=== PATIENT | male | born 1960 | race Caucasian/White ===

== ENCOUNTER 2018-03-06 11:48 | Emergency (ER) | payer OTHER ==
--- OUTSIDE RECORDS SUMMARY | 2018-03-06 11:53 | XMS REPORT | Clinical Summary ---
:1960 Author Organization [facility] Address [address] [place] [address] Phone Care Team Providers Name Role Phone Unavailable Primary Care Provider Unavailable Allergies Active Allergy Reactions Severity Noted Date Comments Morphine Nausea Only High 11/20/2017 Current Medications Prescription Sig. Disp. Refills Start End Status Date Date levothyroxine Take 50 mcg by Active (SYNTHROID, mouth Every LEVOTHROID) 50 MCG morning on an tablet empty stomach. insulin aspart Inject 10 Units Active (NOVOLOG) 100 subcutaneously 3 unit/mL InPn (three) times daily before meals And per sliding scale . insulin glargine Inject 30 Units Active 100 unit/mL (3 mL) subcutaneously 2 InPn (two) times daily . digoxin (LANOXIN) Take 1 tablet 30 tablet 05/15/20 Active 0.125 MG tablet (125 mcg total) 17 018 by mouth daily. carvedilol (COREG) Take 1.5 tablets 90 tablet 06/08/20 Active 25 MG (37.5 mg total) 17 018 tabletIndications: by mouth 2 (two) Cardiomyopathy, times daily with unspecified type breakfast and ([facility]), LVAD (left dinner. ventricular assist device) present ([facility]), Personal history of long-term (current) use of anticoagulants, Ischemic cardiomyopathy, Chronic systolic CHF (congestive heart failure) ([facility]) atorvastatin Take 1 tablet (20 30 tablet 07/31/20 Active (LIPITOR) 20 MG mg total) by 17 018 tablet mouth daily. losartan (COZAAR) Take 1 tablet 30 tablet 08/03/20 Active 100 MG tablet (100 mg total) by 17 mouth daily. ferrous sulfate Take 1 tablet 60 tablet 11 08/03/20 Active 325 (65 FE) MG (325 mg total) by 17 018 tablet mouth 2 (two) times daily with breakfast and dinner. gabapentin Take by mouth as Active (NEURONTIN) 100 MG directed Take 400 capsule mg ( 300 mg + 100 mg) three times daily . zolpidem (AMBIEN) Take 10 mg by Active 10 mg tablet mouth every night as needed for Insomnia. folic acid Take 1 tablet (1 90 tablet 3 12/02/19 Active (FOLVITE) 1 MG mg total) by 18 019 tablet mouth daily. amLODIPine Take 1 tablet (5 30 tablet 01/11/20 Active (NORVASC) 5 MG mg total) by 18 019 tabletIndications: mouth daily. Left ventricular assist device present (HCC), LVAD (left ventricular assist device) present (HCC), IDDM (insulin dependent diabetes mellitus) (HCC), Chronic anticoagulation, Depression, unspecified depression type, Coronary artery disease involving [place] coronary artery of [place] heart without angina pectoris, Ischemic cardiomyopathy, AICD (automatic cardioverter/defib rillator) present, Neuropathy tamsulosin Take 1 capsule 90 capsule 3 02/14/20 Active (FLOMAX) 0.4 mg (0.4 mg total) by 18 019 Cp24 24 hr mouth daily. capsuleIndications : Coronary artery disease involving [place] coronary artery of [place] heart without angina pectoris, Essential hypertension, Type 2 diabetes mellitus with other circulatory complication, unspecified rodent exterminator insulin use status, Left ventricular assist device present (HCC), IDDM (insulin dependent diabetes mellitus) (HCC), LVAD (left ventricular assist device) present (HCC), Nonischemic cardiomyopathy (HCC) bumetanide (BUMEX) Take 1 tablet (1 90 tablet 3 02/14/20 Active 1 MG mg total) by 18 019 tabletIndications: mouth daily. Coronary artery disease involving [place] ore[place] coronary artery of [place] heart without angina pectoris, Essential hypertension, Type 2 diabetes mellitus with other circulatory complication, unspecified long-term insulin use status, Left ventricular assist device present (HCC), IDDM (insulin dependent diabetes mellitus) (HCC), LVAD (left ventricular assist device) present (HCC), Nonischemic cardiomyopathy (HCC) eplerenone Take 1 tablet (25 90 tablet 3 02/14/20 Active (INSPRA) 25 MG mg total) by 18 019 tabletIndications: mouth daily. Coronary artery disease involving [place] coronary artery of [place] heart without angina pectoris, Essential hypertension, Type 2 diabetes mellitus with other circulatory complication, unspecified long-term insulin use status, Left ventricular assist device present (HCC), IDDM (insulin dependent diabetes mellitus) (HCC), LVAD (left ventricular assist device) present (HCC), Nonischemic cardiomyopathy (HCC) warfarin 6 mg daily by 03/01/20 Active (COUMADIN) 1 MG mouth. 18 tabletIndications: LVAD (left ventricular assist device) present (HCC), IDDM (insulin dependent diabetes mellitus) (HCC), Chronic anticoagulation, Depression, unspecified depression type, Coronary artery disease involving [place] coronary artery of [place] heart without angina pectoris, Ischemic cardiomyopathy, AICD (automatic cardioverter/defib rillator) present, Neuropathy warfarin 6 mg daily by 03/01/20 Active (COUMADIN) 5 MG mouth. 18 tabletIndications: LVAD (left ventricular assist device) present (HCC), IDDM (insulin dependent diabetes mellitus) (HCC), Chronic anticoagulation, Depression, unspecified depression type, Coronary artery disease involving [place] coronary artery of [place] heart without angina pectoris, Ischemic cardiomyopathy, AICD (automatic cardioverter/defib rillator) present, Neuropathy digoxin (LANOXIN) Take 1 tablet 360 tablet 0 05/05/20 0.125 MG tablet (125 mcg total) 16 017 by mouth daily. atorvastatin Take 1 tablet (20 30 tablet 11 06/30/20 Discontinued (LIPITOR) 20 MG mg total) by 16 017 tablet mouth daily. gabapentin Take 1 capsule 90 capsule 3 10/06/20 Discontinued (NEURONTIN) 300 MG (300 mg total) by 16 018 capsuleIndications mouth 3 (three) : Chronic systolic times daily. CHF (congestive heart failure) (HCC), Ischemic cardiomyopathy, Hyperlipidemia, Cardiomyopathy (HCC), LVAD (left ventricular assist device) present (HCC), Personal history of long-term (current) use of anticoagulants folic acid Take 1 tablet (1 30 tablet 11 11/29/19 Discontinued (FOLVITE) 1 MG mg total) by 17 018 tablet mouth daily. insulin aspart Inject 0.22 mLs 13.2 mL 11 01/20/20 Discontinued protamine-insulin (22 Units total) 17 017 aspart (NOVOLOG subcutaneously 2 MIX 70/30) 100 (two) times daily unit/mL (70-30) with breakfast Soln injection and dinner. ivabradine Take 1 tablet (5 60 tablet 11 01/20/20 (CORLANOR) 5 mg mg total) by 17 018 Tab tablet mouth 2 (two) times daily. magnesium oxide Take 1 tablet 60 tablet 11 01/20/20 (MAG-OX) 400 mg (400 mg total) by 17 018 tablet mouth 2 (two) times daily. tamsulosin Take 1 capsule 30 capsule 11 01/20/20 (FLOMAX) 0.4 mg (0.4 mg total) by 17 018 Cp24 24 hr capsule mouth daily. aluminum & Take 30 mLs by 355 mL 0 01/20/20 magnesium mouth every 6 17 018 hydroxide-simethic (six) hours as one (MAALOX PLUS) needed. 400-400-40 mg/[address] 1 365 0 01/20/20 (DULCOLAX) 10 mg suppository (10 suppository 17 017 suppository mg total) rectally daily as needed for up to 150 days. docusate sodium Take 1 capsule 10 capsule 0 01/20/20 (COLACE) 100 MG (100 mg total) by 17 018 capsule mouth 2 (two) times daily. pantoprazole Take 1 tablet (40 60 tablet 11 01/20/20 (PROTONIX) 40 MG mg total) by 17 018 tablet mouth 2 (two) times daily. senna (SENOKOT) Take 1 tablet 30 tablet 11 01/20/20 8.6 mg tablet (8.6 mg total) by 17 018 mouth every night as needed for Constipation. simethicone Take 1 tablet (80 30 tablet 0 01/20/20 (MYLICON) 80 MG mg total) by 17 018 chewable tablet mouth every 6 (six) hours as needed for Flatulence. sertraline Sertraline take 36 tablet 01/20/20 (ZOLOFT) 25 MG three tab (75mg) 17 018 tablet per day on Mon, Wed, Fri. sertraline Sertraline 50mg 16 tablet 01/20/20 (ZOLOFT) 50 MG one tab per day 17 018 tablet on Sun, Tue, Thurs, and Sat. losartan (COZAAR) Take 1 tablet (50 30 tablet 01/31/20 Discontinued 50 MG tablet mg total) by 17 017 mouth daily. eplerenone Take 1 tablet (25 30 tablet 01/31/20 (INSPRA) 25 MG mg total) by 17 018 tablet mouth daily. warfarin Take by mouth as 01/20/20 Discontinued (COUMADIN) 3 MG directed Take 7 17 017 tablet mg every MWF, take 6 mg every Sun, Tues, Thurs, Sat. warfarin as directed Take 01/20/20 Discontinued (COUMADIN) 4 MG 7 mg every MWF, 17 017 tablet take 6 mg every Sun, Tues, Thurs, Sat. bumetanide (BUMEX) Take 1 tablet (1 30 tablet 02/13/20 1 MG mg total) by 17 018 tabletIndications: mouth daily. Cardiomyopathy ([facility]), LVAD (left ventricular assist device) present ([facility]), Personal history of long-term (current) use of anticoagulants, Ischemic cardiomyopathy, Chronic systolic CHF (congestive heart failure) ([facility]) carvedilol (COREG) Take 1 tablet (25 60 tablet 02/13/20 Discontinued 25 MG mg total) by 17 017 tabletIndications: mouth 2 (two) Cardiomyopathy times daily with ([facility]), LVAD (left breakfast and ventricular assist dinner. device) present ([facility]), Personal history of long-term (current) use of anticoagulants, Ischemic cardiomyopathy, Chronic systolic CHF (congestive heart failure) ([facility]) carvedilol (COREG) Take 1.5 tablets 60 tablet 03/16/20 Discontinued 25 MG (37.5 mg total) 017 tabletIndications: by mouth 2 (two) Cardiomyopathy, times daily with unspecified type breakfast and ([facility]), LVAD (left dinner. ventricular assist device) present ([facility]), Personal history of long-term (current) use of anticoagulants, Ischemic cardiomyopathy, Chronic systolic CHF (congestive heart failure) ([facility]) warfarin Take one tab PO 30 tablet 5 04/20/20 Discontinued (COUMADIN) 5 MG with additional 1 017 tabletIndications: mg tabs for total LVAD (left of 7 mg MWF, 6 mg ventricular assist all other days. device) present ([facility]), IDDM (insulin dependent diabetes mellitus) ([facility]), Chronic anticoagulation, Depression, unspecified depression type, Coronary artery disease involving [place] coronary artery of [place] heart without angina pectoris, Ischemic cardiomyopathy, Type 2 diabetes mellitus with other circulatory complication, AICD (automatic cardioverter/defib rillator) present, Neuropathy warfarin Take PO with 5 mg 90 tablet 5 04/20/20 Discontinued (COUMADIN) 1 MG tab for total of 017 tabletIndications: 7 mg MWF, 6 mg LVAD (left all other days. ventricular assist device) present ([facility]), IDDM (insulin dependent diabetes mellitus) ([facility]), Chronic anticoagulation, Depression, unspecified depression type, Coronary artery disease involving [place] ore[place] coronary artery of [place] heart without angina pectoris, Ischemic cardiomyopathy, Type 2 diabetes mellitus with other circulatory complication, AICD (automatic cardioverter/defib rillator) present, Neuropathy empagliflozin Take 1 tablet (10 30 tablet 5 08/31/20 Discontinued (JARDIANCE) 10 mg mg total) by 017 tablet mouth daily. Missing or 3 (three) times Discontinued Non-Formulary daily V-Go 2-4 018 Medication units depends on blood sugar . sildenafil Take 0.5 tablets 30 tablet 3 10/05/20 (VIAGRA) 100 MG (50 mg total) by 017 tabletIndications: mouth daily as LVAD (left needed for ventricular assist Erectile device) present Dysfunction for ([facility]), IDDM up to 30 days. (insulin dependent diabetes mellitus) ([facility]), Chronic anticoagulation, Depression, unspecified depression type, Coronary artery disease involving [place] coronary artery of [place] heart without angina pectoris, Ischemic cardiomyopathy, AICD (automatic cardioverter/defib rillator) present, Neuropathy warfarin Take PO with 5 mg 90 tablet 11 11/15/20 Discontinued (COUMADIN) 1 MG tab for total of 17 018 tabletIndications: 7 mg MWF, 6 mg LVAD (left all other days. ventricular assist device) present (HCC), IDDM (insulin dependent diabetes mellitus) ([facility]), Chronic anticoagulation, Depression, unspecified depression type, Coronary artery disease involving [place] coronary artery of [place] heart without angina pectoris, Ischemic cardiomyopathy, AICD (automatic cardioverter/defib rillator) present, Neuropathy warfarin Take one tab PO 30 tablet 11 11/15/20 Discontinued (COUMADIN) 5 MG with additional 1 17 018 tabletIndications: mg tabs for total LVAD (left of 7 mg MWF, 6 mg ventricular assist all other days. device) present ([facility]), IDDM (insulin dependent diabetes mellitus) ([facility]), Chronic anticoagulation, Depression, unspecified depression type, Coronary artery disease involving [place] ore[place] coronary artery of [place] heart without angina pectoris, Ischemic cardiomyopathy, AICD (automatic cardioverter/defib rillator) present, Neuropathy nystatin Apply topically 2 30 g 0 12/01/19 Discontinued (MYCOSTATIN) (two) times 18 018 100,000 unit/gram daily. cream triamcinolone Apply topically 2 30 g 0 12/01/19 (KENALOG) 0.1 % (two) times daily 18 018 topical cream for 7 days to affected area.. Hospital, Clinic, or Other Ordered Dose Route Frequency Start Date End Date Status Facility Administered Medication influenza vaccine (PF) 0.5 mL IM Once 08/31/2017 08/31/2017 Ended [id number] (AFLURIA) syringe (5 yrs+)Indications: Flu vaccine need Active Problems Patient Care Coordination Note Patient info: 56 year old male with h/o T2DM, HTN, CKD, HLD, HCV, CAD, ischemic CMP s/p LVAD (HM2 as DT; 03/27/2016) c/b recurrent UGIB 07/25/16 and 01/18/16 , AVM and diverticulosis Most recent Admission: 11/21/2017- 11/30/2017: Admitted for abdominal pain and melena. He reports epigastric abdominal pain for one week that he describes as dull, non-radiating, and improves with eati ng. He then developed melena. On admission, he was hemodynamically stable. His labs revealed anemia with hemoglobin of 8.7 decreased from 11 at baseline. His INR was therapeutic at 2.3. Other labs withi n normal limits. He was transfused and hemoglobin increased to 9.9. EGD on 11/22 revealed polyps in gastric antrum. No bleeding identified. 01/13/2017 - 01/19/2017. Pt with h/o LVAD on coumadin presented with melena. He has h/o small bowel AVMs. GI performed balloon enteroscopy after coumadin was held and did not find any lesions or signs o f bleeding. Pt was restarted on coumadin and hep drip and monitored with no recurrence of bleeding in house. His INR goal is now lowered to 1.5-2.5 due to recurrent GI bleed. He is stable for dc home and will f/u in the HF/transplant clinic. Transplant status: DT - + cannabis screens with admitted continued cannabis use Immunization status: There is no immunization history on file for this patient. Current Pump Speed: 9000 RPMs Speed change Echo due : Due. Ordered for 02/28/2018. Needs to be scheduled Last Echo: 05/25/2017 Next ICD Interrogation: 07/11/2018 Last ICD interrogation: 01/11/2018 Last RHC: 03/07/2016 AC Goal: 1.5-2.5 Problem Noted Date Cardiomyopathy (HCC) 11/21/2017 GI bleed 11/20/2016 Acute blood loss anemia 11/20/2016 Upper GI bleed 11/19/2016 Anemia requiring transfusions 11/19/2016 Syncope 11/06/2016 Musculoskeletal chest pain 09/29/2016 Substernal chest pain 09/28/2016 HM II, 03/27/2016, DT due to smoking 09/28/2016 IDDM (insulin dependent diabetes mellitus) (HCC) 08/28/2016 Neuropathy 08/28/2016 Gastrointestinal hemorrhage with melena 07/21/2016 Chronic anticoagulation 04/18/2016 Overview: Recent history of AVM, off ASA Currently on Coumadin at 6 mg daily Repeat INR weekly Anemia, blood loss 04/18/2016 Chronic post-operative pain 04/18/2016 Depression 04/18/2016 Hypothyroidism 04/18/2016 Overview: UPDATED BY ICD10 SNOMED/IMO UPDATES Right heart failure (HCC) 03/28/2016 Left ventricular assist device, Heartmate II, implanted 03/27/16 03/27/2016 Overview: Last echo on 06/04/2018: showing increased LVIDd of 5.1 from 4.25, AV opens Repeat speed change echo on 02/28/2018 - pending Current speed of 9000 rpms LDH stable DL site clean and dry No VAD alarms reported Chronic renal disease, stage III 06/18/2015 Overview: Cr ranges 1 - 1.4 Diuretics Chronic systolic CHF due to ischemic cardiomyopathy Overview: NYHA III, Stage D - Bumex 1 mg daily - Carvedilol 37.5 mg BID - Digoxin 0.125 mg QD - Ivabradine 5 mg BID - Eplerenone 25 mg daily - Losartan 100 mg qd for afterload reduction Intolerant to Entresto RHC/LHC done 07/2017 class 2 CAD (coronary artery disease), s/p stent to LAD Overview: Last LHC 10/2014 with 50% stenosis to RCA, OM2, proximal LAD. Patent stent. ASA off due to GIB Atorvastatin Hyperlipidemia Essential hypertension Overview: - Coreg 37.5 mg BID - Losartan 100 mg qd - Add amlodipine 5 mg daily Type 2 diabetes mellitus with circulatory disorder (HCC) Hepatitis C AICD (automatic cardioverter/defibrillator) present, MDT Nonischemic cardiomyopathy (HCC) Resolved Problems Problem Noted Date Resolved Date Ischemic cardiomyopathy 09/18/2017 Encounters Date Type Specialty Care Team Description 03/04/2018 Abstract Transplant Lucrecia Fuentes Rita 03/02/2018 [facility] Charge Visit Transplant Mariah Nieto MD Provider, [facility] Registry Generic 03/01/2018 Hospital Encounter Cardiology Mariah Nieto Left ventricular MD Bettie assist device present (HCC);Left ventricular assist device, HM II, implanted 03/27/2016, DT due to smoking;IDDM (insulin dependent diabetes mellitus) (HCC);Chronic anticoagulation;Depr ession, unspecified depression type;Coronary artery disease involving [place] ore[place] coronary artery of [place] heart without angina pectoris;Ischemic cardiomyopathy;AICD (automatic cardioverter/defibri llator) present, MDT;Neuropathy 03/01/2018 Clinic Visit Transplant Mariah Nieto Chronic systolic CHF MD Bettie due to ischemic cardiomyopathy;Left ventricular assist device, Heartmate II, implanted 03/27/16;Chronic anticoagulation;Ronda nary artery disease involving [place] ore[place] coronary artery of [place] heart without angina pectoris;Essential hypertension;Chronic renal disease, stage III;Left ventricular assist device, HM II, implanted 03/27/2016, DT due to smoking;IDDM (insulin dependent diabetes mellitus) ([facility]) 02/26/2018 Abstract Transplant Lucrecia Fuentes 02/26/2018 Abstract Transplant Tito Sauer, KENZIE 02/21/2018 Anti-coag visit Transplant Abad Perez RN 02/21/2018 Abstract Transplant Benedict Peterson 02/19/2018 Telephone Transplant Tito Saure, Follow-up RN 02/19/2018 Committee Review Transplant Dany Mercado RN 02/18/2018 Committee Review Transplant Tito Sauer, RN 02/14/2018 Anti-coag visit Transplant Abad Perez, KENZIE 02/14/2018 Abstract Transplant Benedict Peterson 02/13/2018 Orders Only Intensive Care Abad Perez, Coronary artery RN disease involving [place] cour[place] oreilles coronary artery of [place] heart without angina pectoris (Primary Dx);Essential hypertension;Type 2 diabetes mellitus with other circulatory complication, unspecified rodent exterminator insulin use status (HCC);Left ventricular assist device, Heartmate II, implanted 03/27/16;IDDM (insulin dependent diabetes mellitus) (HCC);HM II, 03/27/2016, DT due to smoking;Nonischemic cardiomyopathy (HCC) 02/08/2018 Anti-coag visit Transplant Abad Perez RN 02/07/2018 Anti-coag visit Transplant Cindy Yeung RN 02/07/2018 Abstract Transplant Benedict Peterson 01/31/2018 Anti-coag visit Transplant Abad Perez RN 01/31/2018 Abstract Transplant Benedict Peterson 01/25/2018 Anti-coag visit Transplant Leonela Zavala RN 01/25/2018 Abstract Transplant Benedict Peterson 01/21/2018 Documentation Transplant Shoshana Gonzalez 01/18/2018 Anti-coag visit Transplant Abad Perez RN 01/17/2018 Anti-coag visit Transplant Silvia De La Cruz RN 01/17/2018 Abstract Transplant Benedict Peterson 01/11/2018 Office Visit Cardiology Leandro Martines, Chronic systolic CHF FAMILY READINESS SUPPORT ASSISTANT (congestive heart failure) ([facility]) (Primary Dx) 01/11/2018 Hospital Encounter Cardiology Mariah Nieto MD assist device present (HCC);Left ventricular assist device, HM II, implanted 03/27/2016, DT due to smoking;IDDM (insulin dependent diabetes mellitus) ([facility]);Chronic anticoagulation;Depr ession, unspecified depression type;Coronary artery disease involving [place] coronary artery of [place] heart without angina pectoris;Ischemic cardiomyopathy;AICD (automatic cardioverter/defibri llator) present, MDT;Neuropathy 01/11/2018 Clinic Visit Transplant Mariah Nieto MD assist device present ([facility]) (Primary Dx);Left ventricular assist device, HM II, implanted 03/27/2016, DT due to smoking;IDDM (insulin dependent diabetes mellitus) ([facility]);Chronic anticoagulation;Depr ession, unspecified depression type;Coronary artery disease involving [place] ore[place] coronary artery of [place] heart without angina pectoris;Ischemic cardiomyopathy;Type 2 diabetes mellitus with other circulatory complication 01/04/2018 Anti-coag visit Transplant Abad Perez, KENZIE 01/04/2018 Abstract Transplant Benedict Peterson 12/27/2017 Anti-coag visit Transplant Abad Perez, KENZIE 12/27/2017 Abstract Transplant Benedict Peterson 12/20/2017 Abstract Transplant Benedict Peterson 12/20/2017 Documentation Transplant Shoshana Gonzalez 12/20/2017 Documentation Transplant Shoshana Gonzalez 12/13/2017 Anti-coag visit Transplant Leonela Zavala RN 12/13/2017 Abstract Transplant Benedict Peterson 12/06/2017 Anti-coag visit Transplant Abad Perez, KENZIE 12/06/2017 Abstract Transplant Benedict Peterson 11/22/2017 Procedure Pass Gastroenterology 11/22/2017 Surgery Gastroenterology Amaratunge, UPPER Harshinie ENDOSCOPY,POLYPECTOM MD Nicky Y 11/21/2017 Hospital Encounter Transplant Sandeep Brown MD cardiomyopathy 12/01/2017 Estella, (Primary MD Rory Dx);Gastrointestinal Hasan, Luigi Ali hemorrhage with MD Israel melena;Left Massumi, Susan ventricular assist MD Darian device, Heartmate II, implanted 03/27/16;Anemia, blood loss;Acute blood loss anemia;LVAD (left ventricular assist device) present (HCC);HM II, 03/27/2016, DT due to smoking 11/21/2017 Anesthesia Event Gastroenterology Kt Beckett, AA 11/21/2017 Telephone Transplant Lenoela Zavala, Follow-up (bloody RN stool and nose bleed) 11/16/2017 Anti-coag visit Transplant Abad Perez RN 11/15/2017 Orders Only Transplant Abad Perez Left ventricular RN assist device, II, implanted 03/27/2016, DT due to smoking;IDDM (insulin dependent diabetes mellitus) (HCC);Chronic anticoagulation;Depr ession, unspecified depression type;Coronary artery disease involving [place] ore[place] coronary artery of [place] heart without angina pectoris;Ischemic cardiomyopathy;AICD (automatic cardioverter/defibri llator) present, MDT;Neuropathy 11/07/2017 Abstract Hepatology Adriana Rodriguez RN 11/05/2017 Anti-coag visit Transplant Abad Perez RN 11/05/2017 Abstract Transplant Benedict Peterson 10/26/2017 Anti-coag visit Transplant Abad Perez RN 10/26/2017 Abstract Transplant Benedict Peterson 10/18/2017 Anti-coag visit Transplant Trang Ventura RN 10/18/2017 Abstract Transplant Benedict Peterson 10/05/2017 Clinic Visit Transplant Gio Nguyen Left ventricular MD assist device, GersonMariah II, garcía Alexandre MD 03/27/2016, DT due to smoking;IDDM (insulin dependent diabetes mellitus) (HCC);Chronic anticoagulation;Depr ession, unspecified depression type;Coronary artery disease involving [place] coronary artery of [place] heart without angina pectoris;Ischemic cardiomyopathy;Type 2 diabetes mellitus with other circulatory complication;AICD (automatic cardioverter/defibri llator) present, MDT;Neuropathy 10/05/2017 Hospital Encounter Radiology Tish Hauser Pulmonary nodule [place], LLOYD 10/02/2017 Abstract Hepatology Adriana Rodriguez, KENZIE 09/28/2017 Abstract Hepatology Adriana Rodriguez RN 09/28/2017 Anti-coag visit Transplant Abad Perez RN 09/28/2017 Abstract Transplant Benedict Peterson 09/27/2017 Office Visit Hepatology Yung Herrera History of hepatitis MD Evelin C (Primary Fred, Dx);Hepatic fibrosis Adriana Loomis, (HCC);Immunity RN status testing;History of alcohol abuse;Other cardiomyopathy (HCC);Obesity (BMI 30-39.9) 09/21/2017 Abstract Transplant Lucrecia Fuentes Rita 09/20/2017 Anti-coag visit Transplant Abad Perez RN 09/20/2017 Abstract Transplant Benedict Peterson 09/18/2017 Telephone Transplant Tito Sauer Follow-up RN 09/13/2017 Anti-coag visit Transplant Abad Perez RN 09/12/2017 Lab Requisition Lab Mariah Nieto MD 09/07/2017 Telephone Transplant AVA Mercado RN 09/06/2017 Committee Review Transplant Tito Sauer RN 09/06/2017 Anti-coag visit Transplant Abad Perez RN 09/06/2017 Abstract Transplant Benedict Peterson 09/04/2017 Documentation Transplant Silvia De La Cruz RN 09/04/2017 Telephone Transplant Tish Hauser Follow-carina Samson NP 09/04/2017 Lab Requisition Lab Mariah Nieto MD 08/31/2017 Clinic Visit Transplant Tish Hauser Flu vaccine need LLOYD Samson (Primary Mariah Nieto Dx);Pulmonary nodule MD Bettie 08/31/2017 Hospital Encounter Radiology Tish Hauser LVAD (left [place], FAMILY READINESS SUPPORT ASSISTANT ventricular assist device) present (HCC);Dilated cardiomyopathy (HCC);Systolic congestive heart failure, unspecified congestive heart failure chronicity (HCC) 08/31/2017 Hospital Encounter Tish Hauser LVAD (left [place], FAMILY READINESS SUPPORT ASSISTANT ventricular assist device) present (HCC);Dilated cardiomyopathy (HCC);Systolic congestive heart failure, unspecified congestive heart failure chronicity (HCC) 08/31/2017 Hospital Encounter Respiratory Therapy Tish Hauser LVAD (left [place], FAMILY READINESS SUPPORT ASSISTANT ventricular assist device) present (HCC);Dilated cardiomyopathy (HCC);Systolic congestive heart failure, unspecified congestive heart failure chronicity (HCC) 08/31/2017 Hospital Encounter Respiratory Therapy Feeler, Tish LVAD (left [place], FAMILY READINESS SUPPORT ASSISTANT ventricular assist device) present (HCC);Dilated cardiomyopathy (HCC);Systolic congestive heart failure, unspecified congestive heart failure chronicity (HCC) 08/31/2017 Telephone Transplant Dorothy, Advice Only Silvia Arroyo RN 08/31/2017 Orders Only Transplant Silvia De La Cruz RN 08/31/2017 Orders Only Transplant Tito Sauer, Systolic congestive medical instrument technician failure, unspecified congestive heart failure chronicity (HCC) 08/31/2017 Orders Only Transplant Tito Sauer, Systolic congestive medical instrument technician failure, unspecified congestive heart failure chronicity (HCC) (Primary Dx) 08/30/2017 Hospital Encounter Cardiology Feeler, Tish LVAD (left [place], FAMILY READINESS SUPPORT ASSISTANT ventricular assist device) present (HCC);Dilated cardiomyopathy (HCC);Systolic congestive heart failure, unspecified congestive heart failure chronicity (HCC) 08/30/2017 Hospital Encounter Radiology Feeler, Tish LVAD (left [place], FAMILY READINESS SUPPORT ASSISTANT ventricular assist device) present (HCC);Dilated cardiomyopathy (HCC);Systolic congestive heart failure, unspecified congestive heart failure chronicity (HCC) 08/30/2017 Hospital Encounter Radiology Feeler, Tish LVAD (left [place], FAMILY READINESS SUPPORT ASSISTANT ventricular assist device) present (HCC);Dilated cardiomyopathy (HCC);Systolic congestive heart failure, unspecified congestive heart failure chronicity (HCC) 08/30/2017 Hospital Encounter Cardiology Feeler, Tish LVAD (left [place], FAMILY READINESS SUPPORT ASSISTANT ventricular assist device) present (HCC);Dilated cardiomyopathy (HCC);Systolic congestive heart failure, unspecified congestive heart failure chronicity (HCC) 08/30/2017 Office Visit Transplant Mariah Nieto Left ventricular MD Bettie assist device, Miladys Gtz II, implanted J, [facility] 03/27/2016, DT due to Cindy Zavala smoking;IDDM A, RN (insulin dependent Tito Sauer, diabetes mellitus) RN ([facility]);Chronic Waqar, anticoagulation;Depr Cindy M, ession, unspecified EFFICIENCY MINER BLASTING depression Matos, Maricruz type;Coronary artery L, RD disease involving [place], [place] coronary [place] artery of [place] heart without angina pectoris;Ischemic cardiomyopathy;Type 2 diabetes mellitus with other circulatory complication;AICD (automatic cardioverter/defibri llator) present, MDT;Neuropathy 08/30/2017 Social Work Transplant Waqar Cindy Rita, EFFICIENCY MINER BLASTING 08/30/2017 Abstract Transplant Tito Sauer, Systolic congestive medical instrument technician failure, unspecified congestive heart failure chronicity (HCC) (Primary Dx) 08/29/2017 Outside Orders Tish Hauser, FAMILY READINESS SUPPORT ASSISTANT 08/23/2017 Anti-coag visit Transplant Abad Perez, KENZIE 08/23/2017 Abstract Transplant Benedict Peterson 08/16/2017 Anti-coag visit Transplant Trang Ventura, KENZIE 08/16/2017 Abstract Transplant Benedict Peterson 08/07/2017 Telephone Transplant Tito Sauer, Follow-up RN 08/06/2017 Abstract Transplant Osorio Mendoza 08/03/2017 Clinic Visit Transplant Gio Nguyen Left ventricular MD assist device, Mariah iNeto II, implanted KMD Elle 03/27/2016, DT due to smoking;IDDM (insulin dependent diabetes mellitus) (HCC);Chronic anticoagulation;Depr ession, unspecified depression type;Coronary artery disease involving [place] coronary artery of [place] heart without angina pectoris;Ischemic cardiomyopathy;Type 2 diabetes mellitus with other circulatory complication (HCC);AICD (automatic cardioverter/defibri llator) present, MDT 07/31/2017 Orders Only Transplant Trang Ventrua, KENZIE 07/30/2017 Abstract Transplant Benedict Peterson 07/26/2017 Anti-coag visit Transplant Trang Ventura, KENZIE 07/26/2017 Abstract Transplant Benedict Peterson 07/20/2017 Clinic Visit Transplant Mariah Nieto LVAD (tanisha Alexandre MD ventricular assist device) present (HCC) 07/19/2017 Anti-coag visit Transplant Abad Perez, KENZIE 07/19/2017 Telephone Transplant Marlene Bhatt 07/12/2017 Telephone Transplant Dorothy, Advice Only Silvia Arroyo RN 07/12/2017 Anti-coag visit Transplant Abad Perez, KENZIE 07/12/2017 Abstract Transplant Benedict Peterson 07/06/2017 Anti-coag visit Transplant Abad Perez, KENZIE 07/06/2017 Abstract Transplant Benedict Peterson 07/06/2017 Abstract Transplant Benedict Peterson 06/28/2017 Anti-coag visit Transplant Abad Perez RN 06/28/2017 Abstract Transplant Benedict Peterson 06/21/2017 Anti-coag visit Transplant Abad Perez RN 06/21/2017 Abstract Transplant Benedict Peterson 06/14/2017 Anti-coag visit Transplant Abad Perez RN 06/14/2017 Abstract Transplant Benedict Peterson 06/08/2017 Orders Only Transplant Abad Perez, Cardiomyopathy, RN unspecified type ([facility]);LVAD (left ventricular assist device) present ([facility]);Personal history of long-term (current) use of anticoagulants;Ische rodney cardiomyopathy;Chron ic systolic CHF (congestive heart failure) ([facility]) 06/06/2017 Telephone Transplant Tish Hauser plan LLOYD Samson 06/04/2017 Clinic Visit Transplant Gio Nguyen, Left ventricular MD assist device Tish Hauser present ([facility]) LLOYD Samson (Primary Dx);Left ventricular assist device, HM II, implanted 03/27/2016, DT due to smoking;IDDM (insulin dependent diabetes mellitus) ([facility]);Chronic anticoagulation;Depr ession, unspecified depression type;Coronary artery disease involving [place] coronary artery of [place] heart without angina pectoris;Ischemic cardiomyopathy;Type 2 diabetes mellitus with other circulatory complication ([facility]) 06/04/2017 Hospital Encounter Cardiology Left ventricular assist device present (HCC) 06/04/2017 Hospital Encounter Cardiology Mariah Nieto MD assist device, HM II, implanted 03/27/2016, DT due to smoking;IDDM (insulin dependent diabetes mellitus) ([facility]);Chronic anticoagulation;Depr ession, unspecified depression type;Coronary artery disease involving [place] coronary artery of [place] heart without angina pectoris;Ischemic cardiomyopathy;Type 2 diabetes mellitus with other circulatory complication ([facility]);AICD (automatic cardioverter/defibri llator) present, MDT 05/24/2017 Anti-coag visit Transplant Abad Perez RN 05/24/2017 Abstract Transplant Benedict Peterson 05/17/2017 Anti-coag visit Transplant Silvia De La Cruz RN 05/17/2017 Abstract Transplant Benedict Peterson 05/15/2017 Orders Only Transplant Angelitohina, Silvia Sosa RN unspecified type ([facility]);LVAD (left ventricular assist device) present ([facility]);Personal history of long-term (current) use of anticoagulants;Ische rodney cardiomyopathy;Chron ic systolic CHF (congestive heart failure) (HCC) 05/10/2017 Anti-coag visit Transplant Leonela Zavala RN 05/10/2017 Abstract Transplant Benedict Peterson 05/03/2017 Anti-coag visit Transplant Abad Perez RN 05/03/2017 Abstract Transplant Benedict Peterson 04/26/2017 Anti-coag visit Transplant Abad Perez RN 04/26/2017 Abstract Transplant Benedict Peterson 04/25/2017 Clinic Visit Transplant Orion Left ventricular Marcus Faustin MD assist device, HM II, implanted 03/27/2016, DT due to smoking (Primary Dx);IDDM (insulin dependent diabetes mellitus) ([facility]);Chronic anticoagulation;Depr ession, unspecified depression type;Coronary artery disease involving [place] coronary artery of [place] heart without angina pectoris;Ischemic cardiomyopathy;Type 2 diabetes mellitus with other circulatory complication (HCC) 04/20/2017 Clinic Visit Transplant Tish Hauser Left ventricular LLOYD Samson assist device, HM II, implanted 03/27/2016, DT due to smoking;IDDM (insulin dependent diabetes mellitus) (HCC);Chronic anticoagulation;Depr ession, unspecified depression type;Coronary artery disease involving [place] coronary artery of [place] heart without angina pectoris;Ischemic cardiomyopathy;Type 2 diabetes mellitus with other circulatory complication (HCC);AICD (automatic cardioverter/defibri llator) present, MDT 04/12/2017 Anti-coag visit Transplant Abad Perez RN 04/12/2017 Abstract Transplant Benedict Peterson 04/05/2017 Anti-coag visit Transplant Abad Perez RN 04/05/2017 Abstract Transplant Benedict Peterson 03/29/2017 Anti-coag visit Transplant Abad Perez RN 03/29/2017 Abstract Transplant Benedict Peterson 03/22/2017 Anti-coag visit Transplant Abad Perez RN 03/16/2017 Initial consult Transplant Maricruz Matos Rebeca Alexander RD 03/16/2017 Clinic Visit Transplant Mariah Nieto MD ([facility]);LVAD (left [place], ventricular assist Marcus Faustin MD device) present ([facility]);Personal history of long-term (current) use of anticoagulants;Histo ry of marijuana use;Iron deficiency anemia;On statin therapy;Cardiomyopat hy, unspecified type (HCC);Ischemic cardiomyopathy;Chron ic systolic CHF (congestive heart failure) ([facility]) 03/15/2017 Abstract Transplant Benedict Peterson 03/08/2017 Anti-coag visit Transplant Abad Perez RN 03/08/2017 Abstract Transplant Benedict Peterson after 03/05/2017 Immunizations Name Dates Previously Given Next Due Influenza Three-TIV PF 5+ YR 08/31/2017 Family History Medical History Relation Name Comments defects Brother Relation Name Status Comments Brother Social History Tobacco Use Types Packs/Day Years Used Date Former Smoker 0.25 Quit: 12/28/2015 Smokeless Tobacco: Never Used Tobacco Cessation: Ready to Quit: Yes; Counseling Given: Yes Comments: e cigg with thc 12/28/2015 quit date. Alcohol Use Drinks/Week oz/Week Comments No social use Sex Assigned at Date Recorded Not on file Last Filed Vital Signs Vital Sign Reading Time Taken Blood Pressure 104/71 03/01/2018 9:09 AM CDT Pulse 77 03/01/2018 9:09 AM CDT Temperature 36.8 C (98.2 F) 03/01/2018 9:09 AM CDT Respiratory Rate 18 03/01/2018 9:09 AM CDT Oxygen Saturation 98% 03/01/2018 9:09 AM CDT Inhaled Oxygen Concentration - - Weight 113.4 kg (249 lb 14.4 oz) 03/01/2018 9:09 AM CDT Height 181.6 cm (5' 11.5") 03/01/2018 9:09 AM CDT Body Mass Index 34.37 03/01/2018 9:09 AM CDT Plan of Treatment Date Type Specialty Care Team Description 03/28/2018 Office Visit Hepatology Yung Herrera MD [address] [address] Resource, [facility] A 04/12/2018 Clinic Visit Transplant Mariah Nieto MD [address] [place] [address] [phone] 04/12/2018 Initial consult Transplant Maricruz Matos, RD Health Maintenance Due Date Last Done Comments INFLUENZA VACCINE 08/19/2018 08/31/2017 Implants Implanted Type Area Building Construction Teacher Device Expiration Model / Identifier Date Serial / Lot Ctrl Pkt Kt Seal Hrtmate Ii - [id number] Cardiovascular THORATEC SANJIV [id number] / Implanted: Qty: 1 on 03/27/2016 by Gene Pradhan MD VAD- [id number] / Collar Hmii Sealed Outflow [id number] - [id number] Cardiovascular N/A: THORATEC SANJIV 01/16/2019 [id number] / Implanted: Qty: 1 on 03/27/2016 by Gene Pradhan MD Chest / [id number] Ring Sewing Apical Strl 1065 - [id number] Cardiovascular N/A: THORATEC SANJIV 01/16/2019 1065 / Implanted: Qty: 1 on 03/27/2016 by Gene Pradhan MD Chest / [id number] Inflw Pack And Hmii Sealed [id number] - [id number] Cardiovascular N/A: THORATEC SANJIV 01/16/2019 [id number] / Implanted: Qty: 1 on 03/27/2016 by Gene Pradhan MD Chest / [id number] Graft Otflw Hmii Sealed [id number] - [id number] Cardiovascular N/A: THORATEC SANJIV 01/16/2019 [id number] / Implanted: Qty: 1 on 03/27/2016 by Gene Pradhan MD Chest / [id number] Ctrl Pkt Hrtmate Ii [id number] - [id number] Cardiovascular THORATEC SANJIV [id number] / Implanted: Qty: 1 on 03/27/2016 by Gene Pradhan MD [id number] / Ctrl Pkt Hrtmate Ii [id number] - [id number] Cardiovascular THORATEC SANJIV [id number] / Implanted: Qty: 1 on 03/27/2016 [id number] / Tachosil Absrb Ptch 4.8x4.8cm [id number] - [id number] Cement/Filler/Adh N/A: KRAUS:BIOSCI 02/16/2017 [id number] / Implanted: Qty: 1 on 03/27/2016 by Gene Pradhan MD esive Chest / [id number] Procedures Procedure Name Priority Date/Time Associated Diagnosis Comments UPPER 11/22/2017 3:00 PM Gastrointestinal ENDOSCOPY,POLYPECTOM TANK CAR RECONDITIONER hemorrhage, unspecified Y gastrointestinal hemorrhage type Special Needs (CV ANESTHESIA SCHEDULED WITH APRIL) CRITICAL CARE Routine 11/21/2017 2:54 AM TANK CAR RECONDITIONER after 03/05/2017 Results ECHOCARDIOGRAM REPORT - SCAN (03/01/2018 5:09 PM)2D Echo W/Doppler(CW/PW/Color ) (03/01/2018 10:30 AM)Only the most recent of2 resultswithin the time period is included. 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 Data Management Associate Sarwat Corley Interpreting John Henderson MD Physician Procedure Type of Study TTE procedure:2DECHO W DOPPLER(CW/PW/COLOR) (Routine) Indications:Known or suspected heart failure and LVAD Evaluation - Speed change. Clinical History HGB 13.0 HCT 40.9 % AICD, CAD, CKD, CHF, DM, Hep. C, HTN, ICMP s/p LVAD HM II (03/27/2016) Height: 71.5 inches Weight: 112.94 kg (249 lbs) BSA: 2.33 m^2 BMI: 34.24 kg/m^2 HR: 62 bpm BP: 104/71 mmHg Summary LVAD Device: HM II . Baseline Speed 9000 RPM. Other speeds assessed: 8600, 9400 RPM 9000 RPM (baseline) -LVIDd 5.0 cm; AoV opens ; AoV opening duration 152 ms; none AR; trace MR; mild TR; est RVSP=25 mmHg+ RAP; RVOT VTI=13.2 cm; Mitral E jamila=0.92 m/s; Ventricular septal position: indet. Inflow Cannula . Peak Systolic Velocity: 0.87 m/sec and Peak Diastolic Velocity: 0.4 m/sec. Outflow Graft . Peak Systolic Velocity: 1.04 m/sec and Peak Diastolic Velocity: 0.48 m/sec. 8600 RPM -LVIDd 5.3 cm; AoV opens ; AoV opening duration 168 ms; none AR; trace MR; mild TR; est RVSP=25 mmHg+ RAP; RVOT VTI=15.6 cm; Mitral E jamila=indet m/s; Ventricular septal position: indet. 9400 RPM -LVIDd 4.6 cm; AoV opens ; AoV opening duration 143 ms; none AR; mild MR; mild TR; est RVSP=25 mmHg+ RAP; RVOT VTI=12.3 cm; Mitral E jamila=indet m/s; Ventricular septal position: indet. Previous Study In comparison with the prior exam on 03-29-16 there are no significant changes. Signature Findings Technical Quality: Technically adequate exam. Left Ventricle No evidence of LV hypertrophy. The left ventricle is chamber size (by vol index) is severely enlarged (male - LVED vol >100ml/m2) . All of the LV segments are severely hypokinetic . Global LV systolic function severely reduced . Left AtriumLA size is mildly enlarged (35-41 ml/m2) . Right VentricleRV pacing wire is visualized . RV chamber size is mildly enlarged . Global RV systolic function is low normal . Right Atrium RA pacing wire is visualized . RA cavity size is normal . RA catheter is visualized . Aortic Valve Mild AoV cusp thickening. Mitral Valve Mild MV leaflet thickening. Tricuspid ValveMild tricuspid regurgitation. Estimated peak systolic PA pressure is 25 mmHg + RA pressure. Pulmonic Valve A trace of pulmonary regurgitation. Normal PV structure and function by limited views and Doppler. AortaAortic root size (SInus of Valsalva diameter) is normal . PericardiumNo significant pericardial effusion is visualized based on limited views. IVC/SVC/PA/PV/PleuralThe inferior vena cava is not visualized. The estimated RA pressure by IVC dynamics indeterminate . [facility] Circ SupportA HeartMate II left ventricular assist device (LVAD) is present. Chambers/Structures Left Atrium LA Volume: 90.52 ml LA Area: 28.12 cm^ 2 LA Vol. Index: 39 ml/m^2 Left Ventricle LVIDd: 5.04 cm LV Septum Diastolic: 0.97 cm LV PW Diastolic: 0.9 cm LVEDV Nguyen's:234.13 ml LVEDVI: 100 ml/m^2 Right Ventricle TAPSE: 1.46 cm Aorta Ao Root S of Oksana.: 3.07 cm Doppler/Quantitative Measurements Mitral Valve MV Jamila. 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 Clinical History HGB 13.0 HCT 40.9 % AICD, CAD, CKD, CHF, DM, Hep. C, HTN, ICMP s/p LVAD HM II (03/27/2016) Height: 71.5 inches Weight: 112.94 kg (249 lbs) BSA: 2.33 m^2 BMI: 34.24 kg/m^2 HR: 62 bpm BP: 104/71 mmHg Summary LVAD Device: HM II . Baseline Speed 9000 RPM. Other speeds assessed: 8600, 9400 RPM 9000 RPM (baseline) -LVIDd 5.0 cm; AoV opens ; AoV opening duration 152 ms; none AR; trace MR; mild TR; est RVSP=25 mmHg+ RAP; RVOT VTI=13.2 cm; Mitral E jamila=0.92 m/s; Ventricular septal position: indet. Inflow Cannula . Peak Systolic Velocity: 0.87 m/sec and Peak Diastolic Velocity: 0.4 m/sec. Outflow Graft . Peak Systolic Velocity: 1.04 m/sec and Peak Diastolic Velocity: 0.48 m/sec. 8600 RPM -LVIDd 5.3 cm; AoV opens ; AoV opening duration 168 ms; none AR; trace MR; mild TR; est RVSP=25 mmHg+ RAP; RVOT VTI=15.6 cm; Mitral E jamila=indet m/s; Ventricular septal position: indet. 9400 RPM -LVIDd 4.6 cm; AoV opens ; AoV opening duration 143 ms; none AR; mild MR; mild TR; est RVSP=25 mmHg+ RAP; RVOT VTI=12.3 cm; Mitral E jamila=indet m/s; Ventricular septal position: indet. Previous Study In comparison with the prior exam on 03-29-16 there are no significant changes. Signature Findings Technical Quality: Technically adequate exam. Left Ventricle No evidence of LV hypertrophy. The left ventricle is chamber size (by vol index) is severely enlarged (male - LVED vol >100ml/m2). All of the LV segments are severely hypokinetic . Global LV systolic function severely reduced . Left Atrium LA size is mildly enlarged (35-41 ml/m2) . Right Ventricle RV pacing wire is visualized . RV chamber size is mildly enlarged . Global RV systolic function is low normal . Right Atrium RA pacing wire is visualized . RA cavity size is normal . RA catheter is visualized . Aortic Valve Mild AoV cusp thickening. Mitral Valve Mild MV leaflet thickening. Tricuspid Valve Mild tricuspid regurgitation. Estimated peak systolic PA pressure is 25 mmHg + RA pressure. Pulmonic Valve A trace of pulmonary regurgitation. Normal PV structure and function by limited views and Doppler. Aorta Aortic root size (SInus of Valsalva diameter) is normal . Pericardium No significant pericardial effusion is visualized based on limited views. IVC/SVC/PA/PV/Pleural The inferior vena cava is not visualized. The estimated RA pressure by IVC dynamics indeterminate . [facility] Circ Support A HeartMate II left ventricular assist device (LVAD) is present. Chambers/Structures Left Atrium LA Volume: 90.52 ml LA Area: 28.12 cm^2 LA Vol. Index: 39 ml/m^2 Left Ventricle LVIDd: 5.04 cm LV Septum Diastolic: 0.97 cm LV PW Diastolic: 0.9 cm LVEDV Nguyen's:234.13 ml LVEDVI: 100 ml/m^2 Right Ventricle TAPSE: 1.46 cm Aorta Ao Root S of Oksana.: 3.07 cm Doppler/Quantitative Measurements Mitral Valve MV Jamila. Peak: Tissue Doppler E' Lateral Velocity: 0.09 m/s Tricuspid Valve TR Velocity: 2.45 m/s TR Gradient: 24.01 mmHg CBC with platelet count + automated diff (03/01/2018 9:22 AM)Only the most recent of10 resultswithin the time period is included. Component Value Ref Range WBC 6.7 3.5 - 10.5 K/L RBC 4.91 4.63 - 6.08 M/L Hemoglobin 13.8 13.7 - 17.5 GM/DL Hematocrit 41.3 40.1 - 51.0 % MCV 84.1 79.0 - 92.2 fL MCH 28.1 25.7 - 32.2 pg MCHC 33.4 32.3 - 36.5 GM/DL RDW 15.3 (H) 11.6 - 14.4 % Platelets 166 150 - 450 K/CU MM MPV 10.1 9.4 - 12.4 fL nRBC 0 0 - 0 /100 WBC % Neutros 62 % % Lymphs 28 % % Monos 7 % % Eos 2 % % Baso 1 % # Neutros 4.12 1.78 - 5.38 K/L # Lymphs 1.91 1.32 - 3.57 K/L # Monos 0.46 0.30 - 0.82 K/L # Eos 0.13 0.04 - 0.54 K/L # Baso 0.07 0.01 - 0.08 K/L Immature Granulocytes-Relative 0 0 - 1 % Specimen Performing Laboratory Blood [address] [address] CBC with platelet count + automated diff (03/01/2018 9:22 AM)Only the most recent of19 resultswithin the time period is included. Specimen Performing Laboratory Blood [facility] ([facility]) Narrative The following orders were created for panel order CBC with platelet count + automated diff. Procedure Abnormality Status --------- ------ CBC with platelet count ...[[id number]]AbnormalFinal result Please view results for these tests on the individual orders. Plasma free hemoglobin (03/01/2018 9:22 AM)Only the most recent of8 resultswithin the time period is included. Component Value Ref Range Hgb, Plasma 80.0 (H) 0.0 - 30.0 mg/dl Specimen Performing Laboratory Blood [address] [address] Iron, TIBC, % sat. (without ferritin) (03/01/2018 9:21 AM)Only the most recent of2 resultswithin the time period is included. Component Value Ref Range Iron 90 40 - 160 ug/dL TIBC 310 250 - 450 ug/dL Iron % Saturation 29 20 - 55 % Specimen Performing Laboratory Blood [address] [address] Prothrombin time/INR (03/01/2018 9:21 AM)Only the most recent of56 resultswithin the time period is included. Component Value Ref Range Protime 24.3 (H) 11.7 - 14.7 seconds INR 2.2 <=5.9 Specimen Performing Laboratory Blood [address] [address] Narrative RECOMMENDED COUMADIN/WARFARIN INR THERAPY RANGES STANDARD DOSE: 2.0 - 3.0 Includes: PROPHYLAXIS for venous thrombosis, systemic embolization; TREATMENT for venous thrombosis and/or pulmonary embolus. HIGH RISK: Target INR is 2.5-3.5 for patients with mechanical heart valves. Transferrin (03/01/2018 9:21 AM)Only the most recent of2 resultswithin the time period is included. Component Value Ref Range Transferrin 248 174 - 382 mg/dL Specimen Performing Laboratory Blood [address] [address] Prealbumin (03/01/2018 9:21 AM)Only the most recent of8 resultswithin the time period is included. Component Value Ref Range Prealbumin 18 14 - 45 mg/dL Specimen Performing Laboratory Blood [address] [address] Magnesium (03/01/2018 9:21 AM)Only the most recent of8 resultswithin the time period is included. Component Value Ref Range Magnesium 1.8 1.6 - 2.6 mg/dL Specimen Performing Laboratory Blood [address] [address] Lactate dehydrogenase (LDH) (03/01/2018 9:21 AM)Only the most recent of10 resultswithin the time period is included. Component Value Ref Range LDH 296 (H) 125 - 220 U/L Specimen Performing Laboratory Blood [address] [address] Ferritin (03/01/2018 9:21 AM)Only the most recent of3 resultswithin the time period is included. Component Value Ref Range Ferritin 236 5 - 275 ng/mL Specimen Performing Laboratory Blood [address] [address] Hepatic function panel (03/01/2018 9:21 AM)Only the most recent of10 resultswithin the time period is included. Component Value Ref Range Protein, Total 7.5 6.0 - 8.3 gm/dL Albumin 3.7 3.5 - 5.0 g/dL Total Bilirubin 0.6 0.2 - 1.2 mg/dL Bilirubin, Direct 0.3 0.1 - 0.5 mg/dL Alkaline Phosphatase 142 40 - 150 U/L AST 25 5 - 34 U/L ALT 46 6 - 55 U/L Specimen Performing Laboratory Blood [address] [address] Basic Metabolic Panel (03/01/2018 9:21 AM)Only the most recent of19 resultswithin the time period is included. Component Value Ref Range Sodium 140 136 - 145 meq/L Potassium 3.8 3.5 - 5.1 meq/L Chloride 102 98 - 107 meq/L CO2 28 22 - 29 meq/L BUN 26 (H) 7 - 21 mg/dL Creatinine 1.12 0.57 - 1.25 mg/dL Glucose 137 (H) 70 - 105 mg/dL Calcium 8.9 8.4 - 10.2 mg/dL EGFR 68Comment: ESTIMATED GFR IS NOT ACCURATE mL/min/1.73 sq m CREATININE CLEARANCE IN PREDICTING GLOMERULAR FILTRATION RATE. ESTIMATED GFR IS NOT APPLICABLE FOR DIALYSIS PATIENTS. Specimen Performing Laboratory Blood [address] [address] ARRYTHMIA IMPLANT REPORT - SCAN (02/28/2018 12:20 PM)Only the most recent of3 resultswithin the time period is included.RHYTHM STRIP - SCAN (12/06/2017 11:34 AM)Only the most recent of2 resultswithin the time period is included.POC- Glucose meter (12/01/2017 12:02 PM)Only the most recent of37 resultswithin the time period is included. Component Value Ref Range POC-Glucose Meter 270 (H)Comment: TESTED AT [address] 70 - 110 mg/[place] [address] Specimen Performing Laboratory Blood [address] [address] aPTT (12/01/2017 5:44 AM)Only the most recent of20 resultswithin the time period is included. Component Value Ref Range PTT 75.9 (H) 22.5 - 36.0 seconds Specimen Performing Laboratory Blood - Arm, Right [address] [address] CBC (Hemogram only) (11/30/2017 5:58 AM)Only the most recent of7 resultswithin the time period is included. Component Value Ref Range WBC 7.1 3.5 - 10.5 K/L RBC 4.15 (L) 4.63 - 6.08 M/L Hemoglobin 10.1 (L) 13.7 - 17.5 GM/DL Hematocrit 33.8 (L) 40.1 - 51.0 % MCV 81.4 79.0 - 92.2 fL MCH 24.3 (L) 25.7 - 32.2 pg MCHC 29.9 (L) 32.3 - 36.5 GM/DL RDW 18.7 (H) 11.6 - 14.4 % Platelets 146 (L) 150 - 450 K/CU MM MPV 10.3 9.4 - 12.4 fL nRBC 0 0 - 0 /100 WBC Specimen Performing Laboratory Blood [address] [address] Hemoglobin A1c (11/26/2017 4:45 PM)Only the most recent of3 resultswithin the time period is included. Component Value Ref Range Hemoglobin A1C 7.0 (H) 4.3 - 6.1 % Specimen Performing Laboratory Blood - Arm, Left [address] [address] Lipase (11/26/2017 6:10 AM)Only the most recent of3 resultswithin the time period is included. Component Value Ref Range Lipase 31 8 - 78 U/L Specimen Performing Laboratory Blood - Arm, Left [address] [address] Hemoglobin and hematocrit (11/25/2017 3:35 PM)Only the most recent of5 resultswithin the time period is included. Component Value Ref Range Hemoglobin 9.6 (L) 13.7 - 17.5 GM/DL Hematocrit 30.6 (L) 40.1 - 51.0 % Specimen Performing Laboratory Blood - Arm, Left [facility] [address] XR abdomen / KUB 1 view (11/25/2017 3:27 PM) Specimen Performing Laboratory [facility] Narrative FINAL REPORT ONE VIEW ABDOMEN HISTORY: Epigastric pain COMPARISON: 01/18/2017 FINDINGS: 2 supine AP images of the abdomen were obtained. No dilated loops of large or small intestine are visualized. There is gas in nondilated stomach and large intestine. No abnormal calcifications are visualized. Left ventricular assist device is partially imaged. Imaged lung bases appear clear. No skeletal abnormalities are identified. IMPRESSION: Nonobstructive bowel gas pattern. Signed: Vicky Brewster MD Report Verified Date/Time:11/25/2017 15:59:39 Reading Location: [address] Ortho Consult Reading Room Procedure Note Interface, External Ris In - 11/25/2017 4:27 PM TANK CAR RECONDITIONER FINAL REPORT ONE VIEW ABDOMEN HISTORY: Epigastric pain COMPARISON: 01/18/2017 FINDINGS: 2 supine AP images of the abdomen were obtained. No dilated loops of large or small intestine are visualized. There is gas in nondilated stomach and large intestine. No abnormal calcifications are visualized. Left ventricular assist device is partially imaged. Imaged lung bases appear clear. No skeletal abnormalities are identified. IMPRESSION: Nonobstructive bowel gas pattern. Signed: Vicky Brewster MD Report Verified Date/Time: 11/25/2017 15:59:39 Reading Location: [address] Ortho Consult Reading Room SFUSION SERVICE REPORT - SCAN (11/23/2017 5:42 PM)Only the most recent of3 resultswithin the time period is included.Prepare Leuko-Red RBC (11/22/2017 11: 54 PM) Component Value Ref Range CROSSMATCH COMPATIBLE Unit ABO A Pos UNIT NUMBER [id number] Status TRANSFUSED Blood Bank Product RED BLOOD CELLS PRODUCT CODE S0919D44 CROSSMATCH COMPATIBLE Unit ABO A Pos UNIT NUMBER [id number] Status READY Blood Bank Product RED BLOOD CELLS PRODUCT CODE H3407J25 Specimen Performing Laboratory Other [employer] [place] REPORT OF PROCEDURE - ENDOSCOPY URL (11/22/2017 5:15 PM)Tissue Exam (2017 5:10 PM) Component Value Ref Range Case Report Surgical Pathology Report Case: [id number] Authorizing Provider:Gabriel WellingtoneCollected: 11/22/2017 1710 MD Nicky Ordering Location: [facility] CV Recovery Room 2 Received: 11/23/2017 0806 Pathologist: Antonette Jean MD Specimen:Stomach,Antrum, polyp DIAGNOSIS PART A GASTRIC ANTRUM POLYP, BIOPSY: GASTRIC MUCOSA WITH HYPERPLASTIC FEATURES AND FOCAL INTESTINAL METAPLASIA. NEGATIVE FOR DYSPLASIA OR INVASIVE CARCINOMA. WARTHIN STARRY STAIN FOR HELICOBACTER IS NEGATIVE. Signing Pathologist Direct Phone Line: [phone] CPT Code(s) 33213, 42768 CLINICAL HISTORY Gastrointestinal hemorrhage SPECIMEN SOURCE Stomach antrum polyp GROSS DESCRIPTION The specimen is received in a formalin-filled container labeled with the patient's information and labeled "stomach antrum polyp" and consists of a 0.1 cm fragment of esteban soft tissue submitted in A1. CG/ew SPECIAL STUDIES The following special studies were performed on this case and the interpretation is incorporated in the diagnostic report above: BLOCK A1- WARTHIN STARRY Specimen Performing Laboratory Tissue - Stomach, [place] [address] Transfuse Leuko-Red RBC (11/21/2017 6:30 AM)Only the most recent of2 resultswithin the time period is included.Type and screen, automated ([facility] and CECs only) (11/21/2017 4:42 AM)Only the most recent of3 resultswithin the time period is included. Component Value Ref Range ABO/RH AUTOMATED (BEAKER) A POSITIVE Ab Scrn NEGATIVE Specimen [place] [address] ED ECG Interpretation (11/21/2017 2:54 AM) Narrative Sandeep Brown MD 11/21/20172:54 AM ECG/EKG Interpretation Date/Time: 11/21/2017 1:07 AM Performed by: SANDEEP BROWN Authorized by: SANDEEP BROWN The ECG was interpreted by ED physician. This ECG was not compared with previous ECG(s).The ECG is interpreted as paced. Rate is normal rate. Pacin% capture observed. Clinical Impression: non-specific ECGECG reviewed and does not meet STEMI criteria. Patient tolerance: Patient tolerated the procedure well with no immediate complications Critical Care (11/21/2017 2:54 AM) Narrative Sandeep Brown MD 11/21/20172:54 AM Critical Care Performed by: SANDEEP BROWN Authorized by: SANDEEP BROWN Total critical care time: 40 minutes Critical care time was exclusive of separately billable procedures and treating other patients. Critical care was necessary to treat or prevent imminent or life-threatening deterioration of the following conditions: circulatory failure and cardiac failure. Critical care was time spent personally by me on the following activities: review of old charts, pulse oximetry, ordering and review of laboratory studies, obtaining history from patient or surrogate, evaluation of patient's response to treatment, discussions with consultants, examination of patient, re-evaluation of patient's condition, ordering and review of radiographic studies and ordering and performing treatments and interventions. XR chest 1 view portable / bedside (11/21/2017 2:07 AM) Specimen Performing Laboratory [facility] Narrative FINAL REPORT History: Epistaxis, rectal bleeding, abdominal pain. Comparison: 08/30/2017 Findings: A single view of the chest is submitted. The cardiac silhouette is within normal limits for size. The patient has undergone previous LVAD and left subclavian ICD placement The lung volumes are low. There is no focal consolidation, pneumothorax, large pleural effusion or evidence of overt pulmonary edema. Cervical fusion hardware is in place. There is no acute bony abnormality. Impression: No acute abnormality. Signed: Thang Rodriguez MD Report Verified Date/Time:11/21/2017 02:11:19 Reading Location: [address] Reading Room Procedure Note Interface, External Ris In - 11/21/2017 2:13 AM TANK CAR RECONDITIONER FINAL REPORT History: Epistaxis, rectal bleeding, abdominal pain. Comparison: 08/30/2017 Findings: A single view of the chest is submitted. The cardiac silhouette is within normal limits for size. The patient has undergone previous LVAD and left subclavian ICD placement The lung volumes are low. There is no focal consolidation, pneumothorax, large pleural effusion or evidence of overt pulmonary edema. Cervical fusion hardware is in place. There is no acute bony abnormality. Impression: No acute abnormality. Signed: Thang Rodriguez MD Report Verified Date/Time: 11/21/2017 02:11:19 Reading Location: [address] Reading Room Urinalysis w/ Microscopic (11/21/2017 12:05 AM)Only the most recent of2 resultswithin the time period is included. Component Value Ref Range Color, UA Yellow Clarity, UA Clear Specific [place], UA 1.015 1.001 - 1.035 pH, UA 5.5 5.0 - 8.0 Protein, UA 20 mg/dL (A) Negative Glucose, UA Negative Negative Ketones, UA Negative Negative Bilirubin, UA Negative Negative Blood, UA Small (A) Negative Nitrite, UA Negative Negative Leukocytes, UA Negative Negative Urobilinogen, UA 0.2 0.2 - 1.0 mg/dL RBC, UA 4 /HPF WBC, UA 1 /HPF Squam Epithel, UA <1 /HPF Hyaline Casts, UA 1 /LPF Specimen Source Urine, Voided Specimen Performing Laboratory Urine - Urine, Voided [address] [address] PT/aPTT (11/21/2017 12:01 AM)Only the most recent of2 resultswithin the time period is included. Component Value Ref Range Protime 25.4 (H) 11.7 - 14.7 seconds INR 2.3 <=5.9 PTT 36.2 (H) 22.5 - 36.0 seconds Specimen Performing Laboratory Blood - Line, Venous [address] [address] Narrative RECOMMENDED COUMADIN/WARFARIN INR THERAPY RANGES STANDARD DOSE: 2.0 - 3.0 Includes: PROPHYLAXIS for venous thrombosis, systemic embolization; TREATMENT for venous thrombosis and/or pulmonary embolus. HIGH RISK: Target INR is 2.5-3.5 for patients with mechanical heart valves. Troponin I (not available at [facility]) (11/21/2017 12:01 AM) Component Value Ref Range Troponin I <0.01 0.00 - 0.03 ng/mL Specimen Performing Laboratory Blood - Line, Venous [facility] [address] [place] [address] Narrative Troponin I (TnI) levels must be interpreted in the context of the presenting symptoms and the clinical findings. Elevated TnI levels indicate myocardial damage, but are not specific for ischemic heart disease. Elevated TnI levels are seen in patients with other cardiac conditions (including myocarditis and congestive heart failure), and slight TnI elevations occur in patients with other conditions, including sepsis, renal failure, acidosis, acute neurological disease, and persistent tachyarrhythmia. B-type natriuretic peptide (11/21/2017 12:01 AM)Only the most recent of2 resultswithin the time period is included. Component Value Ref Range BNP 339 (H) 0 - 100 pg/mL Specimen Performing Laboratory Blood - Line, [address] [address] Creatine Kinase (CK), Total and MB (not available at [facility]) (2017 12:01 AM) Component Value Ref Range Total CK 59 29 - 200 U/L CK-MB 1.0 0.0 - 6.6 ng/mL MB Relative Index 1.7 % Specimen Performing Laboratory Blood - Line, Venous [address] [address] Narrative CK-MB Reference Range: <6.7Normal 6.7-10.0Borderline >10.0 Abnormal Amylase (11/21/2017 12:01 AM)Only the most recent of2 resultswithin the time period is included. Component Value Ref Range Amylase 28 25 - 125 U/L Specimen Performing Laboratory Blood - Line, [address] [address] ECG 12 lead (11/20/2017 11:50 PM) Specimen Performing Laboratory [email or web address] Narrative Ventricular Rate 63 BPM Atrial Rate 63 BPM P-R Interval 124 ms QRS Duration 178 ms Q-T Interval 490 ms QTC Calculation(Bazett) 501 ms P [place] -2 degrees R [place] 251 degrees T [place] 87 degrees Poor data quality Sinus rhythm with electronic ventricular pacing Abnormal ECG When compared with ECG of 13-JAN-2017 13:53, No significant changes Confirmed by MD ESTHER, PINA ([id number]) on 11/21/2017 6:07:04 AM Procedure Note Interface, External Ris In - 11/21/2017 6:07 AM TANK CAR RECONDITIONER Ventricular Rate 63 BPM Atrial Rate 63 BPM P-R Interval 124 ms QRS Duration 178 ms Q-T Interval 490 ms QTC Calculation(Bazett) 501 ms P Phoenix -2 degrees R [place] 251 degrees T [place] 87 degrees Poor data quality Sinus rhythm with electronic ventricular pacing Abnormal ECG When compared with ECG of 13-JAN-2017 13:53, No significant changes Confirmed by MD SANTANA YOCHAI ([id number]) on 11/21/2017 6:07:[address] chest without IV contrast (10/05/2017 12:30 PM) Specimen Performing Laboratory [employer] RIS Narrative FINAL REPORT HISTORY: Lung nodule, <1cm COMPARISON : 01/17/2017 Technique : Multiple axial images of the chest were performed from the lung apices to the lung bases without the administration of IV contrast. Images were presented in both the lung and soft tissue windows. This exam was performed according to our departmental dose optimization program which includes automated exposure control, adjustment of the mA and/or kV according to patient size and/or use of iterative reconstructive technique. Comment: The thyroid gland is within normal limits. A left-sided multilead ICD is in place. In the posterior aspect of the trachea, there is a nodular density measuring up to 1.0 cm. This may represent some aspirated/mucus material. However, the findings can be correlated with direct visualization to exclude the possibility of a mass. There is no hilar, mediastinal or axillary lymphadenopathy. An LVAD is in place. The patient does have cardiomegaly. The patient is status post sternotomy. The visualized portions of the spleen, adrenal glands, pancreas, and kidneys are within normal limits. There is cirrhotic morphology of the liver. There is cholelithiasis. The osseous structures as well as the subcutaneous soft tissues are without any abnormalities. In the left lower lobe, there is a stable 3 mm pulmonary nodule. In the right lower lobe, there is a stable 5 mm pulmonary nodule. There is no pleural effusion, pneumothorax or infiltrate. Impression: 1. Total of 2 stable subcentimeter right basilar pulmonary nodules unchanged dating as far back as a CT of 01/27/2016. Continued follow-up CT in 6 months is advised. 2. New nodular density in the posterior trachea, possibly representing aspirated/mucus material. Please see above. Signed: Ric Bass MD Report Verified Date/Time:10/05/2017 14:33:30 Reading Location: [facility] Diagnostic Imaging Reading Room - [place] [address] Procedure Note Interface, External Ris In - 10/05/2017 2:35 PM TANK CAR RECONDITIONER FINAL REPORT HISTORY: Lung nodule, <1cm COMPARISON : 01/17/2017 Technique : Multiple axial images of the chest were performed from the lung apices to the lung bases without the administration of IV contrast. Images were presented in both the lung and soft tissue windows. This exam was performed according to our departmental dose optimization program which includes automated exposure control, adjustment of the mA and/or kV according to patient size and/or use of iterative reconstructive technique. Comment: The thyroid gland is within normal limits. A left-sided multilead ICD is in place. In the posterior aspect of the trachea, there is a nodular density measuring up to 1.0 cm. This may represent some aspirated/mucus material. However, the findings can be correlated with direct visualization to exclude the possibility of a mass. There is no hilar, mediastinal or axillary lymphadenopathy. An LVAD is in place. The patient does have cardiomegaly. The patient is status post sternotomy. The visualized portions of the spleen, adrenal glands, pancreas, and kidneys are within normal limits. There is cirrhotic morphology of the liver. There is cholelithiasis. The osseous structures as well as the subcutaneous soft tissues are without any abnormalities. In the left lower lobe, there is a stable 3 mm pulmonary nodule. In the right lower lobe, there is a stable 5 mm pulmonary nodule. There is no pleural effusion, pneumothorax or infiltrate. Impression: 1. Total of 2 stable subcentimeter right basilar pulmonary nodules unchanged dating as far back as a CT of 01/27/2016. Continued follow-up CT in 6 months is advised. 2. New nodular density in the posterior trachea, possibly representing aspirated/mucus material. Please see above. Signed: Ric Bass MD Report Verified Date/Time: 10/05/2017 14:33:30 Reading Location: [facility] Diagnostic Imaging Reading Room - [place] [address] Hepatitis C RNA, Quantitative (09/27/2017 4:04 PM) Component Value Ref Range HCV PCR, Quantitative HCV RNA not detected HCV RNA not detected Specimen Performing Laboratory Blood [facility] [address] [address] Narrative This test uses a Real-Time Polymerase Chain Reaction (RT-PCR) methodology and was performed using [employer] Ampliprep/BHASKAR TaqMan HCV test kit version 2.0 ( [employer]). Reportable range for this assay is 15 - 100,000,000 IU per mL (1.18 - 8.00 Log IU/mL). POCT INR (09/13/2017 2:01 PM)Only the most recent of3 resultswithin the time period is included. Component Value Ref Range INR (MANUAL) 2.7 Specimen Performing Laboratory Blood PULMONARY FUNCTION - SCAN (09/07/2017 11:41 AM)Creatinine clearance (09/03/2017 10:29 AM) Component Value Ref Range Creatinine 1.35 (H) 0.70 - 1.33 mg/dL Comment: For patients >49 years of age, the reference limit for Creatinine is approximately 13% higher for people identified as -[place]. eGFR If NonAfricn Am 59 (L) > OR=60 mL/min/1.73m2 eGFR If Africn Am 68 > OR=60 mL/min/1.73m2 Creatinine,24 Hr Urin 1.54 0.63 - 2.50 g/24 h Body Surface Area 2.32 Creatinine Clearance 59 (L) 85 - 125 mL/min HEIGHT FEET 6 ft HEIGHT INCHES 0 in Weight 245 Specimen Performing Laboratory Urine [facility] [address] [place] [address] Narrative FASTING:NO URINE VOLUME: 3500/24 CT Brain without IV Contrast (08/31/2017 9:33 AM) Specimen Performing Laboratory [employer] Narrative FINAL REPORT CT head without contrast INDICATION: LVAD, systolic congestive heart failure, dilated cardiomyopathy, heart transplant evaluation TECHNIQUE: Axial noncontrast CT images through the head were obtained. This exam was performed according to our departmental dose optimization program which includes automated exposure control, adjustment of the mA and/or kV according to patient size and/or use of iterative reconstruction technique. COMPARISON: CT head 04/11/2016 FINDINGS: There is no acute intracranial hemorrhage or mass effect. Minimal microvascular ischemic changes are similar to the prior study and chronic appearing. Please note that CT is insensitive for early or small infarcts. Generalized volume loss and vascular calcifications are noted. There is no hydrocephalus or midline shift. Left mastoidectomy changes are stable. The imaged sinuses and right mastoid air cells are well aerated. The globes remain mildly proptotic. The calvarium is intact. IMPRESSION: No acute intracranial hemorrhage or mass effect. Chronic appearing microvascular and involutional changes. Stable left mastoidectomy changes. Signed: Blaire Marsh MD Report Verified Date/Time:08/31/2017 09:58:49 Reading Location: [address] Neuro Reading Room Procedure Note Interface, External Ris In - 08/31/2017 9:58 PM CDT FINAL REPORT CT head without contrast INDICATION: LVAD, systolic congestive heart failure, dilated cardiomyopathy, heart transplant evaluation TECHNIQUE: Axial noncontrast CT images through the head were obtained. This exam was performed according to our departmental dose optimization program which includes automated exposure control, adjustment of the mA and/or kV according to patient size and/or use of iterative reconstruction technique. COMPARISON: CT head 04/11/2016 FINDINGS: There is no acute intracranial hemorrhage or mass effect. Minimal microvascular ischemic changes are similar to the prior study and chronic appearing. Please note that CT is insensitive for early or small infarcts. Generalized volume loss and vascular calcifications are noted. There is no hydrocephalus or midline shift. Left mastoidectomy changes are stable. The imaged sinuses and right mastoid air cells are well aerated. The globes remain mildly proptotic. The calvarium is intact. IMPRESSION: No acute intracranial hemorrhage or mass effect. Chronic appearing microvascular and involutional changes. Stable left mastoidectomy changes. Signed: Blaire Marsh MD Report Verified Date/Time: 08/31/2017 09:58:49 Reading Location: [address] Neuro Reading Room , BONE DENSITY STUDY (08/31/2017 9:29 AM) Specimen Performing Laboratory [facility] Narrative FINAL REPORT Bone mineral density study 08/31/2017. CLINICAL INDICATION: Heart transplant evaluation. COMPARISON: 02/03/2016 FINDINGS: Evaluation of the left and right femoral necks and lumbar spine was performed utilizing a [employer] bone densitometer. Data reflect young adult matched T-scores and age-matched Z scores. IMPRESSION: The left femoral neck bone mineral density is 1.211gm/cm2, the T-score is 1.1, and the Z-score is 1.4. The right femoral neck total bone mineral density is 1.085gm/cm2, the T-score is 0.1, and the Z-score is 0.4. The lumbar spine total bone mineral density is 1.446gm/cm2, the T-score is 1.9, and the Z-score is 1.4. Compared to the prior exam, the bone mineral density of the lumbar spine demonstrates a 1% decrease.The bone density of the left femoral neck demonstrates a 1.4% increase.The bone mineral density of the right femoral neck demonstrates a 4.9% decrease. Signed: Vicky Velazquez MD Report Verified Date/Time:08/31/2017 11:20:44 Reading Location: [address] Reading Room Procedure Note Interface, External Ris In - 08/31/2017 11:23 AM CDT FINAL REPORT Bone mineral density study 08/31/2017. CLINICAL INDICATION: Heart transplant evaluation. COMPARISON: 02/03/2016 FINDINGS: Evaluation of the left and right femoral necks and lumbar spine was performed utilizing a Online [employer] Advance bone densitometer. Data reflect young adult matched T-scores and age-matched Z scores. IMPRESSION: The left femoral neck bone mineral density is 1.211gm/cm2, the T-score is 1.1, and the Z-score is 1.4. The right femoral neck total bone mineral density is 1.085gm/cm2, the T-score is 0.1, and the Z-score is 0.4. The lumbar spine total bone mineral density is 1.446gm/cm2, the T-score is 1.9, and the Z-score is 1.4. Compared to the prior exam, the bone mineral density of the lumbar spine demonstrates a 1% decrease. The bone density of the left femoral neck demonstrates a 1.4% increase. The bone mineral density of the right femoral neck demonstrates a 4.9% decrease. Signed: Vicky Velazquez MD Report Verified Date/Time: 08/31/2017 11:20:44 Reading Location: [address] Reading Room Spirometry wo bronchodilator (08/31/2017 8:34 AM) Narrative Sumit Ray, CONSERVATION OF RESOURCES COMMISSIONER, INSPECTOR [employer]ER [employer]ODUCTS 08/31/20178:34 AM [facility] PFT CHARTING REPORT Infection Control/Hand Hygiene procedures followed throughout the encounter with patient: Yes Patient Identification Method: Patient name verified on armband, and Medical record on armband, Is the order complete?: Yes Account ID#: [id number] Patient Name: Jose Lizama Birthdate: 1960 Age: 57 y.o.Sex: male Admission Date: 08/31/2017Patient Status: Outpatient Reasons/Symptom for having the Test?: the need of pre-op transplant evaluation and other diagnosis/symptoms as noted Type of study/treatment ordered by physician: Single Breath DLCO and Spirometry Lab Results Component Value Date HGB 11.5 (L) 08/30/2017 Ranges: Adult Male 13 - 16.8 g/dlAdult Female 12 - 15 g/dl 6 Minute Walk (read only) 04/20/2017 06/04/2017 08/03/2017 Pulse 65 63 76 SpO2 100 99 97 Study Date: 08/31/17Study Time: 805 ASSESSMENT History & Physical Mode of Arrival: Ambulatory Pulse: 66Resp: 18SPO2: 97 %on ra Pain Assessment Pain:None TESTING/THERAPEUTICS Medications ordered or required for procedure: N/A PT EDUCATION/INSTRUCTIONS Barriers to learning: No known barriers to learning. Learning need identified: Yes, Patient/Family/Guradian was informed of the ordered study by the physician Barriers to performing study or treatment: Patient has no known disability to perform the study or treatment. DISCHARGE The study was completed in accordance with the physician's order and patient released from the lab without adverse outcome. DLCO (single breath diffusion) (08/31/2017 8:34 AM) Narrative Sumit aRy, CONSERVATION OF RESOURCES COMMISSIONER, INSPECTOR [employer]CTS 08/31/20178:34 AM [facility] PFT CHARTING REPORT Infection Control/Hand Hygiene procedures followed throughout the encounter with patient: Yes Patient Identification Method: Patient name verified on armband, and Medical record on armband, Is the order complete?: Yes Account ID#: [id number] Patient Name: Jose Lizama Birthdate: 1960 Age: 57 y.o.Sex: male Admission Date: 08/31/2017Patient Status: Outpatient Reasons/Symptom for having the Test?: the need of pre-op transplant evaluation and other diagnosis/symptoms as noted Type of study/treatment ordered by physician: Single Breath DLCO and Spirometry Lab Results Component Value Date HGB 11.5 (L) 08/30/2017 Ranges: Adult Male 13 - 16.8 g/dlAdult Female 12 - 15 g/dl 6 Minute Walk (read only) 04/20/2017 06/04/2017 08/03/2017 Pulse 65 63 76 SpO2 100 99 97 Study Date: 08/31/17Study Time: 805 ASSESSMENT History & Physical Mode of Arrival: Ambulatory Pulse: 66Resp: 18SPO2: 97 %on ra Pain Assessment Pain:None TESTING/THERAPEUTICS Medications ordered or required for procedure: N/A PT EDUCATION/INSTRUCTIONS Barriers to learning: No known barriers to learning. Learning need identified: Yes, Patient/Family/Guradian was informed of the ordered study by the physician Barriers to performing study or treatment: Patient has no known disability to perform the study or treatment. DISCHARGE The study was completed in accordance with the physician's order and patient released from the lab without adverse outcome. PERIPHERAL VASCULAR REPORT - SCAN (08/30/2017 6:50 PM)Only the most recent of2 resultswithin the time period is included.Arterial doppler legs bilateral (08/30 3:16 PM) Component Value Ref Range Ejection Fraction Specimen Performing Laboratory [facility] ECHO HEARTLAB MKCKESSON CPACS Impressions Right Impression 1. The posterior tibial and dorsalis pedis arteries are patent with Doppler waveforms consistent with an LVAD. 2. The PT pressure is 98 mmHg with an GIOVANY of 0.91 and the DP pressure is 99 mmHg with an GIOVANY of 0.92, within normal range. 3. The great toe pressure is 77 mmHg with a normal TBI of 0.71. 4. The digits have adequate flow by PPG waveforms. Left Impression 1. The posterior tibial and dorsalis pedis arteries are patent with Doppler waveforms consistent with an LVAD. 2. The PT pressure is 101 mmHg with an GIOVANY of 0.94 and the DP pressure is 98 mmHg with an GIOVANY of 0.91, within normal range. 3. The great toe pressure is 85 mmHg with a normal TBI of 0.79. 4. The digits have adequate flow by PPG waveforms. Conclusions Summary Arterial pressures and Doppler waveforms were performed bilaterally. Adequate Doppler waveforms were obtained. Doppler waveforms were consistent with an LVAD. The right and left GIOVANY's were within normal range. The toe pressure and TBI's were within normal range bilaterally. The digits had adequate flow by PPG waveforms bilaterally. Signature Velocities are measured in cm/s ; Diameters are measured in cm Narrative PV [facility] - Lower Extremity Arterial Procedure Demographics Patient Name JOSE LIZAMA Date of Study 08/30/2017 ANTONETTE [id number] Visit Number [id number] Male Accession Number [id number] of 1960 [facility] Room Number Physician SonographerHeaLesly Vaughn Jose Physician , RPMORA Procedure Type of Study: Extremities Arteries: Lower Extremity Arterial Procedure, ARTERIAL (GIOVANY'S W/DOPPLER) ONLY. Indications for Study:Heart transplant evaluation . Patient Status:Routine. Study Location:Vascular Lab. Technical Quality:Adequate visualization. Risk Factors History of Disease + +----+ + !Diagnosis !Date!Comments ! + +----+ + !History/Risk!!DM, HTN, CKD, HLD, HCV, CAD, CHF, Ischemic CMP, S/P ! !Factors:!!LVAD(HM 2) 03/27/16, AVM, AICD, Previous smoker ! + +----+ + Procedure Note Interface, External Ris In - 08/30/2017 5:59 PM CDT [facility] - Lower Extremity Arterial Procedure Demographics Patient Name JOSE LIZAMA Date of Study 08/30/2017 ANTONETTE Age 57 Visit Number [id number] Gender Male Accession Number [id number] Date of 1960 Referring Tish [facility] Room Number Physician Territory Account Executive Aubree Austin Interpreting Lesly Corley T Physician , RPVI Procedure Type of Study: Extremities Arteries: Lower Extremity Arterial Procedure, ARTERIAL (GIOVANY'S W/DOPPLER) ONLY. Indications for Study:Heart transplant evaluation . Patient Status:Routine. Study Location:Vascular Lab. Technical Quality:Adequate visualization. Risk Factors History of Disease + +----+ + !Diagnosis !Date!Comments ! + +----+ + !History/Risk ! !DM, HTN, CKD, HLD, HCV, CAD, CHF, Ischemic CMP, S/P ! !Factors: ! !LVAD(HM 2) 03/27/16, AVM, AICD, Previous smoker ! + +----+ + Impressions Right Impression 1. The posterior tibial and dorsalis pedis arteries are patent with Doppler waveforms consistent with an LVAD. 2. The PT pressure is 98 mmHg with an GIOVANY of 0.91 and the DP pressure is 99 mmHg with an GIOVANY of 0.92, within normal range. 3. The great toe pressure is 77 mmHg with a normal TBI of 0.71. 4. The digits have adequate flow by PPG waveforms. Left Impression 1. The posterior tibial and dorsalis pedis arteries are patent with Doppler waveforms consistent with an LVAD. 2. The PT pressure is 101 mmHg with an GIOVANY of 0.94 and the DP pressure is 98 mmHg with an GIOVANY of 0.91, within normal range. 3. The great toe pressure is 85 mmHg with a normal TBI of 0.79. 4. The digits have adequate flow by PPG waveforms. Conclusions Summary Arterial pressures and Doppler waveforms were performed bilaterally. Adequate Doppler waveforms were obtained. Doppler waveforms were consistent with an LVAD. The right and left GIOVANY's were within normal range. The toe pressure and TBI's were within normal range bilaterally. The digits had adequate flow by PPG waveforms bilaterally. Signature Velocities are measured in cm/s ; Diameters are measured in cm Carotid Doppler Bilateral (08/30/2017 3:16 PM) Component Value Ref Range Ejection Fraction Specimen Performing Laboratory [facility] ECHO HEARTLAB [facility] Impressions Right Impression 1. There is <50% diameter reduction (approximately 49% by 2-D measurement) in the internal carotid artery with a peak velocity of 62/36 cm/sec and heterogeneous plaque. 2. The external carotid artery is within normal limits. 3. The common carotid artery is within normal limits. 4. The vertebral artery flow is antegrade and normal. 5. The subclavian artery is within normal limits where visualized. Left Impression 1. There is <50% diameter reduction (approximately 28% by 2-D measurement) in the internal carotid artery with a peak velocity of 68/38 cm/sec and heterogeneous plaque. 2. The external carotid artery is within normal limits. 3. The common carotid artery is within normal limits. 4. The vertebral artery flow is antegrade and normal. 5. The subclavian artery is within normal limits where visualized. Conclusions Summary Carotid duplex scanning and color flow imaging were performed bilaterally. The arteries were adequately visualized. The bilateral internal carotid arteries had <50% hemodynamically insignificant stenosis (approximately 49% by 2-D measurement on the right, approximately 28% by 2-D measurement on the left) with heterogeneous plaque. The vertebral artery flow was antegrade and normal bilaterally. The subclavian arteries were patent with normal flow bilaterally where visualized. The waveforms were pulsatile with underlying continuous flow consistent with LVAD support. There has been no significant change since the previous examination done on 02/03/2016. Signature Velocities are measured in cm/s ; Diameters are measured in cm Carotid Right Measurements + +----+----+-----+ + + + !Location !PSV !EDV !Angle!%Stenosis 2D!%Stenosis Doppler! Tortuosity ! + +----+----+-----+ + + + !Prox CCA !84.4!45.1!60 !! ! ! + +----+----+-----+ + + + !Dist CCA !71.5!34.6!60 !! ! ! + +----+----+-----+ + + + !Prox ICA !62.5!35.8!60 !49% !<50% ! ! + +----+----+-----+ + + + !Dist ICA !83.8!55.1!60 !! ! ! + +----+----+-----+ + + + !Prox ECA !72.7!31.1!60 !! ! ! + +----+----+-----+ + + + !Vertebral!38.9!24.2!60 !! ! ! + +----+----+-----+ + + + !Prox Subclavian!60.1!13!60 !! ! ! + +----+----+-----+ + + + - There is antegrade vertebral flow noted on the right side. - Additional Measurements:ICAPSV/CCAPSV 1.17.ICAEDV/CCAEDV 1.22. Carotid Left Measurements + +----+----+-----+ + + + !Location !PSV !EDV !Angle!%Stenosis 2D!%Stenosis Doppler! Tortuosity ! + +----+----+-----+ + + + !Prox CCA !88.5!43.4!60 !! ! ! + +----+----+-----+ + + + !Dist CCA !93.2!46.3!60 !! ! ! + +----+----+-----+ + + + !Prox ICA !68!38.1!60 !28% !<50% ! ! + +----+----+-----+ + + + !Dist ICA !70.9!41!60 !! ! ! + +----+----+-----+ + + + !Prox ECA !72.1!35.2!60 !! ! ! + +----+----+-----+ + + + !Vertebral!58.9!32.6!60 !! ! ! + +----+----+-----+ + + + !Prox Subclavian!66.8!25.1!60 !! ! ! + +----+----+-----+ + + + - There is antegrade vertebral flow noted on the left side. - Additional Measurements:ICAPSV/CCAPSV 0.76.ICAEDV/CCAEDV 0.94. Narrative PV LAB - Carotid Duplex Study Demographics Patient Name JOSE LIZAMA Date of Study 08/30/2017 ANTONETTE [id number] Visit Number [id number] Male Accession Number [id number] of 1960 [facility] Room Number [facility] Physician Mojgan Sutherland. TERA Watts Physician , ROSEMARIE Procedure Type of Study: Cerebral: Carotid, CAROTID DOPPLER, BILATERAL. Indications for Study:Heart transplant evaluation . Patient Status:Routine. Study Location:Vascular Lab. Technical Quality:Adequate visualization. Risk Factors History of Disease + +----+ + !Diagnosis !Date!Comments ! + +----+ + !History/Risk!!DM, HTN, CKD, HLD, HCV, CAD, CHF, Ischemic CMP, S/P ! !Factors:!!LVAD(HM 2) 03/27/16, AVM, AICD, Previous smoker ! + +----+ + Procedure Note Interface, External Ris In - 08/30/2017 6:00 PM CDT PV LAB - Carotid Duplex Study Demographics Patient Name JOSE LIZAMA Date of Study 08/30/2017 ANTONETTE Age 57 Visit Number [id number] Gender Male Accession Number [id number] Date of 1960 Referring Tish Hauser Room Number [facility] Physician Territory Account Executive Tay Starks Interpreting TERA Corley Physician , ROSEMARIE Procedure Type of Study: Cerebral: Carotid, CAROTID DOPPLER, BILATERAL. Indications for Study:Heart transplant evaluation . Patient Status:Routine. Study Location:Vascular Lab. Technical Quality:Adequate visualization. Risk Factors History of Disease + +----+ + !Diagnosis !Date!Comments ! + +----+ + !History/Risk ! !DM, HTN, CKD, HLD, HCV, CAD, CHF, Ischemic CMP, S/P ! !Factors: ! !LVAD(HM 2) 03/27/16, AVM, AICD, Previous smoker ! + +----+ + Impressions Right Impression 1. There is <50% diameter reduction (approximately 49% by 2-D measurement) in the internal carotid artery with a peak velocity of 62/36 cm/sec and heterogeneous plaque. 2. The external carotid artery is within normal limits. 3. The common carotid artery is within normal limits. 4. The vertebral artery flow is antegrade and normal. 5. The subclavian artery is within normal limits where visualized. Left Impression 1. There is <50% diameter reduction (approximately 28% by 2-D measurement) in the internal carotid artery with a peak velocity of 68/38 cm/sec and heterogeneous plaque. 2. The external carotid artery is within normal limits. 3. The common carotid artery is within normal limits. 4. The vertebral artery flow is antegrade and normal. 5. The subclavian artery is within normal limits where visualized. Conclusions Summary Carotid duplex scanning and color flow imaging were performed bilaterally. The arteries were adequately visualized. The bilateral internal carotid arteries had <50% hemodynamically insignificant stenosis (approximately 49% by 2-D measurement on the right, approximately 28% by 2-D measurement on the left) with heterogeneous plaque. The vertebral artery flow was antegrade and normal bilaterally. The subclavian arteries were patent with normal flow bilaterally where visualized. The waveforms were pulsatile with underlying continuous flow consistent with LVAD support. There has been no significant change since the previous examination done on 02/03/2016. Signature Velocities are measured in cm/s ; Diameters are measured in cm Carotid Right Measurements + +----+----+-----+ + + + !Location !PSV !EDV !Angle!%Stenosis 2D!%Stenosis Doppler!Tortuosity ! + +----+----+-----+ + + + !Prox CCA !84.4!45.1!60 ! ! ! ! + +----+----+-----+ + + + !Dist CCA !71.5!34.6!60 ! ! ! ! + +----+----+-----+ + + + !Prox ICA !62.5!35.8!60 !49% !<50% ! ! + +----+----+-----+ + + + !Dist ICA !83.8!55.1!60 ! ! ! ! + +----+----+-----+ + + + !Prox ECA !72.7!31.1!60 ! ! ! ! + +----+----+-----+ + + + !Vertebral !38.9!24.2!60 ! ! ! ! + +----+----+-----+ + + + !Prox Subclavian!60.1!13 !60 ! ! ! ! + +----+----+-----+ + + + - There is antegrade vertebral flow noted on the right side. - Additional Measurements:ICAPSV/CCAPSV 1.17.ICAEDV/CCAEDV 1.22. Carotid Left Measurements + +----+----+-----+ + + + !Location !PSV !EDV !Angle!%Stenosis 2D!%Stenosis Doppler!Tortuosity ! + +----+----+-----+ + + + !Prox CCA !88.5!43.4!60 ! ! ! ! + +----+----+-----+ + + + !Dist CCA !93.2!46.3!60 ! ! ! ! + +----+----+-----+ + + + !Prox ICA !68 !38.1!60 !28% !<50% ! ! + +----+----+-----+ + + + !Dist ICA !70.9!41 !60 ! ! ! ! + +----+----+-----+ + + + !Prox ECA !72.1!35.2!60 ! ! ! ! + +----+----+-----+ + + + !Vertebral !58.9!32.6!60 ! ! ! ! + +----+----+-----+ + + + !Prox Subclavian!66.8!25.1!60 ! ! ! ! + +----+----+-----+ + + + - There is antegrade vertebral flow noted on the left side. - Additional Measurements:ICAPSV/CCAPSV 0.76.ICAEDV/CCAEDV 0.94. XR Chest 2 views (08/30/2017 2:44 PM) Specimen Performing Laboratory GE RIS Narrative FINAL REPORT Chest two views compared to January 17 Discussion: Left chest pacemaker and left ventricular assist device are noted. Lungs clear. Heart size normal. No effusion or pneumothorax. Signed: Maximus Miranda MD Report Verified Date/Time:08/30/2017 15:22:59 Reading Location: [facility] [id number] Consult Reading Room Procedure Note Interface, External Ris In - 08/30/2017 3:25 PM CDT FINAL REPORT Chest two views compared to January 17 Discussion: Left chest pacemaker and left ventricular assist device are noted. Lungs clear. Heart size normal. No effusion or pneumothorax. Signed: Maximus Miranda MD Report Verified Date/Time: 08/30/2017 15:22:59 Reading Location: [facility] [id number] Consult Reading Room Renal Complete (08/30/2017 2:00 PM) Specimen Performing Laboratory GE RIS Narrative FINAL REPORT Renal ultrasound Comparison: January 2016 Clinical History:Heart transplant evaluation Technique: Sonographic evaluation of the kidneys was performed.48 images were submitted for interpretation, using a five MHz transducer. Right kidney: The kidney measures 11.1 cm in length.The cortical echogenicity is within normal limits.The cortex measures 1.7 cm.There is no evidence of a focal mass.There is no evidence of hydronephrosis. There is no evidence of a shadowing stone.There is no evidence of a cyst.There is no evidence of a perinephric fluid collection.Flow was visualized to the right kidney. Left kidney: The kidney measures 11.7 cm in length.The cortical echogenicity is within normal limits.The cortex measures 1.7 cm.There is no evidence of a focal mass.There is no evidence of hydronephrosis. There is no evidence of a shadowing stone.There is no evidence of a cyst.There is no evidence of a perinephric fluid collection.Flow was visualized to the left kidney. Survey images of the bladder demonstrate no abnormality. The patient did not have an urge to void. A post void residual was not performed. Incidentally noted the prostate measures 4.6 x 3.1 x 3.4 cm. Impression: The kidneys are normal in size and shape without evidence of hydronephrosis. Signed: Mona Solitario MD Report Verified Date/Time:08/30/2017 15:04:53 Reading Location: [address] Ultrasound Reading Room Procedure Note Interface, External Ris In - 08/30/2017 3:07 PM CDT FINAL REPORT Renal ultrasound Comparison: January 2016 Clinical History: Heart transplant evaluation Technique: Sonographic evaluation of the kidneys was performed. 48 images were submitted for interpretation, using a five MHz transducer. Right kidney: The kidney measures 11.1 cm in length. The cortical echogenicity is within normal limits. The cortex measures 1.7 cm. There is no evidence of a focal mass. There is no evidence of hydronephrosis. There is no evidence of a shadowing stone. There is no evidence of a cyst. There is no evidence of a perinephric fluid collection. Flow was visualized to the right kidney. Left kidney: The kidney measures 11.7 cm in length. The cortical echogenicity is within normal limits. The cortex measures 1.7 cm. There is no evidence of a focal mass. There is no evidence of hydronephrosis. There is no evidence of a shadowing stone. There is no evidence of a cyst. There is no evidence of a perinephric fluid collection. Flow was visualized to the left kidney. Survey images of the bladder demonstrate no abnormality. The patient did not have an urge to void. A post void residual was not performed. Incidentally noted the prostate measures 4.6 x 3.1 x 3.4 cm. Impression: The kidneys are normal in size and shape without evidence of hydronephrosis. Signed: Mona Solitario MD Report Verified Date/Time: 08/30/2017 15:04:53 Reading Location: [address] Ultrasound Reading Room Flow PRA Class I and II (08/30/2017 12:00 PM) Component Value Ref Range Date of Serum 689596 Serum# [id number] Flow PRA Class I and II See Scanned Report Specimen Performing Laboratory Blood [facility] IMMUNE EVALUATION LAB [facility] Josh, MS:BCM [address] [place] [address] AB Specificity Class I (08/30/2017 12:00 PM) Component Value Ref Range Date of Serum 107880 Serum# [id number] AB Specificity Class I See Scanned Report Specimen Performing Laboratory Blood [facility] IMMUNE EVALUATION LAB [facility] Josh, MS:BCM [address] [place] [address] Blood typing, automated (08/30/2017 9:47 AM) Component Value Ref Range ABO/RH AUTOMATED (BEAKER) A POSITIVE Specimen Performing Laboratory Blood [address] [address] T Spot TB (08/30/2017 9:23 AM) Component Value Ref Range T-Spot TB Negative Neg Ctrl Spot Count 0 Panel A Spot 0 Panel B Spot [address] >20 Scan Result Specimen Performing Laboratory Blood [facility] [address] [facility], [address] [place] [address] Drug screen, urine, comprehensive (08/30/2017 9:23 AM) Specimen Performing Laboratory Urine [facility] [address] [place] [id number] Reticulocytes (08/30/2017 9:22 AM) Component Value Ref Range % Retic 2.4 (H) 0.5 - 1.8 % Specimen Performing Laboratory Blood [address] [address] Direct AHG (CASSANDRA)/Direct Anamaira (08/30/2017 9:22 AM) Component Value Ref Range Direct AHG-IGG NEGATIVE Direct AHG-C3B, C3D NEGATVIE Specimen Performing Laboratory Blood [address] [address] Varicella zoster antibody, IgG (08/30/2017 9:22 AM) Component Value Ref Range Varicella IgG 6.1 Al Specimen Performing Laboratory [address] [address] Narrative VARICELLA ZOSTER RESULT INTERPRETATIONS: <=0.8 AlNonreactive:Presumed non-immune to VZV 0.9-1.0 AlEquivocal >=1.1 AlReactive:Presumed immune to VZV Uric acid (08/30/2017 9:22 AM) Component Value Ref Range Uric Acid 8.1 (H) 2.6 - 7.2 mg/dL Specimen Performing Laboratory Blood [address] [address] Phosphorus (08/30/2017 9:22 AM) Component Value Ref Range Phosphorus 2.9 2.3 - 4.7 mg/dL Specimen Performing Laboratory Blood [address] [address] Gamma Glutamyl Transferase (GGT) (08/30/2017 9:22 AM) Component Value Ref Range GGT 347 (H) 9 - 64 U/L Specimen Performing Laboratory Blood [address] [address] Lipid panel (FASTING) (08/30/2017 9:22 AM)Only the most recent of2 resultswithin the time period is included. Component Value Ref Range Triglycerides 128 mg/dL Cholesterol 147 mg/dL HDL 35 mg/dL LDL Calculated 86 mg/dL Specimen Performing Laboratory Blood [address] [address] Narrative Triglyceride Reference Range: Low Risk <150 [id number] High Risk 200-499 Very High Risk>=500 Cholesterol Reference Range: Low Risk <200 [id number] High Risk>240 HDL Cholesterol Reference Range: Low Risk >=60 High Risk <40 LDL Cholesterol Reference Range: Optimal<100 Near [id number] [id number] Udbp607-213 Very High >=190 Hepatitis A antibody, IgG (08/30/2017 9:21 AM) Component Value Ref Range Hep A IgG Reactive (A) Nonreactive Specimen Performing Laboratory [address] [address] HIV-1 Antigen with HIV-1/2 Antibody (08/30/2017 9:21 AM) Component Value Ref Range HIV-1 Antigen with HIV 1&2 Antibody Nonreactive Nonreactive Specimen Performing Laboratory [address] [address] Hepatitis C antibody (08/30/2017 9:21 AM) Component Value Ref Range Hepatitis C Ab Reactive (A) Nonreactive Specimen Performing Laboratory Blood [address] [address] CMV antibody, IgM (08/30/2017 9:21 AM) Component Value Ref Range CMV IgM Negative Specimen Performing Laboratory [address] [address] Hepatitis A antibody, IgM (08/30/2017 9:21 AM) Component Value Ref Range Hep A IgM Nonreactive Nonreactive Specimen Performing Laboratory [address] [address] [address] Toxoplasma gondii antibody, IgM (08/30/2017 9:21 AM) Component Value Ref Range Toxoplasma gondii IgM Negative Specimen Performing Laboratory [address] [address] Herpes virus, IgM (08/30/2017 9:21 AM) Component Value Ref Range Herpes Virus IGM Negative Specimen Performing Laboratory [address] [address] Hepatitis B core antibody, IgM (08/30/2017 9:21 AM) Component Value Ref Range Hep B C IgM Nonreactive Nonreactive Specimen Performing Laboratory [address] [address] EBV-VCA antibody, IgM (08/30/2017 9:21 AM) Component Value Ref Range EBV VCA IgM Negative Specimen Performing Laboratory [address] [address] EBV-VCA antibody, IgG (08/30/2017 9:21 AM) Component Value Ref Range EBV VCA IgG Positive Specimen Performing Laboratory [address] [address] Hepatitis B core antibody, total (08/30/2017 9:21 AM) Component Value Ref Range Hep B Core Total Ab Nonreactive Nonreactive Specimen Performing Laboratory [address] [address] Hepatitis B e antigen (08/30/2017 9:21 AM) Component Value Ref Range Hep Be Ag (Antigen) NONREACTIVEComment: REFERENCE RANGES: NONREACTIVE Specimen Performing Laboratory Blood [facility] [address] [place] [address] Narrative Performing Lab *[facility] [address] [place] [address] Dae Corado MD Vitamin D, 25-Hydroxy (08/30/2017 9:21 AM) Component Value Ref Range Vitamin D 25-Hydroxy 10.7 6.6 - 49.9 ng/mL Specimen Performing Laboratory [address] [address] Narrative Effective 08/29/2017: Reference Range Change New: 6.6-49.9 ng/mL Previous: 13.0-47.8 ng/mL Recommended Vitamin D Target Range: 30.0-40.0 ng/mL Herpes virus, IgG (08/30/2017 9:21 AM) Component Value Ref Range Herpes Virus IGG Positive Comment: HSV 1 IGG=POS HSV 2 IGG=NEG Specimen Performing Laboratory [address] [address] Toxoplasma gondii antibody, IgG (08/30/2017 9:21 AM) Component Value Ref Range Toxoplasma gondii IgG Negative Specimen Performing Laboratory [address] [address] RPR (08/30/2017 9:21 AM) Component Value Ref Range RPR Nonreactive Nonreactive Specimen Performing Laboratory [address] [address] Hepatitis B surface antigen (08/30/2017 9:21 AM) Component Value Ref Range hepatitis B Surface Ag Nonreactive Nonreactive Specimen Performing Laboratory [address] [address] CMV antibody, IgG (08/30/2017 9:21 AM) Component Value Ref Range CMV IgG Positive Specimen Performing Laboratory [address] [address] Immunofixation electrophoresis (ANGELIKA) (08/30/2017 9:21 AM) Component Value Ref Range IgG 1527 540 - 1822 mg/dL IgA 402 63 - 484 mg/dL IgM 98 22 - 293 mg/dL Serum ANGELIKA Identification No monoclonal proteins detected. Polyclonal distribution of immunoglobulins. Pathologist: Gloria Schmidt MD (electronic signature) Specimen Performing Laboratory [address] [address] NOLA (08/30/2017 9:21 AM) Component Value Ref Range NOLA Negative Negative Specimen Performing Laboratory [address] [address] TSH (08/30/2017 9:21 AM)Only the most recent of2 resultswithin the time period is included. Component Value Ref Range TSH 1.68 0.35 - 4.94 uIU/mL Specimen Performing Laboratory Blood [address] [address] T4, free (08/30/2017 9:21 AM)Only the most recent of2 resultswithin the time period is included. Component Value Ref Range Free T4 1.08 0.70 - 1.48 ng/dL Specimen Performing Laboratory Blood [address] [address] Protein electrophoresis, serum (08/30/2017 9:21 AM) Component Value Ref Range Albumin Fraction 3.4 (L) 3.5 - 5.5 g/dL Alpha 1 Fraction 0.3 0.2 - 0.4 g/dL Alpha 2 Fraction 0.7 0.5 - 0.9 g/dL Beta Fraction 1.4 (H) 0.6 - 1.1 g/dL Gamma Globulin Fraction 1.5 0.7 - 1.7 g/dL Interpretation All fractions present in expected distribution with minor nonspecific changes. No monoclonal bands detected. Pathologist: Gloria Schmidt MD (electronic signature) Protein, Total 7.3 6.0 - 8.3 gm/dL Specimen Performing Laboratory Blood [address] [address] PSA (08/30/2017 9:21 AM) Component Value Ref Range PSA 0.5 0.0 - 4.0 ng/mL Specimen Performing Laboratory [address] [address] Iron, serum (08/30/2017 9:21 AM) Component Value Ref Range Iron 50 40 - 160 ug/dL Specimen Performing Laboratory [address] [address] Drug screen, urine, transplant (08/03/2017 2:36 PM)Only the most recent of3 resultswithin the time period is included. Specimen Performing Laboratory Urine [facility] [address] [place] [address] HGA1C (07/06/2017 10:00 AM) Component Value Ref Range Hemoglobin A1C 6.5 (A)Comment: HIGH 4.0 - 6.0 % after 03/05/2017 Advance Directives Patient has advance directives. For more information, please contact:[address] [phone]
--- OUTSIDE RECORDS SUMMARY | 2018-03-06 11:56 | XMS REPORT ---
:1960 [facility] [address] [place] [address] Care Team Providers Name Role Phone Bettie WOOD Unavailable Unavailable LUCERO BROWN Unavailable Unavailable NO NESS Unavailable Unavailable HECTOR BULL Unavailable Unavailable DEION WOOD Unavailable Unavailable BERONICA CARMONA Unavailable Unavailable KRISTI SPARKS Unavailable Unavailable Problems This patient has no known problems. Allergies, Adverse Reactions, Alerts This patient has no known allergies or adverse reactions. Medications This patient has no known medications. Results Test Description Test Time Test Comments Text Results Atomic Results Result Comments FERRITIN 2018-03-01 10:56:00 Test Item Value Reference Range Comments FERRITIN (BEAKER) (test mkjy=885) 236 ng/mL 5-275 [id number] 10:48:00 Test Item Value Reference Range Comments MAGNESIUM (BEAKER) (test kqso=658) 1.8 mg/dL 1.6-2.6 BASIC METABOLIC [id number] 10:48:00 Test Item Value Reference Range Comments SODIUM (BEAKER) (test 140 meq/L 136-145 icvy=492) POTASSIUM (BEAKER) (test 3.8 meq/L 3.5-5.1 fnkj=250) CHLORIDE (BEAKER) (test 102 meq/L 98-107 rggx=094) CO2 (BEAKER) (test 28 meq/L 22-29 bopc=618) BLOOD UREA NITROGEN 26 mg/dL 7-21 (BEAKER) (test xqto=360) CREATININE (BEAKER) (test 1.12 mg/dL 0.57-1.25 imbm=021) GLUCOSE RANDOM (BEAKER) 137 mg/dL 70-105 (test hsos=104) CALCIUM (BEAKER) (test 8.9 mg/dL 8.4-10.2 ygoy=797) EGFR (BEAKER) (test 68 mL/min/1.73 sq m ESTIMATED GFR IS NOT dkhj=2668) ACCURATE CREATININE CLEARANCE IN PREDICTING GLOMERULAR FILTRATION RATE. ESTIMATED GFR IS NOT APPLICABLE FOR DIALYSIS PATIENTS. HEPATIC FUNCTION [id number] 10:48:00 Test Item Value Reference Range Comments TOTAL PROTEIN (BEAKER) (test hmtt=669) 7.5 gm/dL 6.0-8.3 ALBUMIN (BEAKER) (test exhl=1426) 3.7 g/dL 3.5-5.0 BILIRUBIN TOTAL (BEAKER) (test jvvb=369) 0.6 mg/dL 0.2-1.2 BILIRUBIN DIRECT (BEAKER) (test aceb=164) 0.3 mg/dL 0.1-0.5 ALKALINE PHOSPHATASE (BEAKER) (test wirn=026) 142 U/L 40-150 AST (SGOT) (BEAKER) (test zdyz=491) 25 U/L 5-34 ALT (SGPT) (BEAKER) (test dimk=316) 46 U/L 6-55 LACTATE DEHYDROGENASE (LDH)2018-03-01 10:48:00 Test Item Value Reference Range Comments LACTATE DEHYDROGENASE (BEAKER) (test euzo=127) 296 U/L 125-220 [id number] 10:34:00 Test Item Value Reference Range Comments TRANSFERRIN (BEAKER) (test mjsy=283) 248 mg/dL 174-382 [id number] 10:34:00 Test Item Value Reference Range Comments PREALBUMIN (BEAKER) (test kedp=832) 18 mg/dL 14-45 IRON, TIBC, % SAT. (WITHOUT FERRITIN)2018-03-01 10:34:00 Test Item Value Reference Range Comments IRON (BEAKER) (test xgqx=396) 90 ug/dL 40-160 TOTAL IRON BINDING CAPACITY (BEAKER) (test 310 ug/dL 250-450 tflt=340) IRON % SATURATION (2) (BEAKER) (test uskj=2249) 29 % 20-55 PLASMA FREE [id number] 10:28:00 Test Item Value Reference Range Comments HEMOGLOBIN PLASMA (BEAKER) (test wlfx=3561) 80.0 mg/dl 0.0-30.0 PROTHROMBIN [id number] 10:22:00 Test Item Value Reference Range Comments PROTIME (BEAKER) (test eyhy=994) 24.3 seconds 11.7-14.7 INR (BEAKER) (test yhxj=928) 2.2 <=5.9 RECOMMENDED COUMADIN/WARFARIN INR THERAPY RANGESSTANDARD DOSE: 2.0 - 3.0 Includes: PROPHYLAXIS forvenous thrombosis, systemic embolization; TREATMENT for venous thrombosis and/or pulmonary embolus.HIGH RISK: Target INR is 2.5-3.5 for patients with mechanical heart valves.CBC W/PLT COUNT & AUTO [id number] 10:20:00 Test Item Value Reference Range Comments WHITE BLOOD CELL COUNT (BEAKER) (test qqfb=740) 6.7 K/ L 3.5-10.5 RED BLOOD CELL COUNT (BEAKER) (test jhyg=154) 4.91 M/ L 4.63-6.08 HEMOGLOBIN (BEAKER) (test noyh=775) 13.8 GM/DL 13.7-17.5 HEMATOCRIT (BEAKER) (test ajqx=951) 41.3 % 40.1-51.0 MEAN CORPUSCULAR VOLUME (BEAKER) (test zwux=695) 84.1 fL 79.0-92.2 MEAN CORPUSCULAR HEMOGLOBIN (BEAKER) (test 28.1 pg 25.7-32.2 nvqq=955) MEAN CORPUSCULAR HEMOGLOBIN CONC (BEAKER) (test 33.4 GM/DL 32.3-36.5 szye=241) RED CELL DISTRIBUTION WIDTH (BEAKER) (test 15.3 % 11.6-14.4 uqch=371) PLATELET COUNT (BEAKER) (test pmlo=639) 166 K/CU MM 150-450 MEAN PLATELET VOLUME (BEAKER) (test nzrd=086) 10.1 fL 9.4-12.4 NUCLEATED RED BLOOD CELLS (BEAKER) (test 0 /100 WBC 0-0 kczr=080) NEUTROPHILS RELATIVE PERCENT (BEAKER) (test 62 % afku=227) LYMPHOCYTES RELATIVE PERCENT (BEAKER) (test 28 % aefj=048) MONOCYTES RELATIVE PERCENT (BEAKER) (test 7 % gebm=277) EOSINOPHILS RELATIVE PERCENT (BEAKER) (test 2 % xrij=470) BASOPHILS RELATIVE PERCENT (BEAKER) (test 1 % unlu=836) NEUTROPHILS ABSOLUTE COUNT (BEAKER) (test 4.12 K/ L 1.78-5.38 acgv=331) LYMPHOCYTES ABSOLUTE COUNT (BEAKER) (test 1.91 K/ L 1.32-3.57 scvc=504) MONOCYTES ABSOLUTE COUNT (BEAKER) (test 0.46 K/ L 0.30-0.82 hrzs=954) EOSINOPHILS ABSOLUTE COUNT (BEAKER) (test 0.13 K/ L 0.04-0.54 prkr=453) BASOPHILS ABSOLUTE COUNT (BEAKER) (test 0.07 K/ L 0.01-0.08 wmxq=536) IMMATURE GRANULOCYTES-RELATIVE PERCENT (BEAKER) 0 % 0-1 (test xiyr=6244) [id number] 10:33:00 Test Item Value Reference Range Comments MAGNESIUM (BEAKER) (test twzi=850) 1.7 mg/dL 1.6-2.6 BASIC METABOLIC [id number] 10:33:00 Test Item Value Reference Range Comments SODIUM (BEAKER) (test 139 meq/L 136-145 zmvh=140) POTASSIUM (BEAKER) (test 4.4 meq/L 3.5-5.1 nano=546) CHLORIDE (BEAKER) (test 98 meq/L 98-107 dexw=492) CO2 (BEAKER) (test 34 meq/L 22-29 npdi=797) BLOOD UREA NITROGEN 20 mg/dL 7-21 (BEAKER) (test anhq=517) CREATININE (BEAKER) (test 1.22 mg/dL 0.57-1.25 ghyu=728) GLUCOSE RANDOM (BEAKER) 267 mg/dL 70-105 (test rqgw=893) CALCIUM (BEAKER) (test 9.1 mg/dL 8.4-10.2 iwoq=106) EGFR (BEAKER) (test 62 mL/min/1.73 sq m ESTIMATED GFR IS NOT vpfo=5305) ACCURATE CREATININE CLEARANCE IN PREDICTING GLOMERULAR FILTRATION RATE. ESTIMATED GFR IS NOT APPLICABLE FOR DIALYSIS PATIENTS. HEPATIC FUNCTION [id number] 10:33:00 Test Item Value Reference Range Comments TOTAL PROTEIN (BEAKER) (test buuf=616) 7.6 gm/dL 6.0-8.3 ALBUMIN (BEAKER) (test bjzy=9213) 3.6 g/dL 3.5-5.0 BILIRUBIN TOTAL (BEAKER) (test qqbw=660) 0.8 mg/dL 0.2-1.2 BILIRUBIN DIRECT (BEAKER) (test dddy=977) 0.4 mg/dL 0.1-0.5 ALKALINE PHOSPHATASE (BEAKER) (test yaph=389) 142 U/L 40-150 AST (SGOT) (BEAKER) (test enjs=884) 29 U/L 5-34 ALT (SGPT) (BEAKER) (test xnca=928) 37 U/L 6-55 LACTATE DEHYDROGENASE (LDH)2018-01-11 10:33:00 Test Item Value Reference Range Comments LACTATE DEHYDROGENASE (BEAKER) (test pqkz=670) 308 U/L 125-220 [id number] 10:29:00 Test Item Value Reference Range Comments PREALBUMIN (BEAKER) (test didi=468) 16 mg/dL 14-45 PLASMA FREE [id number] 10:10:00 Test Item Value Reference Range Comments HEMOGLOBIN PLASMA (BEAKER) (test ckaz=7998) 30.0 mg/dl 0.0-30.0 PROTHROMBIN [id number] 09:45:00 Test Item Value Reference Range Comments PROTIME (BEAKER) (test vwya=961) 25.0 seconds 11.7-14.7 INR (BEAKER) (test xwnv=255) 2.3 <=5.9 RECOMMENDED COUMADIN/WARFARIN INR THERAPY RANGESSTANDARD DOSE: 2.0 - 3.0 Includes: PROPHYLAXIS forvenous thrombosis, systemic embolization; TREATMENT for venous thrombosis and/or pulmonary embolus.HIGH RISK: Target INR is 2.5-3.5 for patients with mechanical heart valves.CBC W/PLT COUNT & AUTO [id number] 09:35:00 Test Item Value Reference Range Comments WHITE BLOOD CELL COUNT (BEAKER) (test rjhx=246) 5.9 K/ L 3.5-10.5 RED BLOOD CELL COUNT (BEAKER) (test tttu=565) 4.80 M/ L 4.63-6.08 HEMOGLOBIN (BEAKER) (test zhgq=571) 13.0 GM/DL 13.7-17.5 HEMATOCRIT (BEAKER) (test czjz=770) 40.9 % 40.1-51.0 MEAN CORPUSCULAR VOLUME (BEAKER) (test medx=094) 85.2 fL 79.0-92.2 MEAN CORPUSCULAR HEMOGLOBIN (BEAKER) (test 27.1 pg 25.7-32.2 sfbu=285) MEAN CORPUSCULAR HEMOGLOBIN CONC (BEAKER) (test 31.8 GM/DL 32.3-36.5 dlah=435) RED CELL DISTRIBUTION WIDTH (BEAKER) (test 18.1 % 11.6-14.4 cypt=119) PLATELET COUNT (BEAKER) (test jgqp=398) 144 K/CU MM 150-450 MEAN PLATELET VOLUME (BEAKER) (test oeda=736) 10.1 fL 9.4-12.4 NUCLEATED RED BLOOD CELLS (BEAKER) (test 0 /100 WBC 0-0 kjwq=071) NEUTROPHILS RELATIVE PERCENT (BEAKER) (test 67 % olgf=424) LYMPHOCYTES RELATIVE PERCENT (BEAKER) (test 22 % dcrm=166) MONOCYTES RELATIVE PERCENT (BEAKER) (test 8 % fyhh=365) EOSINOPHILS RELATIVE PERCENT (BEAKER) (test 2 % wtjt=957) BASOPHILS RELATIVE PERCENT (BEAKER) (test 1 % iodd=262) NEUTROPHILS ABSOLUTE COUNT (BEAKER) (test 3.97 K/ L 1.78-5.38 qamz=697) LYMPHOCYTES ABSOLUTE COUNT (BEAKER) (test 1.32 K/ L 1.32-3.57 zwyx=070) MONOCYTES ABSOLUTE COUNT (BEAKER) (test 0.45 K/ L 0.30-0.82 oifj=199) EOSINOPHILS ABSOLUTE COUNT (BEAKER) (test 0.11 K/ L 0.04-0.54 nagw=354) BASOPHILS ABSOLUTE COUNT (BEAKER) (test 0.05 K/ L 0.01-0.08 khcb=092) IMMATURE GRANULOCYTES-RELATIVE PERCENT (BEAKER) 0 % 0-1 (test isdw=4783) LACTATE DEHYDROGENASE (LDH)2017-12-01 15:16:00 Test Item Value Reference Range Comments LACTATE DEHYDROGENASE (BEAKER) (test uirq=956) 269 U/L 125-220 POCT-GLUCOSE [id number] 12:13:00 Test Item Value Reference Range Comments POC-GLUCOSE METER (BEAKER) 270 mg/dL 70-110 TESTED AT [facility] [address] [facility] (test bzgk=4679) [facility] [address] POCT-GLUCOSE [id number] 08:13:00 Test Item Value Reference Range Comments POC-GLUCOSE METER (BEAKER) 188 mg/dL 70-110 TESTED AT [address] (test yihs=6065) [facility] [address] BASIC METABOLIC [id number] 07:20:00 Test Item Value Reference Range Comments SODIUM (BEAKER) (test 136 meq/L 136-145 fvev=900) POTASSIUM (BEAKER) (test 4.3 meq/L 3.5-5.1 nbau=096) CHLORIDE (BEAKER) (test 102 meq/L 98-107 cmac=302) CO2 (BEAKER) (test 28 meq/L 22-29 xood=718) BLOOD UREA NITROGEN 21 mg/dL 7-21 (BEAKER) (test fyrl=899) CREATININE (BEAKER) (test 0.99 mg/dL 0.57-1.25 xkvj=911) GLUCOSE RANDOM (BEAKER) 172 mg/dL 70-105 (test jqgr=938) CALCIUM (BEAKER) (test 8.7 mg/dL 8.4-10.2 qtww=113) EGFR (BEAKER) (test 78 mL/min/1.73 sq m ESTIMATED GFR IS NOT gsby=6321) ACCURATE CREATININE CLEARANCE IN PREDICTING GLOMERULAR FILTRATION RATE. ESTIMATED GFR IS NOT APPLICABLE FOR DIALYSIS PATIENTS. [id number] 06:57:00 Test Item Value Reference Range Comments PARTIAL THROMBOPLASTIN TIME (BEAKER) (test 75.9 seconds 22.5-36.0 oktx=697) PROTHROMBIN [id number] 06:56:00 Test Item Value Reference Range Comments PROTIME (BEAKER) (test wjjk=896) 20.9 seconds 11.7-14.7 INR (BEAKER) (test mgqq=079) 1.8 <=5.9 RECOMMENDED COUMADIN/WARFARIN INR THERAPY RANGESSTANDARD DOSE: 2.0 - 3.0 Includes: PROPHYLAXIS forvenous thrombosis, systemic embolization; TREATMENT for venous thrombosis and/or pulmonary embolus.HIGH RISK: Target INR is 2.5-3.5 for patients with mechanical heart valves.POCT-GLUCOSE [id number] 21:26:00 Test Item Value Reference Range Comments POC-GLUCOSE METER (BEAKER) 201 mg/dL 70-110 TESTED AT [place] [id number] [facility] (test wuxf=3065) [facility] [address] POCT-GLUCOSE [id number] 17:22:00 Test Item Value Reference Range Comments POC-GLUCOSE METER (BEAKER) 342 mg/dL 70-110 Notified KENZIE BARCLAY/TESTED AT [facility] (test ddci=4216) [address] [place] [address] POCT-GLUCOSE [id number] 09:17:00 Test Item Value Reference Range Comments POC-GLUCOSE METER (BEAKER) 280 mg/dL 70-110 TESTED AT [address] (test qqbu=9466) [facility] [address] BASIC METABOLIC [id number] 07:13:00 Test Item Value Reference Range Comments SODIUM (BEAKER) (test 139 meq/L 136-145 nbfl=214) POTASSIUM (BEAKER) (test 4.1 meq/L 3.5-5.1 kczg=091) CHLORIDE (BEAKER) (test 105 meq/L 98-107 mavn=469) CO2 (BEAKER) (test 27 meq/L 22-29 qltt=164) BLOOD UREA NITROGEN 22 mg/dL 7-21 (BEAKER) (test jnih=708) CREATININE (BEAKER) (test 1.01 mg/dL 0.57-1.25 jlqu=467) GLUCOSE RANDOM (BEAKER) 301 mg/dL 70-105 (test zfys=492) CALCIUM (BEAKER) (test 8.9 mg/dL 8.4-10.2 wjnh=283) EGFR (BEAKER) (test 77 mL/min/1.73 sq m ESTIMATED GFR IS NOT rncu=7039) ACCURATE CREATININE CLEARANCE IN PREDICTING GLOMERULAR FILTRATION RATE. ESTIMATED GFR IS NOT APPLICABLE FOR DIALYSIS PATIENTS. [id number] 06:59:00 Test Item Value Reference Range Comments PARTIAL THROMBOPLASTIN TIME (BEAKER) (test 70.0 seconds 22.5-36.0 ynnc=962) PROTHROMBIN [id number] 06:58:00 Test Item Value Reference Range Comments PROTIME (BEAKER) (test gzwb=818) 19.4 seconds 11.7-14.7 INR (BEAKER) (test vqln=263) 1.6 <=5.9 RECOMMENDED COUMADIN/WARFARIN INR THERAPY RANGESSTANDARD DOSE: 2.0 - 3.0 Includes: PROPHYLAXIS forvenous thrombosis, systemic embolization; TREATMENT for venous thrombosis and/or pulmonary embolus.HIGH RISK: Target INR is 2.5-3.5 for patients with mechanical heart valves.CBC (HEMOGRAM ONLY)2017-11-30 06:58:00 Test Item Value Reference Range Comments WHITE BLOOD CELL COUNT (BEAKER) (test nfhp=831) 7.1 K/ L 3.5-10.5 RED BLOOD CELL COUNT (BEAKER) (test gcml=413) 4.15 M/ L 4.63-6.08 HEMOGLOBIN (BEAKER) (test cnkj=400) 10.1 GM/DL 13.7-17.5 HEMATOCRIT (BEAKER) (test jezg=962) 33.8 % 40.1-51.0 MEAN CORPUSCULAR VOLUME (BEAKER) (test dxdi=032) 81.4 fL 79.0-92.2 MEAN CORPUSCULAR HEMOGLOBIN (BEAKER) (test 24.3 pg 25.7-32.2 mxdd=772) MEAN CORPUSCULAR HEMOGLOBIN CONC (BEAKER) (test 29.9 GM/DL 32.3-36.5 plph=105) RED CELL DISTRIBUTION WIDTH (BEAKER) (test 18.7 % 11.6-14.4 wlii=850) PLATELET COUNT (BEAKER) (test thxe=574) 146 K/CU MM 150-450 MEAN PLATELET VOLUME (BEAKER) (test vies=367) 10.3 fL 9.4-12.4 NUCLEATED RED BLOOD CELLS (BEAKER) (test 0 /100 WBC 0-0 wxsc=925) POCT-GLUCOSE [id number] 22:52:00 Test Item Value Reference Range Comments POC-GLUCOSE METER (BEAKER) 267 mg/dL 70-110 TESTED AT [address] (test bmot=5669) [facility] [address] POCT-GLUCOSE [id number] 17:28:00 Test Item Value Reference Range Comments POC-GLUCOSE METER (BEAKER) 236 mg/dL 70-110 TESTED AT [address] (test kzcq=6087) [facility] [address] POCT-GLUCOSE [id number] 12:11:00 Test Item Value Reference Range Comments POC-GLUCOSE METER (BEAKER) 365 mg/dL 70-110 Notified KENZIE BARCLAY/TESTED AT [facility] (test xsvp=7892) [address] [facility] [address] CBC (HEMOGRAM ONLY)2017-11-29 08:00:00 Test Item Value Reference Range Comments WHITE BLOOD CELL COUNT (BEAKER) (test xgzw=594) 7.3 K/ L 3.5-10.5 RED BLOOD CELL COUNT (BEAKER) (test iooi=321) 4.18 M/ L 4.63-6.08 HEMOGLOBIN (BEAKER) (test bgov=737) 9.9 GM/DL 13.7-17.5 HEMATOCRIT (BEAKER) (test jifs=547) 33.8 % 40.1-51.0 MEAN CORPUSCULAR VOLUME (BEAKER) (test oxzw=815) 80.9 fL 79.0-92.2 MEAN CORPUSCULAR HEMOGLOBIN (BEAKER) (test 23.7 pg 25.7-32.2 qrwo=569) MEAN CORPUSCULAR HEMOGLOBIN CONC (BEAKER) (test 29.3 GM/DL 32.3-36.5 zqct=651) RED CELL DISTRIBUTION WIDTH (BEAKER) (test 18.3 % 11.6-14.4 tkab=693) PLATELET COUNT (BEAKER) (test zire=802) 163 K/CU MM 150-450 MEAN PLATELET VOLUME (BEAKER) (test kvpq=191) 10.3 fL 9.4-12.4 NUCLEATED RED BLOOD CELLS (BEAKER) (test 1 /100 WBC 0-0 yibw=747) POCT-GLUCOSE [id number] 07:56:00 Test Item Value Reference Range Comments POC-GLUCOSE METER (BEAKER) 176 mg/dL 70-110 TESTED AT [place] [address] [address] (test coke=1948) [facility] [address] BASIC METABOLIC [id number] 05:49:00 Test Item Value Reference Range Comments SODIUM (BEAKER) (test 140 meq/L 136-145 dmnh=907) POTASSIUM (BEAKER) (test 4.1 meq/L 3.5-5.1 lzyh=108) CHLORIDE (BEAKER) (test 103 meq/L 98-107 ammx=636) CO2 (BEAKER) (test 29 meq/L 22-29 etko=481) BLOOD UREA NITROGEN 22 mg/dL 7-21 (BEAKER) (test eqdn=418) CREATININE (BEAKER) (test 1.12 mg/dL 0.57-1.25 vczb=057) GLUCOSE RANDOM (BEAKER) 202 mg/dL 70-105 (test ybwq=061) CALCIUM (BEAKER) (test 8.5 mg/dL 8.4-10.2 woxp=641) EGFR (BEAKER) (test 68 mL/min/1.73 sq m ESTIMATED GFR IS NOT zubz=5484) ACCURATE CREATININE CLEARANCE IN PREDICTING GLOMERULAR FILTRATION RATE. ESTIMATED GFR IS NOT APPLICABLE FOR DIALYSIS PATIENTS. [id number] 05:34:00 Test Item Value Reference Range Comments PARTIAL THROMBOPLASTIN TIME (BEAKER) (test 90.9 seconds 22.5-36.0 bron=007) PROTHROMBIN [id number] 05:32:00 Test Item Value Reference Range Comments PROTIME (BEAKER) (test jdwo=854) 19.8 seconds 11.7-14.7 INR (BEAKER) (test bpol=773) 1.7 <=5.9 RECOMMENDED COUMADIN/WARFARIN INR THERAPY RANGESSTANDARD DOSE: 2.0 - 3.0 Includes: PROPHYLAXIS forvenous thrombosis, systemic embolization; TREATMENT for venous thrombosis and/or pulmonary embolus.HIGH RISK: Target INR is 2.5-3.5 for patients with mechanical heart valves.POCT-GLUCOSE [id number] 21:35:00 Test Item Value Reference Range Comments POC-GLUCOSE METER (BEAKER) 218 mg/dL 70-110 TESTED AT [address] (test ugky=6700) [place] [id number] POCT-GLUCOSE [id number] 16:50:00 Test Item Value Reference Range Comments POC-GLUCOSE METER (BEAKER) 199 mg/dL 70-110 TESTED AT [address] (test kxxz=4949) [facility] [address] POCT-GLUCOSE [id number] 12:06:00 Test Item Value Reference Range Comments POC-GLUCOSE METER (BEAKER) 208 mg/dL 70-110 TESTED AT [address] (test keri=6234) [place] [id number] POCT-GLUCOSE [id number] 07:57:00 Test Item Value Reference Range Comments POC-GLUCOSE METER (BEAKER) 216 mg/dL 70-110 TESTED AT [address] (test avvl=3623) [facility] [address] CBC (HEMOGRAM ONLY)2017-11-28 06:50:00 Test Item Value Reference Range Comments WHITE BLOOD CELL COUNT (BEAKER) (test uzqs=498) 7.2 K/ L 3.5-10.5 RED BLOOD CELL COUNT (BEAKER) (test kgea=568) 3.98 M/ L 4.63-6.08 HEMOGLOBIN (BEAKER) (test lhha=750) 9.6 GM/DL 13.7-17.5 HEMATOCRIT (BEAKER) (test srpe=988) 31.5 % 40.1-51.0 MEAN CORPUSCULAR VOLUME (BEAKER) (test ijbt=095) 79.1 fL 79.0-92.2 MEAN CORPUSCULAR HEMOGLOBIN (BEAKER) (test 24.1 pg 25.7-32.2 zbhk=284) MEAN CORPUSCULAR HEMOGLOBIN CONC (BEAKER) (test 30.5 GM/DL 32.3-36.5 osur=991) RED CELL DISTRIBUTION WIDTH (BEAKER) (test 16.8 % 11.6-14.4 hljm=725) PLATELET COUNT (BEAKER) (test nmlz=201) 176 K/CU MM 150-450 MEAN PLATELET VOLUME (BEAKER) (test zhsz=779) 10.5 fL 9.4-12.4 NUCLEATED RED BLOOD CELLS (BEAKER) (test 1 /100 WBC 0-0 jugy=174) BASIC METABOLIC [id number] 05:44:00 Test Item Value Reference Range Comments SODIUM (BEAKER) (test 140 meq/L 136-145 vvac=617) POTASSIUM (BEAKER) (test 3.5 meq/L 3.5-5.1 ydfb=776) CHLORIDE (BEAKER) (test 103 meq/L 98-107 urym=114) CO2 (BEAKER) (test 28 meq/L 22-29 czqu=057) BLOOD UREA NITROGEN 20 mg/dL 7-21 (BEAKER) (test pnek=086) CREATININE (BEAKER) (test 0.98 mg/dL 0.57-1.25 szar=439) GLUCOSE RANDOM (BEAKER) 239 mg/dL 70-105 (test tsxk=630) CALCIUM (BEAKER) (test 8.2 mg/dL 8.4-10.2 gqea=821) EGFR (BEAKER) (test 79 mL/min/1.73 sq m ESTIMATED GFR IS NOT ocgp=8325) ACCURATE CREATININE CLEARANCE IN PREDICTING GLOMERULAR FILTRATION RATE. ESTIMATED GFR IS NOT APPLICABLE FOR DIALYSIS PATIENTS. [id number] 05:42:00 Test Item Value Reference Range Comments PARTIAL THROMBOPLASTIN TIME (BEAKER) (test 88.4 seconds 22.5-36.0 wums=174) PROTHROMBIN TIME/[id number] 05:41:00 Test Item Value Reference Range Comments PROTIME (BEAKER) (test rduy=720) 17.8 seconds 11.7-14.7 INR (BEAKER) (test uphc=837) 1.5 <=5.9 RECOMMENDED COUMADIN/WARFARIN INR THERAPY RANGESSTANDARD DOSE: 2.0 - 3.0 Includes: PROPHYLAXIS forvenous thrombosis, systemic embolization; TREATMENT for venous thrombosis and/or pulmonary embolus.HIGH RISK: Target INR is 2.5-3.5 for patients with mechanical heart valves.[id number] 23:10:00 Test Item Value Reference Range Comments PARTIAL THROMBOPLASTIN TIME (BEAKER) (test 72.0 seconds 22.5-36.0 kyej=429) POCT-GLUCOSE [id number] 21:24:00 Test Item Value Reference Range Comments POC-GLUCOSE METER (BEAKER) 244 mg/dL 70-110 TESTED AT [address] (test itgp=9828) [place] [id number] POCT-GLUCOSE [id number] 17:33:00 Test Item Value Reference Range Comments POC-GLUCOSE METER (BEAKER) 119 mg/dL 70-110 TESTED AT [address] (test zili=5021) [place] [address] [id number] 16:23:00 Test Item Value Reference Range Comments PARTIAL THROMBOPLASTIN TIME (BEAKER) (test 54.0 seconds 22.5-36.0 uarb=007) [id number] 13:58:00 Test Item Value Reference Range Comments PARTIAL THROMBOPLASTIN TIME (BEAKER) (test 122.2 seconds 22.5-36.0 kqtb=450) CBC (HEMOGRAM ONLY)2017-11-27 13:51:00 Test Item Value Reference Range Comments WHITE BLOOD CELL COUNT (BEAKER) (test nxgg=535) 7.1 K/ L 3.5-10.5 RED BLOOD CELL COUNT (BEAKER) (test jlcz=793) 4.00 M/ L 4.63-6.08 HEMOGLOBIN (BEAKER) (test unbc=690) 9.4 GM/DL 13.7-17.5 HEMATOCRIT (BEAKER) (test coxs=549) 31.2 % 40.1-51.0 MEAN CORPUSCULAR VOLUME (BEAKER) (test vbpq=276) 78.0 fL 79.0-92.2 MEAN CORPUSCULAR HEMOGLOBIN (BEAKER) (test 23.5 pg 25.7-32.2 zeob=273) MEAN CORPUSCULAR HEMOGLOBIN CONC (BEAKER) (test 30.1 GM/DL 32.3-36.5 zqhw=690) RED CELL DISTRIBUTION WIDTH (BEAKER) (test 16.2 % 11.6-14.4 ozfi=590) PLATELET COUNT (BEAKER) (test gtny=583) 176 K/CU MM 150-450 MEAN PLATELET VOLUME (BEAKER) (test ukwj=799) 10.6 fL 9.4-12.4 NUCLEATED RED BLOOD CELLS (BEAKER) (test 1 /100 WBC 0-0 ekbj=388) POCT-GLUCOSE [id number] 12:29:00 Test Item Value Reference Range Comments POC-GLUCOSE METER (BEAKER) 224 mg/dL 70-110 TESTED AT [address] (test zmfo=3405) [place] [address] HEMOGLOBIN [id number] 10:32:00 Test Item Value Reference Range Comments HEMOGLOBIN A1C (BEAKER) (test vgss=687) 7.0 % 4.3-6.1 POCT-GLUCOSE [id number] 08:37:00 Test Item Value Reference Range Comments POC-GLUCOSE METER (BEAKER) 262 mg/dL 70-110 TESTED AT [address] (test bwvz=4667) [place] [address] BASIC METABOLIC [id number] 06:37:00 Test Item Value Reference Range Comments SODIUM (BEAKER) (test 139 meq/L 136-145 dpnm=386) POTASSIUM (BEAKER) (test 3.8 meq/L 3.5-5.1 yatb=387) CHLORIDE (BEAKER) (test 103 meq/L 98-107 wrvj=433) CO2 (BEAKER) (test 27 meq/L 22-29 kmzy=608) BLOOD UREA NITROGEN 24 mg/dL 7-21 (BEAKER) (test wlsp=137) CREATININE (BEAKER) (test 1.28 mg/dL 0.57-1.25 woez=160) GLUCOSE RANDOM (BEAKER) 280 mg/dL 70-105 (test aoir=928) CALCIUM (BEAKER) (test 8.6 mg/dL 8.4-10.2 nyxc=579) EGFR (BEAKER) (test 58 mL/min/1.73 sq m ESTIMATED GFR IS NOT heca=7739) ACCURATE CREATININE CLEARANCE IN PREDICTING GLOMERULAR FILTRATION RATE. ESTIMATED GFR IS NOT APPLICABLE FOR DIALYSIS PATIENTS. [id number] 06:07:00 Test Item Value Reference Range Comments PARTIAL THROMBOPLASTIN TIME (BEAKER) (test 110.2 seconds 22.5-36.0 lwup=097) PROTHROMBIN TIME/[id number] 05:42:00 Test Item Value Reference Range Comments PROTIME (BEAKER) (test edig=944) 15.4 seconds 11.7-14.7 INR (BEAKER) (test xyib=411) 1.2 <=5.9 RECOMMENDED COUMADIN/WARFARIN INR THERAPY RANGESSTANDARD DOSE: 2.0 - 3.0 Includes: PROPHYLAXIS forvenous thrombosis, systemic embolization; TREATMENT for venous thrombosis and/or pulmonary embolus.HIGH RISK: Target INR is 2.5-3.5 for patients with mechanical heart valves.[id number] 23:05:00 Test Item Value Reference Range Comments PARTIAL THROMBOPLASTIN TIME (BEAKER) (test 90.2 seconds 22.5-36.0 nxln=567) POCT-GLUCOSE [id number] 21:36:00 Test Item Value Reference Range Comments POC-GLUCOSE METER (BEAKER) 165 mg/dL 70-110 TESTED AT [facility] [address] [facility] (test wmjm=4315) [facility] [address] [id number] 17:31:00 Test Item Value Reference Range Comments PARTIAL THROMBOPLASTIN TIME (BEAKER) (test 81.4 seconds 22.5-36.0 ljdf=168) POCT-GLUCOSE [id number] 16:47:00 Test Item Value Reference Range Comments POC-GLUCOSE METER (BEAKER) 101 mg/dL 70-110 TESTED AT [facility] [address] [facility] (test qbck=0320) [facility] [address] POCT-GLUCOSE [id number] 11:52:00 Test Item Value Reference Range Comments POC-GLUCOSE METER (BEAKER) 97 mg/dL 70-110 TESTED AT [facility] [address] [facility] (test jscq=0959) [facility] [address] [id number] 08:26:00 Test Item Value Reference Range Comments LIPASE (BEAKER) (test mgbk=805) 31 U/L 8-78 BASIC METABOLIC [id number] 08:26:00 Test Item Value Reference Range Comments SODIUM (BEAKER) (test 138 meq/L 136-145 syvc=269) POTASSIUM (BEAKER) (test 3.5 meq/L 3.5-5.1 ighn=776) CHLORIDE (BEAKER) (test 102 meq/L 98-107 foom=097) CO2 (BEAKER) (test 27 meq/L 22-29 snbq=774) BLOOD UREA NITROGEN 18 mg/dL 7-21 (BEAKER) (test fwrh=941) CREATININE (BEAKER) (test 0.97 mg/dL 0.57-1.25 jgip=333) GLUCOSE RANDOM (BEAKER) 176 mg/dL 70-105 (test rmuf=845) CALCIUM (BEAKER) (test 8.8 mg/dL 8.4-10.2 vvxb=066) EGFR (BEAKER) (test 80 mL/min/1.73 sq m ESTIMATED GFR IS NOT qeeu=8164) ACCURATE CREATININE CLEARANCE IN PREDICTING GLOMERULAR FILTRATION RATE. ESTIMATED GFR IS NOT APPLICABLE FOR DIALYSIS PATIENTS. HEPATIC FUNCTION [id number] 08:26:00 Test Item Value Reference Range Comments TOTAL PROTEIN (BEAKER) (test jkli=248) 6.7 gm/dL 6.0-8.3 ALBUMIN (BEAKER) (test thyd=8669) 3.2 g/dL 3.5-5.0 BILIRUBIN TOTAL (BEAKER) (test kusv=751) 0.6 mg/dL 0.2-1.2 BILIRUBIN DIRECT (BEAKER) (test ztkw=009) 0.2 mg/dL 0.1-0.5 ALKALINE PHOSPHATASE (BEAKER) (test tjby=645) 95 U/L 40-150 AST (SGOT) (BEAKER) (test neva=600) 22 U/L 5-34 ALT (SGPT) (BEAKER) (test zenz=264) 23 U/L 6-55 POCT-GLUCOSE [id number] 08:11:00 Test Item Value Reference Range Comments POC-GLUCOSE METER (BEAKER) 198 mg/dL 70-110 TESTED AT [facility] [address] [facility] (test mile=4510) [facility] [address] [id number] 07:29:00 Test Item Value Reference Range Comments PARTIAL THROMBOPLASTIN TIME (BEAKER) (test 102.0 seconds 22.5-36.0 dlni=915) PROTHROMBIN TIME/[id number] 07:23:00 Test Item Value Reference Range Comments PROTIME (BEAKER) (test whac=174) 15.4 seconds 11.7-14.7 INR (BEAKER) (test tzbo=179) 1.2 <=5.9 RECOMMENDED COUMADIN/WARFARIN INR THERAPY RANGESSTANDARD DOSE: 2.0 - 3.0 Includes: PROPHYLAXIS forvenous thrombosis, systemic embolization; TREATMENT for venous thrombosis and/or pulmonary embolus.HIGH RISK: Target INR is 2.5-3.5 for patients with mechanical heart valves.CBC (HEMOGRAM ONLY)2017-11-26 07:09:00 Test Item Value Reference Range Comments WHITE BLOOD CELL COUNT (BEAKER) (test ygkk=174) 7.3 K/ L 3.5-10.5 RED BLOOD CELL COUNT (BEAKER) (test hejo=917) 4.18 M/ L 4.63-6.08 HEMOGLOBIN (BEAKER) (test roaf=967) 9.7 GM/DL 13.7-17.5 HEMATOCRIT (BEAKER) (test ewmk=469) 32.0 % 40.1-51.0 MEAN CORPUSCULAR VOLUME (BEAKER) (test qems=160) 76.6 fL 79.0-92.2 MEAN CORPUSCULAR HEMOGLOBIN (BEAKER) (test 23.2 pg 25.7-32.2 gheg=978) MEAN CORPUSCULAR HEMOGLOBIN CONC (BEAKER) (test 30.3 GM/DL 32.3-36.5 dxyj=595) RED CELL DISTRIBUTION WIDTH (BEAKER) (test 16.0 % 11.6-14.4 depq=403) PLATELET COUNT (BEAKER) (test mhav=695) 179 K/CU MM 150-450 MEAN PLATELET VOLUME (BEAKER) (test gprw=752) 10.0 fL 9.4-12.4 NUCLEATED RED BLOOD CELLS (BEAKER) (test 0 /100 WBC 0-0 xxzb=697) [id number] 23:49:00 Test Item Value Reference Range Comments PARTIAL THROMBOPLASTIN TIME (BEAKER) (test 60.2 seconds 22.5-36.0 vbww=661) POCT-GLUCOSE [id number] 21:53:00 Test Item Value Reference Range Comments POC-GLUCOSE METER (BEAKER) 309 mg/dL 70-110 TESTED AT [facility] [address] [place] [address] (test peoh=2555) [facility] [address] POCT-GLUCOSE [id number] 17:31:00 Test Item Value Reference Range Comments POC-GLUCOSE METER (BEAKER) 331 mg/dL 70-110 TESTED AT [address] (test qdxb=0726) [facility] [address] RAD, ABDOMEN/KUB, 1 VIEW [id number] 15:59:00LABS: [facility] NFVOGIUPYV[address] [place] [address] [phone] () (FAX)Reason for exam:->epigastric painFINAL REPORT ONE VIEW ABDOMEN HISTORY: Epigastric pain COMPARISON: 01/18/2017 FINDINGS : 2 supine AP images of the abdomen were obtained. No dilated loops of large or small intestine are visualized. There is gas in nondilated stomach and large intestine. No abnormal calcifications are visualized. Left ventricular assist device is partially imaged. Imaged lung bases appear clear. No skeletal abnormalities are identified. IMPRESSION: Nonobstructive bowel gas pattern. Signed: Vicky Brewster Verified Date/Time: 11/25/2017 15:59:39 Reading Location: [facility] [id number] Ortho ConsultReading Room [id number] 15:57:00 Test Item Value Reference Range Comments PARTIAL THROMBOPLASTIN TIME (BEAKER) (test 100.6 seconds 22.5-36.0 caby=234) HEMOGLOBIN AND [id number] 15:41:00 Test Item Value Reference Range Comments HEMOGLOBIN (BEAKER) (test rxza=315) 9.6 GM/DL 13.7-17.5 HEMATOCRIT (BEAKER) (test fkvc=449) 30.6 % 40.1-51.0 POCT-GLUCOSE [id number] 13:13:00 Test Item Value Reference Range Comments POC-GLUCOSE METER (BEAKER) 290 mg/dL 70-110 TESTED AT [address] (test emib=8591) [place] [address] POCT-GLUCOSE [id number] 08:57:00 Test Item Value Reference Range Comments POC-GLUCOSE METER (BEAKER) 198 mg/dL 70-110 TESTED AT [address] (test nyoh=2248) [place] [address] [id number] 08:26:00 Test Item Value Reference Range Comments PARTIAL THROMBOPLASTIN TIME (BEAKER) (test 61.2 seconds 22.5-36.0 xziu=794) BASIC METABOLIC [id number] 05:38:00 Test Item Value Reference Range Comments SODIUM (BEAKER) (test 134 meq/L 136-145 djsk=284) POTASSIUM (BEAKER) (test 3.8 meq/L 3.5-5.1 vkpz=415) CHLORIDE (BEAKER) (test 102 meq/L 98-107 lfbq=964) CO2 (BEAKER) (test 26 meq/L 22-29 jwry=520) BLOOD UREA NITROGEN 16 mg/dL 7-21 (BEAKER) (test vvzp=958) CREATININE (BEAKER) (test 1.01 mg/dL 0.57-1.25 erex=613) GLUCOSE RANDOM (BEAKER) 231 mg/dL 70-105 (test vvrz=301) CALCIUM (BEAKER) (test 8.7 mg/dL 8.4-10.2 tjxu=424) EGFR (BEAKER) (test 77 mL/min/1.73 sq m ESTIMATED GFR IS NOT cmsg=7312) ACCURATE CREATININE CLEARANCE IN PREDICTING GLOMERULAR FILTRATION RATE. ESTIMATED GFR IS NOT APPLICABLE FOR DIALYSIS PATIENTS. [id number] 05:19:00 Test Item Value Reference Range Comments PARTIAL THROMBOPLASTIN TIME (BEAKER) (test 130.0 seconds 22.5-36.0 dxhp=428) PROTHROMBIN TIME/[id number] 05:10:00 Test Item Value Reference Range Comments PROTIME (BEAKER) (test aqjo=527) 15.6 seconds 11.7-14.7 INR (BEAKER) (test vlbu=050) 1.3 <=5.9 RECOMMENDED COUMADIN/WARFARIN INR THERAPY RANGESSTANDARD DOSE: 2.0 - 3.0 Includes: PROPHYLAXIS forvenous thrombosis, systemic embolization; TREATMENT for venous thrombosis and/or pulmonary embolus.HIGH RISK: Target INR is 2.5-3.5 for patients with mechanical heart valves.CBC (HEMOGRAM ONLY)2017-11-25 04:57:00 Test Item Value Reference Range Comments WHITE BLOOD CELL COUNT (BEAKER) (test upbm=495) 7.1 K/ L 3.5-10.5 RED BLOOD CELL COUNT (BEAKER) (test nunp=200) 3.89 M/ L 4.63-6.08 HEMOGLOBIN (BEAKER) (test omqx=768) 9.1 GM/DL 13.7-17.5 HEMATOCRIT (BEAKER) (test wjpq=023) 30.7 % 40.1-51.0 MEAN CORPUSCULAR VOLUME (BEAKER) (test qcdi=503) 78.9 fL 79.0-92.2 MEAN CORPUSCULAR HEMOGLOBIN (BEAKER) (test 23.4 pg 25.7-32.2 fpry=575) MEAN CORPUSCULAR HEMOGLOBIN CONC (BEAKER) (test 29.6 GM/DL 32.3-36.5 mrte=757) RED CELL DISTRIBUTION WIDTH (BEAKER) (test 15.7 % 11.6-14.4 ofoh=586) PLATELET COUNT (BEAKER) (test lesa=028) 163 K/CU MM 150-450 MEAN PLATELET VOLUME (BEAKER) (test pfbn=892) 9.8 fL 9.4-12.4 NUCLEATED RED BLOOD CELLS (BEAKER) (test 0 /100 WBC 0-0 xylj=892) [id number] 22:42:00 Test Item Value Reference Range Comments PARTIAL THROMBOPLASTIN TIME (BEAKER) (test 63.8 seconds 22.5-36.0 sore=265) POCT-GLUCOSE [id number] 21:35:00 Test Item Value Reference Range Comments POC-GLUCOSE METER (BEAKER) 215 mg/dL 70-110 TESTED AT [address] (test odek=9988) [place] [id number] POCT-GLUCOSE [id number] 17:39:00 Test Item Value Reference Range Comments POC-GLUCOSE METER (BEAKER) 278 mg/dL 70-110 TESTED AT [address] (test tbun=0283) [place] [address] [id number] 14:16:00 Test Item Value Reference Range Comments PARTIAL THROMBOPLASTIN TIME (BEAKER) (test 57.4 seconds 22.5-36.0 pgmr=551) POCT-GLUCOSE [id number] 13:48:00 Test Item Value Reference Range Comments POC-GLUCOSE METER (BEAKER) 215 mg/dL 70-110 TESTED AT [address] (test yqyd=2965) [place] [address] POCT-GLUCOSE [id number] 08:27:00 Test Item Value Reference Range Comments POC-GLUCOSE METER (BEAKER) 322 mg/dL 70-110 TESTED AT [address] (test zhhs=2812) [place] [id number] BASIC METABOLIC [id number] 07:05:00 Test Item Value Reference Range Comments SODIUM (BEAKER) (test 134 meq/L 136-145 retb=418) POTASSIUM (BEAKER) (test 4.6 meq/L 3.5-5.1 Specimen slightly zich=414) hemolyzed CHLORIDE (BEAKER) (test 104 meq/L 98-107 bwvn=311) CO2 (BEAKER) (test 23 meq/L 22-29 vjlu=380) BLOOD UREA NITROGEN 16 mg/dL 7-21 (BEAKER) (test wkkw=094) CREATININE (BEAKER) (test 1.01 mg/dL 0.57-1.25 Specimen slightly lcsf=198) hemolyzed GLUCOSE RANDOM (BEAKER) 325 mg/dL 70-105 (test eqox=583) CALCIUM (BEAKER) (test 8.5 mg/dL 8.4-10.2 ibde=799) EGFR (BEAKER) (test 77 mL/min/1.73 sq m ESTIMATED GFR IS NOT fkwe=0663) ACCURATE CREATININE CLEARANCE IN PREDICTING GLOMERULAR FILTRATION RATE. ESTIMATED GFR IS NOT APPLICABLE FOR DIALYSIS PATIENTS. CBC (HEMOGRAM ONLY)2017-11-24 06:48:00 Test Item Value Reference Range Comments WHITE BLOOD CELL COUNT (BEAKER) (test sdyj=871) 6.6 K/ L 3.5-10.5 RED BLOOD CELL COUNT (BEAKER) (test jwrb=585) 3.94 M/ L 4.63-6.08 HEMOGLOBIN (BEAKER) (test khim=437) 9.3 GM/DL 13.7-17.5 HEMATOCRIT (BEAKER) (test burx=660) 30.8 % 40.1-51.0 MEAN CORPUSCULAR VOLUME (BEAKER) (test jrme=468) 78.2 fL 79.0-92.2 MEAN CORPUSCULAR HEMOGLOBIN (BEAKER) (test 23.6 pg 25.7-32.2 oays=611) MEAN CORPUSCULAR HEMOGLOBIN CONC (BEAKER) (test 30.2 GM/DL 32.3-36.5 crcy=781) RED CELL DISTRIBUTION WIDTH (BEAKER) (test 15.1 % 11.6-14.4 lnou=312) PLATELET COUNT (BEAKER) (test xidc=704) 148 K/CU MM 150-450 MEAN PLATELET VOLUME (BEAKER) (test jvjv=768) 10.2 fL 9.4-12.4 NUCLEATED RED BLOOD CELLS (BEAKER) (test 0 /100 WBC 0-0 yuna=201) PROTHROMBIN TIME/[id number] 06:46:00 Test Item Value Reference Range Comments PROTIME (BEAKER) (test uldj=429) 17.1 seconds 11.7-14.7 INR (BEAKER) (test cuso=452) 1.4 <=5.9 RECOMMENDED COUMADIN/WARFARIN INR THERAPY RANGESSTANDARD DOSE: 2.0 - 3.0 Includes: PROPHYLAXIS forvenous thrombosis, systemic embolization; TREATMENT for venous thrombosis and/or pulmonary embolus.HIGH RISK: Target INR is 2.5-3.5 for patients with mechanical heart valves.[id number] 06:46:00 Test Item Value Reference Range Comments PARTIAL THROMBOPLASTIN TIME (BEAKER) (test 52.5 seconds 22.5-36.0 gzxw=094) [id number] 22:51:00 Test Item Value Reference Range Comments PARTIAL THROMBOPLASTIN TIME (BEAKER) (test 45.0 seconds 22.5-36.0 bwmx=667) POCT-GLUCOSE [id number] 20:33:00 Test Item Value Reference Range Comments POC-GLUCOSE METER (BEAKER) 290 mg/dL 70-110 TESTED AT [address] (test fqof=2347) [facility] [address] POCT-GLUCOSE [id number] 17:18:00 Test Item Value Reference Range Comments POC-GLUCOSE METER (BEAKER) 281 mg/dL 70-110 TESTED AT [address] (test sugt=4107) [facility] [address] POCT-GLUCOSE [id number] 17:00:00 Test Item Value Reference Range Comments POC-GLUCOSE METER (BEAKER) 169 mg/dL 70-110 TESTED AT [address] (test gkmf=0540) [facility] [address] POCT-GLUCOSE [id number] 17:00:00 Test Item Value Reference Range Comments POC-GLUCOSE METER (BEAKER) 232 mg/dL 70-110 TESTED AT [address] (test ocjn=8240) [facility] [address] [id number] 15:43:00 Test Item Value Reference Range Comments PARTIAL THROMBOPLASTIN TIME (BEAKER) (test 36.2 seconds 22.5-36.0 fudv=151) 6 hours after starting heparin infusion and as indicated per sliding scaleTISSUE [id number] 15:42:00Surgical Pathology Report Case: [id number] Authorizing Provider: Emely Wellington Collected: 11/22/2017 1710 MD Nicky OrderingLocation: [facility] CV Recovery Room 2 Received: 2017 0806 Pathologist: Billy Jean MD Specimen: Stomach, Antrum, polyp PART A GASTRIC ANTRUM POLYP, BIOPSY:GASTRIC MUCOSA WITH HYPERPLASTIC FEATURES AND FOCAL INTESTINAL METAPLASIA.NEGATIVEFOR DYSPLASIA OR INVASIVE CARCINOMA.WARTHIN STARRY STAIN FOR HELICOBACTER IS NEGATIVE. Signing Pathologist Direct Phone Line: [phone] signed by Billy Jean MD on at 3:42 [id number], [id number] hemorrhage Stomach antrum polyp The specimen is received in a formalin-filled container labeled with the patient 's information and labeled "stomach antrum polyp" and consists of a 0.1 cm fragment of esteban soft tissue submitted in A1. CG/ew The following special studies were performed on this case and the interpretation is incorporated in the diagnostic report above:BLOCK A1- JACQUIE STARRYPOCT-GLUCOSE [id number] 07:19:00 Test Item Value Reference Range Comments POC-GLUCOSE METER (BEAKER) 271 mg/dL 70-110 TESTED AT [facility] [address] [facility] (test drlx=8261) [facility] [address] BASIC METABOLIC [id number] 06:09:00 Test Item Value Reference Range Comments SODIUM (BEAKER) (test 138 meq/L 136-145 ajfj=707) POTASSIUM (BEAKER) (test 3.9 meq/L 3.5-5.1 xuwk=876) CHLORIDE (BEAKER) (test 104 meq/L 98-107 jnpe=858) CO2 (BEAKER) (test 29 meq/L 22-29 oyvz=943) BLOOD UREA NITROGEN 16 mg/dL 7-21 (BEAKER) (test dtlo=678) CREATININE (BEAKER) (test 1.15 mg/dL 0.57-1.25 ydnw=326) GLUCOSE RANDOM (BEAKER) 234 mg/dL 70-105 (test obnt=716) CALCIUM (BEAKER) (test 8.5 mg/dL 8.4-10.2 kbwb=429) EGFR (BEAKER) (test 66 mL/min/1.73 sq m ESTIMATED GFR IS NOT odma=0239) ACCURATE CREATININE CLEARANCE IN PREDICTING GLOMERULAR FILTRATION RATE. ESTIMATED GFR IS NOT APPLICABLE FOR DIALYSIS PATIENTS. PROTHROMBIN TIME/[id number] 05:45:00 Test Item Value Reference Range Comments PROTIME (BEAKER) (test okon=324) 20.0 seconds 11.7-14.7 INR (BEAKER) (test vbkn=229) 1.7 <=5.9 RECOMMENDED COUMADIN/WARFARIN INR THERAPY RANGESSTANDARD DOSE: 2.0 - 3.0 Includes: PROPHYLAXIS forvenous thrombosis, systemic embolization; TREATMENT for venous thrombosis and/or pulmonary embolus.HIGH RISK: Target INR is 2.5-3.5 for patients with mechanical heart valves.CBC W/PLT COUNT & AUTO [id number] 05:36:00 Test Item Value Reference Range Comments WHITE BLOOD CELL COUNT (BEAKER) (test pxqt=947) 8.1 K/ L 3.5-10.5 RED BLOOD CELL COUNT (BEAKER) (test ooad=825) 4.23 M/ L 4.63-6.08 HEMOGLOBIN (BEAKER) (test skkq=046) 10.0 GM/DL 13.7-17.5 HEMATOCRIT (BEAKER) (test llxw=616) 32.6 % 40.1-51.0 MEAN CORPUSCULAR VOLUME (BEAKER) (test snnq=969) 77.1 fL 79.0-92.2 MEAN CORPUSCULAR HEMOGLOBIN (BEAKER) (test 23.6 pg 25.7-32.2 hpog=008) MEAN CORPUSCULAR HEMOGLOBIN CONC (BEAKER) (test 30.7 GM/DL 32.3-36.5 vokw=174) RED CELL DISTRIBUTION WIDTH (BEAKER) (test 15.0 % 11.6-14.4 uarp=189) PLATELET COUNT (BEAKER) (test dyzl=564) 185 K/CU MM 150-450 MEAN PLATELET VOLUME (BEAKER) (test ntxu=468) 9.9 fL 9.4-12.4 NUCLEATED RED BLOOD CELLS (BEAKER) (test 0 /100 WBC 0-0 thyh=160) NEUTROPHILS RELATIVE PERCENT (BEAKER) (test 70 % wtro=562) LYMPHOCYTES RELATIVE PERCENT (BEAKER) (test 19 % zime=829) MONOCYTES RELATIVE PERCENT (BEAKER) (test 7 % offb=564) EOSINOPHILS RELATIVE PERCENT (BEAKER) (test 3 % opif=199) BASOPHILS RELATIVE PERCENT (BEAKER) (test 1 % bsgm=919) NEUTROPHILS ABSOLUTE COUNT (BEAKER) (test 5.65 K/ L 1.78-5.38 vzls=885) LYMPHOCYTES ABSOLUTE COUNT (BEAKER) (test 1.53 K/ L 1.32-3.57 yffv=089) MONOCYTES ABSOLUTE COUNT (BEAKER) (test 0.56 K/ L 0.30-0.82 htxv=630) EOSINOPHILS ABSOLUTE COUNT (BEAKER) (test 0.23 K/ L 0.04-0.54 vapo=380) BASOPHILS ABSOLUTE COUNT (BEAKER) (test 0.07 K/ L 0.01-0.08 jihm=278) IMMATURE GRANULOCYTES-RELATIVE PERCENT (BEAKER) 1 % 0-1 (test dllp=2866) BASIC METABOLIC [id number] 05:20:00 Test Item Value Reference Range Comments SODIUM (BEAKER) (test 138 meq/L 136-145 sxww=197) POTASSIUM (BEAKER) (test 4.3 meq/L 3.5-5.1 rgxq=979) CHLORIDE (BEAKER) (test 105 meq/L 98-107 rwek=600) CO2 (BEAKER) (test 26 meq/L 22-29 rfia=792) BLOOD UREA NITROGEN 20 mg/dL 7-21 (BEAKER) (test iqrq=748) CREATININE (BEAKER) (test 1.05 mg/dL 0.57-1.25 fqtq=585) GLUCOSE RANDOM (BEAKER) 198 mg/dL 70-105 (test wwxa=403) CALCIUM (BEAKER) (test 8.1 mg/dL 8.4-10.2 bvyq=292) EGFR (BEAKER) (test 73 mL/min/1.73 sq m ESTIMATED GFR IS NOT qauw=5782) ACCURATE CREATININE CLEARANCE IN PREDICTING GLOMERULAR FILTRATION RATE. ESTIMATED GFR IS NOT APPLICABLE FOR DIALYSIS PATIENTS. HEMOGLOBIN AND [id number] 05:14:00 Test Item Value Reference Range Comments HEMOGLOBIN (BEAKER) (test ykfh=083) 9.6 GM/DL 13.7-17.5 HEMATOCRIT (BEAKER) (test byjj=163) 32.0 % 40.1-51.0 PROTHROMBIN TIME/[id number] 04:58:00 Test Item Value Reference Range Comments PROTIME (BEAKER) (test qmjm=206) 23.2 seconds 11.7-14.7 INR (BEAKER) (test wwsa=263) 2.1 <=5.9 RECOMMENDED COUMADIN/WARFARIN INR THERAPY RANGESSTANDARD DOSE: 2.0 - 3.0 Includes: PROPHYLAXIS forvenous thrombosis, systemic embolization; TREATMENT for venous thrombosis and/or pulmonary embolus.HIGH RISK: Target INR is 2.5-3.5 for patients with mechanical heart valves.POCT-GLUCOSE [id number] 00:43:00 Test Item Value Reference Range Comments POC-GLUCOSE METER (BEAKER) 262 mg/dL 70-110 TESTED AT [facility] [address] [place] [address] (test onsx=3642) [facility] [address] HEMOGLOBIN AND [id number] 23:41:00 Test Item Value Reference Range Comments HEMOGLOBIN (BEAKER) (test lgap=150) 10.2 GM/DL 13.7-17.5 HEMATOCRIT (BEAKER) (test tqlc=601) 33.5 % 40.1-51.0 POCT-GLUCOSE [id number] 18:36:00 Test Item Value Reference Range Comments POC-GLUCOSE METER (BEAKER) 309 mg/dL 70-110 TESTED AT [address] (test oirr=8390) [place] [id number] HEMOGLOBIN AND [id number] 18:35:00 Test Item Value Reference Range Comments HEMOGLOBIN (BEAKER) (test zuoo=708) 9.6 GM/DL 13.7-17.5 HEMATOCRIT (BEAKER) (test qkru=252) 31.3 % 40.1-51.0 POCT-GLUCOSE [id number] 13:11:00 Test Item Value Reference Range Comments POC-GLUCOSE METER (BEAKER) 217 mg/dL 70-110 TESTED AT [address] (test xmdc=2708) [place] [id number] LACTATE DEHYDROGENASE (LDH)2017-11-21 12:53:00 Test Item Value Reference Range Comments LACTATE DEHYDROGENASE (BEAKER) (test huwb=483) 318 U/L 125-220 HEMOGLOBIN AND [id number] 12:12:00 Test Item Value Reference Range Comments HEMOGLOBIN (BEAKER) (test hyiy=860) 9.9 GM/DL 13.7-17.5 HEMATOCRIT (BEAKER) (test dlna=372) 32.7 % 40.1-51.0 B-TYPE NATRIURETIC FACTOR (BNP)2017-11-21 03:36:00 Test Item Value Reference Range Comments B-TYPE NATRIURETIC PEPTIDE (BEAKER) (test 339 pg/mL 0-100 uhfo=954) CREATINE KINASE (CK), TOTAL AND [id number] 02:58:00 Test Item Value Reference Range Comments CREATINE KINASE TOTAL (BEAKER) (test stwu=569) 59 U/L 29-200 CREATINE KINASE-MB (BEAKER) (test zfaq=402) 1.0 ng/mL 0.0-6.6 CREATINE KINASE-MB INDEX (BEAKER) (test qjsv=174) 1.7 % CK-MB Reference Range:<6.7 Normal6.7-10.0 Borderline>10.0 AbnormalTROPONIN [id number] 02:58:00 Test Item Value Reference Range Comments TROPONIN I (BEAKER) (test cawu=133) < ng/mL 0.00-0.03 Troponin I (TnI) levels must be interpreted [...] failure, acidosis, acute neurological disease, and persistent tachyarrhythmia.RAD, CHEST, 1 VIEW, NON [id number] 02:11:00LABS: [facility] IADGTVTZPS[address] [place] [address] [phone] () [phone] (FAX)Reason for exam:-> EPISTAXISReason for exam:->RECTAL BLEEDINGReason for exam:->ABDOMINAL PAINShould this be performed at the bedside?->YesFINAL REPORT History: Epistaxis, rectal bleeding, abdominal pain. Comparison: 08/30 Findings: A single view of the chest is submitted. The cardiac silhouette is within normal limits for size. The patient has undergone previous LVAD and left subclavian ICD placement The lung volumes are low. There is no focal consolidation, pneumothorax, large pleural effusion or evidenceof overt pulmonary edema. Cervical fusion hardware is in place. There is no acute bony abnormality. Impression: No acute abnormality. Signed: Ervin Rodriguez MDReport Verified Date/Time: 11/21/2017 02:11:19 Reading Location: [address] Reading Room Electronically signed by: ERVIN RODRIGUEZ M.D. on 02:11 [id number] 01:04:00 Test Item Value Reference Range Comments LIPASE (BEAKER) (test uqgc=647) 20 U/L 8-78 [id number] 01:04:00 Test Item Value Reference Range Comments AMYLASE (BEAKER) (test lfuo=216) 28 U/L 25-125 BASIC METABOLIC [id number] 01:04:00 Test Item Value Reference Range Comments SODIUM (BEAKER) (test 139 meq/L 136-145 gxen=022) POTASSIUM (BEAKER) (test 4.6 meq/L 3.5-5.1 dafq=029) CHLORIDE (BEAKER) (test 105 meq/L 98-107 skql=018) CO2 (BEAKER) (test 26 meq/L 22-29 notc=883) BLOOD UREA NITROGEN 31 mg/dL 7-21 (BEAKER) (test rorr=770) CREATININE (BEAKER) (test 1.26 mg/dL 0.57-1.25 hyem=548) GLUCOSE RANDOM (BEAKER) 225 mg/dL 70-105 (test euyp=937) CALCIUM (BEAKER) (test 8.6 mg/dL 8.4-10.2 qyuy=557) EGFR (BEAKER) (test 59 mL/min/1.73 sq m ESTIMATED GFR IS NOT tldh=3323) ACCURATE CREATININE CLEARANCE IN PREDICTING GLOMERULAR FILTRATION RATE. ESTIMATED GFR IS NOT APPLICABLE FOR DIALYSIS PATIENTS. HEPATIC FUNCTION [id number] 01:04:00 Test Item Value Reference Range Comments TOTAL PROTEIN (BEAKER) (test rksp=646) 7.5 gm/dL 6.0-8.3 ALBUMIN (BEAKER) (test caxn=3528) 3.5 g/dL 3.5-5.0 BILIRUBIN TOTAL (BEAKER) (test fnlr=818) 0.6 mg/dL 0.2-1.2 BILIRUBIN DIRECT (BEAKER) (test iwuy=992) 0.2 mg/dL 0.1-0.5 ALKALINE PHOSPHATASE (BEAKER) (test mizg=355) 106 U/L 40-150 AST (SGOT) (BEAKER) (test cmqi=952) 22 U/L 5-34 ALT (SGPT) (BEAKER) (test byrd=517) 25 U/L 6-55 URINALYSIS W/ [id number] 00:56:00 Test Item Value Reference Range Comments COLOR (BEAKER) (test kmyj=792) Yellow CLARITY (BEAKER) (test ybaq=993) Clear SPECIFIC GRAVITY UA (BEAKER) (test pkqg=088) 1.015 1.001-1.035 PH UA (BEAKER) (test sjfr=391) 5.5 5.0-8.0 PROTEIN UA (BEAKER) (test tdvr=172) 20 mg/dL Negative GLUCOSE UA (BEAKER) (test faml=537) Negative Negative KETONES UA (BEAKER) (test fknd=743) Negative Negative BILIRUBIN UA (BEAKER) (test gfrk=813) Negative Negative BLOOD UA (BEAKER) (test jvcc=511) Small Negative NITRITE UA (BEAKER) (test fpxa=566) Negative Negative LEUKOCYTE ESTERASE UA (BEAKER) (test bfol=484) Negative Negative UROBILINOGEN UA (BEAKER) (test sdrl=201) 0.2 mg/dL 0.2-1.0 RBC UA (BEAKER) (test agah=450) 4 /HPF WBC UA (BEAKER) (test wctr=957) 1 /HPF SQUAMOUS EPITHELIAL (BEAKER) (test yixp=795) < /HPF HYALINE CASTS (BEAKER) (test neuc=396) 1 /LPF SOURCE(BEAKER) (test npyv=1422) Urine, Voided CBC W/PLT COUNT & AUTO [id number] 00:33:00 Test Item Value Reference Range Comments WHITE BLOOD CELL COUNT (BEAKER) (test ezcz=719) 7.7 K/ L 3.5-10.5 RED BLOOD CELL COUNT (BEAKER) (test vdin=939) 3.87 M/ L 4.63-6.08 HEMOGLOBIN (BEAKER) (test unop=220) 8.7 GM/DL 13.7-17.5 HEMATOCRIT (BEAKER) (test leuu=958) 29.7 % 40.1-51.0 MEAN CORPUSCULAR VOLUME (BEAKER) (test sfxq=042) 76.7 fL 79.0-92.2 MEAN CORPUSCULAR HEMOGLOBIN (BEAKER) (test 22.5 pg 25.7-32.2 tjxa=846) MEAN CORPUSCULAR HEMOGLOBIN CONC (BEAKER) (test 29.3 GM/DL 32.3-36.5 wfha=037) RED CELL DISTRIBUTION WIDTH (BEAKER) (test 14.8 % 11.6-14.4 tooz=588) PLATELET COUNT (BEAKER) (test hngq=511) 188 K/CU MM 150-450 MEAN PLATELET VOLUME (BEAKER) (test yijp=270) 9.8 fL 9.4-12.4 NUCLEATED RED BLOOD CELLS (BEAKER) (test 0 /100 WBC 0-0 wtxu=544) NEUTROPHILS RELATIVE PERCENT (BEAKER) (test 67 % shly=631) LYMPHOCYTES RELATIVE PERCENT (BEAKER) (test 23 % vgrr=837) MONOCYTES RELATIVE PERCENT (BEAKER) (test 7 % ejsc=665) EOSINOPHILS RELATIVE PERCENT (BEAKER) (test 2 % ljkn=664) BASOPHILS RELATIVE PERCENT (BEAKER) (test 1 % lsjq=454) NEUTROPHILS ABSOLUTE COUNT (BEAKER) (test 5.13 K/ L 1.78-5.38 xkka=582) LYMPHOCYTES ABSOLUTE COUNT (BEAKER) (test 1.73 K/ L 1.32-3.57 lfvp=460) MONOCYTES ABSOLUTE COUNT (BEAKER) (test 0.53 K/ L 0.30-0.82 seya=275) EOSINOPHILS ABSOLUTE COUNT (BEAKER) (test 0.18 K/ L 0.04-0.54 dqcz=802) BASOPHILS ABSOLUTE COUNT (BEAKER) (test 0.07 K/ L 0.01-0.08 vfjv=999) IMMATURE GRANULOCYTES-RELATIVE PERCENT (BEAKER) 1 % 0-1 (test pltv=9345) [id number] 00:17:00 Test Item Value Reference Range Comments PROTIME (BEAKER) (test uwif=252) 25.4 seconds 11.7-14.7 INR (BEAKER) (test tvrv=529) 2.3 <=5.9 PARTIAL THROMBOPLASTIN TIME (BEAKER) (test 36.2 seconds 22.5-36.0 kcsa=927) RECOMMENDED COUMADIN/WARFARIN INR THERAPY RANGESSTANDARD DOSE: 2.0 - 3.0 Includes: PROPHYLAXIS forvenous thrombosis, systemic embolization; TREATMENT for venous thrombosis and/or pulmonary embolus.HIGH RISK: Target INR is 2.5-3.5 for patients with mechanical heart valves.PLASMA FREE [id number] 07:27 :00 Test Item Value Reference Range Comments HEMOGLOBIN PLASMA (BEAKER) (test pvdv=2835) 30.0 mg/dl 0.0-30.0 HEMOGLOBIN [id number] 20:04:00 Test Item Value Reference Range Comments HEMOGLOBIN A1C (BEAKER) (test blhc=300) 6.7 % 4.3-6.1 [id number] 14:33:00 Test Item Value Reference Range Comments PREALBUMIN (CONRADO) (test weqy=585) 16 mg/dL 14-45 CT, CHEST, WITHOUT [id number] 14:33:00LABS: [facility] [id number] [place], [place] [phone] () (FAX)FINAL REPORT HISTORY: Lung nodule, <1cm COMPARISON : [...] representing aspirated/mucus material. Please see above. Signed: Hank Basseport Verified Date/Time: 14:33:30 Reading Location: [facility] Diagnostic Imaging Reading Room - SLSWV F1 1120 [id number] 14:27:00 Test Item Value Reference Range Comments MAGNESIUM (BEAKER) (test zqbn=786) 1.8 mg/dL 1.6-2.6 BASIC METABOLIC [id number] 14:27:00 Test Item Value Reference Range Comments SODIUM (BEAKER) (test 137 meq/L 136-145 wfjv=020) POTASSIUM (BEAKER) (test 4.7 meq/L 3.5-5.1 qczv=871) CHLORIDE (BEAKER) (test 103 meq/L 98-107 fmik=889) CO2 (BEAKER) (test 26 meq/L 22-29 ixcq=885) BLOOD UREA NITROGEN 25 mg/dL 7-21 (BEAKER) (test oynk=566) CREATININE (BEAKER) (test 1.26 mg/dL 0.57-1.25 uxbn=026) GLUCOSE RANDOM (BEAKER) 157 mg/dL 70-105 (test vrdr=761) CALCIUM (BEAKER) (test 8.9 mg/dL 8.4-10.2 jbog=260) EGFR (BEAKER) (test 59 mL/min/1.73 sq m ESTIMATED GFR IS NOT mtpu=9430) ACCURATE CREATININE CLEARANCE IN PREDICTING GLOMERULAR FILTRATION RATE. ESTIMATED GFR IS NOT APPLICABLE FOR DIALYSIS PATIENTS. HEPATIC FUNCTION [id number] 14:27:00 Test Item Value Reference Range Comments TOTAL PROTEIN (BEAKER) (test phmi=449) 7.9 gm/dL 6.0-8.3 ALBUMIN (BEAKER) (test olji=5763) 3.8 g/dL 3.5-5.0 BILIRUBIN TOTAL (BEAKER) (test xwol=577) 0.6 mg/dL 0.2-1.2 BILIRUBIN DIRECT (BEAKER) (test dgrt=350) 0.3 mg/dL 0.1-0.5 ALKALINE PHOSPHATASE (BEAKER) (test hnbb=820) 97 U/L 40-150 AST (SGOT) (BEAKER) (test lxjz=033) 24 U/L 5-34 ALT (SGPT) (BEAKER) (test nvek=136) 31 U/L 6-55 LACTATE DEHYDROGENASE (LDH)2017-10-05 14:27:00 Test Item Value Reference Range Comments LACTATE DEHYDROGENASE (BEAKER) (test shmt=292) 282 U/L 125-220 PROTHROMBIN [id number] 13:48:00 Test Item Value Reference Range Comments PROTIME (BEAKER) (test ocbv=204) 22.5 seconds 11.7-14.7 INR (BEAKER) (test vdca=634) 2.0 <=5.9 RECOMMENDED COUMADIN/WARFARIN INR THERAPY RANGESSTANDARD DOSE: 2.0 - 3.0 Includes: PROPHYLAXIS forvenous thrombosis, systemic embolization; TREATMENT for venous thrombosis and/or pulmonary embolus.HIGH RISK: Target INR is 2.5-3.5 for patients with mechanical heart valves.CBC W/PLT COUNT & AUTO [id number] 13:36:00 Test Item Value Reference Range Comments WHITE BLOOD CELL COUNT (BEAKER) (test ldfg=040) 6.8 K/ L 3.5-10.5 RED BLOOD CELL COUNT (BEAKER) (test guyn=210) 4.69 M/ L 4.63-6.08 HEMOGLOBIN (BEAKER) (test xafg=259) 11.1 GM/DL 13.7-17.5 HEMATOCRIT (BEAKER) (test vnur=954) 36.3 % 40.1-51.0 MEAN CORPUSCULAR VOLUME (BEAKER) (test halt=746) 77.4 fL 79.0-92.2 MEAN CORPUSCULAR HEMOGLOBIN (BEAKER) (test 23.7 pg 25.7-32.2 uatn=778) MEAN CORPUSCULAR HEMOGLOBIN CONC (BEAKER) (test 30.6 GM/DL 32.3-36.5 zihc=851) RED CELL DISTRIBUTION WIDTH (BEAKER) (test 15.4 % 11.6-14.4 vcjg=095) PLATELET COUNT (BEAKER) (test mfmo=287) 183 K/CU MM 150-450 MEAN PLATELET VOLUME (BEAKER) (test vrws=674) 10.0 fL 9.4-12.4 NUCLEATED RED BLOOD CELLS (BEAKER) (test 0 /100 WBC 0-0 xrez=510) NEUTROPHILS RELATIVE PERCENT (BEAKER) (test 65 % qexu=911) LYMPHOCYTES RELATIVE PERCENT (BEAKER) (test 24 % eqdq=320) MONOCYTES RELATIVE PERCENT (BEAKER) (test 8 % evzi=185) EOSINOPHILS RELATIVE PERCENT (BEAKER) (test 2 % bjab=234) BASOPHILS RELATIVE PERCENT (BEAKER) (test 1 % acco=061) NEUTROPHILS ABSOLUTE COUNT (BEAKER) (test 4.37 K/ L 1.78-5.38 xwqn=228) LYMPHOCYTES ABSOLUTE COUNT (BEAKER) (test 1.62 K/ L 1.32-3.57 iguy=145) MONOCYTES ABSOLUTE COUNT (BEAKER) (test 0.55 K/ L 0.30-0.82 mefs=611) EOSINOPHILS ABSOLUTE COUNT (BEAKER) (test 0.15 K/ L 0.04-0.54 kyvk=049) BASOPHILS ABSOLUTE COUNT (BEAKER) (test 0.07 K/ L 0.01-0.08 xtbk=268) IMMATURE GRANULOCYTES-RELATIVE PERCENT (BEAKER) 0 % 0-1 (test ssyj=0610) HEPATITIS C PCR, [id number] 09:32:00 Test Item Value Reference Range Comments HCV RESULT COMPONENT (BEAKER) HCV RNA not detected HCV RNA not detected (test qbtn=1825) This test uses a Real-Time Polymerase Chain Reaction (RT-PCR) methodology and was performed using [employer] Ampliprep/BHASKAR TaqMan HCV test kit version 2.0 ( [employer]).Reportable range for this assay is 15 - 100,000, 000 IU per mL (1.18 - 8.00 Log IU/mL).AB SPECIFICITY CLASS [id number] 09:45:00 Test Item Value Reference Range Comments DATE OF SERUM (BEAKER) (test yenz=0455) 148459 SERUM # (BEAKER) (test wocc=0733) [id number] AB SPECIFICITY CLASS I (BEAKER) (test See Scanned Report qqyk=6442) FLOW PRA CLASS I AND [id number] 14:14:00 Test Item Value Reference Range Comments DATE OF SERUM (BEAKER) (test cxsp=3198) [id number] SERUM # (BEAKER) (test qnpb=4191) 517124 FLOW PRA CLASS I AND II (test acvf=6150) See Scanned Report HERPES VIRUS ANTIBODY, [id number] 07:57:00 Test Item Value Reference Range Comments HERPES VIRUS IGM (BEAKER) (test gebe=5091) Negative TOXOPLASMA GONDII ANTIBODY, [id number] 07:57:00 Test Item Value Reference Range Comments TOXOPLASMA IGM ANTIBODY (BEAKER) (test unbx=400) Negative ANTI-NUCLEAR ANTIBODY (NOLA)2017-09-01 10:42:00 Test Item Value Reference Range Comments ANTI-NUCLEAR ANTIBODY (NOLA) (BEAKER) (test Negative Negative evfq=100) CYTOMEGALOVIRUS ANTIBODY, [id number] 15:35:00 Test Item Value Reference Range Comments CYTOMEGALOVIRUS IGG ANTIBODY (BEAKER) (test Positive txyq=523) CYTOMEGALOVIRUS ANTIBODY, [id number] 15:35:00 Test Item Value Reference Range Comments CYTOMEGALOVIRUS IGM ANTIBODY (BEAKER) (test Negative jalf=286) EBV-VCA ANTIBODY, [id number] 15:35:00 Test Item Value Reference Range Comments AMAURI-MASON VCA IGG (BEAKER) (test ltpd=214) Positive EBV-VCA ANTIBODY, [id number] 15:35:00 Test Item Value Reference Range Comments AMAURI-MASON VCA IGM (BEAKER) (test oody=037) Negative HERPES VIRUS ANTIBODY, [id number] 15:35:00 Test Item Value Reference Range Comments HERPES VIRUS IGG (BEAKER) (test Positive HSV 1 IGG=POSHSV 2 IGG=NEG znup=0569) TOXOPLASMA GONDII ANTIBODY, [id number] 15:35:00 Test Item Value Reference Range Comments TOXOPLASMA GONDII IGG (BEAKER) (test eozp=078) Negative IMMUNOFIXATION ELECTROPHORESIS (ANGELIKA)2017-08-31 15:30:00 Test Item Value Reference Range Comments IMMUNOGLOBULIN G (IGG) (BEAKER) 1527 mg/dL 540-1822 (test snan=963) IMMUNOGLOBULIN A (IGA) (BEAKER) 402 mg/dL 63-484 (test tkgg=903) IMMUNOGLOBULIN M (IGM) (BEAKER) 98 mg/dL 22-293 (test sybr=457) SERUM ANGELIKA ID (BEAKER) (test No monoclonal proteins dzre=8131) detected. Polyclonal distribution of immunoglobulins. [id number]-[id number] ([facility]) Gloria Schmidt MD (test iptu=4613) (electronic signature) PROTEIN ELECTROPHORESIS, [id number] 15:29:00 Test Item Value Reference Range Comments ALBUMIN FRACTION (BEAKER) 3.4 g/dL 3.5-5.5 (test jvzt=719) ALPHA 1 FRACTION (BEAKER) 0.3 g/dL 0.2-0.4 (test hneq=726) ALPHA 2 FRACTION (BEAKER) 0.7 g/dL 0.5-0.9 (test hdbb=063) BETA FRACTION (BEAKER) (test 1.4 g/dL 0.6-1.1 eifo=716) GAMMA GLOBULIN FRACTION 1.5 g/dL 0.7-1.7 (BEAKER) (test mdtw=458) INTERPRETATION-119 (BEAKER) All fractions present in (test cerf=6596) expected distribution with minor nonspecific changes. No monoclonal bands detected. QGUM-NPAVHUPTUKN-579 Gloria Schmidt MD (BEAKER) (test txjc=1287) (electronic signature) PROTEIN TOTAL SERUM, SPEP 7.3 gm/dL 6.0-8.3 (BEAKER) (test czrz=3318) VARICELLA ZOSTER ANTIBODY, [id number] 15:16:00 Test Item Value Reference Range Comments VARICELLA ZOSTER IGG (AL) (BEAKER) (test qldk=4776) 6.1 Al VARICELLA ZOSTER RESULT INTERPRETATIONS: <=0.8 Al Nonreactive: Presumed non-immune to VZV 0.9-1.0 Al Equivocal >=1.1 Al Reactive: Presumed immune to VZVRAD, BONE DENSITY [id number] 11:20: 00LABS: [facility] [id number] [place] [address] [phone] () [phone] (FAX)Reason for Exam:->Heart transplant evaluationFINAL REPORT Bone mineral density study 2016. CLINICAL INDICATION: Heart transplant evaluation. COMPARISON: 02/03/2016 FINDINGS: Evaluation of the left and right femoral necks and lumbar spine was performed utilizing a Timbre Advance bone densitometer. Data reflect young adult [...] 1.9, and the Z-score is 1.4. Compared tothe prior exam, the bone mineral density of the lumbar spine demonstrates a 1% decrease. The bone density of the left femoral neck demonstrates a 1.4% increase. The bone mineral density of the right femoral neck demonstrates a 4.9% decrease. Signed: Vicky Velazquez Verified Date/Time: 08/31/2017 11:20:44 Reading Location: [address] Mammo Reading Room CT , BRAIN, WITHOUT [id number] 09:58:00LABS: [facility] [address] [place] [address] [phone])[phone] (FAX)FINAL REPORT CT head without contrast INDICATION: LVAD, systolic congestive heart failure, dilated cardiomyopathy, heart transplant evaluation TECHNIQUE: Axial noncontrast CT images through the head were obtained. This exam was performed according to our departmental dose optimization program which includes automated exposure control, adjustment of the mA and/or kV according topatient size and/or use of iterative reconstruction technique. COMPARISON: CT head 04/11/2016 FINDINGS:There is no acute intracranial hemorrhage or mass [...] involutional changes. Stable left mastoidectomy changes. Signed: Devonte Marsh Verified Date/Time: 08/31/2017 09:58:49 Reading Location: [facility] C013V Neuro Reading Room HEMOGLOBIN [id number] 16:20:00 Test Item Value Reference Range Comments HEMOGLOBIN A1C (CONRADO) (test rmjq=745) 9.5 % 4.3-6.1 RAD, CHEST, 2 [id number] 15:22:00LABS: [facility] [id number] [place] [address] [phone] () [phone] (FAX) Reason for Exam:->Heart transplant evaluationFINAL REPORT Chest two views compared to January 17 Discussion: Left chest pacemaker and left ventricular assist device are noted. Lungs clear. Heart size normal. No effusion or pneumothorax. Signed: Maximus Mirandaeport Verified Date/Time: 08/30/2017 15:22:59 Reading Location: [address] Consult Reading Room U/S, RENAL, [id number] 15:04:00LABS: [facility] [id number] [place] [address] [phone] () [phone] (FAX)Reason for Exam: ->Heart transplant evaluationFINAL REPORT Renal ultrasound Comparison: January 2016 Clinical History: Heart transplant evaluation Technique:Sonographic evaluation of the kidneys was performed. 48 images were submitted for interpretation, using a five MHz transducer. Right kidney:The kidney measures 11.1 cmin length. The cortical echogenicity is within normal limits. The cortex measures 1.7 cm. There is no evidence of a focal mass. There is no evidence of hydronephrosis. There is no evidence of a shadowing stone. There is no evidence of a cyst. There is no evidence of a perinephric fluid collection. Flow was visualized to the right kidney. Left kidney:The kidney measures 11.7 cm in length. Thecortical echogenicity is within normal limits. The cortex measures 1.7 cm. There is no evidence ofa focal mass. There is no evidence of [...] measures 4.6 x 3.1 x 3.4 cm. Impression:The kidneys are normal in size and shape without evidence of hydronephrosis. Signed: Mona Solitario MDReport Verified Date/Time: 08/30/2017 15:04:53 Reading Location: [address] Ultrasound Reading Room Electronically signed by: MONA SOLITARIO M.D. on 10/2017 03:04 PMHEPATITIS C [id number] 14:00:00 Test Item Value Reference Range Comments HEPATITIS C ANTIBODY (BEAKER) (test kckb=320) Reactive Nonreactive HEPATITIS A ANTIBODY, [id number] 12:06:00 Test Item Value Reference Range Comments HEPATITIS A IGG ANTIBODY (BEAKER) (test vyvw=4587) Reactive Nonreactive URINALYSIS W/ [id number] 11:35:00 Test Item Value Reference Range Comments COLOR (BEAKER) (test ylao=435) Yellow CLARITY (BEAKER) (test bzzx=746) Clear SPECIFIC GRAVITY UA (BEAKER) (test ogca=127) 1.015 1.001-1.035 PH UA (BEAKER) (test krjq=557) 5.5 5.0-8.0 PROTEIN UA (BEAKER) (test tvhe=652) 20 mg/dL Negative GLUCOSE UA (BEAKER) (test bhby=841) Negative Negative KETONES UA (BEAKER) (test myjd=056) Negative Negative BILIRUBIN UA (BEAKER) (test fpwa=198) Negative Negative BLOOD UA (BEAKER) (test qsyd=491) Trace Negative NITRITE UA (BEAKER) (test vjxw=688) Negative Negative LEUKOCYTE ESTERASE UA (BEAKER) (test fjam=407) Negative Negative UROBILINOGEN UA (BEAKER) (test xkjt=015) 0.2 mg/dL 0.2-1.0 RBC UA (BEAKER) (test ljlp=590) 3 /HPF WBC UA (BEAKER) (test khoe=196) 0 /HPF SOURCE(BEAKER) (test fvdi=5311) HEPATITIS B CORE ANTIBODY, [id number] 11:24:00 Test Item Value Reference Range Comments HEPATITIS B CORE IGM ANTIBODY (BEAKER) (test Nonreactive Nonreactive yibx=184) HEPATITIS A ANTIBODY, [id number] 11:24:00 Test Item Value Reference Range Comments HEPATITIS A IGM ANTIBODY (BEAKER) (test Nonreactive Nonreactive ubfd=899) HEPATITIS B CORE ANTIBODY, [id number] 11:24:00 Test Item Value Reference Range Comments HEPATITIS B CORE TOTAL ANTIBODY (BEAKER) (test Nonreactive Nonreactive uobd=605) [id number] 11:24:00 Test Item Value Reference Range Comments RPR SCREEN (BEAKER) (test dhog=716) Nonreactive Nonreactive [id number] 11:24:00 Test Item Value Reference Range Comments PROSTATE SPECIFIC ANTIGEN (BEAKER) (test kspe=829) 0.5 ng/mL 0.0-4.0 HEPATITIS B SURFACE [id number] 11:02:00 Test Item Value Reference Range Comments HEPATITIS B SURFACE ANTIGEN (2) (BEAKER) (test Nonreactive Nonreactive beom=0316) HIV-1 ANTIGEN WITH HIV-1/2 [id number] 11:02:00 Test Item Value Reference Range Comments HIV-1 ANTIGEN WITH HIV 1\\T\\2 ANTIBODY (2) Nonreactive Nonreactive (BEAKER) (test ncxp=6138) T4, [id number] 10:40:00 Test Item Value Reference Range Comments FREE T4 (BEAKER) (test mujs=615) 1.08 ng/dL 0.70-1.48 [id number] 10:40:00 Test Item Value Reference Range Comments THYROID STIMULATING HORMONE (BEAKER) (test 1.68 uIU/mL 0.35-4.94 vnjo=514) VITAMIN D, [id number] 10:40:00 Test Item Value Reference Range Comments VITAMIN D 25-OH (BEAKER) (test wllh=9185) 10.7 ng/mL 6.6-49.9 Effective 08/29/2017: Reference Range ChangeNew: 6.6-49.9 ng/mL Previous: 13.0 -47.8 ng/mLRecommended Vitamin D Target Range: 30.0-40.0 ng/[id number] 10:39:00 Test Item Value Reference Range Comments PREALBUMIN (BEAKER) (test scgq=735) 16 mg/dL 14-45 IRON, [id number] 10:39:00 Test Item Value Reference Range Comments IRON (BEAKER) (test rmzp=229) 50 ug/dL 40-160 [id number] 10:39:00 Test Item Value Reference Range Comments FERRITIN (BEAKER) (test ytwy=364) 16 ng/mL 5-275 [id number] 10:26:00 Test Item Value Reference Range Comments TRANSFERRIN (BEAKER) (test lymd=693) 358 mg/dL 174-382 B-TYPE NATRIURETIC FACTOR (BNP)2017-08-30 10:25:00 Test Item Value Reference Range Comments B-TYPE NATRIURETIC PEPTIDE (BEAKER) (test 287 pg/mL 0-100 mryf=187) URIC [id number] 10:21:00 Test Item Value Reference Range Comments URIC ACID (BEAKER) (test qdwb=658) 8.1 mg/dL 2.6-7.2 [id number] 10:21:00 Test Item Value Reference Range Comments MAGNESIUM (BEAKER) (test evpp=526) 1.7 mg/dL 1.6-2.6 [id number] 10:21:00 Test Item Value Reference Range Comments PHOSPHORUS (BEAKER) (test oesk=831) 2.9 mg/dL 2.3-4.7 BASIC METABOLIC [id number] 10:21:00 Test Item Value Reference Range Comments SODIUM (BEAKER) (test 139 meq/L 136-145 ieij=238) POTASSIUM (BEAKER) (test 4.3 meq/L 3.5-5.1 gewz=366) CHLORIDE (BEAKER) (test 105 meq/L 98-107 mjzd=711) CO2 (BEAKER) (test 28 meq/L 22-29 vnor=923) BLOOD UREA NITROGEN 27 mg/dL 7-21 (BEAKER) (test ojyw=686) CREATININE (BEAKER) (test 1.11 mg/dL 0.57-1.25 zozi=539) GLUCOSE RANDOM (BEAKER) 130 mg/dL 70-105 (test nsvp=578) CALCIUM (BEAKER) (test 9.0 mg/dL 8.4-10.2 nyrk=055) EGFR (BEAKER) (test 69 mL/min/1.73 sq m ESTIMATED GFR IS NOT ygtp=1633) ACCURATE CREATININE CLEARANCE IN PREDICTING GLOMERULAR FILTRATION RATE. ESTIMATED GFR IS NOT APPLICABLE FOR DIALYSIS PATIENTS. LIPID [id number] 10:21:00 Test Item Value Reference Range Comments TRIGLYCERIDES (BEAKER) (test vjms=372) 128 mg/dL CHOLESTEROL (BEAKER) (test udcv=097) 147 mg/dL HDL CHOLESTEROL (BEAKER) (test cwok=320) 35 mg/dL LDL CHOLESTEROL CALCULATED (BEAKER) (test 86 mg/dL hnax=970) Triglyceride Reference Range: Low Risk <150 Borderline 150- 199 High Risk 200-499 Very High Risk >=500Cholesterol Reference Range: Low Risk <200 Borderline 200-239 High Risk > 240HDL Cholesterol Reference Range: Low Risk >=60 High Risk <40LDL Cholesterol Reference Range: Optimal <100 Near Optimal 100-129 Borderline 130-159 High 160-189 Very High >=190HEPATIC FUNCTION [id number] 10:21:00 Test Item Value Reference Range Comments TOTAL PROTEIN (BEAKER) (test jshr=724) 7.8 gm/dL 6.0-8.3 ALBUMIN (BEAKER) (test ilae=1055) 3.7 g/dL 3.5-5.0 BILIRUBIN TOTAL (BEAKER) (test meln=896) 0.6 mg/dL 0.2-1.2 BILIRUBIN DIRECT (BEAKER) (test jiqa=983) 0.3 mg/dL 0.1-0.5 ALKALINE PHOSPHATASE (BEAKER) (test bqux=852) 111 U/L 40-150 AST (SGOT) (BEAKER) (test geef=873) 24 U/L 5-34 ALT (SGPT) (BEAKER) (test jhlt=614) 28 U/L 6-55 [id number] 10:21:00 Test Item Value Reference Range Comments AMYLASE (BEAKER) (test pklv=771) 30 U/L 25-125 GAMMA GLUTAMYL TRANSFERASE (GGT)2017-08-30 10:21:00 Test Item Value Reference Range Comments GAMMA GLUTAMYL TRANSFERASE (BEAKER) (test hjwd=992) 347 U/L 9-64 LACTATE DEHYDROGENASE (LDH)2017-08-30 10:21:00 Test Item Value Reference Range Comments LACTATE DEHYDROGENASE (BEAKER) (test vwvh=715) 308 U/L 125-220 [id number] 10:21:00 Test Item Value Reference Range Comments LIPASE (BEAKER) (test jtgr=365) 14 U/L 8-78 PLASMA FREE [id number] 10:14:00 Test Item Value Reference Range Comments HEMOGLOBIN PLASMA (BEAKER) (test pfqe=5460) < mg/dl 0.0-30.0 [id number] 10:12:00 Test Item Value Reference Range Comments PROTIME (BEAKER) (test ektl=486) 26.0 seconds 11.7-14.7 INR (BEAKER) (test dfea=978) 2.4 <=5.9 PARTIAL THROMBOPLASTIN TIME (BEAKER) (test 38.9 seconds 22.5-36.0 rlgb=297) RECOMMENDED COUMADIN/WARFARIN INR THERAPY RANGESSTANDARD DOSE: 2.0 - 3.0 Includes: PROPHYLAXIS forvenous thrombosis, systemic embolization; TREATMENT for venous thrombosis and/or pulmonary embolus.HIGH RISK: Target INR is 2.5-3.5 for patients with mechanical heart valves.PROTHROMBIN [id number] 10:11: 00 Test Item Value Reference Range Comments PROTIME (BEAKER) (test ihts=986) 26.0 seconds 11.7-14.7 INR (BEAKER) (test pdqb=672) 2.4 <=5.9 RECOMMENDED COUMADIN/WARFARIN INR THERAPY RANGESSTANDARD DOSE: 2.0 - 3.0 Includes: PROPHYLAXIS forvenous thrombosis, systemic embolization; TREATMENT for venous thrombosis and/or pulmonary embolus.HIGH RISK: Target INR is 2.5-3.5 for patients with mechanical heart valves.RETICULOCYTE [id number] 10:01:00 Test Item Value Reference Range Comments RETICULOCYTE COUNT PCT (BEAKER) (test xzho=733) 2.4 % 0.5-1.8 CBC W/PLT COUNT & AUTO [id number] 10:01:00 Test Item Value Reference Range Comments WHITE BLOOD CELL COUNT (BEAKER) (test bazl=922) 7.4 K/ L 3.5-10.5 RED BLOOD CELL COUNT (BEAKER) (test ikfc=115) 4.79 M/ L 4.63-6.08 HEMOGLOBIN (BEAKER) (test shun=167) 11.5 GM/DL 13.7-17.5 HEMATOCRIT (BEAKER) (test vmtt=023) 36.9 % 40.1-51.0 MEAN CORPUSCULAR VOLUME (BEAKER) (test mtqc=884) 77.0 fL 79.0-92.2 MEAN CORPUSCULAR HEMOGLOBIN (BEAKER) (test 24.0 pg 25.7-32.2 etcz=788) MEAN CORPUSCULAR HEMOGLOBIN CONC (BEAKER) (test 31.2 GM/DL 32.3-36.5 omhu=575) RED CELL DISTRIBUTION WIDTH (BEAKER) (test 16.7 % 11.6-14.4 mvwn=044) PLATELET COUNT (BEAKER) (test ttwa=837) 175 K/CU MM 150-450 MEAN PLATELET VOLUME (BEAKER) (test nhmw=799) 10.4 fL 9.4-12.4 NUCLEATED RED BLOOD CELLS (BEAKER) (test 0 /100 WBC 0-0 cjip=482) NEUTROPHILS RELATIVE PERCENT (BEAKER) (test 68 % mckh=171) LYMPHOCYTES RELATIVE PERCENT (BEAKER) (test 21 % ylxm=342) MONOCYTES RELATIVE PERCENT (BEAKER) (test 7 % dznn=719) EOSINOPHILS RELATIVE PERCENT (BEAKER) (test 3 % sugv=839) BASOPHILS RELATIVE PERCENT (BEAKER) (test 1 % vfiu=879) NEUTROPHILS ABSOLUTE COUNT (BEAKER) (test 4.97 K/ L 1.78-5.38 codk=466) LYMPHOCYTES ABSOLUTE COUNT (BEAKER) (test 1.56 K/ L 1.32-3.57 dqbr=510) MONOCYTES ABSOLUTE COUNT (BEAKER) (test 0.50 K/ L 0.30-0.82 rgwa=721) EOSINOPHILS ABSOLUTE COUNT (BEAKER) (test 0.20 K/ L 0.04-0.54 zccc=886) BASOPHILS ABSOLUTE COUNT (BEAKER) (test 0.08 K/ L 0.01-0.08 ioyq=927) IMMATURE GRANULOCYTES-RELATIVE PERCENT (BEAKER) 1 % 0-1 (test twfj=7958) PLASMA FREE [id number] 11:32:00 Test Item Value Reference Range Comments HEMOGLOBIN PLASMA (BEAKER) (test dwuq=1206) 30.0 mg/dl 0.0-30.0 [id number] 11:15:00 Test Item Value Reference Range Comments MAGNESIUM (BEAKER) (test fhdj=880) 1.9 mg/dL 1.6-2.6 BASIC METABOLIC [id number] 11:15:00 Test Item Value Reference Range Comments SODIUM (BEAKER) (test 136 meq/L 136-145 ojev=737) POTASSIUM (BEAKER) (test 4.6 meq/L 3.5-5.1 jpiq=024) CHLORIDE (BEAKER) (test 102 meq/L 98-107 bncx=462) CO2 (BEAKER) (test 28 meq/L 22-29 coyp=796) BLOOD UREA NITROGEN 24 mg/dL 7-21 (BEAKER) (test rdsb=286) CREATININE (BEAKER) (test 1.22 mg/dL 0.57-1.25 uydh=251) GLUCOSE RANDOM (BEAKER) 143 mg/dL 70-105 (test yppl=258) CALCIUM (BEAKER) (test 9.3 mg/dL 8.4-10.2 ehsl=507) EGFR (BEAKER) (test 62 mL/min/1.73 sq m ESTIMATED GFR IS NOT uabo=3736) ACCURATE CREATININE CLEARANCE IN PREDICTING GLOMERULAR FILTRATION RATE. ESTIMATED GFR IS NOT APPLICABLE FOR DIALYSIS PATIENTS. HEPATIC FUNCTION [id number] 11:15:00 Test Item Value Reference Range Comments TOTAL PROTEIN (BEAKER) (test cziq=792) 7.9 gm/dL 6.0-8.3 ALBUMIN (BEAKER) (test wwyu=6736) 3.7 g/dL 3.5-5.0 BILIRUBIN TOTAL (BEAKER) (test qqfn=561) 0.5 mg/dL 0.2-1.2 BILIRUBIN DIRECT (BEAKER) (test pwcf=627) 0.2 mg/dL 0.1-0.5 ALKALINE PHOSPHATASE (BEAKER) (test olsu=804) 107 U/L 40-150 AST (SGOT) (BEAKER) (test tkpo=284) 26 U/L 5-34 ALT (SGPT) (BEAKER) (test kyyl=015) 29 U/L 6-55 LACTATE DEHYDROGENASE (LDH)2017-08-03 11:15:00 Test Item Value Reference Range Comments LACTATE DEHYDROGENASE (BEAKER) (test ymbh=742) 258 U/L 125-220 [id number] 11:09:00 Test Item Value Reference Range Comments PREALBUMIN (BEAKER) (test evhf=814) 17 mg/dL 14-45 PROTHROMBIN [id number] 11:03:00 Test Item Value Reference Range Comments PROTIME (BEAKER) (test wrqs=240) 22.5 seconds 11.7-14.7 INR (BEAKER) (test dmiy=086) 2.0 <=5.9 RECOMMENDED COUMADIN/WARFARIN INR THERAPY RANGESSTANDARD DOSE: 2.0 - 3.0 Includes: PROPHYLAXIS forvenous thrombosis, systemic embolization; TREATMENT for venous thrombosis and/or pulmonary embolus.HIGH RISK: Target INR is 2.5-3.5 for patients with mechanical heart valves.CBC W/PLT COUNT & AUTO [id number] 10:55:00 Test Item Value Reference Range Comments WHITE BLOOD CELL COUNT (BEAKER) (test ljoc=610) 8.0 K/ L 3.5-10.5 RED BLOOD CELL COUNT (BEAKER) (test hkqh=926) 4.67 M/ L 4.63-6.08 HEMOGLOBIN (BEAKER) (test tqld=234) 10.9 GM/DL 13.7-17.5 HEMATOCRIT (BEAKER) (test crqg=933) 35.9 % 40.1-51.0 MEAN CORPUSCULAR VOLUME (BEAKER) (test zdjc=750) 76.9 fL 79.0-92.2 MEAN CORPUSCULAR HEMOGLOBIN (BEAKER) (test 23.3 pg 25.7-32.2 tvhp=636) MEAN CORPUSCULAR HEMOGLOBIN CONC (BEAKER) (test 30.4 GM/DL 32.3-36.5 rmpb=333) RED CELL DISTRIBUTION WIDTH (BEAKER) (test 15.0 % 11.6-14.4 ksqt=105) PLATELET COUNT (BEAKER) (test bwlg=537) 198 K/CU MM 150-450 MEAN PLATELET VOLUME (BEAKER) (test xfzw=181) 10.2 fL 9.4-12.4 NUCLEATED RED BLOOD CELLS (BEAKER) (test 0 /100 WBC 0-0 iqfh=498) NEUTROPHILS RELATIVE PERCENT (BEAKER) (test 69 % gumx=374) LYMPHOCYTES RELATIVE PERCENT (BEAKER) (test 20 % wtkj=989) MONOCYTES RELATIVE PERCENT (BEAKER) (test 8 % zmby=446) EOSINOPHILS RELATIVE PERCENT (BEAKER) (test 2 % nasg=455) BASOPHILS RELATIVE PERCENT (BEAKER) (test 1 % gfpl=249) NEUTROPHILS ABSOLUTE COUNT (BEAKER) (test 5.50 K/ L 1.78-5.38 ibey=065) LYMPHOCYTES ABSOLUTE COUNT (BEAKER) (test 1.60 K/ L 1.32-3.57 ebaq=061) MONOCYTES ABSOLUTE COUNT (BEAKER) (test 0.61 K/ L 0.30-0.82 yyiq=702) EOSINOPHILS ABSOLUTE COUNT (BEAKER) (test 0.18 K/ L 0.04-0.54 zwio=497) BASOPHILS ABSOLUTE COUNT (BEAKER) (test 0.07 K/ L 0.01-0.08 dbnr=202) IMMATURE GRANULOCYTES-RELATIVE PERCENT (BEAKER) 1 % 0-1 (test vtaq=1052) [id number] 12:32:00 Test Item Value Reference Range Comments Coagulation (test 29.9 SEC 12.0-14.7 code=PT-T) Coagulation (test 2.7 ATTENTION: READ code=INR) CAREFULLY -The recommended therapeutic ranges for oral anticoagulanttreatments are: Low Intensity: 1.5 - 2.0 Moderate Intensity: 2.0 - 3.0 High Intensity (1): 2.5 - 3.5 High Intensity (2): 3.0 - 4.0 CRITICAL: > 4.0 CBC W/PLT COUNT & AUTO [id number] 11:34:00 Test Item Value Reference Range Comments WHITE BLOOD CELL COUNT (BEAKER) (test nief=649) 6.9 K/ L 4.0-10.0 RED BLOOD CELL COUNT (BEAKER) (test ksbd=279) 4.50 M/ L 4.20-5.80 HEMOGLOBIN (BEAKER) (test czfc=054) 11.2 GM/DL 13.0-16.8 HEMATOCRIT (BEAKER) (test rhhd=752) 35.4 % 40.0-50.0 MEAN CORPUSCULAR VOLUME (BEAKER) (test mwsk=998) 78.8 fL 82.0-98.0 MEAN CORPUSCULAR HEMOGLOBIN (BEAKER) (test 25.0 pg 27.0-33.0 jtzt=331) MEAN CORPUSCULAR HEMOGLOBIN CONC (BEAKER) (test 31.7 GM/DL 32.0-36.0 ilbs=951) RED CELL DISTRIBUTION WIDTH (BEAKER) (test 14.1 % 10.3-14.2 bbar=504) PLATELET COUNT (BEAKER) (test pqxe=776) 175 K/CU MM 150-430 MEAN PLATELET VOLUME (BEAKER) (test vqmy=216) 8.0 fL 6.5-10.5 NUCLEATED RED BLOOD CELLS (BEAKER) (test 0 /100 WBC 0-0 ovzn=122) NEUTROPHILS RELATIVE PERCENT (BEAKER) (test 65 % zfnp=978) LYMPHOCYTES RELATIVE PERCENT (BEAKER) (test 25 % lzrk=186) MONOCYTES RELATIVE PERCENT (BEAKER) (test 8 % levh=746) EOSINOPHILS RELATIVE PERCENT (BEAKER) (test 2 % qlan=078) BASOPHILS RELATIVE PERCENT (BEAKER) (test 1 % alxg=911) NEUTROPHILS ABSOLUTE COUNT (BEAKER) (test 4.46 K/ L 1.80-8.00 pbtz=704) LYMPHOCYTES ABSOLUTE COUNT (BEAKER) (test 1.71 K/ L 1.48-4.50 zfdg=156) MONOCYTES ABSOLUTE COUNT (BEAKER) (test 0.55 K/ L 0.00-1.30 qzjw=112) EOSINOPHILS ABSOLUTE COUNT (BEAKER) (test 0.14 K/ L 0.00-0.50 jaei=084) BASOPHILS ABSOLUTE COUNT (BEAKER) (test 0.05 K/ L 0.00-0.20 nuzf=496) 0.00PLASMA FREE [id number] 11:25:00 Test Item Value Reference Range Comments HEMOGLOBIN PLASMA (BEAKER) (test tang=4896) < mg/dl 0.0-30.0 [id number] 11:11:00 Test Item Value Reference Range Comments PREALBUMIN (BEAKER) (test kduw=895) 17 mg/dL 14-45 [id number] 11:04:00 Test Item Value Reference Range Comments MAGNESIUM (BEAKER) (test zral=806) 1.7 mg/dL 1.6-2.6 BASIC METABOLIC [id number] 11:04:00 Test Item Value Reference Range Comments SODIUM (BEAKER) (test 138 meq/L 136-145 cvkj=190) POTASSIUM (BEAKER) (test 4.3 meq/L 3.5-5.1 udbq=164) CHLORIDE (BEAKER) (test 100 meq/L 98-107 psrc=548) CO2 (BEAKER) (test 29 meq/L 22-29 zcuc=447) BLOOD UREA NITROGEN 26 mg/dL 7-21 (BEAKER) (test donp=708) CREATININE (BEAKER) (test 1.24 mg/dL 0.57-1.25 urmb=184) GLUCOSE RANDOM (BEAKER) 211 mg/dL 70-105 (test yckz=728) CALCIUM (BEAKER) (test 8.9 mg/dL 8.4-10.2 chef=854) EGFR (BEAKER) (test 61 mL/min/1.73 sq m ESTIMATED GFR IS NOT tddr=0368) ACCURATE CREATININE CLEARANCE IN PREDICTING GLOMERULAR FILTRATION RATE. ESTIMATED GFR IS NOT APPLICABLE FOR DIALYSIS PATIENTS. HEPATIC FUNCTION [id number] 11:04:00 Test Item Value Reference Range Comments TOTAL PROTEIN (BEAKER) (test oquj=829) 7.4 gm/dL 6.0-8.3 ALBUMIN (BEAKER) (test oeeo=1525) 3.6 g/dL 3.5-5.0 BILIRUBIN TOTAL (BEAKER) (test fixj=561) 0.6 mg/dL 0.2-1.2 BILIRUBIN DIRECT (BEAKER) (test yvtd=005) 0.3 mg/dL 0.1-0.5 ALKALINE PHOSPHATASE (BEAKER) (test kyjy=982) 117 U/L 40-150 AST (SGOT) (BEAKER) (test kyvb=120) 25 U/L 5-34 ALT (SGPT) (BEAKER) (test tcpb=101) 40 U/L 6-55 LACTATE DEHYDROGENASE (LDH)2017-06-04 11:04:00 Test Item Value Reference Range Comments LACTATE DEHYDROGENASE (BEAKER) (test qxly=509) 253 U/L 125-220 PROTHROMBIN [id number] 10:54:00 Test Item Value Reference Range Comments PROTIME (BEAKER) (test wvta=009) 20.9 seconds 11.7-14.7 INR (BEAKER) (test qdrh=884) 1.8 <=5.9 RECOMMENDED COUMADIN/WARFARIN INR THERAPY RANGESSTANDARD DOSE: 2.0 - 3.0 Includes: PROPHYLAXIS forvenous thrombosis, systemic embolization; TREATMENT for venous thrombosis and/or pulmonary embolus.HIGH RISK: Target INR is 2.5-3.5 for patients with mechanical heart valves.T4, [id number] 14:16:00 Test Item Value Reference Range Comments FREE T4 (BEAKER) (test yllf=984) 1.04 ng/dL 0.70-1.48 [id number] 14:16:00 Test Item Value Reference Range Comments THYROID STIMULATING HORMONE (BEAKER) (test 1.79 uIU/mL 0.35-4.94 xsmc=195) [id number] 12:33:00 Test Item Value Reference Range Comments PREALBUMIN (BEAKER) (test odao=969) 18 mg/dL 14-45 [id number] 11:48:00 Test Item Value Reference Range Comments MAGNESIUM (BEAKER) (test ukfe=411) 1.9 mg/dL 1.6-2.6 BASIC METABOLIC [id number] 11:48:00 Test Item Value Reference Range Comments SODIUM (BEAKER) (test 140 meq/L 136-145 cbmf=259) POTASSIUM (BEAKER) (test 4.5 meq/L 3.5-5.1 fqkx=094) CHLORIDE (BEAKER) (test 103 meq/L 98-107 rrov=923) CO2 (BEAKER) (test 30 meq/L 22-29 qhut=039) BLOOD UREA NITROGEN 30 mg/dL 7-21 (BEAKER) (test ldvh=364) CREATININE (BEAKER) (test 1.35 mg/dL 0.57-1.25 zpsx=240) GLUCOSE RANDOM (BEAKER) 164 mg/dL 70-105 (test qaze=310) CALCIUM (BEAKER) (test 8.9 mg/dL 8.4-10.2 ahgb=358) EGFR (BEAKER) (test 55 mL/min/1.73 sq m ESTIMATED GFR IS NOT jizw=7516) ACCURATE CREATININE CLEARANCE IN PREDICTING GLOMERULAR FILTRATION RATE. ESTIMATED GFR IS NOT APPLICABLE FOR DIALYSIS PATIENTS. HEPATIC FUNCTION [id number] 11:48:00 Test Item Value Reference Range Comments TOTAL PROTEIN (BEAKER) (test vfdj=977) 7.4 gm/dL 6.0-8.3 ALBUMIN (BEAKER) (test mdth=7468) 3.5 g/dL 3.5-5.0 BILIRUBIN TOTAL (BEAKER) (test ckgy=887) 0.5 mg/dL 0.2-1.2 BILIRUBIN DIRECT (BEAKER) (test cqxy=909) 0.2 mg/dL 0.1-0.5 ALKALINE PHOSPHATASE (BEAKER) (test cwhp=812) 119 U/L 40-150 AST (SGOT) (BEAKER) (test vkki=948) 27 U/L 5-34 ALT (SGPT) (BEAKER) (test dmfh=250) 38 U/L 6-55 LACTATE DEHYDROGENASE (LDH)2017-04-20 11:48:00 Test Item Value Reference Range Comments LACTATE DEHYDROGENASE (BEAKER) (test jfuc=326) 263 U/L 125-220 PROTHROMBIN [id number] 11:34:00 Test Item Value Reference Range Comments PROTIME (BEAKER) (test dubs=586) 26.7 seconds 11.7-14.7 INR (BEAKER) (test vjhx=594) 2.5 <=5.9 RECOMMENDED COUMADIN/WARFARIN INR THERAPY RANGESSTANDARD DOSE: 2.0 - 3.0 Includes: PROPHYLAXIS forvenous thrombosis, systemic embolization; TREATMENT for venous thrombosis and/or pulmonary embolus.HIGH RISK: Target INR is 2.5-3.5 for patients with mechanical heart valves.PLASMA FREE [id number] 11:34 :00 Test Item Value Reference Range Comments HEMOGLOBIN PLASMA (BEAKER) (test oyut=1084) 30.0 mg/dl 0.0-30.0 CBC W/PLT COUNT & AUTO [id number] 11:32:00 Test Item Value Reference Range Comments WHITE BLOOD CELL COUNT (BEAKER) (test igey=049) 8.3 K/ L 4.0-10.0 RED BLOOD CELL COUNT (BEAKER) (test eoqh=102) 4.53 M/ L 4.20-5.80 HEMOGLOBIN (BEAKER) (test rkgc=949) 11.7 GM/DL 13.0-16.8 HEMATOCRIT (BEAKER) (test ubkm=910) 36.3 % 40.0-50.0 MEAN CORPUSCULAR VOLUME (BEAKER) (test ddzw=007) 80.0 fL 82.0-98.0 MEAN CORPUSCULAR HEMOGLOBIN (BEAKER) (test 25.7 pg 27.0-33.0 kwep=196) MEAN CORPUSCULAR HEMOGLOBIN CONC (BEAKER) (test 32.2 GM/DL 32.0-36.0 tthh=329) RED CELL DISTRIBUTION WIDTH (BEAKER) (test 15.6 % 10.3-14.2 rsui=778) PLATELET COUNT (BEAKER) (test zozy=157) 180 K/CU MM 150-430 MEAN PLATELET VOLUME (BEAKER) (test uqyl=244) 7.8 fL 6.5-10.5 NUCLEATED RED BLOOD CELLS (BEAKER) (test 0 /100 WBC 0-0 lscu=551) NEUTROPHILS RELATIVE PERCENT (BEAKER) (test 63 % ltmk=707) LYMPHOCYTES RELATIVE PERCENT (BEAKER) (test 27 % ehyp=829) MONOCYTES RELATIVE PERCENT (BEAKER) (test 8 % uayb=900) EOSINOPHILS RELATIVE PERCENT (BEAKER) (test 2 % cjno=525) BASOPHILS RELATIVE PERCENT (BEAKER) (test 1 % vsyn=788) NEUTROPHILS ABSOLUTE COUNT (BEAKER) (test 5.19 K/ L 1.80-8.00 jsfu=052) LYMPHOCYTES ABSOLUTE COUNT (BEAKER) (test 2.22 K/ L 1.48-4.50 vzlg=238) MONOCYTES ABSOLUTE COUNT (BEAKER) (test 0.65 K/ L 0.00-1.30 mgfc=095) EOSINOPHILS ABSOLUTE COUNT (BEAKER) (test 0.17 K/ L 0.00-0.50 ybth=667) BASOPHILS ABSOLUTE COUNT (BEAKER) (test 0.07 K/ L 0.00-0.20 ieqd=142) [id number] 10:44:00 Test Item Value Reference Range Comments FERRITIN (BEAKER) (test uere=258) 26 ng/mL 5-275 Effective 10/06/2014: Reference Range ChangeNew: Male 5-275 Previous: Male 22-322 Female 5-275 Female 10-291PLASMA FREE [id number] 10:28:00 Test Item Value Reference Range Comments HEMOGLOBIN PLASMA (BEAKER) (test nwbv=8906) < mg/dl 0.0-30.0 [id number] 10:23:00 Test Item Value Reference Range Comments PREALBUMIN (BEAKER) (test rgqo=341) 18 mg/dL 14-45 IRON, TIBC, % SAT. (WITHOUT FERRITIN)2017-03-16 10:23:00 Test Item Value Reference Range Comments IRON (BEAKER) (test gdoe=942) 52 ug/dL 40-160 TOTAL IRON BINDING CAPACITY (BEAKER) (test 413 ug/dL 250-450 obvx=923) IRON % SATURATION (2) (BEAKER) (test wggh=3233) 13 % 20-55 [id number] 10:22:00 Test Item Value Reference Range Comments MAGNESIUM (BEAKER) (test lmbz=987) 1.8 mg/dL 1.6-2.6 BASIC METABOLIC [id number] 10:22:00 Test Item Value Reference Range Comments SODIUM (BEAKER) (test 132 meq/L 136-145 wgzy=415) POTASSIUM (BEAKER) (test 4.5 meq/L 3.5-5.1 aifv=494) CHLORIDE (BEAKER) (test 97 meq/L 98-107 erip=045) CO2 (BEAKER) (test 25 meq/L 22-29 dyrx=392) BLOOD UREA NITROGEN 28 mg/dL 7-21 (BEAKER) (test zzds=627) CREATININE (BEAKER) (test 1.40 mg/dL 0.57-1.25 zlev=824) GLUCOSE RANDOM (BEAKER) 278 mg/dL 70-105 (test kjuk=855) CALCIUM (BEAKER) (test 9.1 mg/dL 8.4-10.2 mwpi=120) EGFR (BEAKER) (test 53 mL/min/1.73 sq m ESTIMATED GFR IS NOT egdo=2969) ACCURATE CREATININE CLEARANCE IN PREDICTING GLOMERULAR FILTRATION RATE. ESTIMATED GFR IS NOT APPLICABLE FOR DIALYSIS PATIENTS. LIPID [id number] 10:22:00 Test Item Value Reference Range Comments TRIGLYCERIDES (BEAKER) (test xbmg=137) 227 mg/dL CHOLESTEROL (BEAKER) (test gagu=811) 174 mg/dL HDL CHOLESTEROL (BEAKER) (test otfw=795) 32 mg/dL LDL CHOLESTEROL CALCULATED (BEAKER) (test 97 mg/dL fsxv=407) Triglyceride Reference Range: Low Risk <150 Borderline 150- 199 High Risk 200-499 Very High Risk >=500Cholesterol Reference Range: Low Risk <200 Borderline 200-239 High Risk > 240HDL Cholesterol Reference Range: Low Risk >=60 High Risk <40LDL Cholesterol Reference Range: Optimal <100 Near Optimal 100-129 Borderline 130-159 High 160-189 Very High >=190HEPATIC FUNCTION [id number] 10:22:00 Test Item Value Reference Range Comments TOTAL PROTEIN (BEAKER) (test agwm=439) 7.4 gm/dL 6.0-8.3 ALBUMIN (BEAKER) (test lctp=6829) 3.5 g/dL 3.5-5.0 BILIRUBIN TOTAL (BEAKER) (test lyyw=599) 0.4 mg/dL 0.2-1.2 BILIRUBIN DIRECT (BEAKER) (test dmbs=219) 0.2 mg/dL 0.1-0.5 ALKALINE PHOSPHATASE (BEAKER) (test dllj=261) 126 U/L 40-150 AST (SGOT) (BEAKER) (test dngw=608) 23 U/L 5-34 ALT (SGPT) (BEAKER) (test rhfi=937) 33 U/L 6-55 LACTATE DEHYDROGENASE (LDH)2017-03-16 10:22:00 Test Item Value Reference Range Comments LACTATE DEHYDROGENASE (BEAKER) (test wbar=493) 274 U/L 125-220 PROTHROMBIN [id number] 10:12:00 Test Item Value Reference Range Comments PROTIME (BEAKER) (test kbki=135) 20.8 seconds 11.7-14.7 INR (BEAKER) (test phhh=681) 1.8 <=5.9 RECOMMENDED COUMADIN/WARFARIN INR THERAPY RANGESSTANDARD DOSE: 2.0 - 3.0 Includes: PROPHYLAXIS forvenous thrombosis, systemic embolization; TREATMENT for venous thrombosis and/or pulmonary embolus.HIGH RISK: Target INR is 2.5-3.5 for patients with mechanical heart valves.CBC W/PLT COUNT & AUTO [id number] 10:06:00 Test Item Value Reference Range Comments WHITE BLOOD CELL COUNT (BEAKER) (test mlzq=658) 8.1 K/ L 4.0-10.0 RED BLOOD CELL COUNT (BEAKER) (test tqap=269) 4.55 M/ L 4.20-5.80 HEMOGLOBIN (BEAKER) (test nroa=134) 12.3 GM/DL 13.0-16.8 HEMATOCRIT (BEAKER) (test tfgi=455) 36.9 % 40.0-50.0 MEAN CORPUSCULAR VOLUME (BEAKER) (test etaz=794) 81.2 fL 82.0-98.0 MEAN CORPUSCULAR HEMOGLOBIN (BEAKER) (test 26.9 pg 27.0-33.0 obxp=399) MEAN CORPUSCULAR HEMOGLOBIN CONC (BEAKER) (test 33.2 GM/DL 32.0-36.0 irva=246) RED CELL DISTRIBUTION WIDTH (BEAKER) (test 15.1 % 10.3-14.2 qmam=338) PLATELET COUNT (BEAKER) (test upbb=255) 171 K/CU MM 150-430 MEAN PLATELET VOLUME (BEAKER) (test yctu=094) 8.4 fL 6.5-10.5 NUCLEATED RED BLOOD CELLS (BEAKER) (test 0 /100 WBC 0-0 iggn=924) NEUTROPHILS RELATIVE PERCENT (BEAKER) (test 61 % dhid=980) LYMPHOCYTES RELATIVE PERCENT (BEAKER) (test 29 % zbnm=312) MONOCYTES RELATIVE PERCENT (BEAKER) (test 8 % yoab=589) EOSINOPHILS RELATIVE PERCENT (BEAKER) (test 2 % vlgs=941) BASOPHILS RELATIVE PERCENT (BEAKER) (test 1 % kxpz=943) NEUTROPHILS ABSOLUTE COUNT (BEAKER) (test 4.98 K/ L 1.80-8.00 wami=479) LYMPHOCYTES ABSOLUTE COUNT (BEAKER) (test 2.32 K/ L 1.48-4.50 ldxf=096) MONOCYTES ABSOLUTE COUNT (BEAKER) (test 0.62 K/ L 0.00-1.30 gkjv=519) EOSINOPHILS ABSOLUTE COUNT (BEAKER) (test 0.15 K/ L 0.00-0.50 nmxo=092) BASOPHILS ABSOLUTE COUNT (BEAKER) (test 0.05 K/ L 0.00-0.20 bgez=746) [id number] 10:31:00 Test Item Value Reference Range Comments PREALBUMIN (BEAKER) (test todw=351) 17 mg/dL 14-45 IRON, TIBC, % SAT. (WITHOUT FERRITIN)2017-02-02 10:31:00 Test Item Value Reference Range Comments IRON (BEAKER) (test sziv=290) 271 ug/dL 40-160 TOTAL IRON BINDING CAPACITY (BEAKER) (test 351 ug/dL 250-450 xfvo=647) IRON % SATURATION (2) (BEAKER) (test iggw=4362) 77 % 20-55 [id number] 10:24:00 Test Item Value Reference Range Comments FERRITIN (BEAKER) (test hvdr=309) 45 ng/mL 5-275 Effective 10/06/2014: Reference Range ChangeNew: Male 5-275 Previous: Male 22-322 Female 5-275 Female [id number] 10:05: 00 Test Item Value Reference Range Comments MAGNESIUM (BEAKER) (test serj=945) 1.7 mg/dL 1.6-2.6 BASIC METABOLIC [id number] 10:05:00 Test Item Value Reference Range Comments SODIUM (BEAKER) (test 137 meq/L 136-145 ftwa=944) POTASSIUM (BEAKER) (test 3.6 meq/L 3.5-5.1 sklv=918) CHLORIDE (BEAKER) (test 98 meq/L 98-107 yuhe=486) CO2 (BEAKER) (test 29 meq/L 22-29 nfjx=230) BLOOD UREA NITROGEN 16 mg/dL 7-21 (BEAKER) (test mwhi=879) CREATININE (BEAKER) (test 1.31 mg/dL 0.57-1.25 nggn=738) GLUCOSE RANDOM (BEAKER) 284 mg/dL 70-105 (test uweb=136) CALCIUM (BEAKER) (test 8.7 mg/dL 8.4-10.2 ejoq=537) EGFR (BEAKER) (test 57 mL/min/1.73 sq m ESTIMATED GFR IS NOT evpv=3570) ACCURATE CREATININE CLEARANCE IN PREDICTING GLOMERULAR FILTRATION RATE. ESTIMATED GFR IS NOT APPLICABLE FOR DIALYSIS PATIENTS. HEPATIC FUNCTION [id number] 10:05:00 Test Item Value Reference Range Comments TOTAL PROTEIN (BEAKER) (test rizm=296) 7.4 gm/dL 6.0-8.3 ALBUMIN (BEAKER) (test ffmv=2232) 3.6 g/dL 3.5-5.0 BILIRUBIN TOTAL (BEAKER) (test oita=833) 0.6 mg/dL 0.2-1.2 BILIRUBIN DIRECT (BEAKER) (test nnog=166) 0.3 mg/dL 0.1-0.5 ALKALINE PHOSPHATASE (BEAKER) (test irfv=466) 124 U/L 40-150 AST (SGOT) (BEAKER) (test actq=626) 24 U/L 5-34 ALT (SGPT) (BEAKER) (test ncyw=222) 37 U/L 6-55 LACTATE DEHYDROGENASE (LDH)2017-02-02 10:05:00 Test Item Value Reference Range Comments LACTATE DEHYDROGENASE (BEAKER) (test jxat=054) 258 U/L 125-220 PROTHROMBIN [id number] 10:01:00 Test Item Value Reference Range Comments PROTIME (BEAKER) (test kvoi=329) 19.9 seconds 11.7-14.7 INR (BEAKER) (test zijj=732) 1.7 <=5.9 RECOMMENDED COUMADIN/WARFARIN INR THERAPY RANGESSTANDARD DOSE: 2.0 - 3.0 Includes: PROPHYLAXIS forvenous thrombosis, systemic embolization; TREATMENT for venous thrombosis and/or pulmonary embolus.HIGH RISK: Target INR is 2.5-3.5 for patients with mechanical heart valves.CBC W/PLT COUNT & AUTO [id number] 09:49:00 Test Item Value Reference Range Comments WHITE BLOOD CELL COUNT (BEAKER) (test rnfa=101) 7.1 K/ L 4.0-10.0 RED BLOOD CELL COUNT (BEAKER) (test hatd=360) 4.41 M/ L 4.20-5.80 HEMOGLOBIN (BEAKER) (test ntjq=208) 12.6 GM/DL 13.0-16.8 HEMATOCRIT (BEAKER) (test ixcx=066) 39.9 % 40.0-50.0 MEAN CORPUSCULAR VOLUME (BEAKER) (test nwcx=212) 90.4 fL 82.0-98.0 MEAN CORPUSCULAR HEMOGLOBIN (BEAKER) (test 28.6 pg 27.0-33.0 irei=092) MEAN CORPUSCULAR HEMOGLOBIN CONC (BEAKER) (test 31.6 GM/DL 32.0-36.0 zynw=040) RED CELL DISTRIBUTION WIDTH (BEAKER) (test 15.3 % 10.3-14.2 lnhc=600) PLATELET COUNT (BEAKER) (test yags=653) 188 K/CU MM 150-430 MEAN PLATELET VOLUME (BEAKER) (test vupq=357) 7.7 fL 6.5-10.5 NUCLEATED RED BLOOD CELLS (BEAKER) (test 0 /100 WBC 0-0 wnjr=132) NEUTROPHILS RELATIVE PERCENT (BEAKER) (test 68 % xocj=928) LYMPHOCYTES RELATIVE PERCENT (BEAKER) (test 22 % atrm=744) MONOCYTES RELATIVE PERCENT (BEAKER) (test 8 % cujh=694) EOSINOPHILS RELATIVE PERCENT (BEAKER) (test 1 % hdzx=432) BASOPHILS RELATIVE PERCENT (BEAKER) (test 0 % pugb=014) NEUTROPHILS ABSOLUTE COUNT (BEAKER) (test 4.82 K/ L 1.80-8.00 tfta=666) LYMPHOCYTES ABSOLUTE COUNT (BEAKER) (test 1.54 K/ L 1.48-4.50 umir=649) MONOCYTES ABSOLUTE COUNT (BEAKER) (test 0.60 K/ L 0.00-1.30 hreq=422) EOSINOPHILS ABSOLUTE COUNT (BEAKER) (test 0.11 K/ L 0.00-0.50 fepy=531) BASOPHILS ABSOLUTE COUNT (BEAKER) (test 0.02 K/ L 0.00-0.20 rcfj=850) 0.00POCT-GLUCOSE [id number] 09:10:00 Test Item Value Reference Range Comments POC-GLUCOSE METER (BEAKER) 221 mg/dL 70-110 TESTED AT [facility] [address] [facility] (test nbda=5518) [place] [address] B-TYPE NATRIURETIC FACTOR (BNP)2017-01-19 02:46:00 Test Item Value Reference Range Comments B-TYPE NATRIURETIC PEPTIDE (BEAKER) (test 254 pg/mL 0-100 hujq=189) [id number] 02:43:00 Test Item Value Reference Range Comments LIPASE (BEAKER) (test ftyx=457) 19 U/L 8-78 [id number] 02:43:00 Test Item Value Reference Range Comments AMYLASE (BEAKER) (test gwgv=760) 15 U/L 25-125 BASIC METABOLIC [id number] 02:43:00 Test Item Value Reference Range Comments SODIUM (BEAKER) (test 133 meq/L 136-145 cplv=139) POTASSIUM (BEAKER) (test 4.2 meq/L 3.5-5.1 xpjf=535) CHLORIDE (BEAKER) (test 94 meq/L 98-107 ccll=977) CO2 (BEAKER) (test 29 meq/L 22-29 cmsh=244) BLOOD UREA NITROGEN 18 mg/dL 7-21 (BEAKER) (test gamk=878) CREATININE (BEAKER) (test 1.25 mg/dL 0.57-1.25 xmvm=230) GLUCOSE RANDOM (BEAKER) 198 mg/dL 70-105 (test sayf=433) CALCIUM (BEAKER) (test 8.9 mg/dL 8.4-10.2 zbiz=563) EGFR (BEAKER) (test 60 mL/min/1.73 sq m ESTIMATED GFR IS NOT noaj=0519) ACCURATE CREATININE CLEARANCE IN PREDICTING GLOMERULAR FILTRATION RATE. ESTIMATED GFR IS NOT APPLICABLE FOR DIALYSIS PATIENTS. HEPATIC FUNCTION [id number] 02:43:00 Test Item Value Reference Range Comments TOTAL PROTEIN (BEAKER) (test hqhj=757) 6.3 gm/dL 6.0-8.3 ALBUMIN (BEAKER) (test miyg=3674) 3.0 g/dL 3.5-5.0 BILIRUBIN TOTAL (BEAKER) (test zyaa=462) 0.6 mg/dL 0.2-1.2 BILIRUBIN DIRECT (BEAKER) (test fvdj=779) 0.3 mg/dL 0.1-0.5 ALKALINE PHOSPHATASE (BEAKER) (test tnun=970) 100 U/L 40-150 AST (SGOT) (BEAKER) (test gunz=884) 31 U/L 5-34 ALT (SGPT) (BEAKER) (test heiw=948) 27 U/L 6-55 PROTHROMBIN [id number] 02:28:00 Test Item Value Reference Range Comments PROTIME (BEAKER) (test kmcx=036) 17.0 seconds 11.7-14.7 INR (BEAKER) (test jmgm=021) 1.4 <=5.9 RECOMMENDED COUMADIN/WARFARIN INR THERAPY RANGESSTANDARD DOSE: 2.0 - 3.0 Includes: PROPHYLAXIS forvenous thrombosis, systemic embolization; TREATMENT for venous thrombosis and/or pulmonary embolus.HIGH RISK: Target INR is 2.5-3.5 for patients with mechanical heart valves.[id number] 02:25:00 Test Item Value Reference Range Comments PARTIAL THROMBOPLASTIN TIME (BEAKER) (test 61.3 seconds 22.5-36.0 fwuh=601) HEMOGLOBIN AND [id number] 02:22:00 Test Item Value Reference Range Comments HEMOGLOBIN (BEAKER) (test ilmj=635) 9.3 GM/DL 13.0-16.8 HEMATOCRIT (BEAKER) (test owyx=976) 27.2 % 40.0-50.0 POCT-GLUCOSE [id number] 20:47:00 Test Item Value Reference Range Comments POC-GLUCOSE METER (BEAKER) 171 mg/dL 70-110 TESTED AT [address] (test rbqb=1930) [place] [address] [id number] 19:02:00 Test Item Value Reference Range Comments PARTIAL THROMBOPLASTIN TIME (BEAKER) (test 74.9 seconds 22.5-36.0 dywh=561) POCT-GLUCOSE [id number] 16:58:00 Test Item Value Reference Range Comments POC-GLUCOSE METER (BEAKER) 214 mg/dL 70-110 TESTED AT [address] (test btck=4569) [place] [id number] POCT-GLUCOSE [id number] 12:21:00 Test Item Value Reference Range Comments POC-GLUCOSE METER (BEAKER) 193 mg/dL 70-110 TESTED AT [address] (test zudr=1058) [place] [address] [id number] 11:17:00 Test Item Value Reference Range Comments PARTIAL THROMBOPLASTIN TIME (BEAKER) (test 91.3 seconds 22.5-36.0 shuk=086) POCT-GLUCOSE [id number] 07:32:00 Test Item Value Reference Range Comments POC-GLUCOSE METER (BEAKER) 293 mg/dL 70-110 [facility] [address] [facility] (test vhlt=2785) [facility] [address] HEMOGLOBIN AND [id number] 04:16:00 Test Item Value Reference Range Comments HEMOGLOBIN (BEAKER) (test dcuo=517) 9.4 GM/DL 13.0-16.8 HEMATOCRIT (BEAKER) (test ahrr=716) 26.9 % 40.0-50.0 BASIC METABOLIC [id number] 03:51:00 Test Item Value Reference Range Comments SODIUM (BEAKER) (test 133 meq/L 136-145 mwoe=224) POTASSIUM (BEAKER) (test 4.0 meq/L 3.5-5.1 dnuy=793) CHLORIDE (BEAKER) (test 98 meq/L 98-107 lfgg=633) CO2 (BEAKER) (test 26 meq/L 22-29 onse=224) BLOOD UREA NITROGEN 23 mg/dL 7-21 (BEAKER) (test jwbk=798) CREATININE (BEAKER) (test 1.29 mg/dL 0.57-1.25 wpge=808) GLUCOSE RANDOM (BEAKER) 226 mg/dL 70-105 (test ghsr=493) CALCIUM (BEAKER) (test 7.8 mg/dL 8.4-10.2 fpww=373) EGFR (BEAKER) (test 58 mL/min/1.73 sq m ESTIMATED GFR IS NOT ytko=8149) ACCURATE CREATININE CLEARANCE IN PREDICTING GLOMERULAR FILTRATION RATE. ESTIMATED GFR IS NOT APPLICABLE FOR DIALYSIS PATIENTS. [id number] 03:44:00 Test Item Value Reference Range Comments PARTIAL THROMBOPLASTIN TIME (BEAKER) (test 91.0 seconds 22.5-36.0 kcmc=689) PROTHROMBIN [id number] 03:42:00 Test Item Value Reference Range Comments PROTIME (BEAKER) (test iqxl=661) 15.2 seconds 11.7-14.7 INR (BEAKER) (test qmyy=114) 1.2 <=5.9 RECOMMENDED COUMADIN/WARFARIN INR THERAPY RANGESSTANDARD DOSE: 2.0 - 3.0 Includes: PROPHYLAXIS forvenous thrombosis, systemic embolization; TREATMENT for venous thrombosis and/or pulmonary embolus.HIGH RISK: Target INR is 2.5-3.5 for patients with mechanical heart valves.POCT-GLUCOSE [id number] 22:02:00 Test Item Value Reference Range Comments POC-GLUCOSE METER (BEAKER) 270 mg/dL 70-110 TESTED AT [address] (test ryjb=5859) [place] [address] [id number] 19:30:00 Test Item Value Reference Range Comments PARTIAL THROMBOPLASTIN TIME (BEAKER) (test 99.9 seconds 22.5-36.0 dcne=002) POCT-GLUCOSE [id number] 16:39:00 Test Item Value Reference Range Comments POC-GLUCOSE METER (BEAKER) 297 mg/dL 70-110 TESTED AT [address] (test hosz=4985) [place] [address] [id number] 13:19:00 Test Item Value Reference Range Comments PARTIAL THROMBOPLASTIN TIME (BEAKER) (test 70.5 seconds 22.5-36.0 aguj=221) POCT-GLUCOSE [id number] 12:29:00 Test Item Value Reference Range Comments POC-GLUCOSE METER (BEAKER) 236 mg/dL 70-110 TESTED AT [address] (test qnhy=4575) [place] [address] POCT-GLUCOSE [id number] 07:22:00 Test Item Value Reference Range Comments POC-GLUCOSE METER (BEAKER) 207 mg/dL 70-110 TESTED AT [address] (test jodg=2216) [place] [address] CBC W/PLT COUNT & AUTO [id number] 06:41:00 Test Item Value Reference Range Comments WHITE BLOOD CELL COUNT (BEAKER) (test kykn=865) 7.7 K/ L 4.0-10.0 RED BLOOD CELL COUNT (BEAKER) (test xsdk=348) 3.00 M/ L 4.20-5.80 HEMOGLOBIN (BEAKER) (test eddz=830) 9.2 GM/DL 13.0-16.8 HEMATOCRIT (BEAKER) (test bgjc=651) 26.7 % 40.0-50.0 MEAN CORPUSCULAR VOLUME (BEAKER) (test msho=749) 89.1 fL 82.0-98.0 MEAN CORPUSCULAR HEMOGLOBIN (BEAKER) (test 30.8 pg 27.0-33.0 slxy=678) MEAN CORPUSCULAR HEMOGLOBIN CONC (BEAKER) (test 34.6 GM/DL 32.0-36.0 fvwe=534) RED CELL DISTRIBUTION WIDTH (BEAKER) (test 17.6 % 10.3-14.2 bmid=623) PLATELET COUNT (BEAKER) (test cxry=933) 168 K/CU MM 150-430 MEAN PLATELET VOLUME (BEAKER) (test iuzi=535) 8.4 fL 6.5-10.5 NUCLEATED RED BLOOD CELLS (BEAKER) (test 0 /100 WBC 0-0 myww=773) NEUTROPHILS RELATIVE PERCENT (BEAKER) (test 79 % ehsl=583) LYMPHOCYTES RELATIVE PERCENT (BEAKER) (test 11 % lbek=063) MONOCYTES RELATIVE PERCENT (BEAKER) (test 8 % lsjq=851) EOSINOPHILS RELATIVE PERCENT (BEAKER) (test 1 % akgs=299) BASOPHILS RELATIVE PERCENT (BEAKER) (test 0 % wmad=947) NEUTROPHILS ABSOLUTE COUNT (BEAKER) (test 6.09 K/ L 1.80-8.00 ecxa=143) LYMPHOCYTES ABSOLUTE COUNT (BEAKER) (test 0.86 K/ L 1.48-4.50 xyjb=909) MONOCYTES ABSOLUTE COUNT (BEAKER) (test 0.60 K/ L 0.00-1.30 bder=396) EOSINOPHILS ABSOLUTE COUNT (BEAKER) (test 0.09 K/ L 0.00-0.50 gukt=919) BASOPHILS ABSOLUTE COUNT (BEAKER) (test 0.03 K/ L 0.00-0.20 qyzw=434) 0[facility]00[facility] METABOLIC [id number] 06:31:00 Test Item Value Reference Range Comments SODIUM (BEAKER) (test 133 meq/L 136-145 yhon=681) POTASSIUM (BEAKER) (test 4.1 meq/L 3.5-5.1 nney=641) CHLORIDE (BEAKER) (test 100 meq/L 98-107 jgtj=720) CO2 (BEAKER) (test 24 meq/L 22-29 dbuu=899) BLOOD UREA NITROGEN 26 mg/dL 7-21 (BEAKER) (test ugyu=411) CREATININE (BEAKER) (test 1.26 mg/dL 0.57-1.25 ncdn=052) GLUCOSE RANDOM (BEAKER) 221 mg/dL 70-105 (test cdzn=088) CALCIUM (BEAKER) (test 8.1 mg/dL 8.4-10.2 bshg=901) EGFR (BEAKER) (test 60 mL/min/1.73 sq m ESTIMATED GFR IS NOT vhos=7256) ACCURATE CREATININE CLEARANCE IN PREDICTING GLOMERULAR FILTRATION RATE. ESTIMATED GFR IS NOT APPLICABLE FOR DIALYSIS PATIENTS. [id number] 06:20:00 Test Item Value Reference Range Comments PARTIAL THROMBOPLASTIN TIME (BEAKER) (test 33.9 seconds 22.5-36.0 ljos=059) PROTHROMBIN [id number] 06:19:00 Test Item Value Reference Range Comments PROTIME (BEAKER) (test bplb=351) 14.6 seconds 11.7-14.7 INR (BEAKER) (test lrdu=679) 1.2 <=5.9 RECOMMENDED COUMADIN/WARFARIN INR THERAPY RANGESSTANDARD DOSE: 2.0 - 3.0 Includes: PROPHYLAXIS forvenous thrombosis, systemic embolization; TREATMENT for venous thrombosis and/or pulmonary embolus.HIGH RISK: Target INR is 2.5-3.5 for patients with mechanical heart valves.POCT-GLUCOSE [id number] 22:35:00 Test Item Value Reference Range Comments POC-GLUCOSE METER (BEAKER) 239 mg/dL 70-110 TESTED AT [address] (test nljv=3823) [place] [address] [id number] 20:55:00 Test Item Value Reference Range Comments PARTIAL THROMBOPLASTIN TIME (BEAKER) (test 28.7 seconds 22.5-36.0 bdcj=800) POCT-GLUCOSE [id number] 17:07:00 Test Item Value Reference Range Comments POC-GLUCOSE METER (BEAKER) 346 mg/dL 70-110 TESTED AT [address] (test hfml=9413) [facility] [address] POCT-GLUCOSE [id number] 17:00:00 Test Item Value Reference Range Comments POC-GLUCOSE METER (BEAKER) 306 mg/dL 70-110 TESTED AT [address] (test inci=4040) [facility] [address] POCT-GLUCOSE [id number] 12:11:00 Test Item Value Reference Range Comments POC-GLUCOSE METER (BEAKER) 268 mg/dL 70-110 TESTED AT [facility] [address] [facility] (test crru=9059) [facility] [address] POCT-GLUCOSE [id number] 08:17:00 Test Item Value Reference Range Comments POC-GLUCOSE METER (BEAKER) 276 mg/dL 70-110 TESTED AT [place] [id number] [facility] (test vzju=7478) [facility] [address] CBC W/PLT COUNT & AUTO [id number] 06:10:00 Test Item Value Reference Range Comments WHITE BLOOD CELL COUNT (BEAKER) (test vvsg=816) 6.9 K/ L 4.0-10.0 RED BLOOD CELL COUNT (BEAKER) (test bszz=548) 3.03 M/ L 4.20-5.80 HEMOGLOBIN (BEAKER) (test cayo=042) 9.3 GM/DL 13.0-16.8 HEMATOCRIT (BEAKER) (test vtso=656) 26.8 % 40.0-50.0 MEAN CORPUSCULAR VOLUME (BEAKER) (test uqoe=375) 88.7 fL 82.0-98.0 MEAN CORPUSCULAR HEMOGLOBIN (BEAKER) (test 30.8 pg 27.0-33.0 zdfs=317) MEAN CORPUSCULAR HEMOGLOBIN CONC (BEAKER) (test 34.7 GM/DL 32.0-36.0 levl=332) RED CELL DISTRIBUTION WIDTH (BEAKER) (test 16.5 % 10.3-14.2 glfa=525) PLATELET COUNT (BEAKER) (test xyak=675) 197 K/CU MM 150-430 MEAN PLATELET VOLUME (BEAKER) (test ztsh=087) 8.5 fL 6.5-10.5 NUCLEATED RED BLOOD CELLS (BEAKER) (test 0 /100 WBC 0-0 bnst=315) NEUTROPHILS RELATIVE PERCENT (BEAKER) (test 66 % phuu=251) LYMPHOCYTES RELATIVE PERCENT (BEAKER) (test 24 % eagw=007) MONOCYTES RELATIVE PERCENT (BEAKER) (test 7 % eiqz=485) EOSINOPHILS RELATIVE PERCENT (BEAKER) (test 2 % nqmo=730) BASOPHILS RELATIVE PERCENT (BEAKER) (test 1 % ulin=965) NEUTROPHILS ABSOLUTE COUNT (BEAKER) (test 4.52 K/ L 1.80-8.00 wowf=768) LYMPHOCYTES ABSOLUTE COUNT (BEAKER) (test 1.64 K/ L 1.48-4.50 ekth=534) MONOCYTES ABSOLUTE COUNT (BEAKER) (test 0.50 K/ L 0.00-1.30 jblj=092) EOSINOPHILS ABSOLUTE COUNT (BEAKER) (test 0.15 K/ L 0.00-0.50 ovue=686) BASOPHILS ABSOLUTE COUNT (BEAKER) (test 0.05 K/ L 0.00-0.20 dzux=186) [id number] 06:03:00 Test Item Value Reference Range Comments MAGNESIUM (BEAKER) (test yxhv=245) 1.7 mg/dL 1.6-2.6 BASIC METABOLIC [id number] 06:03:00 Test Item Value Reference Range Comments SODIUM (BEAKER) (test 135 meq/L 136-145 gyti=841) POTASSIUM (BEAKER) (test 4.1 meq/L 3.5-5.1 mkui=885) CHLORIDE (BEAKER) (test 104 meq/L 98-107 bcrv=078) CO2 (BEAKER) (test 22 meq/L 22-29 szvm=106) BLOOD UREA NITROGEN 30 mg/dL 7-21 (BEAKER) (test ikph=833) CREATININE (BEAKER) (test 1.17 mg/dL 0.57-1.25 bnbt=808) GLUCOSE RANDOM (BEAKER) 266 mg/dL 70-105 (test zjfm=268) CALCIUM (BEAKER) (test 8.4 mg/dL 8.4-10.2 uwns=574) EGFR (BEAKER) (test 65 mL/min/1.73 sq m ESTIMATED GFR IS NOT nkkd=6272) ACCURATE CREATININE CLEARANCE IN PREDICTING GLOMERULAR FILTRATION RATE. ESTIMATED GFR IS NOT APPLICABLE FOR DIALYSIS PATIENTS. LACTATE DEHYDROGENASE (LDH)2017-01-16 06:03:00 Test Item Value Reference Range Comments LACTATE DEHYDROGENASE (BEAKER) (test mgdb=084) 233 U/L 125-220 PROTHROMBIN [id number] 05:44:00 Test Item Value Reference Range Comments PROTIME (BEAKER) (test mbce=774) 16.0 seconds 11.7-14.7 INR (BEAKER) (test cnfo=726) 1.3 <=5.9 RECOMMENDED COUMADIN/WARFARIN INR THERAPY RANGESSTANDARD DOSE: 2.0 - 3.0 Includes: PROPHYLAXIS forvenous thrombosis, systemic embolization; TREATMENT for venous thrombosis and/or pulmonary embolus.HIGH RISK: Target INR is 2.5-3.5 for patients with mechanical heart valves.POCT-GLUCOSE [id number] 21:29:00 Test Item Value Reference Range Comments POC-GLUCOSE METER (BEAKER) 192 mg/dL 70-110 TESTED AT [address] (test xevj=4481) [place] [address] POCT-GLUCOSE [id number] 17:50:00 Test Item Value Reference Range Comments POC-GLUCOSE METER (BEAKER) 267 mg/dL 70-110 TESTED AT [address] (test ebxm=3438) [place] [address] POCT-GLUCOSE [id number] 12:22:00 Test Item Value Reference Range Comments POC-GLUCOSE METER (BEAKER) 240 mg/dL 70-110 TESTED AT [address] (test wsga=1444) [place] [id number] POCT-GLUCOSE [id number] 08:02:00 Test Item Value Reference Range Comments POC-GLUCOSE METER (BEAKER) 200 mg/dL 70-110 TESTED AT [address] (test rtvq=1728) [place] [address] [id number] 06:06:00 Test Item Value Reference Range Comments MAGNESIUM (BEAKER) (test udik=268) 2.1 mg/dL 1.6-2.6 BASIC METABOLIC [id number] 06:06:00 Test Item Value Reference Range Comments SODIUM (BEAKER) (test 138 meq/L 136-145 zkms=676) POTASSIUM (BEAKER) (test 5.1 meq/L 3.5-5.1 vesi=878) CHLORIDE (BEAKER) (test 104 meq/L 98-107 zjej=390) CO2 (BEAKER) (test 27 meq/L 22-29 rcmh=854) BLOOD UREA NITROGEN 37 mg/dL 7-21 (BEAKER) (test tegf=359) CREATININE (BEAKER) (test 1.14 mg/dL 0.57-1.25 wvuw=826) GLUCOSE RANDOM (BEAKER) 168 mg/dL 70-105 (test wjjy=223) CALCIUM (BEAKER) (test 8.6 mg/dL 8.4-10.2 ufah=211) EGFR (BEAKER) (test 67 mL/min/1.73 sq m ESTIMATED GFR IS NOT qnje=4894) ACCURATE CREATININE CLEARANCE IN PREDICTING GLOMERULAR FILTRATION RATE. ESTIMATED GFR IS NOT APPLICABLE FOR DIALYSIS PATIENTS. LACTATE DEHYDROGENASE (LDH)2017-01-15 06:06:00 Test Item Value Reference Range Comments LACTATE DEHYDROGENASE (BEAKER) (test jdaw=350) 205 U/L 125-220 CBC W/PLT COUNT & AUTO [id number] 05:45:00 Test Item Value Reference Range Comments WHITE BLOOD CELL COUNT (BEAKER) (test fkfo=862) 8.3 K/ L 4.0-10.0 RED BLOOD CELL COUNT (BEAKER) (test xwpb=943) 3.15 M/ L 4.20-5.80 HEMOGLOBIN (BEAKER) (test bheg=366) 9.6 GM/DL 13.0-16.8 HEMATOCRIT (BEAKER) (test jrsd=922) 27.5 % 40.0-50.0 MEAN CORPUSCULAR VOLUME (BEAKER) (test mjye=032) 87.2 fL 82.0-98.0 MEAN CORPUSCULAR HEMOGLOBIN (BEAKER) (test 30.6 pg 27.0-33.0 mmjl=138) MEAN CORPUSCULAR HEMOGLOBIN CONC (BEAKER) (test 35.1 GM/DL 32.0-36.0 btwo=185) RED CELL DISTRIBUTION WIDTH (BEAKER) (test 17.0 % 10.3-14.2 szie=606) PLATELET COUNT (BEAKER) (test ngtr=001) 180 K/CU MM 150-430 MEAN PLATELET VOLUME (BEAKER) (test ouef=858) 8.3 fL 6.5-10.5 NUCLEATED RED BLOOD CELLS (BEAKER) (test 0 /100 WBC 0-0 pslr=085) NEUTROPHILS RELATIVE PERCENT (BEAKER) (test 56 % qrmh=748) LYMPHOCYTES RELATIVE PERCENT (BEAKER) (test 34 % kggi=460) MONOCYTES RELATIVE PERCENT (BEAKER) (test 7 % qkuf=854) EOSINOPHILS RELATIVE PERCENT (BEAKER) (test 2 % lkto=201) BASOPHILS RELATIVE PERCENT (BEAKER) (test 1 % wvie=138) NEUTROPHILS ABSOLUTE COUNT (BEAKER) (test 4.66 K/ L 1.80-8.00 sbds=007) LYMPHOCYTES ABSOLUTE COUNT (BEAKER) (test 2.82 K/ L 1.48-4.50 qrim=063) MONOCYTES ABSOLUTE COUNT (BEAKER) (test 0.61 K/ L 0.00-1.30 scro=850) EOSINOPHILS ABSOLUTE COUNT (BEAKER) (test 0.19 K/ L 0.00-0.50 szav=854) BASOPHILS ABSOLUTE COUNT (BEAKER) (test 0.04 K/ L 0.00-0.20 qwnm=997) 0.00PROTHROMBIN [id number] 05:40:00 Test Item Value Reference Range Comments PROTIME (BEAKER) (test eoem=103) 20.4 seconds 11.7-14.7 INR (BEAKER) (test yqhg=006) 1.8 <=5.9 RECOMMENDED COUMADIN/WARFARIN INR THERAPY RANGESSTANDARD DOSE: 2.0 - 3.0 Includes: PROPHYLAXIS forvenous thrombosis, systemic embolization; TREATMENT for venous thrombosis and/or pulmonary embolus.HIGH RISK: Target INR is 2.5-3.5 for patients with mechanical heart valves.POCT-GLUCOSE [id number] 21:35:00 Test Item Value Reference Range Comments POC-GLUCOSE METER (BEAKER) 203 mg/dL 70-110 TESTED AT [facility] [address] [place] [address] (test jgra=8837) [facility] [address] CBC (HEMOGRAM ONLY)2017-01-14 17:58:00 Test Item Value Reference Range Comments WHITE BLOOD CELL COUNT (BEAKER) (test soar=385) 6.6 K/ L 4.0-10.0 RED BLOOD CELL COUNT (BEAKER) (test qrbw=668) 3.30 M/ L 4.20-5.80 HEMOGLOBIN (BEAKER) (test wpze=011) 10.2 GM/DL 13.0-16.8 HEMATOCRIT (BEAKER) (test zipg=763) 28.3 % 40.0-50.0 MEAN CORPUSCULAR VOLUME (BEAKER) (test nxpc=463) 85.9 fL 82.0-98.0 MEAN CORPUSCULAR HEMOGLOBIN (BEAKER) (test 31.0 pg 27.0-33.0 wxyx=935) MEAN CORPUSCULAR HEMOGLOBIN CONC (BEAKER) (test 36.1 GM/DL 32.0-36.0 luec=634) RED CELL DISTRIBUTION WIDTH (BEAKER) (test 16.9 % 10.3-14.2 vuef=604) PLATELET COUNT (BEAKER) (test ezul=819) 176 K/CU MM 150-430 MEAN PLATELET VOLUME (BEAKER) (test tyic=550) 8.6 fL 6.5-10.5 NUCLEATED RED BLOOD CELLS (BEAKER) (test 0 /100 WBC 0-0 doqo=369) 0.00POCT-GLUCOSE [id number] 17:34:00 Test Item Value Reference Range Comments POC-GLUCOSE METER (BEAKER) 310 mg/dL 70-110 TESTED AT [facility] [address] [facility] (test vkkx=7851) [facility] [address] CBC (HEMOGRAM ONLY)2017-01-14 14:39:00 Test Item Value Reference Range Comments WHITE BLOOD CELL COUNT (BEAKER) (test gbob=751) 5.9 K/ L 4.0-10.0 RED BLOOD CELL COUNT (BEAKER) (test jhjc=967) 3.39 M/ L 4.20-5.80 HEMOGLOBIN (BEAKER) (test tgdg=009) 10.7 GM/DL 13.0-16.8 HEMATOCRIT (BEAKER) (test mjpr=946) 29.4 % 40.0-50.0 MEAN CORPUSCULAR VOLUME (BEAKER) (test vpuu=321) 86.8 fL 82.0-98.0 MEAN CORPUSCULAR HEMOGLOBIN (BEAKER) (test 31.6 pg 27.0-33.0 waig=572) MEAN CORPUSCULAR HEMOGLOBIN CONC (BEAKER) (test 36.4 GM/DL 32.0-36.0 fmbb=926) RED CELL DISTRIBUTION WIDTH (BEAKER) (test 15.3 % 10.3-14.2 kcts=728) PLATELET COUNT (BEAKER) (test pqof=780) 190 K/CU MM 150-430 MEAN PLATELET VOLUME (BEAKER) (test arpi=814) 8.3 fL 6.5-10.5 NUCLEATED RED BLOOD CELLS (BEAKER) (test 0 /100 WBC 0-0 idgd=169) POCT-GLUCOSE [id number] 13:02:00 Test Item Value Reference Range Comments POC-GLUCOSE METER (BEAKER) 239 mg/dL 70-110 TESTED AT [facility] [address] [facility] (test suji=8195) [facility] [address] POCT-GLUCOSE [id number] 09:30:00 Test Item Value Reference Range Comments POC-GLUCOSE METER (BEAKER) 303 mg/dL 70-110 TESTED AT [place] [id number] [facility]) (test qype=0597) [facility] [address] POCT-GLUCOSE [id number] 05:39:00 Test Item Value Reference Range Comments POC-GLUCOSE METER (BEAKER) 281 mg/dL 70-110 TESTED AT [place] [id number] [facility]) (test lpok=3447) [facility] [address] [id number] 04:27:00 Test Item Value Reference Range Comments FERRITIN (BEAKER) (test cxsv=332) 40 ng/mL 5-275 Effective 10/06/2014: Reference Range ChangeNew: Male 5-275 Previous: Male 22-322 Female 5-275 Female 10-291LACTATE DEHYDROGENASE (LDH) 2017-01-14 04:17:00 Test Item Value Reference Range Comments LACTATE DEHYDROGENASE (BEAKER) 253 U/L 125-220 Specimen slightly hemolyzed (test rknz=359) [id number] 04:14:00 Test Item Value Reference Range Comments MAGNESIUM (BEAKER) (test 1.8 mg/dL 1.6-2.6 Specimen slightly hemolyzed pdwn=064) BASIC METABOLIC [id number] 04:14:00 Test Item Value Reference Range Comments SODIUM (BEAKER) (test 133 meq/L 136-145 golf=867) POTASSIUM (BEAKER) (test 4.5 meq/L 3.5-5.1 Specimen slightly oncz=990) hemolyzed CHLORIDE (BEAKER) (test 102 meq/L 98-107 bfmy=605) CO2 (BEAKER) (test 23 meq/L 22-29 qyeg=923) BLOOD UREA NITROGEN 37 mg/dL 7-21 (BEAKER) (test bbrp=201) CREATININE (BEAKER) (test 1.21 mg/dL 0.57-1.25 Specimen slightly bmru=723) hemolyzed GLUCOSE RANDOM (BEAKER) 342 mg/dL 70-105 (test kkuj=593) CALCIUM (BEAKER) (test 8.4 mg/dL 8.4-10.2 nlem=618) EGFR (BEAKER) (test 62 mL/min/1.73 sq m ESTIMATED GFR IS NOT wgaz=5570) ACCURATE CREATININE CLEARANCE IN PREDICTING GLOMERULAR FILTRATION RATE. ESTIMATED GFR IS NOT APPLICABLE FOR DIALYSIS PATIENTS. PROTHROMBIN [id number] 04:07:00 Test Item Value Reference Range Comments PROTIME (BEAKER) (test brtc=448) 23.0 seconds 11.7-14.7 INR (BEAKER) (test ijvo=353) 2.0 <=5.9 RECOMMENDED COUMADIN/WARFARIN INR THERAPY RANGESSTANDARD DOSE: 2.0 - 3.0 Includes: PROPHYLAXIS forvenous thrombosis, systemic embolization; TREATMENT for venous thrombosis and/or pulmonary embolus.HIGH RISK: Target INR is 2.5-3.5 for patients with mechanical heart valves.IRON, TIBC, % SAT. (WITHOUT FERRITIN) 2017-01-14 04:06:00 Test Item Value Reference Range Comments IRON (BEAKER) (test cupq=041) 79 ug/dL 40-160 TOTAL IRON BINDING CAPACITY (BEAKER) (test 303 ug/dL 250-450 cepw=995) IRON % SATURATION (2) (BEAKER) (test mugy=4368) 26 % 20-55 CBC (HEMOGRAM ONLY)2017-01-14 03:51:00 Test Item Value Reference Range Comments WHITE BLOOD CELL COUNT (BEAKER) (test akwv=588) 7.0 K/ L 4.0-10.0 RED BLOOD CELL COUNT (BEAKER) (test ekjv=818) 3.41 M/ L 4.20-5.80 HEMOGLOBIN (BEAKER) (test dpjs=612) 10.2 GM/DL 13.0-16.8 HEMATOCRIT (BEAKER) (test ysfu=635) 29.4 % 40.0-50.0 MEAN CORPUSCULAR VOLUME (BEAKER) (test quue=155) 86.3 fL 82.0-98.0 MEAN CORPUSCULAR HEMOGLOBIN (BEAKER) (test 30.0 pg 27.0-33.0 pucf=532) MEAN CORPUSCULAR HEMOGLOBIN CONC (BEAKER) (test 34.8 GM/DL 32.0-36.0 cqyr=949) RED CELL DISTRIBUTION WIDTH (BEAKER) (test 17.1 % 10.3-14.2 vhcd=568) PLATELET COUNT (BEAKER) (test ipso=968) 184 K/CU MM 150-430 MEAN PLATELET VOLUME (BEAKER) (test yylk=717) 8.5 fL 6.5-10.5 NUCLEATED RED BLOOD CELLS (BEAKER) (test 0 /100 WBC 0-0 alig=379) 0.00POCT-GLUCOSE [id number] 21:57:00 Test Item Value Reference Range Comments POC-GLUCOSE METER (BEAKER) 222 mg/dL 70-110 TESTED AT [facility] [address] (test zslm=3489) [place] [address] CBC (HEMOGRAM ONLY)2017-01-13 18:08:00 Test Item Value Reference Range Comments WHITE BLOOD CELL COUNT (BEAKER) (test yoeg=944) 8.4 K/ L 4.0-10.0 RED BLOOD CELL COUNT (BEAKER) (test jbit=366) 3.67 M/ L 4.20-5.80 HEMOGLOBIN (BEAKER) (test cjzb=181) 11.1 GM/DL 13.0-16.8 HEMATOCRIT (BEAKER) (test fvvx=592) 31.7 % 40.0-50.0 MEAN CORPUSCULAR VOLUME (BEAKER) (test opiy=778) 86.4 fL 82.0-98.0 MEAN CORPUSCULAR HEMOGLOBIN (BEAKER) (test 30.4 pg 27.0-33.0 ppip=768) MEAN CORPUSCULAR HEMOGLOBIN CONC (BEAKER) (test 35.2 GM/DL 32.0-36.0 yfjb=325) RED CELL DISTRIBUTION WIDTH (BEAKER) (test 17.0 % 10.3-14.2 bbji=382) PLATELET COUNT (BEAKER) (test bqlt=750) 203 K/CU MM 150-430 MEAN PLATELET VOLUME (BEAKER) (test sahz=018) 8.4 fL 6.5-10.5 NUCLEATED RED BLOOD CELLS (BEAKER) (test 0 /100 WBC 0-0 eqsf=943) 0.00POCT-GLUCOSE [id number] 17:32:00 Test Item Value Reference Range Comments POC-GLUCOSE METER (BEAKER) 347 mg/dL 70-110 Notified KENZIE BARCLAY/TESTED AT [facility] (test cldb=9952) [address] [place] [address] B-TYPE NATRIURETIC FACTOR (BNP)2017-01-13 15:39:00 Test Item Value Reference Range Comments B-TYPE NATRIURETIC PEPTIDE (BEAKER) (test yhyo=006) 53 pg/mL 0-100 LACTATE DEHYDROGENASE (LDH)2017-01-13 15:37:00 Test Item Value Reference Range Comments LACTATE DEHYDROGENASE (BEAKER) (test agsd=641) 290 U/L 125-220 [id number] 13:55:00 Test Item Value Reference Range Comments LIPASE (BEAKER) (test umne=459) 26 U/L 8-78 BASIC METABOLIC [id number] 13:55:00 Test Item Value Reference Range Comments SODIUM (BEAKER) (test 134 meq/L 136-145 wwym=341) POTASSIUM (BEAKER) (test 4.5 meq/L 3.5-5.1 eccq=635) CHLORIDE (BEAKER) (test 101 meq/L 98-107 vzxr=046) CO2 (BEAKER) (test 25 meq/L 22-29 xgjj=857) BLOOD UREA NITROGEN 37 mg/dL 7-21 (BEAKER) (test xmdu=057) CREATININE (BEAKER) (test 1.28 mg/dL 0.57-1.25 cman=414) GLUCOSE RANDOM (BEAKER) 320 mg/dL 70-105 (test auwr=782) CALCIUM (BEAKER) (test 9.0 mg/dL 8.4-10.2 keef=785) EGFR (BEAKER) (test 59 mL/min/1.73 sq m ESTIMATED GFR IS NOT rpeu=3862) ACCURATE CREATININE CLEARANCE IN PREDICTING GLOMERULAR FILTRATION RATE. ESTIMATED GFR IS NOT APPLICABLE FOR DIALYSIS PATIENTS. HEPATIC FUNCTION [id number] 13:55:00 Test Item Value Reference Range Comments TOTAL PROTEIN (BEAKER) (test wqrj=364) 6.4 gm/dL 6.0-8.3 ALBUMIN (BEAKER) (test ofxb=7108) 3.4 g/dL 3.5-5.0 BILIRUBIN TOTAL (BEAKER) (test gyqp=848) 0.5 mg/dL 0.2-1.2 BILIRUBIN DIRECT (BEAKER) (test hyxq=523) 0.2 mg/dL 0.1-0.5 ALKALINE PHOSPHATASE (BEAKER) (test habz=651) 117 U/L 40-150 AST (SGOT) (BEAKER) (test khoh=947) 31 U/L 5-34 ALT (SGPT) (BEAKER) (test danb=579) 41 U/L 6-55 CBC W/PLT COUNT & AUTO [id number] 13:43:00 Test Item Value Reference Range Comments WHITE BLOOD CELL COUNT (BEAKER) (test scxs=736) 9.4 K/ L 4.0-10.0 RED BLOOD CELL COUNT (BEAKER) (test ssit=816) 4.01 M/ L 4.20-5.80 HEMOGLOBIN (BEAKER) (test uuio=635) 11.9 GM/DL 13.0-16.8 HEMATOCRIT (BEAKER) (test dtxk=164) 34.4 % 40.0-50.0 MEAN CORPUSCULAR VOLUME (BEAKER) (test wnrp=411) 85.8 fL 82.0-98.0 MEAN CORPUSCULAR HEMOGLOBIN (BEAKER) (test 29.6 pg 27.0-33.0 wniw=475) MEAN CORPUSCULAR HEMOGLOBIN CONC (BEAKER) (test 34.5 GM/DL 32.0-36.0 yazv=162) RED CELL DISTRIBUTION WIDTH (BEAKER) (test 16.9 % 10.3-14.2 kims=204) PLATELET COUNT (BEAKER) (test drrm=411) 215 K/CU MM 150-430 MEAN PLATELET VOLUME (BEAKER) (test shtd=914) 8.2 fL 6.5-10.5 NUCLEATED RED BLOOD CELLS (BEAKER) (test 0 /100 WBC 0-0 rluo=158) NEUTROPHILS RELATIVE PERCENT (BEAKER) (test 66 % lrxx=667) LYMPHOCYTES RELATIVE PERCENT (BEAKER) (test 23 % jcnk=810) MONOCYTES RELATIVE PERCENT (BEAKER) (test 8 % hpgj=643) EOSINOPHILS RELATIVE PERCENT (BEAKER) (test 2 % ardw=472) BASOPHILS RELATIVE PERCENT (BEAKER) (test 1 % cmlj=878) NEUTROPHILS ABSOLUTE COUNT (BEAKER) (test 6.20 K/ L 1.80-8.00 ohyg=461) LYMPHOCYTES ABSOLUTE COUNT (BEAKER) (test 2.15 K/ L 1.48-4.50 stfx=657) MONOCYTES ABSOLUTE COUNT (BEAKER) (test 0.74 K/ L 0.00-1.30 wsmc=031) EOSINOPHILS ABSOLUTE COUNT (BEAKER) (test 0.21 K/ L 0.00-0.50 sqxg=483) BASOPHILS ABSOLUTE COUNT (BEAKER) (test 0.06 K/ L 0.00-0.20 hvue=993) 0.00PT/[id number] 13:40:00 Test Item Value Reference Range Comments PROTIME (BEAKER) (test ccam=612) 21.9 seconds 11.7-14.7 INR (BEAKER) (test xcrj=082) 1.9 <=5.9 PARTIAL THROMBOPLASTIN TIME (BEAKER) (test 31.4 seconds 22.5-36.0 kexq=233) RECOMMENDED COUMADIN/WARFARIN INR THERAPY RANGESSTANDARD DOSE: 2.0 - 3.0 Includes: PROPHYLAXIS forvenous thrombosis, systemic embolization; TREATMENT for venous thrombosis and/or pulmonary embolus.HIGH RISK: Target INR is 2.5-3.5 for patients with mechanical heart valves.
--- NOTE | 2018-03-06 14:04 | RAD REPORT ---
EXAM DESCRIPTION: RAD - Foot Left 3 View - 03/06/2018 1:42 pm CLINICAL HISTORY: Fall, foot pain COMPARISON: None. FINDINGS: No gross fracture deformity seen. There is cortical irregularity along the lateral base se cond metatarsal. This region is prone to summation artifact; however, small fracture cannot be exclud ed. Correlation is needed regarding location of the patient's foot pain. No other possible fracture c hanges suspected. No acute or destructive bony process. No significant degenerative change. Patient does have small plantar spurring and Achilles spurring. No air or foreign body in the soft tissues. IMPRESSION: No gross fracture deformity seen though there is cortical irregularity at the second met atarsal base potentially a small fracture. Correlation is needed with any pain localizing to the seco nd metatarsal base. Plantar and Achilles spurs.
--- NOTE | 2018-03-06 14:42 | EDPHYS ---
Physician Documentation [facility] Name: Jose Lizama Age: 58 yrs Sex: Male : 1960 Arrival Date: 03/06/2018 Time: 11:52 Bed 12 Private MD: Pavan Kahn R ED Physician Jose Felix HPI: 03/06 14:33 This 58 yrs old Male presents to ER via Ambulatory with complaints of Foot jr8 Injury. 14:33 The patient presents with decreased range of motion, pain, swelling, tenderness. The jr8 complaints affect the dorsum of left foot. Context: The problem was sustained at home, resulted from the patient falling. Onset: The symptoms/episode began/occurred acutely, today. Modifying factors: The symptoms are alleviated by nothing. the symptoms are aggravated by movement. Associated signs and symptoms: The patient has no apparent associated signs or symptoms. Severity of symptoms: At their worst the symptoms were moderate, in the emergency department the symptoms are unchanged. The patient has not experienced similar symptoms in the past. The patient has not recently seen a physician. 14:37 Patient stated that he was in the act of trying to nudge his dog to wake him up. jr8 Accidently missed and fell causing him to hit left foot . Historical: - Allergies: 12:12 No Known Allergies; hj - PMHx: 12:12 CHF; Diabetes - NIDDM; Hypertension; hj - PSHx: 12:12 LVAD; pacemaker insertion; neck surgery; hj - Immunization history:: Adult Immunizations up to date. - Social history:: Smoking status: Patient/guardian denies using tobacco. ROS: 14:37 Eyes: Negative for injury, pain, redness, and discharge, ENT: Negative for injury, jr8 pain, and discharge, Neck: Negative for injury, pain, and swelling, Cardiovascular: Negative for chest pain, palpitations, and edema, Respiratory: Negative for shortness of breath, cough, wheezing, and pleuritic chest pain, Abdomen/GI: Negative for abdominal pain, nausea, vomiting, diarrhea, and constipation, Back: Negative for injury and pain, Skin: Negative for injury, rash, and discoloration, Neuro: Negative for headache, weakness, numbness, tingling, and seizure. 14:37 MS/extremity: Positive for pain, swelling, tenderness, of the left foot and dorsum of left foot. Exam: 14:37 Eyes: Pupils equal round and reactive to light, extra-ocular motions intact. Lids and jr8 lashes normal. Conjunctiva and sclera are non-icteric and not injected. Cornea within normal limits. Periorbital areas with no swelling, redness, or edema. ENT: Nares patent. No nasal discharge, no septal abnormalities noted. Tympanic membranes are normal and external auditory canals are clear. Oropharynx with no redness, swelling, or masses, exudates, or evidence of obstruction, uvula midline. Mucous membranes moist. Neck: Trachea midline, no thyromegaly or masses palpated, and no cervical lymphadenopathy. Supple, full range of motion without nuchal rigidity, or vertebral point tenderness. No Meningismus. Cardiovascular: Regular rate and rhythm with a normal S1 and S2. No gallops, murmurs, or rubs. Normal PMI, no JVD. No pulse deficits. Respiratory: Lungs have equal breath sounds bilaterally, clear to auscultation and percussion. No rales, rhonchi or wheezes noted. No increased work of breathing, no retractions or nasal flaring. Abdomen/GI: Soft, non-tender, with normal bowel sounds. No distension or tympany. No guarding or rebound. No evidence of tenderness throughout. Back: No spinal tenderness. No costovertebral tenderness. Full range of motion. Skin: Warm, dry with normal turgor. Normal color with no rashes, no lesions, and no evidence of cellulitis. Neuro: Awake and alert, GCS 15, oriented to person, place, time, and situation. Cranial nerves II-XII grossly intact. Motor strength 5/5 in all extremities. Sensory grossly intact. Cerebellar exam normal. Normal gait. 14:37 Musculoskeletal/extremity: Extremities: grossly normal except: noted in the dorsum of left foot: ecchymosis, pain, swelling, tenderness, ROM: full active range of motion, full passive range of motion, limited active range of motion due to pain, limited passive range of motion due to pain, Circulation is intact in all extremities. Sensation intact. Vital Signs: 12:13 BP 100 / 60; Pulse 64; Resp 18; Temp 98.1(TE); Pulse Ox 98% on R/A; Weight 112.94 kg; hj Height 6 ft. 0 in. (182.88 cm); Pain 10/10; 12:13 Body Mass Index 33.77 (112.94 kg, 182.88 cm) MDM: 14:24 Patient medically screened. jr8 14:37 Data reviewed: vital signs, nurses notes, radiologic studies, plain films. Data jr8 interpreted: Pulse oximetry: on room air is 98 %. Interpretation: normal. Counseling: I had a detailed discussion with the patient and/or guardian regarding: the historical points, exam findings, and any diagnostic results supporting the discharge/admit diagnosis, radiology results, the need for outpatient follow up, a family practitioner, to return to the emergency department if symptoms worsen or persist or if there are any questions or concerns that arise at home. 03/06 12:14 Order name: XRAY Foot LEFT 3 View; Complete Time: 14:24 03/06 14:42 Order name: Ortho shoe; Complete Time: 15:25 jr8 Administered Medications: 15:03 Drug: [place] 10 mg-325 mg 1 tabs Route: PO; iw 15:40 Follow up: Response: No adverse reaction iw Disposition: 03/06/18 14:41 Discharged to Home. Impression: Contusion of left foot. - Condition is Stable. - Discharge Instructions: Foot Contusion. - Prescriptions for Tramadol 50 mg Oral Tablet - take 1 tablet by ORAL route every 8 hours as needed; 12 tablet. - Medication Reconciliation Form, Thank You Letter, Antibiotic Education, Prescription Opioid Use form. - Follow up: Lalito Kaur MD; When: 5 - 6 days; Reason: Recheck today's complaints, Continuance of care, Re-evaluation by your physician. - Problem is new. - Symptoms have improved. Addendum: 03/09/2018 06:14 Co-signature as Attending Physician, Jsoe Felix MD Available for consultation at p s1 all times. . Signatures: Dispatcher [employer] EDGregory Swanson RN Polly Lozano RN Olvin Kim PA PA jr8 Charles Munguia RN RN hj Singer, Phillip, MD MD ps1
--- NOTE | 2018-03-06 14:42 | ER ---
Nurse's Notes [facility] Name: Jose Lizama Age: 58 yrs Sex: Male : 1960 Arrival Date: 03/06/2018 Time: 11:52 Bed 12 Private MD: Pavan Kahn R Diagnosis: Contusion of left foot Presentation: 03/06 12:11 Presenting complaint: Patient states: this morning i fell and hurt, my L foot, denies hj hitting head and LOC;. Transition of care: patient was not received from another setting of care. Onset of symptoms was March 06, 2018. Care prior to arrival: None. 12:11 Method Of Arrival: Ambulatory 12:11 Acuity: ANIL 4 hj 12:15 Initial Sepsis Screen: Does the patient meet any 2 criteria? No. Patient's initial iw sepsis screen is negative. Does the patient have a suspected source of infection? No. Patient's initial sepsis screen is negative. Triage Assessment: 12:12 General: Appears in no apparent distress. uncomfortable, Behavior is calm, cooperative, hj appropriate for age. Pain: Complains of pain in dorsum of left foot. Musculoskeletal: Reports. Injury Description: Crush injury. Historical: - Allergies: 12:12 No Known Allergies; hj - PMHx: 12:12 CHF; Diabetes - NIDDM; Hypertension; hj - PSHx: 12:12 LVAD; pacemaker insertion; neck surgery; hj - Immunization history:: Adult Immunizations up to date. - Social history:: Smoking status: Patient/guardian denies using tobacco. Screenin:40 Abuse screen: Denies threats or abuse. Denies injuries from another. Nutritional sg screening: No deficits noted. Tuberculosis screening: No symptoms or risk factors identified. Never had TB. Fall Risk None identified. Assessment: 14:25 General: Appears in no apparent distress. comfortable, well groomed, well developed, sg well nourished, Behavior is calm, cooperative, appropriate for age. Pain: Complains of pain in dorsum of left foot Pain does not radiate. Quality of pain is described as aching, tender. Neuro: No deficits noted. Cardiovascular: Heart tones S1 S2 present Capillary refill is brisk in bilateral fingers Patient's skin is warm and dry. Pulses are palpable in right posterior tibial artery and left posterior tibial artery. Respiratory: Airway is patent Respiratory effort is even, unlabored, Respiratory pattern is regular, symmetrical. GI: No signs and/or symptoms were reported involving the gastrointestinal system. : No signs and/or symptoms were reported regarding the genitourinary system. EENT: No signs and/or symptoms were reported regarding the EENT system. Derm: Skin is pink, warm \T\ dry. Musculoskeletal: No signs and/or symptoms reported regarding the musculoskeletal system. Vital Signs: 12:13 BP 100 / 60; Pulse 64; Resp 18; Temp 98.1(TE); Pulse Ox 98% on R/A; Weight 112.94 kg; hj Height 6 ft. 0 in. (182.88 cm); Pain 10/10; 12:13 Body Mass Index 33.77 (112.94 kg, 182.88 cm) hj ED Course: 11:52 Patient arrived in ED. rg4 11:52 Pavan Kahn MD is Private Physician. rg4 12:12 Triage completed. hj 12:13 Arm band placed on left wrist. hj 13:37 X-ray completed. Portable x-ray completed in exam room. Patient tolerated procedure ml well. 13:38 XRAY Foot LEFT 3 View In Process Unspecified. EDMS 14:18 Polly Mendez, RN is Primary Nurse. iw 14:24 Olvin Feliz PA is PHCP. jr8 14:24 Jose Felix MD is Attending Physician. jr8 14:40 Lalito Kaur MD is Referral Physician. jr8 15:30 Patient has correct armband on for positive identification. Adult w/ patient. sg 15:30 No provider procedures requiring assistance completed. Patient did not have IV access sg during this emergency room visit. Ortho shoe applied to left foot. Administered Medications: 15:03 Drug: [place] 10 mg-325 mg 1 tabs Route: PO; iw 15:40 Follow up: Response: No adverse reaction iw Outcome: 14:41 Discharge ordered by . jr8 15:40 Discharged to home via wheelchair, with family. sg 15:40 Condition: good 15:40 Discharge instructions given to patient, Instructed on discharge instructions, follow up and referral plans. medication usage, safety practices, Demonstrated understanding of instructions, follow-up care, medications, Prescriptions given X 1. 15:44 Patient left the ED. iw Signatures: Dispatcher [employer] EDMS Greg Torresen, Polly Lozano RN, RN RN iw Lopez, Melissa ml Roszak, Josh, PA PA jr8 Charles Munguia RN RN hj Garcia, Rubi 4 Corrections: (The following items were deleted from the chart) 12:14 12:13 Pulse Ox 100% RA; 112.94 kg; Height 6 ft. 0 in.; BMI: 33.7; Pain 10/10; hj hj 12:15 12:13 Pulse 64bpm; Resp 18bpm; Pulse Ox 98% RA; Temp 98.1F Temporal; 112.94 kg; Height hj 6 ft. 0 in.; BMI: 33.7; Pain 10/; hj
[2018-03-06] MEDS ORDERED: HYDROCODONE/APAP 10/325 TAB ONE (14:59)
[2018-03-06 15:52] VITALS: BP 100/60; TEMP 98.1; O2SAT 98
== END 2018-03-06 15:44 | disposition home or self-care (01) ==
LOC: ER 11:48
DX: S90.32XA Contusion of left foot, initial encounter (principal); W22.8XXA Striking against or struck by other objects, initial encounter; Y93.89 Activity, other specified; Y92.009 Unspecified place in unspecified non-institutional (private) residence as the place of occurrence of the external cause; I10 Essential (primary) hypertension; Z95.0 Presence of cardiac pacemaker
CPT/HCPCS: 99284

== ENCOUNTER 2018-09-11 11:31 | Emergency (ER) | payer OTHER ==
--- OUTSIDE RECORDS SUMMARY | 2018-09-11 11:33 | XMS REPORT | Clinical Summary ---
:1960 Author Organization [facility] Address [address] [place] [address] Care Team Providers Name Role Phone Pavan Urrutia MD Primary Care Provider Allergies No Known Allergies Current Medications Prescription Sig. Disp. Refills Start Date End Date Status amLODIPine (NORVASC) 5 mg Take 5 mg by mouth Active tablet daily. atorvastatin (LIPITOR) 20 Take 20 mg by mouth Active MG tablet daily. Default OP ins BUMETanide (BUMEX) 1 MG Take 1 mg by mouth Active tablet daily. CARVEDILOL ORAL Take 37.5 mg by Active mouth. ivabradine (CORLANOR) 5 Take 5 mg by mouth Active mg tablet tablet 2 (two) times a day. digOXIN (LANOXIN) 125 mcg Take 125 mcg by Active tablet mouth daily. DOCUSATE CALCIUM ORAL Take by mouth. Active eplerenone (INSPRA) 25 MG Take 25 mg by mouth Active tablet daily. folic acid (FOLVITE) 1 MG Take 1 mg by mouth Active tablet daily. levothyroxine (SYNTHROID, Take 50 mcg by Active LEVOXYL) 50 mcg tablet mouth every morning. losartan (COZAAR) 100 MG Take 100 mg by Active tablet mouth daily. magnesium oxide (MAG-OX) Take 400 mg by Active 400 mg tablet mouth daily. insulin ASPART (NovoLOG) Inject 10 Units Active 100 unit/mL injection under the skin 3 (three) times a day before meals. insulin GLARGINE (LANTUS Inject 30 Units Active SOLOSTAR) 100 unit/mL under the skin injection (pen) nightly. pantoprazole (PROTONIX) Take 40 mg by mouth Active 40 MG EC tablet daily. sertraline (ZOLOFT) 50 MG Take 50 mg by mouth Active tablet daily. tamsulosin (FLOMAX) 0.4 Take 0.4 mg by Active mg capsule mouth daily. warfarin (COUMADIN) 6 MG Take 6 mg by mouth Active tablet daily. warfarin sodium (WARFARIN Take 7 mg by mouth. Active ORAL) zolpidem (AMBIEN) 10 mg Take 10 mg by mouth Active tablet nightly as needed for sleep. pregabalin (LYRICA) 150 Take 150 mg by Active MG capsule mouth 2 (two) times a day. Active Problems Not on file Encounters Date Type Specialty Care Team Description 09/03/2018 Hospital Encounter Radiology Edilson De Paz, Chronic hepatitis C without hepatic coma (HCC); Abnormal liver enzymes 09/03/2018 Hospital Encounter Radiology Edil[facility] De Paz, Chronic hepatitis C without hepatic coma (HCC); Abnormal liver enzymes 07/16/2018 Office Visit Hepatology [facility]il[facility] De Paz, Chronic hepatitis C without hepatic coma (Primary Dx); Abnormal liver enzymes; Chronic hepatitis C without hepatic coma (HCC) after 09/10/2017 Social History Tobacco Use Types Packs/Day Years Used Date Never Assessed Sex Assigned at Date Recorded Not on file Last Filed Vital Signs Vital Sign Reading Time Taken Blood Pressure 93/53 07/16/2018 12:00 PM CDT Pulse 79 07/16/2018 12:00 PM CDT Temperature 35.7 C (96.2 F) 07/16/2018 12:00 PM CDT Respiratory Rate - - Oxygen Saturation 97% 07/16/2018 12:00 PM CDT Inhaled Oxygen Concentration - - Weight 117 kg (257 lb) 07/16/2018 12:00 PM CDT Height 182.9 cm (6') 07/16/2018 12:00 PM CDT Body Mass Index 34.86 07/16/2018 12:00 PM CDT Plan of Treatment Health Maintenance Due Date Last Done Comments COLON CANCER SCREENING 02/25/2012 SHINGRIX VACCINE (#1) 02/25/2012 INFLUENZA VACCINE 06/19/2018 Procedures Procedure Name Priority Date/Time Associated Comments Diagnosis US ABDOMINAL DOPPLER Routine 09/03/2018 11:37 Chronic hepatitis C Results for this AM CDT without hepatic procedure are in coma (HCC) the results Abnormal liver section. enzymes US ABDOMINAL WITH Routine 09/03/2018 11:07 Chronic hepatitis C Results for this LIVER ELASTOGRAPHY AM CDT without hepatic procedure are in coma (HCC) the results Abnormal liver section. enzymes after 09/10/2017 Results US Abdominal Doppler (09/03/2018 11:37 AM) Narrative Performed At EXAMINATION:US ABDOMINAL DOPPLER [facility] CLINICAL HISTORY:B18.2 Chronic viral hepatitis C, R74.8 Abnormal levels of other serum enzymes, Portal HTN COMPARISON:None. TECHNIQUE: Fuchs scale, color Doppler and spectral waveform analysis of the hepatic vasculature. IMPRESSION: PORTAL VEIN:Main portal vein measures 0.6 centimeters, within normal limits. Velocity of 34 cm/s. Main, right and left portal veins are patent with appropriate hepatopedal flow. HEPATIC VEINS:The middle, right and left hepatic veins and IVC are patent and demonstrate acceptable waveforms. HEPATIC ARTERIES:The right and left hepatic arteries are identified with appropriate waveforms. SPLENIC ARTERY AND VEIN AND SMV:Splenic artery, splenic vein and superior mesenteric veinare identified and are patent. [facility]-[id number] Procedure Note Interface, Radiology Results Incoming - 09/03/2018 11:57 AM CDT EXAMINATION: US ABDOMINAL DOPPLER CLINICAL HISTORY: B18.2 Chronic viral hepatitis C, R74.8 Abnormal levels of other serum enzymes, Portal HTN COMPARISON: None. TECHNIQUE: Fuchs scale, color Doppler and spectral waveform analysis of the hepatic vasculature. IMPRESSION: PORTAL VEIN: Main portal vein measures 0.6 centimeters, within normal limits. Velocity of 34 cm/s. Main, right and left portal veins are patent with appropriate hepatopedal flow. HEPATIC VEINS: The middle, right and left hepatic veins and IVC are patent and demonstrate acceptable waveforms. HEPATIC ARTERIES: The right and left hepatic arteries are identified with appropriate waveforms. SPLENIC ARTERY AND VEIN AND SMV: Splenic artery, splenic vein and superior mesenteric vein are identified and are patent. [facility]-[id number] Performing Organization Address City/State/Zipcode Phone Number [facility] [id number] [place] [address] US Abdominal with Liver Elastograpy (09/03/2018 11:07 AM) Narrative Performed At EXAM: US ABDOMINAL WITH LIVER ELASTOGRAPHY [facility] CLINICAL DATA:B18.2 Chronic viral hepatitis C, R74.8 Abnormal levels of other serum enzymes, fatty liver COMPARISON: NONE. TECHNIQUE: Sonographic evaluation of the abdomen, including grayscale/B mode, color and spectral Doppler as well as 2-D Shear wave elastography. FINDINGS: LIVER:The liver is diffusely heterogeneous in echogenicity and has a nodular contour consistent with cirrhosis. 2D-Shear wave elastography was performed; 10 measurements were obtained from the right hepatic lobe per protocol. The median shear wave velocity was 2.1 m/s, most compatible with F>3 fibrosis (see reference ranges for GE Logiq E9 with C1-6 Mhz probe below). Please note that velocities/stiffness may ALSO be elevated due to passive hepatic congestion, biliary obstruction/cholestasis, and inflammation (such as acute viral hepatitis flare).Results should be interpreted with caution in these settings. GE Logiq E9 reference ranges: METAVIRSW velocity Stiffness Normal F>0<1.35 m/s 1.35 m/s<5.48 kPa 5.48 kPa F>11.66 m/s8.29 kPa F>21.77 m/s9.40 kPa F>31.99 m/s11.9 kPa Reliability: The IQR was 0.3, resulting in an IQR/median ratio of 14.3%. (A value of < 0.3 indicates a reliable dataset). MPV:Doppler evaluation of the portal vein demonstrates normal hepatopedal flow.Main portal vein measures 5 mm in thickness. . GALLBLADDER:There is a 4 mm gallbladder polyp. There is no cholelithiasis. Recommend 12 month follow-up. PANCREAS: Nonvisualized CBD: The common bile duct measures 4 mm , within normal limits. ASCITES: No abnormal abdominal fluid collections are visualized. There is no evidence of ascites. KIDNEYS: The kidneys are normal in echogenicity without renal mass or hydronephrosis identified sonographically. SPLEEN:Mildly enlarged, measuring 12.3 cm. AORTA: The abdominal aorta is normal in caliber where visualized. IVC: Visualized portions of the IVC are patent. IMPRESSION: Cirrhotic liver. No hepatic mass identified sonographically. [facility]-[id number] Procedure Note Interface, Radiology Results Incoming - 09/03/2018 12:07 PM CDT EXAM: US ABDOMINAL WITH LIVER ELASTOGRAPHY CLINICAL DATA: B18.2 Chronic viral hepatitis C, R74.8 Abnormal levels of other serum enzymes, fatty liver COMPARISON: NONE. TECHNIQUE: Sonographic evaluation of the abdomen, including grayscale/B mode, color and spectral Doppler as well as 2-D Shear wave elastography. FINDINGS: LIVER: The liver is diffusely heterogeneous in echogenicity and has a nodular contour consistent with cirrhosis. 2D-Shear wave elastography was performed; 10 measurements were obtained from the right hepatic lobe per protocol. The median shear wave velocity was 2.1 m/s , most compatible with F>3 fibrosis (see reference ranges for GE Logiq E9 with C1-6 Mhz probe below). Please note that velocities/stiffness may ALSO be elevated due to passive hepatic congestion, biliary obstruction/cholestasis, and inflammation (such as acute viral hepatitis flare). Results should be interpreted with caution in these settings. GE Logiq E9 reference ranges: METAVIR SW velocity Stiffness Normal F>0 <1.35 m/s 1.35 m/s <5.48 kPa 5.48 kPa F>1 1.66 m/s 8.29 kPa F>2 1.77 m/s 9.40 kPa F>3 1.99 m/s 11.9 kPa Reliability: The IQR was 0.3, resulting in an IQR/median ratio of 14.3%. (A value of < 0.3 indicates a reliable dataset). MPV: Doppler evaluation of the portal vein demonstrates normal hepatopedal flow. Main portal vein measures 5 mm in thickness. . GALLBLADDER: There is a 4 mm gallbladder polyp. There is no cholelithiasis. Recommend 12 month follow-up. PANCREAS: Nonvisualized CBD: The common bile duct measures 4 mm , within normal limits. ASCITES: No abnormal abdominal fluid collections are visualized. There is no evidence of ascites. KIDNEYS: The kidneys are normal in echogenicity without renal mass or hydronephrosis identified sonographically. SPLEEN: Mildly enlarged, measuring 12.3 cm. AORTA: The abdominal aorta is normal in caliber where visualized. IVC: Visualized portions of the IVC are patent. IMPRESSION: Cirrhotic liver. No hepatic mass identified sonographically. [facility]-[id number] Performing Organization Address City/State/Zipcode Phone Number [facility] [address] [place] [address] after 09/10/2017 Insurance Payer Benefit Plan / Group Subscriber ID Type Phone Address GRACIE BOWMAN [facility] xxxxxxxxx O [phone] [place] [address]
--- OUTSIDE RECORDS SUMMARY | 2018-09-11 11:34 | XMS REPORT | Clinical Summary ---
:1960 Author Organization [facility] Address [address] [place] [address] Phone Care Team Providers Name Role Phone Unavailable Primary Care Provider Unavailable Allergies Active Allergy Reactions Severity Noted Date Comments Morphine Nausea Only High 11/20/2017 Current Medications Prescription Sig. Disp. Refills Start End Date Status Date levothyroxine Take 50 mcg by Active (SYNTHROID, mouth Every LEVOTHROID) 50 MCG morning on an tablet empty stomach. insulin aspart Inject 10 Units Active (NOVOLOG) 100 subcutaneously 3 unit/mL InPn (three) times daily before meals And per sliding scale . insulin glargine Inject 30 Units Active 100 unit/mL (3 mL) subcutaneously 2 InPn (two) times daily . losartan (COZAAR) Take 1 tablet (100 30 tablet Active 100 MG tablet mg total) by mouth 7 daily. zolpidem (AMBIEN) Take 10 mg by Active 10 mg tablet mouth every night as needed for Insomnia. folic acid Take 1 tablet (1 90 tablet 3 12/02/19 Active (FOLVITE) 1 MG mg total) by mouth 8 19 tablet daily. amLODIPine Take 1 tablet (5 30 tablet 11 01/11/20 Active (NORVASC) 5 MG mg total) by mouth 8 19 tabletIndications: daily. Left ventricular assist device present (HCC), LVAD (left ventricular assist device) present (HCC), IDDM (insulin dependent diabetes mellitus) (HCC), Chronic anticoagulation, Depression, unspecified depression type, Coronary artery disease involving washoe coronary artery of washoe heart without angina pectoris, Ischemic cardiomyopathy, AICD (automatic cardioverter/defib rillator) present, Neuropathy tamsulosin Take 1 capsule 90 capsule 3 02/14/20 Active (FLOMAX) 0.4 mg (0.4 mg total) by 8 19 Cp24 24 hr mouth daily. capsuleIndications : Coronary artery disease involving washoe coronary artery of washoe heart without angina pectoris, Essential hypertension, Type 2 diabetes mellitus with other circulatory complication, unspecified admitting officer insulin use status, Left ventricular assist device present (HCC), IDDM (insulin dependent diabetes mellitus) (HCC), LVAD (left ventricular assist device) present (HCC), Nonischemic cardiomyopathy (HCC) eplerenone Take 1 tablet (25 90 tablet 3 02/14/20 Active (INSPRA) 25 MG mg total) by mouth 8 19 tabletIndications: daily. Coronary artery disease involving washoe coronary artery of washoe heart without angina pectoris, Essential hypertension, Type 2 diabetes mellitus with other circulatory complication, unspecified admitting officer insulin use status, Left ventricular assist device present (HCC), IDDM (insulin dependent diabetes mellitus) (HCC), LVAD (left ventricular assist device) present (HCC), Nonischemic cardiomyopathy (HCC) warfarin 6 mg daily by Active (COUMADIN) 1 MG mouth. 8 tabletIndications: LVAD (left ventricular assist device) present (HCC), IDDM (insulin dependent diabetes mellitus) (HCC), Chronic anticoagulation, Depression, unspecified depression type, Coronary artery disease involving washoe coronary artery of washoe heart without angina pectoris, Ischemic cardiomyopathy, AICD (automatic cardioverter/defib rillator) present, Neuropathy warfarin 6 mg daily by Active (COUMADIN) 5 MG mouth. 8 tabletIndications: LVAD (left ventricular assist device) present (HCC), IDDM (insulin dependent diabetes mellitus) ([facility]), Chronic anticoagulation, Depression, unspecified depression type, Coronary artery disease involving washoe coronary artery of washoe heart without angina pectoris, Ischemic cardiomyopathy, AICD (automatic cardioverter/defib rillator) present, Neuropathy pantoprazole Take 40 mg by Active (PROTONIX) 40 MG mouth daily. tablet magnesium oxide Take 400 mg by Active (MAG-OX) 400 mg mouth 2 (two) tablet times daily. sertraline Take 50 mg by Active (ZOLOFT) 50 MG mouth daily. tablet ivabradine Take 5 mg by mouth Active (CORLANOR) 5 mg 2 (two) times Tab tablet daily. docusate sodium Take 100 mg by Active (COLACE) 100 MG mouth every other capsule day . pregabalin Take 150 mg by Active (LYRICA) 150 MG mouth 3 (three) capsule times daily. carvedilol (COREG Take 37.5 mg by Active ORAL) mouth 2 (two) times daily. digoxin (LANOXIN) Take 125 mcg by Active 0.125 MG tablet mouth daily. atorvastatin Take 20 mg by Active (LIPITOR) 20 MG mouth daily. tablet gabapentin Take 1 capsule 90 capsule 3 12/01/19 Discontinued (NEURONTIN) 300 MG (300 mg total) by 6 18 capsuleIndications mouth 3 (three) : Chronic systolic times daily. CHF (congestive heart failure) (HCC), Ischemic cardiomyopathy, Hyperlipidemia, Cardiomyopathy ([facility]), LVAD (left ventricular assist device) present ([facility]), Personal history of long-term (current) use of anticoagulants folic acid Take 1 tablet (1 30 tablet 11 12/01/19 Discontinued (FOLVITE) 1 MG mg total) by mouth 7 18 tablet daily. ivabradine Take 1 tablet (5 60 tablet 11 01/20/20 (CORLANOR) 5 mg mg total) by mouth 7 18 Tab tablet 2 (two) times daily. magnesium oxide Take 1 tablet (400 60 tablet 11 01/20/20 (MAG-OX) 400 mg mg total) by mouth 7 18 tablet 2 (two) times daily. tamsulosin Take 1 capsule 30 capsule 11 01/20/20 (FLOMAX) 0.4 mg (0.4 mg total) by 7 18 Cp24 24 hr capsule mouth daily. aluminum & Take 30 mLs by 355 mL 0 01/20/20 magnesium mouth every 6 7 18 hydroxide-simethic (six) hours as one (MAALOX PLUS) needed. 400-400-40 mg/5 mL suspension docusate sodium Take 1 capsule 10 capsule 0 01/20/20 (COLACE) 100 MG (100 mg total) by 7 18 capsule mouth 2 (two) times daily. pantoprazole Take 1 tablet (40 60 tablet 01/20/20 (PROTONIX) 40 MG mg total) by mouth 7 18 tablet 2 (two) times daily. senna (SENOKOT) Take 1 tablet (8.6 30 tablet 01/20/20 8.6 mg tablet mg total) by mouth 7 18 every night as needed for Constipation. simethicone Take 1 tablet (80 30 tablet 0 01/20/20 (MYLICON) 80 MG mg total) by mouth 7 18 chewable tablet every 6 (six) hours as needed for Flatulence. sertraline Sertraline take 36 tablet 01/20/20 (ZOLOFT) 25 MG three tab (75mg) 7 18 tablet per day on Mon, Wed, Fri. sertraline Sertraline 50mg 16 tablet 01/20/20 (ZOLOFT) 50 MG one tab per day on 7 18 tablet Sun, Tue, Th, and Sat. eplerenone Take 1 tablet (25 30 tablet 01/31/20 (INSPRA) 25 MG mg total) by mouth 7 18 tablet daily. bumetanide (BUMEX) Take 1 tablet (1 30 tablet 02/13/20 1 MG mg total) by mouth 7 18 tabletIndications: daily. Cardiomyopathy (HCC), LVAD (left ventricular assist device) present ([facility]), Personal history of long-term (current) use of anticoagulants, Ischemic cardiomyopathy, Chronic systolic CHF (congestive heart failure) ([facility]) warfarin Take one tab PO 30 tablet 5 11/15/20 Discontinued (COUMADIN) 5 MG with additional 1 7 17 tabletIndications: mg tabs for total LVAD (left of 7 mg MWF, 6 mg ventricular assist all other days. device) present ([facility]), IDDM (insulin dependent diabetes mellitus) ([facility]), Chronic anticoagulation, Depression, unspecified depression type, Coronary artery disease involving washoe coronary artery of washoe heart without angina pectoris, Ischemic cardiomyopathy, Type 2 diabetes mellitus with other circulatory complication, AICD (automatic cardioverter/defib rillator) present, Neuropathy warfarin Take PO with 5 mg 90 tablet 5 11/15/20 Discontinued (COUMADIN) 1 MG tab for total of 7 7 17 tabletIndications: mg MWF, 6 mg all LVAD (left other days. ventricular assist device) present ([facility]), IDDM (insulin dependent diabetes mellitus) ([facility]), Chronic anticoagulation, Depression, unspecified depression type, Coronary artery disease involving washoe coronary artery of washoe heart without angina pectoris, Ischemic cardiomyopathy, Type 2 diabetes mellitus with other circulatory complication, AICD (automatic cardioverter/defib rillator) present, Neuropathy digoxin (LANOXIN) Take 1 tablet (125 30 tablet 05/15/20 0.125 MG tablet mcg total) by 7 18 mouth daily. carvedilol (COREG) Take 1.5 tablets 90 tablet 06/08/20 25 MG (37.5 mg total) by 7 18 tabletIndications: mouth 2 (two) Cardiomyopathy, times daily with unspecified type breakfast and ([facility]), LVAD (left dinner. ventricular assist device) present ([facility]), Personal history of long-term (current) use of anticoagulants, Ischemic cardiomyopathy, Chronic systolic CHF (congestive heart failure) ([facility]) atorvastatin Take 1 tablet (20 30 tablet 07/31/20 (LIPITOR) 20 MG mg total) by mouth 7 18 tablet daily. ferrous sulfate Take 1 tablet (325 60 tablet 04/19/20 Discontinued 325 (65 FE) MG mg total) by mouth 7 18 tablet 2 (two) times daily with breakfast and dinner. gabapentin Take by mouth as 06/21/20 Discontinued (NEURONTIN) 100 MG directed Take 400 18 capsule mg ( 300 mg + 100 mg) three times daily . empagliflozin Take 1 tablet (10 30 tablet 5 10/05/20 Discontinued (JARDIANCE) 10 mg mg total) by mouth 7 17 tablet daily. Missing or 3 (three) times 03/01/20 Discontinued Non-Formulary daily V-Go 2-4 18 Medication units depends on blood sugar . sildenafil Take 0.5 tablets 30 tablet 3 11/04/20 (VIAGRA) 100 MG (50 mg total) by 7 17 tabletIndications: mouth daily as LVAD (left needed for ventricular assist Erectile device) present Dysfunction for up ([facility]), IDDM to 30 days. (insulin dependent diabetes mellitus) ([facility]), Chronic anticoagulation, Depression, unspecified depression type, Coronary artery disease involving washoe coronary artery of washoe heart without angina pectoris, Ischemic cardiomyopathy, AICD (automatic cardioverter/defib rillator) present, Neuropathy warfarin Take PO with 5 mg 90 tablet 03/01/20 Discontinued (COUMADIN) 1 MG tab for total of 7 7 18 tabletIndications: mg MWF, 6 mg all LVAD (left other days. ventricular assist device) present ([facility]), IDDM (insulin dependent diabetes mellitus) ([facility]), Chronic anticoagulation, Depression, unspecified depression type, Coronary artery disease involving washoe coronary artery of washoe heart without angina pectoris, Ischemic cardiomyopathy, AICD (automatic cardioverter/defib rillator) present, Neuropathy warfarin Take one tab PO 30 tablet 11 03/01/20 Discontinued (COUMADIN) 5 MG with additional 1 7 18 tabletIndications: mg tabs for total LVAD (left of 7 mg MWF, 6 mg ventricular assist all other days. device) present ([facility]), IDDM (insulin dependent diabetes mellitus) ([facility]), Chronic anticoagulation, Depression, unspecified depression type, Coronary artery disease involving washoe coronary artery of washoe heart without angina pectoris, Ischemic cardiomyopathy, AICD (automatic cardioverter/defib rillator) present, Neuropathy nystatin Apply topically 2 30 g 0 03/01/20 Discontinued (MYCOSTATIN) (two) times daily. 8 18 100,000 unit/gram cream triamcinolone Apply topically 2 30 g 0 12/08/19 (KENALOG) 0.1 % (two) times daily 8 18 topical cream for 7 days to affected area.. bumetanide (BUMEX) Take 1 tablet (1 90 tablet 3 08/23/20 Discontinued 1 MG mg total) by mouth 8 18 tabletIndications: daily. Coronary artery disease involving washoe coronary artery of washoe heart without angina pectoris, Essential hypertension, Type 2 diabetes mellitus with other circulatory complication, unspecified admitting officer insulin use status, Left ventricular assist device present ([facility]), IDDM (insulin dependent diabetes mellitus) (HCC), LVAD (left ventricular assist device) present (HCC), Nonischemic cardiomyopathy (HCC) Active Problems Patient Care Coordination Note Patient [...] 9000 RPMs Speed change Echo due : 08/31/2018 Last Echo: 03/01/2018 Next ICD Interrogation: 07/11/2018 Last ICD interrogation: [...] alarms reported Chronic renal disease, stage III ([facility]) 06/18/2015 Overview: Cr ranges 1 - 1.4 [...] Encounters Date Type Specialty Care Team Description 09/06/2018 Abstract Transplant Benedict Peterson 08/30/2018 Anti-coag visit Transplant Abad Perez RN 08/30/2018 Abstract Transplant Benedict Peterson 08/30/2018 Abstract Transplant Benedict Peterson 08/23/2018 Hospital Encounter Cardiology Mariah iNeto, LVAD (left MD ventricular assist device) present ([facility]) 08/23/2018 Initial consult Transplant Mariah Nieto, Left ventricular MD assist device Carrizales Miladys Tiwari, present ([facility]);Left RD ventricular assist device, HM II, implanted 03/27/2016, DT due to smoking;IDDM (insulin dependent diabetes mellitus) ([facility]);Chronic anticoagulation;Depr ession, unspecified depression type;Coronary artery disease involving washoe coronary artery of washoe heart without angina pectoris;Ischemic cardiomyopathy;AICD (automatic cardioverter/defibri llator) present, MDT;Neuropathy 08/23/2018 Clinic Visit Transplant Mariah Nieto, Chronic systolic CHF MD due to ischemic cardiomyopathy;Coron leslie artery disease involving washoe coronary artery of washoe heart without angina pectoris;Essential hypertension;Hyperli pidemia, unspecified hyperlipidemia type;Type 2 diabetes mellitus with other circulatory complication, unspecified whether admitting officer insulin use ([facility]);AICD (automatic cardioverter/defibri llator) present, MDT;Chronic renal disease, stage III ([facility]) 08/19/2018 Abstract Transplant Benedict Peterson 08/16/2018 Anti-coag visit Transplant Silvia De La Cruz, RN 08/16/2018 Abstract Transplant Benedict Peterson 08/09/2018 Anti-coag visit Transplant Silvia De La Cruz, RN 08/08/2018 Anti-coag visit Transplant Abad Perez, KENZIE 08/08/2018 Abstract Transplant Benedict Peterson 08/01/2018 Anti-coag visit Transplant Abad Perez, RN 08/01/2018 Abstract Transplant Benedict Peterson 07/24/2018 Anti-coag visit Transplant Abad Perez, KENZIE 07/24/2018 Abstract Transplant Benedict Peterson 07/15/2018 Abstract Transplant Benedict Peterson 07/11/2018 Documentation Transplant Dany Mercado, KENZIE 07/08/2018 Anti-coag visit Transplant Silvia De La Cruz, KENZIE 07/08/2018 Abstract Transplant Benedict Peterson 06/28/2018 Anti-coag visit Transplant Cindy Yeung, KENZIE 06/21/2018 Clinic Visit Transplant Mariah Nieto, Coronary artery MD disease involving washoe coronary artery of washoe heart without angina pectoris (Primary Dx);AICD (automatic cardioverter/defibri llator) present, MDT;Left ventricular assist device present (HCC);Left ventricular assist device, HM II, implanted 03/27/2016, DT due to smoking;IDDM (insulin dependent diabetes mellitus) (HCC);Chronic anticoagulation;Depr ession, unspecified depression type;Ischemic cardiomyopathy;Neuro renate 06/21/2018 Hospital Encounter Cardiology 06/21/2018 Orders Only Transplant Abad Perez RN 06/19/2018 Orders Only Transplant Elisa Gutierrez NP 06/14/2018 Anti-coag visit Transplant Abad Perez RN 06/13/2018 Abstract Transplant Benedict Peterson 06/13/2018 Abstract Transplant Benedict Peterson 06/11/2018 Telephone Cardiology Mariah Nieto, Congestive Heart MD Failure 06/06/2018 Telephone Transplant Dany Mercado, Lakeisha RN Maintenance; Follow-up (Liver Biopsy) 06/05/2018 Anti-coag visit Transplant Abad Perez RN 06/05/2018 Abstract Transplant Benedict Peterson 06/05/2018 Documentation Transplant Shoshana Gonzalez 05/28/2018 Abstract Transplant Benedict Peterson 05/28/2018 Anti-coag visit Transplant Abad Perez RN 05/28/2018 Abstract Transplant Benedict Peterson 05/24/2018 Telephone Transplant Cindy Yeung, Waitlist Maintenance RN 05/24/2018 Telephone Transplant Cindy Yeung, Waitlist Maintenance RN 05/21/2018 Anti-coag visit Transplant Abad Perez RN 05/21/2018 Abstract Transplant Benedict Peterson 05/14/2018 Anti-coag visit Transplant Abad Perez RN 05/14/2018 Care Management Call Transplant Abad Perez RN 05/14/2018 Abstract Transplant Benedict Peterson 05/09/2018 Telephone Transplant Dany Mercado Waitlist RN Maintenance; Waitlist Status Update 05/07/2018 Abstract Transplant Benedict Peterson 05/07/2018 Abstract Transplant Benedict Peterson 05/03/2018 Anti-coag visit Transplant Rose Romano Catherine, LVAD (left RN ventricular assist device) present (HCC) 05/03/2018 Abstract Transplant Benedict Peterson 05/03/2018 Telephone Transplant Sara, Waitlist Maintenance Carrillo Fernandez RN 05/01/2018 Telephone Transplant Leonela Zavala RN Advice Only ([facility]) 04/29/2018 Documentation Transplant Shoshana Gonzalez 04/23/2018 Anti-coag visit Transplant Abad Perez RN 04/23/2018 Abstract Transplant Benedict Peterson 04/19/2018 Clinic Visit Transplant Mariah Nieto, Chronic systolic CHF MD due to ischemic cardiomyopathy;Coron leslie artery disease involving washoe coronary artery of washoe heart without angina pectoris;Essential hypertension;Hyperli pidemia, unspecified hyperlipidemia type;Type 2 diabetes mellitus with other circulatory complication, unspecified whether mcc insulin use (HCC);AICD (automatic cardioverter/defibri llator) present, MDT;Chronic renal disease, stage III 04/19/2018 Initial consult Transplant Mariah Nieto, Maricruz Brown, MAULIK 04/19/2018 Orders Only Hepatology Kaur Jauregui Chronic hepatitis C RN without hepatic coma (HCC) (Primary Dx) 04/10/2018 Telephone Transplant Dany Mercado, Waitlist Maintenance RN (Hepatology Follow-up) 04/09/2018 Anti-coag visit Transplant Abad Perez RN 04/09/2018 Abstract Transplant Benedict Peterson 04/08/2018 Orders Only Transplant Abad Perez RN Chronic systolic CHF due to ischemic cardiomyopathy (Primary Dx);Coronary artery disease involving washoe coronary artery of washoe heart without angina pectoris;Essential hypertension;Hyperli pidemia, unspecified hyperlipidemia type;Type 2 diabetes mellitus with other circulatory complication, unspecified whether admitting officer insulin use (HCC);AICD (automatic cardioverter/defibri llator) present, MDT;Chronic renal disease, stage III 04/03/2018 Anti-coag visit Transplant Abad Perez RN 04/03/2018 Abstract Transplant Benedict Peterson 03/26/2018 Anti-coag visit Transplant Abad Perez RN 03/26/2018 Abstract Transplant Benedict Peterson 03/20/2018 Anti-coag visit Transplant Trang Ventura RN 03/20/2018 Abstract Transplant Benedict Peterson 03/12/2018 Anti-coag visit Transplant Abad Perez RN 03/12/2018 Abstract Transplant Benedict Peterson 03/04/2018 Abstract Transplant AlfredoLucrecia tsang Rita 03/02/2018 UNOS Charge Visit Transplant Mariah Nieto MD Provider, [facility] Registry Generic 03/01/2018 Hospital Encounter Cardiology Mariah Nieto, Left ventricular MD assist device present (HCC);Left ventricular assist device, HM II, implanted 03/27/2016, DT due to smoking;IDDM (insulin dependent diabetes mellitus) (HCC);Chronic anticoagulation;Depr ession, unspecified depression type;Coronary artery disease involving washoe coronary artery of washoe heart without angina pectoris;Ischemic cardiomyopathy;AICD (automatic cardioverter/defibri llator) present, MDT;Neuropathy 03/01/2018 Clinic Visit Transplant Mariah Nieto, Chronic systolic CHF MD due to ischemic cardiomyopathy;Left ventricular assist device, Heartmate II, implanted 03/27/16;Chronic anticoagulation;Ronda nary artery disease involving washoe coronary artery of washoe heart without angina pectoris;Essential hypertension;Chronic renal disease, stage III;Left ventricular assist device, HM II, implanted 03/27/2016, DT due to smoking;IDDM (insulin dependent diabetes mellitus) (HCC) 02/26/2018 Abstract Transplant Lucrecia Fuentes Rita 02/26/2018 Abstract Transplant Tito Sauer, KENZIE 02/21/2018 Anti-coag visit Transplant Abad Perez RN 02/21/2018 Abstract Transplant Benedict Peterson 02/19/2018 Telephone Transplant Tito Sauer, RN Follow-up 02/19/2018 Committee Review Transplant Dany Mercado RN 02/18/2018 Committee Review Transplant Tito Sauer, KENZIE 02/14/2018 Anti-coag visit Transplant Abad Perez RN 02/14/2018 Abstract Transplant Benedict Peterson 02/13/2018 Orders Only Intensive Care Abad Perez RN Coronary artery disease involving washoe coronary artery of washoe heart without angina pectoris (Primary Dx);Essential hypertension;Type 2 diabetes mellitus with other circulatory complication, unspecified mcc insulin use status (HCC);Left ventricular assist device, Heartmate II, implanted 03/27/16;IDDM (insulin dependent diabetes mellitus) (HCC);HM II, 03/27/2016, DT due to smoking;Nonischemic cardiomyopathy (HCC) 02/08/2018 Anti-coag visit Transplant Abad Perez, KENZIE 02/07/2018 Anti-coag visit Transplant Cindy Yeung RN [...] Benedict Peterson 01/11/2018 Office Visit Cardiology Leandro Martines NP Chronic systolic CHF (congestive heart failure) (HCC) (Primary Dx) 01/11/2018 Hospital Encounter Cardiology Mariah Nieto Left ventricular MD assist device present ([facility]);Left ventricular assist device, HM II, implanted 03/27/2016, DT due to smoking;IDDM (insulin dependent diabetes mellitus) ([facility]);Chronic anticoagulation;Depr ession, unspecified depression type;Coronary artery disease involving washoe coronary artery of washoe heart without angina pectoris;Ischemic cardiomyopathy;AICD (automatic cardioverter/defibri llator) present, MDT;Neuropathy 01/11/2018 Clinic Visit Transplant Mariah Nieto Left ventricular MD assist device present ([facility]) (Primary Dx);Left ventricular assist device, HM II, implanted 03/27/2016, DT due to smoking;IDDM (insulin dependent diabetes mellitus) (HCC);Chronic anticoagulation;Depr ession, unspecified depression type;Coronary artery disease involving washoe coronary artery of washoe heart without angina pectoris;Ischemic cardiomyopathy;Type 2 diabetes mellitus with other circulatory complication 01/04/2018 Anti-coag visit Transplant Abad Perez RN 01/04/2018 Abstract Transplant Benedict Peterson 12/27/2017 Anti-coag visit Transplant Abad Perez RN 12/27/2017 Abstract Transplant Benedict Peterson 12/20/2017 Abstract Transplant Benedict Peterson 12/20/2017 Documentation Transplant Shoshana Gonzalez 12/20/2017 Documentation Transplant Shoshana Gonzalez 12/13/2017 Anti-coag visit Transplant Leonela Zavala RN 12/13/2017 Abstract Transplant Benedict Peterson 12/06/2017 Anti-coag visit Transplant Abad Perez RN 12/06/2017 Abstract Transplant Benedict Peterson 11/22/2017 Procedure Pass Gastroenterology 11/22/2017 Surgery Gastroenterology Amaratunge, UPPER [place] ENDOSCOPY,POLYPECTOM MD Nicky Y 11/21/2017 Hospital Encounter Transplant Gary Brown MD cardiomyopathy 12/01/2017 Rory Soria, (Primary MD Dx);Gastrointestinal Hasan, Luigi Ali hemorrhage with MD Israel melena;Left Massumi, Susan ventricular assist MD Darian device, Heartmate II, implanted 03/27/16;Anemia, blood loss;Acute blood loss anemia;LVAD (left ventricular assist device) present (HCC);HM II, 03/27/2016, DT due to smoking 11/21/2017 Anesthesia Event Gastroenterology Kt Beckett, RITU 11/21/2017 Telephone Transplant Leonela Zavala RN Follow-up (bloody stool and nose bleed) 11/16/2017 Anti-coag visit Transplant Abad Perez RN 11/15/2017 Orders Only Transplant Abad Perez RN Left ventricular assist device, HM II, implanted 03/27/2016, DT due to smoking;IDDM (insulin dependent diabetes mellitus) (HCC);Chronic anticoagulation;Depr ession, unspecified depression type;Coronary artery disease involving washoe coronary artery of washoe heart without angina pectoris;Ischemic cardiomyopathy;AICD (automatic cardioverter/defibri llator) present, MDT;Neuropathy 11/07/2017 Abstract Hepatology Adriana Rodriguez RN 11/05/2017 Anti-coag visit Transplant Abad Perez RN 11/05/2017 Abstract Transplant Benedict Peterson 10/26/2017 Anti-coag visit Transplant Abad Perez RN 10/26/2017 Abstract Transplant Benedict Peterson 10/18/2017 Anti-coag visit Transplant Trang Ventura RN 10/18/2017 Abstract Transplant Benedict Peterson 10/05/2017 Clinic Visit Transplant Gio Nguyen MD Left ventricular Mariah Nieto, assist device, II, implanted 03/27/2016, DT due to smoking;IDDM (insulin dependent diabetes mellitus) (HCC);Chronic anticoagulation;Depr ession, unspecified depression type;Coronary artery disease involving washoe coronary artery of washoe heart without angina pectoris;Ischemic cardiomyopathy;Type 2 diabetes mellitus with other circulatory complication;AICD (automatic cardioverter/defibri llator) present, MDT;Neuropathy 10/05/2017 Hospital Encounter Radiology Tish Hauser, Pulmonary nodule TRAVEL JOURNALIST 10/02/2017 Abstract Hepatology Adriana Rodriguez RN 09/28/2017 Abstract Hepatology Adriana Rodriguez RN 09/28/2017 Anti-coag visit Transplant Abad Perez RN 09/28/2017 Abstract Transplant Bneedict Peterson 09/27/2017 Office Visit Hepatology Yung Herrera History of hepatitis MD Evelin C (Primary Adriana Rodriguez Dx);Hepatic fibrosis KENZIE Loomis (HCC);Immunity status testing;History of alcohol abuse;Other cardiomyopathy (HCC);Obesity (BMI 30-39.9) 09/21/2017 Abstract Transplant Lucrecia Fuentes 09/20/2017 Anti-coag visit Transplant Abad Perez RN 09/20/2017 Abstract Transplant Benedict Peterson 09/18/2017 Telephone Transplant Tito Sauer RN Follow-up 09/13/2017 Anti-coag visit Transplant Abad Perez RN 09/12/2017 Lab Requisition Lab Mariah Nieto MD after 09/10/2017 Immunizations Name Dates Previously Given Next Due [...] Vital Sign Reading Time Taken Blood Pressure 103/70 08/23/2018 7:49 AM CDT Pulse 75 08/23/2018 7:49 AM CDT Temperature 35.9 C (96.7 F) 08/23/2018 7:49 AM CDT Respiratory Rate 18 08/23/2018 7:49 AM CDT Oxygen Saturation 97% 08/23/2018 7:49 AM CDT Inhaled Oxygen Concentration - - Weight 115.6 kg (254 lb 12.8 oz) 08/23/2018 7:49 AM CDT Height 181.6 cm (5' 11.5") 08/23/2018 7:49 AM CDT Body Mass Index 35.04 08/23/2018 7:49 AM CDT Plan of Treatment Date Type Specialty Care Team Description 10/04/2018 Clinic Visit Transplant Mariah Nieto MD [address] [id number] Health Maintenance Due Date Last Done Comments INFLUENZA VACCINE 08/19/2018 08/31/2017 Implants Implanted Type Area Customer Services Supervisor Device Expiration Model / Identifier Date Serial / Lot Ctrl Pkt Kt Seal Hrtmate Ii - [id number] Cardiovascular THORATEC SANJIV [id number] / Implanted: Qty: 1 on 03/27/2016 by Gene Pradhan MD VAD- [id number] / Collar Hmii Sealed Outflow [id number] - [id number] Cardiovascular N/A: THORATEC SANJIV 01/16/2019 [id number] / Implanted: Qty: 1 on 03/27/2016 by Gene Pradhan MD Chest / [id number] Ring Sewing Apical Strl 106 [id number] Cardiovascular N/A: THORATEC SANJIV 01/16/2019 1065 / Implanted: Qty: 1 on 03/27/2016 by Gene Pradhan MD Chest / [id number] Inflw Pack And Hmii Sealed [id number] - [id number] Cardiovascular N/A: THORATEC SANJIV 01/16/2019 [id number] / Implanted: Qty: 1 on 03/27/2016 by Gene Pradahn MD Chest / [id number] Graft Otflw Hmii Sealed [id number] - [id number] Cardiovascular N/A: THORATEC SANJIV 01/16/2019 [id number] / Implanted: Qty: 1 on 03/27/2016 by Gene Pradhan MD Chest / [id number] Ctrl Pkt Hrtmate Ii [id number] - [id number] Cardiovascular THORATEC SANJIV [id number] / Implanted: Qty: 1 on 03/27/2016 by Gene Pradhan MD [id number] / Ctrl Pkt Hrtmate Ii [id number] - [id number] Cardiovascular THORATEC SANJIV [id number] / Implanted: Qty: 1 on 03/27/2016 [id number] / Tachosil Absrb Ptch 4.8x4.8cm [id number] - [id number] Cement/Filler/Adh N/A: KRAUS:BIOSCI 02/16/2017 [id number] / Implanted: Qty: 1 on 03/27/2016 by Gene Pradhan MD esive Chest / [id number] Procedures Procedure Name Priority Date/Time Associated Diagnosis Comments UPPER 11/22/2017 3:00 PM Gastrointestinal ENDOSCOPY,POLYPECTOM RELIGIOUS ACTIVITIES DIRECTOR hemorrhage, unspecified Y gastrointestinal hemorrhage type Special Needs (CV ANESTHESIA SCHEDULED WITH APRIL) CRITICAL CARE Routine 11/21/2017 2:54 AM RELIGIOUS ACTIVITIES DIRECTOR after 09/10/2017 Results CBC with platelet count + automated diff (09/06/2018 9:05 AM)Only the most recent of20 resultswithin the time period is included. Component Value Ref Range WBC (MANUAL) 6.0 10^3/mL RBC (MANUAL) 4.48 10^6/L HEMOGLOBIN (MANUAL) 14.1 GM/DL HEMATOCRIT (MANUAL) 39.2 % MCV (MANUAL) 87.6 fL MCH (MANUAL) 31.4 pg MCHC (MANUAL) 35.9 GM/DL RDW (MANUAL) 13.5 % PLATELETS (MANUAL) 140 K/CU MM MPV (MANUAL) 8.8 fL NRBC (MANUAL) /100 WBC NEUTROS PCT (MANUAL) 61.2 % LYMPHS PCT (MANUAL) 27.8 % MONOS PCT (MANUAL) 7.8 % EOS PCT (MANUAL) 2.1 % BASOS PCT (MANUAL) 1.1 % NEUTROS ABS (MANUAL) 3.7 K/L LYMPHS ABS (MANUAL) 1.7 K/L MONOS ABS (MANUAL) 0.5 K/L EOS ABS (MANUAL) 0.1 K/L BASOS ABS (MANUAL) 0.1 K/L Specimen Performing Laboratory Blood Basic Metabolic Panel (09/06/2018 9:05 AM)Only the most recent of26 resultswithin the time period is included. Component Value Ref Range SODIUM (MANUAL) 139 meq/L POTASSIUM (MANUAL) 4.5 meq/L CHLORIDE (MANUAL) 109 meq/L CO2 (MANUAL) 25 meq/L BUN (MANUAL) 37 mg/dL CREATININE (MANUAL) 1.10 mg/dL GLUCOSE (MANUAL) 157 mg/dL CALCIUM (MANUAL) 8.5 mg/dL EGFR (MANUAL) 69 mL/min/1.73 m^2 Specimen Performing Laboratory Blood Prothrombin time/INR (08/30/2018 9:18 AM)Only the most recent of54 resultswithin the time period is included. Component Value Ref Range PROTIME (MANUAL) 24.0 seconds INR (MANUAL) 2.02 Specimen Performing Laboratory Blood ECHOCARDIOGRAM REPORT - SCAN (08/23/2018 5:30 PM)Only the most recent of2 resultswithin the time period is included.2D Echo W/Doppler(CW/PW/Color) (2017 10:02 AM)Only the most recent of2 resultswithin the time period is included. 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 Clinical History Anemia, CAD, CHF, DM, HEP C, HTN, Hypothyroidism, ICMP HGB 14.2 HCT 41.7 % AICD, HM II 03/27/16 Baseline 9000rpm Speed change: 8600, 9000, 9400rpm Height: 71 inches Weight: 115.21 kg (254 lbs) BSA: 2.33 m^2 BMI: 35.43 kg/m^2 HR: 61 bpm BP: 103/70 mmHg Summary LVAD Device: HM II. Baseline Speed 9000 RPM. Other speeds assessed: 8600, 9400 RPM 9000 RPM (baseline) -LVIDd 5.7 cm; AoV opens ; AoV opening duration 193 ms; none AR; mild MR; mild TR; est RVSP=20-25mmHg + RAP; RVOT VTI=11.5 cm; Mitral E jamila=0.97 m/s; Ventricular septal position: indet. Inflow Cannula . Peak Systolic Velocity: 0.87 m/sec and Peak Diastolic Velocity: 0.31 m/sec. Outflow Graft . Peak Systolic Velocity: 0.81 m/sec and Peak Diastolic Velocity: 0.3 m/sec. 8600 RPM -LVIDd 5.8 cm; AoV opens ; AoV opening duration 210 ms; none AR; mild MR; mild TR; est RVSP=20-25mmHg + RAP; RVOT VTI=10.5 cm; Mitral E jamila=indet m/s; Ventricular septal position: indet. 9400 RPM -LVIDd 5.5 cm; AoV opens ; AoV opening duration 176 ms; none AR; mild MR; mild TR; est RVSP=20-25mmHg + RAP; RVOT VTI=10 cm; Mitral E jamila=indet m/s; Ventricular septal position: indet. Previous Study In comparison with the prior exam on 03-01-18 there are no significant changes. Signature Findings Technical Quality: Technically adequate exam. Left Ventricle The left ventricle is chamber size (by PSLAX dimension) is normal (male - LVIDd 4.2-5.8cm) . Normal LV wall thickness. Septal motion is abnormal, likely related to prior cardiac surgery . The other segments are severely hypokinetic. Global LV systolic function severely reduced . Left AtriumLA size is moderately enlarged (42-48 ml/m2 ) . Right VentricleRV pacing wire is visualized . RV chamber size is normal . Global RV systolic function is low normal . Right Atrium RA pacing wire is visualized . RA cavity size is normal . Aortic Valve AoV cusp mobility is decreased, related to LVAD support. . Mild AoV cusp thickening. Mitral Valve Mild MV leaflet thickening. Mild mitral regurgitation. Tricuspid ValveMild tricuspid regurgitation. Estimated peak systolic PA pressure is 20-25 mmHg + RA pressure. Pulmonic Valve Normal PV structure and function. AortaAortic root size (SInus of Valsalva diameter) is normal . PericardiumNo significant pericardial effusion is visualized by limited views. IVC/SVC/PA/PV/PleuralThe estimated RA pressure by IVC dynamics indeterminate . The inferior vena cava is not visualized. [facility] Circ SupportA HeartMate II left ventricular assist device (LVAD) is present. Chambers/Structures Left Atrium LA Volume: 109.4 ml LA Area: 30.36 cm^ 2 LA Vol. 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 Clinical History Anemia, CAD, CHF, DM, HEP C, HTN, Hypothyroidism, ICMP HGB 14.2 HCT 41.7 % AICD, HM II 03/27/16 Baseline 9000rpm Speed change: 8600, 9000, 9400rpm Height: 71 inches Weight: 115.21 kg (254 lbs) BSA: 2.33 m^2 BMI: 35.43 kg/m^2 HR: 61 bpm BP: 103/70 mmHg Summary LVAD Device: HM II. Baseline Speed 9000 RPM. Other speeds assessed: 8600, 9400 RPM 9000 RPM (baseline) -LVIDd 5.7 cm; AoV opens ; AoV opening duration 193 ms; none AR; mild MR; mild TR; est RVSP=20-25mmHg + RAP; RVOT VTI=11.5 cm; Mitral E jamila=0.97 m/s; Ventricular septal position: indet. Inflow Cannula . Peak Systolic Velocity: 0.87 m/sec and Peak Diastolic Velocity: 0.31 m/sec. Outflow Graft . Peak Systolic Velocity: 0.81 m/sec and Peak Diastolic Velocity: 0.3 m/sec. 8600 RPM -LVIDd 5.8 cm; AoV opens ; AoV opening duration 210 ms; none AR; mild MR; mild TR; est RVSP=20-25mmHg + RAP; RVOT VTI=10.5 cm; Mitral E jamila=indet m/s; Ventricular septal position: indet. 9400 RPM -LVIDd 5.5 cm; AoV opens ; AoV opening duration 176 ms; none AR; mild MR; mild TR; est RVSP=20-25mmHg + RAP; RVOT VTI=10 cm; Mitral E jamila=indet m/s; Ventricular septal position: indet. Previous Study In comparison with the prior exam on 03-01-18 there are no significant changes. Signature Findings Technical Quality: Technically adequate exam. Left Ventricle The left ventricle is chamber size (by PSLAX dimension) is normal (male - LVIDd 4.2-5.8cm) . Normal LV wall thickness. Septal motion is abnormal, likely related to prior cardiac surgery . The other segments are severely hypokinetic. Global LV systolic function severely reduced . Left Atrium LA size is moderately enlarged (42-48 ml/m2) . Right Ventricle RV pacing wire is visualized . RV chamber size is normal . Global RV systolic function is low normal . Right Atrium RA pacing wire is visualized . RA cavity size is normal . Aortic Valve AoV cusp mobility is decreased, related to LVAD support. . Mild AoV cusp thickening. Mitral Valve Mild MV leaflet thickening. Mild mitral regurgitation. Tricuspid Valve Mild tricuspid regurgitation. Estimated peak systolic PA pressure is 20-25 mmHg + RA pressure. Pulmonic Valve Normal PV structure and function. Aorta Aortic root size (SInus of Valsalva diameter) is normal . Pericardium No significant pericardial effusion is visualized by limited views. IVC/SVC/PA/PV/Pleural The estimated RA pressure by IVC dynamics indeterminate . The inferior vena cava is not visualized. [facility] Circ Support A HeartMate II left ventricular assist device (LVAD) is present. Chambers/Structures Left Atrium LA Volume: 109.4 ml LA Area: 30.36 cm^2 LA Vol. Index: 47 ml/m^2 Left Ventricle LVIDd: 5.71 cm LV Septum Diastolic: 0.82 cm LV PW Diastolic: 0.83 cm Aorta Ao Root S of Oksana.: 2.93 cm Doppler/Quantitative Measurements Tricuspid Valve TR Velocity: 2.42 m/s TR Gradient: 23.42 mmHg CBC with platelet count + automated diff (08/23/2018 7:46 AM)Only the most recent of8 resultswithin the time period is included. Component Value Ref Range WBC 7.7 3.5 - 10.5 K/L RBC 4.61 (L) 4.63 - 6.08 M/L Hemoglobin 14.2 13.7 - 17.5 GM/DL Hematocrit 41.7 40.1 - 51.0 % MCV 90.5 79.0 - 92.2 fL MCH 30.8 25.7 - 32.2 pg MCHC 34.1 32.3 - 36.5 GM/DL RDW 13.1 11.6 - 14.4 % Platelets 166 150 - 450 K/CU MM MPV 10.3 9.4 - 12.4 fL nRBC 0 0 - 0 /100 WBC % Neutros 63 % % Lymphs 25 % % Monos 9 % % Eos 2 % % Baso 1 % # Neutros 4.84 1.78 - 5.38 K/L # Lymphs 1.95 1.32 - 3.57 K/L # Monos 0.65 0.30 - 0.82 K/L # Eos 0.14 0.04 - 0.54 K/L # Baso 0.07 0.01 - 0.08 K/L Immature Granulocytes-Relative 1 0 - 1 % Specimen Performing Laboratory Blood [address] [address] Magnesium (08/23/2018 7:46 AM)Only the most recent of6 resultswithin the time period is included. Component Value Ref Range Magnesium 2.2 1.6 - 2.6 mg/dL Specimen Performing Laboratory Blood [address] [address] Lactate dehydrogenase (LDH) (08/23/2018 7:46 AM)Only the most recent of8 resultswithin the time period is included. Component Value Ref Range LDH 316 (H) 125 - 220 U/L Specimen Performing Laboratory Blood [address] [address] Hepatic function panel (08/23/2018 7:46 AM)Only the most recent of8 resultswithin the time period is included. Component Value Ref Range Protein, Total 7.8 6.0 - 8.3 gm/dL Albumin 3.8 3.5 - 5.0 g/dL Total Bilirubin 0.6 0.2 - 1.2 mg/dL Bilirubin, Direct 0.3 0.1 - 0.5 mg/dL Alkaline Phosphatase 129 40 - 150 U/L AST 35 (H) 5 - 34 U/L ALT 47 6 - 55 U/L Specimen Performing Laboratory Blood [address] [address] Lipid panel (08/23/2018 7:46 AM) Component Value Ref Range Triglycerides 221 mg/dL Cholesterol 161 mg/dL HDL 34 mg/dL LDL Calculated 83 mg/dL Specimen Performing Laboratory Blood [address] [address] Narrative Triglyceride Reference Range: Low Risk <150 [id number] High Risk 200-499 Very High Risk>=500 Cholesterol Reference Range: Low Risk <200 Duhdbgykwf892-203 High Risk>240 HDL Cholesterol Reference Range: Low Risk >=60 High Risk <40 LDL Cholesterol Reference Range: Optimal<100 Near Ukibvyk109-327 Bobebqhado340-744 Adpa795-636 Very High >=190 POCT INR (06/28/2018 10:41 AM)Only the most recent of2 resultswithin the time period is included. Component Value Ref Range INR (MANUAL) 1.64 Specimen Performing Laboratory Blood Iron, TIBC, % sat. (without ferritin) (06/21/2018 11:26 AM)Only the most recent of3 resultswithin the time period is included. Component Value Ref Range Iron 100 40 - 160 ug/dL TIBC 289 250 - 450 ug/dL Iron % Saturation 35 20 - 55 % Specimen Performing Laboratory Blood [address] [address] Prealbumin (06/21/2018 11:26 AM)Only the most recent of4 resultswithin the time period is included. Component Value Ref Range Prealbumin 16 14 - 45 mg/dL Specimen Performing Laboratory Blood [address] [address] Ferritin (06/21/2018 11:26 AM)Only the most recent of3 resultswithin the time period is included. Component Value Ref Range Ferritin 475 (H) 5 - 275 ng/mL Specimen Performing Laboratory Blood [facility] [address] [address] Hemoglobin and hematocrit (05/07/2018 9:52 AM)Only the most recent of6 resultswithin the time period is included. Component Value Ref Range Hematocrit 39 (A) 41 - 53 % Hemoglobin 13.7 13.5 - 17.5 g/dL Specimen Performing Laboratory Blood Plasma free hemoglobin (03/01/2018 9:22 AM)Only the most recent of3 resultswithin the time period is included. Component Value Ref Range Hgb, Plasma 80.0 (H) 0.0 - 30.0 mg/dl Specimen Performing Laboratory Blood [address] [address] Transferrin (03/01/2018 9:21 AM) Component Value Ref Range Transferrin 248 174 - 382 mg/dL Specimen Performing Laboratory Blood [address] [address] ARRYTHMIA IMPLANT REPORT - SCAN (02/28/2018 12:20 PM)Only the most recent of3 resultswithin the time period is included.RHYTHM STRIP - SCAN (12/06/2017 11:34 AM)POC-Glucose meter (12/01/2017 12:02 PM)Only the most recent of37 resultswithin the time period is included. Component Value Ref Range POC-Glucose Meter 270 (H)Comment: TESTED AT [address] 70 - 110 mg/[place] [address] Specimen Performing Laboratory Blood [address] [address] aPTT (12/01/2017 5:44 AM)Only the most recent of20 resultswithin the time period is included. Component Value Ref Range PTT 75.9 (H) 22.5 - 36.0 seconds Specimen Performing Laboratory Blood - Arm, Right [address] [address] CBC (Hemogram only) (11/30/2017 5:58 AM)Only the [...] 0 /100 WBC Specimen Performing Laboratory Blood [address] [address] Hemoglobin A1c (11/26/2017 4:45 PM)Only the most recent of2 resultswithin the time period is included. Component Value Ref Range Hemoglobin A1C 7.0 (H) 4.3 - 6.1 % Specimen Performing Laboratory Blood - Arm, [address] [address] Lipase (11/26/2017 6:10 AM)Only the most recent of2 resultswithin the time period is included. Component Value Ref Range Lipase 31 8 - 78 U/L Specimen Performing Laboratory Blood - Arm, [address] [address] XR abdomen / KUB 1 view (11/25/2017 [...] MD Report Verified Date/Time:11/25/2017 15:59:39 Reading Location: [facility] C013X Ortho Consult Reading Room Procedure Note Interface, External Ris In - 11/25/2017 4:27 PM RELIGIOUS ACTIVITIES DIRECTOR FINAL REPORT ONE VIEW ABDOMEN HISTORY: Epigastric [...] Report Verified Date/Time: 11/25/2017 15:59:39 Reading Location: [facility] B1 C013X Ortho Consult Reading Room SFUSION SERVICE REPORT - SCAN (11/23/2017 5:42 PM)Only the most recent of2 resultswithin the time period is included.Prepare Leuko-Red RBC (11/22/2017 11: 54 PM) Component Value Ref Range CROSSMATCH COMPATIBLE Unit ABO A Pos UNIT NUMBER [id number] Status TRANSFUSED Blood Bank Product RED BLOOD CELLS PRODUCT CODE R0124T32 CROSSMATCH COMPATIBLE Unit ABO A Pos UNIT NUMBER [id number] Status READY Blood Bank Product RED BLOOD CELLS PRODUCT CODE N6632T65 Specimen Performing Laboratory Other [facility] [place] REPORT OF PROCEDURE - ENDOSCOPY URL (11/22/2017 5:15 PM)Tissue Exam (2017 5:10 PM) Component Value Ref Range Case Report Surgical Pathology Report Case: [id number] Authorizing Provider:Oli Wellingtonected: 11/22/2017 1710 MD Nicky Ordering Location: [facility] Recovery Room 2 Received: 11/23/2017 0806 Pathologist: Billy Jean MD Specimen:Stomach,Antrum, polyp DIAGNOSIS PART A GASTRIC ANTRUM POLYP, BIOPSY: GASTRIC MUCOSA WITH HYPERPLASTIC FEATURES AND FOCAL INTESTINAL METAPLASIA. NEGATIVE FOR DYSPLASIA OR INVASIVE CARCINOMA. WARTHIN STARRY STAIN FOR HELICOBACTER IS NEGATIVE. Signing Pathologist Direct Phone Line: [phone] CPT Code(s) 27232, 21654 CLINICAL HISTORY Gastrointestinal hemorrhage SPECIMEN SOURCE Stomach [...] Specimen Performing Laboratory Tissue - Stomach, Antrum [address] [address] Transfuse Leuko-Red RBC (11/21/2017 6:30 AM)Only the most recent of2 resultswithin the time period is included.Type and screen, automated ([facility] and [facility] only) (11/21/2017 4:42 AM)Only the most recent of2 resultswithin the time period is included. Component Value Ref Range ABO/RH AUTOMATED (BEAKER) A POSITIVE Ab Scrn NEGATIVE Specimen Performing Laboratory Blood [facility] [address] [address] ED ECG Interpretation (11/21/2017 2:54 AM) Narrative Gary Brown MD 11/21/20172:54 AM ECG/EKG Interpretation Date/Time: 11/21/2017 1:07 AM Performed by: GARY BROWN Authorized by: GARY BROWN The ECG was interpreted by ED physician. This ECG was not compared with previous ECG(s).The ECG is interpreted as paced. Rate is normal rate. Pacin% capture observed. Clinical Impression: non-specific ECGECG reviewed and does not meet STEMI criteria. Patient tolerance: Patient tolerated the procedure well with no immediate complications Critical Care (11/21/2017 2:54 AM) Narrative Gary Brown MD 11/21/20172:54 AM Critical Care Performed by: GARY BROWN Authorized by: GARY BROWN Total critical care time: 40 minutes [...] Impression: No acute abnormality. Signed: Ervin Rodriguez MD Report Verified Date/Time:11/21/2017 02:11:19 Reading Location: [address] Reading Room Procedure Note Interface, External Ris In - 11/21/2017 2:13 AM RELIGIOUS ACTIVITIES DIRECTOR FINAL REPORT History: Epistaxis, rectal bleeding, abdominal [...] Impression: No acute abnormality. Signed: Ervin Rodriguez MD Report Verified Date/Time: 11/21/2017 02:11:19 Reading Location: [address] Reading Room Urinalysis w/ Microscopic (11/21/2017 12:05 AM) Component Value Ref Range Color, UA Yellow Clarity, UA Clear Specific [place], UA 1.015 1.001 - 1.035 pH, UA [...] Specimen Performing Laboratory Urine - Urine, Voided [address] [address] PT/aPTT (11/21/2017 12:01 AM) Component Value Ref Range Protime 25.4 (H) 11.7 - 14.7 seconds INR 2.3 <=5.9 PTT 36.2 (H) 22.5 - 36.0 seconds Specimen Performing Laboratory Blood - Line, [address] [address] Narrative RECOMMENDED COUMADIN/WARFARIN INR THERAPY RANGES STANDARD DOSE: 2.0 - 3.0 Includes: PROPHYLAXIS for venous thrombosis, systemic embolization; TREATMENT for venous thrombosis and/or pulmonary embolus. HIGH RISK: Target INR is 2.5-3.5 for patients with mechanical heart valves. Troponin I (not available at [facility]) (11/21/2017 12:01 AM) Component Value Ref Range Troponin I <0.01 0.00 - 0.03 ng/mL Specimen Performing Laboratory Blood - Line, [address] [address] Narrative Troponin I (TnI) levels must be [...] persistent tachyarrhythmia. B-type natriuretic peptide (11/21/2017 12:01 AM) Component Value Ref Range BNP 339 (H) 0 - 100 pg/mL Specimen Performing Laboratory Blood - Line, [address] [address] Creatine Kinase (CK), Total and MB (not available at [facility]) (2017 12:01 AM) Component Value Ref Range Total CK 59 29 - 200 U/L CK-MB 1.0 0.0 - 6.6 ng/mL MB Relative Index 1.7 % Specimen Performing Laboratory Blood - Line, [address] [address] Narrative CK-MB Reference Range: <6.7Normal 6.7-10.0Borderline >10.0 Abnormal Amylase (11/21/2017 12:01 AM) Component Value Ref Range Amylase 28 25 - 125 U/L Specimen Performing Laboratory Blood - Line, Venous [facility] [address] [address] ECG 12 lead (11/20/2017 11:50 PM) Specimen Performing Laboratory GE MUSE Narrative Ventricular Rate 63 BPM Atrial Rate 63 BPM P-R Interval 124 ms QRS Duration 178 ms Q-T Interval 490 ms QTC Calculation(Bazett) 501 ms P Tatamy -2 degrees R Tatamy 251 degrees T Tatamy 87 degrees Poor data quality Sinus rhythm with electronic ventricular pacing Abnormal ECG When compared with ECG of 13-JAN-2017 13:53, No significant changes Confirmed by MD ESTHER, PINA ([id number]) on 11/21/2017 6:07:04 AM Procedure Note Interface, External Ris In - 11/21/2017 6:07 AM RELIGIOUS ACTIVITIES DIRECTOR Ventricular Rate 63 BPM Atrial Rate 63 BPM P-R Interval 124 ms QRS Duration 178 ms Q-T Interval 490 ms QTC Calculation(Bazett) 501 ms P Tatamy -2 degrees R Tatamy 251 degrees T Tatamy 87 degrees Poor data quality Sinus rhythm with electronic ventricular pacing Abnormal ECG When compared with ECG of 13-JAN-2017 13:53, No significant changes Confirmed by MD ESTHER, PINA ([id number]) on 11/21/2017 6:07:[address] chest without IV contrast (10/05/2017 12:30 PM) Specimen Performing Laboratory GE RIS Narrative FINAL REPORT HISTORY: Lung nodule, [...] aspirated/mucus material. Please see above. Signed: Hank Bass MD Report Verified Date/Time:10/05/2017 14:33:30 Reading Location: [facility] Diagnostic Imaging Reading Room - [place] [address] Procedure Note Interface, External Ris In - 10/05/2017 2:35 PM RELIGIOUS ACTIVITIES DIRECTOR FINAL REPORT HISTORY: Lung nodule, <1cm COMPARISON [...] aspirated/mucus material. Please see above. Signed: Hank Bass MD Report Verified Date/Time: 10/05/2017 14:33:30 Reading Location: [facility] Diagnostic Imaging Reading Room - [place] [address] Hepatitis C RNA, Quantitative (09/27/2017 4:04 PM) Component Value Ref Range HCV PCR, Quantitative HCV RNA not detected HCV RNA not detected Specimen Performing Laboratory Blood [address] [address] Narrative This test uses a Real-Time Polymerase Chain Reaction (RT-PCR) methodology and was performed using [employer] Ampliprep/BHASKAR TaqMan HCV test kit version 2.0 ( [employer]). Reportable range for this assay is 15 - 100,000,000 IU per mL (1.18 - 8.00 Log IU/mL). after 09/10/2017 Advance Directives Patient has advance directives. For more information, please contact:[address] [phone]
--- OUTSIDE RECORDS SUMMARY | 2018-09-11 11:38 | XMS REPORT ---
:1960 [facility] [address] [place] [address] Care Team Providers Name Role Phone DEION WOOD Unavailable Unavailable GARY BROWN Unavailable Unavailable NO NESS Unavailable Unavailable BRAIN BULL Unavailable Unavailable DEION WOOD Unavailable Unavailable JESSICA CARMONA Unavailable Unavailable PAIGE SPARKS Unavailable Unavailable Problems This patient has no known problems. Allergies, Adverse Reactions, Alerts This patient has no known allergies or adverse reactions. Medications This patient has no known medications. Results Test Description Test Time Test Comments Text Results Atomic Results Result Comments LIPID PANEL 2018-08-23 10:35:00 Test Item Value Reference Range Comments TRIGLYCERIDES (BEAKER) (test tdjk=564) 221 mg/dL CHOLESTEROL (BEAKER) (test yyht=675) 161 mg/dL HDL CHOLESTEROL (BEAKER) (test smze=316) 34 mg/dL LDL CHOLESTEROL CALCULATED (BEAKER) (test pxbn=858) 83 mg/dL Triglyceride Reference Range: Low Risk <150 Borderline 150- 199 High Risk 200-499 Very High Risk >=500Cholesterol Reference Range: Low Risk <200 Borderline 200-239 High Risk > 240HDL Cholesterol Reference Range: Low Risk >=60 High Risk <40LDL Cholesterol Reference Range: Optimal <100 Near Optimal 100-129 Borderline 130-159 High 160-189 Very High >=[id number] 08:24:00 Test Item Value Reference Range Comments MAGNESIUM (BEAKER) (test odjy=226) 2.2 mg/dL 1.6-2.6 BASIC METABOLIC [id number] 08:24:00 Test Item Value Reference Range Comments SODIUM (BEAKER) (test 135 meq/L 136-145 owlz=894) POTASSIUM (BEAKER) (test 5.4 meq/L 3.5-5.1 hkrt=783) CHLORIDE (BEAKER) (test 101 meq/L 98-107 cmgc=247) CO2 (BEAKER) (test 28 meq/L 22-29 pwrh=337) BLOOD UREA NITROGEN 36 mg/dL 7-21 (BEAKER) (test gark=142) CREATININE (BEAKER) (test 1.50 mg/dL 0.57-1.25 psob=487) GLUCOSE RANDOM (BEAKER) 255 mg/dL 70-105 (test ajcg=712) CALCIUM (BEAKER) (test 9.4 mg/dL 8.4-10.2 bxgu=638) EGFR (BEAKER) (test 48 mL/min/1.73 sq m ESTIMATED GFR IS NOT ccgz=0882) ACCURATE CREATININE CLEARANCE IN PREDICTING GLOMERULAR FILTRATION RATE. ESTIMATED GFR IS NOT APPLICABLE FOR DIALYSIS PATIENTS. HEPATIC FUNCTION [id number] 08:24:00 Test Item Value Reference Range Comments TOTAL PROTEIN (BEAKER) (test srwz=462) 7.8 gm/dL 6.0-8.3 ALBUMIN (BEAKER) (test zicf=7419) 3.8 g/dL 3.5-5.0 BILIRUBIN TOTAL (BEAKER) (test ldxw=299) 0.6 mg/dL 0.2-1.2 BILIRUBIN DIRECT (BEAKER) (test jhoh=775) 0.3 mg/dL 0.1-0.5 ALKALINE PHOSPHATASE (BEAKER) (test myxw=115) 129 U/L 40-150 AST (SGOT) (BEAKER) (test hhdd=831) 35 U/L 5-34 ALT (SGPT) (BEAKER) (test dypn=979) 47 U/L 6-55 LACTATE DEHYDROGENASE (LDH)2018-08-23 08:24:00 Test Item Value Reference Range Comments LACTATE DEHYDROGENASE (BEAKER) (test vjzy=470) 316 U/L 125-220 PROTHROMBIN [id number] 08:13:00 Test Item Value Reference Range Comments PROTIME (BEAKER) (test jmsl=990) 20.4 seconds 11.7-14.7 INR (BEAKER) (test gmot=577) 1.8 <=5.9 RECOMMENDED COUMADIN/WARFARIN INR THERAPY RANGESSTANDARD DOSE: 2.0 - 3.0 Includes: PROPHYLAXIS forvenous thrombosis, systemic embolization; TREATMENT for venous thrombosis and/or pulmonary embolus.HIGH RISK: Target INR is 2.5-3.5 for patients with mechanical heart valves.CBC W/PLT COUNT & AUTO [id number] 08:04:00 Test Item Value Reference Range Comments WHITE BLOOD CELL COUNT (BEAKER) (test ujul=368) 7.7 K/ L 3.5-10.5 RED BLOOD CELL COUNT (BEAKER) (test edxw=904) 4.61 M/ L 4.63-6.08 HEMOGLOBIN (BEAKER) (test hmlv=273) 14.2 GM/DL 13.7-17.5 HEMATOCRIT (BEAKER) (test isgu=815) 41.7 % 40.1-51.0 MEAN CORPUSCULAR VOLUME (BEAKER) (test zlnl=414) 90.5 fL 79.0-92.2 MEAN CORPUSCULAR HEMOGLOBIN (BEAKER) (test 30.8 pg 25.7-32.2 wxgj=433) MEAN CORPUSCULAR HEMOGLOBIN CONC (BEAKER) (test 34.1 GM/DL 32.3-36.5 faew=381) RED CELL DISTRIBUTION WIDTH (BEAKER) (test 13.1 % 11.6-14.4 flfj=080) PLATELET COUNT (BEAKER) (test kscr=689) 166 K/CU MM 150-450 MEAN PLATELET VOLUME (BEAKER) (test misf=635) 10.3 fL 9.4-12.4 NUCLEATED RED BLOOD CELLS (BEAKER) (test 0 /100 WBC 0-0 zdsg=439) NEUTROPHILS RELATIVE PERCENT (BEAKER) (test 63 % oqth=094) LYMPHOCYTES RELATIVE PERCENT (BEAKER) (test 25 % zpkv=556) MONOCYTES RELATIVE PERCENT (BEAKER) (test 9 % fpxs=351) EOSINOPHILS RELATIVE PERCENT (BEAKER) (test 2 % bmye=899) BASOPHILS RELATIVE PERCENT (BEAKER) (test 1 % khky=136) NEUTROPHILS ABSOLUTE COUNT (BEAKER) (test 4.84 K/ L 1.78-5.38 dxjg=225) LYMPHOCYTES ABSOLUTE COUNT (BEAKER) (test 1.95 K/ L 1.32-3.57 capo=851) MONOCYTES ABSOLUTE COUNT (BEAKER) (test 0.65 K/ L 0.30-0.82 aztj=940) EOSINOPHILS ABSOLUTE COUNT (BEAKER) (test 0.14 K/ L 0.04-0.54 ztyk=397) BASOPHILS ABSOLUTE COUNT (BEAKER) (test 0.07 K/ L 0.01-0.08 ykld=438) IMMATURE GRANULOCYTES-RELATIVE PERCENT (BEAKER) 1 % 0-1 (test rloe=2253) [id number] 12:54:00 Test Item Value Reference Range Comments FERRITIN (BEAKER) (test pgfc=258) 475 ng/mL 5-275 [id number] 12:33:00 Test Item Value Reference Range Comments PREALBUMIN (BEAKER) (test kihp=157) 16 mg/dL 14-45 IRON, TIBC, % SAT. (WITHOUT FERRITIN)2018-06-21 12:33:00 Test Item Value Reference Range Comments IRON (BEAKER) (test xzum=926) 100 ug/dL 40-160 TOTAL IRON BINDING CAPACITY (BEAKER) (test 289 ug/dL 250-450 ajse=180) IRON % SATURATION (2) (BEAKER) (test zzmi=0009) 35 % 20-55 [id number] 12:23:00 Test Item Value Reference Range Comments MAGNESIUM (BEAKER) (test djwl=702) 1.7 mg/dL 1.6-2.6 BASIC METABOLIC [id number] 12:23:00 Test Item Value Reference Range Comments SODIUM (BEAKER) (test 142 meq/L 136-145 lzuk=083) POTASSIUM (BEAKER) (test 3.7 meq/L 3.5-5.1 xqxx=275) CHLORIDE (BEAKER) (test 107 meq/L 98-107 wrqn=159) CO2 (BEAKER) (test 29 meq/L 22-29 vzqi=540) BLOOD UREA NITROGEN 27 mg/dL 7-21 (BEAKER) (test vcnk=224) CREATININE (BEAKER) (test 1.07 mg/dL 0.57-1.25 cmxa=992) GLUCOSE RANDOM (BEAKER) 141 mg/dL 70-105 (test qknc=992) CALCIUM (BEAKER) (test 9.0 mg/dL 8.4-10.2 ojgx=475) EGFR (BEAKER) (test 71 mL/min/1.73 sq m ESTIMATED GFR IS NOT ldop=6168) ACCURATE CREATININE CLEARANCE IN PREDICTING GLOMERULAR FILTRATION RATE. ESTIMATED GFR IS NOT APPLICABLE FOR DIALYSIS PATIENTS. HEPATIC FUNCTION [id number] 12:23:00 Test Item Value Reference Range Comments TOTAL PROTEIN (BEAKER) (test noam=504) 7.5 gm/dL 6.0-8.3 ALBUMIN (BEAKER) (test xxbu=6037) 3.7 g/dL 3.5-5.0 BILIRUBIN TOTAL (BEAKER) (test qreh=853) 0.8 mg/dL 0.2-1.2 BILIRUBIN DIRECT (BEAKER) (test vhgf=412) 0.4 mg/dL 0.1-0.5 ALKALINE PHOSPHATASE (BEAKER) (test wiab=322) 131 U/L 40-150 AST (SGOT) (BEAKER) (test nggj=254) 23 U/L 5-34 ALT (SGPT) (BEAKER) (test hmpq=801) 34 U/L 6-55 LACTATE DEHYDROGENASE (LDH)2018-06-21 12:23:00 Test Item Value Reference Range Comments LACTATE DEHYDROGENASE (BEAKER) (test gzwf=870) 308 U/L 125-220 PROTHROMBIN [id number] 11:59:00 Test Item Value Reference Range Comments PROTIME (BEAKER) (test ehzy=145) 23.1 seconds 11.7-14.7 INR (BEAKER) (test ogfm=026) 2.1 <=5.9 RECOMMENDED COUMADIN/WARFARIN INR THERAPY RANGESSTANDARD DOSE: 2.0 - 3.0 Includes: PROPHYLAXIS forvenous thrombosis, systemic embolization; TREATMENT for venous thrombosis and/or pulmonary embolus.HIGH RISK: Target INR is 2.5-3.5 for patients with mechanical heart valves.CBC W/PLT COUNT & AUTO [id number] 11:48:00 Test Item Value Reference Range Comments WHITE BLOOD CELL COUNT (BEAKER) (test vdut=842) 6.7 K/ L 3.5-10.5 RED BLOOD CELL COUNT (BEAKER) (test chjp=783) 4.38 M/ L 4.63-6.08 HEMOGLOBIN (BEAKER) (test yoiu=534) 13.5 GM/DL 13.7-17.5 HEMATOCRIT (BEAKER) (test eqsq=428) 39.7 % 40.1-51.0 MEAN CORPUSCULAR VOLUME (BEAKER) (test kekb=291) 90.6 fL 79.0-92.2 MEAN CORPUSCULAR HEMOGLOBIN (BEAKER) (test 30.8 pg 25.7-32.2 wzgk=105) MEAN CORPUSCULAR HEMOGLOBIN CONC (BEAKER) (test 34.0 GM/DL 32.3-36.5 ngtx=057) RED CELL DISTRIBUTION WIDTH (BEAKER) (test 13.8 % 11.6-14.4 ufik=191) PLATELET COUNT (BEAKER) (test jvrd=478) 138 K/CU MM 150-450 MEAN PLATELET VOLUME (BEAKER) (test svhl=856) 10.2 fL 9.4-12.4 NUCLEATED RED BLOOD CELLS (BEAKER) (test 0 /100 WBC 0-0 jsho=389) NEUTROPHILS RELATIVE PERCENT (BEAKER) (test 64 % omgf=222) LYMPHOCYTES RELATIVE PERCENT (BEAKER) (test 24 % risn=466) MONOCYTES RELATIVE PERCENT (BEAKER) (test 9 % jrvy=597) EOSINOPHILS RELATIVE PERCENT (BEAKER) (test 2 % shfo=097) BASOPHILS RELATIVE PERCENT (BEAKER) (test 1 % jhvn=126) NEUTROPHILS ABSOLUTE COUNT (BEAKER) (test 4.32 K/ L 1.78-5.38 kvep=053) LYMPHOCYTES ABSOLUTE COUNT (BEAKER) (test 1.61 K/ L 1.32-3.57 plxj=774) MONOCYTES ABSOLUTE COUNT (BEAKER) (test 0.57 K/ L 0.30-0.82 qaiq=413) EOSINOPHILS ABSOLUTE COUNT (BEAKER) (test 0.14 K/ L 0.04-0.54 nvih=978) BASOPHILS ABSOLUTE COUNT (BEAKER) (test 0.06 K/ L 0.01-0.08 drla=303) IMMATURE GRANULOCYTES-RELATIVE PERCENT (BEAKER) 1 % 0-1 (test oubh=2005) [id number] 11:01:00 Test Item Value Reference Range Comments FERRITIN (BEAKER) (test wjue=632) 514 ng/mL 5-275 IRON, TIBC, % SAT. (WITHOUT FERRITIN)2018-04-19 10:47:00 Test Item Value Reference Range Comments IRON (BEAKER) (test knok=685) 135 ug/dL 40-160 TOTAL IRON BINDING CAPACITY (BEAKER) (test 284 ug/dL 250-450 xlha=451) IRON % SATURATION (2) (BEAKER) (test rujd=5911) 48 % 20-55 [id number] 10:46:00 Test Item Value Reference Range Comments MAGNESIUM (BEAKER) (test fwct=314) 2.0 mg/dL 1.6-2.6 BASIC METABOLIC [id number] 10:46:00 Test Item Value Reference Range Comments SODIUM (BEAKER) (test 142 meq/L 136-145 ucqs=376) POTASSIUM (BEAKER) (test 4.4 meq/L 3.5-5.1 umhd=758) CHLORIDE (BEAKER) (test 105 meq/L 98-107 kjvz=627) CO2 (BEAKER) (test 28 meq/L 22-29 pwbo=790) BLOOD UREA NITROGEN 33 mg/dL 7-21 (BEAKER) (test ytuc=711) CREATININE (BEAKER) (test 1.34 mg/dL 0.57-1.25 cire=590) GLUCOSE RANDOM (BEAKER) 76 mg/dL 70-105 (test elya=982) CALCIUM (BEAKER) (test 9.3 mg/dL 8.4-10.2 aykl=457) EGFR (BEAKER) (test 55 mL/min/1.73 sq m ESTIMATED GFR IS NOT rtsv=1791) ACCURATE CREATININE CLEARANCE IN PREDICTING GLOMERULAR FILTRATION RATE. ESTIMATED GFR IS NOT APPLICABLE FOR DIALYSIS PATIENTS. HEPATIC FUNCTION [id number] 10:46:00 Test Item Value Reference Range Comments TOTAL PROTEIN (BEAKER) (test ibpv=769) 7.3 gm/dL 6.0-8.3 ALBUMIN (BEAKER) (test ftls=4724) 3.7 g/dL 3.5-5.0 BILIRUBIN TOTAL (BEAKER) (test haxh=112) 0.9 mg/dL 0.2-1.2 BILIRUBIN DIRECT (BEAKER) (test vnkt=694) 0.4 mg/dL 0.1-0.5 ALKALINE PHOSPHATASE (BEAKER) (test ohjw=478) 134 U/L 40-150 AST (SGOT) (BEAKER) (test laqy=577) 26 U/L 5-34 ALT (SGPT) (BEAKER) (test coyf=005) 39 U/L 6-55 LACTATE DEHYDROGENASE (LDH)2018-04-19 10:46:00 Test Item Value Reference Range Comments LACTATE DEHYDROGENASE (BEAKER) (test kjyt=236) 290 U/L 125-220 PROTHROMBIN [id number] 10:24:00 Test Item Value Reference Range Comments PROTIME (BEAKER) (test ddkx=945) 22.1 seconds 11.7-14.7 INR (BEAKER) (test gxjv=328) 1.9 <=5.9 RECOMMENDED COUMADIN/WARFARIN INR THERAPY RANGESSTANDARD DOSE: 2.0 - 3.0 Includes: PROPHYLAXIS forvenous thrombosis, systemic embolization; TREATMENT for venous thrombosis and/or pulmonary embolus.HIGH RISK: Target INR is 2.5-3.5 for patients with mechanical heart valves.CBC W/PLT COUNT & AUTO [id number] 10:18:00 Test Item Value Reference Range Comments WHITE BLOOD CELL COUNT (BEAKER) (test cvpi=996) 6.7 K/ L 3.5-10.5 RED BLOOD CELL COUNT (BEAKER) (test hvqg=411) 4.70 M/ L 4.63-6.08 HEMOGLOBIN (BEAKER) (test lamr=281) 13.8 GM/DL 13.7-17.5 HEMATOCRIT (BEAKER) (test qnoh=251) 40.6 % 40.1-51.0 MEAN CORPUSCULAR VOLUME (BEAKER) (test hrhf=259) 86.4 fL 79.0-92.2 MEAN CORPUSCULAR HEMOGLOBIN (BEAKER) (test 29.4 pg 25.7-32.2 xdun=546) MEAN CORPUSCULAR HEMOGLOBIN CONC (BEAKER) (test 34.0 GM/DL 32.3-36.5 nhgq=001) RED CELL DISTRIBUTION WIDTH (BEAKER) (test 13.6 % 11.6-14.4 umlv=696) PLATELET COUNT (BEAKER) (test ahyq=281) 151 K/CU MM 150-450 MEAN PLATELET VOLUME (BEAKER) (test xlva=601) 10.3 fL 9.4-12.4 NUCLEATED RED BLOOD CELLS (BEAKER) (test 0 /100 WBC 0-0 fvrb=164) NEUTROPHILS RELATIVE PERCENT (BEAKER) (test 63 % ftma=216) LYMPHOCYTES RELATIVE PERCENT (BEAKER) (test 26 % oldo=515) MONOCYTES RELATIVE PERCENT (BEAKER) (test 7 % vaao=542) EOSINOPHILS RELATIVE PERCENT (BEAKER) (test 2 % fnle=628) BASOPHILS RELATIVE PERCENT (BEAKER) (test 1 % lsyt=456) NEUTROPHILS ABSOLUTE COUNT (BEAKER) (test 4.22 K/ L 1.78-5.38 uitk=682) LYMPHOCYTES ABSOLUTE COUNT (BEAKER) (test 1.75 K/ L 1.32-3.57 tycz=109) MONOCYTES ABSOLUTE COUNT (BEAKER) (test 0.50 K/ L 0.30-0.82 njas=600) EOSINOPHILS ABSOLUTE COUNT (BEAKER) (test 0.11 K/ L 0.04-0.54 igcs=088) BASOPHILS ABSOLUTE COUNT (BEAKER) (test 0.07 K/ L 0.01-0.08 xevl=378) IMMATURE GRANULOCYTES-RELATIVE PERCENT (BEAKER) 1 % 0-1 (test yxis=9028) [id number] 10:56:00 Test Item Value Reference Range Comments FERRITIN (BEAKER) (test xyey=360) 236 ng/mL 5-275 [id number] 10:48:00 Test Item Value Reference Range Comments MAGNESIUM (BEAKER) (test twax=219) 1.8 mg/dL 1.6-2.6 BASIC METABOLIC [id number] 10:48:00 Test Item Value Reference Range Comments SODIUM (BEAKER) (test 140 meq/L 136-145 yxfm=669) POTASSIUM (BEAKER) (test 3.8 meq/L 3.5-5.1 zrdv=397) CHLORIDE (BEAKER) (test 102 meq/L 98-107 semx=914) CO2 (BEAKER) (test 28 meq/L 22-29 nnbs=251) BLOOD UREA NITROGEN 26 mg/dL 7-21 (BEAKER) (test lycu=693) CREATININE (BEAKER) (test 1.12 mg/dL 0.57-1.25 qnwm=455) GLUCOSE RANDOM (BEAKER) 137 mg/dL 70-105 (test xzpi=321) CALCIUM (BEAKER) (test 8.9 mg/dL 8.4-10.2 gdcc=337) EGFR (BEAKER) (test 68 mL/min/1.73 sq m ESTIMATED GFR IS NOT irld=5380) ACCURATE CREATININE CLEARANCE IN PREDICTING GLOMERULAR FILTRATION RATE. ESTIMATED GFR IS NOT APPLICABLE FOR DIALYSIS PATIENTS. HEPATIC FUNCTION [id number] 10:48:00 Test Item Value Reference Range Comments TOTAL PROTEIN (BEAKER) (test qjhw=025) 7.5 gm/dL 6.0-8.3 ALBUMIN (BEAKER) (test verb=8766) 3.7 g/dL 3.5-5.0 BILIRUBIN TOTAL (BEAKER) (test lnoc=630) 0.6 mg/dL 0.2-1.2 BILIRUBIN DIRECT (BEAKER) (test dblw=954) 0.3 mg/dL 0.1-0.5 ALKALINE PHOSPHATASE (BEAKER) (test wesi=535) 142 U/L 40-150 AST (SGOT) (BEAKER) (test yihv=878) 25 U/L 5-34 ALT (SGPT) (BEAKER) (test kffy=702) 46 U/L 6-55 LACTATE DEHYDROGENASE (LDH)2018-03-01 10:48:00 Test Item Value Reference Range Comments LACTATE DEHYDROGENASE (BEAKER) (test gkfn=811) 296 U/L 125-220 [id number] 10:34:00 Test Item Value Reference Range Comments TRANSFERRIN (BEAKER) (test zyhr=393) 248 mg/dL 174-382 [id number] 10:34:00 Test Item Value Reference Range Comments PREALBUMIN (BEAKER) (test nvoi=147) 18 mg/dL 14-45 IRON, TIBC, % SAT. (WITHOUT FERRITIN)2018-03-01 10:34:00 Test Item Value Reference Range Comments IRON (BEAKER) (test rdnn=681) 90 ug/dL 40-160 TOTAL IRON BINDING CAPACITY (BEAKER) (test 310 ug/dL 250-450 lwdi=058) IRON % SATURATION (2) (BEAKER) (test nwei=8831) 29 % 20-55 PLASMA FREE [id number] 10:28:00 Test Item Value Reference Range Comments HEMOGLOBIN PLASMA (BEAKER) (test qdwg=5973) 80.0 mg/dl 0.0-30.0 PROTHROMBIN [id number] 10:22:00 Test Item Value Reference Range Comments PROTIME (BEAKER) (test cuyh=518) 24.3 seconds 11.7-14.7 INR (BEAKER) (test qeeo=301) 2.2 <=5.9 RECOMMENDED COUMADIN/WARFARIN INR THERAPY RANGESSTANDARD DOSE: 2.0 - 3.0 Includes: PROPHYLAXIS forvenous thrombosis, systemic embolization; TREATMENT for venous thrombosis and/or pulmonary embolus.HIGH RISK: Target INR is 2.5-3.5 for patients with mechanical heart valves.CBC W/PLT COUNT & AUTO [id number] 10:20:00 Test Item Value Reference Range Comments WHITE BLOOD CELL COUNT (BEAKER) (test zjzh=619) 6.7 K/ L 3.5-10.5 RED BLOOD CELL COUNT (BEAKER) (test vlct=573) 4.91 M/ L 4.63-6.08 HEMOGLOBIN (BEAKER) (test ifsr=935) 13.8 GM/DL 13.7-17.5 HEMATOCRIT (BEAKER) (test briz=378) 41.3 % 40.1-51.0 MEAN CORPUSCULAR VOLUME (BEAKER) (test bgdk=062) 84.1 fL 79.0-92.2 MEAN CORPUSCULAR HEMOGLOBIN (BEAKER) (test 28.1 pg 25.7-32.2 ivfy=203) MEAN CORPUSCULAR HEMOGLOBIN CONC (BEAKER) (test 33.4 GM/DL 32.3-36.5 tztp=129) RED CELL DISTRIBUTION WIDTH (BEAKER) (test 15.3 % 11.6-14.4 btqo=797) PLATELET COUNT (BEAKER) (test ixmu=287) 166 K/CU MM 150-450 MEAN PLATELET VOLUME (BEAKER) (test wfly=601) 10.1 fL 9.4-12.4 NUCLEATED RED BLOOD CELLS (BEAKER) (test 0 /100 WBC 0-0 ploc=755) NEUTROPHILS RELATIVE PERCENT (BEAKER) (test 62 % lwcd=426) LYMPHOCYTES RELATIVE PERCENT (BEAKER) (test 28 % yjbp=421) MONOCYTES RELATIVE PERCENT (BEAKER) (test 7 % pjae=382) EOSINOPHILS RELATIVE PERCENT (BEAKER) (test 2 % nykp=930) BASOPHILS RELATIVE PERCENT (BEAKER) (test 1 % kggw=090) NEUTROPHILS ABSOLUTE COUNT (BEAKER) (test 4.12 K/ L 1.78-5.38 jiaz=604) LYMPHOCYTES ABSOLUTE COUNT (BEAKER) (test 1.91 K/ L 1.32-3.57 vrmr=598) MONOCYTES ABSOLUTE COUNT (BEAKER) (test 0.46 K/ L 0.30-0.82 cisr=663) EOSINOPHILS ABSOLUTE COUNT (BEAKER) (test 0.13 K/ L 0.04-0.54 okhh=971) BASOPHILS ABSOLUTE COUNT (BEAKER) (test 0.07 K/ L 0.01-0.08 pekp=822) IMMATURE GRANULOCYTES-RELATIVE PERCENT (BEAKER) 0 % 0-1 (test rleo=5161) [id number] 10:33:00 Test Item Value Reference Range Comments MAGNESIUM (BEAKER) (test iwup=538) 1.7 mg/dL 1.6-2.6 BASIC METABOLIC [id number] 10:33:00 Test Item Value Reference Range Comments SODIUM (BEAKER) (test 139 meq/L 136-145 vtsh=964) POTASSIUM (BEAKER) (test 4.4 meq/L 3.5-5.1 bwlm=838) CHLORIDE (BEAKER) (test 98 meq/L 98-107 kjnd=990) CO2 (BEAKER) (test 34 meq/L 22-29 fkix=530) BLOOD UREA NITROGEN 20 mg/dL 7-21 (BEAKER) (test neyw=913) CREATININE (BEAKER) (test 1.22 mg/dL 0.57-1.25 lmyg=002) GLUCOSE RANDOM (BEAKER) 267 mg/dL 70-105 (test kwgj=612) CALCIUM (BEAKER) (test 9.1 mg/dL 8.4-10.2 qvmm=050) EGFR (BEAKER) (test 62 mL/min/1.73 sq m ESTIMATED GFR IS NOT phfg=5478) ACCURATE CREATININE CLEARANCE IN PREDICTING GLOMERULAR FILTRATION RATE. ESTIMATED GFR IS NOT APPLICABLE FOR DIALYSIS PATIENTS. HEPATIC FUNCTION [id number] 10:33:00 Test Item Value Reference Range Comments TOTAL PROTEIN (BEAKER) (test qpeh=929) 7.6 gm/dL 6.0-8.3 ALBUMIN (BEAKER) (test ixfs=2021) 3.6 g/dL 3.5-5.0 BILIRUBIN TOTAL (BEAKER) (test crzt=109) 0.8 mg/dL 0.2-1.2 BILIRUBIN DIRECT (BEAKER) (test vdtg=030) 0.4 mg/dL 0.1-0.5 ALKALINE PHOSPHATASE (BEAKER) (test oukd=456) 142 U/L 40-150 AST (SGOT) (BEAKER) (test yrom=951) 29 U/L 5-34 ALT (SGPT) (BEAKER) (test isoi=575) 37 U/L 6-55 LACTATE DEHYDROGENASE (LDH)2018-01-11 10:33:00 Test Item Value Reference Range Comments LACTATE DEHYDROGENASE (BEAKER) (test rkes=802) 308 U/L 125-220 [id number] 10:29:00 Test Item Value Reference Range Comments PREALBUMIN (BEAKER) (test lkij=476) 16 mg/dL 14-45 PLASMA FREE [id number] 10:10:00 Test Item Value Reference Range Comments HEMOGLOBIN PLASMA (BEAKER) (test ilco=7916) 30.0 mg/dl 0.0-30.0 PROTHROMBIN [id number] 09:45:00 Test Item Value Reference Range Comments PROTIME (BEAKER) (test zixv=294) 25.0 seconds 11.7-14.7 INR (BEAKER) (test rpil=612) 2.3 <=5.9 RECOMMENDED COUMADIN/WARFARIN INR THERAPY RANGESSTANDARD DOSE: 2.0 - 3.0 Includes: PROPHYLAXIS forvenous thrombosis, systemic embolization; TREATMENT for venous thrombosis and/or pulmonary embolus.HIGH RISK: Target INR is 2.5-3.5 for patients with mechanical heart valves.CBC W/PLT COUNT & AUTO [id number] 09:35:00 Test Item Value Reference Range Comments WHITE BLOOD CELL COUNT (BEAKER) (test zphu=506) 5.9 K/ L 3.5-10.5 RED BLOOD CELL COUNT (BEAKER) (test cvqg=361) 4.80 M/ L 4.63-6.08 HEMOGLOBIN (BEAKER) (test ypyb=190) 13.0 GM/DL 13.7-17.5 HEMATOCRIT (BEAKER) (test feog=308) 40.9 % 40.1-51.0 MEAN CORPUSCULAR VOLUME (BEAKER) (test bdvp=749) 85.2 fL 79.0-92.2 MEAN CORPUSCULAR HEMOGLOBIN (BEAKER) (test 27.1 pg 25.7-32.2 mcqy=938) MEAN CORPUSCULAR HEMOGLOBIN CONC (BEAKER) (test 31.8 GM/DL 32.3-36.5 twyz=748) RED CELL DISTRIBUTION WIDTH (BEAKER) (test 18.1 % 11.6-14.4 yfys=465) PLATELET COUNT (BEAKER) (test knmt=634) 144 K/CU MM 150-450 MEAN PLATELET VOLUME (BEAKER) (test akbk=122) 10.1 fL 9.4-12.4 NUCLEATED RED BLOOD CELLS (BEAKER) (test 0 /100 WBC 0-0 xejp=116) NEUTROPHILS RELATIVE PERCENT (BEAKER) (test 67 % ancm=810) LYMPHOCYTES RELATIVE PERCENT (BEAKER) (test 22 % maoh=083) MONOCYTES RELATIVE PERCENT (BEAKER) (test 8 % owpn=093) EOSINOPHILS RELATIVE PERCENT (BEAKER) (test 2 % ccja=408) BASOPHILS RELATIVE PERCENT (BEAKER) (test 1 % xrnd=219) NEUTROPHILS ABSOLUTE COUNT (BEAKER) (test 3.97 K/ L 1.78-5.38 qcxb=925) LYMPHOCYTES ABSOLUTE COUNT (BEAKER) (test 1.32 K/ L 1.32-3.57 zhow=802) MONOCYTES ABSOLUTE COUNT (BEAKER) (test 0.45 K/ L 0.30-0.82 fgaj=877) EOSINOPHILS ABSOLUTE COUNT (BEAKER) (test 0.11 K/ L 0.04-0.54 kibi=291) BASOPHILS ABSOLUTE COUNT (BEAKER) (test 0.05 K/ L 0.01-0.08 oltf=205) IMMATURE GRANULOCYTES-RELATIVE PERCENT (BEAKER) 0 % 0-1 (test lbmi=4446) LACTATE DEHYDROGENASE (LDH)2017-12-01 15:16:00 Test Item Value Reference Range Comments LACTATE DEHYDROGENASE (BEAKER) (test bugw=552) 269 U/L 125-220 POCT-GLUCOSE [id number] 12:13:00 Test Item Value Reference Range Comments POC-GLUCOSE METER (BEAKER) 270 mg/dL 70-110 TESTED AT [address] (test paby=4569) [facility] [address] POCT-GLUCOSE [id number] 08:13:00 Test Item Value Reference Range Comments POC-GLUCOSE METER (BEAKER) 188 mg/dL 70-110 TESTED AT [address] (test ajkv=0769) [facility] [address] BASIC METABOLIC [id number] 07:20:00 Test Item Value Reference Range Comments SODIUM (BEAKER) (test 136 meq/L 136-145 rjeu=751) POTASSIUM (BEAKER) (test 4.3 meq/L 3.5-5.1 ylzm=469) CHLORIDE (BEAKER) (test 102 meq/L 98-107 pwuf=010) CO2 (BEAKER) (test 28 meq/L 22-29 dtqw=981) BLOOD UREA NITROGEN 21 mg/dL 7-21 (BEAKER) (test sobk=001) CREATININE (BEAKER) (test 0.99 mg/dL 0.57-1.25 ruvr=857) GLUCOSE RANDOM (BEAKER) 172 mg/dL 70-105 (test wjyl=288) CALCIUM (BEAKER) (test 8.7 mg/dL 8.4-10.2 rjpy=252) EGFR (BEAKER) (test 78 mL/min/1.73 sq m ESTIMATED GFR IS NOT tyul=8434) ACCURATE CREATININE CLEARANCE IN PREDICTING GLOMERULAR FILTRATION RATE. ESTIMATED GFR IS NOT APPLICABLE FOR DIALYSIS PATIENTS. [id number] 06:57:00 Test Item Value Reference Range Comments PARTIAL THROMBOPLASTIN TIME (BEAKER) (test 75.9 seconds 22.5-36.0 rgdq=397) PROTHROMBIN TIME/[id number] 06:56:00 Test Item Value Reference Range Comments PROTIME (BEAKER) (test vlqf=970) 20.9 seconds 11.7-14.7 INR (BEAKER) (test vish=588) 1.8 <=5.9 RECOMMENDED COUMADIN/WARFARIN INR THERAPY RANGESSTANDARD DOSE: 2.0 - 3.0 Includes: PROPHYLAXIS forvenous thrombosis, systemic embolization; TREATMENT for venous thrombosis and/or pulmonary embolus.HIGH RISK: Target INR is 2.5-3.5 for patients with mechanical heart valves.POCT-GLUCOSE [id number] 21:26:00 Test Item Value Reference Range Comments POC-GLUCOSE METER (BEAKER) 201 mg/dL 70-110 TESTED AT [facility] [address] [facility] (test pkjn=5187) [facility] [address] POCT-GLUCOSE [id number] 17:22:00 Test Item Value Reference Range Comments POC-GLUCOSE METER (BEAKER) 342 mg/dL 70-110 Notified KENZIE BARCLAY/TESTED AT [facility] (test cvam=0924) [address] [facility] [address] POCT-GLUCOSE [id number] 09:17:00 Test Item Value Reference Range Comments POC-GLUCOSE METER (BEAKER) 280 mg/dL 70-110 TESTED AT [facility] [address] (test eajy=2311) [facility] [address] BASIC METABOLIC [id number] 07:13:00 Test Item Value Reference Range Comments SODIUM (BEAKER) (test 139 meq/L 136-145 khwx=186) POTASSIUM (BEAKER) (test 4.1 meq/L 3.5-5.1 ntcz=063) CHLORIDE (BEAKER) (test 105 meq/L 98-107 hmwh=131) CO2 (BEAKER) (test 27 meq/L 22-29 umrb=288) BLOOD UREA NITROGEN 22 mg/dL 7-21 (BEAKER) (test gxdq=834) CREATININE (BEAKER) (test 1.01 mg/dL 0.57-1.25 mvje=420) GLUCOSE RANDOM (BEAKER) 301 mg/dL 70-105 (test cgge=249) CALCIUM (BEAKER) (test 8.9 mg/dL 8.4-10.2 evhv=839) EGFR (BEAKER) (test 77 mL/min/1.73 sq m ESTIMATED GFR IS NOT difb=6326) ACCURATE CREATININE CLEARANCE IN PREDICTING GLOMERULAR FILTRATION RATE. ESTIMATED GFR IS NOT APPLICABLE FOR DIALYSIS PATIENTS. [id number] 06:59:00 Test Item Value Reference Range Comments PARTIAL THROMBOPLASTIN TIME (BEAKER) (test 70.0 seconds 22.5-36.0 okvr=362) PROTHROMBIN TIME/[id number] 06:58:00 Test Item Value Reference Range Comments PROTIME (BEAKER) (test qnrv=564) 19.4 seconds 11.7-14.7 INR (BEAKER) (test mxso=404) 1.6 <=5.9 RECOMMENDED COUMADIN/WARFARIN INR THERAPY RANGESSTANDARD DOSE: 2.0 - 3.0 Includes: PROPHYLAXIS forvenous thrombosis, systemic embolization; TREATMENT for venous thrombosis and/or pulmonary embolus.HIGH RISK: Target INR is 2.5-3.5 for patients with mechanical heart valves.CBC (HEMOGRAM ONLY)2017-11-30 06:58:00 Test Item Value Reference Range Comments WHITE BLOOD CELL COUNT (BEAKER) (test ihlf=643) 7.1 K/ L 3.5-10.5 RED BLOOD CELL COUNT (BEAKER) (test wwip=876) 4.15 M/ L 4.63-6.08 HEMOGLOBIN (BEAKER) (test pbqu=137) 10.1 GM/DL 13.7-17.5 HEMATOCRIT (BEAKER) (test nmcw=770) 33.8 % 40.1-51.0 MEAN CORPUSCULAR VOLUME (BEAKER) (test qkuq=159) 81.4 fL 79.0-92.2 MEAN CORPUSCULAR HEMOGLOBIN (BEAKER) (test 24.3 pg 25.7-32.2 icib=272) MEAN CORPUSCULAR HEMOGLOBIN CONC (BEAKER) (test 29.9 GM/DL 32.3-36.5 nnlb=806) RED CELL DISTRIBUTION WIDTH (BEAKER) (test 18.7 % 11.6-14.4 uigh=861) PLATELET COUNT (BEAKER) (test myjd=651) 146 K/CU MM 150-450 MEAN PLATELET VOLUME (BEAKER) (test tdmp=195) 10.3 fL 9.4-12.4 NUCLEATED RED BLOOD CELLS (BEAKER) (test 0 /100 WBC 0-0 dfdy=438) POCT-GLUCOSE [id number] 22:52:00 Test Item Value Reference Range Comments POC-GLUCOSE METER (BEAKER) 267 mg/dL 70-110 TESTED AT [place] [address] [address] (test wgiv=5131) [facility] [address] POCT-GLUCOSE [id number] 17:28:00 Test Item Value Reference Range Comments POC-GLUCOSE METER (BEAKER) 236 mg/dL 70-110 TESTED AT [address] (test hcur=8588) [facility] [address] POCT-GLUCOSE [id number] 12:11:00 Test Item Value Reference Range Comments POC-GLUCOSE METER (BEAKER) 365 mg/dL 70-110 Notified KENZIE BARCLAY/TESTED AT [facility] (test ntdt=7000) [facility] [address] [facility] [address] CBC (HEMOGRAM ONLY)2017-11-29 08:00:00 Test Item Value Reference Range Comments WHITE BLOOD CELL COUNT (BEAKER) (test peyd=993) 7.3 K/ L 3.5-10.5 RED BLOOD CELL COUNT (BEAKER) (test pwdj=174) 4.18 M/ L 4.63-6.08 HEMOGLOBIN (BEAKER) (test oats=430) 9.9 GM/DL 13.7-17.5 HEMATOCRIT (BEAKER) (test crpu=710) 33.8 % 40.1-51.0 MEAN CORPUSCULAR VOLUME (BEAKER) (test ingi=079) 80.9 fL 79.0-92.2 MEAN CORPUSCULAR HEMOGLOBIN (BEAKER) (test 23.7 pg 25.7-32.2 cswg=158) MEAN CORPUSCULAR HEMOGLOBIN CONC (BEAKER) (test 29.3 GM/DL 32.3-36.5 gaih=480) RED CELL DISTRIBUTION WIDTH (BEAKER) (test 18.3 % 11.6-14.4 yoof=344) PLATELET COUNT (BEAKER) (test brob=353) 163 K/CU MM 150-450 MEAN PLATELET VOLUME (BEAKER) (test tsvo=131) 10.3 fL 9.4-12.4 NUCLEATED RED BLOOD CELLS (BEAKER) (test 1 /100 WBC 0-0 uxjn=819) POCT-GLUCOSE [id number] 07:56:00 Test Item Value Reference Range Comments POC-GLUCOSE METER (BEAKER) 176 mg/dL 70-110 TESTED AT [facility] [address] [place] [address] (test ncbn=3673) [facility] [address] BASIC METABOLIC [id number] 05:49:00 Test Item Value Reference Range Comments SODIUM (BEAKER) (test 140 meq/L 136-145 skmw=707) POTASSIUM (BEAKER) (test 4.1 meq/L 3.5-5.1 tevr=516) CHLORIDE (BEAKER) (test 103 meq/L 98-107 ocgp=408) CO2 (BEAKER) (test 29 meq/L 22-29 jzid=746) BLOOD UREA NITROGEN 22 mg/dL 7-21 (BEAKER) (test gpfk=187) CREATININE (BEAKER) (test 1.12 mg/dL 0.57-1.25 iuel=918) GLUCOSE RANDOM (BEAKER) 202 mg/dL 70-105 (test whan=425) CALCIUM (BEAKER) (test 8.5 mg/dL 8.4-10.2 fvqg=008) EGFR (BEAKER) (test 68 mL/min/1.73 sq m ESTIMATED GFR IS NOT iiiq=2789) ACCURATE CREATININE CLEARANCE IN PREDICTING GLOMERULAR FILTRATION RATE. ESTIMATED GFR IS NOT APPLICABLE FOR DIALYSIS PATIENTS. [id number] 05:34:00 Test Item Value Reference Range Comments PARTIAL THROMBOPLASTIN TIME (BEAKER) (test 90.9 seconds 22.5-36.0 pfle=112) PROTHROMBIN [id number] 05:32:00 Test Item Value Reference Range Comments PROTIME (BEAKER) (test zxpn=099) 19.8 seconds 11.7-14.7 INR (BEAKER) (test yqen=273) 1.7 <=5.9 RECOMMENDED COUMADIN/WARFARIN INR THERAPY RANGESSTANDARD DOSE: 2.0 - 3.0 Includes: PROPHYLAXIS forvenous thrombosis, systemic embolization; TREATMENT for venous thrombosis and/or pulmonary embolus.HIGH RISK: Target INR is 2.5-3.5 for patients with mechanical heart valves.POCT-GLUCOSE [id number] 21:35:00 Test Item Value Reference Range Comments POC-GLUCOSE METER (BEAKER) 218 mg/dL 70-110 TESTED AT [address] (test yhbo=9517) [place] [address] POCT-GLUCOSE [id number] 16:50:00 Test Item Value Reference Range Comments POC-GLUCOSE METER (BEAKER) 199 mg/dL 70-110 TESTED AT [address] (test akdn=9924) [place] [id number] POCT-GLUCOSE [id number] 12:06:00 Test Item Value Reference Range Comments POC-GLUCOSE METER (BEAKER) 208 mg/dL 70-110 TESTED AT [address] (test osxg=2142) [place] [address] POCT-GLUCOSE [id number] 07:57:00 Test Item Value Reference Range Comments POC-GLUCOSE METER (BEAKER) 216 mg/dL 70-110 TESTED AT [address] (test psdt=3230) [place] [address] CBC (HEMOGRAM ONLY)2017-11-28 06:50:00 Test Item Value Reference Range Comments WHITE BLOOD CELL COUNT (BEAKER) (test vbce=995) 7.2 K/ L 3.5-10.5 RED BLOOD CELL COUNT (BEAKER) (test nqvg=955) 3.98 M/ L 4.63-6.08 HEMOGLOBIN (BEAKER) (test aeyl=019) 9.6 GM/DL 13.7-17.5 HEMATOCRIT (BEAKER) (test fcus=813) 31.5 % 40.1-51.0 MEAN CORPUSCULAR VOLUME (BEAKER) (test qram=517) 79.1 fL 79.0-92.2 MEAN CORPUSCULAR HEMOGLOBIN (BEAKER) (test 24.1 pg 25.7-32.2 tsuj=137) MEAN CORPUSCULAR HEMOGLOBIN CONC (BEAKER) (test 30.5 GM/DL 32.3-36.5 mvai=420) RED CELL DISTRIBUTION WIDTH (BEAKER) (test 16.8 % 11.6-14.4 ouhd=240) PLATELET COUNT (BEAKER) (test zbxx=825) 176 K/CU MM 150-450 MEAN PLATELET VOLUME (BEAKER) (test ooca=711) 10.5 fL 9.4-12.4 NUCLEATED RED BLOOD CELLS (BEAKER) (test 1 /100 WBC 0-0 rjru=346) BASIC METABOLIC [id number] 05:44:00 Test Item Value Reference Range Comments SODIUM (BEAKER) (test 140 meq/L 136-145 oaft=906) POTASSIUM (BEAKER) (test 3.5 meq/L 3.5-5.1 fkcg=056) CHLORIDE (BEAKER) (test 103 meq/L 98-107 vsad=597) CO2 (BEAKER) (test 28 meq/L 22-29 zxml=654) BLOOD UREA NITROGEN 20 mg/dL 7-21 (BEAKER) (test shbq=899) CREATININE (BEAKER) (test 0.98 mg/dL 0.57-1.25 ldbk=453) GLUCOSE RANDOM (BEAKER) 239 mg/dL 70-105 (test prka=133) CALCIUM (BEAKER) (test 8.2 mg/dL 8.4-10.2 htsq=578) EGFR (BEAKER) (test 79 mL/min/1.73 sq m ESTIMATED GFR IS NOT lxkt=0671) ACCURATE CREATININE CLEARANCE IN PREDICTING GLOMERULAR FILTRATION RATE. ESTIMATED GFR IS NOT APPLICABLE FOR DIALYSIS PATIENTS. [id number] 05:42:00 Test Item Value Reference Range Comments PARTIAL THROMBOPLASTIN TIME (BEAKER) (test 88.4 seconds 22.5-36.0 fuer=939) PROTHROMBIN TIME/[id number] 05:41:00 Test Item Value Reference Range Comments PROTIME (BEAKER) (test xhao=719) 17.8 seconds 11.7-14.7 INR (BEAKER) (test kaor=494) 1.5 <=5.9 RECOMMENDED COUMADIN/WARFARIN INR THERAPY RANGESSTANDARD DOSE: 2.0 - 3.0 Includes: PROPHYLAXIS forvenous thrombosis, systemic embolization; TREATMENT for venous thrombosis and/or pulmonary embolus.HIGH RISK: Target INR is 2.5-3.5 for patients with mechanical heart valves.[id number] 23:10:00 Test Item Value Reference Range Comments PARTIAL THROMBOPLASTIN TIME (BEAKER) (test 72.0 seconds 22.5-36.0 sohw=001) POCT-GLUCOSE [id number] 21:24:00 Test Item Value Reference Range Comments POC-GLUCOSE METER (BEAKER) 244 mg/dL 70-110 TESTED AT [address] (test expp=0724) [place] [address] POCT-GLUCOSE [id number] 17:33:00 Test Item Value Reference Range Comments POC-GLUCOSE METER (BEAKER) 119 mg/dL 70-110 TESTED AT [address] (test vhot=7269) [facility] [address] [id number] 16:23:00 Test Item Value Reference Range Comments PARTIAL THROMBOPLASTIN TIME (BEAKER) (test 54.0 seconds 22.5-36.0 lgmz=637) [id number] 13:58:00 Test Item Value Reference Range Comments PARTIAL THROMBOPLASTIN TIME (BEAKER) (test 122.2 seconds 22.5-36.0 rann=439) CBC (HEMOGRAM ONLY)2017-11-27 13:51:00 Test Item Value Reference Range Comments WHITE BLOOD CELL COUNT (BEAKER) (test vklc=641) 7.1 K/ L 3.5-10.5 RED BLOOD CELL COUNT (BEAKER) (test nbjx=299) 4.00 M/ L 4.63-6.08 HEMOGLOBIN (BEAKER) (test opsg=580) 9.4 GM/DL 13.7-17.5 HEMATOCRIT (BEAKER) (test aura=643) 31.2 % 40.1-51.0 MEAN CORPUSCULAR VOLUME (BEAKER) (test ibjy=039) 78.0 fL 79.0-92.2 MEAN CORPUSCULAR HEMOGLOBIN (BEAKER) (test 23.5 pg 25.7-32.2 mpsa=045) MEAN CORPUSCULAR HEMOGLOBIN CONC (BEAKER) (test 30.1 GM/DL 32.3-36.5 qosw=067) RED CELL DISTRIBUTION WIDTH (BEAKER) (test 16.2 % 11.6-14.4 piwl=755) PLATELET COUNT (BEAKER) (test zduu=769) 176 K/CU MM 150-450 MEAN PLATELET VOLUME (BEAKER) (test bvqg=730) 10.6 fL 9.4-12.4 NUCLEATED RED BLOOD CELLS (BEAKER) (test 1 /100 WBC 0-0 ayul=533) POCT-GLUCOSE [id number] 12:29:00 Test Item Value Reference Range Comments POC-GLUCOSE METER (BEAKER) 224 mg/dL 70-110 TESTED AT [address] (test skgj=4775) [place] [address] HEMOGLOBIN [id number] 10:32:00 Test Item Value Reference Range Comments HEMOGLOBIN A1C (BEAKER) (test azcf=195) 7.0 % 4.3-6.1 POCT-GLUCOSE [id number] 08:37:00 Test Item Value Reference Range Comments POC-GLUCOSE METER (BEAKER) 262 mg/dL 70-110 TESTED AT [address] (test wouo=0472) [place] [address] BASIC METABOLIC [id number] 06:37:00 Test Item Value Reference Range Comments SODIUM (BEAKER) (test 139 meq/L 136-145 qefs=688) POTASSIUM (BEAKER) (test 3.8 meq/L 3.5-5.1 sbzf=940) CHLORIDE (BEAKER) (test 103 meq/L 98-107 zobc=451) CO2 (BEAKER) (test 27 meq/L 22-29 wdbv=671) BLOOD UREA NITROGEN 24 mg/dL 7-21 (BEAKER) (test odgv=648) CREATININE (BEAKER) (test 1.28 mg/dL 0.57-1.25 fbzr=930) GLUCOSE RANDOM (BEAKER) 280 mg/dL 70-105 (test glgo=750) CALCIUM (BEAKER) (test 8.6 mg/dL 8.4-10.2 hdhr=752) EGFR (BEAKER) (test 58 mL/min/1.73 sq m ESTIMATED GFR IS NOT anlh=5506) ACCURATE CREATININE CLEARANCE IN PREDICTING GLOMERULAR FILTRATION RATE. ESTIMATED GFR IS NOT APPLICABLE FOR DIALYSIS PATIENTS. [id number] 06:07:00 Test Item Value Reference Range Comments PARTIAL THROMBOPLASTIN TIME (BEAKER) (test 110.2 seconds 22.5-36.0 bqhm=986) PROTHROMBIN TIME/[id number] 05:42:00 Test Item Value Reference Range Comments PROTIME (BEAKER) (test ihzf=071) 15.4 seconds 11.7-14.7 INR (BEAKER) (test ksrt=350) 1.2 <=5.9 RECOMMENDED COUMADIN/WARFARIN INR THERAPY RANGESSTANDARD DOSE: 2.0 - 3.0 Includes: PROPHYLAXIS forvenous thrombosis, systemic embolization; TREATMENT for venous thrombosis and/or pulmonary embolus.HIGH RISK: Target INR is 2.5-3.5 for patients with mechanical heart valves.[id number] 23:05:00 Test Item Value Reference Range Comments PARTIAL THROMBOPLASTIN TIME (BEAKER) (test 90.2 seconds 22.5-36.0 vthn=998) POCT-GLUCOSE [id number] 21:36:00 Test Item Value Reference Range Comments POC-GLUCOSE METER (BEAKER) 165 mg/dL 70-110 TESTED AT [address] (test hbzv=9418) [facility] [address] [id number] 17:31:00 Test Item Value Reference Range Comments PARTIAL THROMBOPLASTIN TIME (BEAKER) (test 81.4 seconds 22.5-36.0 rvap=112) POCT-GLUCOSE [id number] 16:47:00 Test Item Value Reference Range Comments POC-GLUCOSE METER (BEAKER) 101 mg/dL 70-110 TESTED AT [address] (test ovmg=3532) [facility] [address] POCT-GLUCOSE [id number] 11:52:00 Test Item Value Reference Range Comments POC-GLUCOSE METER (BEAKER) 97 mg/dL 70-110 TESTED AT [facility] [address] (test suzr=3036) [facility] [address] [id number] 08:26:00 Test Item Value Reference Range Comments LIPASE (BEAKER) (test dpwh=121) 31 U/L 8-78 BASIC METABOLIC [id number] 08:26:00 Test Item Value Reference Range Comments SODIUM (BEAKER) (test 138 meq/L 136-145 reui=944) POTASSIUM (BEAKER) (test 3.5 meq/L 3.5-5.1 hzqw=888) CHLORIDE (BEAKER) (test 102 meq/L 98-107 nwir=803) CO2 (BEAKER) (test 27 meq/L 22-29 bkqb=582) BLOOD UREA NITROGEN 18 mg/dL 7-21 (BEAKER) (test fyrd=773) CREATININE (BEAKER) (test 0.97 mg/dL 0.57-1.25 opmm=637) GLUCOSE RANDOM (BEAKER) 176 mg/dL 70-105 (test ztyk=687) CALCIUM (BEAKER) (test 8.8 mg/dL 8.4-10.2 jnyl=635) EGFR (BEAKER) (test 80 mL/min/1.73 sq m ESTIMATED GFR IS NOT kudx=6027) ACCURATE CREATININE CLEARANCE IN PREDICTING GLOMERULAR FILTRATION RATE. ESTIMATED GFR IS NOT APPLICABLE FOR DIALYSIS PATIENTS. HEPATIC FUNCTION [id number] 08:26:00 Test Item Value Reference Range Comments TOTAL PROTEIN (BEAKER) (test pkpv=319) 6.7 gm/dL 6.0-8.3 ALBUMIN (BEAKER) (test ontw=8627) 3.2 g/dL 3.5-5.0 BILIRUBIN TOTAL (BEAKER) (test eafl=346) 0.6 mg/dL 0.2-1.2 BILIRUBIN DIRECT (BEAKER) (test ufxf=382) 0.2 mg/dL 0.1-0.5 ALKALINE PHOSPHATASE (BEAKER) (test uazb=088) 95 U/L 40-150 AST (SGOT) (BEAKER) (test mktl=669) 22 U/L 5-34 ALT (SGPT) (BEAKER) (test kqos=815) 23 U/L 6-55 POCT-GLUCOSE [id number] 08:11:00 Test Item Value Reference Range Comments POC-GLUCOSE METER (BEAKER) 198 mg/dL 70-110 TESTED AT [facility] [address] (test evbc=7926) [place] [address] [id number] 07:29:00 Test Item Value Reference Range Comments PARTIAL THROMBOPLASTIN TIME (BEAKER) (test 102.0 seconds 22.5-36.0 ypgr=930) PROTHROMBIN TIME/[id number] 07:23:00 Test Item Value Reference Range Comments PROTIME (BEAKER) (test ikfv=174) 15.4 seconds 11.7-14.7 INR (BEAKER) (test qwnq=589) 1.2 <=5.9 RECOMMENDED COUMADIN/WARFARIN INR THERAPY RANGESSTANDARD DOSE: 2.0 - 3.0 Includes: PROPHYLAXIS forvenous thrombosis, systemic embolization; TREATMENT for venous thrombosis and/or pulmonary embolus.HIGH RISK: Target INR is 2.5-3.5 for patients with mechanical heart valves.CBC (HEMOGRAM ONLY)2017-11-26 07:09:00 Test Item Value Reference Range Comments WHITE BLOOD CELL COUNT (BEAKER) (test cvdt=264) 7.3 K/ L 3.5-10.5 RED BLOOD CELL COUNT (BEAKER) (test tvil=743) 4.18 M/ L 4.63-6.08 HEMOGLOBIN (BEAKER) (test dlhv=117) 9.7 GM/DL 13.7-17.5 HEMATOCRIT (BEAKER) (test yamc=906) 32.0 % 40.1-51.0 MEAN CORPUSCULAR VOLUME (BEAKER) (test rlbk=293) 76.6 fL 79.0-92.2 MEAN CORPUSCULAR HEMOGLOBIN (BEAKER) (test 23.2 pg 25.7-32.2 ocdz=079) MEAN CORPUSCULAR HEMOGLOBIN CONC (BEAKER) (test 30.3 GM/DL 32.3-36.5 dtnb=451) RED CELL DISTRIBUTION WIDTH (BEAKER) (test 16.0 % 11.6-14.4 umkk=138) PLATELET COUNT (BEAKER) (test yqvp=474) 179 K/CU MM 150-450 MEAN PLATELET VOLUME (BEAKER) (test rzmf=046) 10.0 fL 9.4-12.4 NUCLEATED RED BLOOD CELLS (BEAKER) (test 0 /100 WBC 0-0 crar=076) [id number] 23:49:00 Test Item Value Reference Range Comments PARTIAL THROMBOPLASTIN TIME (BEAKER) (test 60.2 seconds 22.5-36.0 zixc=389) POCT-GLUCOSE [id number] 21:53:00 Test Item Value Reference Range Comments POC-GLUCOSE METER (BEAKER) 309 mg/dL 70-110 TESTED AT [facility] [address] [facility] (test hgoo=1187) [facility] [address] POCT-GLUCOSE [id number] 17:31:00 Test Item Value Reference Range Comments POC-GLUCOSE METER (BEAKER) 331 mg/dL 70-110 TESTED AT [facility] [address] [place] [address] (test fcwe=5485) [facility] [address] RAD, ABDOMEN/KUB, 1 VIEW [id number] 15:59:00LABS: [facility] [place] [address] [phone] () (FAX)Reason for exam:->epigastric painFINAL REPORT ONE [...] Brewster Verified Date/Time: 11/25/2017 15:59:39 Reading Location: [facility] [id number] Ortho ConsultReading Room [id number] 15:57:00 Test Item Value Reference Range Comments PARTIAL THROMBOPLASTIN TIME (BEAKER) (test 100.6 seconds 22.5-36.0 gwys=885) HEMOGLOBIN AND [id number] 15:41:00 Test Item Value Reference Range Comments HEMOGLOBIN (BEAKER) (test pfoi=399) 9.6 GM/DL 13.7-17.5 HEMATOCRIT (BEAKER) (test mafx=502) 30.6 % 40.1-51.0 POCT-GLUCOSE [id number] 13:13:00 Test Item Value Reference Range Comments POC-GLUCOSE METER (BEAKER) 290 mg/dL 70-110 TESTED AT [address] (test vrvv=5882) [facility] [address] POCT-GLUCOSE [id number] 08:57:00 Test Item Value Reference Range Comments POC-GLUCOSE METER (BEAKER) 198 mg/dL 70-110 TESTED AT [address] (test ltye=1497) [facility] [address] [id number] 08:26:00 Test Item Value Reference Range Comments PARTIAL THROMBOPLASTIN TIME (BEAKER) (test 61.2 seconds 22.5-36.0 rprq=211) BASIC METABOLIC [id number] 05:38:00 Test Item Value Reference Range Comments SODIUM (BEAKER) (test 134 meq/L 136-145 qulm=527) POTASSIUM (BEAKER) (test 3.8 meq/L 3.5-5.1 qjsa=915) CHLORIDE (BEAKER) (test 102 meq/L 98-107 xbot=181) CO2 (BEAKER) (test 26 meq/L 22-29 eqtv=617) BLOOD UREA NITROGEN 16 mg/dL 7-21 (BEAKER) (test jgqi=625) CREATININE (BEAKER) (test 1.01 mg/dL 0.57-1.25 dcep=900) GLUCOSE RANDOM (BEAKER) 231 mg/dL 70-105 (test cdsk=147) CALCIUM (BEAKER) (test 8.7 mg/dL 8.4-10.2 ytfq=808) EGFR (BEAKER) (test 77 mL/min/1.73 sq m ESTIMATED GFR IS NOT vgvl=2898) ACCURATE CREATININE CLEARANCE IN PREDICTING GLOMERULAR FILTRATION RATE. ESTIMATED GFR IS NOT APPLICABLE FOR DIALYSIS PATIENTS. [id number] 05:19:00 Test Item Value Reference Range Comments PARTIAL THROMBOPLASTIN TIME (BEAKER) (test 130.0 seconds 22.5-36.0 tnnr=209) PROTHROMBIN TIME/[id number] 05:10:00 Test Item Value Reference Range Comments PROTIME (BEAKER) (test mmis=680) 15.6 seconds 11.7-14.7 INR (BEAKER) (test nuum=801) 1.3 <=5.9 RECOMMENDED COUMADIN/WARFARIN INR THERAPY RANGESSTANDARD DOSE: 2.0 - 3.0 Includes: PROPHYLAXIS forvenous thrombosis, systemic embolization; TREATMENT for venous thrombosis and/or pulmonary embolus.HIGH RISK: Target INR is 2.5-3.5 for patients with mechanical heart valves.CBC (HEMOGRAM ONLY)2017-11-25 04:57:00 Test Item Value Reference Range Comments WHITE BLOOD CELL COUNT (BEAKER) (test oobf=169) 7.1 K/ L 3.5-10.5 RED BLOOD CELL COUNT (BEAKER) (test mkat=216) 3.89 M/ L 4.63-6.08 HEMOGLOBIN (BEAKER) (test dxdp=143) 9.1 GM/DL 13.7-17.5 HEMATOCRIT (BEAKER) (test fuaq=604) 30.7 % 40.1-51.0 MEAN CORPUSCULAR VOLUME (BEAKER) (test ykci=648) 78.9 fL 79.0-92.2 MEAN CORPUSCULAR HEMOGLOBIN (BEAKER) (test 23.4 pg 25.7-32.2 djgv=931) MEAN CORPUSCULAR HEMOGLOBIN CONC (BEAKER) (test 29.6 GM/DL 32.3-36.5 ghhh=169) RED CELL DISTRIBUTION WIDTH (BEAKER) (test 15.7 % 11.6-14.4 lxrg=540) PLATELET COUNT (BEAKER) (test saon=024) 163 K/CU MM 150-450 MEAN PLATELET VOLUME (BEAKER) (test ymmw=501) 9.8 fL 9.4-12.4 NUCLEATED RED BLOOD CELLS (BEAKER) (test 0 /100 WBC 0-0 ejbd=814) [id number] 22:42:00 Test Item Value Reference Range Comments PARTIAL THROMBOPLASTIN TIME (BEAKER) (test 63.8 seconds 22.5-36.0 vosh=952) POCT-GLUCOSE [id number] 21:35:00 Test Item Value Reference Range Comments POC-GLUCOSE METER (BEAKER) 215 mg/dL 70-110 TESTED AT [facility] [address] [facility] (test ucdy=0360) [facility] [address] POCT-GLUCOSE [id number] 17:39:00 Test Item Value Reference Range Comments POC-GLUCOSE METER (BEAKER) 278 mg/dL 70-110 TESTED AT [address] (test lovq=5586) [facility] [address] [id number] 14:16:00 Test Item Value Reference Range Comments PARTIAL THROMBOPLASTIN TIME (BEAKER) (test 57.4 seconds 22.5-36.0 ofcc=823) POCT-GLUCOSE [id number] 13:48:00 Test Item Value Reference Range Comments POC-GLUCOSE METER (BEAKER) 215 mg/dL 70-110 TESTED AT [address] (test qtgz=8446) [facility] [address] POCT-GLUCOSE [id number] 08:27:00 Test Item Value Reference Range Comments POC-GLUCOSE METER (BEAKER) 322 mg/dL 70-110 TESTED AT [address] (test dmri=6965) [facility] [address] BASIC METABOLIC [id number] 07:05:00 Test Item Value Reference Range Comments SODIUM (BEAKER) (test 134 meq/L 136-145 lnuu=618) POTASSIUM (BEAKER) (test 4.6 meq/L 3.5-5.1 Specimen slightly mpgd=162) hemolyzed CHLORIDE (BEAKER) (test 104 meq/L 98-107 redt=047) CO2 (BEAKER) (test 23 meq/L 22-29 vhwp=487) BLOOD UREA NITROGEN 16 mg/dL 7-21 (BEAKER) (test hurl=093) CREATININE (BEAKER) (test 1.01 mg/dL 0.57-1.25 Specimen slightly hvpw=122) hemolyzed GLUCOSE RANDOM (BEAKER) 325 mg/dL 70-105 (test ptlc=913) CALCIUM (BEAKER) (test 8.5 mg/dL 8.4-10.2 hfvm=866) EGFR (BEAKER) (test 77 mL/min/1.73 sq m ESTIMATED GFR IS NOT kylc=3721) ACCURATE CREATININE CLEARANCE IN PREDICTING GLOMERULAR FILTRATION RATE. ESTIMATED GFR IS NOT APPLICABLE FOR DIALYSIS PATIENTS. CBC (HEMOGRAM ONLY)2017-11-24 06:48:00 Test Item Value Reference Range Comments WHITE BLOOD CELL COUNT (BEAKER) (test lsbt=326) 6.6 K/ L 3.5-10.5 RED BLOOD CELL COUNT (BEAKER) (test rzwq=710) 3.94 M/ L 4.63-6.08 HEMOGLOBIN (BEAKER) (test fzpi=644) 9.3 GM/DL 13.7-17.5 HEMATOCRIT (BEAKER) (test qfvo=712) 30.8 % 40.1-51.0 MEAN CORPUSCULAR VOLUME (BEAKER) (test fmjq=954) 78.2 fL 79.0-92.2 MEAN CORPUSCULAR HEMOGLOBIN (BEAKER) (test 23.6 pg 25.7-32.2 xcvt=293) MEAN CORPUSCULAR HEMOGLOBIN CONC (BEAKER) (test 30.2 GM/DL 32.3-36.5 pmkt=563) RED CELL DISTRIBUTION WIDTH (BEAKER) (test 15.1 % 11.6-14.4 ceja=934) PLATELET COUNT (BEAKER) (test oqiz=679) 148 K/CU MM 150-450 MEAN PLATELET VOLUME (BEAKER) (test vlne=414) 10.2 fL 9.4-12.4 NUCLEATED RED BLOOD CELLS (BEAKER) (test 0 /100 WBC 0-0 jrss=350) PROTHROMBIN TIME/[id number] 06:46:00 Test Item Value Reference Range Comments PROTIME (BEAKER) (test tyur=229) 17.1 seconds 11.7-14.7 INR (BEAKER) (test rnpn=026) 1.4 <=5.9 RECOMMENDED COUMADIN/WARFARIN INR THERAPY RANGESSTANDARD DOSE: 2.0 - 3.0 Includes: PROPHYLAXIS forvenous thrombosis, systemic embolization; TREATMENT for venous thrombosis and/or pulmonary embolus.HIGH RISK: Target INR is 2.5-3.5 for patients with mechanical heart valves.[id number] 06:46:00 Test Item Value Reference Range Comments PARTIAL THROMBOPLASTIN TIME (BEAKER) (test 52.5 seconds 22.5-36.0 gviu=805) [id number] 22:51:00 Test Item Value Reference Range Comments PARTIAL THROMBOPLASTIN TIME (BEAKER) (test 45.0 seconds 22.5-36.0 qwzg=212) POCT-GLUCOSE [id number] 20:33:00 Test Item Value Reference Range Comments POC-GLUCOSE METER (BEAKER) 290 mg/dL 70-110 TESTED AT [address] (test extq=5921) [facility] [address] POCT-GLUCOSE [id number] 17:18:00 Test Item Value Reference Range Comments POC-GLUCOSE METER (BEAKER) 281 mg/dL 70-110 TESTED AT [address] (test osoa=0085) [facility] [address] POCT-GLUCOSE [id number] 17:00:00 Test Item Value Reference Range Comments POC-GLUCOSE METER (BEAKER) 169 mg/dL 70-110 TESTED AT [address] (test qooo=7740) [facility] [address] POCT-GLUCOSE [id number] 17:00:00 Test Item Value Reference Range Comments POC-GLUCOSE METER (BEAKER) 232 mg/dL 70-110 TESTED AT [address] (test pnlq=3744) [facility] [address] [id number] 15:43:00 Test Item Value Reference Range Comments PARTIAL THROMBOPLASTIN TIME (BEAKER) (test 36.2 seconds 22.5-36.0 yold=377) 6 hours after starting heparin infusion and as indicated per sliding scaleTISSUE [id number] 15:42:00Surgical Pathology Report Case: [id number] Authorizing Provider: Emely Wellington Collected: 11/22/2017 1710 MD Nicky OrderingLocation[facility] CV Recovery Room 2 Received: 2017 [id number] Pathologist: Billy Jean MD Specimen: Stomach, Antrum, polyp PART A GASTRIC ANTRUM POLYP, BIOPSY:GASTRIC MUCOSA WITH HYPERPLASTIC FEATURES AND FOCAL INTESTINAL METAPLASIA.NEGATIVEFOR DYSPLASIA OR INVASIVE CARCINOMA.WARTHIN STARRY STAIN FOR HELICOBACTER IS NEGATIVE. Signing Pathologist Direct Phone Line: [phone] signed by Billy Jean MD on at 3:42 [id number], [id number] hemorrhage Stomach antrum polyp The specimen is received in a formalin-filled container labeled with the patient 's information and labeled "stomach antrum polyp" and consists of a 0.1 cm fragment of esteban soft tissue submitted in A1. CG/ew The following special studies were performed on this case and the interpretation is incorporated in the diagnostic report above:BLOCK A1- ALYSAN STARRYPOCT-GLUCOSE [id number] 07:19:00 Test Item Value Reference Range Comments POC-GLUCOSE METER (BEAKER) 271 mg/dL 70-110 TESTED AT [facility] [address] (test yjya=3953) [facility] [address] BASIC METABOLIC [id number] 06:09:00 Test Item Value Reference Range Comments SODIUM (BEAKER) (test 138 meq/L 136-145 yvui=971) POTASSIUM (BEAKER) (test 3.9 meq/L 3.5-5.1 jqan=669) CHLORIDE (BEAKER) (test 104 meq/L 98-107 yyiy=856) CO2 (BEAKER) (test 29 meq/L 22-29 gwsz=455) BLOOD UREA NITROGEN 16 mg/dL 7-21 (BEAKER) (test kkug=727) CREATININE (BEAKER) (test 1.15 mg/dL 0.57-1.25 guxk=087) GLUCOSE RANDOM (BEAKER) 234 mg/dL 70-105 (test xito=549) CALCIUM (BEAKER) (test 8.5 mg/dL 8.4-10.2 bfwr=485) EGFR (BEAKER) (test 66 mL/min/1.73 sq m ESTIMATED GFR IS NOT nnut=5164) ACCURATE CREATININE CLEARANCE IN PREDICTING GLOMERULAR FILTRATION RATE. ESTIMATED GFR IS NOT APPLICABLE FOR DIALYSIS PATIENTS. PROTHROMBIN TIME/[id number] 05:45:00 Test Item Value Reference Range Comments PROTIME (BEAKER) (test vgoe=896) 20.0 seconds 11.7-14.7 INR (BEAKER) (test dmhx=318) 1.7 <=5.9 RECOMMENDED COUMADIN/WARFARIN INR THERAPY RANGESSTANDARD DOSE: 2.0 - 3.0 Includes: PROPHYLAXIS forvenous thrombosis, systemic embolization; TREATMENT for venous thrombosis and/or pulmonary embolus.HIGH RISK: Target INR is 2.5-3.5 for patients with mechanical heart valves.CBC W/PLT COUNT & AUTO [id number] 05:36:00 Test Item Value Reference Range Comments WHITE BLOOD CELL COUNT (BEAKER) (test viye=902) 8.1 K/ L 3.5-10.5 RED BLOOD CELL COUNT (BEAKER) (test oyax=946) 4.23 M/ L 4.63-6.08 HEMOGLOBIN (BEAKER) (test dlys=304) 10.0 GM/DL 13.7-17.5 HEMATOCRIT (BEAKER) (test minb=363) 32.6 % 40.1-51.0 MEAN CORPUSCULAR VOLUME (BEAKER) (test fbkf=896) 77.1 fL 79.0-92.2 MEAN CORPUSCULAR HEMOGLOBIN (BEAKER) (test 23.6 pg 25.7-32.2 ifwh=240) MEAN CORPUSCULAR HEMOGLOBIN CONC (BEAKER) (test 30.7 GM/DL 32.3-36.5 lsdq=287) RED CELL DISTRIBUTION WIDTH (BEAKER) (test 15.0 % 11.6-14.4 bjzo=735) PLATELET COUNT (BEAKER) (test tfsa=015) 185 K/CU MM 150-450 MEAN PLATELET VOLUME (BEAKER) (test hknt=840) 9.9 fL 9.4-12.4 NUCLEATED RED BLOOD CELLS (BEAKER) (test 0 /100 WBC 0-0 imjr=789) NEUTROPHILS RELATIVE PERCENT (BEAKER) (test 70 % rmbb=283) LYMPHOCYTES RELATIVE PERCENT (BEAKER) (test 19 % dpfy=773) MONOCYTES RELATIVE PERCENT (BEAKER) (test 7 % inpf=817) EOSINOPHILS RELATIVE PERCENT (BEAKER) (test 3 % ineu=046) BASOPHILS RELATIVE PERCENT (BEAKER) (test 1 % dkao=148) NEUTROPHILS ABSOLUTE COUNT (BEAKER) (test 5.65 K/ L 1.78-5.38 kzxt=727) LYMPHOCYTES ABSOLUTE COUNT (BEAKER) (test 1.53 K/ L 1.32-3.57 bqbg=650) MONOCYTES ABSOLUTE COUNT (BEAKER) (test 0.56 K/ L 0.30-0.82 wfaz=172) EOSINOPHILS ABSOLUTE COUNT (BEAKER) (test 0.23 K/ L 0.04-0.54 kxma=873) BASOPHILS ABSOLUTE COUNT (BEAKER) (test 0.07 K/ L 0.01-0.08 hknt=318) IMMATURE GRANULOCYTES-RELATIVE PERCENT (BEAKER) 1 % 0-1 (test sbze=0684) BASIC METABOLIC [id number] 05:20:00 Test Item Value Reference Range Comments SODIUM (BEAKER) (test 138 meq/L 136-145 qnjc=931) POTASSIUM (BEAKER) (test 4.3 meq/L 3.5-5.1 crta=677) CHLORIDE (BEAKER) (test 105 meq/L 98-107 bbca=939) CO2 (BEAKER) (test 26 meq/L 22-29 gzhd=858) BLOOD UREA NITROGEN 20 mg/dL 7-21 (BEAKER) (test sijl=012) CREATININE (BEAKER) (test 1.05 mg/dL 0.57-1.25 ksyv=130) GLUCOSE RANDOM (BEAKER) 198 mg/dL 70-105 (test rsuh=842) CALCIUM (BEAKER) (test 8.1 mg/dL 8.4-10.2 ikum=796) EGFR (BEAKER) (test 73 mL/min/1.73 sq m ESTIMATED GFR IS NOT puky=8853) ACCURATE CREATININE CLEARANCE IN PREDICTING GLOMERULAR FILTRATION RATE. ESTIMATED GFR IS NOT APPLICABLE FOR DIALYSIS PATIENTS. HEMOGLOBIN AND [id number] 05:14:00 Test Item Value Reference Range Comments HEMOGLOBIN (BEAKER) (test vmrz=178) 9.6 GM/DL 13.7-17.5 HEMATOCRIT (BEAKER) (test jnrj=292) 32.0 % 40.1-51.0 PROTHROMBIN TIME/[id number] 04:58:00 Test Item Value Reference Range Comments PROTIME (BEAKER) (test pvuu=096) 23.2 seconds 11.7-14.7 INR (BEAKER) (test kmpc=966) 2.1 <=5.9 RECOMMENDED COUMADIN/WARFARIN INR THERAPY RANGESSTANDARD DOSE: 2.0 - 3.0 Includes: PROPHYLAXIS forvenous thrombosis, systemic embolization; TREATMENT for venous thrombosis and/or pulmonary embolus.HIGH RISK: Target INR is 2.5-3.5 for patients with mechanical heart valves.POCT-GLUCOSE [id number] 00:43:00 Test Item Value Reference Range Comments POC-GLUCOSE METER (BEAKER) 262 mg/dL 70-110 TESTED AT [facility] [address] [facility] (test ygrg=7621) [place] [address] HEMOGLOBIN AND [id number] 23:41:00 Test Item Value Reference Range Comments HEMOGLOBIN (BEAKER) (test pirm=256) 10.2 GM/DL 13.7-17.5 HEMATOCRIT (BEAKER) (test qhfm=098) 33.5 % 40.1-51.0 POCT-GLUCOSE [id number] 18:36:00 Test Item Value Reference Range Comments POC-GLUCOSE METER (BEAKER) 309 mg/dL 70-110 TESTED AT [address] (test eavh=1584) [place] [id number] HEMOGLOBIN AND [id number] 18:35:00 Test Item Value Reference Range Comments HEMOGLOBIN (BEAKER) (test jzap=830) 9.6 GM/DL 13.7-17.5 HEMATOCRIT (BEAKER) (test ohcb=237) 31.3 % 40.1-51.0 POCT-GLUCOSE [id number] 13:11:00 Test Item Value Reference Range Comments POC-GLUCOSE METER (BEAKER) 217 mg/dL 70-110 TESTED AT [address] (test mivn=4782) [place] [address] LACTATE DEHYDROGENASE (LDH)2017-11-21 12:53:00 Test Item Value Reference Range Comments LACTATE DEHYDROGENASE (BEAKER) (test jzhk=383) 318 U/L 125-220 HEMOGLOBIN AND [id number] 12:12:00 Test Item Value Reference Range Comments HEMOGLOBIN (BEAKER) (test fvma=364) 9.9 GM/DL 13.7-17.5 HEMATOCRIT (BEAKER) (test nrng=724) 32.7 % 40.1-51.0 B-TYPE NATRIURETIC FACTOR (BNP)2017-11-21 03:36:00 Test Item Value Reference Range Comments B-TYPE NATRIURETIC PEPTIDE (BEAKER) (test 339 pg/mL 0-100 onnn=657) CREATINE KINASE (CK), TOTAL AND [id number] 02:58:00 Test Item Value Reference Range Comments CREATINE KINASE TOTAL (BEAKER) (test ysbf=542) 59 U/L 29-200 CREATINE KINASE-MB (BEAKER) (test nkmh=231) 1.0 ng/mL 0.0-6.6 CREATINE KINASE-MB INDEX (BEAKER) (test hmyx=867) 1.7 % CK-MB Reference Range:<6.7 Normal6.7-10.0 Borderline>10.0 AbnormalTROPONIN [id number] 02:58:00 Test Item Value Reference Range Comments TROPONIN I (BEAKER) (test wmkf=127) < ng/mL 0.00-0.03 Troponin I (TnI) levels [...] and persistent tachyarrhythmia.RAD, CHEST, 1 VIEW, NON [id number] 02:11:00LABS: [facility]YHCYNQT[address] [place], [place] [phone] () [phone] (FAX)Reason for exam:-> EPISTAXISReason for exam:->RECTAL BLEEDINGReason [...] MDReport Verified Date/Time: 11/21/2017 02:11:19 Reading Location: [address] Reading Room Electronically signed by: ERVIN RODRIGUEZ M.D. on 02:11 [id number] 01:04:00 Test Item Value Reference Range Comments LIPASE (BEAKER) (test cypi=014) 20 U/L 8-78 [id number] 01:04:00 Test Item Value Reference Range Comments AMYLASE (BEAKER) (test czpo=179) 28 U/L 25-125 BASIC METABOLIC [id number] 01:04:00 Test Item Value Reference Range Comments SODIUM (BEAKER) (test 139 meq/L 136-145 uvym=518) POTASSIUM (BEAKER) (test 4.6 meq/L 3.5-5.1 nmao=187) CHLORIDE (BEAKER) (test 105 meq/L 98-107 xjti=558) CO2 (BEAKER) (test 26 meq/L 22-29 isno=001) BLOOD UREA NITROGEN 31 mg/dL 7-21 (BEAKER) (test ftjz=209) CREATININE (BEAKER) (test 1.26 mg/dL 0.57-1.25 qplx=358) GLUCOSE RANDOM (BEAKER) 225 mg/dL 70-105 (test vtcp=400) CALCIUM (BEAKER) (test 8.6 mg/dL 8.4-10.2 dedi=089) EGFR (BEAKER) (test 59 mL/min/1.73 sq m ESTIMATED GFR IS NOT sapw=3941) ACCURATE CREATININE CLEARANCE IN PREDICTING GLOMERULAR FILTRATION RATE. ESTIMATED GFR IS NOT APPLICABLE FOR DIALYSIS PATIENTS. HEPATIC FUNCTION [id number] 01:04:00 Test Item Value Reference Range Comments TOTAL PROTEIN (BEAKER) (test fcyr=483) 7.5 gm/dL 6.0-8.3 ALBUMIN (BEAKER) (test dspz=7350) 3.5 g/dL 3.5-5.0 BILIRUBIN TOTAL (BEAKER) (test aeov=187) 0.6 mg/dL 0.2-1.2 BILIRUBIN DIRECT (BEAKER) (test ubnu=419) 0.2 mg/dL 0.1-0.5 ALKALINE PHOSPHATASE (BEAKER) (test pqqr=152) 106 U/L 40-150 AST (SGOT) (BEAKER) (test xsxb=554) 22 U/L 5-34 ALT (SGPT) (BEAKER) (test wxip=236) 25 U/L 6-55 URINALYSIS W/ [id number] 00:56:00 Test Item Value Reference Range Comments COLOR (BEAKER) (test yvrs=536) Yellow CLARITY (BEAKER) (test mmcv=211) Clear SPECIFIC GRAVITY UA (BEAKER) (test plst=399) 1.015 1.001-1.035 PH UA (BEAKER) (test ghro=450) 5.5 5.0-8.0 PROTEIN UA (BEAKER) (test sqap=040) 20 mg/dL Negative GLUCOSE UA (BEAKER) (test nmap=540) Negative Negative KETONES UA (BEAKER) (test zkdx=375) Negative Negative BILIRUBIN UA (BEAKER) (test vnzy=871) Negative Negative BLOOD UA (BEAKER) (test zmke=110) Small Negative NITRITE UA (BEAKER) (test gzow=752) Negative Negative LEUKOCYTE ESTERASE UA (BEAKER) (test vmdi=288) Negative Negative UROBILINOGEN UA (BEAKER) (test afgg=396) 0.2 mg/dL 0.2-1.0 RBC UA (BEAKER) (test iczz=659) 4 /HPF WBC UA (BEAKER) (test zska=479) 1 /HPF SQUAMOUS EPITHELIAL (BEAKER) (test bwwj=595) < /HPF HYALINE CASTS (BEAKER) (test lllv=193) 1 /LPF SOURCE(BEAKER) (test jjhi=6951) Urine, Voided CBC W/PLT COUNT & AUTO [id number] 00:33:00 Test Item Value Reference Range Comments WHITE BLOOD CELL COUNT (BEAKER) (test rmka=881) 7.7 K/ L 3.5-10.5 RED BLOOD CELL COUNT (BEAKER) (test rqhx=296) 3.87 M/ L 4.63-6.08 HEMOGLOBIN (BEAKER) (test godv=087) 8.7 GM/DL 13.7-17.5 HEMATOCRIT (BEAKER) (test ofbl=607) 29.7 % 40.1-51.0 MEAN CORPUSCULAR VOLUME (BEAKER) (test ytvw=435) 76.7 fL 79.0-92.2 MEAN CORPUSCULAR HEMOGLOBIN (BEAKER) (test 22.5 pg 25.7-32.2 lgxf=659) MEAN CORPUSCULAR HEMOGLOBIN CONC (BEAKER) (test 29.3 GM/DL 32.3-36.5 ssvx=699) RED CELL DISTRIBUTION WIDTH (BEAKER) (test 14.8 % 11.6-14.4 fobm=676) PLATELET COUNT (BEAKER) (test scvc=903) 188 K/CU MM 150-450 MEAN PLATELET VOLUME (BEAKER) (test ntrt=568) 9.8 fL 9.4-12.4 NUCLEATED RED BLOOD CELLS (BEAKER) (test 0 /100 WBC 0-0 bpof=417) NEUTROPHILS RELATIVE PERCENT (BEAKER) (test 67 % zril=998) LYMPHOCYTES RELATIVE PERCENT (BEAKER) (test 23 % jwzz=893) MONOCYTES RELATIVE PERCENT (BEAKER) (test 7 % clcg=449) EOSINOPHILS RELATIVE PERCENT (BEAKER) (test 2 % maes=305) BASOPHILS RELATIVE PERCENT (BEAKER) (test 1 % yils=607) NEUTROPHILS ABSOLUTE COUNT (BEAKER) (test 5.13 K/ L 1.78-5.38 vhkv=608) LYMPHOCYTES ABSOLUTE COUNT (BEAKER) (test 1.73 K/ L 1.32-3.57 nqyn=121) MONOCYTES ABSOLUTE COUNT (BEAKER) (test 0.53 K/ L 0.30-0.82 oyuo=167) EOSINOPHILS ABSOLUTE COUNT (BEAKER) (test 0.18 K/ L 0.04-0.54 tccb=442) BASOPHILS ABSOLUTE COUNT (BEAKER) (test 0.07 K/ L 0.01-0.08 cyag=040) IMMATURE GRANULOCYTES-RELATIVE PERCENT (BEAKER) 1 % 0-1 (test teex=0243) [id number] 00:17:00 Test Item Value Reference Range Comments PROTIME (BEAKER) (test zdzz=545) 25.4 seconds 11.7-14.7 INR (BEAKER) (test rscr=058) 2.3 <=5.9 PARTIAL THROMBOPLASTIN TIME (BEAKER) (test 36.2 seconds 22.5-36.0 thxu=721) RECOMMENDED COUMADIN/WARFARIN INR THERAPY RANGESSTANDARD DOSE: 2.0 - 3.0 Includes: PROPHYLAXIS forvenous thrombosis, systemic embolization; TREATMENT for venous thrombosis and/or pulmonary embolus.HIGH RISK: Target INR is 2.5-3.5 for patients with mechanical heart valves.PLASMA FREE [id number] 07:27 :00 Test Item Value Reference Range Comments HEMOGLOBIN PLASMA (BEAKER) (test ibkj=6967) 30.0 mg/dl 0.0-30.0 HEMOGLOBIN [id number] 20:04:00 Test Item Value Reference Range Comments HEMOGLOBIN A1C (BEAKER) (test fzqk=695) 6.7 % 4.3-6.1 [id number] 14:33:00 Test Item Value Reference Range Comments PREALBUMIN (BEAKER) (test ssof=948) 16 mg/dL 14-45 CT, CHEST, WITHOUT [id number] 14:33:00LABS: [facility] YYETCURJXL[address] [place], [place] [phone] () (FAX)FINAL REPORT HISTORY: Lung nodule, <1cm [...] material. Please see above. Signed: Hank Bass Verified Date/Time: 14:33:30 Reading Location: [facility] Diagnostic Imaging Reading Room - [place] [address] 112 [id number] 14:27:00 Test Item Value Reference Range Comments MAGNESIUM (BEAKER) (test jcut=146) 1.8 mg/dL 1.6-2.6 BASIC METABOLIC [id number] 14:27:00 Test Item Value Reference Range Comments SODIUM (BEAKER) (test 137 meq/L 136-145 rnjn=944) POTASSIUM (BEAKER) (test 4.7 meq/L 3.5-5.1 kqlw=963) CHLORIDE (BEAKER) (test 103 meq/L 98-107 mrqd=611) CO2 (BEAKER) (test 26 meq/L 22-29 hzra=720) BLOOD UREA NITROGEN 25 mg/dL 7-21 (BEAKER) (test foxo=084) CREATININE (BEAKER) (test 1.26 mg/dL 0.57-1.25 szqr=999) GLUCOSE RANDOM (BEAKER) 157 mg/dL 70-105 (test tjju=159) CALCIUM (BEAKER) (test 8.9 mg/dL 8.4-10.2 whit=035) EGFR (BEAKER) (test 59 mL/min/1.73 sq m ESTIMATED GFR IS NOT yyht=5053) ACCURATE CREATININE CLEARANCE IN PREDICTING GLOMERULAR FILTRATION RATE. ESTIMATED GFR IS NOT APPLICABLE FOR DIALYSIS PATIENTS. HEPATIC FUNCTION [id number] 14:27:00 Test Item Value Reference Range Comments TOTAL PROTEIN (BEAKER) (test kpzn=980) 7.9 gm/dL 6.0-8.3 ALBUMIN (BEAKER) (test kvvv=3611) 3.8 g/dL 3.5-5.0 BILIRUBIN TOTAL (BEAKER) (test wpem=264) 0.6 mg/dL 0.2-1.2 BILIRUBIN DIRECT (BEAKER) (test dhxf=701) 0.3 mg/dL 0.1-0.5 ALKALINE PHOSPHATASE (BEAKER) (test mnlv=565) 97 U/L 40-150 AST (SGOT) (BEAKER) (test tunl=286) 24 U/L 5-34 ALT (SGPT) (BEAKER) (test hdje=674) 31 U/L 6-55 LACTATE DEHYDROGENASE (LDH)2017-10-05 14:27:00 Test Item Value Reference Range Comments LACTATE DEHYDROGENASE (BEAKER) (test wipm=536) 282 U/L 125-220 PROTHROMBIN [id number] 13:48:00 Test Item Value Reference Range Comments PROTIME (BEAKER) (test kehp=444) 22.5 seconds 11.7-14.7 INR (BEAKER) (test xfwn=490) 2.0 <=5.9 RECOMMENDED COUMADIN/WARFARIN INR THERAPY RANGESSTANDARD DOSE: 2.0 - 3.0 Includes: PROPHYLAXIS forvenous thrombosis, systemic embolization; TREATMENT for venous thrombosis and/or pulmonary embolus.HIGH RISK: Target INR is 2.5-3.5 for patients with mechanical heart valves.CBC W/PLT COUNT & AUTO [id number] 13:36:00 Test Item Value Reference Range Comments WHITE BLOOD CELL COUNT (BEAKER) (test uwhy=420) 6.8 K/ L 3.5-10.5 RED BLOOD CELL COUNT (BEAKER) (test fgkd=522) 4.69 M/ L 4.63-6.08 HEMOGLOBIN (BEAKER) (test apbt=479) 11.1 GM/DL 13.7-17.5 HEMATOCRIT (BEAKER) (test bkbh=658) 36.3 % 40.1-51.0 MEAN CORPUSCULAR VOLUME (BEAKER) (test xkum=341) 77.4 fL 79.0-92.2 MEAN CORPUSCULAR HEMOGLOBIN (BEAKER) (test 23.7 pg 25.7-32.2 adss=500) MEAN CORPUSCULAR HEMOGLOBIN CONC (BEAKER) (test 30.6 GM/DL 32.3-36.5 kjhh=682) RED CELL DISTRIBUTION WIDTH (BEAKER) (test 15.4 % 11.6-14.4 dzje=537) PLATELET COUNT (BEAKER) (test fdsw=323) 183 K/CU MM 150-450 MEAN PLATELET VOLUME (BEAKER) (test lqtv=208) 10.0 fL 9.4-12.4 NUCLEATED RED BLOOD CELLS (BEAKER) (test 0 /100 WBC 0-0 vcvz=827) NEUTROPHILS RELATIVE PERCENT (BEAKER) (test 65 % ogon=964) LYMPHOCYTES RELATIVE PERCENT (BEAKER) (test 24 % igla=781) MONOCYTES RELATIVE PERCENT (BEAKER) (test 8 % zzvq=889) EOSINOPHILS RELATIVE PERCENT (BEAKER) (test 2 % smtk=673) BASOPHILS RELATIVE PERCENT (BEAKER) (test 1 % ehwo=097) NEUTROPHILS ABSOLUTE COUNT (BEAKER) (test 4.37 K/ L 1.78-5.38 ipbn=756) LYMPHOCYTES ABSOLUTE COUNT (BEAKER) (test 1.62 K/ L 1.32-3.57 arqi=070) MONOCYTES ABSOLUTE COUNT (BEAKER) (test 0.55 K/ L 0.30-0.82 zhkm=605) EOSINOPHILS ABSOLUTE COUNT (BEAKER) (test 0.15 K/ L 0.04-0.54 sylb=292) BASOPHILS ABSOLUTE COUNT (BEAKER) (test 0.07 K/ L 0.01-0.08 nacr=281) IMMATURE GRANULOCYTES-RELATIVE PERCENT (BEAKER) 0 % 0-1 (test wujs=2262) HEPATITIS C PCR, [id number] 09:32:00 Test Item Value Reference Range Comments HCV RESULT COMPONENT (BEAKER) HCV RNA not detected HCV RNA not detected (test nbbt=6850) This test uses a Real-Time Polymerase Chain Reaction (RT-PCR) methodology and was performed using [employer] Ampliprep/BH[employer]AR TaqMan HCV test kit version 2.0 ( [employer]).Reportable range for this assay is 15 - 100,000, 000 IU per mL (1.18 - 8.00 Log IU/mL).AB SPECIFICITY CLASS [id number] 09:45:00 Test Item Value Reference Range Comments DATE OF SERUM (BEAKER) (test ymte=7555) [id number] SERUM # (BEAKER) (test grej=5676) [id number] AB SPECIFICITY CLASS I (BEAKER) (test See Scanned Report rgpm=1988) FLOW PRA CLASS I AND [id number] 14:14:00 Test Item Value Reference Range Comments DATE OF SERUM (BEAKER) (test iick=5394) [id number] SERUM # (BEAKER) (test ktor=6204) 752018 FLOW PRA CLASS I AND II (test ygjt=3160) See Scanned Report HERPES VIRUS ANTIBODY, [id number] 07:57:00 Test Item Value Reference Range Comments HERPES VIRUS IGM (BEAKER) (test mcjo=7454) Negative TOXOPLASMA GONDII ANTIBODY, [id number] 07:57:00 Test Item Value Reference Range Comments TOXOPLASMA IGM ANTIBODY (BEAKER) (test koqk=300) Negative ANTI-NUCLEAR ANTIBODY (NOLA)2017-09-01 10:42:00 Test Item Value Reference Range Comments ANTI-NUCLEAR ANTIBODY (NOLA) (BEAKER) (test Negative Negative xgps=018) CYTOMEGALOVIRUS ANTIBODY, [id number] 15:35:00 Test Item Value Reference Range Comments CYTOMEGALOVIRUS IGG ANTIBODY (BEAKER) (test Positive ekpg=558) CYTOMEGALOVIRUS ANTIBODY, [id number] 15:35:00 Test Item Value Reference Range Comments CYTOMEGALOVIRUS IGM ANTIBODY (BEAKER) (test Negative pphp=880) EBV-VCA ANTIBODY, [id number] 15:35:00 Test Item Value Reference Range Comments AMAURI-MASON VCA IGG (BEAKER) (test evqq=702) Positive EBV-VCA ANTIBODY, [id number] 15:35:00 Test Item Value Reference Range Comments AMAURI-MASON VCA IGM (BEAKER) (test mxbz=371) Negative HERPES VIRUS ANTIBODY, [id number] 15:35:00 Test Item Value Reference Range Comments HERPES VIRUS IGG (BEAKER) (test Positive HSV 1 IGG=POSHSV 2 IGG=NEG dmhz=8175) TOXOPLASMA GONDII ANTIBODY, [id number] 15:35:00 Test Item Value Reference Range Comments TOXOPLASMA GONDII IGG (BEAKER) (test rhci=370) Negative IMMUNOFIXATION ELECTROPHORESIS (ANGELIKA)2017-08-31 15:30:00 Test Item Value Reference Range Comments IMMUNOGLOBULIN G (IGG) (BEAKER) 1527 mg/dL 540-1822 (test xpeb=589) IMMUNOGLOBULIN A (IGA) (BEAKER) 402 mg/dL 63-484 (test svlh=153) IMMUNOGLOBULIN M (IGM) (BEAKER) 98 mg/dL 22-293 (test coxu=558) SERUM ANGELIKA ID (BEAKER) (test No monoclonal proteins xhgy=9234) detected. Polyclonal distribution of immunoglobulins. [id number] (BEAKER) Gloria Schmidt MD (test ybsn=9171) (electronic signature) PROTEIN ELECTROPHORESIS, [id number] 15:29:00 Test Item Value Reference Range Comments ALBUMIN FRACTION (BEAKER) 3.4 g/dL 3.5-5.5 (test pjru=599) ALPHA 1 FRACTION (BEAKER) 0.3 g/dL 0.2-0.4 (test lqdt=781) ALPHA 2 FRACTION (BEAKER) 0.7 g/dL 0.5-0.9 (test vlpc=470) BETA FRACTION (BEAKER) (test 1.4 g/dL 0.6-1.1 phng=840) GAMMA GLOBULIN FRACTION 1.5 g/dL 0.7-1.7 (BEAKER) (test dbhy=301) INTERPRETATION-119 (BEAKER) All fractions present in (test enud=2957) expected distribution with minor nonspecific changes. No monoclonal bands detected. [id number] Gloria Schmidt MD ([employer]) (test hlci=6934) (electronic signature) PROTEIN TOTAL SERUM, SPEP 7.3 gm/dL 6.0-8.3 (BEAKER) (test yqeh=0149) VARICELLA ZOSTER ANTIBODY, [id number] 15:16:00 Test Item Value Reference Range Comments VARICELLA ZOSTER IGG (AL) (BEAKER) (test nxnz=4213) 6.1 Al VARICELLA ZOSTER RESULT INTERPRETATIONS: <=0.8 Al Nonreactive: Presumed non-immune to VZV 0.9-1.0 Al Equivocal >=1.1 Al Reactive: Presumed immune to VZVRAD, BONE DENSITY [id number] 11:20: 00LABS: [facility] [id number] [place] [address] [phone] () [phone] (FAX)Reason for Exam:->Heart transplant evaluationFINAL REPORT Bone mineral density study 2016. CLINICAL INDICATION: Heart transplant evaluation. COMPARISON: 02/03/2016 FINDINGS: Evaluation of the left and right femoral necks and lumbar spine was performed utilizing a [employer] Power Advance bone densitometer. Data reflect young adult [...] demonstrates a 4.9% decrease. Signed: Vicky Velazquez MDReport Verified Date/Time: 08/31/2017 11:20:44 Reading Location: [address] Mammo Reading Room CT , BRAIN, WITHOUT [id number] 09:58:00LABS: [facility] [address] [place], [place] [phone] (PH) (FAX)FINAL REPORT CT head without contrast INDICATION: [...] Stable left mastoidectomy changes. Signed: Devonte Marsh MDReport Verified Date/Time: 08/31/2017 09:58:49 Reading Location: [facility] B1 C013V Neuro Reading Room HEMOGLOBIN [id number] 16:20:00 Test Item Value Reference Range Comments HEMOGLOBIN A1C (BEAKER) (test lpwd=066) 9.5 % 4.3-6.1 RAD, CHEST, 2 [id number] 15:22:00LABS: [facility] [id number] [place], [place] [phone] () [phone] (FAX) Reason for Exam:->Heart transplant evaluationFINAL REPORT Chest two views compared to January 17 Discussion: Left chest pacemaker and left ventricular assist device are noted. Lungs clear. Heart size normal. No effusion or pneumothorax. Signed: Maximus Miranda Verified Date/Time: 08/30/2017 15:22:59 Reading Location: [address] Consult Reading Room U/S, RENAL, [id number] 15:04:00LABS: [facility] [id number] [place] [address] [phone] () [phone] (FAX)Reason for Exam: ->Heart transplant evaluationFINAL REPORT [...] without evidence of hydronephrosis. Signed: Mona Solitario Verified Date/Time: 08/30/2017 15:04:53 Reading Location: [facility] [id number] Ultrasound Reading Room Electronically signed by: MONA SOLITARIO M.D. on 10/2017 03:04 PMHEPATITIS C [id number] 14:00:00 Test Item Value Reference Range Comments HEPATITIS C ANTIBODY (BEAKER) (test ymqv=995) Reactive Nonreactive HEPATITIS A ANTIBODY, [id number] 12:06:00 Test Item Value Reference Range Comments HEPATITIS A IGG ANTIBODY (BEAKER) (test xdah=8600) Reactive Nonreactive URINALYSIS W/ [id number] 11:35:00 Test Item Value Reference Range Comments COLOR (BEAKER) (test bshs=751) Yellow CLARITY (BEAKER) (test fsrm=692) Clear SPECIFIC GRAVITY UA (BEAKER) (test rnup=965) 1.015 1.001-1.035 PH UA (BEAKER) (test pzmq=959) 5.5 5.0-8.0 PROTEIN UA (BEAKER) (test zuid=403) 20 mg/dL Negative GLUCOSE UA (BEAKER) (test fbwl=095) Negative Negative KETONES UA (BEAKER) (test hpij=983) Negative Negative BILIRUBIN UA (BEAKER) (test gles=798) Negative Negative BLOOD UA (BEAKER) (test qwom=226) Trace Negative NITRITE UA (BEAKER) (test oaft=293) Negative Negative LEUKOCYTE ESTERASE UA (BEAKER) (test bept=918) Negative Negative UROBILINOGEN UA (BEAKER) (test vovt=838) 0.2 mg/dL 0.2-1.0 RBC UA (BEAKER) (test gruc=938) 3 /HPF WBC UA (BEAKER) (test zexr=319) 0 /HPF SOURCE(BEAKER) (test uztc=4424) HEPATITIS B CORE ANTIBODY, [id number] 11:24:00 Test Item Value Reference Range Comments HEPATITIS B CORE IGM ANTIBODY (BEAKER) (test Nonreactive Nonreactive lwky=467) HEPATITIS A ANTIBODY, [id number] 11:24:00 Test Item Value Reference Range Comments HEPATITIS A IGM ANTIBODY (BEAKER) (test Nonreactive Nonreactive xsmo=821) HEPATITIS B CORE ANTIBODY, [id number] 11:24:00 Test Item Value Reference Range Comments HEPATITIS B CORE TOTAL ANTIBODY (BEAKER) (test Nonreactive Nonreactive qima=671) [id number] 11:24:00 Test Item Value Reference Range Comments RPR SCREEN (BEAKER) (test clow=788) Nonreactive Nonreactive [id number] 11:24:00 Test Item Value Reference Range Comments PROSTATE SPECIFIC ANTIGEN (BEAKER) (test hthp=878) 0.5 ng/mL 0.0-4.0 HEPATITIS B SURFACE [id number] 11:02:00 Test Item Value Reference Range Comments HEPATITIS B SURFACE ANTIGEN (2) (BEAKER) (test Nonreactive Nonreactive ulqk=2202) HIV-1 ANTIGEN WITH HIV-1/2 [id number] 11:02:00 Test Item Value Reference Range Comments HIV-1 ANTIGEN WITH HIV 1\\T\\2 ANTIBODY (2) Nonreactive Nonreactive (BEAKER) (test xjsz=0771) T4, [id number] 10:40:00 Test Item Value Reference Range Comments FREE T4 (BEAKER) (test ziyf=145) 1.08 ng/dL 0.70-1.48 [id number] 10:40:00 Test Item Value Reference Range Comments THYROID STIMULATING HORMONE (BEAKER) (test 1.68 uIU/mL 0.35-4.94 sxzw=927) VITAMIN D, [id number] 10:40:00 Test Item Value Reference Range Comments VITAMIN D 25-OH (BEAKER) (test cjjm=5658) 10.7 ng/mL 6.6-49.9 Effective 08/29/2017: Reference Range ChangeNew: 6.6-49.9 ng/mL Previous: 13.0 -47.8 ng/mLRecommended Vitamin D Target Range: 30.0-40.0 ng/[id number] 10:39:00 Test Item Value Reference Range Comments PREALBUMIN (BEAKER) (test vfjy=470) 16 mg/dL 14-45 IRON, [id number] 10:39:00 Test Item Value Reference Range Comments IRON (BEAKER) (test sbla=538) 50 ug/dL 40-160 [id number] 10:39:00 Test Item Value Reference Range Comments FERRITIN (BEAKER) (test vfmb=972) 16 ng/mL 5-275 [id number] 10:26:00 Test Item Value Reference Range Comments TRANSFERRIN (BEAKER) (test cbru=511) 358 mg/dL 174-382 B-TYPE NATRIURETIC FACTOR (BNP)2017-08-30 10:25:00 Test Item Value Reference Range Comments B-TYPE NATRIURETIC PEPTIDE (BEAKER) (test 287 pg/mL 0-100 gocr=315) URIC [id number] 10:21:00 Test Item Value Reference Range Comments URIC ACID (BEAKER) (test nedl=823) 8.1 mg/dL 2.6-7.2 [id number] 10:21:00 Test Item Value Reference Range Comments MAGNESIUM (BEAKER) (test exot=472) 1.7 mg/dL 1.6-2.6 [id number] 10:21:00 Test Item Value Reference Range Comments PHOSPHORUS (BEAKER) (test brxc=603) 2.9 mg/dL 2.3-4.7 BASIC METABOLIC [id number] 10:21:00 Test Item Value Reference Range Comments SODIUM (BEAKER) (test 139 meq/L 136-145 wkbe=119) POTASSIUM (BEAKER) (test 4.3 meq/L 3.5-5.1 mlwr=063) CHLORIDE (BEAKER) (test 105 meq/L 98-107 ssjs=731) CO2 (BEAKER) (test 28 meq/L 22-29 ugcd=732) BLOOD UREA NITROGEN 27 mg/dL 7-21 (BEAKER) (test ygib=979) CREATININE (BEAKER) (test 1.11 mg/dL 0.57-1.25 xbme=845) GLUCOSE RANDOM (BEAKER) 130 mg/dL 70-105 (test zxmw=953) CALCIUM (BEAKER) (test 9.0 mg/dL 8.4-10.2 wsjz=119) EGFR (BEAKER) (test 69 mL/min/1.73 sq m ESTIMATED GFR IS NOT vwyx=3886) ACCURATE CREATININE CLEARANCE IN PREDICTING GLOMERULAR FILTRATION RATE. ESTIMATED GFR IS NOT APPLICABLE FOR DIALYSIS PATIENTS. LIPID [id number] 10:21:00 Test Item Value Reference Range Comments TRIGLYCERIDES (BEAKER) (test zsvb=140) 128 mg/dL CHOLESTEROL (BEAKER) (test cnba=578) 147 mg/dL HDL CHOLESTEROL (BEAKER) (test hvzm=151) 35 mg/dL LDL CHOLESTEROL CALCULATED (BEAKER) (test 86 mg/dL mlcu=364) Triglyceride Reference Range: Low Risk <150 Borderline 150- 199 High Risk 200-499 Very High Risk >=500Cholesterol Reference Range: Low Risk <200 Borderline 200-239 High Risk > 240HDL Cholesterol Reference Range: Low Risk >=60 High Risk <40LDL Cholesterol Reference Range: Optimal <100 Near Optimal 100-129 Borderline 130-159 High 160-189 Very High >=190HEPATIC FUNCTION [id number] 10:21:00 Test Item Value Reference Range Comments TOTAL PROTEIN (BEAKER) (test deuv=003) 7.8 gm/dL 6.0-8.3 ALBUMIN (BEAKER) (test xzlb=9838) 3.7 g/dL 3.5-5.0 BILIRUBIN TOTAL (BEAKER) (test nana=676) 0.6 mg/dL 0.2-1.2 BILIRUBIN DIRECT (BEAKER) (test yukm=506) 0.3 mg/dL 0.1-0.5 ALKALINE PHOSPHATASE (BEAKER) (test crfc=640) 111 U/L 40-150 AST (SGOT) (BEAKER) (test oxfe=947) 24 U/L 5-34 ALT (SGPT) (BEAKER) (test nbvw=040) 28 U/L 6-55 [id number] 10:21:00 Test Item Value Reference Range Comments AMYLASE (BEAKER) (test qvak=543) 30 U/L 25-125 GAMMA GLUTAMYL TRANSFERASE (GGT)2017-08-30 10:21:00 Test Item Value Reference Range Comments GAMMA GLUTAMYL TRANSFERASE (BEAKER) (test idgx=100) 347 U/L 9-64 LACTATE DEHYDROGENASE (LDH)2017-08-30 10:21:00 Test Item Value Reference Range Comments LACTATE DEHYDROGENASE (BEAKER) (test mswz=832) 308 U/L 125-220 [id number] 10:21:00 Test Item Value Reference Range Comments LIPASE (BEAKER) (test qznd=354) 14 U/L 8-78 PLASMA FREE [id number] 10:14:00 Test Item Value Reference Range Comments HEMOGLOBIN PLASMA (BEAKER) (test zcbr=8706) < mg/dl 0.0-30.0 [id number] 10:12:00 Test Item Value Reference Range Comments PROTIME (BEAKER) (test fexp=179) 26.0 seconds 11.7-14.7 INR (BEAKER) (test vvjf=886) 2.4 <=5.9 PARTIAL THROMBOPLASTIN TIME (BEAKER) (test 38.9 seconds 22.5-36.0 aqrd=764) RECOMMENDED COUMADIN/WARFARIN INR THERAPY RANGESSTANDARD DOSE: 2.0 - 3.0 Includes: PROPHYLAXIS forvenous thrombosis, systemic embolization; TREATMENT for venous thrombosis and/or pulmonary embolus.HIGH RISK: Target INR is 2.5-3.5 for patients with mechanical heart valves.PROTHROMBIN [id number] 10:11: 00 Test Item Value Reference Range Comments PROTIME (BEAKER) (test yhcx=934) 26.0 seconds 11.7-14.7 INR (BEAKER) (test ylzo=795) 2.4 <=5.9 RECOMMENDED COUMADIN/WARFARIN INR THERAPY RANGESSTANDARD DOSE: 2.0 - 3.0 Includes: PROPHYLAXIS forvenous thrombosis, systemic embolization; TREATMENT for venous thrombosis and/or pulmonary embolus.HIGH RISK: Target INR is 2.5-3.5 for patients with mechanical heart valves.RETICULOCYTE [id number] 10:01:00 Test Item Value Reference Range Comments RETICULOCYTE COUNT PCT (BEAKER) (test mggz=872) 2.4 % 0.5-1.8 CBC W/PLT COUNT & AUTO [id number] 10:01:00 Test Item Value Reference Range Comments WHITE BLOOD CELL COUNT (BEAKER) (test cfwp=904) 7.4 K/ L 3.5-10.5 RED BLOOD CELL COUNT (BEAKER) (test ysba=745) 4.79 M/ L 4.63-6.08 HEMOGLOBIN (BEAKER) (test kyye=678) 11.5 GM/DL 13.7-17.5 HEMATOCRIT (BEAKER) (test fljy=589) 36.9 % 40.1-51.0 MEAN CORPUSCULAR VOLUME (BEAKER) (test cine=013) 77.0 fL 79.0-92.2 MEAN CORPUSCULAR HEMOGLOBIN (BEAKER) (test 24.0 pg 25.7-32.2 zktc=695) MEAN CORPUSCULAR HEMOGLOBIN CONC (BEAKER) (test 31.2 GM/DL 32.3-36.5 zcnd=190) RED CELL DISTRIBUTION WIDTH (BEAKER) (test 16.7 % 11.6-14.4 jlcu=007) PLATELET COUNT (BEAKER) (test wfau=309) 175 K/CU MM 150-450 MEAN PLATELET VOLUME (BEAKER) (test dyxh=143) 10.4 fL 9.4-12.4 NUCLEATED RED BLOOD CELLS (BEAKER) (test 0 /100 WBC 0-0 fkuf=698) NEUTROPHILS RELATIVE PERCENT (BEAKER) (test 68 % gejr=844) LYMPHOCYTES RELATIVE PERCENT (BEAKER) (test 21 % ubpb=087) MONOCYTES RELATIVE PERCENT (BEAKER) (test 7 % zqhw=487) EOSINOPHILS RELATIVE PERCENT (BEAKER) (test 3 % oeex=054) BASOPHILS RELATIVE PERCENT (BEAKER) (test 1 % iaot=573) NEUTROPHILS ABSOLUTE COUNT (BEAKER) (test 4.97 K/ L 1.78-5.38 omkh=807) LYMPHOCYTES ABSOLUTE COUNT (BEAKER) (test 1.56 K/ L 1.32-3.57 egdw=853) MONOCYTES ABSOLUTE COUNT (BEAKER) (test 0.50 K/ L 0.30-0.82 nalg=136) EOSINOPHILS ABSOLUTE COUNT (BEAKER) (test 0.20 K/ L 0.04-0.54 iyzt=667) BASOPHILS ABSOLUTE COUNT (BEAKER) (test 0.08 K/ L 0.01-0.08 sbxy=558) IMMATURE GRANULOCYTES-RELATIVE PERCENT (BEAKER) 1 % 0-1 (test beqr=5337) PLASMA FREE [id number] 11:32:00 Test Item Value Reference Range Comments HEMOGLOBIN PLASMA (BEAKER) (test rdku=7744) 30.0 mg/dl 0.0-30.0 [id number] 11:15:00 Test Item Value Reference Range Comments MAGNESIUM (BEAKER) (test ytnl=040) 1.9 mg/dL 1.6-2.6 BASIC METABOLIC [id number] 11:15:00 Test Item Value Reference Range Comments SODIUM (BEAKER) (test 136 meq/L 136-145 nqwv=285) POTASSIUM (BEAKER) (test 4.6 meq/L 3.5-5.1 bibd=698) CHLORIDE (BEAKER) (test 102 meq/L 98-107 jjeg=320) CO2 (BEAKER) (test 28 meq/L 22-29 cmui=665) BLOOD UREA NITROGEN 24 mg/dL 7-21 (BEAKER) (test jcwa=031) CREATININE (BEAKER) (test 1.22 mg/dL 0.57-1.25 mnmr=826) GLUCOSE RANDOM (BEAKER) 143 mg/dL 70-105 (test aqta=364) CALCIUM (BEAKER) (test 9.3 mg/dL 8.4-10.2 lnpr=673) EGFR (BEAKER) (test 62 mL/min/1.73 sq m ESTIMATED GFR IS NOT gaue=4688) ACCURATE CREATININE CLEARANCE IN PREDICTING GLOMERULAR FILTRATION RATE. ESTIMATED GFR IS NOT APPLICABLE FOR DIALYSIS PATIENTS. HEPATIC FUNCTION [id number] 11:15:00 Test Item Value Reference Range Comments TOTAL PROTEIN (BEAKER) (test ghgn=861) 7.9 gm/dL 6.0-8.3 ALBUMIN (BEAKER) (test jksk=5994) 3.7 g/dL 3.5-5.0 BILIRUBIN TOTAL (BEAKER) (test qzsd=595) 0.5 mg/dL 0.2-1.2 BILIRUBIN DIRECT (BEAKER) (test wbjq=104) 0.2 mg/dL 0.1-0.5 ALKALINE PHOSPHATASE (BEAKER) (test kdhg=061) 107 U/L 40-150 AST (SGOT) (BEAKER) (test hfpw=230) 26 U/L 5-34 ALT (SGPT) (BEAKER) (test qsun=562) 29 U/L 6-55 LACTATE DEHYDROGENASE (LDH)2017-08-03 11:15:00 Test Item Value Reference Range Comments LACTATE DEHYDROGENASE (BEAKER) (test fpqh=763) 258 U/L 125-220 [id number] 11:09:00 Test Item Value Reference Range Comments PREALBUMIN (BEAKER) (test svcx=301) 17 mg/dL 14-45 PROTHROMBIN [id number] 11:03:00 Test Item Value Reference Range Comments PROTIME (BEAKER) (test kwvh=304) 22.5 seconds 11.7-14.7 INR (BEAKER) (test ntqf=714) 2.0 <=5.9 RECOMMENDED COUMADIN/WARFARIN INR THERAPY RANGESSTANDARD DOSE: 2.0 - 3.0 Includes: PROPHYLAXIS forvenous thrombosis, systemic embolization; TREATMENT for venous thrombosis and/or pulmonary embolus.HIGH RISK: Target INR is 2.5-3.5 for patients with mechanical heart valves.CBC W/PLT COUNT & AUTO [id number] 10:55:00 Test Item Value Reference Range Comments WHITE BLOOD CELL COUNT (BEAKER) (test dyea=997) 8.0 K/ L 3.5-10.5 RED BLOOD CELL COUNT (BEAKER) (test viyr=002) 4.67 M/ L 4.63-6.08 HEMOGLOBIN (BEAKER) (test geav=889) 10.9 GM/DL 13.7-17.5 HEMATOCRIT (BEAKER) (test zgmn=648) 35.9 % 40.1-51.0 MEAN CORPUSCULAR VOLUME (BEAKER) (test sygg=294) 76.9 fL 79.0-92.2 MEAN CORPUSCULAR HEMOGLOBIN (BEAKER) (test 23.3 pg 25.7-32.2 roah=451) MEAN CORPUSCULAR HEMOGLOBIN CONC (BEAKER) (test 30.4 GM/DL 32.3-36.5 beol=678) RED CELL DISTRIBUTION WIDTH (BEAKER) (test 15.0 % 11.6-14.4 herx=391) PLATELET COUNT (BEAKER) (test svgg=081) 198 K/CU MM 150-450 MEAN PLATELET VOLUME (BEAKER) (test vhvf=788) 10.2 fL 9.4-12.4 NUCLEATED RED BLOOD CELLS (BEAKER) (test 0 /100 WBC 0-0 vpfv=421) NEUTROPHILS RELATIVE PERCENT (BEAKER) (test 69 % hlag=152) LYMPHOCYTES RELATIVE PERCENT (BEAKER) (test 20 % vdgv=804) MONOCYTES RELATIVE PERCENT (BEAKER) (test 8 % zwne=819) EOSINOPHILS RELATIVE PERCENT (BEAKER) (test 2 % lmei=102) BASOPHILS RELATIVE PERCENT (BEAKER) (test 1 % tijn=348) NEUTROPHILS ABSOLUTE COUNT (BEAKER) (test 5.50 K/ L 1.78-5.38 idpz=014) LYMPHOCYTES ABSOLUTE COUNT (BEAKER) (test 1.60 K/ L 1.32-3.57 rmzn=736) MONOCYTES ABSOLUTE COUNT (BEAKER) (test 0.61 K/ L 0.30-0.82 mgki=414) EOSINOPHILS ABSOLUTE COUNT (BEAKER) (test 0.18 K/ L 0.04-0.54 lrnz=966) BASOPHILS ABSOLUTE COUNT (BEAKER) (test 0.07 K/ L 0.01-0.08 kznm=865) IMMATURE GRANULOCYTES-RELATIVE PERCENT (BEAKER) 1 % 0-1 (test wequ=8558) [id number] 12:32:00 Test Item Value Reference Range Comments Coagulation (test 29.9 SEC 12.0-14.7 code=PT-T) Coagulation (test 2.7 ATTENTION: READ code=INR) CAREFULLY -The recommended therapeutic ranges for oral anticoagulanttreatments are: Low Intensity: 1.5 - 2.0 Moderate Intensity: 2.0 - 3.0 High Intensity (1): 2.5 - 3.5 High Intensity (2): 3.0 - 4.0 CRITICAL: > 4.0 CBC W/PLT COUNT & AUTO [id number] 11:34:00 Test Item Value Reference Range Comments WHITE BLOOD CELL COUNT (BEAKER) (test xnll=950) 6.9 K/ L 4.0-10.0 RED BLOOD CELL COUNT (BEAKER) (test lywj=653) 4.50 M/ L 4.20-5.80 HEMOGLOBIN (BEAKER) (test nhwx=677) 11.2 GM/DL 13.0-16.8 HEMATOCRIT (BEAKER) (test dbvo=394) 35.4 % 40.0-50.0 MEAN CORPUSCULAR VOLUME (BEAKER) (test pshs=677) 78.8 fL 82.0-98.0 MEAN CORPUSCULAR HEMOGLOBIN (BEAKER) (test 25.0 pg 27.0-33.0 enae=840) MEAN CORPUSCULAR HEMOGLOBIN CONC (BEAKER) (test 31.7 GM/DL 32.0-36.0 ooln=768) RED CELL DISTRIBUTION WIDTH (BEAKER) (test 14.1 % 10.3-14.2 fops=823) PLATELET COUNT (BEAKER) (test xarl=922) 175 K/CU MM 150-430 MEAN PLATELET VOLUME (BEAKER) (test sxqk=539) 8.0 fL 6.5-10.5 NUCLEATED RED BLOOD CELLS (BEAKER) (test 0 /100 WBC 0-0 qjzt=775) NEUTROPHILS RELATIVE PERCENT (BEAKER) (test 65 % lxoa=485) LYMPHOCYTES RELATIVE PERCENT (BEAKER) (test 25 % pxmk=136) MONOCYTES RELATIVE PERCENT (BEAKER) (test 8 % cwjd=543) EOSINOPHILS RELATIVE PERCENT (BEAKER) (test 2 % xxuh=460) BASOPHILS RELATIVE PERCENT (BEAKER) (test 1 % dyem=629) NEUTROPHILS ABSOLUTE COUNT (BEAKER) (test 4.46 K/ L 1.80-8.00 pqir=506) LYMPHOCYTES ABSOLUTE COUNT (BEAKER) (test 1.71 K/ L 1.48-4.50 kaxb=251) MONOCYTES ABSOLUTE COUNT (BEAKER) (test 0.55 K/ L 0.00-1.30 dzqn=819) EOSINOPHILS ABSOLUTE COUNT (BEAKER) (test 0.14 K/ L 0.00-0.50 qdnf=048) BASOPHILS ABSOLUTE COUNT (BEAKER) (test 0.05 K/ L 0.00-0.20 vred=963) 0.00PLASMA FREE [id number] 11:25:00 Test Item Value Reference Range Comments HEMOGLOBIN PLASMA (BEAKER) (test mxkw=4911) < mg/dl 0.0-30.0 [id number] 11:11:00 Test Item Value Reference Range Comments PREALBUMIN (BEAKER) (test mska=062) 17 mg/dL 14-45 [id number] 11:04:00 Test Item Value Reference Range Comments MAGNESIUM (BEAKER) (test vxim=758) 1.7 mg/dL 1.6-2.6 BASIC METABOLIC [id number] 11:04:00 Test Item Value Reference Range Comments SODIUM (BEAKER) (test 138 meq/L 136-145 lndj=023) POTASSIUM (BEAKER) (test 4.3 meq/L 3.5-5.1 ybxq=585) CHLORIDE (BEAKER) (test 100 meq/L 98-107 wmck=055) CO2 (BEAKER) (test 29 meq/L 22-29 uyrk=902) BLOOD UREA NITROGEN 26 mg/dL 7-21 (BEAKER) (test miuh=986) CREATININE (BEAKER) (test 1.24 mg/dL 0.57-1.25 vakp=558) GLUCOSE RANDOM (BEAKER) 211 mg/dL 70-105 (test zupf=428) CALCIUM (BEAKER) (test 8.9 mg/dL 8.4-10.2 uuel=584) EGFR (BEAKER) (test 61 mL/min/1.73 sq m ESTIMATED GFR IS NOT akmh=1951) ACCURATE CREATININE CLEARANCE IN PREDICTING GLOMERULAR FILTRATION RATE. ESTIMATED GFR IS NOT APPLICABLE FOR DIALYSIS PATIENTS. HEPATIC FUNCTION [id number] 11:04:00 Test Item Value Reference Range Comments TOTAL PROTEIN (BEAKER) (test hsyx=613) 7.4 gm/dL 6.0-8.3 ALBUMIN (BEAKER) (test qsgu=5827) 3.6 g/dL 3.5-5.0 BILIRUBIN TOTAL (BEAKER) (test uqhb=215) 0.6 mg/dL 0.2-1.2 BILIRUBIN DIRECT (BEAKER) (test eepj=294) 0.3 mg/dL 0.1-0.5 ALKALINE PHOSPHATASE (BEAKER) (test qndd=205) 117 U/L 40-150 AST (SGOT) (BEAKER) (test frkm=892) 25 U/L 5-34 ALT (SGPT) (BEAKER) (test vuql=127) 40 U/L 6-55 LACTATE DEHYDROGENASE (LDH)2017-06-04 11:04:00 Test Item Value Reference Range Comments LACTATE DEHYDROGENASE (BEAKER) (test ettr=213) 253 U/L 125-220 PROTHROMBIN [id number] 10:54:00 Test Item Value Reference Range Comments PROTIME (BEAKER) (test ctyr=721) 20.9 seconds 11.7-14.7 INR (BEAKER) (test ozyj=842) 1.8 <=5.9 RECOMMENDED COUMADIN/WARFARIN INR THERAPY RANGESSTANDARD DOSE: 2.0 - 3.0 Includes: PROPHYLAXIS forvenous thrombosis, systemic embolization; TREATMENT for venous thrombosis and/or pulmonary embolus.HIGH RISK: Target INR is 2.5-3.5 for patients with mechanical heart valves.T4, [id number] 14:16:00 Test Item Value Reference Range Comments FREE T4 (BEAKER) (test clcj=189) 1.04 ng/dL 0.70-1.48 [id number] 14:16:00 Test Item Value Reference Range Comments THYROID STIMULATING HORMONE (BEAKER) (test 1.79 uIU/mL 0.35-4.94 jmpc=886) [id number] 12:33:00 Test Item Value Reference Range Comments PREALBUMIN (BEAKER) (test nwpu=824) 18 mg/dL 14-45 [id number] 11:48:00 Test Item Value Reference Range Comments MAGNESIUM (BEAKER) (test rehp=250) 1.9 mg/dL 1.6-2.6 BASIC METABOLIC [id number] 11:48:00 Test Item Value Reference Range Comments SODIUM (BEAKER) (test 140 meq/L 136-145 lbna=117) POTASSIUM (BEAKER) (test 4.5 meq/L 3.5-5.1 tkjo=702) CHLORIDE (BEAKER) (test 103 meq/L 98-107 vqgw=059) CO2 (BEAKER) (test 30 meq/L 22-29 drma=561) BLOOD UREA NITROGEN 30 mg/dL 7-21 (BEAKER) (test fqco=150) CREATININE (BEAKER) (test 1.35 mg/dL 0.57-1.25 pfkb=568) GLUCOSE RANDOM (BEAKER) 164 mg/dL 70-105 (test xrcv=821) CALCIUM (BEAKER) (test 8.9 mg/dL 8.4-10.2 kvjq=916) EGFR (BEAKER) (test 55 mL/min/1.73 sq m ESTIMATED GFR IS NOT yaaz=4173) ACCURATE CREATININE CLEARANCE IN PREDICTING GLOMERULAR FILTRATION RATE. ESTIMATED GFR IS NOT APPLICABLE FOR DIALYSIS PATIENTS. HEPATIC FUNCTION [id number] 11:48:00 Test Item Value Reference Range Comments TOTAL PROTEIN (BEAKER) (test eqzc=591) 7.4 gm/dL 6.0-8.3 ALBUMIN (BEAKER) (test mhrr=3753) 3.5 g/dL 3.5-5.0 BILIRUBIN TOTAL (BEAKER) (test svsy=995) 0.5 mg/dL 0.2-1.2 BILIRUBIN DIRECT (BEAKER) (test rxmn=356) 0.2 mg/dL 0.1-0.5 ALKALINE PHOSPHATASE (BEAKER) (test lgjk=969) 119 U/L 40-150 AST (SGOT) (BEAKER) (test xshs=418) 27 U/L 5-34 ALT (SGPT) (BEAKER) (test gxxn=231) 38 U/L 6-55 LACTATE DEHYDROGENASE (LDH)2017-04-20 11:48:00 Test Item Value Reference Range Comments LACTATE DEHYDROGENASE (BEAKER) (test xzyw=930) 263 U/L 125-220 PROTHROMBIN [id number] 11:34:00 Test Item Value Reference Range Comments PROTIME (BEAKER) (test pwno=153) 26.7 seconds 11.7-14.7 INR (BEAKER) (test oxdd=201) 2.5 <=5.9 RECOMMENDED COUMADIN/WARFARIN INR THERAPY RANGESSTANDARD DOSE: 2.0 - 3.0 Includes: PROPHYLAXIS forvenous thrombosis, systemic embolization; TREATMENT for venous thrombosis and/or pulmonary embolus.HIGH RISK: Target INR is 2.5-3.5 for patients with mechanical heart valves.PLASMA FREE [id number] 11:34 :00 Test Item Value Reference Range Comments HEMOGLOBIN PLASMA (BEAKER) (test hqgu=5844) 30.0 mg/dl 0.0-30.0 CBC W/PLT COUNT & AUTO [id number] 11:32:00 Test Item Value Reference Range Comments WHITE BLOOD CELL COUNT (BEAKER) (test mmqi=938) 8.3 K/ L 4.0-10.0 RED BLOOD CELL COUNT (BEAKER) (test ivbd=794) 4.53 M/ L 4.20-5.80 HEMOGLOBIN (BEAKER) (test rppc=786) 11.7 GM/DL 13.0-16.8 HEMATOCRIT (BEAKER) (test bqte=661) 36.3 % 40.0-50.0 MEAN CORPUSCULAR VOLUME (BEAKER) (test rtby=598) 80.0 fL 82.0-98.0 MEAN CORPUSCULAR HEMOGLOBIN (BEAKER) (test 25.7 pg 27.0-33.0 bivy=780) MEAN CORPUSCULAR HEMOGLOBIN CONC (BEAKER) (test 32.2 GM/DL 32.0-36.0 qtux=758) RED CELL DISTRIBUTION WIDTH (BEAKER) (test 15.6 % 10.3-14.2 nqrh=779) PLATELET COUNT (BEAKER) (test hipc=479) 180 K/CU MM 150-430 MEAN PLATELET VOLUME (BEAKER) (test klsc=373) 7.8 fL 6.5-10.5 NUCLEATED RED BLOOD CELLS (BEAKER) (test 0 /100 WBC 0-0 yhca=198) NEUTROPHILS RELATIVE PERCENT (BEAKER) (test 63 % vorb=171) LYMPHOCYTES RELATIVE PERCENT (BEAKER) (test 27 % btvt=146) MONOCYTES RELATIVE PERCENT (BEAKER) (test 8 % dyxd=316) EOSINOPHILS RELATIVE PERCENT (BEAKER) (test 2 % iwjh=151) BASOPHILS RELATIVE PERCENT (BEAKER) (test 1 % iicr=295) NEUTROPHILS ABSOLUTE COUNT (BEAKER) (test 5.19 K/ L 1.80-8.00 iksx=669) LYMPHOCYTES ABSOLUTE COUNT (BEAKER) (test 2.22 K/ L 1.48-4.50 wjcs=373) MONOCYTES ABSOLUTE COUNT (BEAKER) (test 0.65 K/ L 0.00-1.30 wfgi=839) EOSINOPHILS ABSOLUTE COUNT (BEAKER) (test 0.17 K/ L 0.00-0.50 ztbx=972) BASOPHILS ABSOLUTE COUNT (BEAKER) (test 0.07 K/ L 0.00-0.20 rycz=549) [id number] 10:44:00 Test Item Value Reference Range Comments FERRITIN (BEAKER) (test xsdc=377) 26 ng/mL 5-275 Effective 10/06/2014: Reference Range ChangeNew: Male 5-275 Previous: Male 22-322 Female 5-275 Female 10-291PLASMA FREE [id number] 10:28:00 Test Item Value Reference Range Comments HEMOGLOBIN PLASMA (BEAKER) (test sota=4548) < mg/dl 0.0-30.0 [id number] 10:23:00 Test Item Value Reference Range Comments PREALBUMIN (BEAKER) (test kwgt=532) 18 mg/dL 14-45 IRON, TIBC, % SAT. (WITHOUT FERRITIN)2017-03-16 10:23:00 Test Item Value Reference Range Comments IRON (BEAKER) (test athd=203) 52 ug/dL 40-160 TOTAL IRON BINDING CAPACITY (BEAKER) (test 413 ug/dL 250-450 sipb=281) IRON % SATURATION (2) (BEAKER) (test xxkp=9611) 13 % 20-55 [id number] 10:22:00 Test Item Value Reference Range Comments MAGNESIUM (BEAKER) (test hrrg=625) 1.8 mg/dL 1.6-2.6 BASIC METABOLIC [id number] 10:22:00 Test Item Value Reference Range Comments SODIUM (BEAKER) (test 132 meq/L 136-145 djtk=806) POTASSIUM (BEAKER) (test 4.5 meq/L 3.5-5.1 rrim=093) CHLORIDE (BEAKER) (test 97 meq/L 98-107 fxlx=852) CO2 (BEAKER) (test 25 meq/L 22-29 hjsx=712) BLOOD UREA NITROGEN 28 mg/dL 7-21 (BEAKER) (test lgvw=178) CREATININE (BEAKER) (test 1.40 mg/dL 0.57-1.25 prxk=579) GLUCOSE RANDOM (BEAKER) 278 mg/dL 70-105 (test phik=984) CALCIUM (BEAKER) (test 9.1 mg/dL 8.4-10.2 awjw=152) EGFR (BEAKER) (test 53 mL/min/1.73 sq m ESTIMATED GFR IS NOT lusy=6511) ACCURATE CREATININE CLEARANCE IN PREDICTING GLOMERULAR FILTRATION RATE. ESTIMATED GFR IS NOT APPLICABLE FOR DIALYSIS PATIENTS. LIPID [id number] 10:22:00 Test Item Value Reference Range Comments TRIGLYCERIDES (BEAKER) (test kcoy=514) 227 mg/dL CHOLESTEROL (BEAKER) (test iwbe=966) 174 mg/dL HDL CHOLESTEROL (BEAKER) (test lzkl=468) 32 mg/dL LDL CHOLESTEROL CALCULATED (BEAKER) (test 97 mg/dL siht=406) Triglyceride Reference Range: Low Risk <150 Borderline 150- 199 High Risk 200-499 Very High Risk >=500Cholesterol Reference Range: Low Risk <200 Borderline 200-239 High Risk > 240HDL Cholesterol Reference Range: Low Risk >=60 High Risk <40LDL Cholesterol Reference Range: Optimal <100 Near Optimal 100-129 Borderline 130-159 High 160-189 Very High >=190HEPATIC FUNCTION [id number] 10:22:00 Test Item Value Reference Range Comments TOTAL PROTEIN (BEAKER) (test ylhy=393) 7.4 gm/dL 6.0-8.3 ALBUMIN (BEAKER) (test dxgx=5196) 3.5 g/dL 3.5-5.0 BILIRUBIN TOTAL (BEAKER) (test bkzi=450) 0.4 mg/dL 0.2-1.2 BILIRUBIN DIRECT (BEAKER) (test rdlz=495) 0.2 mg/dL 0.1-0.5 ALKALINE PHOSPHATASE (BEAKER) (test yplq=458) 126 U/L 40-150 AST (SGOT) (BEAKER) (test qhmw=400) 23 U/L 5-34 ALT (SGPT) (BEAKER) (test ulpg=395) 33 U/L 6-55 LACTATE DEHYDROGENASE (LDH)2017-03-16 10:22:00 Test Item Value Reference Range Comments LACTATE DEHYDROGENASE (BEAKER) (test fkta=741) 274 U/L 125-220 PROTHROMBIN [id number] 10:12:00 Test Item Value Reference Range Comments PROTIME (BEAKER) (test cpfg=935) 20.8 seconds 11.7-14.7 INR (BEAKER) (test jtig=088) 1.8 <=5.9 RECOMMENDED COUMADIN/WARFARIN INR THERAPY RANGESSTANDARD DOSE: 2.0 - 3.0 Includes: PROPHYLAXIS forvenous thrombosis, systemic embolization; TREATMENT for venous thrombosis and/or pulmonary embolus.HIGH RISK: Target INR is 2.5-3.5 for patients with mechanical heart valves.CBC W/PLT COUNT & AUTO [id number] 10:06:00 Test Item Value Reference Range Comments WHITE BLOOD CELL COUNT (BEAKER) (test nded=883) 8.1 K/ L 4.0-10.0 RED BLOOD CELL COUNT (BEAKER) (test kckb=134) 4.55 M/ L 4.20-5.80 HEMOGLOBIN (BEAKER) (test rxgy=482) 12.3 GM/DL 13.0-16.8 HEMATOCRIT (BEAKER) (test dmgx=702) 36.9 % 40.0-50.0 MEAN CORPUSCULAR VOLUME (BEAKER) (test brxh=382) 81.2 fL 82.0-98.0 MEAN CORPUSCULAR HEMOGLOBIN (BEAKER) (test 26.9 pg 27.0-33.0 ajoc=288) MEAN CORPUSCULAR HEMOGLOBIN CONC (BEAKER) (test 33.2 GM/DL 32.0-36.0 xlmk=454) RED CELL DISTRIBUTION WIDTH (BEAKER) (test 15.1 % 10.3-14.2 wpzp=045) PLATELET COUNT (BEAKER) (test jyvg=206) 171 K/CU MM 150-430 MEAN PLATELET VOLUME (BEAKER) (test cdek=998) 8.4 fL 6.5-10.5 NUCLEATED RED BLOOD CELLS (BEAKER) (test 0 /100 WBC 0-0 jcpb=476) NEUTROPHILS RELATIVE PERCENT (BEAKER) (test 61 % smgw=845) LYMPHOCYTES RELATIVE PERCENT (BEAKER) (test 29 % mwts=995) MONOCYTES RELATIVE PERCENT (BEAKER) (test 8 % kmmn=782) EOSINOPHILS RELATIVE PERCENT (BEAKER) (test 2 % ucca=946) BASOPHILS RELATIVE PERCENT (BEAKER) (test 1 % jnas=825) NEUTROPHILS ABSOLUTE COUNT (BEAKER) (test 4.98 K/ L 1.80-8.00 bsni=962) LYMPHOCYTES ABSOLUTE COUNT (BEAKER) (test 2.32 K/ L 1.48-4.50 znfy=710) MONOCYTES ABSOLUTE COUNT (BEAKER) (test 0.62 K/ L 0.00-1.30 ttlk=291) EOSINOPHILS ABSOLUTE COUNT (BEAKER) (test 0.15 K/ L 0.00-0.50 dspt=034) BASOPHILS ABSOLUTE COUNT (BEAKER) (test 0.05 K/ L 0.00-0.20 ivwe=674) [id number] 10:31:00 Test Item Value Reference Range Comments PREALBUMIN (BEAKER) (test aotg=062) 17 mg/dL 14-45 IRON, TIBC, % SAT. (WITHOUT FERRITIN)2017-02-02 10:31:00 Test Item Value Reference Range Comments IRON (BEAKER) (test zhfq=815) 271 ug/dL 40-160 TOTAL IRON BINDING CAPACITY (BEAKER) (test 351 ug/dL 250-450 rvcd=329) IRON % SATURATION (2) (BEAKER) (test firk=9711) 77 % 20-55 [id number] 10:24:00 Test Item Value Reference Range Comments FERRITIN (BEAKER) (test vvtp=701) 45 ng/mL 5-275 Effective 10/06/2014: Reference Range ChangeNew: Male 5-275 Previous: Male 22-322 Female 5-275 Female [id number] 10:05: 00 Test Item Value Reference Range Comments MAGNESIUM (BEAKER) (test sfhy=646) 1.7 mg/dL 1.6-2.6 BASIC METABOLIC [id number] 10:05:00 Test Item Value Reference Range Comments SODIUM (BEAKER) (test 137 meq/L 136-145 lcmk=504) POTASSIUM (BEAKER) (test 3.6 meq/L 3.5-5.1 brjc=679) CHLORIDE (BEAKER) (test 98 meq/L 98-107 mamr=115) CO2 (BEAKER) (test 29 meq/L 22-29 iurh=412) BLOOD UREA NITROGEN 16 mg/dL 7-21 (BEAKER) (test gvbr=551) CREATININE (BEAKER) (test 1.31 mg/dL 0.57-1.25 ibjx=505) GLUCOSE RANDOM (BEAKER) 284 mg/dL 70-105 (test tcbi=618) CALCIUM (BEAKER) (test 8.7 mg/dL 8.4-10.2 wwil=625) EGFR (BEAKER) (test 57 mL/min/1.73 sq m ESTIMATED GFR IS NOT txfx=7684) ACCURATE CREATININE CLEARANCE IN PREDICTING GLOMERULAR FILTRATION RATE. ESTIMATED GFR IS NOT APPLICABLE FOR DIALYSIS PATIENTS. HEPATIC FUNCTION [id number] 10:05:00 Test Item Value Reference Range Comments TOTAL PROTEIN (BEAKER) (test lzek=795) 7.4 gm/dL 6.0-8.3 ALBUMIN (BEAKER) (test tzdg=1773) 3.6 g/dL 3.5-5.0 BILIRUBIN TOTAL (BEAKER) (test sptv=966) 0.6 mg/dL 0.2-1.2 BILIRUBIN DIRECT (BEAKER) (test qicl=112) 0.3 mg/dL 0.1-0.5 ALKALINE PHOSPHATASE (BEAKER) (test koeg=170) 124 U/L 40-150 AST (SGOT) (BEAKER) (test jcwj=339) 24 U/L 5-34 ALT (SGPT) (BEAKER) (test jshm=136) 37 U/L 6-55 LACTATE DEHYDROGENASE (LDH)2017-02-02 10:05:00 Test Item Value Reference Range Comments LACTATE DEHYDROGENASE (BEAKER) (test ihhn=232) 258 U/L 125-220 PROTHROMBIN [id number] 10:01:00 Test Item Value Reference Range Comments PROTIME (BEAKER) (test rcvv=700) 19.9 seconds 11.7-14.7 INR (BEAKER) (test qdvh=144) 1.7 <=5.9 RECOMMENDED COUMADIN/WARFARIN INR THERAPY RANGESSTANDARD DOSE: 2.0 - 3.0 Includes: PROPHYLAXIS forvenous thrombosis, systemic embolization; TREATMENT for venous thrombosis and/or pulmonary embolus.HIGH RISK: Target INR is 2.5-3.5 for patients with mechanical heart valves.CBC W/PLT COUNT & AUTO [id number] 09:49:00 Test Item Value Reference Range Comments WHITE BLOOD CELL COUNT (BEAKER) (test bjrd=349) 7.1 K/ L 4.0-10.0 RED BLOOD CELL COUNT (BEAKER) (test snlk=314) 4.41 M/ L 4.20-5.80 HEMOGLOBIN (BEAKER) (test qlhp=733) 12.6 GM/DL 13.0-16.8 HEMATOCRIT (BEAKER) (test bouk=645) 39.9 % 40.0-50.0 MEAN CORPUSCULAR VOLUME (BEAKER) (test fgxe=301) 90.4 fL 82.0-98.0 MEAN CORPUSCULAR HEMOGLOBIN (BEAKER) (test 28.6 pg 27.0-33.0 cvyk=135) MEAN CORPUSCULAR HEMOGLOBIN CONC (BEAKER) (test 31.6 GM/DL 32.0-36.0 lzyt=167) RED CELL DISTRIBUTION WIDTH (BEAKER) (test 15.3 % 10.3-14.2 xxsh=946) PLATELET COUNT (BEAKER) (test wctl=910) 188 K/CU MM 150-430 MEAN PLATELET VOLUME (BEAKER) (test wmpt=497) 7.7 fL 6.5-10.5 NUCLEATED RED BLOOD CELLS (BEAKER) (test 0 /100 WBC 0-0 gasg=008) NEUTROPHILS RELATIVE PERCENT (BEAKER) (test 68 % iohb=883) LYMPHOCYTES RELATIVE PERCENT (BEAKER) (test 22 % vkgt=219) MONOCYTES RELATIVE PERCENT (BEAKER) (test 8 % vdyz=270) EOSINOPHILS RELATIVE PERCENT (BEAKER) (test 1 % euwj=121) BASOPHILS RELATIVE PERCENT (BEAKER) (test 0 % tqtl=060) NEUTROPHILS ABSOLUTE COUNT (BEAKER) (test 4.82 K/ L 1.80-8.00 evlz=660) LYMPHOCYTES ABSOLUTE COUNT (BEAKER) (test 1.54 K/ L 1.48-4.50 rojo=040) MONOCYTES ABSOLUTE COUNT (BEAKER) (test 0.60 K/ L 0.00-1.30 vuwd=878) EOSINOPHILS ABSOLUTE COUNT (BEAKER) (test 0.11 K/ L 0.00-0.50 xixe=320) BASOPHILS ABSOLUTE COUNT (BEAKER) (test 0.02 K/ L 0.00-0.20 dqjx=367) 0.00POCT-GLUCOSE [id number] 09:10:00 Test Item Value Reference Range Comments POC-GLUCOSE METER (BEAKER) 221 mg/dL 70-110 TESTED AT [place] [id number] [facility] (test lrzk=6972) [facility] [address] B-TYPE NATRIURETIC FACTOR (BNP)2017-01-19 02:46:00 Test Item Value Reference Range Comments B-TYPE NATRIURETIC PEPTIDE (BEAKER) (test 254 pg/mL 0-100 ujfu=578) [id number] 02:43:00 Test Item Value Reference Range Comments LIPASE (BEAKER) (test lhzl=210) 19 U/L 8-78 [id number] 02:43:00 Test Item Value Reference Range Comments AMYLASE (BEAKER) (test gatm=770) 15 U/L 25-125 BASIC METABOLIC [id number] 02:43:00 Test Item Value Reference Range Comments SODIUM (BEAKER) (test 133 meq/L 136-145 omfr=785) POTASSIUM (BEAKER) (test 4.2 meq/L 3.5-5.1 txdk=882) CHLORIDE (BEAKER) (test 94 meq/L 98-107 aedk=081) CO2 (BEAKER) (test 29 meq/L 22-29 rpzh=900) BLOOD UREA NITROGEN 18 mg/dL 7-21 (BEAKER) (test wfjt=667) CREATININE (BEAKER) (test 1.25 mg/dL 0.57-1.25 lzxv=092) GLUCOSE RANDOM (BEAKER) 198 mg/dL 70-105 (test fnjo=067) CALCIUM (BEAKER) (test 8.9 mg/dL 8.4-10.2 layi=364) EGFR (BEAKER) (test 60 mL/min/1.73 sq m ESTIMATED GFR IS NOT gtpw=9270) ACCURATE CREATININE CLEARANCE IN PREDICTING GLOMERULAR FILTRATION RATE. ESTIMATED GFR IS NOT APPLICABLE FOR DIALYSIS PATIENTS. HEPATIC FUNCTION [id number] 02:43:00 Test Item Value Reference Range Comments TOTAL PROTEIN (BEAKER) (test igbn=585) 6.3 gm/dL 6.0-8.3 ALBUMIN (BEAKER) (test mldc=2456) 3.0 g/dL 3.5-5.0 BILIRUBIN TOTAL (BEAKER) (test ghdu=510) 0.6 mg/dL 0.2-1.2 BILIRUBIN DIRECT (BEAKER) (test lqmf=168) 0.3 mg/dL 0.1-0.5 ALKALINE PHOSPHATASE (BEAKER) (test egbr=958) 100 U/L 40-150 AST (SGOT) (BEAKER) (test yqit=776) 31 U/L 5-34 ALT (SGPT) (BEAKER) (test bnop=192) 27 U/L 6-55 PROTHROMBIN [id number] 02:28:00 Test Item Value Reference Range Comments PROTIME (BEAKER) (test ygby=690) 17.0 seconds 11.7-14.7 INR (BEAKER) (test unnc=154) 1.4 <=5.9 RECOMMENDED COUMADIN/WARFARIN INR THERAPY RANGESSTANDARD DOSE: 2.0 - 3.0 Includes: PROPHYLAXIS forvenous thrombosis, systemic embolization; TREATMENT for venous thrombosis and/or pulmonary embolus.HIGH RISK: Target INR is 2.5-3.5 for patients with mechanical heart valves.[id number] 02:25:00 Test Item Value Reference Range Comments PARTIAL THROMBOPLASTIN TIME (BEAKER) (test 61.3 seconds 22.5-36.0 qcbu=847) HEMOGLOBIN AND [id number] 02:22:00 Test Item Value Reference Range Comments HEMOGLOBIN (BEAKER) (test cmuj=425) 9.3 GM/DL 13.0-16.8 HEMATOCRIT (BEAKER) (test jzyx=570) 27.2 % 40.0-50.0 POCT-GLUCOSE [id number] 20:47:00 Test Item Value Reference Range Comments POC-GLUCOSE METER (BEAKER) 171 mg/dL 70-110 TESTED AT [address] (test wjfh=0032) [place] [address] [id number] 19:02:00 Test Item Value Reference Range Comments PARTIAL THROMBOPLASTIN TIME (BEAKER) (test 74.9 seconds 22.5-36.0 vhfc=376) POCT-GLUCOSE [id number] 16:58:00 Test Item Value Reference Range Comments POC-GLUCOSE METER (BEAKER) 214 mg/dL 70-110 TESTED AT [address] (test dzwo=8191) [place] [address] POCT-GLUCOSE [id number] 12:21:00 Test Item Value Reference Range Comments POC-GLUCOSE METER (BEAKER) 193 mg/dL 70-110 TESTED AT [address] (test zxkz=5306) [place] [address] [id number] 11:17:00 Test Item Value Reference Range Comments PARTIAL THROMBOPLASTIN TIME (BEAKER) (test 91.3 seconds 22.5-36.0 iece=724) POCT-GLUCOSE [id number] 07:32:00 Test Item Value Reference Range Comments POC-GLUCOSE METER (BEAKER) 293 mg/dL 70-110 TESTED AT [address] (test wzjg=4496) [place] [address] HEMOGLOBIN AND [id number] 04:16:00 Test Item Value Reference Range Comments HEMOGLOBIN (BEAKER) (test zkar=703) 9.4 GM/DL 13.0-16.8 HEMATOCRIT (BEAKER) (test iwoa=104) 26.9 % 40.0-50.0 BASIC METABOLIC [id number] 03:51:00 Test Item Value Reference Range Comments SODIUM (BEAKER) (test 133 meq/L 136-145 nntz=082) POTASSIUM (BEAKER) (test 4.0 meq/L 3.5-5.1 yryr=938) CHLORIDE (BEAKER) (test 98 meq/L 98-107 injt=945) CO2 (BEAKER) (test 26 meq/L 22-29 jvsr=533) BLOOD UREA NITROGEN 23 mg/dL 7-21 (BEAKER) (test jhqz=206) CREATININE (BEAKER) (test 1.29 mg/dL 0.57-1.25 zfpq=333) GLUCOSE RANDOM (BEAKER) 226 mg/dL 70-105 (test axri=385) CALCIUM (BEAKER) (test 7.8 mg/dL 8.4-10.2 nvaf=641) EGFR (BEAKER) (test 58 mL/min/1.73 sq m ESTIMATED GFR IS NOT qavy=5148) ACCURATE CREATININE CLEARANCE IN PREDICTING GLOMERULAR FILTRATION RATE. ESTIMATED GFR IS NOT APPLICABLE FOR DIALYSIS PATIENTS. [id number] 03:44:00 Test Item Value Reference Range Comments PARTIAL THROMBOPLASTIN TIME (BEAKER) (test 91.0 seconds 22.5-36.0 uglx=144) PROTHROMBIN [id number] 03:42:00 Test Item Value Reference Range Comments PROTIME (BEAKER) (test pcgz=217) 15.2 seconds 11.7-14.7 INR (BEAKER) (test niek=903) 1.2 <=5.9 RECOMMENDED COUMADIN/WARFARIN INR THERAPY RANGESSTANDARD DOSE: 2.0 - 3.0 Includes: PROPHYLAXIS forvenous thrombosis, systemic embolization; TREATMENT for venous thrombosis and/or pulmonary embolus.HIGH RISK: Target INR is 2.5-3.5 for patients with mechanical heart valves.POCT-GLUCOSE [id number] 22:02:00 Test Item Value Reference Range Comments POC-GLUCOSE METER (BEAKER) 270 mg/dL 70-110 TESTED AT [address] (test ndeb=7894) [place] [id number] 19:30:00 Test Item Value Reference Range Comments PARTIAL THROMBOPLASTIN TIME (BEAKER) (test 99.9 seconds 22.5-36.0 skma=557) POCT-GLUCOSE [id number] 16:39:00 Test Item Value Reference Range Comments POC-GLUCOSE METER (BEAKER) 297 mg/dL 70-110 TESTED AT [address] (test mael=8708) [place] [address] [id number] 13:19:00 Test Item Value Reference Range Comments PARTIAL THROMBOPLASTIN TIME (BEAKER) (test 70.5 seconds 22.5-36.0 wvvh=643) POCT-GLUCOSE [id number] 12:29:00 Test Item Value Reference Range Comments POC-GLUCOSE METER (BEAKER) 236 mg/dL 70-110 TESTED AT [address] (test sdxq=8281) [place] [address] POCT-GLUCOSE [id number] 07:22:00 Test Item Value Reference Range Comments POC-GLUCOSE METER (BEAKER) 207 mg/dL 70-110 TESTED AT [address] (test cbrc=6914) [place] [address] CBC W/PLT COUNT & AUTO [id number] 06:41:00 Test Item Value Reference Range Comments WHITE BLOOD CELL COUNT (BEAKER) (test mcsv=036) 7.7 K/ L 4.0-10.0 RED BLOOD CELL COUNT (BEAKER) (test vbug=885) 3.00 M/ L 4.20-5.80 HEMOGLOBIN (BEAKER) (test cpls=608) 9.2 GM/DL 13.0-16.8 HEMATOCRIT (BEAKER) (test wrin=228) 26.7 % 40.0-50.0 MEAN CORPUSCULAR VOLUME (BEAKER) (test fyhn=536) 89.1 fL 82.0-98.0 MEAN CORPUSCULAR HEMOGLOBIN (BEAKER) (test 30.8 pg 27.0-33.0 mewh=884) MEAN CORPUSCULAR HEMOGLOBIN CONC (BEAKER) (test 34.6 GM/DL 32.0-36.0 jnrp=719) RED CELL DISTRIBUTION WIDTH (BEAKER) (test 17.6 % 10.3-14.2 kpbg=198) PLATELET COUNT (BEAKER) (test knyr=742) 168 K/CU MM 150-430 MEAN PLATELET VOLUME (BEAKER) (test qmaa=154) 8.4 fL 6.5-10.5 NUCLEATED RED BLOOD CELLS (BEAKER) (test 0 /100 WBC 0-0 bpxf=553) NEUTROPHILS RELATIVE PERCENT (BEAKER) (test 79 % xuom=186) LYMPHOCYTES RELATIVE PERCENT (BEAKER) (test 11 % hksk=751) MONOCYTES RELATIVE PERCENT (BEAKER) (test 8 % wzut=621) EOSINOPHILS RELATIVE PERCENT (BEAKER) (test 1 % zzaw=014) BASOPHILS RELATIVE PERCENT (BEAKER) (test 0 % erlm=921) NEUTROPHILS ABSOLUTE COUNT (BEAKER) (test 6.09 K/ L 1.80-8.00 ekce=790) LYMPHOCYTES ABSOLUTE COUNT (BEAKER) (test 0.86 K/ L 1.48-4.50 aaxy=267) MONOCYTES ABSOLUTE COUNT (BEAKER) (test 0.60 K/ L 0.00-1.30 jhdm=211) EOSINOPHILS ABSOLUTE COUNT (BEAKER) (test 0.09 K/ L 0.00-0.50 cqsm=906) BASOPHILS ABSOLUTE COUNT (BEAKER) (test 0.03 K/ L 0.00-0.20 xxjj=526) 0.00BASIC METABOLIC [id number] 06:31:00 Test Item Value Reference Range Comments SODIUM (BEAKER) (test 133 meq/L 136-145 bvww=915) POTASSIUM (BEAKER) (test 4.1 meq/L 3.5-5.1 cxzc=569) CHLORIDE (BEAKER) (test 100 meq/L 98-107 psai=899) CO2 (BEAKER) (test 24 meq/L 22-29 ylfv=934) BLOOD UREA NITROGEN 26 mg/dL 7-21 (BEAKER) (test gkyl=369) CREATININE (BEAKER) (test 1.26 mg/dL 0.57-1.25 zfwj=278) GLUCOSE RANDOM (BEAKER) 221 mg/dL 70-105 (test wzyt=070) CALCIUM (BEAKER) (test 8.1 mg/dL 8.4-10.2 okfc=079) EGFR (BEAKER) (test 60 mL/min/1.73 sq m ESTIMATED GFR IS NOT rnpb=4864) ACCURATE CREATININE CLEARANCE IN PREDICTING GLOMERULAR FILTRATION RATE. ESTIMATED GFR IS NOT APPLICABLE FOR DIALYSIS PATIENTS. [id number] 06:20:00 Test Item Value Reference Range Comments PARTIAL THROMBOPLASTIN TIME (BEAKER) (test 33.9 seconds 22.5-36.0 jnub=284) PROTHROMBIN [id number] 06:19:00 Test Item Value Reference Range Comments PROTIME (BEAKER) (test roej=694) 14.6 seconds 11.7-14.7 INR (BEAKER) (test ssrw=919) 1.2 <=5.9 RECOMMENDED COUMADIN/WARFARIN INR THERAPY RANGESSTANDARD DOSE: 2.0 - 3.0 Includes: PROPHYLAXIS forvenous thrombosis, systemic embolization; TREATMENT for venous thrombosis and/or pulmonary embolus.HIGH RISK: Target INR is 2.5-3.5 for patients with mechanical heart valves.POCT-GLUCOSE [id number] 22:35:00 Test Item Value Reference Range Comments POC-GLUCOSE METER (BEAKER) 239 mg/dL 70-110 TESTED AT [address] (test payl=6977) [place] [address] [id number] 20:55:00 Test Item Value Reference Range Comments PARTIAL THROMBOPLASTIN TIME (BEAKER) (test 28.7 seconds 22.5-36.0 zxjm=859) POCT-GLUCOSE [id number] 17:07:00 Test Item Value Reference Range Comments POC-GLUCOSE METER (BEAKER) 346 mg/dL 70-110 TESTED AT [address] (test nwjf=7453) [place] [id number] POCT-GLUCOSE [id number] 17:00:00 Test Item Value Reference Range Comments POC-GLUCOSE METER (BEAKER) 306 mg/dL 70-110 TESTED AT [address] (test mrgs=0166) [place] [address] POCT-GLUCOSE [id number] 12:11:00 Test Item Value Reference Range Comments POC-GLUCOSE METER (BEAKER) 268 mg/dL 70-110 TESTED AT [address] (test ronu=0121) [place] [address] POCT-GLUCOSE [id number] 08:17:00 Test Item Value Reference Range Comments POC-GLUCOSE METER (BEAKER) 276 mg/dL 70-110 TESTED AT [place] [id number] [facility] (test dbpd=4706) [place] [address] CBC W/PLT COUNT & AUTO [id number] 06:10:00 Test Item Value Reference Range Comments WHITE BLOOD CELL COUNT (BEAKER) (test sgwt=773) 6.9 K/ L 4.0-10.0 RED BLOOD CELL COUNT (BEAKER) (test wsca=762) 3.03 M/ L 4.20-5.80 HEMOGLOBIN (BEAKER) (test hgdq=049) 9.3 GM/DL 13.0-16.8 HEMATOCRIT (BEAKER) (test zyff=986) 26.8 % 40.0-50.0 MEAN CORPUSCULAR VOLUME (BEAKER) (test ajvn=153) 88.7 fL 82.0-98.0 MEAN CORPUSCULAR HEMOGLOBIN (BEAKER) (test 30.8 pg 27.0-33.0 dzlu=666) MEAN CORPUSCULAR HEMOGLOBIN CONC (BEAKER) (test 34.7 GM/DL 32.0-36.0 ojsa=911) RED CELL DISTRIBUTION WIDTH (BEAKER) (test 16.5 % 10.3-14.2 qdrm=158) PLATELET COUNT (BEAKER) (test xjpl=601) 197 K/CU MM 150-430 MEAN PLATELET VOLUME (BEAKER) (test rxxe=455) 8.5 fL 6.5-10.5 NUCLEATED RED BLOOD CELLS (BEAKER) (test 0 /100 WBC 0-0 ffpk=230) NEUTROPHILS RELATIVE PERCENT (BEAKER) (test 66 % choc=091) LYMPHOCYTES RELATIVE PERCENT (BEAKER) (test 24 % kbgh=999) MONOCYTES RELATIVE PERCENT (BEAKER) (test 7 % wgzb=242) EOSINOPHILS RELATIVE PERCENT (BEAKER) (test 2 % tyui=648) BASOPHILS RELATIVE PERCENT (BEAKER) (test 1 % aiwb=634) NEUTROPHILS ABSOLUTE COUNT (BEAKER) (test 4.52 K/ L 1.80-8.00 anja=505) LYMPHOCYTES ABSOLUTE COUNT (BEAKER) (test 1.64 K/ L 1.48-4.50 hrgk=252) MONOCYTES ABSOLUTE COUNT (BEAKER) (test 0.50 K/ L 0.00-1.30 lxuq=440) EOSINOPHILS ABSOLUTE COUNT (BEAKER) (test 0.15 K/ L 0.00-0.50 egcd=397) BASOPHILS ABSOLUTE COUNT (BEAKER) (test 0.05 K/ L 0.00-0.20 tacr=611) [id number] 06:03:00 Test Item Value Reference Range Comments MAGNESIUM (BEAKER) (test cjaa=177) 1.7 mg/dL 1.6-2.6 BASIC METABOLIC [id number] 06:03:00 Test Item Value Reference Range Comments SODIUM (BEAKER) (test 135 meq/L 136-145 hunr=560) POTASSIUM (BEAKER) (test 4.1 meq/L 3.5-5.1 lzmz=658) CHLORIDE (BEAKER) (test 104 meq/L 98-107 sgvv=965) CO2 (BEAKER) (test 22 meq/L 22-29 agez=380) BLOOD UREA NITROGEN 30 mg/dL 7-21 (BEAKER) (test comh=646) CREATININE (BEAKER) (test 1.17 mg/dL 0.57-1.25 ymlq=448) GLUCOSE RANDOM (BEAKER) 266 mg/dL 70-105 (test abpl=265) CALCIUM (BEAKER) (test 8.4 mg/dL 8.4-10.2 ingv=542) EGFR (BEAKER) (test 65 mL/min/1.73 sq m ESTIMATED GFR IS NOT asrz=3133) ACCURATE CREATININE CLEARANCE IN PREDICTING GLOMERULAR FILTRATION RATE. ESTIMATED GFR IS NOT APPLICABLE FOR DIALYSIS PATIENTS. LACTATE DEHYDROGENASE (LDH)2017-01-16 06:03:00 Test Item Value Reference Range Comments LACTATE DEHYDROGENASE (BEAKER) (test xmgj=189) 233 U/L 125-220 PROTHROMBIN [id number] 05:44:00 Test Item Value Reference Range Comments PROTIME (BEAKER) (test tlpt=982) 16.0 seconds 11.7-14.7 INR (BEAKER) (test ksmm=763) 1.3 <=5.9 RECOMMENDED COUMADIN/WARFARIN INR THERAPY RANGESSTANDARD DOSE: 2.0 - 3.0 Includes: PROPHYLAXIS forvenous thrombosis, systemic embolization; TREATMENT for venous thrombosis and/or pulmonary embolus.HIGH RISK: Target INR is 2.5-3.5 for patients with mechanical heart valves.POCT-GLUCOSE [id number] 21:29:00 Test Item Value Reference Range Comments POC-GLUCOSE METER (BEAKER) 192 mg/dL 70-110 TESTED AT [address] (test tslk=1435) [place] [address] POCT-GLUCOSE [id number] 17:50:00 Test Item Value Reference Range Comments POC-GLUCOSE METER (BEAKER) 267 mg/dL 70-110 TESTED AT [address] (test jiou=7866) [place] [address] POCT-GLUCOSE [id number] 12:22:00 Test Item Value Reference Range Comments POC-GLUCOSE METER (BEAKER) 240 mg/dL 70-110 TESTED AT [address] (test nbsz=3835) [place] [address] POCT-GLUCOSE [id number] 08:02:00 Test Item Value Reference Range Comments POC-GLUCOSE METER (BEAKER) 200 mg/dL 70-110 TESTED AT [address] (test yaog=8549) [place] [address] [id number] 06:06:00 Test Item Value Reference Range Comments MAGNESIUM (BEAKER) (test juid=006) 2.1 mg/dL 1.6-2.6 BASIC METABOLIC [id number] 06:06:00 Test Item Value Reference Range Comments SODIUM (BEAKER) (test 138 meq/L 136-145 dxpj=501) POTASSIUM (BEAKER) (test 5.1 meq/L 3.5-5.1 gukv=395) CHLORIDE (BEAKER) (test 104 meq/L 98-107 giom=500) CO2 (BEAKER) (test 27 meq/L 22-29 wqxb=177) BLOOD UREA NITROGEN 37 mg/dL 7-21 (BEAKER) (test wzum=402) CREATININE (BEAKER) (test 1.14 mg/dL 0.57-1.25 swtd=675) GLUCOSE RANDOM (BEAKER) 168 mg/dL 70-105 (test xebq=899) CALCIUM (BEAKER) (test 8.6 mg/dL 8.4-10.2 fwhf=155) EGFR (BEAKER) (test 67 mL/min/1.73 sq m ESTIMATED GFR IS NOT yhsh=1884) ACCURATE CREATININE CLEARANCE IN PREDICTING GLOMERULAR FILTRATION RATE. ESTIMATED GFR IS NOT APPLICABLE FOR DIALYSIS PATIENTS. LACTATE DEHYDROGENASE (LDH)2017-01-15 06:06:00 Test Item Value Reference Range Comments LACTATE DEHYDROGENASE (BEAKER) (test udzo=337) 205 U/L 125-220 CBC W/PLT COUNT & AUTO [id number] 05:45:00 Test Item Value Reference Range Comments WHITE BLOOD CELL COUNT (BEAKER) (test flgf=763) 8.3 K/ L 4.0-10.0 RED BLOOD CELL COUNT (BEAKER) (test qqpw=490) 3.15 M/ L 4.20-5.80 HEMOGLOBIN (BEAKER) (test ykhv=842) 9.6 GM/DL 13.0-16.8 HEMATOCRIT (BEAKER) (test mlti=860) 27.5 % 40.0-50.0 MEAN CORPUSCULAR VOLUME (BEAKER) (test itpq=047) 87.2 fL 82.0-98.0 MEAN CORPUSCULAR HEMOGLOBIN (BEAKER) (test 30.6 pg 27.0-33.0 kssr=222) MEAN CORPUSCULAR HEMOGLOBIN CONC (BEAKER) (test 35.1 GM/DL 32.0-36.0 kkkr=002) RED CELL DISTRIBUTION WIDTH (BEAKER) (test 17.0 % 10.3-14.2 qsnf=762) PLATELET COUNT (BEAKER) (test smdq=914) 180 K/CU MM 150-430 MEAN PLATELET VOLUME (BEAKER) (test royu=085) 8.3 fL 6.5-10.5 NUCLEATED RED BLOOD CELLS (BEAKER) (test 0 /100 WBC 0-0 hewp=206) NEUTROPHILS RELATIVE PERCENT (BEAKER) (test 56 % fvbe=112) LYMPHOCYTES RELATIVE PERCENT (BEAKER) (test 34 % bpim=437) MONOCYTES RELATIVE PERCENT (BEAKER) (test 7 % hjqr=734) EOSINOPHILS RELATIVE PERCENT (BEAKER) (test 2 % gksg=628) BASOPHILS RELATIVE PERCENT (BEAKER) (test 1 % dwfz=972) NEUTROPHILS ABSOLUTE COUNT (BEAKER) (test 4.66 K/ L 1.80-8.00 gzdm=668) LYMPHOCYTES ABSOLUTE COUNT (BEAKER) (test 2.82 K/ L 1.48-4.50 nsvp=523) MONOCYTES ABSOLUTE COUNT (BEAKER) (test 0.61 K/ L 0.00-1.30 tjxo=638) EOSINOPHILS ABSOLUTE COUNT (BEAKER) (test 0.19 K/ L 0.00-0.50 kikq=547) BASOPHILS ABSOLUTE COUNT (BEAKER) (test 0.04 K/ L 0.00-0.20 lwys=857) 0.00PROTHROMBIN [id number] 05:40:00 Test Item Value Reference Range Comments PROTIME (BEAKER) (test rdyx=974) 20.4 seconds 11.7-14.7 INR (BEAKER) (test mipv=139) 1.8 <=5.9 RECOMMENDED COUMADIN/WARFARIN INR THERAPY RANGESSTANDARD DOSE: 2.0 - 3.0 Includes: PROPHYLAXIS forvenous thrombosis, systemic embolization; TREATMENT for venous thrombosis and/or pulmonary embolus.HIGH RISK: Target INR is 2.5-3.5 for patients with mechanical heart valves.POCT-GLUCOSE [id number] 21:35:00 Test Item Value Reference Range Comments POC-GLUCOSE METER (BEAKER) 203 mg/dL 70-110 TESTED AT [facility] [address] [facility] (test mlox=6740) [place] [id number] CBC (HEMOGRAM ONLY)2017-01-14 17:58:00 Test Item Value Reference Range Comments WHITE BLOOD CELL COUNT (BEAKER) (test qnto=124) 6.6 K/ L 4.0-10.0 RED BLOOD CELL COUNT (BEAKER) (test xotq=429) 3.30 M/ L 4.20-5.80 HEMOGLOBIN (BEAKER) (test guaq=735) 10.2 GM/DL 13.0-16.8 HEMATOCRIT (BEAKER) (test ziuc=108) 28.3 % 40.0-50.0 MEAN CORPUSCULAR VOLUME (BEAKER) (test imqs=044) 85.9 fL 82.0-98.0 MEAN CORPUSCULAR HEMOGLOBIN (BEAKER) (test 31.0 pg 27.0-33.0 paam=034) MEAN CORPUSCULAR HEMOGLOBIN CONC (BEAKER) (test 36.1 GM/DL 32.0-36.0 fcfc=212) RED CELL DISTRIBUTION WIDTH (BEAKER) (test 16.9 % 10.3-14.2 avcu=298) PLATELET COUNT (BEAKER) (test aoxs=137) 176 K/CU MM 150-430 MEAN PLATELET VOLUME (BEAKER) (test feaa=786) 8.6 fL 6.5-10.5 NUCLEATED RED BLOOD CELLS (BEAKER) (test 0 /100 WBC 0-0 mmhw=053) 0.00POCT-GLUCOSE [id number] 17:34:00 Test Item Value Reference Range Comments POC-GLUCOSE METER (BEAKER) 310 mg/dL 70-110 TESTED AT [address] (test kbot=3399) [place] [address] CBC (HEMOGRAM ONLY)2017-01-14 14:39:00 Test Item Value Reference Range Comments WHITE BLOOD CELL COUNT (BEAKER) (test vftp=280) 5.9 K/ L 4.0-10.0 RED BLOOD CELL COUNT (BEAKER) (test zyof=655) 3.39 M/ L 4.20-5.80 HEMOGLOBIN (BEAKER) (test odfr=672) 10.7 GM/DL 13.0-16.8 HEMATOCRIT (BEAKER) (test fnbz=967) 29.4 % 40.0-50.0 MEAN CORPUSCULAR VOLUME (BEAKER) (test hhtr=183) 86.8 fL 82.0-98.0 MEAN CORPUSCULAR HEMOGLOBIN (BEAKER) (test 31.6 pg 27.0-33.0 ejxi=616) MEAN CORPUSCULAR HEMOGLOBIN CONC (BEAKER) (test 36.4 GM/DL 32.0-36.0 teic=308) RED CELL DISTRIBUTION WIDTH (BEAKER) (test 15.3 % 10.3-14.2 ufxr=047) PLATELET COUNT (BEAKER) (test aibm=708) 190 K/CU MM 150-430 MEAN PLATELET VOLUME (BEAKER) (test ctpo=093) 8.3 fL 6.5-10.5 NUCLEATED RED BLOOD CELLS (BEAKER) (test 0 /100 WBC 0-0 oqrt=413) POCT-GLUCOSE [id number] 13:02:00 Test Item Value Reference Range Comments POC-GLUCOSE METER (BEAKER) 239 mg/dL 70-110 TESTED AT [address] (test wxxc=6225) [place] [address] POCT-GLUCOSE [id number] 09:30:00 Test Item Value Reference Range Comments POC-GLUCOSE METER (BEAKER) 303 mg/dL 70-110 TESTED AT [address] (test cmbx=0050) [place] [address] POCT-GLUCOSE [id number] 05:39:00 Test Item Value Reference Range Comments POC-GLUCOSE METER (BEAKER) 281 mg/dL 70-110 TESTED AT [facility] [address] [facility] (test xjft=3963) [place] [address] [id number] 04:27:00 Test Item Value Reference Range Comments FERRITIN (BEAKER) (test rdez=978) 40 ng/mL 5-275 Effective 10/06/2014: Reference Range ChangeNew: Male 5-275 Previous: Male 22-322 Female 5-275 Female 10-291LACTATE DEHYDROGENASE (LDH) 2017-01-14 04:17:00 Test Item Value Reference Range Comments LACTATE DEHYDROGENASE (BEAKER) 253 U/L 125-220 Specimen slightly hemolyzed (test vhqf=035) [id number] 04:14:00 Test Item Value Reference Range Comments MAGNESIUM (BEAKER) (test 1.8 mg/dL 1.6-2.6 Specimen slightly hemolyzed uabq=316) BASIC METABOLIC [id number] 04:14:00 Test Item Value Reference Range Comments SODIUM (BEAKER) (test 133 meq/L 136-145 oiik=430) POTASSIUM (BEAKER) (test 4.5 meq/L 3.5-5.1 Specimen slightly vdlj=196) hemolyzed CHLORIDE (BEAKER) (test 102 meq/L 98-107 jdwl=497) CO2 (BEAKER) (test 23 meq/L 22-29 fhea=313) BLOOD UREA NITROGEN 37 mg/dL 7-21 (BEAKER) (test wxsw=940) CREATININE (BEAKER) (test 1.21 mg/dL 0.57-1.25 Specimen slightly rrfd=698) hemolyzed GLUCOSE RANDOM (BEAKER) 342 mg/dL 70-105 (test nzhb=048) CALCIUM (BEAKER) (test 8.4 mg/dL 8.4-10.2 eiko=253) EGFR (BEAKER) (test 62 mL/min/1.73 sq m ESTIMATED GFR IS NOT qjmp=6093) ACCURATE CREATININE CLEARANCE IN PREDICTING GLOMERULAR FILTRATION RATE. ESTIMATED GFR IS NOT APPLICABLE FOR DIALYSIS PATIENTS. PROTHROMBIN [id number] 04:07:00 Test Item Value Reference Range Comments PROTIME (BEAKER) (test qewo=898) 23.0 seconds 11.7-14.7 INR (BEAKER) (test xlbr=644) 2.0 <=5.9 RECOMMENDED COUMADIN/WARFARIN INR THERAPY RANGESSTANDARD DOSE: 2.0 - 3.0 Includes: PROPHYLAXIS forvenous thrombosis, systemic embolization; TREATMENT for venous thrombosis and/or pulmonary embolus.HIGH RISK: Target INR is 2.5-3.5 for patients with mechanical heart valves.IRON, TIBC, % SAT. (WITHOUT FERRITIN) 2017-01-14 04:06:00 Test Item Value Reference Range Comments IRON (BEAKER) (test qtzc=334) 79 ug/dL 40-160 TOTAL IRON BINDING CAPACITY (BEAKER) (test 303 ug/dL 250-450 qtcd=283) IRON % SATURATION (2) (BEAKER) (test uofp=4342) 26 % 20-55 CBC (HEMOGRAM ONLY)2017-01-14 03:51:00 Test Item Value Reference Range Comments WHITE BLOOD CELL COUNT (BEAKER) (test maat=874) 7.0 K/ L 4.0-10.0 RED BLOOD CELL COUNT (BEAKER) (test nyxn=151) 3.41 M/ L 4.20-5.80 HEMOGLOBIN (BEAKER) (test sxme=970) 10.2 GM/DL 13.0-16.8 HEMATOCRIT (BEAKER) (test mrqa=642) 29.4 % 40.0-50.0 MEAN CORPUSCULAR VOLUME (BEAKER) (test jmgp=993) 86.3 fL 82.0-98.0 MEAN CORPUSCULAR HEMOGLOBIN (BEAKER) (test 30.0 pg 27.0-33.0 iycp=573) MEAN CORPUSCULAR HEMOGLOBIN CONC (BEAKER) (test 34.8 GM/DL 32.0-36.0 kykq=658) RED CELL DISTRIBUTION WIDTH (BEAKER) (test 17.1 % 10.3-14.2 zipz=309) PLATELET COUNT (BEAKER) (test jobh=975) 184 K/CU MM 150-430 MEAN PLATELET VOLUME (BEAKER) (test qbty=866) 8.5 fL 6.5-10.5 NUCLEATED RED BLOOD CELLS (BEAKER) (test 0 /100 WBC 0-0 ismr=435) 0.00POCT-GLUCOSE [id number] 21:57:00 Test Item Value Reference Range Comments POC-GLUCOSE METER (BEAKER) 222 mg/dL 70-110 TESTED AT [facility] [address] LÓPEZ (test xycl=[id number]) [facility] [id number] CBC (HEMOGRAM ONLY)2017-01-13 18:08:00 Test Item Value Reference Range Comments WHITE BLOOD CELL COUNT (BEAKER) (test iwma=615) 8.4 K/ L 4.0-10.0 RED BLOOD CELL COUNT (BEAKER) (test ihzr=397) 3.67 M/ L 4.20-5.80 HEMOGLOBIN (BEAKER) (test gyno=036) 11.1 GM/DL 13.0-16.8 HEMATOCRIT (BEAKER) (test yqbi=091) 31.7 % 40.0-50.0 MEAN CORPUSCULAR VOLUME (BEAKER) (test eyht=250) 86.4 fL 82.0-98.0 MEAN CORPUSCULAR HEMOGLOBIN (BEAKER) (test 30.4 pg 27.0-33.0 nsia=176) MEAN CORPUSCULAR HEMOGLOBIN CONC (BEAKER) (test 35.2 GM/DL 32.0-36.0 oxux=899) RED CELL DISTRIBUTION WIDTH (BEAKER) (test 17.0 % 10.3-14.2 pocj=675) PLATELET COUNT (BEAKER) (test ggzv=794) 203 K/CU MM 150-430 MEAN PLATELET VOLUME (BEAKER) (test usqr=126) 8.4 fL 6.5-10.5 NUCLEATED RED BLOOD CELLS (BEAKER) (test 0 /100 WBC 0-0 spvz=777) 0.00POCT-GLUCOSE [id number] 17:32:00 Test Item Value Reference Range Comments POC-GLUCOSE METER (BEAKER) 347 mg/dL 70-110 Notified KENZIE BARCLAY/TESTED AT [facility] (test vtve=3778) [address] [facility] [id number] B-TYPE NATRIURETIC FACTOR (BNP)2017-01-13 15:39:00 Test Item Value Reference Range Comments B-TYPE NATRIURETIC PEPTIDE (BEAKER) (test jwrm=055) 53 pg/mL 0-100 LACTATE DEHYDROGENASE (LDH)2017-01-13 15:37:00 Test Item Value Reference Range Comments LACTATE DEHYDROGENASE (BEAKER) (test urpc=624) 290 U/L 125-220 [id number] 13:55:00 Test Item Value Reference Range Comments LIPASE (BEAKER) (test pgrd=893) 26 U/L 8-78 BASIC METABOLIC [id number] 13:55:00 Test Item Value Reference Range Comments SODIUM (BEAKER) (test 134 meq/L 136-145 ofxc=615) POTASSIUM (BEAKER) (test 4.5 meq/L 3.5-5.1 ndgh=914) CHLORIDE (BEAKER) (test 101 meq/L 98-107 sqqh=410) CO2 (BEAKER) (test 25 meq/L 22-29 rtnl=083) BLOOD UREA NITROGEN 37 mg/dL 7-21 (BEAKER) (test pddb=431) CREATININE (BEAKER) (test 1.28 mg/dL 0.57-1.25 ijha=371) GLUCOSE RANDOM (BEAKER) 320 mg/dL 70-105 (test bozl=136) CALCIUM (BEAKER) (test 9.0 mg/dL 8.4-10.2 iwow=890) EGFR (BEAKER) (test 59 mL/min/1.73 sq m ESTIMATED GFR IS NOT ikfu=5563) ACCURATE CREATININE CLEARANCE IN PREDICTING GLOMERULAR FILTRATION RATE. ESTIMATED GFR IS NOT APPLICABLE FOR DIALYSIS PATIENTS. HEPATIC FUNCTION [id number] 13:55:00 Test Item Value Reference Range Comments TOTAL PROTEIN (BEAKER) (test jspj=096) 6.4 gm/dL 6.0-8.3 ALBUMIN (BEAKER) (test hjae=8515) 3.4 g/dL 3.5-5.0 BILIRUBIN TOTAL (BEAKER) (test rjdg=207) 0.5 mg/dL 0.2-1.2 BILIRUBIN DIRECT (BEAKER) (test mxgk=164) 0.2 mg/dL 0.1-0.5 ALKALINE PHOSPHATASE (BEAKER) (test xysi=667) 117 U/L 40-150 AST (SGOT) (BEAKER) (test qemm=805) 31 U/L 5-34 ALT (SGPT) (BEAKER) (test aivn=272) 41 U/L 6-55 CBC W/PLT COUNT & AUTO [id number] 13:43:00 Test Item Value Reference Range Comments WHITE BLOOD CELL COUNT (BEAKER) (test vvec=882) 9.4 K/ L 4.0-10.0 RED BLOOD CELL COUNT (BEAKER) (test awox=492) 4.01 M/ L 4.20-5.80 HEMOGLOBIN (BEAKER) (test prpo=827) 11.9 GM/DL 13.0-16.8 HEMATOCRIT (BEAKER) (test pylu=540) 34.4 % 40.0-50.0 MEAN CORPUSCULAR VOLUME (BEAKER) (test lrlr=627) 85.8 fL 82.0-98.0 MEAN CORPUSCULAR HEMOGLOBIN (BEAKER) (test 29.6 pg 27.0-33.0 blib=368) MEAN CORPUSCULAR HEMOGLOBIN CONC (BEAKER) (test 34.5 GM/DL 32.0-36.0 pelw=524) RED CELL DISTRIBUTION WIDTH (BEAKER) (test 16.9 % 10.3-14.2 awvl=235) PLATELET COUNT (BEAKER) (test zrcb=727) 215 K/CU MM 150-430 MEAN PLATELET VOLUME (BEAKER) (test vpqm=704) 8.2 fL 6.5-10.5 NUCLEATED RED BLOOD CELLS (BEAKER) (test 0 /100 WBC 0-0 ggcv=529) NEUTROPHILS RELATIVE PERCENT (BEAKER) (test 66 % vukv=916) LYMPHOCYTES RELATIVE PERCENT (BEAKER) (test 23 % vrtt=553) MONOCYTES RELATIVE PERCENT (BEAKER) (test 8 % onkj=528) EOSINOPHILS RELATIVE PERCENT (BEAKER) (test 2 % kerq=175) BASOPHILS RELATIVE PERCENT (BEAKER) (test 1 % jpmu=060) NEUTROPHILS ABSOLUTE COUNT (BEAKER) (test 6.20 K/ L 1.80-8.00 oeum=514) LYMPHOCYTES ABSOLUTE COUNT (BEAKER) (test 2.15 K/ L 1.48-4.50 gboa=180) MONOCYTES ABSOLUTE COUNT (BEAKER) (test 0.74 K/ L 0.00-1.30 nhpb=359) EOSINOPHILS ABSOLUTE COUNT (BEAKER) (test 0.21 K/ L 0.00-0.50 rgyb=165) BASOPHILS ABSOLUTE COUNT (BEAKER) (test 0.06 K/ L 0.00-0.20 gfws=735) 0.00PT/[id number] 13:40:00 Test Item Value Reference Range Comments PROTIME (BEAKER) (test bslm=411) 21.9 seconds 11.7-14.7 INR (BEAKER) (test sjme=898) 1.9 <=5.9 PARTIAL THROMBOPLASTIN TIME (BEAKER) (test 31.4 seconds 22.5-36.0 ywle=848) RECOMMENDED COUMADIN/WARFARIN INR THERAPY RANGESSTANDARD DOSE: 2.0 - 3.0 Includes: PROPHYLAXIS forvenous thrombosis, systemic embolization; TREATMENT for venous thrombosis and/or pulmonary embolus.HIGH RISK: Target INR is 2.5-3.5 for patients with mechanical heart valves.
[2018-09-11] MEDS ORDERED: ONDANSETRON 4 MG/2 ML VIAL ONE (11:52)
[2018-09-11] MEDS ORDERED: MECLIZINE HCL 12.5 MG TAB ONE (11:52)
[2018-09-11] MEDS ORDERED: DIAZEPAM 10 MG/2 ML INJ SYRINGE ONE ×2 (11:53→13:24)
[2018-09-11 11:57] LABS: Protime INR 1.52
[2018-09-11 11:59] LABS: Absolute Lymphocytes (CBC) 1.2 K/uL (0.7-4.9); Absolute Monocytes 0.4 K/uL (0.1-1.3); Absolute Neutrophil 5.3 K/uL (1.8-8.0); Basophils % 0.7 % (0-1.3); Hematocrit 40.4 % (39.6-49.0); Lymphocytes % 16.6 % (15.3-44.8); MCH 31.5 pg (27.0-35.0); MCV 88.3 fL (80-100); MPV 8.5 fL (7.6-11.3); RBC Red Blood Cell Count 4.57 M/uL (4.33-5.43)
[2018-09-11 12:14] LABS: ALT/SGPT 64 U/L (12-78); AST/SGOT 39 U/L (15-37); Albumin 3.2 g/dL (3.4-5.0); Alkaline Phosphatase 120 U/L (45-117); BUN Blood Urea Nitrogen 29 mg/dL (7-18); Bicarbonate 28 mmol/L (21-32); Bilirubin Direct 0.3 mg/dL (0-0.2); Bilirubin Total 0.6 mg/dL (0.2-1.0); Glucose Level 157 mg/dL (74-106); Magnesium 2.3 mg/dL (1.8-2.4); NT PRO-BNP 913 pg/mL (<125); Potassium 4.8 mmol/L (3.5-5.1); Protein, Total 7.3 g/dL (6.4-8.2); Sodium Level 141 mmol/L (136-145); Troponin (Emerg Dept Use Only) < 0.02 ng/mL (0.0-0.045)
[2018-09-11] MEDS ORDERED: NA CHLORIDE 0.9% 100 ML IV ONE (12:40)
[2018-09-11] MEDS ORDERED: METOCLOPRAMIDE 10 MG/2mL INJ ONE (12:40)
--- NOTE | 2018-09-11 12:45 | RAD REPORT ---
EXAM DESCRIPTION: CT - Head angio - 09/11/2018 12:24 pm CLINICAL HISTORY: dizziness Headache COMPARISON: HEAD BRAIN W O CONTRAST dated 08/28/2015; HEAD BRAIN W O CONTRAST dated 10/05/2014 TECHNIQUE: CT head without contrast CT angiography of the head was performed with MIPs. All CT scans are performed using dose optimization technique as appropriate and may include automated exposure control or mA/KV adjustment according to patient size. FINDINGS: No acute hemorrhage, hydrocephalus or midline shift. No areas of brain edema seen. No evidence of aneurysm is detected. No flow-limiting stenosis or vascular malformation identified. Antegrade flow is seen in the vertebral arteries. The vertebral arteries are codominant. The right ve rtebral artery is calcified. The visualized dural venous sinuses are patent. IMPRESSION: No significant flow abnormality is detected. No acute intracranial abnormality.
--- NOTE | 2018-09-11 12:58 | RAD REPORT ---
EXAM DESCRIPTION: Kanchan Single View09/11/2018 12:27 pm CLINICAL HISTORY: Hypertension COMPARISON: 2016 FINDINGS: The lungs appear clear of acute infiltrate. The heart is mildly enlarged. Pacemaker leads are in place. Postsurgical changes involve the chest IMPRESSION: No acute abnormalities displayed
--- NOTE | 2018-09-11 13:28 | EKG ---
Test Date: 2018-09-11 Test Time: 11:54:37 [employer]: HUBER MEASUREMENT RESULTS: Intervals: Rate: 60 NE: QRSD: 190 QT: 536 QTc: 536 Wilson: P: 82 NE: QRS: 268 T: 96 INTERPRETIVE STATEMENTS: Atrial-Ventricular Dual-Paced rhythm Abnormal ECG Compared to ECG 11/06/2016 16:30:02 no significant change from previous ECG Electronically Signed On 09-11-18 13:28:32 CDT by Min Gotti
--- NOTE | 2018-09-11 15:44 | ER ---
Nurse's Notes [facility] Name: Jose Lizama Age: 58 yrs Sex: Male : 1960 Arrival Date: 09/11/2018 Time: 11:33 Bed 3 Private MD: Diagnosis: Vertiginous syndromes in diseases classified elsewhere;Nausea and vomiting-Intractable Presentation: 09/11 11:34 Presenting complaint: EMS states: N/V and dizziness that started at 0930 today. Denies hb pain/diarrhea/fever. Hx DM, HTN, CHF, pacemaker, LVAD. BP 150/105, BGL 140, 20g LEFT AC, Zofran 4mg IVP administered CARBONATION TESTER. Transition of care: patient was not received from another setting of care. Onset of symptoms was September 11, 2018 at 09:30. Risk Assessment: Do you want to hurt yourself or someone else? Patient reports no desire to harm self or others. Care prior to arrival: Medication(s) given: zofran 4 mg, IV initiated. 20 GA, in the left antecubital area, Glucose check: 140. 11:34 Method Of Arrival: EMS: [facility] hb 11:34 Acuity: ANIL 2 hb 11:40 Initial Sepsis Screen: Does the patient meet any 2 criteria? No. Patient's initial sv sepsis screen is negative. Does the patient have a suspected source of infection? No. Patient's initial sepsis screen is negative. Historical: - Allergies: 11:39 No Known Drug Allergies; hb - Home Meds: 11:39 aspirin 81 mg Oral chew 1 tab once daily [Active]; atorvastatin 20 mg Oral tab hb [Active]; digoxin 125 mcg Oral tab 1 tab once daily [Active]; eplerenone 25 mg Oral tab 1 tab once daily [Active]; ferrous sulfate 325 mg (65 mg iron) Oral TbEC 325 mg three times a day [Active]; ivabradine 5mg Oral 2 times per day [Active]; levothyroxine 50 mcg tab 1 tab once daily [Active]; losartan 50 mg Oral tab 1 tab once daily [Active]; magnesium oxide 400 mg Oral tab 400 mg daily [Active]; tamsulosin 0.4 mg Oral cp24 [Active]; Warfarin 7 mg Oral 1 tab once daily [Active]; Zoloft 50 mg Oral tab 1 tab Tues, Thurs, Sat, Sun [Active]; Zoloft 75 mg Oral Mon, Wed, Fri [Active]; Zolpidem Tartrate 1 mg Oral 1 tab once daily [Active]; 12:30 carvedilol 37.5 mg Oral tab 1 tab 2 times per day [Active]; Novolog 100 unit/mL Sub-Q sv soln 10 unit twice a day [Active]; docusate sodium 100 mg Oral cap [Active]; folic acid 1 mg Oral tab 1 tab once daily [Active]; Lyrica 150 mg Oral [Active]; Lantus 100 unit/mL Sub-Q soln 30 unit [Active]; Protonix 40 mg Oral TbEC 1 tab once daily [Active]; - PMHx: 11:39 CHF; Diabetes - NIDDM; Hypertension; hb - PSHx: 11:39 LVAD; pacemaker insertion; neck surgery; hb - Immunization history:: Adult Immunizations up to date. - Social history:: Smoking status: Patient/guardian denies using tobacco. - Ebola Screening: : No symptoms or risks identified at this time. Screenin:40 Abuse screen: Denies threats or abuse. Denies injuries from another. Nutritional sv screening: No deficits noted. Tuberculosis screening: No symptoms or risk factors identified. Fall Risk No fall in past 12 months (0 pts). No secondary diagnosis (0 pts). IV access (20 points). Ambulatory Aid- None/Bed Rest/Nurse Assist (0 pts). Gait- Normal/Bed Rest/Wheelchair (0 pts) Mental Status- Oriented to own ability (0 pts). Total Bowers Fall Scale indicates No Risk (0-24 pts). Assessment: 11:40 General: Appears in no apparent distress. uncomfortable, obese, well developed, sv Behavior is cooperative, appropriate for age, anxious. Pain: Denies pain. Neuro: Level of Consciousness is awake, alert, obeys commands, Oriented to person, place, time, situation, Moves all extremities. Speech is normal. Neuro: Nystagmus noted. Reports dizziness. Cardiovascular: Patient's skin is warm and dry. Pulses are palpable in right radial artery and left radial artery Rhythm is paced by LVAD. Cardiovascular: Chest pain is denied. Respiratory: Airway is patent Respiratory effort is even, unlabored, Respiratory pattern is regular, symmetrical, Breath sounds are clear bilaterally. Denies shortness of breath. GI: Abdomen is obese, Abd is soft and non tender X 4 quads. Derm: Skin is normal. Musculoskeletal: Range of motion: intact in all extremities. 12:35 Reassessment: Patient appears in no apparent distress at this time. No changes from sv previously documented assessment. Patient and/or family updated on plan of care and expected duration. Pain level reassessed. Patient is alert, oriented x 3, equal unlabored respirations, skin warm/dry/pink. GI: Reports nausea, Informed Dr Ugalde, medication order received. 13:08 Reassessment: Pt stated he wasn't ready for the Meclizine at this time. sv 13:14 Reassessment: Patient appears in no apparent distress at this time. Patient and/or sv family updated on plan of care and expected duration. Pain level reassessed. Patient is alert, oriented x 3, equal unlabored respirations, skin warm/dry/pink. Pt reports mild improvement of symptoms. Dr Ugalde at bedside to discuss transfer. 15:15 Reassessment: Patient appears in no apparent distress at this time. No changes from sv previously documented assessment. Patient and/or family updated on plan of care and expected duration. Pain level reassessed. Patient is alert, oriented x 3, equal unlabored respirations, skin warm/dry/pink. 15:17 Reassessment: Report given to EMS. sv Vital Signs: 11:34 BP 140 / 101; Pulse 67; Resp 16; Temp 98.2; Pulse Ox 97% on R/A; Pain 0/10; hb 12:30 BP 143 / 96; Pulse 60; Resp 15; Pulse Ox 99% on R/A; sv 13:30 BP 122 / 94; Pulse 60; Resp 16; Pulse Ox 96% on R/A; sv 14:30 BP 130 / 86; Pulse 60 MON; Resp 16; Pulse Ox 96% on R/A; sv 14:30 Paced sv ED Course: 11:33 Patient arrived in ED. hb 11:37 Triage completed. hb 11:38 Patrick Ugalde MD is Attending Physician. kdr 11:39 Arm band placed on. hb 11:40 Patient has correct armband on for positive identification. Bed in low position. Side sv rails up X2. compliance monitor on. Pulse ox on. NIBP on. Door closed. 11:40 Maintain EMS IV. Dressing intact. Good blood return noted. Site clean \T\ dry. Gauge \T\ sv site: 20G L Ac. 11:40 Initial lab(s) drawn, by me, sent to lab. sv 11:41 Pat Joy, RN is Primary Nurse. sv 11:59 EKG done, by facility maintenance technician. reviewed by Patrick Ugalde MD. dt2 12:[address] via stretcher. sv 12:15 Radiology exam delayed due to PT IN CT. jb2 12:24 XRAY Chest (1 view) In Process Unspecified. EDMS 12:24 Head angio In Process Unspecified. EDMS 12:24 X-ray completed. Patient tolerated procedure well. Patient moved back from radiology. jb2 13:05 Basic Metabolic Panel Sent. sv 14:46 No provider procedures requiring assistance completed. Patient transferred, IV remains sg in place. intact, No redness/swelling at site. 14:57 transfer transportation to receiving facility. sv Administered Medications: 11:48 Drug: Zofran 4 mg Route: IVP; Site: left antecubital; sv 13:02 Follow up: Response: No adverse reaction sv 11:50 Drug: Valium 5 mg Route: IVP; Site: left antecubital; sv 13:01 Follow up: Response: No adverse reaction sv 12:40 Drug: Reglan 10 mg Route: IVP; Site: left antecubital; sv 12:55 Follow up: Response: No adverse reaction sv 13:26 Drug: Valium 5 mg Route: IVP; Site: left antecubital; sv 13:45 Follow up: Response: No adverse reaction sv 15:23 Not Given (Patient Refused): Meclizine 25 mg PO once sv Outcome: 14:45 Transferred by ground EMS to [facility], Transfer form completed. sg 14:45 Condition: stable 14:45 Instructed on the need for transfer, safety practices. 15:30 Patient left the ED. sv 15:43 ER care complete, transfer ordered by . letitia Signatures: Dispatcher [employer] EDMS Pat Joy RN RN sv Gay, Steven, RN RN sg Rittger, Kevin, MD MD kdr Buechter, Jesse jb2 Aubree Sharma RN RN Michelle Pina dt2 Corrections: (The following items were deleted from the chart) 11:40 11:34 Presenting complaint: EMS states: N/V and dizziness that started at 0930 today. hb Denies pain/diarrhea/fever. Hx DM, LVAD. BP 150/105, BGL 140, 20g LEFT AC, Zofran 4mg IVP administered CARBONATION TESTER. hb 12:30 11:39 Home Meds: Bumex Oral 2 mg; hb sv 12:30 11:39 Home Meds: carvedilol 12.5 mg Oral tab 1 tab 2 times per day; hb sv 12:30 11:39 Home Meds: Neurontin 300 mg Oral cap 1 cap 3 times per day; hb sv 12:30 11:39 Home Meds: Novolog 100 unit/mL Sub-Q soln 15 unit twice a day; hb sv 12:30 11:39 Home Meds: omeprazole 20 mg Oral cpDR 1 cap 2 times per day; hb sv 15:43 15:43 Patient left the ED. sv sv
--- NOTE | 2018-09-11 15:44 | EDPHYS ---
Physician Documentation [facility] Name: Jose Lizama Age: 58 yrs Sex: Male : 1960 Arrival Date: 09/11/2018 Time: 11:33 Bed 3 Private MD: ED Physician Patrick Ugalde Historical: - Allergies: 09/11 11:39 No Known Drug Allergies; hb - Home Meds: 11:39 aspirin 81 mg Oral chew 1 tab once daily [Active]; atorvastatin 20 mg Oral tab hb [Active]; digoxin 125 mcg Oral tab 1 tab once daily [Active]; eplerenone 25 mg Oral tab 1 tab once daily [Active]; ferrous sulfate 325 mg (65 mg iron) Oral TbEC 325 mg three times a day [Active]; ivabradine 5mg Oral 2 times per day [Active]; levothyroxine 50 mcg tab 1 tab once daily [Active]; losartan 50 mg Oral tab 1 tab once daily [Active]; magnesium oxide 400 mg Oral tab 400 mg daily [Active]; tamsulosin 0.4 mg Oral cp24 [Active]; Warfarin 7 mg Oral 1 tab once daily [Active]; Zoloft 50 mg Oral tab 1 tab Tues, Th, Sat, Sun [Active]; Zoloft 75 mg Oral Mon, Wed, Fri [Active]; Zolpidem Tartrate 1 mg Oral 1 tab once daily [Active]; 12:30 carvedilol 37.5 mg Oral tab 1 tab 2 times per day [Active]; Novolog 100 unit/mL Sub-Q sv soln 10 unit twice a day [Active]; docusate sodium 100 mg Oral cap [Active]; folic acid 1 mg Oral tab 1 tab once daily [Active]; Lyrica 150 mg Oral [Active]; Lantus 100 unit/mL Sub-Q soln 30 unit [Active]; Protonix 40 mg Oral TbEC 1 tab once daily [Active]; - PMHx: 11:39 CHF; Diabetes - NIDDM; Hypertension; hb - PSHx: 11:39 LVAD; pacemaker insertion; neck surgery; hb - Immunization history:: Adult Immunizations up to date. - Social history:: Smoking status: Patient/guardian denies using tobacco. - Ebola Screening: : No symptoms or risks identified at this time. Vital Signs: 11:34 BP 140 / 101; Pulse 67; Resp 16; Temp 98.2; Pulse Ox 97% on R/A; Pain 0/10; hb 12:30 BP 143 / 96; Pulse 60; Resp 15; Pulse Ox 99% on R/A; sv 13:30 BP 122 / 94; Pulse 60; Resp 16; Pulse Ox 96% on R/A; sv 14:30 BP 130 / 86; Pulse 60 MON; Resp 16; Pulse Ox 96% on R/A; sv 14:30 Paced sv MDM: 15:43 Patient medically screened. kdr 09/11 11:40 Order name: Basic Metabolic Panel kdr 09/11 11:40 Order name: CBC with Diff; Complete Time: 12:56 kdr 09/11 11:40 Order name: LFT's; Complete Time: 12:56 kdr 09/11 11:40 Order name: Magnesium; Complete Time: 12:56 kdr 09/11 11:40 Order name: NT PRO-BNP; Complete Time: 12:56 kdr 09/11 11:40 Order name: PT-INR; Complete Time: 12:56 kdr 09/11 11:40 Order name: Troponin (emerg Dept Use Only); Complete Time: 12:56 kdr 09/11 11:40 Order name: XRAY Chest (1 view); Complete Time: 13:07 kdr 09/11 11:40 Order name: Basic Metabolic Panel; Complete Time: 12:56 EDMS 09/11 11:46 Order name: Head angio; Complete Time: 12:56 EDMS 09/11 11:40 Order name: EKG; Complete Time: 11:40 kdr 09/11 11:40 Order name: Cardiac monitoring; Complete Time: 11:41 kdr 09/11 11:40 Order name: EKG - Nurse/Tech; Complete Time: 11:41 kdr 09/11 11:40 Order name: IV Saline Lock; Complete Time: 11:41 kdr 09/11 11:40 Order name: Labs collected and sent; Complete Time: 11:41 kdr 09/11 11:40 Order name: O2 Per Protocol; Complete Time: 11:41 kdr 09/11 11:40 Order name: O2 Sat Monitoring; Complete Time: 11:41 kdr Administered Medications: 11:48 Drug: Zofran 4 mg Route: IVP; Site: left antecubital; sv 13:02 Follow up: Response: No adverse reaction sv 11:50 Drug: Valium 5 mg Route: IVP; Site: left antecubital; sv 13:01 Follow up: Response: No adverse reaction sv 12:40 Drug: Reglan 10 mg Route: IVP; Site: left antecubital; sv 12:55 Follow up: Response: No adverse reaction sv 13:26 Drug: Valium 5 mg Route: IVP; Site: left antecubital; sv 13:45 Follow up: Response: No adverse reaction sv 15:23 Not Given (Patient Refused): Meclizine 25 mg PO once sv Disposition: 09/11/18 15:43 Transfer ordered to [facility]. Diagnosis are Vertiginous syndromes in diseases classified elsewhere, Nausea and vomiting - Intractable. - Reason for transfer: Higher level of care. - Accepting physician is . - Condition is Fair. - Problem is new. - Symptoms have improved. Addendum: 09/22/2018 22:21 Addendum: CC: N/V/ Dizziness HPI: The patient states that at about 09:30 today he began k dr to have n/v and was dizzy. He had not had this before and he denies any other associated s/s. The n/v has been intermittent and persistent throughout the day. . Addendum: ROS: Const: No fever, chills or weight loss, Eyes: no visual changes or c/o, Neck: no pain or injury, CV: no CP or palpitations, Resp: no SOB, cough or congestion, Abd: no diarrhea or pain, he has had N/V Back: no pain or injury, : no pain or bleeding, MS/Ext: no pain, injury, swelling, tingling, Skin: no lacerations, pain, injury, skin turgor good, Neuro: CN grossly intact and no other deficits other than dizziness Psych: Appropriate for age, Allergy/Immunology: no rashes or other s/s, Endo: no evidence of polyuria, polydipsia, temperature control or other s/s . Addendum: Exam: Const: WDWN WM in NAD, Head/Face: no injury, pain or deformity, Eyes: PERRLA, ENT: no pain, injury or bleeding, Neck: no pain, injury or deformity, full ROM, Chest/Axilla: No pain, injury or deformity, CV: no rubs, gallops, murmurs, regular rate, Resp: CTAB, regular rate, Abd/GI: soft, NT, BS present in all quads and normal, Back: no injury or deformity, full ROM, MS/Extremity: no injury or deformity, FROM, distal pulses good and equal, Skin: no rashes, ecchymosis skin turgor good, Neuro: CN grossly intact, no other neuro deficits, Psych: appropriate for age, no SI/HI, no depression . 22:22 Addendum: MDM (Transfer) All VS and nursing notes reviewed. The patient and/or family k dr was counseled on the results and need for transfer. The patient was transferred in stable condition. They were happy with the care they received and the plan for transfer for further evaluation and treatment. . Signatures: Dispatcher [employer] EDPat Esposito RN RN Patrick Ugalde MD MD [facility] Aubree Sharma RN RN Corrections: (The following items were deleted from the chart) 09/11 12:10 11:41 Head Brain Wo [email or web address] ordered. [facility] EDMS 12:30 11:39 Home Meds: Bumex Oral 2 mg; hb sv 12:30 11:39 Home Meds: carvedilol 12.5 mg Oral tab 1 tab 2 times per day; hb sv 12:30 11:39 Home Meds: Neurontin 300 mg Oral cap 1 cap 3 times per day; hb sv 12:30 11:39 Home Meds: Novolog 100 unit/mL Sub-Q soln 15 unit twice a day; hb sv 12:30 11:39 Home Meds: omeprazole 20 mg Oral cpDR 1 cap 2 times per day; hb sv 15:43 15:43 09/11/2018 15:43 Transfer ordered to [facility]. Diagnosis is sv Vertiginous syndromes in diseases classified elsewhere; Nausea and vomiting - Intractable. Reason for transfer: Higher level of care. Accepting physician is . Condition is Fair. Problem is new. Symptoms have improved. kdr
[2018-09-11 15:48] VITALS: TEMP 98.2
[2018-09-11 15:51] VITALS: O2SAT 96
[2018-09-11 15:52] VITALS: BP 130/86
== END 2018-09-11 15:43 | disposition short-term general hospital (02) ==
LOC: ER 11:31
DX: H81.90 Unspecified disorder of vestibular function, unspecified ear (principal); I10 Essential (primary) hypertension; E11.9 Type 2 diabetes mellitus without complications; I50.9 Heart failure, unspecified; Z95.0 Presence of cardiac pacemaker; Z79.01 Long term (current) use of anticoagulants; Z79.82 Long term (current) use of aspirin; Z79.4 Long term (current) use of insulin
CPT/HCPCS: 36415; 70496; 71045; 80048; 80076; 83735; 83880; 84484; 85025; 85610; 93005; 96374; 96375; 99285; J2405; J2765; J3360 ×2; Q9967

== ENCOUNTER 2019-11-13 10:19 | Emergency (ER) | payer OTHER ==
--- OUTSIDE RECORDS SUMMARY | 2019-11-13 10:30 | XMS REPORT ---
:1960 Author Organization [facility] Address [address] [place] [address] Care Team Providers Name Role Phone DEION WOOD Unavailable Unavailable SHAYNE ELY Unavailable Unavailable GARY BROWN Unavailable Unavailable NO NESS Unavailable Unavailable BRAIN BULL Unavailable Unavailable DEION WOOD Unavailable Unavailable JESSICA CARMONA Unavailable Unavailable BRIDGER, PAIGE BERRY Unavailable Unavailable Problems This patient has no known problems. Allergies, Adverse Reactions, Alerts This patient has no known allergies or adverse reactions. Medications This patient has no known medications. Results Test Description Test Time Test Comments Text Results Atomic Results Result Comments PROTHROMBIN TIME/INR 2019-07-25 10:09:00 Test Item Value Reference Range Comments PROTIME (BEAKER) (test wumd=087) 32.8 seconds 11.9-14.2 INR (BEAKER) (test ikhf=320) 3.4 <=5.9 Effective 04/16/2019: PT Reference Range ChangeNew: 11.9-14.2 Previous: 11.7- 14.7RECOMMENDED COUMADIN/WARFARIN INR THERAPY RANGESSTANDARD DOSE: 2.0-3.0 Includes: PROPHYLAXIS for venous thrombosis, systemic embolization; TREATMENT for venous thrombosis and/or pulmonary embolus.HIGH RISK: Target INR is2.5-3.5 for patients wiht mechanical heart valves.LACTATE DEHYDROGENASE (LDH)2019-07-25 10:08:00 Test Item Value Reference Range Comments LACTATE DEHYDROGENASE (BEAKER) 310 U/L 125-220 Specimen slightly hemolyzed (test jsim=814) [id number] 10:07:00 Test Item Value Reference Range Comments MAGNESIUM (BEAKER) (test 1.8 mg/dL 1.6-2.6 Specimen slightly hemolyzed gzgu=987) BASIC METABOLIC [id number] 10:07:00 Test Item Value Reference Range Comments SODIUM (BEAKER) (test 140 meq/L 136-145 axud=404) POTASSIUM (BEAKER) (test 4.7 meq/L 3.5-5.1 Specimen slightly tjcx=512) hemolyzed CHLORIDE (BEAKER) (test 106 meq/L 98-107 jphf=077) CO2 (BEAKER) (test 28 meq/L 22-29 kmxs=834) BLOOD UREA NITROGEN 40 mg/dL 7-21 (BEAKER) (test kfgv=564) CREATININE (BEAKER) (test 1.28 mg/dL 0.57-1.25 Specimen slightly twzb=933) hemolyzed GLUCOSE RANDOM (BEAKER) 171 mg/dL 70-105 (test vbld=981) CALCIUM (BEAKER) (test 8.7 mg/dL 8.4-10.2 qggj=948) EGFR (BEAKER) (test 58 mL/min/1.73 sq m ESTIMATED GFR IS NOT rqpb=8377) ACCURATE CREATININE CLEARANCE IN PREDICTING GLOMERULAR FILTRATION RATE. ESTIMATED GFR IS NOT APPLICABLE FOR DIALYSIS PATIENTS. LIPID [id number] 10:07:00 Test Item Value Reference Range Comments TRIGLYCERIDES (BEAKER) (test 173 mg/dL Specimen slightly hemolyzed owcy=700) CHOLESTEROL (BEAKER) (test 152 mg/dL Specimen slightly hemolyzed othb=056) HDL CHOLESTEROL (BEAKER) (test 32 mg/dL ywqu=095) LDL CHOLESTEROL CALCULATED 85 mg/dL (BEAKER) (test fikr=598) Triglyceride Reference Range: Low Risk <150 Borderline 150- 199 High Risk 200-499 Very High Risk >=500Cholesterol Reference Range: Low Risk <200 Borderline 200-239 High Risk > 240HDL Cholesterol Reference Range: Low Risk >=60 High Risk <40LDL Cholesterol Reference Range: Optimal <100 Near Optimal 100-129 Borderline 130-159 High 160-189 Very High >=190HEPATIC FUNCTION [id number] 10:07:00 Test Item Value Reference Range Comments TOTAL PROTEIN (BEAKER) (test 7.4 gm/dL 6.0-8.3 Specimen slightly hemolyzed vadu=029) ALBUMIN (BEAKER) (test 3.7 g/dL 3.5-5.0 Specimen slightly hemolyzed pkfv=5169) BILIRUBIN TOTAL (BEAKER) (test 0.6 mg/dL 0.2-1.2 Specimen slightly hemolyzed waxx=645) BILIRUBIN DIRECT (BEAKER) (test 0.3 mg/dL 0.1-0.5 Specimen slightly hemolyzed pjji=558) ALKALINE PHOSPHATASE (BEAKER) 107 U/L 40-150 (test lpsv=063) AST (SGOT) (BEAKER) (test 28 U/L 5-34 Specimen slightly hemolyzed eyxc=090) ALT (SGPT) (BEAKER) (test 33 U/L 6-55 Specimen slightly hemolyzed boct=311) CBC W/PLT COUNT & AUTO [id number] 09:44:00 Test Item Value Reference Range Comments WHITE BLOOD CELL COUNT (BEAKER) (test xzsr=066) 6.6 K/ L 3.5-10.5 RED BLOOD CELL COUNT (BEAKER) (test awny=880) 4.73 M/ L 4.63-6.08 HEMOGLOBIN (BEAKER) (test maes=594) 14.4 GM/DL 13.7-17.5 HEMATOCRIT (BEAKER) (test nomb=103) 40.6 % 40.1-51.0 MEAN CORPUSCULAR VOLUME (BEAKER) (test iuse=034) 85.8 fL 79.0-92.2 MEAN CORPUSCULAR HEMOGLOBIN (BEAKER) (test 30.4 pg 25.7-32.2 ksel=738) MEAN CORPUSCULAR HEMOGLOBIN CONC (BEAKER) (test 35.5 GM/DL 32.3-36.5 movm=053) RED CELL DISTRIBUTION WIDTH (BEAKER) (test 14.5 % 11.6-14.4 trtq=342) PLATELET COUNT (BEAKER) (test cbxt=726) 146 K/CU MM 150-450 MEAN PLATELET VOLUME (BEAKER) (test kdvi=014) 10.7 fL 9.4-12.4 NUCLEATED RED BLOOD CELLS (BEAKER) (test 0 /100 WBC 0-0 dmtr=663) NEUTROPHILS RELATIVE PERCENT (BEAKER) (test 62 % hecd=566) LYMPHOCYTES RELATIVE PERCENT (BEAKER) (test 27 % ydaj=675) MONOCYTES RELATIVE PERCENT (BEAKER) (test 8 % uyue=895) EOSINOPHILS RELATIVE PERCENT (BEAKER) (test 2 % rkac=308) BASOPHILS RELATIVE PERCENT (BEAKER) (test 1 % wxit=231) NEUTROPHILS ABSOLUTE COUNT (BEAKER) (test 4.05 K/ L 1.78-5.38 oxxn=213) LYMPHOCYTES ABSOLUTE COUNT (BEAKER) (test 1.78 K/ L 1.32-3.57 gfmf=816) MONOCYTES ABSOLUTE COUNT (BEAKER) (test 0.49 K/ L 0.30-0.82 uqoe=411) EOSINOPHILS ABSOLUTE COUNT (BEAKER) (test 0.15 K/ L 0.04-0.54 csad=207) BASOPHILS ABSOLUTE COUNT (BEAKER) (test 0.08 K/ L 0.01-0.08 bjam=965) IMMATURE GRANULOCYTES-RELATIVE PERCENT (BEAKER) 0 % 0-1 (test itic=5418) PROTHROMBIN [id number] 10:26:00 Test Item Value Reference Range Comments PROTIME (BEAKER) (test wrac=223) 23.9 seconds 11.9-14.2 INR (BEAKER) (test orrg=022) 2.3 <=5.9 Effective 04/16/2019: PT Reference Range ChangeNew: 11.9-14.2 Previous: 11.7- 14.7RECOMMENDED COUMADIN/WARFARIN INR THERAPY RANGESSTANDARD DOSE: 2.0-3.0 Includes: PROPHYLAXIS for venous thrombosis, systemic embolization; TREATMENT for venous thrombosis and/or pulmonary embolus.HIGH RISK: Target INR is2.5-3.5 for patients wiht mechanical heart valves.[id number] 10:24:00 Test Item Value Reference Range Comments MAGNESIUM (BEAKER) (test lusp=719) 1.5 mg/dL 1.6-2.6 BASIC METABOLIC [id number] 10:24:00 Test Item Value Reference Range Comments SODIUM (BEAKER) (test 139 meq/L 136-145 rmoc=779) POTASSIUM (BEAKER) (test 3.9 meq/L 3.5-5.1 hatg=077) CHLORIDE (BEAKER) (test 102 meq/L 98-107 rovg=559) CO2 (BEAKER) (test 31 meq/L 22-29 gdyu=847) BLOOD UREA NITROGEN 21 mg/dL 7-21 (BEAKER) (test wwvk=126) CREATININE (BEAKER) (test 1.07 mg/dL 0.57-1.25 sjzf=126) GLUCOSE RANDOM (BEAKER) 225 mg/dL 70-105 (test bthu=488) CALCIUM (BEAKER) (test 8.8 mg/dL 8.4-10.2 spww=499) EGFR (BEAKER) (test 71 mL/min/1.73 sq m ESTIMATED GFR IS NOT qqzn=8989) ACCURATE CREATININE CLEARANCE IN PREDICTING GLOMERULAR FILTRATION RATE. ESTIMATED GFR IS NOT APPLICABLE FOR DIALYSIS PATIENTS. HEPATIC FUNCTION [id number] 10:24:00 Test Item Value Reference Range Comments TOTAL PROTEIN (BEAKER) (test jxob=222) 6.7 gm/dL 6.0-8.3 ALBUMIN (BEAKER) (test scnv=6191) 3.1 g/dL 3.5-5.0 BILIRUBIN TOTAL (BEAKER) (test brkx=694) 0.7 mg/dL 0.2-1.2 BILIRUBIN DIRECT (BEAKER) (test jjfs=902) 0.4 mg/dL 0.1-0.5 ALKALINE PHOSPHATASE (BEAKER) (test mcbm=756) 147 U/L 40-150 AST (SGOT) (BEAKER) (test fmdm=976) 26 U/L 5-34 ALT (SGPT) (BEAKER) (test fabi=913) 35 U/L 6-55 LACTATE DEHYDROGENASE (LDH)2019-05-02 10:24:00 Test Item Value Reference Range Comments LACTATE DEHYDROGENASE (BEAKER) (test ntvv=431) 259 U/L 125-220 CBC W/PLT COUNT & AUTO [id number] 10:08:00 Test Item Value Reference Range Comments WHITE BLOOD CELL COUNT (BEAKER) (test kvtd=611) 5.9 K/ L 3.5-10.5 RED BLOOD CELL COUNT (BEAKER) (test sqnb=614) 4.49 M/ L 4.63-6.08 HEMOGLOBIN (BEAKER) (test vfnn=377) 13.0 GM/DL 13.7-17.5 HEMATOCRIT (BEAKER) (test wfjn=190) 38.3 % 40.1-51.0 MEAN CORPUSCULAR VOLUME (BEAKER) (test ucuh=122) 85.3 fL 79.0-92.2 MEAN CORPUSCULAR HEMOGLOBIN (BEAKER) (test 29.0 pg 25.7-32.2 skdo=818) MEAN CORPUSCULAR HEMOGLOBIN CONC (BEAKER) (test 33.9 GM/DL 32.3-36.5 dfgd=075) RED CELL DISTRIBUTION WIDTH (BEAKER) (test 13.2 % 11.6-14.4 mwib=172) PLATELET COUNT (BEAKER) (test ohav=400) 167 K/CU MM 150-450 MEAN PLATELET VOLUME (BEAKER) (test idjc=197) 10.0 fL 9.4-12.4 NUCLEATED RED BLOOD CELLS (BEAKER) (test 0 /100 WBC 0-0 bvdm=739) NEUTROPHILS RELATIVE PERCENT (BEAKER) (test 71 % hpak=253) LYMPHOCYTES RELATIVE PERCENT (BEAKER) (test 19 % qujx=902) MONOCYTES RELATIVE PERCENT (BEAKER) (test 7 % ovnh=678) EOSINOPHILS RELATIVE PERCENT (BEAKER) (test 2 % dpem=477) BASOPHILS RELATIVE PERCENT (BEAKER) (test 1 % vllu=403) NEUTROPHILS ABSOLUTE COUNT (BEAKER) (test 4.14 K/ L 1.78-5.38 iwoi=977) LYMPHOCYTES ABSOLUTE COUNT (BEAKER) (test 1.11 K/ L 1.32-3.57 vtfx=824) MONOCYTES ABSOLUTE COUNT (BEAKER) (test 0.42 K/ L 0.30-0.82 kzxt=097) EOSINOPHILS ABSOLUTE COUNT (BEAKER) (test 0.10 K/ L 0.04-0.54 onrf=248) BASOPHILS ABSOLUTE COUNT (BEAKER) (test 0.07 K/ L 0.01-0.08 zokr=351) IMMATURE GRANULOCYTES-RELATIVE PERCENT (BEAKER) 0 % 0-1 (test mdju=2483) TISSUE [id number] 19:33:00Surgical Pathology Report Case: [id number] Authorizing Provider: Shayne Ely MD Collected: 04/09/2019 1722 Ordering Location: [facility] Radiology Angio Received: 04/10/2019 0797 Pathologist: Arun Garibay MD Specimen: Biopsy, Liver, liver fibrosis LIVER, TRANSJUGULAR NEEDLE BIOPSY- CIRRHOSIS- SINUSOIDAL DILATATION, CONSISTENT WITH CONGESTIVE HEPATOPATHY Signing Pathologist Direct Phone Line: [phone] signed by Arun Garibay MD on 04/10/2019 at 7:33 [id number] C, s/p treatment with SVR in 2011, now with chronic ischemic cardiomyopathy with LVAD insertion. Transjugular needle biopsyReceived in formalin labeled with patient' s name and MRN are multiple tissue cores ranging from 0.3 cm to 1.5 cm in length respectively with an average diameter of 0.1 cm. Entirely submitted in A1.Section shows multiple variably sized cores of liver parenchyma with greater than 10 portal tracts and is adequate for evaluation. Trichrome and reticulin stain shows focally expanded and fibrotic portal tracts, consistent with cirrhosis. The fibrous septa show mild chronic lymphoplasmacytic inflammation. The bile ducts are preserved. There ischolangiolar proliferation. No periductal inflammation, granulomas or bile duct scars are seen. There are foci of sinusoidal dilatation and hepatocyte atrophy. Occasional scattered steatosis is seen. No significant lobular necroinflammation or cholestasis is seen. No hyaline globules are seen on PASD stain. Iron stain shows 1+ staining of the hepatocyes and there is iron accumulation in the kupffer cells.Special stains: trichrome, reticulin, iron and PAS with diastaseThe interpretation of this case included the use of immunohistochemistry or special stains.Control Slides Examined: In-house known positive controls were evaluated along with the test tissue. These control slides run alongside of the patients sample show appropriate staining. Internal positive and negative controls when available are evaluated Immunohistochemistry technical testing was performed at [facility], Pathology Laboratory where it was developed and its performance characteristics were determined. Ithas not been cleared or approved by the U.S. Food and Drug Administration. The FDA has determined that such clearance or approval is not necessary. The test is used for clinical purposes. It should notbe regarded as investigational or for research. This laboratory is certified under the Clinical Laboratory Improvement Amendments of 1988 (CLIA-88 ) as qualified to perform high complexity clinical laboratory testing.IAN, TRANSCATHETER [id number] 18:09:00[place] [phone] (PH)LABS: [facility] [id number] [place] [address] [phone] (PH) [phone] (FAX)Attain pressuresSpecify Organ:->liverReason for Exam:->abnormal liver imaging, liver fibrosisFINAL REPORT Transjugular liver biopsy, 04/09/2019. History: CHF, evaluation for abnormal liver function. Modality: Fluoroscopy. Sedation: Versed 1 mg and fentanyl 50 mcg was given intravenously for conscious sedation. Vital signs were monitored throughout the procedure by a nurse, and remained stable. Physician intra-service time was 30 min. Aws Solution Architect : Vandana. Manager Icu: None. Approach: Right internal jugular vein Estimated blood loss: < 5 cc. Specimen: 4 19-gauge core specimens placed within formalin and sent to pathology. Fluoroscopy Time: 4.4 min. Dose (Ka, r): 227 mGy. Technique: Informed written consent was obtained. Discussion of risks, benefits, and alternatives were made with the patient. The patient expressed understanding and agreed to proceed. All elements maximal sterile barrier technique was utilized for this procedure, including utilization of sterile scrub solution for skin prep, a large sterile sheet to cover the areas of the patient that were not prepped, and hand hygiene, mask, head covering, and sterile gown for performing radiologist and scrub technologist. Ultrasound evaluation showed a patent and compressible right right internal jugular vein, which was punctured under direct real-time ultrasound guidance with a micropuncture needle. An ultrasound image was saved to PACS. A 0.018 inch wire was placed through the needle into the right atrium. A 4 Norwegian micropuncture sheath was placed. A 0.035 inch J-wire was placed through the micropuncture sheath and the sheath was exchanged for a 9 Norwegian sheath. A 5 Norwegian angled tip catheter was used to select the right hepatic vein. Venogram was performed. Pressures were obtained through the catheter with measurements as follows: wedged hepatic - 20 mmHg, free hepatic - 16, and right atrium - 14. A long metal reinforced 7 Norwegian sheath was placed through the 9 Norwegian sheath into the right hepatic vein. A long 19-gauge core biopsy needle was then placed through sheath with 4 core samples obtained within the liver. The needle and sheath were removed. Hemostasis was obtained with manual compression. The patient tolerated the procedure well and left the department in the same condition. Findings: Venogram demonstrates patent right hepatic vein and intrahepatic IVC. Impression: Successful, uncomplicated transjugular liver biopsy, using fluoroscopic guidance and conscious sedation. Signed: Lalito RossMDReport Verified Date/Time: 2018 18:09:32 Reading Location: [place] [id number] Angio Body Reading Room COMPREHENSIVE METABOLIC [id number] 12:23:00 Test Item Value Reference Range Comments TOTAL PROTEIN (BEAKER) 6.7 gm/dL 6.0-8.3 (test jwwc=778) ALBUMIN (BEAKER) (test 3.3 g/dL 3.5-5.0 zfzp=6265) ALKALINE PHOSPHATASE 111 U/L 40-150 (BEAKER) (test fiyr=719) BILIRUBIN TOTAL (BEAKER) 0.8 mg/dL 0.2-1.2 (test cfsf=844) SODIUM (BEAKER) (test 139 meq/L 136-145 ctkb=534) POTASSIUM (BEAKER) (test 4.1 meq/L 3.5-5.1 asod=778) CHLORIDE (BEAKER) (test 105 meq/L 98-107 qvek=895) CO2 (BEAKER) (test 30 meq/L 22-29 fqkj=608) BLOOD UREA NITROGEN 20 mg/dL 7-21 (BEAKER) (test scnq=059) CREATININE (BEAKER) (test 1.01 mg/dL 0.57-1.25 jqqf=702) GLUCOSE RANDOM (BEAKER) 148 mg/dL 70-105 (test mcrk=547) CALCIUM (BEAKER) (test 8.4 mg/dL 8.4-10.2 nytu=144) AST (SGOT) (BEAKER) (test 16 U/L 5-34 suop=879) ALT (SGPT) (BEAKER) (test 27 U/L 6-55 kabn=468) EGFR (BEAKER) (test 76 mL/min/1.73 sq m ESTIMATED GFR IS NOT vign=2734) ACCURATE CREATININE CLEARANCE IN PREDICTING GLOMERULAR FILTRATION RATE. ESTIMATED GFR IS NOT APPLICABLE FOR DIALYSIS PATIENTS. [id number] 12:13:00 Test Item Value Reference Range Comments PARTIAL THROMBOPLASTIN TIME (BEAKER) (test 31.3 seconds 22.5-36.0 gnmj=054) PROTHROMBIN [id number] 12:12:00 Test Item Value Reference Range Comments PROTIME (BEAKER) (test ffsn=383) 14.7 seconds 11.7-14.7 INR (BEAKER) (test uznn=858) 1.2 <=5.9 RECOMMENDED COUMADIN/WARFARIN INR THERAPY RANGESSTANDARD DOSE: 2.0 - 3.0 Includes: PROPHYLAXIS forvenous thrombosis, systemic embolization; TREATMENT for venous thrombosis and/or pulmonary embolus.HIGH RISK: Target INR is 2.5-3.5 for patients with mechanical heart valves.CBC W/PLT COUNT & AUTO [id number] 12:04:00 Test Item Value Reference Range Comments WHITE BLOOD CELL COUNT (BEAKER) (test fpzj=490) 6.6 K/ L 3.5-10.5 RED BLOOD CELL COUNT (BEAKER) (test xbwe=077) 4.04 M/ L 4.63-6.08 HEMOGLOBIN (BEAKER) (test hdli=635) 12.1 GM/DL 13.7-17.5 HEMATOCRIT (BEAKER) (test kftj=448) 36.2 % 40.1-51.0 MEAN CORPUSCULAR VOLUME (BEAKER) (test njke=509) 89.6 fL 79.0-92.2 MEAN CORPUSCULAR HEMOGLOBIN (BEAKER) (test 30.0 pg 25.7-32.2 brao=927) MEAN CORPUSCULAR HEMOGLOBIN CONC (BEAKER) (test 33.4 GM/DL 32.3-36.5 ztsp=010) RED CELL DISTRIBUTION WIDTH (BEAKER) (test 13.2 % 11.6-14.4 fzzp=756) PLATELET COUNT (BEAKER) (test iswj=013) 114 K/CU MM 150-450 MEAN PLATELET VOLUME (BEAKER) (test uowl=750) 10.4 fL 9.4-12.4 NUCLEATED RED BLOOD CELLS (BEAKER) (test 0 /100 WBC 0-0 ygxj=884) NEUTROPHILS RELATIVE PERCENT (BEAKER) (test 64 % jirk=858) LYMPHOCYTES RELATIVE PERCENT (BEAKER) (test 24 % umyq=877) MONOCYTES RELATIVE PERCENT (BEAKER) (test 8 % nfwf=939) EOSINOPHILS RELATIVE PERCENT (BEAKER) (test 2 % pool=804) BASOPHILS RELATIVE PERCENT (BEAKER) (test 1 % fjib=782) NEUTROPHILS ABSOLUTE COUNT (BEAKER) (test 4.21 K/ L 1.78-5.38 tvrz=584) LYMPHOCYTES ABSOLUTE COUNT (BEAKER) (test 1.58 K/ L 1.32-3.57 ojgl=445) MONOCYTES ABSOLUTE COUNT (BEAKER) (test 0.52 K/ L 0.30-0.82 jhrp=230) EOSINOPHILS ABSOLUTE COUNT (BEAKER) (test 0.16 K/ L 0.04-0.54 pven=975) BASOPHILS ABSOLUTE COUNT (BEAKER) (test 0.08 K/ L 0.01-0.08 wrid=535) IMMATURE GRANULOCYTES-RELATIVE PERCENT (BEAKER) 1 % 0-1 (test fdxd=2412) TSH/FREE T4 IF [id number] 11:07:00 Test Item Value Reference Range Comments THYROID STIMULATING HORMONE (BEAKER) (test 4.38 uIU/mL 0.35-4.94 flig=473) PROTHROMBIN [id number] 10:59:00 Test Item Value Reference Range Comments PROTIME (BEAKER) (test ddtn=172) 20.3 seconds 11.7-14.7 INR (BEAKER) (test liek=894) 1.7 <=5.9 RECOMMENDED COUMADIN/WARFARIN INR THERAPY RANGESSTANDARD DOSE: 2.0 - 3.0 Includes: PROPHYLAXIS forvenous thrombosis, systemic embolization; TREATMENT for venous thrombosis and/or pulmonary embolus.HIGH RISK: Target INR is 2.5-3.5 for patients with mechanical heart valves.[id number] 10:49:00 Test Item Value Reference Range Comments MAGNESIUM (BEAKER) (test qnfa=722) 1.6 mg/dL 1.6-2.6 BASIC METABOLIC [id number] 10:49:00 Test Item Value Reference Range Comments SODIUM (BEAKER) (test 138 meq/L 136-145 pkxf=446) POTASSIUM (BEAKER) (test 4.8 meq/L 3.5-5.1 eykg=827) CHLORIDE (BEAKER) (test 106 meq/L 98-107 dwmh=573) CO2 (BEAKER) (test 26 meq/L 22-29 ycru=008) BLOOD UREA NITROGEN 26 mg/dL 7-21 (BEAKER) (test ujtr=877) CREATININE (BEAKER) (test 0.99 mg/dL 0.57-1.25 ystd=389) GLUCOSE RANDOM (BEAKER) 95 mg/dL 70-105 (test ltyi=720) CALCIUM (BEAKER) (test 9.8 mg/dL 8.4-10.2 jojj=788) EGFR (BEAKER) (test 78 mL/min/1.73 sq m ESTIMATED GFR IS NOT hvlp=8784) ACCURATE CREATININE CLEARANCE IN PREDICTING GLOMERULAR FILTRATION RATE. ESTIMATED GFR IS NOT APPLICABLE FOR DIALYSIS PATIENTS. HEPATIC FUNCTION [id number] 10:49:00 Test Item Value Reference Range Comments TOTAL PROTEIN (BEAKER) (test vmvw=001) 7.5 gm/dL 6.0-8.3 ALBUMIN (BEAKER) (test mcod=5927) 3.7 g/dL 3.5-5.0 BILIRUBIN TOTAL (BEAKER) (test noyx=823) 0.8 mg/dL 0.2-1.2 BILIRUBIN DIRECT (BEAKER) (test thzd=995) 0.3 mg/dL 0.1-0.5 ALKALINE PHOSPHATASE (BEAKER) (test oahw=340) 102 U/L 40-150 AST (SGOT) (BEAKER) (test anbd=257) 36 U/L 5-34 ALT (SGPT) (BEAKER) (test mdgb=331) 42 U/L 6-55 LACTATE DEHYDROGENASE (LDH)2019-01-17 10:49:00 Test Item Value Reference Range Comments LACTATE DEHYDROGENASE (BEAKER) (test ucdm=374) 297 U/L 125-220 IRON, TIBC, % SAT. (WITHOUT FERRITIN)2019-01-17 10:47:00 Test Item Value Reference Range Comments IRON (BEAKER) (test jsgb=032) 104.0 ug/dL 40.0-160.0 TOTAL IRON BINDING CAPACITY (BEAKER) (test 288 ug/dL 250-450 jhku=004) IRON % SATURATION (2) (BEAKER) (test kfup=5408) 36 % 20-55 CBC W/PLT COUNT & AUTO [id number] 10:32:00 Test Item Value Reference Range Comments WHITE BLOOD CELL COUNT (BEAKER) (test vcnu=165) 6.5 K/ L 3.5-10.5 RED BLOOD CELL COUNT (BEAKER) (test kzcb=789) 5.00 M/ L 4.63-6.08 HEMOGLOBIN (BEAKER) (test tzzn=446) 14.8 GM/DL 13.7-17.5 HEMATOCRIT (BEAKER) (test mqbm=420) 43.6 % 40.1-51.0 MEAN CORPUSCULAR VOLUME (BEAKER) (test mdlv=686) 87.2 fL 79.0-92.2 MEAN CORPUSCULAR HEMOGLOBIN (BEAKER) (test 29.6 pg 25.7-32.2 etcm=843) MEAN CORPUSCULAR HEMOGLOBIN CONC (BEAKER) (test 33.9 GM/DL 32.3-36.5 kijq=967) RED CELL DISTRIBUTION WIDTH (BEAKER) (test 13.4 % 11.6-14.4 reqw=928) PLATELET COUNT (BEAKER) (test amyh=870) 145 K/CU MM 150-450 MEAN PLATELET VOLUME (BEAKER) (test byni=381) 10.1 fL 9.4-12.4 NUCLEATED RED BLOOD CELLS (BEAKER) (test 0 /100 WBC 0-0 pmwg=138) NEUTROPHILS RELATIVE PERCENT (BEAKER) (test 61 % ngsr=787) LYMPHOCYTES RELATIVE PERCENT (BEAKER) (test 28 % efyu=174) MONOCYTES RELATIVE PERCENT (BEAKER) (test 8 % qzfi=731) EOSINOPHILS RELATIVE PERCENT (BEAKER) (test 2 % vgow=621) BASOPHILS RELATIVE PERCENT (BEAKER) (test 1 % tdzq=637) NEUTROPHILS ABSOLUTE COUNT (BEAKER) (test 3.91 K/ L 1.78-5.38 jexj=915) LYMPHOCYTES ABSOLUTE COUNT (BEAKER) (test 1.80 K/ L 1.32-3.57 osnd=617) MONOCYTES ABSOLUTE COUNT (BEAKER) (test 0.51 K/ L 0.30-0.82 jnya=013) EOSINOPHILS ABSOLUTE COUNT (BEAKER) (test 0.13 K/ L 0.04-0.54 zjmf=329) BASOPHILS ABSOLUTE COUNT (BEAKER) (test 0.08 K/ L 0.01-0.08 ntvn=698) IMMATURE GRANULOCYTES-RELATIVE PERCENT (BEAKER) 1 % 0-1 (test ktvl=5125) [id number] 11:15:00 Test Item Value Reference Range Comments FERRITIN (BEAKER) (test jinp=760) 493 ng/mL 5-275 IRON, TIBC, % SAT. (WITHOUT FERRITIN)2018-11-01 10:55:00 Test Item Value Reference Range Comments IRON (BEAKER) (test fzho=120) 129.0 ug/dL 40.0-160.0 TOTAL IRON BINDING CAPACITY (BEAKER) (test 268 ug/dL 250-450 gxwv=037) IRON % SATURATION (2) (BEAKER) (test quuj=4550) 48 % 20-55 [id number] 10:52:00 Test Item Value Reference Range Comments MAGNESIUM (BEAKER) (test wrrl=607) 1.8 mg/dL 1.6-2.6 BASIC METABOLIC [id number] 10:52:00 Test Item Value Reference Range Comments SODIUM (BEAKER) (test 137 meq/L 136-145 pazc=275) POTASSIUM (BEAKER) (test 4.6 meq/L 3.5-5.1 knwe=802) CHLORIDE (BEAKER) (test 104 meq/L 98-107 zghy=346) CO2 (BEAKER) (test 27 meq/L 22-29 kbcy=943) BLOOD UREA NITROGEN 21 mg/dL 7-21 (BEAKER) (test zsne=999) CREATININE (BEAKER) (test 1.12 mg/dL 0.57-1.25 dssd=420) GLUCOSE RANDOM (BEAKER) 105 mg/dL 70-105 (test fcon=641) CALCIUM (BEAKER) (test 8.8 mg/dL 8.4-10.2 ufai=124) EGFR (BEAKER) (test 68 mL/min/1.73 sq m ESTIMATED GFR IS NOT kkmw=1036) ACCURATE CREATININE CLEARANCE IN PREDICTING GLOMERULAR FILTRATION RATE. ESTIMATED GFR IS NOT APPLICABLE FOR DIALYSIS PATIENTS. HEPATIC FUNCTION [id number] 10:52:00 Test Item Value Reference Range Comments TOTAL PROTEIN (BEAKER) (test xlrg=144) 7.1 gm/dL 6.0-8.3 ALBUMIN (BEAKER) (test zzij=5391) 3.6 g/dL 3.5-5.0 BILIRUBIN TOTAL (BEAKER) (test tzfo=516) 1.1 mg/dL 0.2-1.2 BILIRUBIN DIRECT (BEAKER) (test tyqm=127) 0.5 mg/dL 0.1-0.5 ALKALINE PHOSPHATASE (BEAKER) (test qzkk=465) 98 U/L 40-150 AST (SGOT) (BEAKER) (test sfcr=714) 30 U/L 5-34 ALT (SGPT) (BEAKER) (test snab=681) 41 U/L 6-55 LACTATE DEHYDROGENASE (LDH)2018-11-01 10:52:00 Test Item Value Reference Range Comments LACTATE DEHYDROGENASE (BEAKER) (test kzqb=211) 275 U/L 125-220 PROTHROMBIN [id number] 10:37:00 Test Item Value Reference Range Comments PROTIME (BEAKER) (test frod=207) 21.1 seconds 11.7-14.7 INR (BEAKER) (test lavj=309) 1.8 <=5.9 RECOMMENDED COUMADIN/WARFARIN INR THERAPY RANGESSTANDARD DOSE: 2.0 - 3.0 Includes: PROPHYLAXIS forvenous thrombosis, systemic embolization; TREATMENT for venous thrombosis and/or pulmonary embolus.HIGH RISK: Target INR is 2.5-3.5 for patients with mechanical heart valves.CBC W/PLT COUNT & AUTO [id number] 10:31:00 Test Item Value Reference Range Comments WHITE BLOOD CELL COUNT (BEAKER) (test qbvj=995) 6.3 K/ L 3.5-10.5 RED BLOOD CELL COUNT (BEAKER) (test vlhd=944) 4.65 M/ L 4.63-6.08 HEMOGLOBIN (BEAKER) (test weui=805) 13.9 GM/DL 13.7-17.5 HEMATOCRIT (BEAKER) (test rqoh=442) 40.4 % 40.1-51.0 MEAN CORPUSCULAR VOLUME (BEAKER) (test sdor=730) 86.9 fL 79.0-92.2 MEAN CORPUSCULAR HEMOGLOBIN (BEAKER) (test 29.9 pg 25.7-32.2 omnz=631) MEAN CORPUSCULAR HEMOGLOBIN CONC (BEAKER) (test 34.4 GM/DL 32.3-36.5 cjlc=982) RED CELL DISTRIBUTION WIDTH (BEAKER) (test 13.2 % 11.6-14.4 qsst=703) PLATELET COUNT (BEAKER) (test lmjs=410) 113 K/CU MM 150-450 MEAN PLATELET VOLUME (BEAKER) (test qoin=490) 10.1 fL 9.4-12.4 NUCLEATED RED BLOOD CELLS (BEAKER) (test 0 /100 WBC 0-0 hary=936) NEUTROPHILS RELATIVE PERCENT (BEAKER) (test 65 % etmc=236) LYMPHOCYTES RELATIVE PERCENT (BEAKER) (test 24 % ioeq=021) MONOCYTES RELATIVE PERCENT (BEAKER) (test 9 % wbck=659) EOSINOPHILS RELATIVE PERCENT (BEAKER) (test 2 % bcob=412) BASOPHILS RELATIVE PERCENT (BEAKER) (test 1 % vmdo=190) NEUTROPHILS ABSOLUTE COUNT (BEAKER) (test 4.07 K/ L 1.78-5.38 sgaw=188) LYMPHOCYTES ABSOLUTE COUNT (BEAKER) (test 1.48 K/ L 1.32-3.57 mcaq=872) MONOCYTES ABSOLUTE COUNT (BEAKER) (test 0.54 K/ L 0.30-0.82 betl=050) EOSINOPHILS ABSOLUTE COUNT (BEAKER) (test 0.12 K/ L 0.04-0.54 giom=705) BASOPHILS ABSOLUTE COUNT (BEAKER) (test 0.05 K/ L 0.01-0.08 sicc=517) IMMATURE GRANULOCYTES-RELATIVE PERCENT (BEAKER) 0 % 0-1 (test kkfc=4035) POCT-GLUCOSE [id number] 12:39:00 Test Item Value Reference Range Comments POC-GLUCOSE METER (BEAKER) 268 mg/dL 70-110 TESTED AT [facility] [address] [place] [address] (test xupk=6850) [facility] [address] HEMOGLOBIN [id number] 09:05:00 Test Item Value Reference Range Comments HEMOGLOBIN A1C (BEAKER) (test lcwr=761) 6.0 % 4.3-6.1 RAD, CHEST, 1 VIEW, NON [id number] 08:45:00[place] [phone] (PH)LABS : [facility] [place] [address] [phone] (PH) [phone] (FAX)Reason for exam:->LVADFINAL REPORT HISTORY : LVAD. Comparison: 11/21/2017 Comment: Single portable view of the chest was obtained. The cardiac silhouette size is enlarged. LVAD and left-sided multileadICD are in place. No pneumothorax or pleural effusion is seen. No lytic or blastic abnormalities areappreciated. Some fixation hardware is seen in the lower cervical spine. The patient is status post sternotomy. Signed: Hank Bass MDReport Verified Date/Time: 09/12/2018 08:45:58 Reading Location: [facility] Diagnostic Imaging Reading Room - [place] [id number] POCT-GLUCOSE [id number] 07:56:00 Test Item Value Reference Range Comments POC-GLUCOSE METER (BEAKER) 178 mg/dL 70-110 TESTED AT [facility] [address] [facility] (test femz=7481) [facility] [address] PROTHROMBIN [id number] 03:25:00 Test Item Value Reference Range Comments PROTIME (BEAKER) (test qtop=294) 18.2 seconds 11.7-14.7 INR (BEAKER) (test taje=486) 1.5 <=5.9 RECOMMENDED COUMADIN/WARFARIN INR THERAPY RANGESSTANDARD DOSE: 2.0 - 3.0 Includes: PROPHYLAXIS forvenous thrombosis, systemic embolization; TREATMENT for venous thrombosis and/or pulmonary embolus.HIGH RISK: Target INR is 2.5-3.5 for patients with mechanical heart valves.[id number] 03:13:00 Test Item Value Reference Range Comments PHOSPHORUS (BEAKER) (test ytyk=431) 2.4 mg/dL 2.3-4.7 [id number] 03:13:00 Test Item Value Reference Range Comments MAGNESIUM (BEAKER) (test uvml=814) 2.0 mg/dL 1.6-2.6 BASIC METABOLIC [id number] 03:13:00 Test Item Value Reference Range Comments SODIUM (BEAKER) (test 141 meq/L 136-145 megi=872) POTASSIUM (BEAKER) (test 4.2 meq/L 3.5-5.1 ctyz=646) CHLORIDE (BEAKER) (test 108 meq/L 98-107 wfkb=528) CO2 (BEAKER) (test 28 meq/L 22-29 nhxx=033) BLOOD UREA NITROGEN 28 mg/dL 7-21 (BEAKER) (test kkqc=117) CREATININE (BEAKER) (test 1.04 mg/dL 0.57-1.25 aqiw=794) GLUCOSE RANDOM (BEAKER) 209 mg/dL 70-105 (test wgiv=950) CALCIUM (BEAKER) (test 8.9 mg/dL 8.4-10.2 qsve=550) EGFR (BEAKER) (test 74 mL/min/1.73 sq m ESTIMATED GFR IS NOT jkei=3083) ACCURATE CREATININE CLEARANCE IN PREDICTING GLOMERULAR FILTRATION RATE. ESTIMATED GFR IS NOT APPLICABLE FOR DIALYSIS PATIENTS. HEPATIC FUNCTION [id number] 03:13:00 Test Item Value Reference Range Comments TOTAL PROTEIN (BEAKER) (test nmnz=481) 6.6 gm/dL 6.0-8.3 ALBUMIN (BEAKER) (test kvkw=1364) 3.3 g/dL 3.5-5.0 BILIRUBIN TOTAL (BEAKER) (test cmxr=740) 0.6 mg/dL 0.2-1.2 BILIRUBIN DIRECT (BEAKER) (test tfvc=361) 0.3 mg/dL 0.1-0.5 ALKALINE PHOSPHATASE (BEAKER) (test walo=058) 102 U/L 40-150 AST (SGOT) (BEAKER) (test parw=586) 31 U/L 5-34 ALT (SGPT) (BEAKER) (test djuf=399) 50 U/L 6-55 LACTATE DEHYDROGENASE (LDH)2018-09-12 03:13:00 Test Item Value Reference Range Comments LACTATE DEHYDROGENASE (BEAKER) (test hmix=559) 257 U/L 125-220 LACTIC ACID, VENOUS, WHOLE [id number] 03:03:00 Test Item Value Reference Range Comments LACTATE BLOOD VENOUS (2) 0.9 mmol/L 0.5-2.2 Specimen slightly hemolyzed (BEAKER) (test toyg=2367) Effective 03/22/2016: Units/Reference Range ChangeNew: 0.5-2.2 mmol/L Previous: 5 -20 mg/dLCBC W/PLT COUNT & AUTO [id number] 02:41:00 Test Item Value Reference Range Comments WHITE BLOOD CELL COUNT (BEAKER) (test daac=054) 8.0 K/ L 3.5-10.5 RED BLOOD CELL COUNT (BEAKER) (test eojz=169) 4.31 M/ L 4.63-6.08 HEMOGLOBIN (BEAKER) (test hqaq=517) 13.1 GM/DL 13.7-17.5 HEMATOCRIT (BEAKER) (test igzt=695) 38.6 % 40.1-51.0 MEAN CORPUSCULAR VOLUME (BEAKER) (test qslr=578) 89.6 fL 79.0-92.2 MEAN CORPUSCULAR HEMOGLOBIN (BEAKER) (test 30.4 pg 25.7-32.2 cqcb=081) MEAN CORPUSCULAR HEMOGLOBIN CONC (BEAKER) (test 33.9 GM/DL 32.3-36.5 vpmr=435) RED CELL DISTRIBUTION WIDTH (BEAKER) (test 13.3 % 11.6-14.4 nxla=983) PLATELET COUNT (BEAKER) (test vxzm=853) 119 K/CU MM 150-450 MEAN PLATELET VOLUME (BEAKER) (test svnb=438) 10.1 fL 9.4-12.4 NUCLEATED RED BLOOD CELLS (BEAKER) (test 0 /100 WBC 0-0 pktt=117) NEUTROPHILS RELATIVE PERCENT (BEAKER) (test 67 % kgvc=346) LYMPHOCYTES RELATIVE PERCENT (BEAKER) (test 22 % ahij=404) MONOCYTES RELATIVE PERCENT (BEAKER) (test 8 % gmga=820) EOSINOPHILS RELATIVE PERCENT (BEAKER) (test 2 % ejpg=283) BASOPHILS RELATIVE PERCENT (BEAKER) (test 1 % spjf=661) NEUTROPHILS ABSOLUTE COUNT (BEAKER) (test 5.32 K/ L 1.78-5.38 etcm=647) LYMPHOCYTES ABSOLUTE COUNT (BEAKER) (test 1.73 K/ L 1.32-3.57 wlqe=734) MONOCYTES ABSOLUTE COUNT (BEAKER) (test 0.63 K/ L 0.30-0.82 quay=399) EOSINOPHILS ABSOLUTE COUNT (BEAKER) (test 0.17 K/ L 0.04-0.54 slbw=837) BASOPHILS ABSOLUTE COUNT (BEAKER) (test 0.07 K/ L 0.01-0.08 skmd=644) IMMATURE GRANULOCYTES-RELATIVE PERCENT (BEAKER) 0 % 0-1 (test mqly=5446) POCT-GLUCOSE [id number] 21:39:00 Test Item Value Reference Range Comments POC-GLUCOSE METER (BEAKER) 177 mg/dL 70-110 TESTED AT [facility] [address] [facility] (test wacs=2157) [facility] [address] TSH/FREE T4 IF [id number] 19:50:00 Test Item Value Reference Range Comments THYROID STIMULATING HORMONE (BEAKER) (test 3.30 uIU/mL 0.35-4.94 lrbk=580) VITAMIN B12 AND [id number] 19:50:00 Test Item Value Reference Range Comments VITAMIN B12 (BEAKER) (test bgdi=073) 528 pg/mL 213-816 FOLATE (BEAKER) (test qhip=257) 14.8 ng/mL >=7.0 CT, BRAIN, WITHOUT [id number] 19:41:00[place] [phone] ()LABS : [facility] [address] [place] [address] [phone] (PH) [phone] (FAX)Reason for exam:->Dizziness for hours, evaluate for strokeWhat is the patient's sedation requirement?->No SedationFINAL REPORT CT head without contrast INDICATION : Dizziness TECHNIQUE: Axial noncontrast CT images through the head were obtained. This exam was performed according to our departmental dose optimization program which includes automated exposure control, adjustment of the mA and/or kV according to patient size and/or use of iterative reconstruction technique. COMPARISON: CT head08/31/2017 FINDINGS:Elevated vascular density may reflect dehydration or high hematocrit. No hematoma, extra axial collection, or mass effect is evident. Minimal microvascular ischemic changes are chronic appearing. Please note that CT is insensitive for early or small infarcts. Generalized volume loss and vascular calcifications are noted. There is no hydrocephalus or midline shift. Left mastoidectomy changes are stable. There is minimal chronic sinus mucosal disease. The globes remain mildly proptotic. A right preauricular dermal lesion is unchanged. The calvarium is intact. IMPRESSION: No acute intracranial hemorrhage or mass effect. Chronic appearing microvascular and involutional changes. Stable left mastoidectomy changes. If there is persistent concern for acute abnormality, MRI is advised.Signed: Devonte Marsh Verified Date/Time: 2017 19:41:46 Reading Location: [facility] Radiology Reading Room 07:41 [id number] 19:19:00 Test Item Value Reference Range Comments MAGNESIUM (BEAKER) (test spjn=066) 2.1 mg/dL 1.6-2.6 BASIC METABOLIC [id number] 19:19:00 Test Item Value Reference Range Comments SODIUM (BEAKER) (test 141 meq/L 136-145 bdho=295) POTASSIUM (BEAKER) (test 4.7 meq/L 3.5-5.1 pixo=005) CHLORIDE (BEAKER) (test 108 meq/L 98-107 fugc=546) CO2 (BEAKER) (test 28 meq/L 22-29 jgzb=977) BLOOD UREA NITROGEN 28 mg/dL 7-21 (BEAKER) (test qmvs=728) CREATININE (BEAKER) (test 0.97 mg/dL 0.57-1.25 gawk=163) GLUCOSE RANDOM (BEAKER) 130 mg/dL 70-105 (test gjhu=147) CALCIUM (BEAKER) (test 9.1 mg/dL 8.4-10.2 ewaj=094) EGFR (BEAKER) (test 80 mL/min/1.73 sq m ESTIMATED GFR IS NOT kdmu=4406) ACCURATE CREATININE CLEARANCE IN PREDICTING GLOMERULAR FILTRATION RATE. ESTIMATED GFR IS NOT APPLICABLE FOR DIALYSIS PATIENTS. HEPATIC FUNCTION [id number] 19:19:00 Test Item Value Reference Range Comments TOTAL PROTEIN (BEAKER) (test iubo=380) 7.3 gm/dL 6.0-8.3 ALBUMIN (BEAKER) (test jbkx=9712) 3.6 g/dL 3.5-5.0 BILIRUBIN TOTAL (BEAKER) (test xxkb=576) 0.8 mg/dL 0.2-1.2 BILIRUBIN DIRECT (BEAKER) (test xova=912) 0.4 mg/dL 0.1-0.5 ALKALINE PHOSPHATASE (BEAKER) (test mkhd=948) 114 U/L 40-150 AST (SGOT) (BEAKER) (test xaoq=765) 33 U/L 5-34 ALT (SGPT) (BEAKER) (test xuzt=210) 53 U/L 6-55 PROTHROMBIN [id number] 19:09:00 Test Item Value Reference Range Comments PROTIME (BEAKER) (test hvgl=490) 17.9 seconds 11.7-14.7 INR (BEAKER) (test jpxu=370) 1.5 <=5.9 RECOMMENDED COUMADIN/WARFARIN INR THERAPY RANGESSTANDARD DOSE: 2.0 - 3.0 Includes: PROPHYLAXIS forvenous thrombosis, systemic embolization; TREATMENT for venous thrombosis and/or pulmonary embolus.HIGH RISK: Target INR is 2.5-3.5 for patients with mechanical heart valves.CBC W/PLT COUNT & AUTO [id number] 19:00:00 Test Item Value Reference Range Comments WHITE BLOOD CELL COUNT (BEAKER) (test fbro=864) 7.8 K/ L 3.5-10.5 RED BLOOD CELL COUNT (BEAKER) (test chkb=227) 4.69 M/ L 4.63-6.08 HEMOGLOBIN (BEAKER) (test wtlr=183) 14.2 GM/DL 13.7-17.5 HEMATOCRIT (BEAKER) (test gzwt=427) 41.9 % 40.1-51.0 MEAN CORPUSCULAR VOLUME (BEAKER) (test fjdq=074) 89.3 fL 79.0-92.2 MEAN CORPUSCULAR HEMOGLOBIN (BEAKER) (test 30.3 pg 25.7-32.2 zijl=933) MEAN CORPUSCULAR HEMOGLOBIN CONC (BEAKER) (test 33.9 GM/DL 32.3-36.5 cble=917) RED CELL DISTRIBUTION WIDTH (BEAKER) (test 13.5 % 11.6-14.4 yfde=112) PLATELET COUNT (BEAKER) (test pegk=429) 140 K/CU MM 150-450 MEAN PLATELET VOLUME (BEAKER) (test nyuv=996) 10.3 fL 9.4-12.4 NUCLEATED RED BLOOD CELLS (BEAKER) (test 0 /100 WBC 0-0 agph=474) NEUTROPHILS RELATIVE PERCENT (BEAKER) (test 69 % iadv=150) LYMPHOCYTES RELATIVE PERCENT (BEAKER) (test 22 % mgxw=372) MONOCYTES RELATIVE PERCENT (BEAKER) (test 7 % xndg=564) EOSINOPHILS RELATIVE PERCENT (BEAKER) (test 1 % iemx=319) BASOPHILS RELATIVE PERCENT (BEAKER) (test 1 % xtyj=371) NEUTROPHILS ABSOLUTE COUNT (BEAKER) (test 5.33 K/ L 1.78-5.38 qwpz=517) LYMPHOCYTES ABSOLUTE COUNT (BEAKER) (test 1.70 K/ L 1.32-3.57 mlsb=034) MONOCYTES ABSOLUTE COUNT (BEAKER) (test 0.52 K/ L 0.30-0.82 nogw=181) EOSINOPHILS ABSOLUTE COUNT (BEAKER) (test 0.09 K/ L 0.04-0.54 yvwj=176) BASOPHILS ABSOLUTE COUNT (BEAKER) (test 0.07 K/ L 0.01-0.08 rred=099) IMMATURE GRANULOCYTES-RELATIVE PERCENT (BEAKER) 1 % 0-1 (test dyfh=5648) POCT-GLUCOSE [id number] 17:34:00 Test Item Value Reference Range Comments POC-GLUCOSE METER (BEAKER) 141 mg/dL 70-110 TESTED AT [facility] [address] [facility] (test xcfn=9012) [facility] [address] LIPID [id number] 10:35:00 Test Item Value Reference Range Comments TRIGLYCERIDES (BEAKER) (test npbi=146) 221 mg/dL CHOLESTEROL (BEAKER) (test joqn=433) 161 mg/dL HDL CHOLESTEROL (BEAKER) (test tzmk=355) 34 mg/dL LDL CHOLESTEROL CALCULATED (BEAKER) (test 83 mg/dL nrez=519) Triglyceride Reference Range: Low Risk <150 Borderline 150- 199 High Risk 200-499 Very High Risk >=500Cholesterol Reference Range: Low Risk <200 Borderline 200-239 High Risk > 240HDL Cholesterol Reference Range: Low Risk >=60 High Risk <40LDL Cholesterol Reference Range: Optimal <100 Near Optimal 100-129 Borderline 130-159 High 160-189 Very High >=[id number] 08:24:00 Test Item Value Reference Range Comments MAGNESIUM (BEAKER) (test jfal=661) 2.2 mg/dL 1.6-2.6 BASIC METABOLIC [id number] 08:24:00 Test Item Value Reference Range Comments SODIUM (BEAKER) (test 135 meq/L 136-145 axfd=350) POTASSIUM (BEAKER) (test 5.4 meq/L 3.5-5.1 gcwb=030) CHLORIDE (BEAKER) (test 101 meq/L 98-107 hgfp=059) CO2 (BEAKER) (test 28 meq/L 22-29 hygx=498) BLOOD UREA NITROGEN 36 mg/dL 7-21 (BEAKER) (test ppvk=282) CREATININE (BEAKER) (test 1.50 mg/dL 0.57-1.25 wucu=251) GLUCOSE RANDOM (BEAKER) 255 mg/dL 70-105 (test dkfx=004) CALCIUM (BEAKER) (test 9.4 mg/dL 8.4-10.2 owhf=731) EGFR (BEAKER) (test 48 mL/min/1.73 sq m ESTIMATED GFR IS NOT ruib=4341) ACCURATE CREATININE CLEARANCE IN PREDICTING GLOMERULAR FILTRATION RATE. ESTIMATED GFR IS NOT APPLICABLE FOR DIALYSIS PATIENTS. HEPATIC FUNCTION [id number] 08:24:00 Test Item Value Reference Range Comments TOTAL PROTEIN (BEAKER) (test bgha=948) 7.8 gm/dL 6.0-8.3 ALBUMIN (BEAKER) (test jbva=1744) 3.8 g/dL 3.5-5.0 BILIRUBIN TOTAL (BEAKER) (test reqb=292) 0.6 mg/dL 0.2-1.2 BILIRUBIN DIRECT (BEAKER) (test lire=071) 0.3 mg/dL 0.1-0.5 ALKALINE PHOSPHATASE (BEAKER) (test vuwx=710) 129 U/L 40-150 AST (SGOT) (BEAKER) (test vqkr=078) 35 U/L 5-34 ALT (SGPT) (BEAKER) (test jlep=109) 47 U/L 6-55 LACTATE DEHYDROGENASE (LDH)2018-08-23 08:24:00 Test Item Value Reference Range Comments LACTATE DEHYDROGENASE (BEAKER) (test drmt=667) 316 U/L 125-220 PROTHROMBIN [id number] 08:13:00 Test Item Value Reference Range Comments PROTIME (BEAKER) (test nxst=171) 20.4 seconds 11.7-14.7 INR (BEAKER) (test weay=390) 1.8 <=5.9 RECOMMENDED COUMADIN/WARFARIN INR THERAPY RANGESSTANDARD DOSE: 2.0 - 3.0 Includes: PROPHYLAXIS forvenous thrombosis, systemic embolization; TREATMENT for venous thrombosis and/or pulmonary embolus.HIGH RISK: Target INR is 2.5-3.5 for patients with mechanical heart valves.CBC W/PLT COUNT & AUTO [id number] 08:04:00 Test Item Value Reference Range Comments WHITE BLOOD CELL COUNT (BEAKER) (test uezv=895) 7.7 K/ L 3.5-10.5 RED BLOOD CELL COUNT (BEAKER) (test sxet=950) 4.61 M/ L 4.63-6.08 HEMOGLOBIN (BEAKER) (test rsnw=573) 14.2 GM/DL 13.7-17.5 HEMATOCRIT (BEAKER) (test crvy=277) 41.7 % 40.1-51.0 MEAN CORPUSCULAR VOLUME (BEAKER) (test cgdo=904) 90.5 fL 79.0-92.2 MEAN CORPUSCULAR HEMOGLOBIN (BEAKER) (test 30.8 pg 25.7-32.2 ykbq=091) MEAN CORPUSCULAR HEMOGLOBIN CONC (BEAKER) (test 34.1 GM/DL 32.3-36.5 skkw=846) RED CELL DISTRIBUTION WIDTH (BEAKER) (test 13.1 % 11.6-14.4 npgp=468) PLATELET COUNT (BEAKER) (test oddq=117) 166 K/CU MM 150-450 MEAN PLATELET VOLUME (BEAKER) (test lzzd=246) 10.3 fL 9.4-12.4 NUCLEATED RED BLOOD CELLS (BEAKER) (test 0 /100 WBC 0-0 pnwu=587) NEUTROPHILS RELATIVE PERCENT (BEAKER) (test 63 % mijf=119) LYMPHOCYTES RELATIVE PERCENT (BEAKER) (test 25 % cklg=206) MONOCYTES RELATIVE PERCENT (BEAKER) (test 9 % rwev=616) EOSINOPHILS RELATIVE PERCENT (BEAKER) (test 2 % zyoi=353) BASOPHILS RELATIVE PERCENT (BEAKER) (test 1 % ndwd=369) NEUTROPHILS ABSOLUTE COUNT (BEAKER) (test 4.84 K/ L 1.78-5.38 brlv=032) LYMPHOCYTES ABSOLUTE COUNT (BEAKER) (test 1.95 K/ L 1.32-3.57 cfdv=554) MONOCYTES ABSOLUTE COUNT (BEAKER) (test 0.65 K/ L 0.30-0.82 knup=182) EOSINOPHILS ABSOLUTE COUNT (BEAKER) (test 0.14 K/ L 0.04-0.54 vvpu=355) BASOPHILS ABSOLUTE COUNT (BEAKER) (test 0.07 K/ L 0.01-0.08 nckk=760) IMMATURE GRANULOCYTES-RELATIVE PERCENT (BEAKER) 1 % 0-1 (test uvzo=9114) [id number] 12:54:00 Test Item Value Reference Range Comments FERRITIN (BEAKER) (test uqml=232) 475 ng/mL 5-275 [id number] 12:33:00 Test Item Value Reference Range Comments PREALBUMIN (BEAKER) (test gkji=004) 16 mg/dL 14-45 IRON, TIBC, % SAT. (WITHOUT FERRITIN)2018-06-21 12:33:00 Test Item Value Reference Range Comments IRON (BEAKER) (test mvxd=100) 100 ug/dL 40-160 TOTAL IRON BINDING CAPACITY (BEAKER) (test 289 ug/dL 250-450 pysg=252) IRON % SATURATION (2) (BEAKER) (test suzw=5417) 35 % 20-55 [id number] 12:23:00 Test Item Value Reference Range Comments MAGNESIUM (BEAKER) (test iita=368) 1.7 mg/dL 1.6-2.6 BASIC METABOLIC [id number] 12:23:00 Test Item Value Reference Range Comments SODIUM (BEAKER) (test 142 meq/L 136-145 zyfq=636) POTASSIUM (BEAKER) (test 3.7 meq/L 3.5-5.1 tzmk=373) CHLORIDE (BEAKER) (test 107 meq/L 98-107 uslv=399) CO2 (BEAKER) (test 29 meq/L 22-29 sgjc=402) BLOOD UREA NITROGEN 27 mg/dL 7-21 (BEAKER) (test ewyg=745) CREATININE (BEAKER) (test 1.07 mg/dL 0.57-1.25 euen=468) GLUCOSE RANDOM (BEAKER) 141 mg/dL 70-105 (test imfx=677) CALCIUM (BEAKER) (test 9.0 mg/dL 8.4-10.2 mmpo=766) EGFR (BEAKER) (test 71 mL/min/1.73 sq m ESTIMATED GFR IS NOT guyz=8072) ACCURATE CREATININE CLEARANCE IN PREDICTING GLOMERULAR FILTRATION RATE. ESTIMATED GFR IS NOT APPLICABLE FOR DIALYSIS PATIENTS. HEPATIC FUNCTION [id number] 12:23:00 Test Item Value Reference Range Comments TOTAL PROTEIN (BEAKER) (test glqs=549) 7.5 gm/dL 6.0-8.3 ALBUMIN (BEAKER) (test fidk=3912) 3.7 g/dL 3.5-5.0 BILIRUBIN TOTAL (BEAKER) (test lrme=103) 0.8 mg/dL 0.2-1.2 BILIRUBIN DIRECT (BEAKER) (test pmsd=775) 0.4 mg/dL 0.1-0.5 ALKALINE PHOSPHATASE (BEAKER) (test mlov=658) 131 U/L 40-150 AST (SGOT) (BEAKER) (test syzh=406) 23 U/L 5-34 ALT (SGPT) (BEAKER) (test kjmr=357) 34 U/L 6-55 LACTATE DEHYDROGENASE (LDH)2018-06-21 12:23:00 Test Item Value Reference Range Comments LACTATE DEHYDROGENASE (BEAKER) (test imih=657) 308 U/L 125-220 PROTHROMBIN [id number] 11:59:00 Test Item Value Reference Range Comments PROTIME (BEAKER) (test cghm=362) 23.1 seconds 11.7-14.7 INR (BEAKER) (test ppzl=827) 2.1 <=5.9 RECOMMENDED COUMADIN/WARFARIN INR THERAPY RANGESSTANDARD DOSE: 2.0 - 3.0 Includes: PROPHYLAXIS forvenous thrombosis, systemic embolization; TREATMENT for venous thrombosis and/or pulmonary embolus.HIGH RISK: Target INR is 2.5-3.5 for patients with mechanical heart valves.CBC W/PLT COUNT & AUTO [id number] 11:48:00 Test Item Value Reference Range Comments WHITE BLOOD CELL COUNT (BEAKER) (test pyqd=365) 6.7 K/ L 3.5-10.5 RED BLOOD CELL COUNT (BEAKER) (test wapz=354) 4.38 M/ L 4.63-6.08 HEMOGLOBIN (BEAKER) (test velc=290) 13.5 GM/DL 13.7-17.5 HEMATOCRIT (BEAKER) (test ggsf=078) 39.7 % 40.1-51.0 MEAN CORPUSCULAR VOLUME (BEAKER) (test qrlt=469) 90.6 fL 79.0-92.2 MEAN CORPUSCULAR HEMOGLOBIN (BEAKER) (test 30.8 pg 25.7-32.2 kofg=467) MEAN CORPUSCULAR HEMOGLOBIN CONC (BEAKER) (test 34.0 GM/DL 32.3-36.5 xhev=337) RED CELL DISTRIBUTION WIDTH (BEAKER) (test 13.8 % 11.6-14.4 wadv=985) PLATELET COUNT (BEAKER) (test vcfc=243) 138 K/CU MM 150-450 MEAN PLATELET VOLUME (BEAKER) (test sbuw=484) 10.2 fL 9.4-12.4 NUCLEATED RED BLOOD CELLS (BEAKER) (test 0 /100 WBC 0-0 bvya=056) NEUTROPHILS RELATIVE PERCENT (BEAKER) (test 64 % vnzt=166) LYMPHOCYTES RELATIVE PERCENT (BEAKER) (test 24 % baml=769) MONOCYTES RELATIVE PERCENT (BEAKER) (test 9 % buxm=941) EOSINOPHILS RELATIVE PERCENT (BEAKER) (test 2 % zuih=809) BASOPHILS RELATIVE PERCENT (BEAKER) (test 1 % rclv=661) NEUTROPHILS ABSOLUTE COUNT (BEAKER) (test 4.32 K/ L 1.78-5.38 xxpe=728) LYMPHOCYTES ABSOLUTE COUNT (BEAKER) (test 1.61 K/ L 1.32-3.57 fhek=208) MONOCYTES ABSOLUTE COUNT (BEAKER) (test 0.57 K/ L 0.30-0.82 ucsl=696) EOSINOPHILS ABSOLUTE COUNT (BEAKER) (test 0.14 K/ L 0.04-0.54 xjwe=068) BASOPHILS ABSOLUTE COUNT (BEAKER) (test 0.06 K/ L 0.01-0.08 gmlk=295) IMMATURE GRANULOCYTES-RELATIVE PERCENT (BEAKER) 1 % 0-1 (test ctgx=9171) [id number] 11:01:00 Test Item Value Reference Range Comments FERRITIN (BEAKER) (test wtwg=219) 514 ng/mL 5-275 IRON, TIBC, % SAT. (WITHOUT FERRITIN)2018-04-19 10:47:00 Test Item Value Reference Range Comments IRON (BEAKER) (test umai=519) 135 ug/dL 40-160 TOTAL IRON BINDING CAPACITY (BEAKER) (test 284 ug/dL 250-450 vdpq=774) IRON % SATURATION (2) (BEAKER) (test volv=2558) 48 % 20-55 [id number] 10:46:00 Test Item Value Reference Range Comments MAGNESIUM (BEAKER) (test qxis=860) 2.0 mg/dL 1.6-2.6 BASIC METABOLIC [id number] 10:46:00 Test Item Value Reference Range Comments SODIUM (BEAKER) (test 142 meq/L 136-145 jiah=796) POTASSIUM (BEAKER) (test 4.4 meq/L 3.5-5.1 icfn=787) CHLORIDE (BEAKER) (test 105 meq/L 98-107 qwhs=871) CO2 (BEAKER) (test 28 meq/L 22-29 praw=963) BLOOD UREA NITROGEN 33 mg/dL 7-21 (BEAKER) (test yxmg=254) CREATININE (BEAKER) (test 1.34 mg/dL 0.57-1.25 josk=124) GLUCOSE RANDOM (BEAKER) 76 mg/dL 70-105 (test hduo=633) CALCIUM (BEAKER) (test 9.3 mg/dL 8.4-10.2 qeax=734) EGFR (BEAKER) (test 55 mL/min/1.73 sq m ESTIMATED GFR IS NOT cjof=5447) ACCURATE CREATININE CLEARANCE IN PREDICTING GLOMERULAR FILTRATION RATE. ESTIMATED GFR IS NOT APPLICABLE FOR DIALYSIS PATIENTS. HEPATIC FUNCTION [id number] 10:46:00 Test Item Value Reference Range Comments TOTAL PROTEIN (BEAKER) (test mzno=371) 7.3 gm/dL 6.0-8.3 ALBUMIN (BEAKER) (test pfpo=5436) 3.7 g/dL 3.5-5.0 BILIRUBIN TOTAL (BEAKER) (test pmly=995) 0.9 mg/dL 0.2-1.2 BILIRUBIN DIRECT (BEAKER) (test errb=750) 0.4 mg/dL 0.1-0.5 ALKALINE PHOSPHATASE (BEAKER) (test aovy=484) 134 U/L 40-150 AST (SGOT) (BEAKER) (test ddaq=999) 26 U/L 5-34 ALT (SGPT) (BEAKER) (test dfig=649) 39 U/L 6-55 LACTATE DEHYDROGENASE (LDH)2018-04-19 10:46:00 Test Item Value Reference Range Comments LACTATE DEHYDROGENASE (BEAKER) (test ciob=277) 290 U/L 125-220 PROTHROMBIN [id number] 10:24:00 Test Item Value Reference Range Comments PROTIME (BEAKER) (test telb=464) 22.1 seconds 11.7-14.7 INR (BEAKER) (test rwsg=988) 1.9 <=5.9 RECOMMENDED COUMADIN/WARFARIN INR THERAPY RANGESSTANDARD DOSE: 2.0 - 3.0 Includes: PROPHYLAXIS forvenous thrombosis, systemic embolization; TREATMENT for venous thrombosis and/or pulmonary embolus.HIGH RISK: Target INR is 2.5-3.5 for patients with mechanical heart valves.CBC W/PLT COUNT & AUTO [id number] 10:18:00 Test Item Value Reference Range Comments WHITE BLOOD CELL COUNT (BEAKER) (test chuq=176) 6.7 K/ L 3.5-10.5 RED BLOOD CELL COUNT (BEAKER) (test hcqm=049) 4.70 M/ L 4.63-6.08 HEMOGLOBIN (BEAKER) (test pwzh=706) 13.8 GM/DL 13.7-17.5 HEMATOCRIT (BEAKER) (test fndl=373) 40.6 % 40.1-51.0 MEAN CORPUSCULAR VOLUME (BEAKER) (test vpga=859) 86.4 fL 79.0-92.2 MEAN CORPUSCULAR HEMOGLOBIN (BEAKER) (test 29.4 pg 25.7-32.2 uusl=529) MEAN CORPUSCULAR HEMOGLOBIN CONC (BEAKER) (test 34.0 GM/DL 32.3-36.5 gbgk=964) RED CELL DISTRIBUTION WIDTH (BEAKER) (test 13.6 % 11.6-14.4 otiu=715) PLATELET COUNT (BEAKER) (test gxdi=163) 151 K/CU MM 150-450 MEAN PLATELET VOLUME (BEAKER) (test txti=334) 10.3 fL 9.4-12.4 NUCLEATED RED BLOOD CELLS (BEAKER) (test 0 /100 WBC 0-0 mqcw=044) NEUTROPHILS RELATIVE PERCENT (BEAKER) (test 63 % qucf=975) LYMPHOCYTES RELATIVE PERCENT (BEAKER) (test 26 % sbdj=614) MONOCYTES RELATIVE PERCENT (BEAKER) (test 7 % eczy=880) EOSINOPHILS RELATIVE PERCENT (BEAKER) (test 2 % wnbh=105) BASOPHILS RELATIVE PERCENT (BEAKER) (test 1 % vfxv=396) NEUTROPHILS ABSOLUTE COUNT (BEAKER) (test 4.22 K/ L 1.78-5.38 zvoc=389) LYMPHOCYTES ABSOLUTE COUNT (BEAKER) (test 1.75 K/ L 1.32-3.57 qldg=015) MONOCYTES ABSOLUTE COUNT (BEAKER) (test 0.50 K/ L 0.30-0.82 psvt=869) EOSINOPHILS ABSOLUTE COUNT (BEAKER) (test 0.11 K/ L 0.04-0.54 zfbr=589) BASOPHILS ABSOLUTE COUNT (BEAKER) (test 0.07 K/ L 0.01-0.08 sqnu=699) IMMATURE GRANULOCYTES-RELATIVE PERCENT (BEAKER) 1 % 0-1 (test irbe=0494) [id number] 10:56:00 Test Item Value Reference Range Comments FERRITIN (BEAKER) (test huae=640) 236 ng/mL 5-275 [id number] 10:48:00 Test Item Value Reference Range Comments MAGNESIUM (BEAKER) (test hebf=779) 1.8 mg/dL 1.6-2.6 BASIC METABOLIC [id number] 10:48:00 Test Item Value Reference Range Comments SODIUM (BEAKER) (test 140 meq/L 136-145 enbx=351) POTASSIUM (BEAKER) (test 3.8 meq/L 3.5-5.1 xvbl=424) CHLORIDE (BEAKER) (test 102 meq/L 98-107 zydi=571) CO2 (BEAKER) (test 28 meq/L 22-29 ujwd=819) BLOOD UREA NITROGEN 26 mg/dL 7-21 (BEAKER) (test bypb=445) CREATININE (BEAKER) (test 1.12 mg/dL 0.57-1.25 saal=048) GLUCOSE RANDOM (BEAKER) 137 mg/dL 70-105 (test jizn=151) CALCIUM (BEAKER) (test 8.9 mg/dL 8.4-10.2 uzzr=364) EGFR (BEAKER) (test 68 mL/min/1.73 sq m ESTIMATED GFR IS NOT bsqs=5910) ACCURATE CREATININE CLEARANCE IN PREDICTING GLOMERULAR FILTRATION RATE. ESTIMATED GFR IS NOT APPLICABLE FOR DIALYSIS PATIENTS. HEPATIC FUNCTION [id number] 10:48:00 Test Item Value Reference Range Comments TOTAL PROTEIN (BEAKER) (test gfsz=734) 7.5 gm/dL 6.0-8.3 ALBUMIN (BEAKER) (test ttst=1577) 3.7 g/dL 3.5-5.0 BILIRUBIN TOTAL (BEAKER) (test ixja=398) 0.6 mg/dL 0.2-1.2 BILIRUBIN DIRECT (BEAKER) (test kbed=062) 0.3 mg/dL 0.1-0.5 ALKALINE PHOSPHATASE (BEAKER) (test zxbu=265) 142 U/L 40-150 AST (SGOT) (BEAKER) (test qrgy=072) 25 U/L 5-34 ALT (SGPT) (BEAKER) (test vdmn=365) 46 U/L 6-55 LACTATE DEHYDROGENASE (LDH)2018-03-01 10:48:00 Test Item Value Reference Range Comments LACTATE DEHYDROGENASE (BEAKER) (test hdkj=063) 296 U/L 125-220 [id number] 10:34:00 Test Item Value Reference Range Comments TRANSFERRIN (BEAKER) (test cbdh=682) 248 mg/dL 174-382 [id number] 10:34:00 Test Item Value Reference Range Comments PREALBUMIN (BEAKER) (test ewuu=054) 18 mg/dL 14-45 IRON, TIBC, % SAT. (WITHOUT FERRITIN)2018-03-01 10:34:00 Test Item Value Reference Range Comments IRON (BEAKER) (test ubnd=629) 90 ug/dL 40-160 TOTAL IRON BINDING CAPACITY (BEAKER) (test 310 ug/dL 250-450 npjn=778) IRON % SATURATION (2) (BEAKER) (test qvsc=5981) 29 % 20-55 PLASMA FREE [id number] 10:28:00 Test Item Value Reference Range Comments HEMOGLOBIN PLASMA (BEAKER) (test mxjl=5424) 80.0 mg/dl 0.0-30.0 PROTHROMBIN [id number] 10:22:00 Test Item Value Reference Range Comments PROTIME (BEAKER) (test jnyw=630) 24.3 seconds 11.7-14.7 INR (BEAKER) (test rktl=744) 2.2 <=5.9 RECOMMENDED COUMADIN/WARFARIN INR THERAPY RANGESSTANDARD DOSE: 2.0 - 3.0 Includes: PROPHYLAXIS forvenous thrombosis, systemic embolization; TREATMENT for venous thrombosis and/or pulmonary embolus.HIGH RISK: Target INR is 2.5-3.5 for patients with mechanical heart valves.CBC W/PLT COUNT & AUTO [id number] 10:20:00 Test Item Value Reference Range Comments WHITE BLOOD CELL COUNT (BEAKER) (test iiqn=084) 6.7 K/ L 3.5-10.5 RED BLOOD CELL COUNT (BEAKER) (test lqle=963) 4.91 M/ L 4.63-6.08 HEMOGLOBIN (BEAKER) (test jnwh=333) 13.8 GM/DL 13.7-17.5 HEMATOCRIT (BEAKER) (test dpee=473) 41.3 % 40.1-51.0 MEAN CORPUSCULAR VOLUME (BEAKER) (test amgv=834) 84.1 fL 79.0-92.2 MEAN CORPUSCULAR HEMOGLOBIN (BEAKER) (test 28.1 pg 25.7-32.2 qepn=560) MEAN CORPUSCULAR HEMOGLOBIN CONC (BEAKER) (test 33.4 GM/DL 32.3-36.5 jajx=474) RED CELL DISTRIBUTION WIDTH (BEAKER) (test 15.3 % 11.6-14.4 ctnb=287) PLATELET COUNT (BEAKER) (test cudz=626) 166 K/CU MM 150-450 MEAN PLATELET VOLUME (BEAKER) (test deqh=663) 10.1 fL 9.4-12.4 NUCLEATED RED BLOOD CELLS (BEAKER) (test 0 /100 WBC 0-0 hjji=334) NEUTROPHILS RELATIVE PERCENT (BEAKER) (test 62 % iqts=415) LYMPHOCYTES RELATIVE PERCENT (BEAKER) (test 28 % kikf=348) MONOCYTES RELATIVE PERCENT (BEAKER) (test 7 % etaz=757) EOSINOPHILS RELATIVE PERCENT (BEAKER) (test 2 % rxub=757) BASOPHILS RELATIVE PERCENT (BEAKER) (test 1 % ooiz=307) NEUTROPHILS ABSOLUTE COUNT (BEAKER) (test 4.12 K/ L 1.78-5.38 jjfy=645) LYMPHOCYTES ABSOLUTE COUNT (BEAKER) (test 1.91 K/ L 1.32-3.57 mqga=911) MONOCYTES ABSOLUTE COUNT (BEAKER) (test 0.46 K/ L 0.30-0.82 wlhm=628) EOSINOPHILS ABSOLUTE COUNT (BEAKER) (test 0.13 K/ L 0.04-0.54 vxtm=880) BASOPHILS ABSOLUTE COUNT (BEAKER) (test 0.07 K/ L 0.01-0.08 hgfd=658) IMMATURE GRANULOCYTES-RELATIVE PERCENT (BEAKER) 0 % 0-1 (test avvx=9554) [id number] 10:33:00 Test Item Value Reference Range Comments MAGNESIUM (BEAKER) (test kyog=582) 1.7 mg/dL 1.6-2.6 BASIC METABOLIC [id number] 10:33:00 Test Item Value Reference Range Comments SODIUM (BEAKER) (test 139 meq/L 136-145 ssgz=593) POTASSIUM (BEAKER) (test 4.4 meq/L 3.5-5.1 rczg=879) CHLORIDE (BEAKER) (test 98 meq/L 98-107 izbk=555) CO2 (BEAKER) (test 34 meq/L 22-29 uoiw=202) BLOOD UREA NITROGEN 20 mg/dL 7-21 (BEAKER) (test wxct=306) CREATININE (BEAKER) (test 1.22 mg/dL 0.57-1.25 rkrh=241) GLUCOSE RANDOM (BEAKER) 267 mg/dL 70-105 (test jbyq=796) CALCIUM (BEAKER) (test 9.1 mg/dL 8.4-10.2 xfyy=226) EGFR (BEAKER) (test 62 mL/min/1.73 sq m ESTIMATED GFR IS NOT drtq=7317) ACCURATE CREATININE CLEARANCE IN PREDICTING GLOMERULAR FILTRATION RATE. ESTIMATED GFR IS NOT APPLICABLE FOR DIALYSIS PATIENTS. HEPATIC FUNCTION [id number] 10:33:00 Test Item Value Reference Range Comments TOTAL PROTEIN (BEAKER) (test kejd=197) 7.6 gm/dL 6.0-8.3 ALBUMIN (BEAKER) (test deio=9676) 3.6 g/dL 3.5-5.0 BILIRUBIN TOTAL (BEAKER) (test lasc=928) 0.8 mg/dL 0.2-1.2 BILIRUBIN DIRECT (BEAKER) (test umuq=367) 0.4 mg/dL 0.1-0.5 ALKALINE PHOSPHATASE (BEAKER) (test mbjx=087) 142 U/L 40-150 AST (SGOT) (BEAKER) (test tzqd=198) 29 U/L 5-34 ALT (SGPT) (BEAKER) (test rtio=049) 37 U/L 6-55 LACTATE DEHYDROGENASE (LDH)2018-01-11 10:33:00 Test Item Value Reference Range Comments LACTATE DEHYDROGENASE (BEAKER) (test bwon=713) 308 U/L 125-220 [id number] 10:29:00 Test Item Value Reference Range Comments PREALBUMIN (BEAKER) (test wwdk=396) 16 mg/dL 14-45 PLASMA FREE [id number] 10:10:00 Test Item Value Reference Range Comments HEMOGLOBIN PLASMA (BEAKER) (test lktj=3872) 30.0 mg/dl 0.0-30.0 PROTHROMBIN [id number] 09:45:00 Test Item Value Reference Range Comments PROTIME (BEAKER) (test qdxm=419) 25.0 seconds 11.7-14.7 INR (BEAKER) (test gnpe=956) 2.3 <=5.9 RECOMMENDED COUMADIN/WARFARIN INR THERAPY RANGESSTANDARD DOSE: 2.0 - 3.0 Includes: PROPHYLAXIS forvenous thrombosis, systemic embolization; TREATMENT for venous thrombosis and/or pulmonary embolus.HIGH RISK: Target INR is 2.5-3.5 for patients with mechanical heart valves.CBC W/PLT COUNT & AUTO [id number] 09:35:00 Test Item Value Reference Range Comments WHITE BLOOD CELL COUNT (BEAKER) (test ticp=149) 5.9 K/ L 3.5-10.5 RED BLOOD CELL COUNT (BEAKER) (test nxph=574) 4.80 M/ L 4.63-6.08 HEMOGLOBIN (BEAKER) (test xctd=458) 13.0 GM/DL 13.7-17.5 HEMATOCRIT (BEAKER) (test lfyv=784) 40.9 % 40.1-51.0 MEAN CORPUSCULAR VOLUME (BEAKER) (test ojmm=931) 85.2 fL 79.0-92.2 MEAN CORPUSCULAR HEMOGLOBIN (BEAKER) (test 27.1 pg 25.7-32.2 mloy=677) MEAN CORPUSCULAR HEMOGLOBIN CONC (BEAKER) (test 31.8 GM/DL 32.3-36.5 povn=053) RED CELL DISTRIBUTION WIDTH (BEAKER) (test 18.1 % 11.6-14.4 cjfg=538) PLATELET COUNT (BEAKER) (test rfep=675) 144 K/CU MM 150-450 MEAN PLATELET VOLUME (BEAKER) (test zseh=965) 10.1 fL 9.4-12.4 NUCLEATED RED BLOOD CELLS (BEAKER) (test 0 /100 WBC 0-0 bagl=224) NEUTROPHILS RELATIVE PERCENT (BEAKER) (test 67 % wmyj=425) LYMPHOCYTES RELATIVE PERCENT (BEAKER) (test 22 % opya=573) MONOCYTES RELATIVE PERCENT (BEAKER) (test 8 % fijb=282) EOSINOPHILS RELATIVE PERCENT (BEAKER) (test 2 % wwwo=167) BASOPHILS RELATIVE PERCENT (BEAKER) (test 1 % rxzw=803) NEUTROPHILS ABSOLUTE COUNT (BEAKER) (test 3.97 K/ L 1.78-5.38 uuxf=711) LYMPHOCYTES ABSOLUTE COUNT (BEAKER) (test 1.32 K/ L 1.32-3.57 rkoj=420) MONOCYTES ABSOLUTE COUNT (BEAKER) (test 0.45 K/ L 0.30-0.82 xyxt=659) EOSINOPHILS ABSOLUTE COUNT (BEAKER) (test 0.11 K/ L 0.04-0.54 kxrc=064) BASOPHILS ABSOLUTE COUNT (BEAKER) (test 0.05 K/ L 0.01-0.08 oivn=795) IMMATURE GRANULOCYTES-RELATIVE PERCENT (BEAKER) 0 % 0-1 (test azvr=0275) LACTATE DEHYDROGENASE (LDH)2017-12-01 15:16:00 Test Item Value Reference Range Comments LACTATE DEHYDROGENASE (BEAKER) (test ugkn=475) 269 U/L 125-220 POCT-GLUCOSE [id number] 12:13:00 Test Item Value Reference Range Comments POC-GLUCOSE METER (BEAKER) 270 mg/dL 70-110 TESTED AT [address] (test nggh=7453) [place] [id number] POCT-GLUCOSE [id number] 08:13:00 Test Item Value Reference Range Comments POC-GLUCOSE METER (BEAKER) 188 mg/dL 70-110 TESTED AT [address] (test yvdt=0721) [place] [id number] BASIC METABOLIC [id number] 07:20:00 Test Item Value Reference Range Comments SODIUM (BEAKER) (test 136 meq/L 136-145 sfrx=979) POTASSIUM (BEAKER) (test 4.3 meq/L 3.5-5.1 dqav=330) CHLORIDE (BEAKER) (test 102 meq/L 98-107 qlmc=250) CO2 (BEAKER) (test 28 meq/L 22-29 qkjn=295) BLOOD UREA NITROGEN 21 mg/dL 7-21 (BEAKER) (test zold=363) CREATININE (BEAKER) (test 0.99 mg/dL 0.57-1.25 tzey=398) GLUCOSE RANDOM (BEAKER) 172 mg/dL 70-105 (test ihfv=673) CALCIUM (BEAKER) (test 8.7 mg/dL 8.4-10.2 dcfr=215) EGFR (BEAKER) (test 78 mL/min/1.73 sq m ESTIMATED GFR IS NOT ckfb=2998) ACCURATE CREATININE CLEARANCE IN PREDICTING GLOMERULAR FILTRATION RATE. ESTIMATED GFR IS NOT APPLICABLE FOR DIALYSIS PATIENTS. [id number] 06:57:00 Test Item Value Reference Range Comments PARTIAL THROMBOPLASTIN TIME (BEAKER) (test 75.9 seconds 22.5-36.0 gqtj=081) PROTHROMBIN [id number] 06:56:00 Test Item Value Reference Range Comments PROTIME (BEAKER) (test mfvh=386) 20.9 seconds 11.7-14.7 INR (BEAKER) (test nejx=463) 1.8 <=5.9 RECOMMENDED COUMADIN/WARFARIN INR THERAPY RANGESSTANDARD DOSE: 2.0 - 3.0 Includes: PROPHYLAXIS forvenous thrombosis, systemic embolization; TREATMENT for venous thrombosis and/or pulmonary embolus.HIGH RISK: Target INR is 2.5-3.5 for patients with mechanical heart valves.POCT-GLUCOSE [id number] 21:26:00 Test Item Value Reference Range Comments POC-GLUCOSE METER (BEAKER) 201 mg/dL 70-110 TESTED AT [place] [address] [facility] (test xhjh=7873) [facility] [address] POCT-GLUCOSE [id number] 17:22:00 Test Item Value Reference Range Comments POC-GLUCOSE METER (BEAKER) 342 mg/dL 70-110 Notified KENZIE BARCLAY/TESTED AT [facility] (test bxgk=5001) [facility] [address] POCT-GLUCOSE [id number] 09:17:00 Test Item Value Reference Range Comments POC-GLUCOSE METER (BEAKER) 280 mg/dL 70-110 [address] (test sequ=[address]990) [facility] [address] BASIC METABOLIC [id number] 07:13:00 Test Item Value Reference Range Comments SODIUM (BEAKER) (test 139 meq/L 136-145 yzgh=422) POTASSIUM (BEAKER) (test 4.1 meq/L 3.5-5.1 siof=736) CHLORIDE (BEAKER) (test 105 meq/L 98-107 suip=943) CO2 (BEAKER) (test 27 meq/L 22-29 ehqu=083) BLOOD UREA NITROGEN 22 mg/dL 7-21 (BEAKER) (test aeif=555) CREATININE (BEAKER) (test 1.01 mg/dL 0.57-1.25 qvqt=992) GLUCOSE RANDOM (BEAKER) 301 mg/dL 70-105 (test vywx=929) CALCIUM (BEAKER) (test 8.9 mg/dL 8.4-10.2 gxzl=969) EGFR (BEAKER) (test 77 mL/min/1.73 sq m ESTIMATED GFR IS NOT pxev=5601) ACCURATE CREATININE CLEARANCE IN PREDICTING GLOMERULAR FILTRATION RATE. ESTIMATED GFR IS NOT APPLICABLE FOR DIALYSIS PATIENTS. [id number] 06:59:00 Test Item Value Reference Range Comments PARTIAL THROMBOPLASTIN TIME (BEAKER) (test 70.0 seconds 22.5-36.0 qron=327) PROTHROMBIN [id number] 06:58:00 Test Item Value Reference Range Comments PROTIME (BEAKER) (test pqfj=385) 19.4 seconds 11.7-14.7 INR (BEAKER) (test lcxu=500) 1.6 <=5.9 RECOMMENDED COUMADIN/WARFARIN INR THERAPY RANGESSTANDARD DOSE: 2.0 - 3.0 Includes: PROPHYLAXIS forvenous thrombosis, systemic embolization; TREATMENT for venous thrombosis and/or pulmonary embolus.HIGH RISK: Target INR is 2.5-3.5 for patients with mechanical heart valves.CBC (HEMOGRAM ONLY)2017-11-30 06:58:00 Test Item Value Reference Range Comments WHITE BLOOD CELL COUNT (BEAKER) (test upsd=115) 7.1 K/ L 3.5-10.5 RED BLOOD CELL COUNT (BEAKER) (test aogl=280) 4.15 M/ L 4.63-6.08 HEMOGLOBIN (BEAKER) (test xzvc=669) 10.1 GM/DL 13.7-17.5 HEMATOCRIT (BEAKER) (test zoxk=227) 33.8 % 40.1-51.0 MEAN CORPUSCULAR VOLUME (BEAKER) (test csvd=205) 81.4 fL 79.0-92.2 MEAN CORPUSCULAR HEMOGLOBIN (BEAKER) (test 24.3 pg 25.7-32.2 qtpn=753) MEAN CORPUSCULAR HEMOGLOBIN CONC (BEAKER) (test 29.9 GM/DL 32.3-36.5 nzck=256) RED CELL DISTRIBUTION WIDTH (BEAKER) (test 18.7 % 11.6-14.4 kywn=729) PLATELET COUNT (BEAKER) (test drxj=266) 146 K/CU MM 150-450 MEAN PLATELET VOLUME (BEAKER) (test xmbf=693) 10.3 fL 9.4-12.4 NUCLEATED RED BLOOD CELLS (BEAKER) (test 0 /100 WBC 0-0 pavn=447) POCT-GLUCOSE [id number] 22:52:00 Test Item Value Reference Range Comments POC-GLUCOSE METER (BEAKER) 267 mg/dL 70-110 TESTED AT [address] (test ayty=0357) [place] [id number] POCT-GLUCOSE [id number] 17:28:00 Test Item Value Reference Range Comments POC-GLUCOSE METER (BEAKER) 236 mg/dL 70-110 TESTED AT [address] (test egrl=6218) [place] [id number] POCT-GLUCOSE [id number] 12:11:00 Test Item Value Reference Range Comments POC-GLUCOSE METER (BEAKER) 365 mg/dL 70-110 Notified KENZIE BARCLAY/TESTED AT [facility] (test ohao=8273) [address] [place] [address] CBC (HEMOGRAM ONLY)2017-11-29 08:00:00 Test Item Value Reference Range Comments WHITE BLOOD CELL COUNT (BEAKER) (test oatl=513) 7.3 K/ L 3.5-10.5 RED BLOOD CELL COUNT (BEAKER) (test kbsi=906) 4.18 M/ L 4.63-6.08 HEMOGLOBIN (BEAKER) (test pfbm=263) 9.9 GM/DL 13.7-17.5 HEMATOCRIT (BEAKER) (test ertx=821) 33.8 % 40.1-51.0 MEAN CORPUSCULAR VOLUME (BEAKER) (test eydm=847) 80.9 fL 79.0-92.2 MEAN CORPUSCULAR HEMOGLOBIN (BEAKER) (test 23.7 pg 25.7-32.2 depg=914) MEAN CORPUSCULAR HEMOGLOBIN CONC (BEAKER) (test 29.3 GM/DL 32.3-36.5 qdtv=693) RED CELL DISTRIBUTION WIDTH (BEAKER) (test 18.3 % 11.6-14.4 ehck=566) PLATELET COUNT (BEAKER) (test ljgh=150) 163 K/CU MM 150-450 MEAN PLATELET VOLUME (BEAKER) (test ainv=114) 10.3 fL 9.4-12.4 NUCLEATED RED BLOOD CELLS (BEAKER) (test 1 /100 WBC 0-0 gpoo=420) POCT-GLUCOSE [id number] 07:56:00 Test Item Value Reference Range Comments POC-GLUCOSE METER (BEAKER) 176 mg/dL 70-110 TESTED AT [facility] [address] [place] [address] (test ofgu=5315) [facility] [address] BASIC METABOLIC [id number] 05:49:00 Test Item Value Reference Range Comments SODIUM (BEAKER) (test 140 meq/L 136-145 cazp=396) POTASSIUM (BEAKER) (test 4.1 meq/L 3.5-5.1 qpdj=957) CHLORIDE (BEAKER) (test 103 meq/L 98-107 uxaa=453) CO2 (BEAKER) (test 29 meq/L 22-29 lsys=783) BLOOD UREA NITROGEN 22 mg/dL 7-21 (BEAKER) (test pecw=737) CREATININE (BEAKER) (test 1.12 mg/dL 0.57-1.25 cksj=812) GLUCOSE RANDOM (BEAKER) 202 mg/dL 70-105 (test qecx=915) CALCIUM (BEAKER) (test 8.5 mg/dL 8.4-10.2 vwda=866) EGFR (BEAKER) (test 68 mL/min/1.73 sq m ESTIMATED GFR IS NOT ffhj=2787) ACCURATE CREATININE CLEARANCE IN PREDICTING GLOMERULAR FILTRATION RATE. ESTIMATED GFR IS NOT APPLICABLE FOR DIALYSIS PATIENTS. [id number] 05:34:00 Test Item Value Reference Range Comments PARTIAL THROMBOPLASTIN TIME (BEAKER) (test 90.9 seconds 22.5-36.0 jpbm=924) PROTHROMBIN [id number] 05:32:00 Test Item Value Reference Range Comments PROTIME (BEAKER) (test upkk=881) 19.8 seconds 11.7-14.7 INR (BEAKER) (test dpuk=779) 1.7 <=5.9 RECOMMENDED COUMADIN/WARFARIN INR THERAPY RANGESSTANDARD DOSE: 2.0 - 3.0 Includes: PROPHYLAXIS forvenous thrombosis, systemic embolization; TREATMENT for venous thrombosis and/or pulmonary embolus.HIGH RISK: Target INR is 2.5-3.5 for patients with mechanical heart valves.POCT-GLUCOSE [id number] 21:35:00 Test Item Value Reference Range Comments POC-GLUCOSE METER (BEAKER) 218 mg/dL 70-110 TESTED AT [address] (test lfrd=2215) [place] [address] POCT-GLUCOSE [id number] 16:50:00 Test Item Value Reference Range Comments POC-GLUCOSE METER (BEAKER) 199 mg/dL 70-110 TESTED AT [address] (test vhqa=1277) [place] [address] POCT-GLUCOSE [id number] 12:06:00 Test Item Value Reference Range Comments POC-GLUCOSE METER (BEAKER) 208 mg/dL 70-110 TESTED AT [address] (test ksqx=3778) [place] [address] POCT-GLUCOSE [id number] 07:57:00 Test Item Value Reference Range Comments POC-GLUCOSE METER (BEAKER) 216 mg/dL 70-110 TESTED AT [address] (test swch=1919) [place] [address] CBC (HEMOGRAM ONLY)2017-11-28 06:50:00 Test Item Value Reference Range Comments WHITE BLOOD CELL COUNT (BEAKER) (test lpzl=734) 7.2 K/ L 3.5-10.5 RED BLOOD CELL COUNT (BEAKER) (test yjto=921) 3.98 M/ L 4.63-6.08 HEMOGLOBIN (BEAKER) (test znnm=184) 9.6 GM/DL 13.7-17.5 HEMATOCRIT (BEAKER) (test vofi=977) 31.5 % 40.1-51.0 MEAN CORPUSCULAR VOLUME (BEAKER) (test fzkd=472) 79.1 fL 79.0-92.2 MEAN CORPUSCULAR HEMOGLOBIN (BEAKER) (test 24.1 pg 25.7-32.2 bujb=183) MEAN CORPUSCULAR HEMOGLOBIN CONC (BEAKER) (test 30.5 GM/DL 32.3-36.5 krve=179) RED CELL DISTRIBUTION WIDTH (BEAKER) (test 16.8 % 11.6-14.4 mchu=178) PLATELET COUNT (BEAKER) (test djxe=810) 176 K/CU MM 150-450 MEAN PLATELET VOLUME (BEAKER) (test vsdb=164) 10.5 fL 9.4-12.4 NUCLEATED RED BLOOD CELLS (BEAKER) (test 1 /100 WBC 0-0 fatz=155) BASIC METABOLIC [id number] 05:44:00 Test Item Value Reference Range Comments SODIUM (BEAKER) (test 140 meq/L 136-145 qkei=530) POTASSIUM (BEAKER) (test 3.5 meq/L 3.5-5.1 sbrm=270) CHLORIDE (BEAKER) (test 103 meq/L 98-107 yprc=829) CO2 (BEAKER) (test 28 meq/L 22-29 agsx=285) BLOOD UREA NITROGEN 20 mg/dL 7-21 (BEAKER) (test wpwo=877) CREATININE (BEAKER) (test 0.98 mg/dL 0.57-1.25 bhxb=686) GLUCOSE RANDOM (BEAKER) 239 mg/dL 70-105 (test csmp=190) CALCIUM (BEAKER) (test 8.2 mg/dL 8.4-10.2 dcys=616) EGFR (BEAKER) (test 79 mL/min/1.73 sq m ESTIMATED GFR IS NOT tsra=5892) ACCURATE CREATININE CLEARANCE IN PREDICTING GLOMERULAR FILTRATION RATE. ESTIMATED GFR IS NOT APPLICABLE FOR DIALYSIS PATIENTS. [id number] 05:42:00 Test Item Value Reference Range Comments PARTIAL THROMBOPLASTIN TIME (BEAKER) (test 88.4 seconds 22.5-36.0 rkpv=290) PROTHROMBIN [id number] 05:41:00 Test Item Value Reference Range Comments PROTIME (BEAKER) (test dfzk=900) 17.8 seconds 11.7-14.7 INR (BEAKER) (test dqqa=486) 1.5 <=5.9 RECOMMENDED COUMADIN/WARFARIN INR THERAPY RANGESSTANDARD DOSE: 2.0 - 3.0 Includes: PROPHYLAXIS forvenous thrombosis, systemic embolization; TREATMENT for venous thrombosis and/or pulmonary embolus.HIGH RISK: Target INR is 2.5-3.5 for patients with mechanical heart valves.[id number] 23:10:00 Test Item Value Reference Range Comments PARTIAL THROMBOPLASTIN TIME (BEAKER) (test 72.0 seconds 22.5-36.0 kdvc=173) POCT-GLUCOSE [id number] 21:24:00 Test Item Value Reference Range Comments POC-GLUCOSE METER (BEAKER) 244 mg/dL 70-110 TESTED AT [address] (test wqhf=5977) [place] [address] POCT-GLUCOSE [id number] 17:33:00 Test Item Value Reference Range Comments POC-GLUCOSE METER (BEAKER) 119 mg/dL 70-110 TESTED AT [address] (test njtf=6469) [place] [address] [id number] 16:23:00 Test Item Value Reference Range Comments PARTIAL THROMBOPLASTIN TIME (BEAKER) (test 54.0 seconds 22.5-36.0 hcfz=115) [id number] 13:58:00 Test Item Value Reference Range Comments PARTIAL THROMBOPLASTIN TIME (BEAKER) (test 122.2 seconds 22.5-36.0 zuqh=278) CBC (HEMOGRAM ONLY)2017-11-27 13:51:00 Test Item Value Reference Range Comments WHITE BLOOD CELL COUNT (BEAKER) (test podi=823) 7.1 K/ L 3.5-10.5 RED BLOOD CELL COUNT (BEAKER) (test xjlu=832) 4.00 M/ L 4.63-6.08 HEMOGLOBIN (BEAKER) (test brtm=868) 9.4 GM/DL 13.7-17.5 HEMATOCRIT (BEAKER) (test pzqa=684) 31.2 % 40.1-51.0 MEAN CORPUSCULAR VOLUME (BEAKER) (test rfcb=147) 78.0 fL 79.0-92.2 MEAN CORPUSCULAR HEMOGLOBIN (BEAKER) (test 23.5 pg 25.7-32.2 dxbz=764) MEAN CORPUSCULAR HEMOGLOBIN CONC (BEAKER) (test 30.1 GM/DL 32.3-36.5 ukhw=575) RED CELL DISTRIBUTION WIDTH (BEAKER) (test 16.2 % 11.6-14.4 smuj=117) PLATELET COUNT (BEAKER) (test qwim=258) 176 K/CU MM 150-450 MEAN PLATELET VOLUME (BEAKER) (test fzhx=072) 10.6 fL 9.4-12.4 NUCLEATED RED BLOOD CELLS (BEAKER) (test 1 /100 WBC 0-0 gums=984) POCT-GLUCOSE [id number] 12:29:00 Test Item Value Reference Range Comments POC-GLUCOSE METER (BEAKER) 224 mg/dL 70-110 TESTED AT [address] (test kpdq=7261) [place] [address] HEMOGLOBIN [id number] 10:32:00 Test Item Value Reference Range Comments HEMOGLOBIN A1C (BEAKER) (test bncl=872) 7.0 % 4.3-6.1 POCT-GLUCOSE [id number] 08:37:00 Test Item Value Reference Range Comments POC-GLUCOSE METER (BEAKER) 262 mg/dL 70-110 TESTED AT [address] (test bytd=7624) [place] [id number] BASIC METABOLIC [id number] 06:37:00 Test Item Value Reference Range Comments SODIUM (BEAKER) (test 139 meq/L 136-145 dkhl=715) POTASSIUM (BEAKER) (test 3.8 meq/L 3.5-5.1 uhql=051) CHLORIDE (BEAKER) (test 103 meq/L 98-107 zemw=639) CO2 (BEAKER) (test 27 meq/L 22-29 awgo=801) BLOOD UREA NITROGEN 24 mg/dL 7-21 (BEAKER) (test cbbl=141) CREATININE (BEAKER) (test 1.28 mg/dL 0.57-1.25 rlil=964) GLUCOSE RANDOM (BEAKER) 280 mg/dL 70-105 (test uhan=073) CALCIUM (BEAKER) (test 8.6 mg/dL 8.4-10.2 iole=373) EGFR (BEAKER) (test 58 mL/min/1.73 sq m ESTIMATED GFR IS NOT wzmv=7759) ACCURATE CREATININE CLEARANCE IN PREDICTING GLOMERULAR FILTRATION RATE. ESTIMATED GFR IS NOT APPLICABLE FOR DIALYSIS PATIENTS. [id number] 06:07:00 Test Item Value Reference Range Comments PARTIAL THROMBOPLASTIN TIME (BEAKER) (test 110.2 seconds 22.5-36.0 brfp=736) PROTHROMBIN TIME/[id number] 05:42:00 Test Item Value Reference Range Comments PROTIME (BEAKER) (test jklt=550) 15.4 seconds 11.7-14.7 INR (BEAKER) (test abhm=465) 1.2 <=5.9 RECOMMENDED COUMADIN/WARFARIN INR THERAPY RANGESSTANDARD DOSE: 2.0 - 3.0 Includes: PROPHYLAXIS forvenous thrombosis, systemic embolization; TREATMENT for venous thrombosis and/or pulmonary embolus.HIGH RISK: Target INR is 2.5-3.5 for patients with mechanical heart valves.[id number] 23:05:00 Test Item Value Reference Range Comments PARTIAL THROMBOPLASTIN TIME (BEAKER) (test 90.2 seconds 22.5-36.0 obhe=905) POCT-GLUCOSE [id number] 21:36:00 Test Item Value Reference Range Comments POC-GLUCOSE METER (BEAKER) 165 mg/dL 70-110 TESTED AT [address] (test sffu=0206) [place] [address] [id number] 17:31:00 Test Item Value Reference Range Comments PARTIAL THROMBOPLASTIN TIME (BEAKER) (test 81.4 seconds 22.5-36.0 zkbf=116) POCT-GLUCOSE [id number] 16:47:00 Test Item Value Reference Range Comments POC-GLUCOSE METER (BEAKER) 101 mg/dL 70-110 TESTED AT [address] (test lkqj=7158) [place] [address] POCT-GLUCOSE [id number] 11:52:00 Test Item Value Reference Range Comments POC-GLUCOSE METER (BEAKER) 97 mg/dL 70-110 TESTED AT [address] (test lpqb=1191) [place] [address] [id number] 08:26:00 Test Item Value Reference Range Comments LIPASE (BEAKER) (test gxtk=898) 31 U/L 8-78 BASIC METABOLIC [id number] 08:26:00 Test Item Value Reference Range Comments SODIUM (BEAKER) (test 138 meq/L 136-145 dwfc=447) POTASSIUM (BEAKER) (test 3.5 meq/L 3.5-5.1 dvtl=174) CHLORIDE (BEAKER) (test 102 meq/L 98-107 fako=867) CO2 (BEAKER) (test 27 meq/L 22-29 kxjp=818) BLOOD UREA NITROGEN 18 mg/dL 7-21 (BEAKER) (test oonx=511) CREATININE (BEAKER) (test 0.97 mg/dL 0.57-1.25 fogt=413) GLUCOSE RANDOM (BEAKER) 176 mg/dL 70-105 (test zomo=224) CALCIUM (BEAKER) (test 8.8 mg/dL 8.4-10.2 uowa=058) EGFR (BEAKER) (test 80 mL/min/1.73 sq m ESTIMATED GFR IS NOT xukd=7759) ACCURATE CREATININE CLEARANCE IN PREDICTING GLOMERULAR FILTRATION RATE. ESTIMATED GFR IS NOT APPLICABLE FOR DIALYSIS PATIENTS. HEPATIC FUNCTION [id number] 08:26:00 Test Item Value Reference Range Comments TOTAL PROTEIN (BEAKER) (test khly=737) 6.7 gm/dL 6.0-8.3 ALBUMIN (BEAKER) (test hljd=7181) 3.2 g/dL 3.5-5.0 BILIRUBIN TOTAL (BEAKER) (test jtds=483) 0.6 mg/dL 0.2-1.2 BILIRUBIN DIRECT (BEAKER) (test mygn=463) 0.2 mg/dL 0.1-0.5 ALKALINE PHOSPHATASE (BEAKER) (test xtik=728) 95 U/L 40-150 AST (SGOT) (BEAKER) (test honc=033) 22 U/L 5-34 ALT (SGPT) (BEAKER) (test vmeu=177) 23 U/L 6-55 POCT-GLUCOSE [id number] 08:11:00 Test Item Value Reference Range Comments POC-GLUCOSE METER (BEAKER) 198 mg/dL 70-110 TESTED AT [facility] [address] [facility] (test vpbu=7601) [facility] [address] [id number] 07:29:00 Test Item Value Reference Range Comments PARTIAL THROMBOPLASTIN TIME (BEAKER) (test 102.0 seconds 22.5-36.0 mkof=543) PROTHROMBIN TIME/[id number] 07:23:00 Test Item Value Reference Range Comments PROTIME (BEAKER) (test sott=069) 15.4 seconds 11.7-14.7 INR (BEAKER) (test ojjv=526) 1.2 <=5.9 RECOMMENDED COUMADIN/WARFARIN INR THERAPY RANGESSTANDARD DOSE: 2.0 - 3.0 Includes: PROPHYLAXIS forvenous thrombosis, systemic embolization; TREATMENT for venous thrombosis and/or pulmonary embolus.HIGH RISK: Target INR is 2.5-3.5 for patients with mechanical heart valves.CBC (HEMOGRAM ONLY)2017-11-26 07:09:00 Test Item Value Reference Range Comments WHITE BLOOD CELL COUNT (BEAKER) (test fiki=843) 7.3 K/ L 3.5-10.5 RED BLOOD CELL COUNT (BEAKER) (test jotg=209) 4.18 M/ L 4.63-6.08 HEMOGLOBIN (BEAKER) (test zeah=391) 9.7 GM/DL 13.7-17.5 HEMATOCRIT (BEAKER) (test pmvg=231) 32.0 % 40.1-51.0 MEAN CORPUSCULAR VOLUME (BEAKER) (test ullz=221) 76.6 fL 79.0-92.2 MEAN CORPUSCULAR HEMOGLOBIN (BEAKER) (test 23.2 pg 25.7-32.2 kzcp=758) MEAN CORPUSCULAR HEMOGLOBIN CONC (BEAKER) (test 30.3 GM/DL 32.3-36.5 xkqk=896) RED CELL DISTRIBUTION WIDTH (BEAKER) (test 16.0 % 11.6-14.4 imbo=088) PLATELET COUNT (BEAKER) (test nyca=942) 179 K/CU MM 150-450 MEAN PLATELET VOLUME (BEAKER) (test ogqs=048) 10.0 fL 9.4-12.4 NUCLEATED RED BLOOD CELLS (BEAKER) (test 0 /100 WBC 0-0 prjy=478) [id number] 23:49:00 Test Item Value Reference Range Comments PARTIAL THROMBOPLASTIN TIME (BEAKER) (test 60.2 seconds 22.5-36.0 uoar=893) POCT-GLUCOSE [id number] 21:53:00 Test Item Value Reference Range Comments POC-GLUCOSE METER (BEAKER) 309 mg/dL 70-110 TESTED AT [address] (test hfns=3339) [place] [id number] POCT-GLUCOSE [id number] 17:31:00 Test Item Value Reference Range Comments POC-GLUCOSE METER (BEAKER) 331 mg/dL 70-110 TESTED AT [address] (test kjuq=5208) [place] [id number] RAD, ABDOMEN/KUB, 1 VIEW [id number] 15:59:00LABS: [facility] [place], [place] [phone] (PH) [phone] (FAX)Reason for exam:->epigastric painFINAL REPORT ONE VIEW [...] [place] Verified Date/Time: 11/25/2017 15:59:39 Reading Location: [facility] [id number] Ortho ConsultReading Room [id number] 15:57:00 Test Item Value Reference Range Comments PARTIAL THROMBOPLASTIN TIME (BEAKER) (test 100.6 seconds 22.5-36.0 qkwy=343) HEMOGLOBIN AND [id number] 15:41:00 Test Item Value Reference Range Comments HEMOGLOBIN (BEAKER) (test gtdn=466) 9.6 GM/DL 13.7-17.5 HEMATOCRIT (BEAKER) (test ndkw=762) 30.6 % 40.1-51.0 POCT-GLUCOSE [id number] 13:13:00 Test Item Value Reference Range Comments POC-GLUCOSE METER (BEAKER) 290 mg/dL 70-110 TESTED AT [address] (test glgl=9519) [place] [address] POCT-GLUCOSE [id number] 08:57:00 Test Item Value Reference Range Comments POC-GLUCOSE METER (BEAKER) 198 mg/dL 70-110 TESTED AT [facility] [address] [facility] (test gqke=7153) [facility] [address] [id number] 08:26:00 Test Item Value Reference Range Comments PARTIAL THROMBOPLASTIN TIME (BEAKER) (test 61.2 seconds 22.5-36.0 snft=413) BASIC METABOLIC [id number] 05:38:00 Test Item Value Reference Range Comments SODIUM (BEAKER) (test 134 meq/L 136-145 wqye=730) POTASSIUM (BEAKER) (test 3.8 meq/L 3.5-5.1 msoj=459) CHLORIDE (BEAKER) (test 102 meq/L 98-107 diix=543) CO2 (BEAKER) (test 26 meq/L 22-29 ztte=190) BLOOD UREA NITROGEN 16 mg/dL 7-21 (BEAKER) (test eqgy=403) CREATININE (BEAKER) (test 1.01 mg/dL 0.57-1.25 twdk=588) GLUCOSE RANDOM (BEAKER) 231 mg/dL 70-105 (test xnkz=158) CALCIUM (BEAKER) (test 8.7 mg/dL 8.4-10.2 jwpj=383) EGFR (BEAKER) (test 77 mL/min/1.73 sq m ESTIMATED GFR IS NOT cqjy=8809) ACCURATE CREATININE CLEARANCE IN PREDICTING GLOMERULAR FILTRATION RATE. ESTIMATED GFR IS NOT APPLICABLE FOR DIALYSIS PATIENTS. [id number] 05:19:00 Test Item Value Reference Range Comments PARTIAL THROMBOPLASTIN TIME (BEAKER) (test 130.0 seconds 22.5-36.0 hzyl=114) PROTHROMBIN TIME/[id number] 05:10:00 Test Item Value Reference Range Comments PROTIME (BEAKER) (test iaho=358) 15.6 seconds 11.7-14.7 INR (BEAKER) (test ezcb=368) 1.3 <=5.9 RECOMMENDED COUMADIN/WARFARIN INR THERAPY RANGESSTANDARD DOSE: 2.0 - 3.0 Includes: PROPHYLAXIS forvenous thrombosis, systemic embolization; TREATMENT for venous thrombosis and/or pulmonary embolus.HIGH RISK: Target INR is 2.5-3.5 for patients with mechanical heart valves.CBC (HEMOGRAM ONLY)2017-11-25 04:57:00 Test Item Value Reference Range Comments WHITE BLOOD CELL COUNT (BEAKER) (test uumh=358) 7.1 K/ L 3.5-10.5 RED BLOOD CELL COUNT (BEAKER) (test lhje=982) 3.89 M/ L 4.63-6.08 HEMOGLOBIN (BEAKER) (test qoyn=665) 9.1 GM/DL 13.7-17.5 HEMATOCRIT (BEAKER) (test ukce=256) 30.7 % 40.1-51.0 MEAN CORPUSCULAR VOLUME (BEAKER) (test qmto=224) 78.9 fL 79.0-92.2 MEAN CORPUSCULAR HEMOGLOBIN (BEAKER) (test 23.4 pg 25.7-32.2 mhho=777) MEAN CORPUSCULAR HEMOGLOBIN CONC (BEAKER) (test 29.6 GM/DL 32.3-36.5 kyxp=125) RED CELL DISTRIBUTION WIDTH (BEAKER) (test 15.7 % 11.6-14.4 oyqx=375) PLATELET COUNT (BEAKER) (test tbqt=538) 163 K/CU MM 150-450 MEAN PLATELET VOLUME (BEAKER) (test xame=154) 9.8 fL 9.4-12.4 NUCLEATED RED BLOOD CELLS (BEAKER) (test 0 /100 WBC 0-0 octf=649) [id number] 22:42:00 Test Item Value Reference Range Comments PARTIAL THROMBOPLASTIN TIME (BEAKER) (test 63.8 seconds 22.5-36.0 qwhm=815) POCT-GLUCOSE [id number] 21:35:00 Test Item Value Reference Range Comments POC-GLUCOSE METER (BEAKER) 215 mg/dL 70-110 TESTED AT [address] (test phlb=2943) [facility] [address] POCT-GLUCOSE [id number] 17:39:00 Test Item Value Reference Range Comments POC-GLUCOSE METER (BEAKER) 278 mg/dL 70-110 TESTED AT [address] (test fqrc=8721) [facility] [address] [id number] 14:16:00 Test Item Value Reference Range Comments PARTIAL THROMBOPLASTIN TIME (BEAKER) (test 57.4 seconds 22.5-36.0 zqjs=438) POCT-GLUCOSE [id number] 13:48:00 Test Item Value Reference Range Comments POC-GLUCOSE METER (BEAKER) 215 mg/dL 70-110 TESTED AT [facility] [address] [facility] (test bjvm=8135) [facility] [address] POCT-GLUCOSE [id number] 08:27:00 Test Item Value Reference Range Comments POC-GLUCOSE METER (BEAKER) 322 mg/dL 70-110 TESTED AT [address] (test pqyx=9214) [facility] [address] BASIC METABOLIC [id number] 07:05:00 Test Item Value Reference Range Comments SODIUM (BEAKER) (test 134 meq/L 136-145 pawu=940) POTASSIUM (BEAKER) (test 4.6 meq/L 3.5-5.1 Specimen slightly elkh=779) hemolyzed CHLORIDE (BEAKER) (test 104 meq/L 98-107 fxqk=387) CO2 (BEAKER) (test 23 meq/L 22-29 jnys=707) BLOOD UREA NITROGEN 16 mg/dL 7-21 (BEAKER) (test yjgn=140) CREATININE (BEAKER) (test 1.01 mg/dL 0.57-1.25 Specimen slightly ijhb=949) hemolyzed GLUCOSE RANDOM (BEAKER) 325 mg/dL 70-105 (test dwfa=487) CALCIUM (BEAKER) (test 8.5 mg/dL 8.4-10.2 ezyn=499) EGFR (BEAKER) (test 77 mL/min/1.73 sq m ESTIMATED GFR IS NOT fsdg=7155) ACCURATE CREATININE CLEARANCE IN PREDICTING GLOMERULAR FILTRATION RATE. ESTIMATED GFR IS NOT APPLICABLE FOR DIALYSIS PATIENTS. CBC (HEMOGRAM ONLY)2017-11-24 06:48:00 Test Item Value Reference Range Comments WHITE BLOOD CELL COUNT (BEAKER) (test bhea=664) 6.6 K/ L 3.5-10.5 RED BLOOD CELL COUNT (BEAKER) (test hixk=945) 3.94 M/ L 4.63-6.08 HEMOGLOBIN (BEAKER) (test pomf=208) 9.3 GM/DL 13.7-17.5 HEMATOCRIT (BEAKER) (test pykt=655) 30.8 % 40.1-51.0 MEAN CORPUSCULAR VOLUME (BEAKER) (test oxpb=911) 78.2 fL 79.0-92.2 MEAN CORPUSCULAR HEMOGLOBIN (BEAKER) (test 23.6 pg 25.7-32.2 irew=837) MEAN CORPUSCULAR HEMOGLOBIN CONC (BEAKER) (test 30.2 GM/DL 32.3-36.5 oehx=434) RED CELL DISTRIBUTION WIDTH (BEAKER) (test 15.1 % 11.6-14.4 zess=238) PLATELET COUNT (BEAKER) (test olts=146) 148 K/CU MM 150-450 MEAN PLATELET VOLUME (BEAKER) (test djfy=505) 10.2 fL 9.4-12.4 NUCLEATED RED BLOOD CELLS (BEAKER) (test 0 /100 WBC 0-0 bmfa=508) PROTHROMBIN TIME/[id number] 06:46:00 Test Item Value Reference Range Comments PROTIME (BEAKER) (test hkdv=509) 17.1 seconds 11.7-14.7 INR (BEAKER) (test yrqx=621) 1.4 <=5.9 RECOMMENDED COUMADIN/WARFARIN INR THERAPY RANGESSTANDARD DOSE: 2.0 - 3.0 Includes: PROPHYLAXIS forvenous thrombosis, systemic embolization; TREATMENT for venous thrombosis and/or pulmonary embolus.HIGH RISK: Target INR is 2.5-3.5 for patients with mechanical heart valves.[id number] 06:46:00 Test Item Value Reference Range Comments PARTIAL THROMBOPLASTIN TIME (BEAKER) (test 52.5 seconds 22.5-36.0 ahsy=062) [id number] 22:51:00 Test Item Value Reference Range Comments PARTIAL THROMBOPLASTIN TIME (BEAKER) (test 45.0 seconds 22.5-36.0 thaa=684) POCT-GLUCOSE [id number] 20:33:00 Test Item Value Reference Range Comments POC-GLUCOSE METER (BEAKER) 290 mg/dL 70-110 TESTED AT [address] (test zqai=2291) [place] [address] POCT-GLUCOSE [id number] 17:18:00 Test Item Value Reference Range Comments POC-GLUCOSE METER (BEAKER) 281 mg/dL 70-110 TESTED AT [address] (test wncc=4899) [place] [address] POCT-GLUCOSE [id number] 17:00:00 Test Item Value Reference Range Comments POC-GLUCOSE METER (BEAKER) 169 mg/dL 70-110 TESTED AT [address] (test bkcr=1975) [place] [id number] POCT-GLUCOSE [id number] 17:00:00 Test Item Value Reference Range Comments POC-GLUCOSE METER (BEAKER) 232 mg/dL 70-110 TESTED AT [address] (test wjyc=9500) [place] [address] [id number] 15:43:00 Test Item Value Reference Range Comments PARTIAL THROMBOPLASTIN TIME (BEAKER) (test 36.2 seconds 22.5-36.0 mzbs=984) 6 hours after starting heparin infusion and as indicated per sliding scaleTISSUE [id number] 15:42:00Surgical Pathology Report Case: [id number] Authorizing Provider: Emely Wellington Collected: 11/22/2017 1710 MD Nicky OrderingLocation: [facility] CV Recovery Room 2 Received: 2017 0806 Pathologist: Billy Jean MD Specimen: Stomach, Antrum, polyp PART A GASTRIC ANTRUM POLYP, BIOPSY:GASTRIC MUCOSA WITH HYPERPLASTIC FEATURES AND FOCAL INTESTINAL METAPLASIA.NEGATIVEFOR DYSPLASIA OR INVASIVE CARCINOMA.WARTHIN STARRY STAIN FOR HELICOBACTER IS NEGATIVE. Signing Pathologist Direct Phone Line: [phone] signed by Billy Jean MD on at 3:42 [id number], [id number] hemorrhage Stomach antrum polyp The specimen is received in a formalin-filled container labeled with the patient 's information and labeled "stomach antrum polyp" and consists of a 0.1 cm fragment of esteban soft tissue submitted in A1. CG/ew The following special studies were performed on this case and the interpretation is incorporated in the diagnostic report above:BLOCK A1- JACQUIE CULPRYPOCT-GLUCOSE [id number] 07:19:00 Test Item Value Reference Range Comments POC-GLUCOSE METER (BEAKER) 271 mg/dL 70-110 TESTED AT [address] (test anxw=4177) [place] [id number] BASIC METABOLIC [id number] 06:09:00 Test Item Value Reference Range Comments SODIUM (BEAKER) (test 138 meq/L 136-145 yvoh=971) POTASSIUM (BEAKER) (test 3.9 meq/L 3.5-5.1 xjud=177) CHLORIDE (BEAKER) (test 104 meq/L 98-107 izeg=875) CO2 (BEAKER) (test 29 meq/L 22-29 pnty=452) BLOOD UREA NITROGEN 16 mg/dL 7-21 (BEAKER) (test hvgx=538) CREATININE (BEAKER) (test 1.15 mg/dL 0.57-1.25 svrq=562) GLUCOSE RANDOM (BEAKER) 234 mg/dL 70-105 (test fohz=493) CALCIUM (BEAKER) (test 8.5 mg/dL 8.4-10.2 cvev=253) EGFR (BEAKER) (test 66 mL/min/1.73 sq m ESTIMATED GFR IS NOT zktx=7244) ACCURATE CREATININE CLEARANCE IN PREDICTING GLOMERULAR FILTRATION RATE. ESTIMATED GFR IS NOT APPLICABLE FOR DIALYSIS PATIENTS. PROTHROMBIN TIME/[id number] 05:45:00 Test Item Value Reference Range Comments PROTIME (BEAKER) (test fqfq=871) 20.0 seconds 11.7-14.7 INR (BEAKER) (test kzge=405) 1.7 <=5.9 RECOMMENDED COUMADIN/WARFARIN INR THERAPY RANGESSTANDARD DOSE: 2.0 - 3.0 Includes: PROPHYLAXIS forvenous thrombosis, systemic embolization; TREATMENT for venous thrombosis and/or pulmonary embolus.HIGH RISK: Target INR is 2.5-3.5 for patients with mechanical heart valves.CBC W/PLT COUNT & AUTO [id number] 05:36:00 Test Item Value Reference Range Comments WHITE BLOOD CELL COUNT (BEAKER) (test nudr=712) 8.1 K/ L 3.5-10.5 RED BLOOD CELL COUNT (BEAKER) (test ksri=612) 4.23 M/ L 4.63-6.08 HEMOGLOBIN (BEAKER) (test oqwx=157) 10.0 GM/DL 13.7-17.5 HEMATOCRIT (BEAKER) (test lmrj=776) 32.6 % 40.1-51.0 MEAN CORPUSCULAR VOLUME (BEAKER) (test ufkk=331) 77.1 fL 79.0-92.2 MEAN CORPUSCULAR HEMOGLOBIN (BEAKER) (test 23.6 pg 25.7-32.2 cybv=122) MEAN CORPUSCULAR HEMOGLOBIN CONC (BEAKER) (test 30.7 GM/DL 32.3-36.5 bieq=433) RED CELL DISTRIBUTION WIDTH (BEAKER) (test 15.0 % 11.6-14.4 bnyl=428) PLATELET COUNT (BEAKER) (test rpmk=774) 185 K/CU MM 150-450 MEAN PLATELET VOLUME (BEAKER) (test ksij=096) 9.9 fL 9.4-12.4 NUCLEATED RED BLOOD CELLS (BEAKER) (test 0 /100 WBC 0-0 lkzl=576) NEUTROPHILS RELATIVE PERCENT (BEAKER) (test 70 % ctfx=124) LYMPHOCYTES RELATIVE PERCENT (BEAKER) (test 19 % rmhj=966) MONOCYTES RELATIVE PERCENT (BEAKER) (test 7 % yasl=174) EOSINOPHILS RELATIVE PERCENT (BEAKER) (test 3 % hpom=680) BASOPHILS RELATIVE PERCENT (BEAKER) (test 1 % zwip=946) NEUTROPHILS ABSOLUTE COUNT (BEAKER) (test 5.65 K/ L 1.78-5.38 ljam=393) LYMPHOCYTES ABSOLUTE COUNT (BEAKER) (test 1.53 K/ L 1.32-3.57 hdjh=621) MONOCYTES ABSOLUTE COUNT (BEAKER) (test 0.56 K/ L 0.30-0.82 mypm=832) EOSINOPHILS ABSOLUTE COUNT (BEAKER) (test 0.23 K/ L 0.04-0.54 yqgj=816) BASOPHILS ABSOLUTE COUNT (BEAKER) (test 0.07 K/ L 0.01-0.08 nwzi=707) IMMATURE GRANULOCYTES-RELATIVE PERCENT (BEAKER) 1 % 0-1 (test bekg=1452) BASIC METABOLIC [id number] 05:20:00 Test Item Value Reference Range Comments SODIUM (BEAKER) (test 138 meq/L 136-145 tzhs=722) POTASSIUM (BEAKER) (test 4.3 meq/L 3.5-5.1 bkfr=797) CHLORIDE (BEAKER) (test 105 meq/L 98-107 zbzw=235) CO2 (BEAKER) (test 26 meq/L 22-29 fzbk=254) BLOOD UREA NITROGEN 20 mg/dL 7-21 (BEAKER) (test dnoq=384) CREATININE (BEAKER) (test 1.05 mg/dL 0.57-1.25 tgmp=631) GLUCOSE RANDOM (BEAKER) 198 mg/dL 70-105 (test ifkn=488) CALCIUM (BEAKER) (test 8.1 mg/dL 8.4-10.2 tndq=060) EGFR (BEAKER) (test 73 mL/min/1.73 sq m ESTIMATED GFR IS NOT nwcq=5885) ACCURATE CREATININE CLEARANCE IN PREDICTING GLOMERULAR FILTRATION RATE. ESTIMATED GFR IS NOT APPLICABLE FOR DIALYSIS PATIENTS. HEMOGLOBIN AND [id number] 05:14:00 Test Item Value Reference Range Comments HEMOGLOBIN (BEAKER) (test inuz=548) 9.6 GM/DL 13.7-17.5 HEMATOCRIT (BEAKER) (test ibkw=253) 32.0 % 40.1-51.0 PROTHROMBIN TIME/[id number] 04:58:00 Test Item Value Reference Range Comments PROTIME (BEAKER) (test mayg=799) 23.2 seconds 11.7-14.7 INR (BEAKER) (test wyvk=875) 2.1 <=5.9 RECOMMENDED COUMADIN/WARFARIN INR THERAPY RANGESSTANDARD DOSE: 2.0 - 3.0 Includes: PROPHYLAXIS forvenous thrombosis, systemic embolization; TREATMENT for venous thrombosis and/or pulmonary embolus.HIGH RISK: Target INR is 2.5-3.5 for patients with mechanical heart valves.POCT-GLUCOSE [id number] 00:43:00 Test Item Value Reference Range Comments POC-GLUCOSE METER (BEAKER) 262 mg/dL 70-110 TESTED AT [address] (test gszx=6218) [place] [address] HEMOGLOBIN AND [id number] 23:41:00 Test Item Value Reference Range Comments HEMOGLOBIN (BEAKER) (test bxiu=255) 10.2 GM/DL 13.7-17.5 HEMATOCRIT (BEAKER) (test fmde=206) 33.5 % 40.1-51.0 POCT-GLUCOSE [id number] 18:36:00 Test Item Value Reference Range Comments POC-GLUCOSE METER (BEAKER) 309 mg/dL 70-110 TESTED AT [address] (test phlm=8555) [place] [id number] HEMOGLOBIN AND [id number] 18:35:00 Test Item Value Reference Range Comments HEMOGLOBIN (BEAKER) (test xfty=156) 9.6 GM/DL 13.7-17.5 HEMATOCRIT (BEAKER) (test ivao=925) 31.3 % 40.1-51.0 POCT-GLUCOSE [id number] 13:11:00 Test Item Value Reference Range Comments POC-GLUCOSE METER (BEAKER) 217 mg/dL 70-110 TESTED AT [facility] [address] [facility] (test dfjv=3157) [facility] [address] LACTATE DEHYDROGENASE (LDH)2017-11-21 12:53:00 Test Item Value Reference Range Comments LACTATE DEHYDROGENASE (BEAKER) (test nsdf=947) 318 U/L 125-220 HEMOGLOBIN AND [id number] 12:12:00 Test Item Value Reference Range Comments HEMOGLOBIN (BEAKER) (test nyst=586) 9.9 GM/DL 13.7-17.5 HEMATOCRIT (BEAKER) (test hkqv=143) 32.7 % 40.1-51.0 B-TYPE NATRIURETIC FACTOR (BNP)2017-11-21 03:36:00 Test Item Value Reference Range Comments B-TYPE NATRIURETIC PEPTIDE (BEAKER) (test 339 pg/mL 0-100 xzzx=396) CREATINE KINASE (CK), TOTAL AND [id number] 02:58:00 Test Item Value Reference Range Comments CREATINE KINASE TOTAL (BEAKER) (test vetg=105) 59 U/L 29-200 CREATINE KINASE-MB (BEAKER) (test etay=395) 1.0 ng/mL 0.0-6.6 CREATINE KINASE-MB INDEX (BEAKER) (test mvvm=033) 1.7 % CK-MB Reference Range:<6.7 Normal6.7-10.0 Borderline>10.0 AbnormalTROPONIN [id number] 02:58:00 Test Item Value Reference Range Comments TROPONIN I (BEAKER) (test qcco=746) < ng/mL 0.00-0.03 Troponin I (TnI) levels [...] and persistent tachyarrhythmia.RAD, CHEST, 1 VIEW, NON [id number] 02:11:00LABS: [facility] [place] [address] [phone] () [phone] (FAX)Reason for exam:-> EPISTAXISReason for exam:->RECTAL BLEEDINGReason [...] MDReport Verified Date/Time: 11/21/2017 02:11:19 Reading Location: [address] Reading Room Electronically signed by: ERVIN RODRIGUEZ M.D. on 02:11 [id number] 01:04:00 Test Item Value Reference Range Comments LIPASE (BEAKER) (test jauz=037) 20 U/L 8-78 [id number] 01:04:00 Test Item Value Reference Range Comments AMYLASE (BEAKER) (test nmlu=516) 28 U/L 25-125 BASIC METABOLIC [id number] 01:04:00 Test Item Value Reference Range Comments SODIUM (BEAKER) (test 139 meq/L 136-145 mbxp=900) POTASSIUM (BEAKER) (test 4.6 meq/L 3.5-5.1 lcdy=558) CHLORIDE (BEAKER) (test 105 meq/L 98-107 zvvj=648) CO2 (BEAKER) (test 26 meq/L 22-29 pnrc=063) BLOOD UREA NITROGEN 31 mg/dL 7-21 (BEAKER) (test gqlo=882) CREATININE (BEAKER) (test 1.26 mg/dL 0.57-1.25 jsdp=636) GLUCOSE RANDOM (BEAKER) 225 mg/dL 70-105 (test nxdc=673) CALCIUM (BEAKER) (test 8.6 mg/dL 8.4-10.2 jbkl=463) EGFR (BEAKER) (test 59 mL/min/1.73 sq m ESTIMATED GFR IS NOT chnj=8521) ACCURATE CREATININE CLEARANCE IN PREDICTING GLOMERULAR FILTRATION RATE. ESTIMATED GFR IS NOT APPLICABLE FOR DIALYSIS PATIENTS. HEPATIC FUNCTION [id number] 01:04:00 Test Item Value Reference Range Comments TOTAL PROTEIN (BEAKER) (test elcj=736) 7.5 gm/dL 6.0-8.3 ALBUMIN (BEAKER) (test bpwc=5946) 3.5 g/dL 3.5-5.0 BILIRUBIN TOTAL (BEAKER) (test rvui=698) 0.6 mg/dL 0.2-1.2 BILIRUBIN DIRECT (BEAKER) (test bqzw=401) 0.2 mg/dL 0.1-0.5 ALKALINE PHOSPHATASE (BEAKER) (test lehf=252) 106 U/L 40-150 AST (SGOT) (BEAKER) (test qucq=237) 22 U/L 5-34 ALT (SGPT) (BEAKER) (test yypz=501) 25 U/L 6-55 URINALYSIS W/ [id number] 00:56:00 Test Item Value Reference Range Comments COLOR (BEAKER) (test okpd=022) Yellow CLARITY (BEAKER) (test rjrp=741) Clear SPECIFIC GRAVITY UA (BEAKER) (test iwds=938) 1.015 1.001-1.035 PH UA (BEAKER) (test eorn=127) 5.5 5.0-8.0 PROTEIN UA (BEAKER) (test gafq=779) 20 mg/dL Negative GLUCOSE UA (BEAKER) (test pgts=030) Negative Negative KETONES UA (BEAKER) (test uiwz=049) Negative Negative BILIRUBIN UA (BEAKER) (test qrtn=579) Negative Negative BLOOD UA (BEAKER) (test bijk=010) Small Negative NITRITE UA (BEAKER) (test jnpf=585) Negative Negative LEUKOCYTE ESTERASE UA (BEAKER) (test dqkd=444) Negative Negative UROBILINOGEN UA (BEAKER) (test wshl=157) 0.2 mg/dL 0.2-1.0 RBC UA (BEAKER) (test ifpf=104) 4 /HPF WBC UA (BEAKER) (test owmc=016) 1 /HPF SQUAMOUS EPITHELIAL (BEAKER) (test iapp=002) < /HPF HYALINE CASTS (BEAKER) (test wzzq=721) 1 /LPF SOURCE(BEAKER) (test gelh=9593) Urine, Voided CBC W/PLT COUNT & AUTO [id number] 00:33:00 Test Item Value Reference Range Comments WHITE BLOOD CELL COUNT (BEAKER) (test hncc=020) 7.7 K/ L 3.5-10.5 RED BLOOD CELL COUNT (BEAKER) (test roeh=221) 3.87 M/ L 4.63-6.08 HEMOGLOBIN (BEAKER) (test vral=910) 8.7 GM/DL 13.7-17.5 HEMATOCRIT (BEAKER) (test vvqo=894) 29.7 % 40.1-51.0 MEAN CORPUSCULAR VOLUME (BEAKER) (test qvyo=146) 76.7 fL 79.0-92.2 MEAN CORPUSCULAR HEMOGLOBIN (BEAKER) (test 22.5 pg 25.7-32.2 qjnj=980) MEAN CORPUSCULAR HEMOGLOBIN CONC (BEAKER) (test 29.3 GM/DL 32.3-36.5 xuzu=810) RED CELL DISTRIBUTION WIDTH (BEAKER) (test 14.8 % 11.6-14.4 nkmh=428) PLATELET COUNT (BEAKER) (test rlar=124) 188 K/CU MM 150-450 MEAN PLATELET VOLUME (BEAKER) (test wodk=778) 9.8 fL 9.4-12.4 NUCLEATED RED BLOOD CELLS (BEAKER) (test 0 /100 WBC 0-0 fare=716) NEUTROPHILS RELATIVE PERCENT (BEAKER) (test 67 % gryv=904) LYMPHOCYTES RELATIVE PERCENT (BEAKER) (test 23 % yrpm=522) MONOCYTES RELATIVE PERCENT (BEAKER) (test 7 % ajnz=495) EOSINOPHILS RELATIVE PERCENT (BEAKER) (test 2 % xypy=960) BASOPHILS RELATIVE PERCENT (BEAKER) (test 1 % rikf=321) NEUTROPHILS ABSOLUTE COUNT (BEAKER) (test 5.13 K/ L 1.78-5.38 dpic=496) LYMPHOCYTES ABSOLUTE COUNT (BEAKER) (test 1.73 K/ L 1.32-3.57 dvbm=681) MONOCYTES ABSOLUTE COUNT (BEAKER) (test 0.53 K/ L 0.30-0.82 qceu=460) EOSINOPHILS ABSOLUTE COUNT (BEAKER) (test 0.18 K/ L 0.04-0.54 vidn=894) BASOPHILS ABSOLUTE COUNT (BEAKER) (test 0.07 K/ L 0.01-0.08 oaut=244) IMMATURE GRANULOCYTES-RELATIVE PERCENT (BEAKER) 1 % 0-1 (test dags=9622) [id number] 00:17:00 Test Item Value Reference Range Comments PROTIME (BEAKER) (test vusv=436) 25.4 seconds 11.7-14.7 INR (BEAKER) (test tmnt=684) 2.3 <=5.9 PARTIAL THROMBOPLASTIN TIME (BEAKER) (test 36.2 seconds 22.5-36.0 gcqm=009) RECOMMENDED COUMADIN/WARFARIN INR THERAPY RANGESSTANDARD DOSE: 2.0 - 3.0 Includes: PROPHYLAXIS forvenous thrombosis, systemic embolization; TREATMENT for venous thrombosis and/or pulmonary embolus.HIGH RISK: Target INR is 2.5-3.5 for patients with mechanical heart valves.PLASMA FREE [id number] 07:27 :00 Test Item Value Reference Range Comments HEMOGLOBIN PLASMA (BEAKER) (test stjn=0093) 30.0 mg/dl 0.0-30.0 HEMOGLOBIN [id number] 20:04:00 Test Item Value Reference Range Comments HEMOGLOBIN A1C (BEAKER) (test eivv=231) 6.7 % 4.3-6.1 [id number] 14:33:00 Test Item Value Reference Range Comments PREALBUMIN (BEAKER) (test untk=317) 16 mg/dL 14-45 CT, CHEST, WITHOUT [id number] 14:33:00LABS: [facility] [id number] [place] [address] [phone] () [phone] (FAX)FINAL REPORT HISTORY: Lung nodule, <1cm COMPARISON [...] material. Please see above. Signed: Hank Bass MDReport Verified Date/Time: 14:33:30 Reading Location: [facility] Diagnostic Imaging Reading Room - [place] [address] [id number] 14:27:00 Test Item Value Reference Range Comments MAGNESIUM (BEAKER) (test tgwx=554) 1.8 mg/dL 1.6-2.6 BASIC METABOLIC [id number] 14:27:00 Test Item Value Reference Range Comments SODIUM (BEAKER) (test 137 meq/L 136-145 fbtu=093) POTASSIUM (BEAKER) (test 4.7 meq/L 3.5-5.1 ndpa=547) CHLORIDE (BEAKER) (test 103 meq/L 98-107 blog=120) CO2 (BEAKER) (test 26 meq/L 22-29 elwl=686) BLOOD UREA NITROGEN 25 mg/dL 7-21 (BEAKER) (test buqg=928) CREATININE (BEAKER) (test 1.26 mg/dL 0.57-1.25 kyvj=084) GLUCOSE RANDOM (BEAKER) 157 mg/dL 70-105 (test moag=704) CALCIUM (BEAKER) (test 8.9 mg/dL 8.4-10.2 vtau=192) EGFR (BEAKER) (test 59 mL/min/1.73 sq m ESTIMATED GFR IS NOT ftlt=7300) ACCURATE CREATININE CLEARANCE IN PREDICTING GLOMERULAR FILTRATION RATE. ESTIMATED GFR IS NOT APPLICABLE FOR DIALYSIS PATIENTS. HEPATIC FUNCTION [id number] 14:27:00 Test Item Value Reference Range Comments TOTAL PROTEIN (BEAKER) (test rlyv=802) 7.9 gm/dL 6.0-8.3 ALBUMIN (BEAKER) (test rrod=8950) 3.8 g/dL 3.5-5.0 BILIRUBIN TOTAL (BEAKER) (test esxy=287) 0.6 mg/dL 0.2-1.2 BILIRUBIN DIRECT (BEAKER) (test rqfm=316) 0.3 mg/dL 0.1-0.5 ALKALINE PHOSPHATASE (BEAKER) (test qqbw=885) 97 U/L 40-150 AST (SGOT) (BEAKER) (test ajki=411) 24 U/L 5-34 ALT (SGPT) (BEAKER) (test kdlz=648) 31 U/L 6-55 LACTATE DEHYDROGENASE (LDH)2017-10-05 14:27:00 Test Item Value Reference Range Comments LACTATE DEHYDROGENASE (BEAKER) (test fjnx=052) 282 U/L 125-220 PROTHROMBIN [id number] 13:48:00 Test Item Value Reference Range Comments PROTIME (BEAKER) (test fxbw=916) 22.5 seconds 11.7-14.7 INR (BEAKER) (test zqax=179) 2.0 <=5.9 RECOMMENDED COUMADIN/WARFARIN INR THERAPY RANGESSTANDARD DOSE: 2.0 - 3.0 Includes: PROPHYLAXIS forvenous thrombosis, systemic embolization; TREATMENT for venous thrombosis and/or pulmonary embolus.HIGH RISK: Target INR is 2.5-3.5 for patients with mechanical heart valves.CBC W/PLT COUNT & AUTO [id number] 13:36:00 Test Item Value Reference Range Comments WHITE BLOOD CELL COUNT (BEAKER) (test bmrq=723) 6.8 K/ L 3.5-10.5 RED BLOOD CELL COUNT (BEAKER) (test jtgl=174) 4.69 M/ L 4.63-6.08 HEMOGLOBIN (BEAKER) (test tcea=283) 11.1 GM/DL 13.7-17.5 HEMATOCRIT (BEAKER) (test yzob=964) 36.3 % 40.1-51.0 MEAN CORPUSCULAR VOLUME (BEAKER) (test noei=348) 77.4 fL 79.0-92.2 MEAN CORPUSCULAR HEMOGLOBIN (BEAKER) (test 23.7 pg 25.7-32.2 jzdb=126) MEAN CORPUSCULAR HEMOGLOBIN CONC (BEAKER) (test 30.6 GM/DL 32.3-36.5 nwbk=080) RED CELL DISTRIBUTION WIDTH (BEAKER) (test 15.4 % 11.6-14.4 mwgr=662) PLATELET COUNT (BEAKER) (test gvnp=772) 183 K/CU MM 150-450 MEAN PLATELET VOLUME (BEAKER) (test htvi=428) 10.0 fL 9.4-12.4 NUCLEATED RED BLOOD CELLS (BEAKER) (test 0 /100 WBC 0-0 nfmb=016) NEUTROPHILS RELATIVE PERCENT (BEAKER) (test 65 % taji=399) LYMPHOCYTES RELATIVE PERCENT (BEAKER) (test 24 % dxnb=361) MONOCYTES RELATIVE PERCENT (BEAKER) (test 8 % aqzx=228) EOSINOPHILS RELATIVE PERCENT (BEAKER) (test 2 % awra=699) BASOPHILS RELATIVE PERCENT (BEAKER) (test 1 % ydjh=630) NEUTROPHILS ABSOLUTE COUNT (BEAKER) (test 4.37 K/ L 1.78-5.38 akqj=887) LYMPHOCYTES ABSOLUTE COUNT (BEAKER) (test 1.62 K/ L 1.32-3.57 lrst=211) MONOCYTES ABSOLUTE COUNT (BEAKER) (test 0.55 K/ L 0.30-0.82 ngpe=488) EOSINOPHILS ABSOLUTE COUNT (BEAKER) (test 0.15 K/ L 0.04-0.54 azwu=751) BASOPHILS ABSOLUTE COUNT (BEAKER) (test 0.07 K/ L 0.01-0.08 rakf=666) IMMATURE GRANULOCYTES-RELATIVE PERCENT (BEAKER) 0 % 0-1 (test xbpr=9896) HEPATITIS C PCR, [id number] 09:32:00 Test Item Value Reference Range Comments HCV RESULT COMPONENT (BEAKER) HCV RNA not detected HCV RNA not detected (test rdhb=4983) This test uses a Real-Time Polymerase Chain Reaction (RT-PCR) methodology and was performed using [employer] Ampliprep/BHASKAR TaqMan HCV test kit version 2.0 ( [employer]).Reportable range for this assay is 15 - 100,000, 000 IU per mL (1.18 - 8.00 Log IU/mL).AB SPECIFICITY CLASS [id number] 09:45:00 Test Item Value Reference Range Comments DATE OF SERUM (BEAKER) (test klfb=0037) 092103 SERUM # (BEAKER) (test enih=9270) 435940 AB SPECIFICITY CLASS I (BEAKER) (test See Scanned Report knzy=4889) FLOW PRA CLASS I AND [id number] 14:14:00 Test Item Value Reference Range Comments DATE OF SERUM (BEAKER) (test veoy=5434) 233127 SERUM # (BEAKER) (test yttd=9296) 355346 FLOW PRA CLASS I AND II (test hjcd=6261) See Scanned Report HERPES VIRUS ANTIBODY, [id number] 07:57:00 Test Item Value Reference Range Comments HERPES VIRUS IGM (BEAKER) (test mcvt=7865) Negative TOXOPLASMA GONDII ANTIBODY, [id number] 07:57:00 Test Item Value Reference Range Comments TOXOPLASMA IGM ANTIBODY (BEAKER) (test fveu=283) Negative ANTI-NUCLEAR ANTIBODY (NOLA)2017-09-01 10:42:00 Test Item Value Reference Range Comments ANTI-NUCLEAR ANTIBODY (NOLA) (BEAKER) (test Negative Negative jpfr=844) CYTOMEGALOVIRUS ANTIBODY, [id number] 15:35:00 Test Item Value Reference Range Comments CYTOMEGALOVIRUS IGG ANTIBODY (BEAKER) (test Positive stgf=576) CYTOMEGALOVIRUS ANTIBODY, [id number] 15:35:00 Test Item Value Reference Range Comments CYTOMEGALOVIRUS IGM ANTIBODY (BEAKER) (test Negative tmpx=526) EBV-VCA ANTIBODY, [id number] 15:35:00 Test Item Value Reference Range Comments AMAURI-MASON VCA IGG (BEAKER) (test hjbj=096) Positive EBV-VCA ANTIBODY, [id number] 15:35:00 Test Item Value Reference Range Comments AMAURI-MASON VCA IGM (BEAKER) (test wfcz=590) Negative HERPES VIRUS ANTIBODY, [id number] 15:35:00 Test Item Value Reference Range Comments HERPES VIRUS IGG (BEAKER) (test Positive HSV 1 IGG=POSHSV 2 IGG=NEG loxw=2955) TOXOPLASMA GONDII ANTIBODY, [id number] 15:35:00 Test Item Value Reference Range Comments TOXOPLASMA GONDII IGG (BEAKER) (test qnlx=528) Negative IMMUNOFIXATION ELECTROPHORESIS (ANGELIKA)2017-08-31 15:30:00 Test Item Value Reference Range Comments IMMUNOGLOBULIN G (IGG) (BEAKER) 1527 mg/dL 540-1822 (test ruvf=343) IMMUNOGLOBULIN A (IGA) (BEAKER) 402 mg/dL 63-484 (test mnij=291) IMMUNOGLOBULIN M (IGM) (BEAKER) 98 mg/dL 22-293 (test lcpp=193) SERUM ANGELIKA ID (BEAKER) (test No monoclonal proteins cjan=9296) detected. Polyclonal distribution of immunoglobulins. [id number] ([facility]) Gloria Schmidt MD (test chaw=5489) (electronic signature) PROTEIN ELECTROPHORESIS, [id number] 15:29:00 Test Item Value Reference Range Comments ALBUMIN FRACTION (BEAKER) 3.4 g/dL 3.5-5.5 (test ddaj=900) ALPHA 1 FRACTION (BEAKER) 0.3 g/dL 0.2-0.4 (test arbn=235) ALPHA 2 FRACTION (BEAKER) 0.7 g/dL 0.5-0.9 (test smnh=347) BETA FRACTION (BEAKER) (test 1.4 g/dL 0.6-1.1 idoy=815) GAMMA GLOBULIN FRACTION 1.5 g/dL 0.7-1.7 (BEAKER) (test clgo=499) INTERPRETATION-119 (BEAKER) All fractions present in (test otah=7148) expected distribution with minor nonspecific changes. No monoclonal bands detected. [id number] Gloria Schmidt MD (CONRADO) (test purw=8134) (electronic signature) PROTEIN TOTAL SERUM, SPEP 7.3 gm/dL 6.0-8.3 (BEAKER) (test vcek=9183) VARICELLA ZOSTER ANTIBODY, [id number] 15:16:00 Test Item Value Reference Range Comments VARICELLA ZOSTER IGG (AL) (BEAKER) (test yttx=7056) 6.1 Al VARICELLA ZOSTER RESULT INTERPRETATIONS: <=0.8 Al Nonreactive: Presumed non-immune to VZV 0.9-1.0 Al Equivocal >=1.1 Al Reactive: Presumed immune to VZVRAD, BONE DENSITY [id number] 11:20: 00LABS: [facility] AND [id number] [place] [address] [phone] () [phone] (FAX)Reason for Exam:->Heart transplant evaluationFINAL REPORT Bone mineral density study 2016. CLINICAL INDICATION: Heart transplant evaluation. COMPARISON: 02/03/2016 FINDINGS: Evaluation of the left and right femoral necks and lumbar spine was performed utilizing a [employer] Advance bone densitometer. Data reflect young adult [...] MDReport Verified Date/Time: 08/31/2017 11:20:44 Reading Location: [address] [place] , BRAIN, WITHOUT [id number] 09:58:00LABS: [facility] [address] [place] [address] ()[phone] (FAX)FINAL REPORT CT head without contrast INDICATION: [...] MDReport Verified Date/Time: 08/31/2017 09:58:49 Reading Location: [address] Neuro Reading Room HEMOGLOBIN [id number] 16:20:00 Test Item Value Reference Range Comments HEMOGLOBIN A1C (BEAKER) (test tqtu=833) 9.5 % 4.3-6.1 RAD, CHEST, 2 [id number] 15:22:00LABS: [facility] [address] [place] [place], [place] [phone] () [phone] (FAX) Reason for Exam:->Heart transplant evaluationFINAL REPORT Chest two views compared to January 17 Discussion: Left chest pacemaker and left ventricular assist device are noted. Lungs clear. Heart size normal. No effusion or pneumothorax. Signed: Maximus Miranda Verified Date/Time: 08/30/2017 15:22:59 Reading Location: [facility] B1 C013W Consult Reading Room U/S, RENAL, [id number] 15:04:00LABS: [facility] [id number] [place] [address] [phone] () [phone] (FAX)Reason for Exam: ->Heart transplant evaluationFINAL REPORT [...] Solitario Verified Date/Time: 08/30/2017 15:04:53 Reading Location: [facility] B1 P006J Ultrasound Reading Room Electronically signed by: MONA SOLITARIO M.D. on 10/2017 03:04 PMHEPATITIS C [id number] 14:00:00 Test Item Value Reference Range Comments HEPATITIS C ANTIBODY (BEAKER) (test lkcr=297) Reactive Nonreactive HEPATITIS A ANTIBODY, [id number] 12:06:00 Test Item Value Reference Range Comments HEPATITIS A IGG ANTIBODY (BEAKER) (test dbwj=7273) Reactive Nonreactive URINALYSIS W/ [id number] 11:35:00 Test Item Value Reference Range Comments COLOR (BEAKER) (test xtag=277) Yellow CLARITY (BEAKER) (test tzue=851) Clear SPECIFIC GRAVITY UA (BEAKER) (test ugse=160) 1.015 1.001-1.035 PH UA (BEAKER) (test wcpi=426) 5.5 5.0-8.0 PROTEIN UA (BEAKER) (test mkwv=368) 20 mg/dL Negative GLUCOSE UA (BEAKER) (test coaw=420) Negative Negative KETONES UA (BEAKER) (test jwln=485) Negative Negative BILIRUBIN UA (BEAKER) (test kazf=643) Negative Negative BLOOD UA (BEAKER) (test lqex=266) Trace Negative NITRITE UA (BEAKER) (test zbbk=116) Negative Negative LEUKOCYTE ESTERASE UA (BEAKER) (test mfzl=390) Negative Negative UROBILINOGEN UA (BEAKER) (test sjto=361) 0.2 mg/dL 0.2-1.0 RBC UA (BEAKER) (test rfug=156) 3 /HPF WBC UA (BEAKER) (test oqer=817) 0 /HPF SOURCE(BEAKER) (test rsvk=8185) HEPATITIS B CORE ANTIBODY, [id number] 11:24:00 Test Item Value Reference Range Comments HEPATITIS B CORE IGM ANTIBODY (BEAKER) (test Nonreactive Nonreactive baix=634) HEPATITIS A ANTIBODY, [id number] 11:24:00 Test Item Value Reference Range Comments HEPATITIS A IGM ANTIBODY (BEAKER) (test Nonreactive Nonreactive kooy=627) HEPATITIS B CORE ANTIBODY, [id number] 11:24:00 Test Item Value Reference Range Comments HEPATITIS B CORE TOTAL ANTIBODY (BEAKER) (test Nonreactive Nonreactive adfg=504) [id number] 11:24:00 Test Item Value Reference Range Comments RPR SCREEN (BEAKER) (test stqj=141) Nonreactive Nonreactive [id number] 11:24:00 Test Item Value Reference Range Comments PROSTATE SPECIFIC ANTIGEN (BEAKER) (test sgsw=833) 0.5 ng/mL 0.0-4.0 HEPATITIS B SURFACE [id number] 11:02:00 Test Item Value Reference Range Comments HEPATITIS B SURFACE ANTIGEN (2) (BEAKER) (test Nonreactive Nonreactive ojwa=1118) HIV-1 ANTIGEN WITH HIV-1/2 [id number] 11:02:00 Test Item Value Reference Range Comments HIV-1 ANTIGEN WITH HIV 1\\T\\2 ANTIBODY (2) Nonreactive Nonreactive (BEAKER) (test kghb=2251) T4, [id number] 10:40:00 Test Item Value Reference Range Comments FREE T4 (BEAKER) (test lpuq=710) 1.08 ng/dL 0.70-1.48 [id number] 10:40:00 Test Item Value Reference Range Comments THYROID STIMULATING HORMONE (BEAKER) (test 1.68 uIU/mL 0.35-4.94 rauu=731) VITAMIN D, [id number] 10:40:00 Test Item Value Reference Range Comments VITAMIN D 25-OH (BEAKER) (test stch=9255) 10.7 ng/mL 6.6-49.9 Effective 08/29/2017: Reference Range ChangeNew: 6.6-49.9 ng/mL Previous: 13.0 -47.8 ng/mLRecommended Vitamin D Target Range: 30.0-40.0 ng/[id number] 10:39:00 Test Item Value Reference Range Comments PREALBUMIN (BEAKER) (test acey=001) 16 mg/dL 14-45 IRON, [id number] 10:39:00 Test Item Value Reference Range Comments IRON (BEAKER) (test gtsg=506) 50 ug/dL 40-160 [id number] 10:39:00 Test Item Value Reference Range Comments FERRITIN (BEAKER) (test vijf=703) 16 ng/mL 5-275 [id number] 10:26:00 Test Item Value Reference Range Comments TRANSFERRIN (BEAKER) (test bzmt=629) 358 mg/dL 174-382 B-TYPE NATRIURETIC FACTOR (BNP)2017-08-30 10:25:00 Test Item Value Reference Range Comments B-TYPE NATRIURETIC PEPTIDE (BEAKER) (test 287 pg/mL 0-100 aaxc=628) URIC [id number] 10:21:00 Test Item Value Reference Range Comments URIC ACID (BEAKER) (test nfnx=056) 8.1 mg/dL 2.6-7.2 [id number] 10:21:00 Test Item Value Reference Range Comments MAGNESIUM (BEAKER) (test aqcz=579) 1.7 mg/dL 1.6-2.6 [id number] 10:21:00 Test Item Value Reference Range Comments PHOSPHORUS (BEAKER) (test ujii=191) 2.9 mg/dL 2.3-4.7 BASIC METABOLIC [id number] 10:21:00 Test Item Value Reference Range Comments SODIUM (BEAKER) (test 139 meq/L 136-145 xaxv=784) POTASSIUM (BEAKER) (test 4.3 meq/L 3.5-5.1 wznm=136) CHLORIDE (BEAKER) (test 105 meq/L 98-107 rpgg=767) CO2 (BEAKER) (test 28 meq/L 22-29 ajzh=283) BLOOD UREA NITROGEN 27 mg/dL 7-21 (BEAKER) (test gyoo=320) CREATININE (BEAKER) (test 1.11 mg/dL 0.57-1.25 zjfj=865) GLUCOSE RANDOM (BEAKER) 130 mg/dL 70-105 (test edov=174) CALCIUM (BEAKER) (test 9.0 mg/dL 8.4-10.2 xgai=895) EGFR (BEAKER) (test 69 mL/min/1.73 sq m ESTIMATED GFR IS NOT bidh=4536) ACCURATE CREATININE CLEARANCE IN PREDICTING GLOMERULAR FILTRATION RATE. ESTIMATED GFR IS NOT APPLICABLE FOR DIALYSIS PATIENTS. LIPID [id number] 10:21:00 Test Item Value Reference Range Comments TRIGLYCERIDES (BEAKER) (test mihd=882) 128 mg/dL CHOLESTEROL (BEAKER) (test ower=846) 147 mg/dL HDL CHOLESTEROL (BEAKER) (test ccxv=699) 35 mg/dL LDL CHOLESTEROL CALCULATED (BEAKER) (test 86 mg/dL euqn=282) Triglyceride Reference Range: Low Risk <150 Borderline 150- 199 High Risk 200-499 Very High Risk >=500Cholesterol Reference Range: Low Risk <200 Borderline 200-239 High Risk > 240HDL Cholesterol Reference Range: Low Risk >=60 High Risk <40LDL Cholesterol Reference Range: Optimal <100 Near Optimal 100-129 Borderline 130-159 High 160-189 Very High >=190HEPATIC FUNCTION [id number] 10:21:00 Test Item Value Reference Range Comments TOTAL PROTEIN (BEAKER) (test uqrm=934) 7.8 gm/dL 6.0-8.3 ALBUMIN (BEAKER) (test ljki=9065) 3.7 g/dL 3.5-5.0 BILIRUBIN TOTAL (BEAKER) (test ixjq=765) 0.6 mg/dL 0.2-1.2 BILIRUBIN DIRECT (BEAKER) (test aehw=187) 0.3 mg/dL 0.1-0.5 ALKALINE PHOSPHATASE (BEAKER) (test ohwb=699) 111 U/L 40-150 AST (SGOT) (BEAKER) (test tfvr=030) 24 U/L 5-34 ALT (SGPT) (BEAKER) (test yflx=167) 28 U/L 6-55 [id number] 10:21:00 Test Item Value Reference Range Comments AMYLASE (BEAKER) (test epkz=518) 30 U/L 25-125 GAMMA GLUTAMYL TRANSFERASE (GGT)2017-08-30 10:21:00 Test Item Value Reference Range Comments GAMMA GLUTAMYL TRANSFERASE (BEAKER) (test bzsb=419) 347 U/L 9-64 LACTATE DEHYDROGENASE (LDH)2017-08-30 10:21:00 Test Item Value Reference Range Comments LACTATE DEHYDROGENASE (BEAKER) (test hawl=687) 308 U/L 125-220 [id number] 10:21:00 Test Item Value Reference Range Comments LIPASE (BEAKER) (test jmue=305) 14 U/L 8-78 PLASMA FREE [id number] 10:14:00 Test Item Value Reference Range Comments HEMOGLOBIN PLASMA (BEAKER) (test hcdf=0841) < mg/dl 0.0-30.0 [id number] 10:12:00 Test Item Value Reference Range Comments PROTIME (BEAKER) (test daui=817) 26.0 seconds 11.7-14.7 INR (BEAKER) (test hnny=493) 2.4 <=5.9 PARTIAL THROMBOPLASTIN TIME (BEAKER) (test 38.9 seconds 22.5-36.0 ewkt=655) RECOMMENDED COUMADIN/WARFARIN INR THERAPY RANGESSTANDARD DOSE: 2.0 - 3.0 Includes: PROPHYLAXIS forvenous thrombosis, systemic embolization; TREATMENT for venous thrombosis and/or pulmonary embolus.HIGH RISK: Target INR is 2.5-3.5 for patients with mechanical heart valves.PROTHROMBIN [id number] 10:11: 00 Test Item Value Reference Range Comments PROTIME (BEAKER) (test xkcu=275) 26.0 seconds 11.7-14.7 INR (BEAKER) (test rlyl=026) 2.4 <=5.9 RECOMMENDED COUMADIN/WARFARIN INR THERAPY RANGESSTANDARD DOSE: 2.0 - 3.0 Includes: PROPHYLAXIS forvenous thrombosis, systemic embolization; TREATMENT for venous thrombosis and/or pulmonary embolus.HIGH RISK: Target INR is 2.5-3.5 for patients with mechanical heart valves.RETICULOCYTE [id number] 10:01:00 Test Item Value Reference Range Comments RETICULOCYTE COUNT PCT (BEAKER) (test xxrd=265) 2.4 % 0.5-1.8 CBC W/PLT COUNT & AUTO [id number] 10:01:00 Test Item Value Reference Range Comments WHITE BLOOD CELL COUNT (BEAKER) (test uzzn=490) 7.4 K/ L 3.5-10.5 RED BLOOD CELL COUNT (BEAKER) (test nbaa=671) 4.79 M/ L 4.63-6.08 HEMOGLOBIN (BEAKER) (test xtuc=775) 11.5 GM/DL 13.7-17.5 HEMATOCRIT (BEAKER) (test awht=368) 36.9 % 40.1-51.0 MEAN CORPUSCULAR VOLUME (BEAKER) (test pbyw=270) 77.0 fL 79.0-92.2 MEAN CORPUSCULAR HEMOGLOBIN (BEAKER) (test 24.0 pg 25.7-32.2 byjl=442) MEAN CORPUSCULAR HEMOGLOBIN CONC (BEAKER) (test 31.2 GM/DL 32.3-36.5 uhkh=120) RED CELL DISTRIBUTION WIDTH (BEAKER) (test 16.7 % 11.6-14.4 rpat=287) PLATELET COUNT (BEAKER) (test rnss=132) 175 K/CU MM 150-450 MEAN PLATELET VOLUME (BEAKER) (test jkxx=157) 10.4 fL 9.4-12.4 NUCLEATED RED BLOOD CELLS (BEAKER) (test 0 /100 WBC 0-0 zxed=758) NEUTROPHILS RELATIVE PERCENT (BEAKER) (test 68 % cchi=534) LYMPHOCYTES RELATIVE PERCENT (BEAKER) (test 21 % mpee=093) MONOCYTES RELATIVE PERCENT (BEAKER) (test 7 % wyrl=504) EOSINOPHILS RELATIVE PERCENT (BEAKER) (test 3 % kxmf=107) BASOPHILS RELATIVE PERCENT (BEAKER) (test 1 % xukg=147) NEUTROPHILS ABSOLUTE COUNT (BEAKER) (test 4.97 K/ L 1.78-5.38 gopb=827) LYMPHOCYTES ABSOLUTE COUNT (BEAKER) (test 1.56 K/ L 1.32-3.57 bhlt=970) MONOCYTES ABSOLUTE COUNT (BEAKER) (test 0.50 K/ L 0.30-0.82 cxrj=833) EOSINOPHILS ABSOLUTE COUNT (BEAKER) (test 0.20 K/ L 0.04-0.54 emth=517) BASOPHILS ABSOLUTE COUNT (BEAKER) (test 0.08 K/ L 0.01-0.08 btbm=397) IMMATURE GRANULOCYTES-RELATIVE PERCENT (BEAKER) 1 % 0-1 (test shki=3833) PLASMA FREE [id number] 11:32:00 Test Item Value Reference Range Comments HEMOGLOBIN PLASMA (BEAKER) (test vcsc=6046) 30.0 mg/dl 0.0-30.0 [id number] 11:15:00 Test Item Value Reference Range Comments MAGNESIUM (BEAKER) (test hkzs=157) 1.9 mg/dL 1.6-2.6 BASIC METABOLIC [id number] 11:15:00 Test Item Value Reference Range Comments SODIUM (BEAKER) (test 136 meq/L 136-145 wzht=491) POTASSIUM (BEAKER) (test 4.6 meq/L 3.5-5.1 xbxw=951) CHLORIDE (BEAKER) (test 102 meq/L 98-107 cfpy=527) CO2 (BEAKER) (test 28 meq/L 22-29 ymqb=864) BLOOD UREA NITROGEN 24 mg/dL 7-21 (BEAKER) (test jeue=987) CREATININE (BEAKER) (test 1.22 mg/dL 0.57-1.25 cefc=799) GLUCOSE RANDOM (BEAKER) 143 mg/dL 70-105 (test wnla=005) CALCIUM (BEAKER) (test 9.3 mg/dL 8.4-10.2 vzcx=660) EGFR (BEAKER) (test 62 mL/min/1.73 sq m ESTIMATED GFR IS NOT hqlb=4598) ACCURATE CREATININE CLEARANCE IN PREDICTING GLOMERULAR FILTRATION RATE. ESTIMATED GFR IS NOT APPLICABLE FOR DIALYSIS PATIENTS. HEPATIC FUNCTION [id number] 11:15:00 Test Item Value Reference Range Comments TOTAL PROTEIN (BEAKER) (test aysx=551) 7.9 gm/dL 6.0-8.3 ALBUMIN (BEAKER) (test krnj=8459) 3.7 g/dL 3.5-5.0 BILIRUBIN TOTAL (BEAKER) (test xdok=259) 0.5 mg/dL 0.2-1.2 BILIRUBIN DIRECT (BEAKER) (test ryfu=219) 0.2 mg/dL 0.1-0.5 ALKALINE PHOSPHATASE (BEAKER) (test visr=577) 107 U/L 40-150 AST (SGOT) (BEAKER) (test drfe=812) 26 U/L 5-34 ALT (SGPT) (BEAKER) (test nazv=690) 29 U/L 6-55 LACTATE DEHYDROGENASE (LDH)2017-08-03 11:15:00 Test Item Value Reference Range Comments LACTATE DEHYDROGENASE (BEAKER) (test zaic=539) 258 U/L 125-220 [id number] 11:09:00 Test Item Value Reference Range Comments PREALBUMIN (BEAKER) (test mlbf=531) 17 mg/dL 14-45 PROTHROMBIN [id number] 11:03:00 Test Item Value Reference Range Comments PROTIME (BEAKER) (test hidj=131) 22.5 seconds 11.7-14.7 INR (BEAKER) (test zles=547) 2.0 <=5.9 RECOMMENDED COUMADIN/WARFARIN INR THERAPY RANGESSTANDARD DOSE: 2.0 - 3.0 Includes: PROPHYLAXIS forvenous thrombosis, systemic embolization; TREATMENT for venous thrombosis and/or pulmonary embolus.HIGH RISK: Target INR is 2.5-3.5 for patients with mechanical heart valves.CBC W/PLT COUNT & AUTO [id number] 10:55:00 Test Item Value Reference Range Comments WHITE BLOOD CELL COUNT (BEAKER) (test ulsb=942) 8.0 K/ L 3.5-10.5 RED BLOOD CELL COUNT (BEAKER) (test rggv=814) 4.67 M/ L 4.63-6.08 HEMOGLOBIN (BEAKER) (test bbpr=805) 10.9 GM/DL 13.7-17.5 HEMATOCRIT (BEAKER) (test xvwy=983) 35.9 % 40.1-51.0 MEAN CORPUSCULAR VOLUME (BEAKER) (test cbzp=954) 76.9 fL 79.0-92.2 MEAN CORPUSCULAR HEMOGLOBIN (BEAKER) (test 23.3 pg 25.7-32.2 aecv=005) MEAN CORPUSCULAR HEMOGLOBIN CONC (BEAKER) (test 30.4 GM/DL 32.3-36.5 awov=719) RED CELL DISTRIBUTION WIDTH (BEAKER) (test 15.0 % 11.6-14.4 mtsz=272) PLATELET COUNT (BEAKER) (test pbzk=054) 198 K/CU MM 150-450 MEAN PLATELET VOLUME (BEAKER) (test oowg=633) 10.2 fL 9.4-12.4 NUCLEATED RED BLOOD CELLS (BEAKER) (test 0 /100 WBC 0-0 ceub=297) NEUTROPHILS RELATIVE PERCENT (BEAKER) (test 69 % irfs=869) LYMPHOCYTES RELATIVE PERCENT (BEAKER) (test 20 % umbe=146) MONOCYTES RELATIVE PERCENT (BEAKER) (test 8 % kuvy=324) EOSINOPHILS RELATIVE PERCENT (BEAKER) (test 2 % ouhr=891) BASOPHILS RELATIVE PERCENT (BEAKER) (test 1 % eglr=778) NEUTROPHILS ABSOLUTE COUNT (BEAKER) (test 5.50 K/ L 1.78-5.38 lgvj=621) LYMPHOCYTES ABSOLUTE COUNT (BEAKER) (test 1.60 K/ L 1.32-3.57 ttup=113) MONOCYTES ABSOLUTE COUNT (BEAKER) (test 0.61 K/ L 0.30-0.82 tumy=955) EOSINOPHILS ABSOLUTE COUNT (BEAKER) (test 0.18 K/ L 0.04-0.54 jwbd=772) BASOPHILS ABSOLUTE COUNT (BEAKER) (test 0.07 K/ L 0.01-0.08 bxoo=346) IMMATURE GRANULOCYTES-RELATIVE PERCENT (BEAKER) 1 % 0-1 (test xjaq=4366) [id number] 12:32:00 Test Item Value Reference Range Comments Coagulation (test 29.9 SEC 12.0-14.7 code=PT-T) Coagulation (test 2.7 ATTENTION: READ code=INR) CAREFULLY -The recommended therapeutic ranges for oral anticoagulanttreatments are: Low Intensity: 1.5 - 2.0 Moderate Intensity: 2.0 - 3.0 High Intensity (1): 2.5 - 3.5 High Intensity (2): 3.0 - 4.0 CRITICAL: > 4.0 CBC W/PLT COUNT & AUTO [id number] 11:34:00 Test Item Value Reference Range Comments WHITE BLOOD CELL COUNT (BEAKER) (test pbrf=899) 6.9 K/ L 4.0-10.0 RED BLOOD CELL COUNT (BEAKER) (test jfoe=547) 4.50 M/ L 4.20-5.80 HEMOGLOBIN (BEAKER) (test qywh=395) 11.2 GM/DL 13.0-16.8 HEMATOCRIT (BEAKER) (test cwjw=336) 35.4 % 40.0-50.0 MEAN CORPUSCULAR VOLUME (BEAKER) (test htyu=732) 78.8 fL 82.0-98.0 MEAN CORPUSCULAR HEMOGLOBIN (BEAKER) (test 25.0 pg 27.0-33.0 netr=307) MEAN CORPUSCULAR HEMOGLOBIN CONC (BEAKER) (test 31.7 GM/DL 32.0-36.0 pnjl=986) RED CELL DISTRIBUTION WIDTH (BEAKER) (test 14.1 % 10.3-14.2 vlna=209) PLATELET COUNT (BEAKER) (test txpp=154) 175 K/CU MM 150-430 MEAN PLATELET VOLUME (BEAKER) (test kdvj=884) 8.0 fL 6.5-10.5 NUCLEATED RED BLOOD CELLS (BEAKER) (test 0 /100 WBC 0-0 rwfv=314) NEUTROPHILS RELATIVE PERCENT (BEAKER) (test 65 % nlhy=245) LYMPHOCYTES RELATIVE PERCENT (BEAKER) (test 25 % xayo=699) MONOCYTES RELATIVE PERCENT (BEAKER) (test 8 % klmd=595) EOSINOPHILS RELATIVE PERCENT (BEAKER) (test 2 % csem=243) BASOPHILS RELATIVE PERCENT (BEAKER) (test 1 % jjbh=022) NEUTROPHILS ABSOLUTE COUNT (BEAKER) (test 4.46 K/ L 1.80-8.00 oioz=511) LYMPHOCYTES ABSOLUTE COUNT (BEAKER) (test 1.71 K/ L 1.48-4.50 kaqa=568) MONOCYTES ABSOLUTE COUNT (BEAKER) (test 0.55 K/ L 0.00-1.30 fhdn=981) EOSINOPHILS ABSOLUTE COUNT (BEAKER) (test 0.14 K/ L 0.00-0.50 plmp=195) BASOPHILS ABSOLUTE COUNT (BEAKER) (test 0.05 K/ L 0.00-0.20 zvcz=128) 0.00PLASMA FREE [id number] 11:25:00 Test Item Value Reference Range Comments HEMOGLOBIN PLASMA (BEAKER) (test voos=5761) < mg/dl 0.0-30.0 [id number] 11:11:00 Test Item Value Reference Range Comments PREALBUMIN (BEAKER) (test xzkf=919) 17 mg/dL 14-45 [id number] 11:04:00 Test Item Value Reference Range Comments MAGNESIUM (BEAKER) (test jqwf=986) 1.7 mg/dL 1.6-2.6 BASIC METABOLIC [id number] 11:04:00 Test Item Value Reference Range Comments SODIUM (BEAKER) (test 138 meq/L 136-145 bjkn=111) POTASSIUM (BEAKER) (test 4.3 meq/L 3.5-5.1 wfni=918) CHLORIDE (BEAKER) (test 100 meq/L 98-107 vuaf=822) CO2 (BEAKER) (test 29 meq/L 22-29 inyx=379) BLOOD UREA NITROGEN 26 mg/dL 7-21 (BEAKER) (test sqrk=440) CREATININE (BEAKER) (test 1.24 mg/dL 0.57-1.25 tayk=156) GLUCOSE RANDOM (BEAKER) 211 mg/dL 70-105 (test fqxr=119) CALCIUM (BEAKER) (test 8.9 mg/dL 8.4-10.2 wkrh=746) EGFR (BEAKER) (test 61 mL/min/1.73 sq m ESTIMATED GFR IS NOT gumt=9202) ACCURATE CREATININE CLEARANCE IN PREDICTING GLOMERULAR FILTRATION RATE. ESTIMATED GFR IS NOT APPLICABLE FOR DIALYSIS PATIENTS. HEPATIC FUNCTION [id number] 11:04:00 Test Item Value Reference Range Comments TOTAL PROTEIN (BEAKER) (test vxhg=869) 7.4 gm/dL 6.0-8.3 ALBUMIN (BEAKER) (test naqw=6244) 3.6 g/dL 3.5-5.0 BILIRUBIN TOTAL (BEAKER) (test qcac=828) 0.6 mg/dL 0.2-1.2 BILIRUBIN DIRECT (BEAKER) (test oecf=727) 0.3 mg/dL 0.1-0.5 ALKALINE PHOSPHATASE (BEAKER) (test iegr=461) 117 U/L 40-150 AST (SGOT) (BEAKER) (test spqd=070) 25 U/L 5-34 ALT (SGPT) (BEAKER) (test gqcz=149) 40 U/L 6-55 LACTATE DEHYDROGENASE (LDH)[id number] 11:04:00 Test Item Value Reference Range Comments LACTATE DEHYDROGENASE (BEAKER) (test vpgi=437) 253 U/L 125-220 PROTHROMBIN [id number] 10:54:00 Test Item Value Reference Range Comments PROTIME (BEAKER) (test fcyy=319) 20.9 seconds 11.7-14.7 INR (BEAKER) (test adqg=843) 1.8 <=5.9 RECOMMENDED COUMADIN/WARFARIN INR THERAPY RANGESSTANDARD DOSE: 2.0 - 3.0 Includes: PROPHYLAXIS forvenous thrombosis, systemic embolization; TREATMENT for venous thrombosis and/or pulmonary embolus.HIGH RISK: Target INR is 2.5-3.5 for patients with mechanical heart valves.T4, [id number] 14:16:00 Test Item Value Reference Range Comments FREE T4 (BEAKER) (test ykjv=067) 1.04 ng/dL 0.70-1.48 [id number] 14:16:00 Test Item Value Reference Range Comments THYROID STIMULATING HORMONE (BEAKER) (test 1.79 uIU/mL 0.35-4.94 znku=913) [id number] 12:33:00 Test Item Value Reference Range Comments PREALBUMIN (BEAKER) (test gvwb=708) 18 mg/dL 14-45 [id number] 11:48:00 Test Item Value Reference Range Comments MAGNESIUM (BEAKER) (test dkcw=020) 1.9 mg/dL 1.6-2.6 BASIC METABOLIC [id number] 11:48:00 Test Item Value Reference Range Comments SODIUM (BEAKER) (test 140 meq/L 136-145 kvup=365) POTASSIUM (BEAKER) (test 4.5 meq/L 3.5-5.1 jajt=340) CHLORIDE (BEAKER) (test 103 meq/L 98-107 sjuh=651) CO2 (BEAKER) (test 30 meq/L 22-29 bvwo=130) BLOOD UREA NITROGEN 30 mg/dL 7-21 (BEAKER) (test pvzr=610) CREATININE (BEAKER) (test 1.35 mg/dL 0.57-1.25 zzhn=991) GLUCOSE RANDOM (BEAKER) 164 mg/dL 70-105 (test egpj=219) CALCIUM (BEAKER) (test 8.9 mg/dL 8.4-10.2 eoxl=266) EGFR (BEAKER) (test 55 mL/min/1.73 sq m ESTIMATED GFR IS NOT qpxj=9032) ACCURATE CREATININE CLEARANCE IN PREDICTING GLOMERULAR FILTRATION RATE. ESTIMATED GFR IS NOT APPLICABLE FOR DIALYSIS PATIENTS. HEPATIC FUNCTION [id number] 11:48:00 Test Item Value Reference Range Comments TOTAL PROTEIN (BEAKER) (test jjcz=992) 7.4 gm/dL 6.0-8.3 ALBUMIN (BEAKER) (test gkrq=0319) 3.5 g/dL 3.5-5.0 BILIRUBIN TOTAL (BEAKER) (test pler=916) 0.5 mg/dL 0.2-1.2 BILIRUBIN DIRECT (BEAKER) (test liii=485) 0.2 mg/dL 0.1-0.5 ALKALINE PHOSPHATASE (BEAKER) (test hifr=159) 119 U/L 40-150 AST (SGOT) (BEAKER) (test bwdq=405) 27 U/L 5-34 ALT (SGPT) (BEAKER) (test hnvc=376) 38 U/L 6-55 LACTATE DEHYDROGENASE (LDH)2017-04-20 11:48:00 Test Item Value Reference Range Comments LACTATE DEHYDROGENASE (BEAKER) (test rmli=646) 263 U/L 125-220 PROTHROMBIN [id number] 11:34:00 Test Item Value Reference Range Comments PROTIME (BEAKER) (test fuii=034) 26.7 seconds 11.7-14.7 INR (BEAKER) (test rkff=594) 2.5 <=5.9 RECOMMENDED COUMADIN/WARFARIN INR THERAPY RANGESSTANDARD DOSE: 2.0 - 3.0 Includes: PROPHYLAXIS forvenous thrombosis, systemic embolization; TREATMENT for venous thrombosis and/or pulmonary embolus.HIGH RISK: Target INR is 2.5-3.5 for patients with mechanical heart valves.PLASMA FREE [id number] 11:34 :00 Test Item Value Reference Range Comments HEMOGLOBIN PLASMA (BEAKER) (test sklg=0625) 30.0 mg/dl 0.0-30.0 CBC W/PLT COUNT & AUTO [id number] 11:32:00 Test Item Value Reference Range Comments WHITE BLOOD CELL COUNT (BEAKER) (test lknp=329) 8.3 K/ L 4.0-10.0 RED BLOOD CELL COUNT (BEAKER) (test xznt=457) 4.53 M/ L 4.20-5.80 HEMOGLOBIN (BEAKER) (test piwf=825) 11.7 GM/DL 13.0-16.8 HEMATOCRIT (BEAKER) (test msvg=278) 36.3 % 40.0-50.0 MEAN CORPUSCULAR VOLUME (BEAKER) (test yqve=048) 80.0 fL 82.0-98.0 MEAN CORPUSCULAR HEMOGLOBIN (BEAKER) (test 25.7 pg 27.0-33.0 uojp=682) MEAN CORPUSCULAR HEMOGLOBIN CONC (BEAKER) (test 32.2 GM/DL 32.0-36.0 ljos=175) RED CELL DISTRIBUTION WIDTH (BEAKER) (test 15.6 % 10.3-14.2 tmfm=171) PLATELET COUNT (BEAKER) (test ozkr=484) 180 K/CU MM 150-430 MEAN PLATELET VOLUME (BEAKER) (test conb=363) 7.8 fL 6.5-10.5 NUCLEATED RED BLOOD CELLS (BEAKER) (test 0 /100 WBC 0-0 urfl=410) NEUTROPHILS RELATIVE PERCENT (BEAKER) (test 63 % mmuz=721) LYMPHOCYTES RELATIVE PERCENT (BEAKER) (test 27 % mwba=332) MONOCYTES RELATIVE PERCENT (BEAKER) (test 8 % knup=486) EOSINOPHILS RELATIVE PERCENT (BEAKER) (test 2 % vzib=740) BASOPHILS RELATIVE PERCENT (BEAKER) (test 1 % uvli=587) NEUTROPHILS ABSOLUTE COUNT (BEAKER) (test 5.19 K/ L 1.80-8.00 cbbw=273) LYMPHOCYTES ABSOLUTE COUNT (BEAKER) (test 2.22 K/ L 1.48-4.50 rddx=376) MONOCYTES ABSOLUTE COUNT (BEAKER) (test 0.65 K/ L 0.00-1.30 xffv=652) EOSINOPHILS ABSOLUTE COUNT (BEAKER) (test 0.17 K/ L 0.00-0.50 hyko=997) BASOPHILS ABSOLUTE COUNT (BEAKER) (test 0.07 K/ L 0.00-0.20 wlyy=713) [id number] 10:44:00 Test Item Value Reference Range Comments FERRITIN (BEAKER) (test lron=552) 26 ng/mL 5-275 Effective 10/06/2014: Reference Range ChangeNew: Male 5-275 Previous: Male 22-322 Female 5-275 Female 10-291PLASMA FREE [id number] 10:28:00 Test Item Value Reference Range Comments HEMOGLOBIN PLASMA (BEAKER) (test wurr=0713) < mg/dl 0.0-30.0 [id number] 10:23:00 Test Item Value Reference Range Comments PREALBUMIN (BEAKER) (test hbrf=627) 18 mg/dL 14-45 IRON, TIBC, % SAT. (WITHOUT FERRITIN)2017-03-16 10:23:00 Test Item Value Reference Range Comments IRON (BEAKER) (test vtpt=643) 52 ug/dL 40-160 TOTAL IRON BINDING CAPACITY (BEAKER) (test 413 ug/dL 250-450 tqww=476) IRON % SATURATION (2) (BEAKER) (test uhkx=0990) 13 % 20-55 [id number] 10:22:00 Test Item Value Reference Range Comments MAGNESIUM (BEAKER) (test kwmz=658) 1.8 mg/dL 1.6-2.6 BASIC METABOLIC [id number] 10:22:00 Test Item Value Reference Range Comments SODIUM (BEAKER) (test 132 meq/L 136-145 wsbl=492) POTASSIUM (BEAKER) (test 4.5 meq/L 3.5-5.1 dplc=831) CHLORIDE (BEAKER) (test 97 meq/L 98-107 brtm=643) CO2 (BEAKER) (test 25 meq/L 22-29 clws=547) BLOOD UREA NITROGEN 28 mg/dL 7-21 (BEAKER) (test dunm=238) CREATININE (BEAKER) (test 1.40 mg/dL 0.57-1.25 bxxq=936) GLUCOSE RANDOM (BEAKER) 278 mg/dL 70-105 (test wpdp=707) CALCIUM (BEAKER) (test 9.1 mg/dL 8.4-10.2 ebrb=338) EGFR (BEAKER) (test 53 mL/min/1.73 sq m ESTIMATED GFR IS NOT isjs=7063) ACCURATE CREATININE CLEARANCE IN PREDICTING GLOMERULAR FILTRATION RATE. ESTIMATED GFR IS NOT APPLICABLE FOR DIALYSIS PATIENTS. LIPID [id number] 10:22:00 Test Item Value Reference Range Comments TRIGLYCERIDES (BEAKER) (test avpo=871) 227 mg/dL CHOLESTEROL (BEAKER) (test xwki=022) 174 mg/dL HDL CHOLESTEROL (BEAKER) (test ijzo=283) 32 mg/dL LDL CHOLESTEROL CALCULATED (BEAKER) (test 97 mg/dL teuz=180) Triglyceride Reference Range: Low Risk <150 Borderline 150- 199 High Risk 200-499 Very High Risk >=500Cholesterol Reference Range: Low Risk <200 Borderline 200-239 High Risk > 240HDL Cholesterol Reference Range: Low Risk >=60 High Risk <40LDL Cholesterol Reference Range: Optimal <100 Near Optimal 100-129 Borderline 130-159 High 160-189 Very High >=190HEPATIC FUNCTION [id number] 10:22:00 Test Item Value Reference Range Comments TOTAL PROTEIN (BEAKER) (test jspo=094) 7.4 gm/dL 6.0-8.3 ALBUMIN (BEAKER) (test dpud=2410) 3.5 g/dL 3.5-5.0 BILIRUBIN TOTAL (BEAKER) (test ewun=833) 0.4 mg/dL 0.2-1.2 BILIRUBIN DIRECT (BEAKER) (test emud=076) 0.2 mg/dL 0.1-0.5 ALKALINE PHOSPHATASE (BEAKER) (test jeqz=500) 126 U/L 40-150 AST (SGOT) (BEAKER) (test fvsw=469) 23 U/L 5-34 ALT (SGPT) (BEAKER) (test cnro=620) 33 U/L 6-55 LACTATE DEHYDROGENASE (LDH)2017-03-16 10:22:00 Test Item Value Reference Range Comments LACTATE DEHYDROGENASE (BEAKER) (test ebwc=820) 274 U/L 125-220 PROTHROMBIN [id number] 10:12:00 Test Item Value Reference Range Comments PROTIME (BEAKER) (test grnt=183) 20.8 seconds 11.7-14.7 INR (BEAKER) (test ihql=365) 1.8 <=5.9 RECOMMENDED COUMADIN/WARFARIN INR THERAPY RANGESSTANDARD DOSE: 2.0 - 3.0 Includes: PROPHYLAXIS forvenous thrombosis, systemic embolization; TREATMENT for venous thrombosis and/or pulmonary embolus.HIGH RISK: Target INR is 2.5-3.5 for patients with mechanical heart valves.CBC W/PLT COUNT & AUTO [id number] 10:06:00 Test Item Value Reference Range Comments WHITE BLOOD CELL COUNT (BEAKER) (test icvv=792) 8.1 K/ L 4.0-10.0 RED BLOOD CELL COUNT (BEAKER) (test rist=213) 4.55 M/ L 4.20-5.80 HEMOGLOBIN (BEAKER) (test pewf=526) 12.3 GM/DL 13.0-16.8 HEMATOCRIT (BEAKER) (test uouj=952) 36.9 % 40.0-50.0 MEAN CORPUSCULAR VOLUME (BEAKER) (test sjsj=372) 81.2 fL 82.0-98.0 MEAN CORPUSCULAR HEMOGLOBIN (BEAKER) (test 26.9 pg 27.0-33.0 rpqc=022) MEAN CORPUSCULAR HEMOGLOBIN CONC (BEAKER) (test 33.2 GM/DL 32.0-36.0 ewsi=287) RED CELL DISTRIBUTION WIDTH (BEAKER) (test 15.1 % 10.3-14.2 lshn=669) PLATELET COUNT (BEAKER) (test jeeo=241) 171 K/CU MM 150-430 MEAN PLATELET VOLUME (BEAKER) (test zznm=470) 8.4 fL 6.5-10.5 NUCLEATED RED BLOOD CELLS (BEAKER) (test 0 /100 WBC 0-0 hmgj=252) NEUTROPHILS RELATIVE PERCENT (BEAKER) (test 61 % ymms=485) LYMPHOCYTES RELATIVE PERCENT (BEAKER) (test 29 % pzxn=971) MONOCYTES RELATIVE PERCENT (BEAKER) (test 8 % czjj=708) EOSINOPHILS RELATIVE PERCENT (BEAKER) (test 2 % ymbd=149) BASOPHILS RELATIVE PERCENT (BEAKER) (test 1 % xldd=617) NEUTROPHILS ABSOLUTE COUNT (BEAKER) (test 4.98 K/ L 1.80-8.00 ueqm=910) LYMPHOCYTES ABSOLUTE COUNT (BEAKER) (test 2.32 K/ L 1.48-4.50 dfom=162) MONOCYTES ABSOLUTE COUNT (BEAKER) (test 0.62 K/ L 0.00-1.30 gddn=129) EOSINOPHILS ABSOLUTE COUNT (BEAKER) (test 0.15 K/ L 0.00-0.50 kcns=885) BASOPHILS ABSOLUTE COUNT (BEAKER) (test 0.05 K/ L 0.00-0.20 tnms=367) [id number] 10:31:00 Test Item Value Reference Range Comments PREALBUMIN (BEAKER) (test reih=259) 17 mg/dL 14-45 IRON, TIBC, % SAT. (WITHOUT FERRITIN)2017-02-02 10:31:00 Test Item Value Reference Range Comments IRON (BEAKER) (test kjds=574) 271 ug/dL 40-160 TOTAL IRON BINDING CAPACITY (BEAKER) (test 351 ug/dL 250-450 dbau=379) IRON % SATURATION (2) (BEAKER) (test vkkc=2556) 77 % 20-55 [id number] 10:24:00 Test Item Value Reference Range Comments FERRITIN (BEAKER) (test bcol=579) 45 ng/mL 5-275 Effective 10/06/2014: Reference Range ChangeNew: Male 5-275 Previous: Male 22-322 Female 5-275 Female [id number] 10:05: 00 Test Item Value Reference Range Comments MAGNESIUM (BEAKER) (test mcil=935) 1.7 mg/dL 1.6-2.6 BASIC METABOLIC [id number] 10:05:00 Test Item Value Reference Range Comments SODIUM (BEAKER) (test 137 meq/L 136-145 nhhy=823) POTASSIUM (BEAKER) (test 3.6 meq/L 3.5-5.1 oagx=708) CHLORIDE (BEAKER) (test 98 meq/L 98-107 oiqp=352) CO2 (BEAKER) (test 29 meq/L 22-29 dths=603) BLOOD UREA NITROGEN 16 mg/dL 7-21 (BEAKER) (test svvy=395) CREATININE (BEAKER) (test 1.31 mg/dL 0.57-1.25 hehb=564) GLUCOSE RANDOM (BEAKER) 284 mg/dL 70-105 (test pzzw=868) CALCIUM (BEAKER) (test 8.7 mg/dL 8.4-10.2 ppmi=268) EGFR (BEAKER) (test 57 mL/min/1.73 sq m ESTIMATED GFR IS NOT mjhc=5656) ACCURATE CREATININE CLEARANCE IN PREDICTING GLOMERULAR FILTRATION RATE. ESTIMATED GFR IS NOT APPLICABLE FOR DIALYSIS PATIENTS. HEPATIC FUNCTION [id number] 10:05:00 Test Item Value Reference Range Comments TOTAL PROTEIN (BEAKER) (test hurj=938) 7.4 gm/dL 6.0-8.3 ALBUMIN (BEAKER) (test mhzq=1905) 3.6 g/dL 3.5-5.0 BILIRUBIN TOTAL (BEAKER) (test fjzo=284) 0.6 mg/dL 0.2-1.2 BILIRUBIN DIRECT (BEAKER) (test cuor=484) 0.3 mg/dL 0.1-0.5 ALKALINE PHOSPHATASE (BEAKER) (test vjza=907) 124 U/L 40-150 AST (SGOT) (BEAKER) (test jkft=934) 24 U/L 5-34 ALT (SGPT) (BEAKER) (test kiqj=948) 37 U/L 6-55 LACTATE DEHYDROGENASE (LDH)2017-02-02 10:05:00 Test Item Value Reference Range Comments LACTATE DEHYDROGENASE (BEAKER) (test wvnq=090) 258 U/L 125-220 PROTHROMBIN [id number] 10:01:00 Test Item Value Reference Range Comments PROTIME (BEAKER) (test kmld=050) 19.9 seconds 11.7-14.7 INR (BEAKER) (test dfex=070) 1.7 <=5.9 RECOMMENDED COUMADIN/WARFARIN INR THERAPY RANGESSTANDARD DOSE: 2.0 - 3.0 Includes: PROPHYLAXIS forvenous thrombosis, systemic embolization; TREATMENT for venous thrombosis and/or pulmonary embolus.HIGH RISK: Target INR is 2.5-3.5 for patients with mechanical heart valves.CBC W/PLT COUNT & AUTO [id number] 09:49:00 Test Item Value Reference Range Comments WHITE BLOOD CELL COUNT (BEAKER) (test lrhh=693) 7.1 K/ L 4.0-10.0 RED BLOOD CELL COUNT (BEAKER) (test gdnq=458) 4.41 M/ L 4.20-5.80 HEMOGLOBIN (BEAKER) (test tsrk=747) 12.6 GM/DL 13.0-16.8 HEMATOCRIT (BEAKER) (test lces=417) 39.9 % 40.0-50.0 MEAN CORPUSCULAR VOLUME (BEAKER) (test ektc=300) 90.4 fL 82.0-98.0 MEAN CORPUSCULAR HEMOGLOBIN (BEAKER) (test 28.6 pg 27.0-33.0 thlf=969) MEAN CORPUSCULAR HEMOGLOBIN CONC (BEAKER) (test 31.6 GM/DL 32.0-36.0 msry=656) RED CELL DISTRIBUTION WIDTH (BEAKER) (test 15.3 % 10.3-14.2 jvyw=105) PLATELET COUNT (BEAKER) (test dtfg=144) 188 K/CU MM 150-430 MEAN PLATELET VOLUME (BEAKER) (test kjah=177) 7.7 fL 6.5-10.5 NUCLEATED RED BLOOD CELLS (BEAKER) (test 0 /100 WBC 0-0 ntns=537) NEUTROPHILS RELATIVE PERCENT (BEAKER) (test 68 % mlbp=057) LYMPHOCYTES RELATIVE PERCENT (BEAKER) (test 22 % nsir=612) MONOCYTES RELATIVE PERCENT (BEAKER) (test 8 % nuqz=428) EOSINOPHILS RELATIVE PERCENT (BEAKER) (test 1 % xwmz=583) BASOPHILS RELATIVE PERCENT (BEAKER) (test 0 % cryo=221) NEUTROPHILS ABSOLUTE COUNT (BEAKER) (test 4.82 K/ L 1.80-8.00 snnn=823) LYMPHOCYTES ABSOLUTE COUNT (BEAKER) (test 1.54 K/ L 1.48-4.50 cjdq=614) MONOCYTES ABSOLUTE COUNT (BEAKER) (test 0.60 K/ L 0.00-1.30 vfwq=498) EOSINOPHILS ABSOLUTE COUNT (BEAKER) (test 0.11 K/ L 0.00-0.50 vupr=554) BASOPHILS ABSOLUTE COUNT (BEAKER) (test 0.02 K/ L 0.00-0.20 ljhx=293) 0.00POCT-GLUCOSE [id number] 09:10:00 Test Item Value Reference Range Comments POC-GLUCOSE METER (BEAKER) 221 mg/dL 70-110 TESTED AT [address] (test efff=3598) [facility] [address] B-TYPE NATRIURETIC FACTOR (BNP)2017-01-19 02:46:00 Test Item Value Reference Range Comments B-TYPE NATRIURETIC PEPTIDE (BEAKER) (test 254 pg/mL 0-100 rqoo=988) [id number] 02:43:00 Test Item Value Reference Range Comments LIPASE (BEAKER) (test anji=599) 19 U/L 8-78 [id number] 02:43:00 Test Item Value Reference Range Comments AMYLASE (BEAKER) (test vzys=112) 15 U/L 25-125 BASIC METABOLIC [id number] 02:43:00 Test Item Value Reference Range Comments SODIUM (BEAKER) (test 133 meq/L 136-145 dxgn=377) POTASSIUM (BEAKER) (test 4.2 meq/L 3.5-5.1 xcuo=729) CHLORIDE (BEAKER) (test 94 meq/L 98-107 rivy=098) CO2 (BEAKER) (test 29 meq/L 22-29 fjbq=764) BLOOD UREA NITROGEN 18 mg/dL 7-21 (BEAKER) (test pzsn=257) CREATININE (BEAKER) (test 1.25 mg/dL 0.57-1.25 kbup=739) GLUCOSE RANDOM (BEAKER) 198 mg/dL 70-105 (test mgrd=762) CALCIUM (BEAKER) (test 8.9 mg/dL 8.4-10.2 wdpx=412) EGFR (BEAKER) (test 60 mL/min/1.73 sq m ESTIMATED GFR IS NOT sepr=8084) ACCURATE CREATININE CLEARANCE IN PREDICTING GLOMERULAR FILTRATION RATE. ESTIMATED GFR IS NOT APPLICABLE FOR DIALYSIS PATIENTS. HEPATIC FUNCTION [id number] 02:43:00 Test Item Value Reference Range Comments TOTAL PROTEIN (BEAKER) (test ucpp=774) 6.3 gm/dL 6.0-8.3 ALBUMIN (BEAKER) (test yvmd=8576) 3.0 g/dL 3.5-5.0 BILIRUBIN TOTAL (BEAKER) (test bdys=174) 0.6 mg/dL 0.2-1.2 BILIRUBIN DIRECT (BEAKER) (test cvrd=185) 0.3 mg/dL 0.1-0.5 ALKALINE PHOSPHATASE (BEAKER) (test qmua=669) 100 U/L 40-150 AST (SGOT) (BEAKER) (test qhfi=128) 31 U/L 5-34 ALT (SGPT) (BEAKER) (test kwfq=450) 27 U/L 6-55 PROTHROMBIN [id number] 02:28:00 Test Item Value Reference Range Comments PROTIME (BEAKER) (test xuol=804) 17.0 seconds 11.7-14.7 INR (BEAKER) (test qbpv=842) 1.4 <=5.9 RECOMMENDED COUMADIN/WARFARIN INR THERAPY RANGESSTANDARD DOSE: 2.0 - 3.0 Includes: PROPHYLAXIS forvenous thrombosis, systemic embolization; TREATMENT for venous thrombosis and/or pulmonary embolus.HIGH RISK: Target INR is 2.5-3.5 for patients with mechanical heart valves.[id number] 02:25:00 Test Item Value Reference Range Comments PARTIAL THROMBOPLASTIN TIME (BEAKER) (test 61.3 seconds 22.5-36.0 gjey=379) HEMOGLOBIN AND [id number] 02:22:00 Test Item Value Reference Range Comments HEMOGLOBIN (BEAKER) (test cjie=027) 9.3 GM/DL 13.0-16.8 HEMATOCRIT (BEAKER) (test vvun=820) 27.2 % 40.0-50.0 POCT-GLUCOSE [id number] 20:47:00 Test Item Value Reference Range Comments POC-GLUCOSE METER (BEAKER) 171 mg/dL 70-110 TESTED AT [address] (test nrpo=3719) [place] [address] [id number] 19:02:00 Test Item Value Reference Range Comments PARTIAL THROMBOPLASTIN TIME (BEAKER) (test 74.9 seconds 22.5-36.0 qqis=587) POCT-GLUCOSE [id number] 16:58:00 Test Item Value Reference Range Comments POC-GLUCOSE METER (BEAKER) 214 mg/dL 70-110 TESTED AT [address] (test porc=5621) [place] [address] POCT-GLUCOSE [id number] 12:21:00 Test Item Value Reference Range Comments POC-GLUCOSE METER (BEAKER) 193 mg/dL 70-110 TESTED AT [address] (test unnr=6753) [place] [address] [id number] 11:17:00 Test Item Value Reference Range Comments PARTIAL THROMBOPLASTIN TIME (BEAKER) (test 91.3 seconds 22.5-36.0 urfx=006) POCT-GLUCOSE [id number] 07:32:00 Test Item Value Reference Range Comments POC-GLUCOSE METER (BEAKER) 293 mg/dL 70-110 TESTED AT [address] (test tugv=3863) [place] [address] HEMOGLOBIN AND [id number] 04:16:00 Test Item Value Reference Range Comments HEMOGLOBIN (BEAKER) (test bcjn=130) 9.4 GM/DL 13.0-16.8 HEMATOCRIT (BEAKER) (test bqsa=975) 26.9 % 40.0-50.0 BASIC METABOLIC [id number] 03:51:00 Test Item Value Reference Range Comments SODIUM (BEAKER) (test 133 meq/L 136-145 irtc=492) POTASSIUM (BEAKER) (test 4.0 meq/L 3.5-5.1 jbnm=637) CHLORIDE (BEAKER) (test 98 meq/L 98-107 ywoe=109) CO2 (BEAKER) (test 26 meq/L 22-29 ixwk=786) BLOOD UREA NITROGEN 23 mg/dL 7-21 (BEAKER) (test jafj=890) CREATININE (BEAKER) (test 1.29 mg/dL 0.57-1.25 jpjf=563) GLUCOSE RANDOM (BEAKER) 226 mg/dL 70-105 (test ixvh=091) CALCIUM (BEAKER) (test 7.8 mg/dL 8.4-10.2 qwfp=028) EGFR (BEAKER) (test 58 mL/min/1.73 sq m ESTIMATED GFR IS NOT gnbv=9184) ACCURATE CREATININE CLEARANCE IN PREDICTING GLOMERULAR FILTRATION RATE. ESTIMATED GFR IS NOT APPLICABLE FOR DIALYSIS PATIENTS. [id number] 03:44:00 Test Item Value Reference Range Comments PARTIAL THROMBOPLASTIN TIME (BEAKER) (test 91.0 seconds 22.5-36.0 mbit=085) PROTHROMBIN [id number] 03:42:00 Test Item Value Reference Range Comments PROTIME (BEAKER) (test wxad=218) 15.2 seconds 11.7-14.7 INR (BEAKER) (test xvhf=560) 1.2 <=5.9 RECOMMENDED COUMADIN/WARFARIN INR THERAPY RANGESSTANDARD DOSE: 2.0 - 3.0 Includes: PROPHYLAXIS forvenous thrombosis, systemic embolization; TREATMENT for venous thrombosis and/or pulmonary embolus.HIGH RISK: Target INR is 2.5-3.5 for patients with mechanical heart valves.POCT-GLUCOSE [id number] 22:02:00 Test Item Value Reference Range Comments POC-GLUCOSE METER (BEAKER) 270 mg/dL 70-110 TESTED AT [facility] [address] [facility] (test akzi=0563) [facility] [address] [id number] 19:30:00 Test Item Value Reference Range Comments PARTIAL THROMBOPLASTIN TIME (BEAKER) (test 99.9 seconds 22.5-36.0 fgnd=819) POCT-GLUCOSE [id number] 16:39:00 Test Item Value Reference Range Comments POC-GLUCOSE METER (BEAKER) 297 mg/dL 70-110 TESTED AT [address] (test gszl=6342) [facility] [address] [id number] 13:19:00 Test Item Value Reference Range Comments PARTIAL THROMBOPLASTIN TIME (BEAKER) (test 70.5 seconds 22.5-36.0 awnp=267) POCT-GLUCOSE [id number] 12:29:00 Test Item Value Reference Range Comments POC-GLUCOSE METER (BEAKER) 236 mg/dL 70-110 TESTED AT [address] (test jqao=7547) [place] [id number] POCT-GLUCOSE [id number] 07:22:00 Test Item Value Reference Range Comments POC-GLUCOSE METER (BEAKER) 207 mg/dL 70-110 TESTED AT [address] (test zsde=8166) [place] [id number] CBC W/PLT COUNT & AUTO [id number] 06:41:00 Test Item Value Reference Range Comments WHITE BLOOD CELL COUNT (BEAKER) (test umgb=020) 7.7 K/ L 4.0-10.0 RED BLOOD CELL COUNT (BEAKER) (test lwdf=545) 3.00 M/ L 4.20-5.80 HEMOGLOBIN (BEAKER) (test axai=639) 9.2 GM/DL 13.0-16.8 HEMATOCRIT (BEAKER) (test skby=777) 26.7 % 40.0-50.0 MEAN CORPUSCULAR VOLUME (BEAKER) (test cusp=080) 89.1 fL 82.0-98.0 MEAN CORPUSCULAR HEMOGLOBIN (BEAKER) (test 30.8 pg 27.0-33.0 gmbe=066) MEAN CORPUSCULAR HEMOGLOBIN CONC (BEAKER) (test 34.6 GM/DL 32.0-36.0 wrpb=203) RED CELL DISTRIBUTION WIDTH (BEAKER) (test 17.6 % 10.3-14.2 ztpo=778) PLATELET COUNT (BEAKER) (test lsmc=021) 168 K/CU MM 150-430 MEAN PLATELET VOLUME (BEAKER) (test gmue=612) 8.4 fL 6.5-10.5 NUCLEATED RED BLOOD CELLS (BEAKER) (test 0 /100 WBC 0-0 aoay=483) NEUTROPHILS RELATIVE PERCENT (BEAKER) (test 79 % qucd=718) LYMPHOCYTES RELATIVE PERCENT (BEAKER) (test 11 % txst=592) MONOCYTES RELATIVE PERCENT (BEAKER) (test 8 % fyov=906) EOSINOPHILS RELATIVE PERCENT (BEAKER) (test 1 % srir=794) BASOPHILS RELATIVE PERCENT (BEAKER) (test 0 % qosu=729) NEUTROPHILS ABSOLUTE COUNT (BEAKER) (test 6.09 K/ L 1.80-8.00 ojsq=977) LYMPHOCYTES ABSOLUTE COUNT (BEAKER) (test 0.86 K/ L 1.48-4.50 zjkd=992) MONOCYTES ABSOLUTE COUNT (BEAKER) (test 0.60 K/ L 0.00-1.30 xgxh=696) EOSINOPHILS ABSOLUTE COUNT (BEAKER) (test 0.09 K/ L 0.00-0.50 brud=530) BASOPHILS ABSOLUTE COUNT (BEAKER) (test 0.03 K/ L 0.00-0.20 vrwp=633) 0.00BASIC METABOLIC [id number] 06:31:00 Test Item Value Reference Range Comments SODIUM (BEAKER) (test 133 meq/L 136-145 nswg=115) POTASSIUM (BEAKER) (test 4.1 meq/L 3.5-5.1 youc=630) CHLORIDE (BEAKER) (test 100 meq/L 98-107 rzvr=073) CO2 (BEAKER) (test 24 meq/L 22-29 lhmc=729) BLOOD UREA NITROGEN 26 mg/dL 7-21 (BEAKER) (test ayez=787) CREATININE (BEAKER) (test 1.26 mg/dL 0.57-1.25 mqsx=732) GLUCOSE RANDOM (BEAKER) 221 mg/dL 70-105 (test hvxm=996) CALCIUM (BEAKER) (test 8.1 mg/dL 8.4-10.2 nvoe=823) EGFR (BEAKER) (test 60 mL/min/1.73 sq m ESTIMATED GFR IS NOT oxxe=2439) ACCURATE CREATININE CLEARANCE IN PREDICTING GLOMERULAR FILTRATION RATE. ESTIMATED GFR IS NOT APPLICABLE FOR DIALYSIS PATIENTS. [id number] 06:20:00 Test Item Value Reference Range Comments PARTIAL THROMBOPLASTIN TIME (BEAKER) (test 33.9 seconds 22.5-36.0 khxp=924) PROTHROMBIN TIME/[id number] 06:19:00 Test Item Value Reference Range Comments PROTIME (BEAKER) (test arcw=038) 14.6 seconds 11.7-14.7 INR (BEAKER) (test hcgo=455) 1.2 <=5.9 RECOMMENDED COUMADIN/WARFARIN INR THERAPY RANGESSTANDARD DOSE: 2.0 - 3.0 Includes: PROPHYLAXIS forvenous thrombosis, systemic embolization; TREATMENT for venous thrombosis and/or pulmonary embolus.HIGH RISK: Target INR is 2.5-3.5 for patients with mechanical heart valves.POCT-GLUCOSE [id number] 22:35:00 Test Item Value Reference Range Comments POC-GLUCOSE METER (BEAKER) 239 mg/dL 70-110 TESTED AT [address] (test mhzv=0426) [place] [address] [id number] 20:55:00 Test Item Value Reference Range Comments PARTIAL THROMBOPLASTIN TIME (BEAKER) (test 28.7 seconds 22.5-36.0 rluy=705) POCT-GLUCOSE [id number] 17:07:00 Test Item Value Reference Range Comments POC-GLUCOSE METER (BEAKER) 346 mg/dL 70-110 TESTED AT [address] (test xqbj=6096) [place] [address] POCT-GLUCOSE [id number] 17:00:00 Test Item Value Reference Range Comments POC-GLUCOSE METER (BEAKER) 306 mg/dL 70-110 TESTED AT [address] (test bcsl=3116) [place] [address] POCT-GLUCOSE [id number] 12:11:00 Test Item Value Reference Range Comments POC-GLUCOSE METER (BEAKER) 268 mg/dL 70-110 TESTED AT [address] (test ehxj=1259) [place] [address] POCT-GLUCOSE [id number] 08:17:00 Test Item Value Reference Range Comments POC-GLUCOSE METER (BEAKER) 276 mg/dL 70-110 TESTED AT [address] (test nifi=9050) [place] [address] CBC W/PLT COUNT & AUTO [id number] 06:10:00 Test Item Value Reference Range Comments WHITE BLOOD CELL COUNT (BEAKER) (test jdwc=465) 6.9 K/ L 4.0-10.0 RED BLOOD CELL COUNT (BEAKER) (test rawh=538) 3.03 M/ L 4.20-5.80 HEMOGLOBIN (BEAKER) (test ndeu=083) 9.3 GM/DL 13.0-16.8 HEMATOCRIT (BEAKER) (test ospf=966) 26.8 % 40.0-50.0 MEAN CORPUSCULAR VOLUME (BEAKER) (test bfnc=428) 88.7 fL 82.0-98.0 MEAN CORPUSCULAR HEMOGLOBIN (BEAKER) (test 30.8 pg 27.0-33.0 hvcq=233) MEAN CORPUSCULAR HEMOGLOBIN CONC (BEAKER) (test 34.7 GM/DL 32.0-36.0 gdbz=467) RED CELL DISTRIBUTION WIDTH (BEAKER) (test 16.5 % 10.3-14.2 kabu=354) PLATELET COUNT (BEAKER) (test elwt=374) 197 K/CU MM 150-430 MEAN PLATELET VOLUME (BEAKER) (test ahim=952) 8.5 fL 6.5-10.5 NUCLEATED RED BLOOD CELLS (BEAKER) (test 0 /100 WBC 0-0 qloy=139) NEUTROPHILS RELATIVE PERCENT (BEAKER) (test 66 % xkpa=804) LYMPHOCYTES RELATIVE PERCENT (BEAKER) (test 24 % wevm=465) MONOCYTES RELATIVE PERCENT (BEAKER) (test 7 % btat=719) EOSINOPHILS RELATIVE PERCENT (BEAKER) (test 2 % xpmu=429) BASOPHILS RELATIVE PERCENT (BEAKER) (test 1 % imls=819) NEUTROPHILS ABSOLUTE COUNT (BEAKER) (test 4.52 K/ L 1.80-8.00 hmvi=264) LYMPHOCYTES ABSOLUTE COUNT (BEAKER) (test 1.64 K/ L 1.48-4.50 rtbr=121) MONOCYTES ABSOLUTE COUNT (BEAKER) (test 0.50 K/ L 0.00-1.30 awho=557) EOSINOPHILS ABSOLUTE COUNT (BEAKER) (test 0.15 K/ L 0.00-0.50 cqmb=099) BASOPHILS ABSOLUTE COUNT (BEAKER) (test 0.05 K/ L 0.00-0.20 oxur=484) [id number] 06:03:00 Test Item Value Reference Range Comments MAGNESIUM (BEAKER) (test hrdv=350) 1.7 mg/dL 1.6-2.6 BASIC METABOLIC [id number] 06:03:00 Test Item Value Reference Range Comments SODIUM (BEAKER) (test 135 meq/L 136-145 niye=073) POTASSIUM (BEAKER) (test 4.1 meq/L 3.5-5.1 gxmf=246) CHLORIDE (BEAKER) (test 104 meq/L 98-107 stoj=353) CO2 (BEAKER) (test 22 meq/L 22-29 rdsa=793) BLOOD UREA NITROGEN 30 mg/dL 7-21 (BEAKER) (test qqgl=049) CREATININE (BEAKER) (test 1.17 mg/dL 0.57-1.25 egmt=469) GLUCOSE RANDOM (BEAKER) 266 mg/dL 70-105 (test ewqr=041) CALCIUM (BEAKER) (test 8.4 mg/dL 8.4-10.2 wgoe=856) EGFR (BEAKER) (test 65 mL/min/1.73 sq m ESTIMATED GFR IS NOT yluq=1352) ACCURATE CREATININE CLEARANCE IN PREDICTING GLOMERULAR FILTRATION RATE. ESTIMATED GFR IS NOT APPLICABLE FOR DIALYSIS PATIENTS. LACTATE DEHYDROGENASE (LDH)2017-01-16 06:03:00 Test Item Value Reference Range Comments LACTATE DEHYDROGENASE (BEAKER) (test ebat=401) 233 U/L 125-220 PROTHROMBIN [id number] 05:44:00 Test Item Value Reference Range Comments PROTIME (BEAKER) (test siey=820) 16.0 seconds 11.7-14.7 INR (BEAKER) (test blxb=322) 1.3 <=5.9 RECOMMENDED COUMADIN/WARFARIN INR THERAPY RANGESSTANDARD DOSE: 2.0 - 3.0 Includes: PROPHYLAXIS forvenous thrombosis, systemic embolization; TREATMENT for venous thrombosis and/or pulmonary embolus.HIGH RISK: Target INR is 2.5-3.5 for patients with mechanical heart valves.POCT-GLUCOSE [id number] 21:29:00 Test Item Value Reference Range Comments POC-GLUCOSE METER (BEAKER) 192 mg/dL 70-110 TESTED AT [facility] [address] [facility] (test ujtc=9296) [facility] [address] POCT-GLUCOSE [id number] 17:50:00 Test Item Value Reference Range Comments POC-GLUCOSE METER (BEAKER) 267 mg/dL 70-110 TESTED AT [address] (test skhg=0129) [facility] [address] POCT-GLUCOSE [id number] 12:22:00 Test Item Value Reference Range Comments POC-GLUCOSE METER (BEAKER) 240 mg/dL 70-110 TESTED AT [address] (test iqht=7745) [facility] [address] POCT-GLUCOSE [id number] 08:02:00 Test Item Value Reference Range Comments POC-GLUCOSE METER (BEAKER) 200 mg/dL 70-110 TESTED AT [address] (test wcig=6081) [facility] [address] [id number] 06:06:00 Test Item Value Reference Range Comments MAGNESIUM (BEAKER) (test mvgc=114) 2.1 mg/dL 1.6-2.6 BASIC METABOLIC [id number] 06:06:00 Test Item Value Reference Range Comments SODIUM (BEAKER) (test 138 meq/L 136-145 twjw=959) POTASSIUM (BEAKER) (test 5.1 meq/L 3.5-5.1 vmai=170) CHLORIDE (BEAKER) (test 104 meq/L 98-107 rzqj=716) CO2 (BEAKER) (test 27 meq/L 22-29 vpkl=924) BLOOD UREA NITROGEN 37 mg/dL 7-21 (BEAKER) (test nhun=788) CREATININE (BEAKER) (test 1.14 mg/dL 0.57-1.25 kdeo=589) GLUCOSE RANDOM (BEAKER) 168 mg/dL 70-105 (test mfiy=675) CALCIUM (BEAKER) (test 8.6 mg/dL 8.4-10.2 avgg=776) EGFR (BEAKER) (test 67 mL/min/1.73 sq m ESTIMATED GFR IS NOT xlef=0424) ACCURATE CREATININE CLEARANCE IN PREDICTING GLOMERULAR FILTRATION RATE. ESTIMATED GFR IS NOT APPLICABLE FOR DIALYSIS PATIENTS. LACTATE DEHYDROGENASE (LDH)2017-01-15 06:06:00 Test Item Value Reference Range Comments LACTATE DEHYDROGENASE (BEAKER) (test elti=050) 205 U/L 125-220 CBC W/PLT COUNT & AUTO [id number] 05:45:00 Test Item Value Reference Range Comments WHITE BLOOD CELL COUNT (BEAKER) (test dlzj=733) 8.3 K/ L 4.0-10.0 RED BLOOD CELL COUNT (BEAKER) (test uuij=556) 3.15 M/ L 4.20-5.80 HEMOGLOBIN (BEAKER) (test elrv=609) 9.6 GM/DL 13.0-16.8 HEMATOCRIT (BEAKER) (test uzwj=771) 27.5 % 40.0-50.0 MEAN CORPUSCULAR VOLUME (BEAKER) (test eknl=310) 87.2 fL 82.0-98.0 MEAN CORPUSCULAR HEMOGLOBIN (BEAKER) (test 30.6 pg 27.0-33.0 tidm=792) MEAN CORPUSCULAR HEMOGLOBIN CONC (BEAKER) (test 35.1 GM/DL 32.0-36.0 fqlv=516) RED CELL DISTRIBUTION WIDTH (BEAKER) (test 17.0 % 10.3-14.2 drpr=618) PLATELET COUNT (BEAKER) (test bxtr=998) 180 K/CU MM 150-430 MEAN PLATELET VOLUME (BEAKER) (test qexz=018) 8.3 fL 6.5-10.5 NUCLEATED RED BLOOD CELLS (BEAKER) (test 0 /100 WBC 0-0 sobu=936) NEUTROPHILS RELATIVE PERCENT (BEAKER) (test 56 % hvlr=900) LYMPHOCYTES RELATIVE PERCENT (BEAKER) (test 34 % mujl=830) MONOCYTES RELATIVE PERCENT (BEAKER) (test 7 % gciq=728) EOSINOPHILS RELATIVE PERCENT (BEAKER) (test 2 % pyff=617) BASOPHILS RELATIVE PERCENT (BEAKER) (test 1 % lsrs=158) NEUTROPHILS ABSOLUTE COUNT (BEAKER) (test 4.66 K/ L 1.80-8.00 ohkv=096) LYMPHOCYTES ABSOLUTE COUNT (BEAKER) (test 2.82 K/ L 1.48-4.50 tzje=101) MONOCYTES ABSOLUTE COUNT (BEAKER) (test 0.61 K/ L 0.00-1.30 wdwi=982) EOSINOPHILS ABSOLUTE COUNT (BEAKER) (test 0.19 K/ L 0.00-0.50 hocr=648) BASOPHILS ABSOLUTE COUNT (BEAKER) (test 0.04 K/ L 0.00-0.20 ewqq=939) 0.00PROTHROMBIN [id number] 05:40:00 Test Item Value Reference Range Comments PROTIME (BEAKER) (test eagi=013) 20.4 seconds 11.7-14.7 INR (BEAKER) (test wgfm=155) 1.8 <=5.9 RECOMMENDED COUMADIN/WARFARIN INR THERAPY RANGESSTANDARD DOSE: 2.0 - 3.0 Includes: PROPHYLAXIS forvenous thrombosis, systemic embolization; TREATMENT for venous thrombosis and/or pulmonary embolus.HIGH RISK: Target INR is 2.5-3.5 for patients with mechanical heart valves.POCT-GLUCOSE [id number] 21:35:00 Test Item Value Reference Range Comments POC-GLUCOSE METER (BEAKER) 203 mg/dL 70-110 TESTED AT [address] (test ecor=2872) [facility] [address] CBC (HEMOGRAM ONLY)2017-01-14 17:58:00 Test Item Value Reference Range Comments WHITE BLOOD CELL COUNT (BEAKER) (test ogee=528) 6.6 K/ L 4.0-10.0 RED BLOOD CELL COUNT (BEAKER) (test hpqs=323) 3.30 M/ L 4.20-5.80 HEMOGLOBIN (BEAKER) (test naqv=319) 10.2 GM/DL 13.0-16.8 HEMATOCRIT (BEAKER) (test qlem=818) 28.3 % 40.0-50.0 MEAN CORPUSCULAR VOLUME (BEAKER) (test pcqe=644) 85.9 fL 82.0-98.0 MEAN CORPUSCULAR HEMOGLOBIN (BEAKER) (test 31.0 pg 27.0-33.0 jrpl=607) MEAN CORPUSCULAR HEMOGLOBIN CONC (BEAKER) (test 36.1 GM/DL 32.0-36.0 zdvi=184) RED CELL DISTRIBUTION WIDTH (BEAKER) (test 16.9 % 10.3-14.2 xjhl=294) PLATELET COUNT (BEAKER) (test qhse=397) 176 K/CU MM 150-430 MEAN PLATELET VOLUME (BEAKER) (test tchr=811) 8.6 fL 6.5-10.5 NUCLEATED RED BLOOD CELLS (BEAKER) (test 0 /100 WBC 0-0 juke=077) 0.00POCT-GLUCOSE [id number] 17:34:00 Test Item Value Reference Range Comments POC-GLUCOSE METER (BEAKER) 310 mg/dL 70-110 TESTED AT [address] (test ilzo=3188) [place] [id number] CBC (HEMOGRAM ONLY)2017-01-14 14:39:00 Test Item Value Reference Range Comments WHITE BLOOD CELL COUNT (BEAKER) (test xezz=250) 5.9 K/ L 4.0-10.0 RED BLOOD CELL COUNT (BEAKER) (test tldg=366) 3.39 M/ L 4.20-5.80 HEMOGLOBIN (BEAKER) (test wkkh=745) 10.7 GM/DL 13.0-16.8 HEMATOCRIT (BEAKER) (test qgwl=766) 29.4 % 40.0-50.0 MEAN CORPUSCULAR VOLUME (BEAKER) (test dhmo=912) 86.8 fL 82.0-98.0 MEAN CORPUSCULAR HEMOGLOBIN (BEAKER) (test 31.6 pg 27.0-33.0 rfwk=093) MEAN CORPUSCULAR HEMOGLOBIN CONC (BEAKER) (test 36.4 GM/DL 32.0-36.0 bbwz=469) RED CELL DISTRIBUTION WIDTH (BEAKER) (test 15.3 % 10.3-14.2 uxus=613) PLATELET COUNT (BEAKER) (test nhlw=350) 190 K/CU MM 150-430 MEAN PLATELET VOLUME (BEAKER) (test nlcv=974) 8.3 fL 6.5-10.5 NUCLEATED RED BLOOD CELLS (BEAKER) (test 0 /100 WBC 0-0 neog=220) POCT-GLUCOSE [id number] 13:02:00 Test Item Value Reference Range Comments POC-GLUCOSE METER (BEAKER) 239 mg/dL 70-110 TESTED AT [address] (test enqo=2042) [place] [id number] POCT-GLUCOSE [id number] 09:30:00 Test Item Value Reference Range Comments POC-GLUCOSE METER (BEAKER) 303 mg/dL 70-110 TESTED AT [address] (test yhog=7389) [place] [id number] POCT-GLUCOSE [id number] 05:39:00 Test Item Value Reference Range Comments POC-GLUCOSE METER (BEAKER) 281 mg/dL 70-110 TESTED AT [address] (test cqub=5670) [place] [id number] 04:27:00 Test Item Value Reference Range Comments FERRITIN (BEAKER) (test guiq=720) 40 ng/mL 5-275 Effective 10/06/2014: Reference Range ChangeNew: Male 5-275 Previous: Male 22-322 Female 5-275 Female 10-291LACTATE DEHYDROGENASE (LDH) 2017-01-14 04:17:00 Test Item Value Reference Range Comments LACTATE DEHYDROGENASE (BEAKER) 253 U/L 125-220 Specimen slightly hemolyzed (test ktkw=961) [id number] 04:14:00 Test Item Value Reference Range Comments MAGNESIUM (BEAKER) (test 1.8 mg/dL 1.6-2.6 Specimen slightly hemolyzed afbx=010) BASIC METABOLIC [id number] 04:14:00 Test Item Value Reference Range Comments SODIUM (BEAKER) (test 133 meq/L 136-145 sopq=259) POTASSIUM (BEAKER) (test 4.5 meq/L 3.5-5.1 Specimen slightly mqen=503) hemolyzed CHLORIDE (BEAKER) (test 102 meq/L 98-107 xbxs=026) CO2 (BEAKER) (test 23 meq/L 22-29 wdbi=350) BLOOD UREA NITROGEN 37 mg/dL 7-21 (BEAKER) (test otuv=806) CREATININE (BEAKER) (test 1.21 mg/dL 0.57-1.25 Specimen slightly axds=430) hemolyzed GLUCOSE RANDOM (BEAKER) 342 mg/dL 70-105 (test webe=329) CALCIUM (BEAKER) (test 8.4 mg/dL 8.4-10.2 hsur=875) EGFR (BEAKER) (test 62 mL/min/1.73 sq m ESTIMATED GFR IS NOT lbkd=5344) ACCURATE CREATININE CLEARANCE IN PREDICTING GLOMERULAR FILTRATION RATE. ESTIMATED GFR IS NOT APPLICABLE FOR DIALYSIS PATIENTS. PROTHROMBIN [id number] 04:07:00 Test Item Value Reference Range Comments PROTIME (BEAKER) (test jelp=886) 23.0 seconds 11.7-14.7 INR (BEAKER) (test jrpx=077) 2.0 <=5.9 RECOMMENDED COUMADIN/WARFARIN INR THERAPY RANGESSTANDARD DOSE: 2.0 - 3.0 Includes: PROPHYLAXIS forvenous thrombosis, systemic embolization; TREATMENT for venous thrombosis and/or pulmonary embolus.HIGH RISK: Target INR is 2.5-3.5 for patients with mechanical heart valves.IRON, TIBC, % SAT. (WITHOUT FERRITIN) 2017-01-14 04:06:00 Test Item Value Reference Range Comments IRON (BEAKER) (test njup=904) 79 ug/dL 40-160 TOTAL IRON BINDING CAPACITY (BEAKER) (test 303 ug/dL 250-450 rkby=309) IRON % SATURATION (2) (BEAKER) (test ninb=5571) 26 % 20-55 CBC (HEMOGRAM ONLY)2017-01-14 03:51:00 Test Item Value Reference Range Comments WHITE BLOOD CELL COUNT (BEAKER) (test fcip=560) 7.0 K/ L 4.0-10.0 RED BLOOD CELL COUNT (BEAKER) (test bqvr=051) 3.41 M/ L 4.20-5.80 HEMOGLOBIN (BEAKER) (test aiaw=807) 10.2 GM/DL 13.0-16.8 HEMATOCRIT (BEAKER) (test oxer=797) 29.4 % 40.0-50.0 MEAN CORPUSCULAR VOLUME (BEAKER) (test xcul=119) 86.3 fL 82.0-98.0 MEAN CORPUSCULAR HEMOGLOBIN (BEAKER) (test 30.0 pg 27.0-33.0 xgfx=923) MEAN CORPUSCULAR HEMOGLOBIN CONC (BEAKER) (test 34.8 GM/DL 32.0-36.0 otpm=394) RED CELL DISTRIBUTION WIDTH (BEAKER) (test 17.1 % 10.3-14.2 jxdh=229) PLATELET COUNT (BEAKER) (test zuxf=644) 184 K/CU MM 150-430 MEAN PLATELET VOLUME (BEAKER) (test rsvq=744) 8.5 fL 6.5-10.5 NUCLEATED RED BLOOD CELLS (BEAKER) (test 0 /100 WBC 0-0 valt=437) 0.00POCT-GLUCOSE [id number] 21:57:00 Test Item Value Reference Range Comments POC-GLUCOSE METER (BEAKER) 222 mg/dL 70-110 TESTED AT [facility] [address] [facility] (test nevx=0285) [facility] [address] CBC (HEMOGRAM ONLY)2017-01-13 18:08:00 Test Item Value Reference Range Comments WHITE BLOOD CELL COUNT (BEAKER) (test eaje=745) 8.4 K/ L 4.0-10.0 RED BLOOD CELL COUNT (BEAKER) (test kyvv=923) 3.67 M/ L 4.20-5.80 HEMOGLOBIN (BEAKER) (test nwit=754) 11.1 GM/DL 13.0-16.8 HEMATOCRIT (BEAKER) (test rgbp=796) 31.7 % 40.0-50.0 MEAN CORPUSCULAR VOLUME (BEAKER) (test vvzh=362) 86.4 fL 82.0-98.0 MEAN CORPUSCULAR HEMOGLOBIN (BEAKER) (test 30.4 pg 27.0-33.0 ppwk=493) MEAN CORPUSCULAR HEMOGLOBIN CONC (BEAKER) (test 35.2 GM/DL 32.0-36.0 dfez=718) RED CELL DISTRIBUTION WIDTH (BEAKER) (test 17.0 % 10.3-14.2 guqg=470) PLATELET COUNT (BEAKER) (test ldsj=320) 203 K/CU MM 150-430 MEAN PLATELET VOLUME (BEAKER) (test ofmc=516) 8.4 fL 6.5-10.5 NUCLEATED RED BLOOD CELLS (BEAKER) (test 0 /100 WBC 0-0 qbka=303) 0.00POCT-GLUCOSE [id number] 17:32:00 Test Item Value Reference Range Comments POC-GLUCOSE METER (BEAKER) 347 mg/dL 70-110 Notified KENZIE BARCLAY/TESTED AT [facility] (test mtcj=9644) [address] [facility] [address] B-TYPE NATRIURETIC FACTOR (BNP)2017-01-13 15:39:00 Test Item Value Reference Range Comments B-TYPE NATRIURETIC PEPTIDE (BEAKER) (test ticw=130) 53 pg/mL 0-100 LACTATE DEHYDROGENASE (LDH)2017-01-13 15:37:00 Test Item Value Reference Range Comments LACTATE DEHYDROGENASE (BEAKER) (test afow=243) 290 U/L 125-220 [id number] 13:55:00 Test Item Value Reference Range Comments LIPASE (BEAKER) (test sown=275) 26 U/L 8-78 BASIC METABOLIC [id number] 13:55:00 Test Item Value Reference Range Comments SODIUM (BEAKER) (test 134 meq/L 136-145 yxvg=388) POTASSIUM (BEAKER) (test 4.5 meq/L 3.5-5.1 yjzc=921) CHLORIDE (BEAKER) (test 101 meq/L 98-107 mdmw=161) CO2 (BEAKER) (test 25 meq/L 22-29 kcjp=873) BLOOD UREA NITROGEN 37 mg/dL 7-21 (BEAKER) (test xkjb=209) CREATININE (BEAKER) (test 1.28 mg/dL 0.57-1.25 heub=492) GLUCOSE RANDOM (BEAKER) 320 mg/dL 70-105 (test ovcj=826) CALCIUM (BEAKER) (test 9.0 mg/dL 8.4-10.2 vydn=593) EGFR (BEAKER) (test 59 mL/min/1.73 sq m ESTIMATED GFR IS NOT kqpq=0839) ACCURATE CREATININE CLEARANCE IN PREDICTING GLOMERULAR FILTRATION RATE. ESTIMATED GFR IS NOT APPLICABLE FOR DIALYSIS PATIENTS. HEPATIC FUNCTION [id number] 13:55:00 Test Item Value Reference Range Comments TOTAL PROTEIN (BEAKER) (test ovxj=437) 6.4 gm/dL 6.0-8.3 ALBUMIN (BEAKER) (test mjyv=5263) 3.4 g/dL 3.5-5.0 BILIRUBIN TOTAL (BEAKER) (test axjn=170) 0.5 mg/dL 0.2-1.2 BILIRUBIN DIRECT (BEAKER) (test ejko=482) 0.2 mg/dL 0.1-0.5 ALKALINE PHOSPHATASE (BEAKER) (test rdcz=382) 117 U/L 40-150 AST (SGOT) (BEAKER) (test ieer=964) 31 U/L 5-34 ALT (SGPT) (BEAKER) (test pnsm=472) 41 U/L 6-55 CBC W/PLT COUNT & AUTO [id number] 13:43:00 Test Item Value Reference Range Comments WHITE BLOOD CELL COUNT (BEAKER) (test gmdk=752) 9.4 K/ L 4.0-10.0 RED BLOOD CELL COUNT (BEAKER) (test klyx=232) 4.01 M/ L 4.20-5.80 HEMOGLOBIN (BEAKER) (test rtpb=129) 11.9 GM/DL 13.0-16.8 HEMATOCRIT (BEAKER) (test imwu=502) 34.4 % 40.0-50.0 MEAN CORPUSCULAR VOLUME (BEAKER) (test ndbb=420) 85.8 fL 82.0-98.0 MEAN CORPUSCULAR HEMOGLOBIN (BEAKER) (test 29.6 pg 27.0-33.0 okxf=576) MEAN CORPUSCULAR HEMOGLOBIN CONC (BEAKER) (test 34.5 GM/DL 32.0-36.0 xupd=238) RED CELL DISTRIBUTION WIDTH (BEAKER) (test 16.9 % 10.3-14.2 cffk=402) PLATELET COUNT (BEAKER) (test iyms=082) 215 K/CU MM 150-430 MEAN PLATELET VOLUME (BEAKER) (test vzjf=890) 8.2 fL 6.5-10.5 NUCLEATED RED BLOOD CELLS (BEAKER) (test 0 /100 WBC 0-0 ajyx=271) NEUTROPHILS RELATIVE PERCENT (BEAKER) (test 66 % hdaw=696) LYMPHOCYTES RELATIVE PERCENT (BEAKER) (test 23 % lbrj=202) MONOCYTES RELATIVE PERCENT (BEAKER) (test 8 % mlzg=995) EOSINOPHILS RELATIVE PERCENT (BEAKER) (test 2 % vgcn=977) BASOPHILS RELATIVE PERCENT (BEAKER) (test 1 % jivd=056) NEUTROPHILS ABSOLUTE COUNT (BEAKER) (test 6.20 K/ L 1.80-8.00 laho=970) LYMPHOCYTES ABSOLUTE COUNT (BEAKER) (test 2.15 K/ L 1.48-4.50 myfx=516) MONOCYTES ABSOLUTE COUNT (BEAKER) (test 0.74 K/ L 0.00-1.30 hcbc=923) EOSINOPHILS ABSOLUTE COUNT (BEAKER) (test 0.21 K/ L 0.00-0.50 spco=945) BASOPHILS ABSOLUTE COUNT (BEAKER) (test 0.06 K/ L 0.00-0.20 otjg=029) [id number] 13:40:00 Test Item Value Reference Range Comments PROTIME (BEAKER) (test xrsh=954) 21.9 seconds 11.7-14.7 INR (BEAKER) (test chhn=510) 1.9 <=5.9 PARTIAL THROMBOPLASTIN TIME (BEAKER) (test 31.4 seconds 22.5-36.0 oitu=025) RECOMMENDED COUMADIN/WARFARIN INR THERAPY RANGESSTANDARD DOSE: 2.0 - 3.0 Includes: PROPHYLAXIS forvenous thrombosis, systemic embolization; TREATMENT for venous thrombosis and/or pulmonary embolus.HIGH RISK: Target INR is 2.5-3.5 for patients with mechanical heart valves.
--- NOTE | 2019-11-13 11:45 | EDPHYS ---
Physician Documentation [facility] Name: Jose Lizama Age: 59 yrs Sex: Male : 1960 Arrival Date: 11/13/2019 Time: 10:22 Bed 18 Private MD: ED Physician Gaurav Padron HPI: 11/13 11:37 This 59 yrs old Male presents to ER via Ambulatory with complaints of beeping rn from device. 11:37 Reports defibrillator shocked him a few months ago, since then has noted beeping from rn defibrillator every morning around 0743 AM, then nothing rest of day. Otherwise feels normal. No chest pain/sob. Also states threw away a piece of medical equipment.. The patient has not experienced similar symptoms in the past. The patient has not recently seen a physician. Historical: - Allergies: 10:34 No Known Allergies; iw - PMHx: 10:34 CHF; Diabetes - NIDDM; Hypertension; iw - PSHx: 10:34 LVAD; pacemaker insertion; neck surgery; iw - Social history:: Smoking status: . - Ebola Screening: : Patient negative for fever greater than or equal to 101.5 degrees Fahrenheit, and additional compatible Ebola Virus Disease symptoms Patient denies exposure to infectious person Patient denies travel to an Ebola-affected area in the 21 days before illness onset No symptoms or risks identified at this time. - Family history:: not pertinent. - Hospitalizations: : No recent hospitalization is reported. ROS: 11:37 Constitutional: Negative for fever, chills, and weight loss, Eyes: Negative for injury, rn pain, redness, and discharge, Neck: Negative for injury, pain, and swelling, Cardiovascular: Negative for chest pain, palpitations, and edema, Respiratory: Negative for shortness of breath, cough, wheezing, and pleuritic chest pain, Abdomen/GI: Negative for abdominal pain, nausea, vomiting, diarrhea, and constipation, MS/Extremity: Negative for injury and deformity, Skin: Negative for injury, rash, and discoloration, Neuro: Negative for headache, weakness, numbness, tingling, and seizure. Exam: 11:37 Constitutional: This is a well developed, well nourished patient who is awake, alert, rn and in no acute distress. Head/Face: Normocephalic, atraumatic. ENT: MMM Cardiovascular: Constant hum of LVAD Respiratory: No increased work of breathing, no retractions or nasal flaring. Abdomen/GI: soft, non-tender MS/ Extremity: Pulses equal, no cyanosis. Neurovascular intact. Full, normal range of motion. Equal circumference. Neuro: Awake and alert, GCS 15, oriented to person, place, time, and situation. Cranial nerves II-XII grossly intact. Motor strength 5/5 in all extremities. Sensory grossly intact. Cerebellar exam normal. Normal gait. Vital Signs: 10:35 BP 148 / 112; Pulse 82; Resp 16; Temp 98.0; Pulse Ox 98% on R/A; Weight 113.4 kg; iw Height 6 ft. (182.88 cm); 11:41 BP 135 / 92; Pulse 58; Resp 18; Pulse Ox 100% on R/A; em 10:35 Body Mass Index 33.91 (113.40 kg, 182.88 cm) iw MDM: 10:47 Patient medically screened. rn 11:37 Differential Diagnosis device malfunction, battery alert, communication alert. Data rn reviewed: vital signs, nurses notes, and as a result, I will discharge patient. Counseling: I had a detailed discussion with the patient and/or guardian regarding: the historical points, exam findings, and any diagnostic results supporting the discharge/admit diagnosis, the need for outpatient follow up, to return to the emergency department if symptoms worsen or persist or if there are any questions or concerns that arise at home. ED course: Transmitted information from device to [employer], and spoke to person, they report that this is alert regarding communication failure, likely secondary to piece of equipment patient got rid of, and just trying to transmit info from shock administered. Number given to patient from [employer] to obtain missing equipment. . Administered Medications: No medications were administered Disposition: 11/13/19 11:43 Discharged to Home. Impression: Presence of automatic (implantable) cardiac defibrillator, Encounter for adjustment and management of automatic implantable cardiac defibrillator. - Condition is Stable. - Discharge Instructions: Cardioverter Defibrillator Implantation, Care After. - Medication Reconciliation Form, Thank You Letter, Antibiotic Education, Prescription Opioid Use form. - Follow up: Private Physician; When: As needed; Reason: Recheck today's complaints, Re-evaluation by your physician. - Problem is new. - Symptoms have improved. Signatures: Christian Thakkar MATERIAL FLOW ENGINEER MATERIAL FLOW ENGINEER Polly Yates, KENZIE RN iw Gaurav Padron MD MD rn case mgr: (The following items were deleted from the chart) 11:49 11:43 11/13/2019 11:43 Discharged to Home. Impression: Presence of automatic em (implantable) cardiac defibrillator; Encounter for adjustment and management of automatic implantable cardiac defibrillator. Condition is Stable. Forms are Medication Reconciliation Form, Thank You Letter, Antibiotic Education, Prescription Opioid Use. Follow up: Private Physician; When: As needed; Reason: Recheck today's complaints, Re-evaluation by your physician. Problem is new. Symptoms have improved. rn
--- NOTE | 2019-11-13 11:45 | ER ---
Nurse's Notes [facility] Name: Jose Lizama Age: 59 yrs Sex: Male : 1960 Arrival Date: 11/13/2019 Time: 10:22 Bed 18 Private MD: Diagnosis: Presence of automatic (implantable) cardiac defibrillator;Encounter for adjustment and management of automatic implantable cardiac defibrillator Presentation: 11/13 10:31 Presenting complaint: Patient states: keeps hearing beeping in his defibrillator, iw occurs at 0746 every morning but he just noticed it yesterday, defib was placed by Shen Brennan, in 2014, also has LVAD in place. Transition of care: patient was not received from another setting of care. Onset of symptoms was November 13, 2019. Risk Assessment: Do you want to hurt yourself or someone else? Patient reports no desire to harm self or others. Initial Sepsis Screen: Does the patient meet any 2 criteria? No. Patient's initial sepsis screen is negative. Does the patient have a suspected source of infection? No. Patient's initial sepsis screen is negative. Care prior to arrival: None. 10:31 Method Of Arrival: Ambulatory iw 10:31 Acuity: ANIL 3 iw Historical: - Allergies: 10:34 No Known Allergies; iw - PMHx: 10:34 CHF; Diabetes - NIDDM; Hypertension; iw - PSHx: 10:34 LVAD; pacemaker insertion; neck surgery; iw - Social history:: Smoking status: . - Ebola Screening: : Patient negative for fever greater than or equal to 101.5 degrees Fahrenheit, and additional compatible Ebola Virus Disease symptoms Patient denies exposure to infectious person Patient denies travel to an Ebola-affected area in the 21 days before illness onset No symptoms or risks identified at this time. - Family history:: not pertinent. - Hospitalizations: : No recent hospitalization is reported. Screenin:45 Abuse screen: Denies threats or abuse. Nutritional screening: No deficits noted. em Tuberculosis screening: No symptoms or risk factors identified. Fall Risk None identified. Assessment: 10:45 General: Appears in no apparent distress. comfortable, Behavior is calm, cooperative, em Reports hears beeping that last about 15 seconds every morning for about 2-3 weeks at the same time. Pain: Denies pain. Neuro: Level of Consciousness is awake, alert, obeys commands, Oriented to person, place, time, situation, Appropriate for age. Cardiovascular: Capillary refill < 3 seconds Patient's skin is warm and dry. Respiratory: Airway is patent Respiratory effort is even, unlabored, Respiratory pattern is regular, symmetrical. Derm: Skin is intact, is healthy with good turgor, Skin is pink, warm \T\ dry. Musculoskeletal: Capillary refill < 3 seconds, Range of motion: intact in all extremities. 11:00 Reassessment: pending [employer] report. em 11:22 Reassessment: spoke with Ravinder from [employer] and reports that beeping is daily after em his shock from , beeping would continue until device transmits information from his home device to the clinic so the provider can see why device is trying to transmit, pt reports throwing away his home device several years ago. Vital Signs: 10:35 BP 148 / 112; Pulse 82; Resp 16; Temp 98.0; Pulse Ox 98% on R/A; Weight 113.4 kg; iw Height 6 ft. (182.88 cm); 11:41 BP 135 / 92; Pulse 58; Resp 18; Pulse Ox 100% on R/A; em 10:35 Body Mass Index 33.91 (113.40 kg, 182.88 cm) iw ED Course: 10:22 Patient arrived in ED. rg4 10:34 Triage completed. iw 10:38 Christian Thakkar LVN is Primary Nurse. em 10:45 Patient has correct armband on for positive identification. Bed in low position. Call em light in reach. Adult w/ patient. Pulse ox on. NIBP on. 10:45 Arm band placed on. em 10:47 Gaurav Padron MD is Attending Physician. rn 11:41 No provider procedures requiring assistance completed. Patient did not have IV access em during this emergency room visit. Administered Medications: No medications were administered Outcome: 11:43 Discharge ordered by . rn 11:48 Discharged to home ambulatory, with family. em 11:48 Condition: good 11:48 Discharge instructions given to patient, family, Instructed on discharge instructions, follow up and referral plans. Demonstrated understanding of instructions, follow-up care. 11:49 Patient left the ED. em Signatures: Christian Thakkar LVN LVN em Polly Mendez RN Gaurav Reynoso MD MD rn Garcia, Rubi rg4 Corrections: (The following items were deleted from the chart) : 11:00 Reassessment: pending [employer] em em
[2019-11-13 11:54] VITALS: TEMP 98
[2019-11-13 11:56] VITALS: BP 135/92; O2SAT 100
== END 2019-11-13 11:49 | disposition home or self-care (01) ==
LOC: ER 10:19
DX: Z45.018 Encounter for adjustment and management of other part of cardiac pacemaker (principal); I10 Essential (primary) hypertension
CPT/HCPCS: 99283

== ENCOUNTER 2021-04-06 16:07 | Emergency (ER) | payer OTHER ==
--- OUTSIDE RECORDS SUMMARY | 2021-04-06 16:19 | XMS REPORT | Continuity of Care Document ---
:1960 Author Organization [facility] t Address [address] [place] [address] Care Team Providers Name Role Phone Renan BARCLAY Primary Care Physician Ana ESPINO Attending Clinician Unavailable Donaldo ESPINO I Attending Clinician Unavailable Dar Attending Clinician Unavailable Juan Antonio ESPINO, L Attending Clinician Unavailable Bettie Wood MD Attending Clinician Bettie WOOD Attending Clinician Unavailable Rita Fuentes Attending Clinician Unavailable Cesario Attending Clinician Unavailable Roddy ESPINO, Jim Attending Clinician Unavailable Lisa Attending Clinician Unavailable Gamal ESPINO Attending Clinician Unavailable Jim García Attending Clinician Unavailable Lucas ESPINO Attending Clinician Unavailable Catherine Peterson Attending Clinician Unavailable Bettie ELY Attending Clinician Unavailable LUCERO BROWN Attending Clinician Unavailable GROVER Attending Clinician Unavailable HECTOR BULL Attending Clinician Unavailable NINA Attending Clinician Unavailable BERONICA CARMONA Attending Clinician Unavailable KRISTI SPARKS Attending Clinician Unavailable Bettie WOOD Admitting Clinician Unavailable Bettie ELY Admitting Clinician Unavailable JOSE Admitting Clinician Unavailable ABDON ASHLEY Admitting Clinician Unavailable Payers Payer Name Policy Type Policy Effective Date Expiration Date Sour ce Number TEXANPLUSTEXANPLUS O [id number] [address] [id number] 00:00:00 L bernie - Mirza Contracted [facility] Problems Condition Condition Condition Status Onset Resolution Last Treating Co mments Source Name Details Category Date Date Treatment Clinician Date 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 rosis of 1-15 [facility] coronary coronary 00:00: Medica l artery artery 00 Center bypass bypass graft of graft of [place] heart with heart with unstable unstable angina angina pectoris pectoris Other Other Disease Active [facility] cirrhosis cirrhosis 06-09 [facility] - of liver of liver 00:00: Medica l 00 Center Screening Screening Disease Active [facility] for for 06-09 [facility] - malignant malignant 00:00: [facility] [place] neoplasm neoplasm 00 Center Hepatitis Hepatitis Disease Active [facility] C virus C virus 02-24 [facility] - infection infection 00:00: [facility] [place] cured cured 00 Center after after antiviral antiviral drug drug therapy therapy History of History of Disease Active [facility] alcohol alcohol 02-24 [facility] - abuse abuse 00:00: Medical 00 [place] Immunity Immunity Disease Active [facility] status status 02-24 [facility] - testing testing 00:00: Medical 00 [place] Class 2 Class [address] [facility] severe severe 02-24 [facility] - obesity obesity 00:00: Medical due to due to 00 Center excess excess calories calories with with serious serious comorbidit comorbidit y and body y and body mass index mass index (BMI) of (BMI) of 35.0 to 35.0 to 35.9 in 35.9 in adult adult Dizziness Dizziness Disease Active 2017-[address] [facility] 0-24 [facility] - 00:00: Medical 00 Center Vertigo Vertigo Disease Active 2017-[address] [facility] 0-24 [facility] - 00:00: Medical 00 Center Cardiomyop Cardiomyop Disease Active [facility] athy athy 1-03 [facility] - 00:00: Medical 00 Center GI bleed GI bleed Disease Active [facility] 1-02 [facility] - 00:[facility]: Medical 00 Center Acute Acute Disease Active [facility] blood loss blood loss 1-02 [facility] - anemia anemia 00:00: Medical 00 Center Upper GI Upper GI Disease Active [facility] bleed bleed 1- [facility] - 00:00: Medical 00 [place] Anemia Anemia Disease Active [facility] requiring requiring 1- [facility] - transfusio transfusio 00:00: Me dical ns ns 00 Center Syncope Syncope Disease Active 2015-[address] [facility] 2-19 [facility] - 00:00: Medical 00 Center Musculoske Musculoske Disease Active 2015-[address] letal letal 1-11 [facility] - chest pain chest pain 00:00: Me dical 00 Center Substernal Substernal Disease Active 2015-[address] chest pain chest pain 1-10 [facility] - 00:00: Medical 00 Center HM II, HM II, Disease Active 2015-[address] 03/27/2016, 03/27/2016, 1-10 [facility] - DT due to DT due to 00:00: [facility] [place] smoking smoking 00 Center Neuropathy Neuropathy Disease Active 2015-[address] 0-10 [facility] - 00:00: Medical 00 Center IDDM IDDM Disease Active 2015-[address] [facility] (insulin (insulin 0-10 [facility] - dependent dependent 00:00: [facility] [place] diabetes diabetes 00 Center mellitus) mellitus) Gastrointe Gastrointe Disease Active [facility] stinal stinal 9-02 [facility] - hemorrhage hemorrhage 00:00: Me dical with with 00 [place] melena melena Chronic Chronic Disease Active Overview: [facility] anticoagul anticoagul 5- Recent [facility] - ation ation 00:00: history Medical 00 of AVM, Center off ASACurren tly on Coumadin at 6 mg dailyRepe at INR weekly Anemia, Anemia, Disease Active [facility] blood loss blood loss 5-31 [facility] - 00:00: Medical 00 Center Chronic Chronic Disease Active [facility] post-opera post-opera 5-31 [facility] - tive pain tive pain 00:00: [facility] [place] 00 Center Depression Depression Disease Active [facility] 5-31 [facility] - 00:00: Medical 00 [place] Hypothyroi Hypothyroi Disease Active Overview : [facility] dism dism 5- UPDATED [facility] - 00:00: BY ICD10 Medical 00 SNOMED/IM Center O UPDATES Right Right Disease Active [facility] heart heart 5-10 [facility] - failure failure 00:00: Medical 00 Center Left Left Disease Active Overview: [facility] ventricula ventricula - Last echo [facility] - r assist r assist 00:00: on Medica l device, device, 00 Cente r Heartmate Heartmate 8: II, II, showing implanted implanted increased 03/27/16 03/27/16 LVIDd of 5.1 from 4.25, AV opensRepe at speed change echo on 8 - pendingCu rrent speed of 9000 rpmsLDH stable DL site clean and dryNo VAD alarms reported Chronic Chronic Disease Active Overview: [facility] St renal renal 7-31 Cr ranges [facility] - disease, disease, 00:00: 1 - Medica l stage III stage III 00 1.4Diuret C enter ics Chronic Chronic Disease Active Overview: [facility] systolic systolic NYHA III, Derick es - 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 Patent stent. 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 AICD AICD Disease Active [facility] (automatic (automatic [facility] - cardiovert cardiovert Me dical er/defibri er/defibri Ce nter llator) llator) present, present, MDT MDT Allergies, Adverse Reactions, Alerts Allergy Allergy Status Severity Reaction(s) Onset Inactive Treating Comm ents Source Name Type Date Date Clinician Morphine Drug Active Nausea Only [facility] Allergy 11-20 [facility] - 00:00: Medical 00 Center Family History Family Member Diagnosis Comments Start Date Stop Date Source Natural brother defects [facility] Social History Social Habit Start Date Stop Date Quantity Comments Source Sex Assigned At [facility] Cigarettes smoked 2021-02-28 2021-02-[address] [facility] [address] [facility] - current (pack per 00:00:00 00:00:00 [facility] Center day) - Reported Tobacco use and 2021-02-28 2021-02-28 Never used [facility] St Telles kes - exposure 00:00:00 00:00:00 [facility] Alcohol intake 2021-02-28 2021-02-28 Current [facility] - 00:00:00 00:00:00 non-drinker of Medical Ce nter alcohol (finding) Tobacco Comment 2017-02-02 2017-02-02 e cigg with thc [facility] paxton - 00:00:00 00:00:00 12/28/[address] date. History of tobacco 2015-12-28 Current smoker [facility] - use 00:00:00 [facility] Alcohol Comment 2015-12-10 2015-12-10 social use KATHIE Mathur - 00:00:00 00:00:00 [facility] Smoking Status Start Date Stop Date Source Former smoker 2021-02-28 00:00:00 2021-02-28 00:00:00 [facility] Medications Ordered Filled Start Stop Current Ordering Indication Dosage Frequency Signature Comments Components Source Medication Medication Date Date Medication? Clinician (SIG) Name Name amlodipine- Yes Essential 1{tbl} QD Take [address] valsartan 5-19 hypertensio tablet by [email or web address] - (EXFORGE) 00:00: n mouth Medical 5-320 mg 00 daily. Center per tablet levothyroxi Yes 50ug Take [address] [facility] ne 4-12 mcg by [email or web address] - (SYNTHROID, 11:35: mouth Medic al LEVOTHROID) 35 Every Center 50 MCG morning on tablet an empty stomach. insulin Yes Inject [facility] aspart 4-12 subcutaneo [email or web address] - (NOVOLOG) 11:35: usly 3 Medica l 100 unit/mL 35 (three) Cente r InPn times daily before meals And per sliding scale . zolpidem Yes 10mg Take [address] (AMBIEN) 10 4-12 by mouth Luke s - mg tablet 11:35: every Medical 35 night as Center needed for Insomnia. pantoprazol Yes 40mg QD Take [address] [facility] e 4-12 by mouth [facility] - (PROTONIX) 11:35: daily. Medic al 40 MG 35 Center tablet sertraline Yes 100mg QD Take [address] (ZOLOFT) 50 4-12 mg by [facility] - MG tablet 11:35: mouth Medical 35 daily . Center ivabradine Yes 5mg Q.5D Take [address] (CORLANOR) 4-12 by mouth 2 Derick es - 5 mg Tab 11:35: (two) Medical tablet 35 times Center daily. docusate Yes 100mg Take [address] sodium 4-12 mg by [facility]ukes - (COLACE) 11:35: mouth Medical 100 MG 35 every Center capsule other day . pregabalin Yes 150mg [id number] Take [address] (LYRICA) 4-12 [id number] mg by Luke s - 150 MG 11:35: 3D mouth 3 Medical capsule 35 (three) Center times daily. digoxin Yes 125ug QD Take 125 [facility] (LANOXIN) 4-12 mcg by [facility] - 0.125 MG 11:35: mouth Medical tablet 35 daily. Center insulin Yes 30U Q.5D Inject 30 [facility] degludec 4-12 Units [facility] - (TRESIBA 11:35: subcutaneo Med ical U-100 35 usly 2 Center INSULIN (two) SUBQ) times daily. eplerenone Yes 25mg QD Take [address] (INSPRA) 25 4-12 by mouth [facility] - MG tablet 11:35: daily. Medica l 35 Center folic acid Yes 1mg QD Take [address] (FOLVITE) 1 4-12 by mouth [facility] - MG tablet 11:35: daily. Medica l 35 Center tamsulosin Yes .4mg QD Take 0.[address] (FLOMAX) 4-12 mg by [facility] - 0.4 mg Cap 11:35: mouth Medica l 24 hr 35 daily. Center capsule amlodipine- 2020- No Essential 1{tbl} QD Take [address] valsartan 3-25 05-19 hypertensio tablet by [facility] - (EXFORGE) 00:00: 00:00 n mouth Medica l 5-320 mg 00 :00 daily. Center per tablet hydrALAZINE Yes 1{tbl} QD Take [address] (APRESOLINE 3-22 tablet by Derick es - ) 50 MG 00:00: mouth Medical tablet 00 daily. Center losartan Yes 100mg QD [facility] (COZAAR) 01-18 [facility] - tablet 100 15:00: Medical mg 00 Center bumetanide Yes 1mg [facility] (BUMEX) 01-17 [facility] - tablet 1 mg 11:00: Medica l 00 Center warfarin Yes Take by [facility] (COUMADIN, 01-17 mouth as [facility] - JANVEN) 1 08:19: directed 5 Medical MG tablet 16 mg every Center MWF, 4.5 mg every Sun, Tues, Thurs,Sat . bumetanide 2021- No 1mg Take [address] (BUMEX) 1 2- 02- tablet (1 [facility] - MG tablet 00:00: 23:59 mg total) Me dical 00 :00 by mouth Center as needed. amlodipine- 2020- No 1{tbl} QD Take [address] valsartan 2- 03-25 tablet by [facility] - (EXFORGE) 00:00: 00:00 mouth Medica l 5-320 mg 00 :00 daily. Center per tablet hydrALAZINE 2020- No 50mg Q.[id number] Take [address] (APRESOLINE 2- 02- [id number] tablet (50 [facility] - ) 50 MG 00:00: 00:00 3D mg total) Medi diego tablet 00 :00 by mouth 3 Center (three) times daily. warfarin 2020- No 4.5mg Take 4.[address] (COUMADIN) 1-15 01-15 mg by [facility] - 5 MG tablet 10:06: 00:00 mouth as M edical 32 :00 directed Center 4.5 mg daily . carvediloL Yes Essential 50mg Q.5D Take [address] [facility] (Coreg) 25 1-15 hypertensio tablets [facility] - MG tablet 00:00: n (50 mg Medica l 00 total) by Center mouth 2 (two) times daily. warfarin Yes 5mg Take [address] [facility] [facility] (COUMADIN, 1-15 tablet (5 [facility] - JANTOVEN) 5 00:00: mg total) M edical MG tablet 00 by mouth Center as directed Patient to alternate 5 mg and 4.5 mg every day, as previously prescribed .. clopidogreL 2021- No 75mg QD Take [address] (PLAVIX) 75 1-15 01-15 tablet (75 L ukes - mg tablet 00:00: 23:59 mg total) Me dical 00 :00 by mouth Center daily. bumetanide 2020- No 1mg QD Take [address] [facility] (BUMEX) 1 1-15 02-01 tablet (1 [facility] - MG tablet 00:00: 00:00 mg total) Me dical 00 :00 by mouth Center daily. pneumococca Yes .5mL [facility] l vaccine 9-06 [facility] - (PNEUMOVAX 07:00: Medical 23) 00 Center injection 0.5 mL TDaP Yes .5mL [facility] Booster 9-06 [facility] - (ADACEL) 07:00: Medical injection 00 Center 0.5 mL carvedilol 2020- No Essential 37.5mg Q.5D Take 1.[address] (COREG) 25 6-28 01-15 hypertensio tablets [facility] - MG tablet 00:00: 00:00 n (37.5 mg Med ical 00 :00 total) by Center mouth 2 (two) times daily. magnesium Yes 800mg Q.5D Take 2 [facility] oxide 6-14 tablets [facility] - (MAG-OX) 00:00: (800 mg Medica l 400 mg 00 total) by Center (241.3 mg mouth 2 magnesium) (two) tablet times daily. pneumococca Yes .5mL [facility] l 13-valent 3-01 [facility] - conjugate 13:00: Medical (PREVNAR 00 Center 13) vaccine injection atorvastati 2019-0 Yes LVAD (left 40mg QD Take [address] n (LIPITOR) 3-01 ventricular tablet (40 [facility] - 40 MG 00:00: assist mg total) Medic al tablet 00 device) by mouth Center present daily. ([facility]) warfarin 2018-0 Yes 7mg Take 7 mg [place] sodium 8-28 by mouth. Methodi (WARFARIN 12:10: st ORAL) 50 pregabalin 2018-0 Yes 150mg Q.5D Take 150 [place] (LYRICA) 8-28 mg by Methodi 150 MG 12:10: mouth 2 st capsule 50 (two) times a day. eplerenone 2018-0 Yes 25mg QD Take 25 mg [place] (INSPRA) 25 8-28 by mouth Meth gena MG tablet 12:09: daily. st 19 folic acid 2018-0 Yes 1mg QD Take 1 mg [place] (FOLVITE) 1 8-28 by mouth Meth gena MG tablet 12:09: daily. st 19 levothyroxi 2018-0 Yes 50ug QD Take 50 [place] ne 8-28 mcg by Methodi (SYNTHROID, 12:09: mouth st LEVOXYL) 50 19 every mcg tablet morning. losartan 2018-0 Yes 100mg QD Take 100 [place] (COZAAR) 8-28 mg by Methodi 100 MG 12:09: mouth st tablet 19 daily. magnesium 2018-0 Yes 400mg QD Take 400 [place] oxide 8-28 mg by Methodi (MAG-OX) 12:09: mouth st 400 mg 19 daily. tablet insulin 2018-0 Yes 10U Q.[id number] Inject 10 [place] ASPART 8-28 [id number] Units Method i (NovoLOG) 12:09: 3D under the st 100 unit/mL 19 skin 3 injection (three) times a day before meals. insulin 2018-0 Yes 30U QD Inject 30 [place] GLARGINE 8-28 Units Methodi (LANTUS 12:09: under the st SOLOSTAR) 19 skin 100 unit/mL nightly. injection (pen) pantoprazol 2018-0 Yes 40mg QD Take 40 mg [place] 8-28 by mouth Methodi (PROTONIX) 12:09: daily. st 40 MG EC 19 tablet sertraline 2018-0 Yes 50mg QD Take 50 mg [place] (ZOLOFT) 50 8-28 by mouth Meth gena MG tablet 12:09: daily. st 19 tamsulosin 2017- Yes .4mg QD Take 0.4 [place] (FLOMAX) 8-28 mg by Methodi 0.4 mg 12:09: mouth st capsule 19 daily. warfarin 2018- Yes 6mg QD Take 6 mg [place] (COUMADIN) 8-28 by mouth Metho di 6 MG tablet 12:09: daily. st 19 zolpidem 2017- Yes 10mg QD Take 10 mg [place] (AMBIEN) 10 8-28 by mouth Meth gena mg tablet 12:09: nightly as st 19 needed for sleep. amLODIPine Yes 5mg QD Take 5 mg [place] (NORVASC) 5 8-28 by mouth Meth gena mg tablet 12:09: daily. st 19 atorvastati Yes 20mg QD Take 20 mg [place] (LIPITOR) 8-28 by mouth Meth gena 20 MG 12:09: daily. st tablet 19 Default OP ins BUMETanide Yes 1mg QD Take 1 mg [place] (BUMEX) 1 8-28 by mouth Method i MG tablet 12:09: daily. st 19 CARVEDILOL Yes 37.5mg Take 37.5 [place] ORAL 8-28 mg by Methodi 12:09: mouth. st 19 ivabradine 2017-0 Yes 5mg Q.5D Take 5 mg [place] (CORLANOR) 8-28 by mouth 2 Met hodi 5 mg tablet 12:09: (two) st tablet 19 times a day. digOXIN 2017- Yes 125ug QD Take 125 [place] (LANOXIN) 8-28 mcg by Methodi 125 mcg 12:09: mouth st tablet 19 daily. DOCUSATE 2017- Yes Take by [place] CALCIUM 8-28 mouth. Methodi ORAL 12:09: st 19 warfarin 2020- No Neuropathy [address] [facility] (COUMADIN) 413 12-03 by mouth. Derick es - 1 MG tablet 00:00: 00:00 Medic al 00 :00 Center losartan 2020- No 100mg QD Take 1 [facility] (COZAAR) 9-15 12-20 tablet [facility] - 100 MG 00:00: 00:00 (100 mg Medical tablet 00 :00 total) by Center mouth daily. Atorvastati Atorvastati Yes [place] 1 tablet [facility] n Calcium n Calcium [facility] Immunizations Ordered Immunization Filled Immunization Date Status Commen ts Source Name Name Pneumococcal 2019-05-02 Completed [facility] Conjugate (Prevnar) 00:00:00 [facility] 13-Valent Influenza Three-TIV 2017-08-31 Completed [facility] t [facility] - PF 5+ YR 00:00:00 Medical Center Vital Signs Vital Name Observation Time Observation Value Comments Source Heart rate 2021-02-28 11:25:00 73 /min [facility] Body temperature 2021-02-28 11:25:00 36.39 Sari [facility] Respiratory rate 2021-02-28 11:25:00 18 /min [facility] Body height 2021-02-28 11:25:00 181.6 cm [facility] Body weight 2021-02-28 11:25:00 109.453 kg [facility] BMI 2021-02-28 11:25:00 33.19 kg/m2 [facility] Oxygen saturation in 2021-02-28 11:25:00 96 /min [facility] Arterial blood by Medical Ce nter Pulse oximetry Systolic blood 2021-01-17 09:30:00 102 mm[Hg] [facility] Diastolic blood 2021-01-17 09:30:00 66 mm[Hg] [facility] Procedures Procedure Date / Time Performed Performing Clinician Sour e PROTHROMBIN TIME/INR 2021-03-31 00:00:00 Provider, Historical [facility] PROTHROMBIN TIME/INR 2021-03-21 00:00:00 Provider, Historical [facility] BASIC METABOLIC PANEL (7) 2021-03-19 00:00:00 Provider, Historic [facility] LACTATE DEHYDROGENASE 2021-03-19 00:00:00 Provider, Historical [facility] ([facility] MAGNESIUM 2021-03-19 00:00:00 Provider, Historical [facility] CBC W/PLT COUNT & AUTO 2021-03-19 00:00:00 Provider, Historical [facility] PROTHROMBIN TIME/INR 2021-02-28 11:42:00 Mariah Wood [facility] LACTATE DEHYDROGENASE 2021-02-28 11:42:00 Mariah Wood [facility] ([facility]) [facility] BASIC METABOLIC PANEL (7) 2021-02-28 11:42:00 Mariah Wood [facility] CBC W/PLT COUNT & AUTO 2021-02-28 11:42:00 Mariah Wood [facility] HEPATIC FUNCTION PANEL 2021-02-28 11:42:00 Mariah Wood [facility] MAGNESIUM 2021-02-28 11:42:00 Mariah Wood [facility] ARRYTHMIA IMPLANT REPORT 2021-02-28 00:00:00 Provider, Default [facility] - SCAN Scanning [facility] HEPATIC FUNCTION PANEL 2021-02-23 00:00:00 Provider, Historical [facility] LACTATE DEHYDROGENASE 2021-02-23 00:00:00 Provider, Historical [facility] ([facility]) [facility] MAGNESIUM 2021-02-23 00:00:00 Provider, Historical [facility] CBC W/PLT COUNT & AUTO 2021-02-23 00:00:00 Provider, Historical [facility] BASIC METABOLIC PANEL (7) 2021-02-23 00:00:00 Provider, Historic al [facility] PROTHROMBIN TIME/INR 2021-02-23 00:00:00 Provider, Historical [facility] PROTHROMBIN TIME/INR 2021-02-14 00:00:00 Provider, Historical [facility] HEPATIC FUNCTION PANEL 2021-02-07 00:00:00 Provider, Historical [facility] LACTATE DEHYDROGENASE 2021-02-07 00:00:00 Provider, Historical [facility] ([facility]) [facility] MAGNESIUM 2021-02-07 00:00:00 Provider, Historical [facility] CBC W/PLT COUNT & AUTO 2021-02-07 00:00:00 Provider, Historical [facility] PROTHROMBIN TIME/INR 2021-02-07 00:00:00 Provider, Historical [facility] PROTHROMBIN TIME/INR 2021-02-01 00:00:00 Provider, Historical [facility] PROTHROMBIN TIME/INR 2021-01-25 00:00:00 Provider, Historical [facility] HEPATIC FUNCTION PANEL 2021-01-25 00:00:00 Provider, Historical [facility] LACTATE DEHYDROGENASE 2021-01-25 00:00:00 Provider, Historical [facility] ([facility]) [facility] MAGNESIUM 2021-01-25 00:00:00 Provider, Historical [facility] CBC W/PLT COUNT & AUTO 2021-01-25 00:00:00 Provider, Historical [facility] PROTHROMBIN TIME/INR 2021-01-17 08:25:00 Mariah Wood [facility] LACTATE DEHYDROGENASE 2021-01-17 08:25:00 Mariah Wood [facility] ([facility]) [facility] BASIC METABOLIC PANEL (7) 2021-01-17 08:25:00 Mariah Wood [facility] CBC W/PLT COUNT & AUTO 2021-01-17 08:25:00 Mariah Wood [facility] HEPATIC FUNCTION PANEL 2021-01-17 08:25:00 Mariah Wood [facility] MAGNESIUM 2021-01-17 08:25:00 Mariah Wood [facility] PROTHROMBIN TIME/INR 2021-01-11 00:00:00 Provider, Historical [facility] CBC W/PLT COUNT & AUTO 2021-01-11 00:00:00 Provider, [facility] BASIC METABOLIC PANEL (7) 2021-01-11 00:00:00 [facility]/INR 2020-12-20 09:50:00 Mariah Wood [facility] LACTATE DEHYDROGENASE 2020-12-20 09:50:00 Mariah Wood [facility] ([facility] BASIC METABOLIC PANEL (7) 2020-12-20 09:50:00 Mariah Wood [facility] CBC W/PLT COUNT & AUTO 2020-12-20 09:50:00 Mariah Wood [facility] HEPATIC FUNCTION PANEL 2020-12-20 09:50:00 Mariah Wood [facility] MAGNESIUM 2020-12-20 09:50:00 Mariah Wood [facility] CBC W/PLT COUNT & AUTO 2020-12-13 09:23:00 Provider, Historical [facility] COMPREHENSIVE METABOLIC 2020-12-13 09:23:00 Provider, Historical [facility] PROTHROMBIN TIME/INR 2020-12-13 00:00:00 Provider, Historical [facility] POCT-GLUCOSE METER 2020-12-03 11:33:00 Mariah Wood [facility] POCT-GLUCOSE METER 2020-12-03 08:44:00 Mariah Wood [facility] BASIC METABOLIC PANEL (7) 2020-12-03 01:22:00 Mariah Wood [facility] CBC (HEMOGRAM ONLY) 2020-12-03 01:22:00 Mariah Wood [facility] PROTHROMBIN TIME/INR 2020-12-03 00:16:00 Mariah Wood [facility] POCT-GLUCOSE METER 2020-12-02 21:36:00 Mariah Wood [facility] POCT-ACT 2020-12-02 17:53:00 Mariah Wood [facility] POCT-ACT 2020-12-02 16:57:00 Mariah Wood [facility] POCT-ACT 2020-12-02 16:45:00 Mariah Wood [facility] R & L CATH / CORONARY 2020-12-02 15:17:00 Mariah Wood [facility] ANGIOS / PCI [facility] ECG 12-LEAD 2020-12-02 10:24:59 Alfred Britton [facility] BASIC METABOLIC PANEL (7) 2020-12-02 09:52:00 Alfred Britton ael [facility] CBC (HEMOGRAM ONLY) 2020-12-02 09:52:00 Alfred Britton [facility] VASCULAR DIAGRAM -SCAN 2020-12-02 00:00:00 Provider, [facility] CARDIAC CATH REPORT - 2020-12-02 00:00:00 Provider, Default [facility] 2D ECHO W/ DOPPLER 2020-11-22 12:00:00 Mariah Wood [facility] (CW/PW/COLOR) [facility] PROTHROMBIN TIME/INR 2020-11-22 08:14:00 Mariah Wood [facility] LACTATE DEHYDROGENASE 2020-11-22 08:14:00 Mariah Wood [facility] ([facility]) [facility] BASIC METABOLIC PANEL (7) 2020-11-22 08:14:00 Mariah Wood [facility] CBC W/PLT COUNT & AUTO 2020-11-22 08:14:00 Mariah Wood [facility] HEPATIC FUNCTION PANEL 2020-11-22 08:14:00 Mariah Wood [facility] MAGNESIUM 2020-11-22 08:14:00 Mariah Wood [facility] PROTHROMBIN TIME/INR 2020-11-15 00:00:00 Provider, Historical [facility] BASIC METABOLIC PANEL (7) 2020-11-15 00:00:00 Provider, Historic al [facility] CBC W/PLT COUNT & AUTO 2020-11-15 00:00:00 Provider, Historical [facility] LACTATE DEHYDROGENASE 2020-11-15 00:00:00 Provider, Historical [facility] MAGNESIUM 2020-11-15 00:00:00 Provider, Historical [facility] PROTHROMBIN TIME/INR 2020-10-28 00:00:00 Provider, Historical [facility] PROTHROMBIN TIME/INR 2020-10-07 00:00:00 Provider, Historical [facility] PROTHROMBIN TIME/INR 2020-09-20 00:00:00 Provider, Historical [facility] PROTHROMBIN TIME/INR 2020-09-08 00:00:00 Provider, Historical [facility] PROTHROMBIN TIME/INR 2020-08-16 10:53:00 Mariah Wood [facility] LACTATE DEHYDROGENASE 2020-08-16 10:53:00 Mariah Wood [facility] ([facility] BASIC METABOLIC PANEL (7) 2020-08-16 10:53:00 Mariah Wood [facility] CBC W/PLT COUNT & AUTO 2020-08-16 10:53:00 Mariah Wood [facility] HEPATIC FUNCTION PANEL 2020-08-16 10:53:00 Mariah Wood [facility] MAGNESIUM 2020-08-16 10:53:00 Mariah Wood [facility] PROTHROMBIN TIME/INR 2020-07-21 00:00:00 Provider, [facility] PROTHROMBIN TIME/INR 2020-06-30 00:00:00 Provider, Historical [facility] PROTHROMBIN TIME/INR 2020-05-27 07:09:00 Provider, Historical [facility] PROTHROMBIN TIME/INR 2020-05-27 00:00:00 Provider, Historical [facility] MICROALBUMIN, RANDOM 2020-05-14 00:00:00 Provider, Historical [facility] URINE (W/CREATININE) [facility] ter LIPID PANEL 2020-05-14 00:00:00 Provider, Historical [facility] COMPREHENSIVE METABOLIC 2020-05-14 00:00:00 Provider, Historical [facility] CBC W/PLT COUNT & AUTO 2020-05-14 00:00:00 Provider, Historical [facility] HEMOGLOBIN A1C 2020-05-14 00:00:00 Provider, Historical [facility] TSH 2020-05-14 00:00:00 Provider, Historical [facility] FERRITIN 2020-05-14 00:00:00 Provider, Historical [facility] IRON, TIBC, % SAT. 2020-05-14 00:00:00 Provider, Historical [facility] (WITHOUT FERRITIN) [facility] 2020-05-06 00:00:00 Provider, Historical [facility] PROTHROMBIN TIME/INR 2020-04-22 00:00:00 Provider, Historical [facility] PROTHROMBIN TIME/INR 2020-04-08 00:00:00 Provider, Historical [facility] Plan of Care Planned Activity Planned Date Details Comments Source Future Scheduled 2023-05-[address] [facility] (procedure) [code = [facility] 25575438] Future Scheduled 2021-07-[address] [facility] - Test 00:00:00 (Season Ended) [code = [facility] INFLUENZA VACCINE (Season Ended)] Future Scheduled 2021-06-19 INFLU[facility]ZA VACCINE [facility] 00:00:00 [code = INFLUENZA VACCINE] Future Scheduled 2021-05-14 Urine screening for [facility] Test 00:00:00 protein (procedure) [facility] [code = 697003465] Future Scheduled 2020-11-[address] [facility] 00:00:00 [facility] (procedure) [code = 85006513] Future Scheduled 2019-06-[address] [facility] - Test 00:00:00 0-64 YRS (1 of 1 - Medical C enter PPSV23) [code = PNEUMOCOCCAL VACCINE 0-64 YRS (1 of 1 - PPSV23)] Future Scheduled 2019-01-[address] [facility] Test 00:00:00 WELLNESS (YEAR 2 or Medical Center FIRST YEAR if no IPPE) [code = MEDICARE ANNUAL WELLNESS (YEAR 2 or FIRST YEAR if no IPPE)] Future Scheduled 2012-02-25 COLONOSCOPY SCREENING [facility] 00:00:00 [code = COLONOSCOPY SCREENING] Future Scheduled 2012-02-25 SHINGLES VACCINES (#1) [place] [facility] [facility] 00:00:00 [code = SHINGLES VACCINES (#1)] Future Scheduled 2012-02-25 SHINGLES VACCINES ([address] [facility] - Test 00:00:00 of 2) [code = SHINGLES Medic al Center VACCINES (1 of 2)] Future Scheduled 1981 DTAP/TDAP/TD VACCINES [facility] 00:[facility]:00 (1 - Tdap) [code = Medical C enter DTAP/TDAP/TD VACCINES (1 - Tdap)] Future Scheduled 1974 COVID-19 VACCINE (1) [place] [facility] 00:00:00 [code = COVID-19 VACCINE (1)] Future Scheduled 1972-02-25 DIABETES: RETINAL EYE [facility] 00:00:00 EXAM [code = DIABETES: RETINAL EYE EXAM] Future Scheduled 1972-02-25 DIABETIC FOOT EXAM [place] [facility] 00:00:00 [code = DIABETIC FOOT EXAM] Future Scheduled 1972-02-25 URINE MICROALBUMIN [facility] 00:00:00 [code = URINE MICROALBUMIN] Future Scheduled 1972-02-[address] EXAM [facility] Test 00:00:00 [code = DIABETIC EYE Medical Center EXAM] Future Scheduled 1972-02-[address] [facility] Test 00:00:00 examination Medical Center (regime/therapy) [code = 375389000] Future Scheduled [address] [facility] Test 00:00:00 malignant [facility] of [facility] colon (procedure) [code = 371247046] Encounters Start End Encounter Admission Attending Care Care Encounter Source Date/Time Date/Time Type Type Clinicians Facility Department ID 2021-03-10 2021-03-10 Outpatient [facility] [id number] [facility] 2021-03-07 2021-03-07 Outpatient [facility] [id number] [facility] 2021-03-07 2021-03-07 Outpatient [facility] [id number] [facility] 2021-01-12 2021-01-12 [facility] [id number] [facility] 2020-12-01 2020-12-01 [facility] [id number] [facility] 2020-11-29 2020-11-29 [facility] [id number] [facility] 2020-11-29 2020-11-29 Out[facility] [id number] [facility] 2020-09-29 2020-09-29 [facility] [id number] [facility] 2020-08-27 2020-08-27 Out[facility] [id number] [facility] 2020-08-24 2020-08-24 Out[facility] [id number] [facility] 2020-08-18 2020-08-18 Outpatient [facility] [id number] [facility] 2020-07-07 2020-07-07 [facility] [id number] 10:01:00 10:01:00 [place] [employer] [facility] - [facility] l Medicine Outpati ent Clinics 2020-05-18 2020-05-18 [facility] [id number] 09:20:00 09:20:00 [place] [employer] [facility] Drive [facility] l Medicine Outpati ent Clinics 2020-05-13 2020-05-13 [facility] [id number] 08:47:00 08:47:00 [place] [employer] - [facility] Medicine l Medicine Outpati ent Clinics 2020-05-11 2020-05-11 [facility] [id number] 10:08:00 10:08:00 t [employer] [facility] Medicine l Medicine Outpati ent Clinics 2020-04-14 2020-04-14 [facility] [id number] 15:40:00 15:40:00 [facility] Medicine l Medicine Outpati ent Clinics 2020-04-09 2020-04-09 [facility] [id number] 17:40:00 17:40:00 [facility] l Medicine Outpati ent Clinics 2020-03-31 2020-03-31 [facility] [id number] 15:01:00 15:01:00 [facility] Medicine l Medicine Outpati ent Clinics 2020-03-18 2020-03-18 [facility] [id number] 14:41:00 14:41:00 [facility] Medicine Medicine Outpati ent Clinics 2020-03-15 2020-03-15 Outpatient [facility] [id number] [facility] 22:25:00 22:25:00 [facility] l Outpati ent Clinics 2020-03-10 2020-03-10 [facility] [id number] 08:30:00 08:30:00 [facility] Medicine Outpati ent Clinics 2020-03-10 2020-03-10 [facility] [id number] 08:25:00 08:25:00 [facility] Medicine l Medicine Outpati ent Clinics 2020-02-05 2020-02-05 [facility] [id number] 11:20:00 11:20:00 [facility] Medicine Medicine Outpati ent Clinics Results Test Description Test Time Test Comments Results Result Comments Source Prothrombin time/INR 2021-04-04 10:58:00 Test Item Value Reference Range Interpretation Comme nts PROTIME (MANUAL) (test code = 5478696) 20.0 seconds INR (MANUAL) (test code = 9577758) 1.73 [facility] - [id number] 10:01:10 [facility] by an unspecified provider[facility]:00:00 Test Item Value Reference Range Interpretation Comments INR (MANUAL) (test code = 4574443) 1.7 [facility] [id number] 14:34:00 Test Item Value Reference Range Interpretation Comments SODIUM (MANUAL) (test code = 139 meq/L 20150316) POTASSIUM (MANUAL) (test code = 4.7 meq/L 7332304) CHLORIDE (MANUAL) (test code = 106 meq/L ) CO2 (MANUAL) (test code = 0522893) BUN (MANUAL) (test code = 2463975) 46 mg/dL CREATININE (MANUAL) (test code = 1.79 mg/dL ) GLUCOSE (MANUAL) (test code = 392 mg/dL ) CALCIUM (MANUAL) (test code = 2208285) EGFR (MANUAL) (test code = 8154882) [facility] ([facility]H)2021-03-21 14:34:00 Test Item Value Reference Range Interpretation Comments LD (test code = 2532-0) 216 u/L 80-250 [facility]2021-[facility] 14:34:00 Test Item Value Reference Range Interpretation Comments MAGNESIUM (MANUAL) (test code = 2.4 mg/dL 20150218) [facility] + automated [id number] 14:34:00 Test Item Value Reference Range Interpretation Comments WBC (MANUAL) (test 5.30 10^3/mL code = 5648013) RBC (MANUAL) (test 4.44 See_Comment [Automat ed message] code = 1794808) The system w [facility] generated this result transmitted ref erence range: 10^6/L . The reference range was not used to int erpret this result as normal/abnormal . HEMOGLOBIN (MANUAL) 11.4 GM/DL (test code = 0762674) HEMATOCRIT (MANUAL) 34.9 % (test code = ) MCV (MANUAL) (test 78.7 fL code = 20150221) MCH (MANUAL) (test 25.7 pg code = 20150219) MCHC (MANUAL) (test 32.6 GM/DL code = 20150220) RDW (MANUAL) (test 16.2 % code = 0675847) PLATELETS (MANUAL) 109 K/CU MM (test code = 7189800) MPV (MANUAL) (test 9.8 fL code = 20150222) NRBC (MANUAL) (test code = 6861460) NEUTROS PCT (MANUAL) 64.4 % (test code = 8396376) LYMPHS PCT (MANUAL) 22.7 % (test code = 4456776) MONOS PCT (MANUAL) 8.2 % (test code = 7166940) EOS PCT (MANUAL) 1.9 % (test code = 2558517) BASOS PCT (MANUAL) 2.8 % (test code = 2595610) NEUTROS ABS (MANUAL) 3.4 K/L (test code = 20150228) LYMPHS ABS (MANUAL) 1.2 K/L (test code = 3234266) MONOS ABS (MANUAL) 0.4 K/L (test code = 20150225) EOS ABS (MANUAL) 0.1 K/L (test code = 2510380) BASOS ABS (MANUAL) 0.2 K/L (test code = 3374653) [facility] function [id number] 12:45:00 Test Item Value Reference Range Interpretation Comments Protein, Total (test 7.1 See_Comment [Autom ated code = 2885-2) message] The system which generated this result transmit jenifer reference range : 6.0 - 8.3 gm/dL . The reference range was not u sed to interpret th is result as normal/abnormal . Albumin (test code = 3.7 g/dL 3.5-5 62435-2) Total Bilirubin (test 0.6 mg/dL 0.2-1.2 code = 1975-2) Bilirubin, Direct 0.3 mg/dL 0.1-0.5 (test code = 1968-7) Alkaline Phosphatase 78 U/L 40-150 (test code = 6768-6) AST (test code = 17 U/L 5-34 1920-8) ALT (test code = 17 U/L 6-55 1742-6) CARLOS (test code = CARLOS) Skin Installer ID - MARLO C Lab Interpretation Normal (test code = 47951-6) [facility]IC [id number] 12:45:00 Test Item Value Reference Range Interpretation Comments SODIUM (BEAKER) 138 meq/L 136-145 (test code = 381) POTASSIUM (BEAKER) 5.1 meq/L 3.5-5.1 (test code = 379) CHLORIDE (BEAKER) 108 meq/L 98-107 H (test code = 382) CO2 (BEAKER) (test 24 meq/L 22-29 code = 355) BLOOD UREA NITROGEN 31 mg/dL 7-21 H (BEAKER) (test code = 354) CREATININE (BEAKER) 1.50 mg/dL 0.57-1.25 H (test code = 358) GLUCOSE RANDOM 235 mg/dL 70-105 H (BEAKER) (test code = 652) CALCIUM (BEAKER) 8.8 mg/dL 8.4-10.2 (test code = 697) EGFR (BEAKER) (test 48 mL/min/1.73 ESTIMA JENIFER GFR IS code = 1092) sq m NOT ACCURATE CREATININE CLEARANCE IN PREDICTING GLOMERULAR FILTRATION RATE . ESTIMATED GFR I S NOT APPLICABLE FOR DIALYSIS PATIEN TS. Skin Installer ID - MARLO [id number] 12:45:00 Test Item Value Reference Range Interpretation Comments MAGNESIUM (BEAKER) (test code = 2.2 mg/dL 1.6-2.6 627) Skin Installer ID - MARLO CHEPATIC FUNCTION [id number] 12:45:00 Test Item Value Reference Range Interpretation Comments TOTAL PROTEIN (BEAKER) (test code = 7.1 gm/dL 6.0-8.3 770) ALBUMIN (BEAKER) (test code = 1145) 3.7 g/dL 3.5-5.0 BILIRUBIN TOTAL (BEAKER) (test code 0.6 mg/dL 0.2-1.2 = 377) BILIRUBIN DIRECT (BEAKER) (test 0.3 mg/dL 0.1-0.5 code = 706) ALKALINE PHOSPHATASE (BEAKER) (test 78 U/L 40-150 code = 346) AST (SGOT) (BEAKER) (test code = 17 U/L 5-34 353) ALT (SGPT) (BEAKER) (test code = 17 U/L 6-55 347) Skin Installer ID - MARLO CLACTATE DEHYDROGENASE (LDH)2021-02-28 12:45:00 Test Item Value Reference Range Interpretation Comments LACTATE DEHYDROGENASE (BESTACIE) (test 235 U/L 125-220 H code = 635) Skin Installer ID - MARLO CPROTHROMBIN TIME/[id number] 12:28:00 Test Item Value Reference Range Interpretation Comments PROTIME (BEAKER) 23.1 seconds 11.9-14.2 H (test code = 759) INR (BEAKER) (test 2.13 See_Comment [Automat ed message] code = 370) The system [employer] generated this result transmitted ref erence range: <=5.90. The reference range was not used to int erpret this result as normal/abnormal . Effective 04/16/2019: PT Reference Range ChangeNew: 11.9-14.2 Previous: 11.7- 14.7RECOMMENDED COUMADIN/WARFARIN INR THERAPY RANGESSTANDARD DOSE: 2.0-3.0 Includes: PROPHYLAXIS for venous thrombosis, systemic embolization; TREATMENT for venous thrombosis and/or pulmonary embolus.HIGH RISK: Target INR is2.5-3.5 for patients wiht mechanical heart valves.CBC with platelet count + automated [id number] 12:27:00 Test Item Value Reference Range Interpretation Comments WBC (test code = 6690-2) 5.0 See_Comment [A utomated message] The system [employer] generated this result transmitted ref erence range: 3.5 - 10 .5 K/L. The refe rence range was not u sed to interpret this result as normal/abnor mal. RBC (test code = 789-8) 4.16 See_Comment L [Au tomated message] The system [employer] generated this result transmitted ref erence range: 4.63 - 6 .08 M/L. The refe rence range was not u sed to interpret this result as normal/abnor mal. MCHC (test code = 786-4) 30.7 See_Comment L [A utomated message] The system [employer] generated this result transmitted ref erence range: 32.3 - 3 6.5 GM/DL. The refe rence range was not u sed to interpret this result as normal/abnor mal. Hematocrit (test code = 34.8 % 40.1-51 L 4544-3) MCV (test code = 787-2) 83.7 fL 79-92.2 MCH (test code = 785-6) 25.7 pg 25.7-32.2 RDW (test code = 788-0) 15.0 % 11.6-14.4 H Platelets (test code = 122 See_Comment L [Aut omated message] 777-3) The system [employer] generated this result transmitted ref erence range: 150 - 45 0 K/CU MM. The referen ce range was not u sed to interpret this result as normal/abnor mal. MPV (test code = 12.1 fL 9.4-12.4 08332-5) nRBC (test code = 413) 0 See_Comment [Aut omated message] The system [employer] generated this result transmitted ref erence range: 0 - 0 /1 00 WBC. The refere nce range was not u sed to interpret this result as normal/abnor mal. % Neutros (test code = 65 % 429) % Lymphs (test code = 22 % 430) % Monos (test code = 9 % 431) % Eos (test code = 432) 2 % % Baso (test code = 437) 1 % # Neutros (test code = 3.29 See_Comment [Aut omated message] 670) The system [employer] generated this result transmitted ref erence range: 1.78 - 5 .38 K/L. The refe rence range was not u sed to interpret this result as normal/abnor mal. # Lymphs (test code = 1.13 See_Comment L [Auto mated message] 414) The system [employer] generated this result transmitted ref erence range: 1.32 - 3 .57 K/L. The refe rence range was not u sed to interpret this result as normal/abnor mal. # Monos (test code = 0.44 See_Comment [Autom ated message] 415) The system [employer] generated this result transmitted ref erence range: 0.30 - 0 .82 K/L. The refe rence range was not u sed to interpret this result as normal/abnor mal. # Eos (test code = 416) 0.11 See_Comment [Au tomated message] The system [employer] generated this result transmitted ref erence range: 0.04 - 0 .54 K/L. The refe rence range was not u sed to interpret this result as normal/abnor mal. # Baso (test code = 417) 0.06 See_Comment [A utomated message] The system [employer] generated this result transmitted ref erence range: 0.01 - 0 .08 K/L. The refe rence range was not u sed to interpret this result as normal/abnor mal. Immature 0 % 0-1 Granulocytes-Relative (test code = 2801) Lab Interpretation (test Abnormal code = 20792-7) [facility] W/PLT COUNT & AUTO [id number] 12:27:00 Test Item Value Reference Range Interpretation Comments WHITE BLOOD CELL COUNT (BEAKER) 5.0 K/ L 3.5-10.5 (test code = 775) RED BLOOD CELL COUNT (BEAKER) 4.16 M/ L 4.63-6.08 L (test code = 761) HEMOGLOBIN (BEAKER) (test code = 10.7 GM/DL 13.7-17.5 L 410) HEMATOCRIT (BEAKER) (test code = 34.8 % 40.1-51.0 L 411) MEAN CORPUSCULAR VOLUME (BEAKER) 83.7 fL 79.0-92.2 (test code = 753) MEAN CORPUSCULAR HEMOGLOBIN 25.7 pg 25.7-32.2 (BEAKER) (test code = 751) MEAN CORPUSCULAR HEMOGLOBIN CONC 30.7 GM/DL 32.3-36.5 L (BEAKER) (test code = 752) RED CELL DISTRIBUTION WIDTH 15.0 % 11.6-14.4 H (BEAKER) (test code = 412) PLATELET COUNT (BEAKER) (test 122 K/CU MM 150-450 L code = 756) MEAN PLATELET VOLUME (BEAKER) 12.1 fL 9.4-12.4 (test code = 754) NUCLEATED RED BLOOD CELLS 0 /100 WBC 0-0 (BEAKER) (test code = 413) NEUTROPHILS RELATIVE PERCENT 65 % (BEAKER) (test code = 429) LYMPHOCYTES RELATIVE PERCENT 22 % (BEAKER) (test code = 430) MONOCYTES RELATIVE PERCENT 9 % (BEAKER) (test code = 431) EOSINOPHILS RELATIVE PERCENT 2 % (BEAKER) (test code = 432) BASOPHILS RELATIVE PERCENT 1 % (BEAKER) (test code = 437) NEUTROPHILS ABSOLUTE COUNT 3.29 K/ L 1.78-5.38 (BEAKER) (test code = 670) LYMPHOCYTES ABSOLUTE COUNT 1.13 K/ L 1.32-3.57 L (BEAKER) (test code = 414) MONOCYTES ABSOLUTE COUNT (BEAKER) 0.44 K/ L 0.30-0.82 (test code = 415) EOSINOPHILS ABSOLUTE COUNT 0.11 K/ L 0.04-0.54 (BEAKER) (test code = 416) BASOPHILS ABSOLUTE COUNT (BEAKER) 0.06 K/ L 0.01-0.08 (test code = 417) IMMATURE GRANULOCYTES-RELATIVE 0 % 0-1 PERCENT (BEAKER) (test code = 2801) VASCULAR DIAGRAM -[id number] 11:35:13Ordered by an unspecified provider.[facility] [id number] 08:53:00 Test Item Value Reference Range Interpretation Comments SODIUM (BEAKER) 139 meq/L 136-145 (test code = 381) POTASSIUM (BEAKER) 5.7 meq/L 3.5-5.1 H (test code = 379) CHLORIDE (BEAKER) 106 meq/L 98-107 (test code = 382) CO2 (BEAKER) (test 25 meq/L 22-29 code = 355) BLOOD UREA NITROGEN 30 mg/dL 7-21 H (BEAKER) (test code = 354) CREATININE (BEAKER) 1.76 mg/dL 0.57-1.25 H (test code = 358) GLUCOSE RANDOM 224 mg/dL 70-105 H (BEAKER) (test code = 652) CALCIUM (BEAKER) 8.8 mg/dL 8.4-10.2 (test code = 697) EGFR (BEAKER) (test 40 mL/min/1.73 ESTIMA JENIFER GFR IS code = 1092) sq m NOT ACCURATE CREATININE CLEARANCE IN PREDICTING GLOMERULAR FILTRATION RATE . ESTIMATED GFR I S NOT APPLICABLE FOR DIALYSIS PATIEN TS. Skin Installer ID - JOSE [id number] 08:53:00 Test Item Value Reference Range Interpretation Comments MAGNESIUM (BEAKER) (test code = 2.1 mg/dL 1.6-2.6 627) Skin Installer ID - JOSE MHEPATIC FUNCTION [id number] 08:53:00 Test Item Value Reference Range Interpretation Comments TOTAL PROTEIN (BEAKER) (test code = 7.0 gm/dL 6.0-8.3 770) ALBUMIN (BEAKER) (test code = 1145) 3.6 g/dL 3.5-5.0 BILIRUBIN TOTAL (BEAKER) (test code 0.4 mg/dL 0.2-1.2 = 377) BILIRUBIN DIRECT (BEAKER) (test 0.2 mg/dL 0.1-0.5 code = 706) ALKALINE PHOSPHATASE (BEAKER) (test 75 U/L 40-150 code = 346) AST (SGOT) (BEAKER) (test code = 15 U/L 5-34 353) ALT (SGPT) (BEAKER) (test code = 15 U/L 6-55 347) Skin Installer ID - JOSE MLACTATE DEHYDROGENASE (LDH)2021-01-17 08:53:00 Test Item Value Reference Range Interpretation Comments LACTATE DEHYDROGENASE (BEAKER) (test 246 U/L 125-220 H code = 635) Skin Installer ID - JOSE MPROTHROMBIN TIME/[id number] 08:46:00 Test Item Value Reference Range Interpretation Comments PROTIME (BEAKER) 24.8 seconds 11.9-14.2 H (test code = 759) INR (BEAKER) (test 2.31 See_Comment [Automat ed message] code = 370) The system [employer] generated this result transmitted ref erence range: <=5.90. The reference range was not used to int erpret this result as normal/abnormal . Effective 04/16/2019: PT Reference Range ChangeNew: 11.9-14.2 Previous: 11.7- 14.7RECOMMENDED COUMADIN/WARFARIN INR THERAPY RANGESSTANDARD DOSE: 2.0-3.0 Includes: PROPHYLAXIS for venous thrombosis, systemic embolization; TREATMENT for venous thrombosis and/or pulmonary embolus.HIGH RISK: Target INR is2.5-3.5 for patients wiht mechanical heart valves.CBC W/PLT COUNT & AUTO [id number] 08:40:00 Test Item Value Reference Range Interpretation Comments WHITE BLOOD CELL COUNT (BEAKER) 4.9 K/ L 3.5-10.5 (test code = 775) RED BLOOD CELL COUNT (BEAKER) 4.13 M/ L 4.63-6.08 L (test code = 761) HEMOGLOBIN (BEAKER) (test code = 10.8 GM/DL 13.7-17.5 L 410) HEMATOCRIT (BEAKER) (test code = 35.2 % 40.1-51.0 L 411) MEAN CORPUSCULAR VOLUME (BEAKER) 85.2 fL 79.0-92.2 (test code = 753) MEAN CORPUSCULAR HEMOGLOBIN 26.2 pg 25.7-32.2 (BEAKER) (test code = 751) MEAN CORPUSCULAR HEMOGLOBIN CONC 30.7 GM/DL 32.3-36.5 L (BEAKER) (test code = 752) RED CELL DISTRIBUTION WIDTH 14.6 % 11.6-14.4 H (BEAKER) (test code = 412) PLATELET COUNT (BEAKER) (test 116 K/CU MM 150-450 L code = 756) MEAN PLATELET VOLUME (BEAKER) 12.0 fL 9.4-12.4 (test code = 754) NUCLEATED RED BLOOD CELLS 0 /100 WBC 0-0 (BEAKER) (test code = 413) NEUTROPHILS RELATIVE PERCENT 64 % (BEAKER) (test code = 429) LYMPHOCYTES RELATIVE PERCENT 25 % (BEAKER) (test code = 430) MONOCYTES RELATIVE PERCENT 7 % (BEAKER) (test code = 431) EOSINOPHILS RELATIVE PERCENT 2 % (BEAKER) (test code = 432) BASOPHILS RELATIVE PERCENT 1 % (BEAKER) (test code = 437) NEUTROPHILS ABSOLUTE COUNT 3.11 K/ L 1.78-5.38 (BEAKER) (test code = 670) LYMPHOCYTES ABSOLUTE COUNT 1.20 K/ L 1.32-3.57 L (BEAKER) (test code = 414) MONOCYTES ABSOLUTE COUNT (BEAKER) 0.36 K/ L 0.30-0.82 (test code = 415) EOSINOPHILS ABSOLUTE COUNT 0.11 K/ L 0.04-0.54 (BEAKER) (test code = 416) BASOPHILS ABSOLUTE COUNT (BEAKER) 0.06 K/ L 0.01-0.08 (test code = 417) IMMATURE GRANULOCYTES-RELATIVE 0 % 0-1 PERCENT (BEAKER) (test code = 2801) BASIC METABOLIC [id number] 11:06:00 Test Item Value Reference Range Interpretation Comments SODIUM (BEAKER) 144 meq/L 136-145 (test code = 381) POTASSIUM (BEAKER) 4.6 meq/L 3.5-5.1 (test code = 379) CHLORIDE (BEAKER) 108 meq/L 98-107 H (test code = 382) CO2 (BEAKER) (test 33 meq/L 22-29 H code = 355) BLOOD UREA NITROGEN 23 mg/dL 7-21 H (BEAKER) (test code = 354) CREATININE (BEAKER) 1.13 mg/dL 0.57-1.25 (test code = 358) GLUCOSE RANDOM 73 mg/dL 70-105 (BEAKER) (test code = 652) CALCIUM (BEAKER) 8.9 mg/dL 8.4-10.2 (test code = 697) EGFR (BEAKER) (test 67 mL/min/1.73 ESTIMA JENIFER GFR IS code = 1092) sq m NOT ACCURATE CREATININE CLEARANCE IN PREDICTING GLOMERULAR FILTRATION RATE . ESTIMATED GFR I S NOT APPLICABLE FOR DIALYSIS PATIEN TS. Skin Installer ID - MARLO [id number] 11:06:00 Test Item Value Reference Range Interpretation Comments MAGNESIUM (BEAKER) (test code = 1.9 mg/dL 1.6-2.6 627) Skin Installer ID - MARLO CHEPATIC FUNCTION [id number] 11:06:00 Test Item Value Reference Range Interpretation Comments TOTAL PROTEIN (BEAKER) (test code = 7.0 gm/dL 6.0-8.3 770) ALBUMIN (BEAKER) (test code = 1145) 3.4 g/dL 3.5-5.0 L BILIRUBIN TOTAL (BEAKER) (test code 0.4 mg/dL 0.2-1.2 = 377) BILIRUBIN DIRECT (BEAKER) (test 0.2 mg/dL 0.1-0.5 code = 706) ALKALINE PHOSPHATASE (BEAKER) (test 84 U/L 40-150 code = 346) AST (SGOT) (BEAKER) (test code = 17 U/L 5-34 353) ALT (SGPT) (BEAKER) (test code = 15 U/L 6-55 347) Skin Installer ID - MARLO CLACTATE DEHYDROGENASE (LDH)2020-12-20 11:06:00 Test Item Value Reference Range Interpretation Comments LACTATE DEHYDROGENASE (BEAKER) (test 267 U/L 125-220 H code = 635) Skin Installer ID - MARLO CPROTHROMBIN TIME/[id number] 11:00:00 Test Item Value Reference Range Interpretation Comments PROTIME (BEAKER) (test code = 21.5 seconds 11.9-14.2 H 759) INR (BEAKER) (test code = 370) 1.92 <=5.90 Effective 04/16/2019: PT Reference Range ChangeNew: 11.9-14.2 Previous: 11.7- 14.7RECOMMENDED COUMADIN/WARFARIN INR THERAPY RANGESSTANDARD DOSE: 2.0-3.0 Includes: PROPHYLAXIS for venous thrombosis, systemic embolization; TREATMENT for venous thrombosis and/or pulmonary embolus.HIGH RISK: Target INR is2.5-3.5 for patients wiht mechanical heart valves.CBC W/PLT COUNT & AUTO [id number] 10:47:00 Test Item Value Reference Range Interpretation Comments WHITE BLOOD CELL COUNT (BEAKER) 5.2 K/ L 3.5-10.5 (test code = 775) RED BLOOD CELL COUNT (BEAKER) 4.65 M/ L 4.63-6.08 (test code = 761) HEMOGLOBIN (BEAKER) (test code = 12.1 GM/DL 13.7-17.5 L 410) HEMATOCRIT (BEAKER) (test code = 38.0 % 40.1-51.0 L 411) MEAN CORPUSCULAR VOLUME (BEAKER) 81.7 fL 79.0-92.2 (test code = 753) MEAN CORPUSCULAR HEMOGLOBIN 26.0 pg 25.7-32.2 (BEAKER) (test code = 751) MEAN CORPUSCULAR HEMOGLOBIN CONC 31.8 GM/DL 32.3-36.5 L (BEAKER) (test code = 752) RED CELL DISTRIBUTION WIDTH 14.2 % 11.6-14.4 (BEAKER) (test code = 412) PLATELET COUNT (BEAKER) (test 148 K/CU MM 150-450 L code = 756) MEAN PLATELET VOLUME (BEAKER) 11.4 fL 9.4-12.4 (test code = 754) NUCLEATED RED BLOOD CELLS 0 /100 WBC 0-0 (BEAKER) (test code = 413) NEUTROPHILS RELATIVE PERCENT 66 % (BEAKER) (test code = 429) LYMPHOCYTES RELATIVE PERCENT 23 % (BEAKER) (test code = 430) MONOCYTES RELATIVE PERCENT 7 % (BEAKER) (test code = 431) EOSINOPHILS RELATIVE PERCENT 2 % (BEAKER) (test code = 432) BASOPHILS RELATIVE PERCENT 2 % (BEAKER) (test code = 437) NEUTROPHILS ABSOLUTE COUNT 3.45 K/ L 1.78-5.38 (BEAKER) (test code = 670) LYMPHOCYTES ABSOLUTE COUNT 1.18 K/ L 1.32-3.57 L (BEAKER) (test code = 414) MONOCYTES ABSOLUTE COUNT (BEAKER) 0.38 K/ L 0.30-0.82 (test code = 415) EOSINOPHILS ABSOLUTE COUNT 0.10 K/ L 0.04-0.54 (BEAKER) (test code = 416) BASOPHILS ABSOLUTE COUNT (BEAKER) 0.09 K/ L 0.01-0.08 H (test code = 417) IMMATURE GRANULOCYTES-RELATIVE 0 % 0-1 PERCENT (BEAKER) (test code = 2801) CARDIAC CATH REPORT - [id number] 13:45:58Ordered by an unspecified provider. [facility] [id number] 10:26:00 Test Item Value Reference Range Interpretation Comments PROTEIN, TOTAL (MANUAL) (test code 7.4 gm/dL = 9867474) ALBUMIN (MANUAL) (test code = 2.9 g/dL ) ALK PHOS (MANUAL) (test code = 101 U/L ) BILIRUBIN TOTAL (MANUAL) (test 0.7 mg/dL code = 0455612) SODIUM (MANUAL) (test code = 139 meq/L 20150316) POTASSIUM (MANUAL) (test code = 3.5 meq/L 3218532) CHLORIDE (MANUAL) (test code = 101 meq/L ) CO2 (MANUAL) (test code = 5442412) 33 meq/L BUN (test code = 3094-0) 33 mg/dL 4-21 A CREATININE (MANUAL) (test code = 1.35 mg/dL ) GLUCOSE (MANUAL) (test code = 139 mg/dL ) CALCIUM (MANUAL) (test code = 8.6 mg/dL ) AST (MANUAL) (test code = 9293299) 23 U/L ALT (MANUAL) (test code = 7772278) 32 U/L Lab Interpretation (test code = Abnormal 40601-2) [facility] [id number] 11:51:00 Test Item Value Reference Range Interpretation Comments POC-Glucose Meter (test 265 mg/dL 70-110 H : TE STED AT [facility] code = 1538) [address] [facility], [address]: Skin Installer/Techni teresa ID = [id number] for LOU SARAVIA Lab Interpretation (test Abnormal code = 25212-3) [facility]-GLUCOSE [id number] 11:51:00 Test Item Value Reference Range Interpretation Comments POC-GLUCOSE METER 265 mg/dL 70-110 H : [facility] (BEAKER) (test code = [facility], 1538) [address]: Skin Installer/Techni teresa ID = [id number] for TO LOU MEJIA POCT-GLUCOSE [id number] 08:59:00 Test Item Value Reference Range Interpretation Comments POC-GLUCOSE METER 249 mg/dL 70-110 H : [facility] (BEAKER) (test code = [facility], 1538) [address]: Skin Installer/Techni teresa ID = [id number] for TO LOU MEJIA BASIC METABOLIC [id number] 01:47:00 Test Item Value Reference Range Interpretation Comments SODIUM (BEAKER) 138 meq/L 136-145 (test code = 381) POTASSIUM (BEAKER) 4.8 meq/L 3.5-5.1 (test code = 379) CHLORIDE (BEAKER) 99 meq/L 98-107 (test code = 382) CO2 (BEAKER) (test 28 meq/L 22-29 code = 355) BLOOD UREA NITROGEN 24 mg/dL 7-21 H (BEAKER) (test code = 354) CREATININE (BEAKER) 1.27 mg/dL 0.57-1.25 H (test code = 358) GLUCOSE RANDOM 263 mg/dL 70-105 H (BEAKER) (test code = 652) CALCIUM (BEAKER) 9.5 mg/dL 8.4-10.2 (test code = 697) EGFR (BEAKER) (test 58 mL/min/1.73 ESTIMA JENIFER GFR IS code = 1092) sq m NOT ACCURATE CREATININE CLEARANCE IN PREDICTING GLOMERULAR FILTRATION RATE . ESTIMATED GFR I S NOT APPLICABLE FOR DIALYSIS PATIEN TS. Skin Installer ID - ADMINCBC (Hemogram only)2020-12-03 01:32:00 Test Item Value Reference Range Interpretation Comments WBC (test code = 6690-2) 11.3 See_Comment H [A utomated message] The system Fli[employer] generated this result transmitted ref erence range: 3.5 - 10 .5 K/L. The refe rence range was not u sed to interpret this result as normal/abnor mal. RBC (test code = 789-8) 5.34 See_Comment [Au tomated message] The system [employer] generated this result transmitted ref erence range: 4.63 - 6 .08 M/L. The refe rence range was not u sed to interpret this result as normal/abnor mal. MCHC (test code = 786-4) 31.9 See_Comment L [A utomated message] The system [employer] generated this result transmitted ref erence range: 32.3 - 3 6.5 GM/DL. The refe rence range was not u sed to interpret this result as normal/abnor mal. Hematocrit (test code = 44.2 % 40.1-51 4544-3) MCV (test code = 787-2) 82.8 fL 79-92.2 MCH (test code = 785-6) 26.4 pg 25.7-32.2 RDW (test code = 788-0) 14.6 % 11.6-14.4 H Platelets (test code = 133 See_Comment L [Aut omated message] 777-3) The system [employer] generated this result transmitted ref erence range: 150 - 45 0 K/CU MM. The referen ce range was not u sed to interpret this result as normal/abnor mal. MPV (test code = 11.6 fL 9.4-12.4 07120-8) nRBC (test code = 413) 0 See_Comment [Aut omated message] The system [employer] generated this result transmitted ref erence range: 0 - 0 /1 00 WBC. The refere nce range was not u sed to interpret this result as normal/abnor mal. Lab Interpretation (test Abnormal code = 44582-3) [facility] (HEMOGRAM ONLY)2020-12-03 01:32:00 Test Item Value Reference Range Interpretation Comments WHITE BLOOD CELL COUNT (BEAKER) 11.3 K/ L 3.5-10.5 H (test code = 775) RED BLOOD CELL COUNT (BEAKER) 5.34 M/ L 4.63-6.08 (test code = 761) HEMOGLOBIN (BEAKER) (test code = 14.1 GM/DL 13.7-17.5 410) HEMATOCRIT (BEAKER) (test code = 44.2 % 40.1-51.0 411) MEAN CORPUSCULAR VOLUME (BEAKER) 82.8 fL 79.0-92.2 (test code = 753) MEAN CORPUSCULAR HEMOGLOBIN 26.4 pg 25.7-32.2 (BEAKER) (test code = 751) MEAN CORPUSCULAR HEMOGLOBIN CONC 31.9 GM/DL 32.3-36.5 L (BEAKER) (test code = 752) RED CELL DISTRIBUTION WIDTH 14.6 % 11.6-14.4 H (BEAKER) (test code = 412) PLATELET COUNT (BEAKER) (test 133 K/CU MM 150-450 L code = 756) MEAN PLATELET VOLUME (BEAKER) 11.6 fL 9.4-12.4 (test code = 754) NUCLEATED RED BLOOD CELLS 0 /100 WBC 0-0 (BEAKER) (test code = 413) PROTHROMBIN [id number] 00:48:00 Test Item Value Reference Range Interpretation Comments PROTIME (BEAKER) (test code = 19.0 seconds 11.9-14.2 H 759) INR (BEAKER) (test code = 370) 1.66 <=5.90 Effective 04/16/2019: PT Reference Range ChangeNew: 11.9-14.2 Previous: 11.7- 14.7RECOMMENDED COUMADIN/WARFARIN INR THERAPY RANGESSTANDARD DOSE: 2.0-3.0 Includes: PROPHYLAXIS for venous thrombosis, systemic embolization; TREATMENT for venous thrombosis and/or pulmonary embolus.HIGH RISK: Target INR is2.5-3.5 for patients wiht mechanical heart valves.POCT-GLUCOSE [id number] 21:48:00 Test Item Value Reference Range Interpretation Comments POC-GLUCOSE METER 266 mg/dL 70-110 H : TESTED [place] [address] (BEAKER) (test code = [facility], 1538) [address]: Skin Installer/Techni teresa ID = [id number] for DIANE SEGURA POC ACTIVATED CLOTTING [id number] 18:14:00 Test Item Value Reference Range Interpretation Comments Activated Clotting Time 301 sec : 74 -137 seconds, (test code = 441) Baseline: TESTED AT [address], [address]: Skin Installer/Techni teresa ID = [id number] for EMIL BOBBY [id number] 18:14:00 Test Item Value Reference Range Interpretation Comments ACTIVATED CLOTTING TIME 301 sec : 74 -137 seconds, (BEAKER) (test code = Baseli ne: TESTED AT 441) [address], [address]: Skin Installer/Techni teresa ID = [id number] for EMIL BOBBY [id number] 17:16:00 Test Item Value Reference Range Interpretation Comments ACTIVATED CLOTTING TIME 456 sec : 74 -137 seconds, (BEAKER) (test code = Baseli ne: TESTED AT 441) [address], [place] 30: Skin Installer/Techni teresa ID = [id number] for GARRISON VIDALES [id number] 17:02:00 Test Item Value Reference Range Interpretation Comments ACTIVATED CLOTTING TIME 417 sec : 74 -137 seconds, (BEAKER) (test code = Baseli ne: TESTED AT 441) [address], [facility] 30: Skin Installer/Techni teresa ID = [id number] for GARRISON VIDALES ECG 12 [id number] 13:54:26Interface, External Ris In - 12/02/2020 1:54 PM CSTVentricular Rate 62 BPMAtrial Rate 58 BPMQRS Duration 182 msQ-T Interval 516 msQTC Calculation(Jacob) 523 msR Vinton -86 degreesT [place]inton 65 degreesav pac ingConfirmed by MD Lund Roberto ([id number]) on 12/02/2020 1:54:24 [facility] [id number] 10:33:00 Test Item Value Reference Range Interpretation Comments SODIUM (BEAKER) 141 meq/L 136-145 (test code = 381) POTASSIUM (BEAKER) 4.1 meq/L 3.5-5.1 (test code = 379) CHLORIDE (BEAKER) 104 meq/L 98-107 (test code = 382) CO2 (BEAKER) (test 30 meq/L 22-29 H code = 355) BLOOD UREA NITROGEN 20 mg/dL 7-21 (BEAKER) (test code = 354) CREATININE (BEAKER) 0.99 mg/dL 0.57-1.25 (test code = 358) GLUCOSE RANDOM 163 mg/dL 70-105 H (BEAKER) (test code = 652) CALCIUM (BEAKER) 8.7 mg/dL 8.4-10.2 (test code = 697) EGFR (BEAKER) (test 78 mL/min/1.73 ESTIMA JENIFER GFR IS code = 1092) sq m NOT ACCURATE CREATININE CLEARANCE IN PREDICTING GLOMERULAR FILTRATION RATE . ESTIMATED GFR I S NOT APPLICABLE FOR DIALYSIS PATIEN TS. Skin Installer ID - [id number] (HEMOGRAM ONLY)2020-12-02 10:06:00 Test Item Value Reference Range Interpretation Comments WHITE BLOOD CELL COUNT (BEAKER) 5.9 K/ L 3.5-10.5 (test code = 775) RED BLOOD CELL COUNT (BEAKER) 4.52 M/ L 4.63-6.08 L (test code = 761) HEMOGLOBIN (BEAKER) (test code = 11.9 GM/DL 13.7-17.5 L 410) HEMATOCRIT (BEAKER) (test code = 37.0 % 40.1-51.0 L 411) MEAN CORPUSCULAR VOLUME (BEAKER) 81.9 fL 79.0-92.2 (test code = 753) MEAN CORPUSCULAR HEMOGLOBIN 26.3 pg 25.7-32.2 (BEAKER) (test code = 751) MEAN CORPUSCULAR HEMOGLOBIN CONC 32.2 GM/DL 32.3-36.5 L (BEAKER) (test code = 752) RED CELL DISTRIBUTION WIDTH 14.3 % 11.6-14.4 (BEAKER) (test code = 412) PLATELET COUNT (BEAKER) (test 121 K/CU MM 150-450 L code = 756) MEAN PLATELET VOLUME (BEAKER) 10.8 fL 9.4-12.4 (test code = 754) NUCLEATED RED BLOOD CELLS 0 /100 WBC 0-0 (BEAKER) (test code = 413) 2D Echo W/Doppler(CW/PW/Color)2020-11-23 10:18:07Ejection FractionSLEH ECHO HEARTLAB MKCKESSON CPACSInterface, External Ris In - 11/23/2020 10:18 AM C STTransthoracic Echocardiography Report (TTE) Demographics Patient Name CHETNA BECKHAM Date of Study 11/22/2020 ANTONETTE Gender Male Visit Number [id number] Race Room Number [facility] Number Date of 1960 Referring Physician Nina Alexandre Age 60 year(s) Rn Assessment Michelle Lord [facility] Fiber Designer Rafita Erazo Interpreting Teagan Galeano MD Physician Procedure Type of Study TTE procedure:2DECHO W DOPPLER(CW/PW/COLOR) (Routine) Indications:Known or suspected heart failure and LVAD Evaluation - Speedchange.Clinical HistoryAICD, Anemia, CAD, CKD, CHF, DM II, Hep C, HTN, Hypothyroidism, [place], HM III5/08/04, Former smokerHGB 13.0HCT 39.3 %Height: 71 inches Weight: 111.58 kg (246 lbs) BSA: 2.3 m^2 BMI: 34.31 kg/m^2HR: 64 bpm BP: 116/85 mmHg Summary LVAD Device:HMII . Baseline Speed 9000 RPM.Other speeds assessed:8000, 9400RPM 9000 RPM (baseline) -LVIDd 5.3cm; AoV partially opens ; AoV opening duration ms; trace AR; mild to moderate MR; mild TR; RVOT VTI = 12.2cm; Mitral E jamila = 0.89m/s; Ventricular septal position:nl. 8800 RPM-LVIDd 5.5cm; AoV opens ; AoV opening duration 126 ms; trace AR. 9400 RPM-LVIDd 5.2cm; AoV not opens ; trace AR. mild to moderate MR Inflow Cannula . Peak Systolic Velocity: 0.90m/sec and Peak Diastolic Velocity: 0.20m/sec. Outflow Graft . Peak Systolic Velocity: 1.30 m/sec and Peak Diastolic Velocity:0.21m/sec. Previous Study In comparison with the prior exam on 02/23/2020 there are no significant changes. Signature Electronically signed by Teagan Galeano MD(Interpreting physician) on 110:18 AM Findings Technical Quality: Good visualization Left Ventricle The left ventricle is chamber size (by vol index) is borderline enlarged. Global LV systolic function severely reduced . Left Atrium LA size is mildly enlarged . Right Ventricle RV chamber size is normal . Global RV systolic function is depressed . S' 5 cm/sec. TAPSE 1.2 cm. RV pacing wire is visualized . Right Atrium RA cavity size is normal . RA pacing wire is visualized . Aortic Valve Mild AoV cusp thickening. Mitral Valve Mild MV leaflet thickening. Srxp-jr-yncyekhn mitral regurgitation. Tricuspid Valve Mild tricuspid regurgitation. Estimated peak systolic PA pressure is 20-25 mmHg (normal range) . Pulmonic Valve Normal PV structure and function by limited views and Doppler. Aorta Aortic root size (SInus of Valsalva diameter) is normal . Pericardium No evidence of pericardial effusion. IVC/SVC/PA/PV/Pleural The estimated RA pressure by IVC dynamics 0-5mmHg . [facility] Circ Support A HeartMate IIleft ventricular assist device (LVAD) is present. Chambers/Structures Left Atrium LA Volume: 87.18 ml LA Area: 26.42 cm^2 LA Vol. Index: 38 ml/m^2 Left Ventricle LVEDV Nguyen's:169.77 ml LVEDVI: 74 ml/m^2 Right Ventricle RV Diast Dim.: 3.7 cm TAPSE: 1.2 cm RVOT VTI: 10.72 cm Doppler/Quantitative Measurements Mitral Valve MV Peak E-Wave: 0.72 m/s MV PeakA-Wave: 0.35 m/s E/A Ratio: 2.1 Peak Gradient: 2.1 mmHg Deceleration Time: 219.6 msec MV Jamila. Peak: Tricuspid Valve TR Velocity: 2.34 m/s TR Gradient: 21.9 mmHgCHI [facility] CenterMAGNLA [facility] 2020-11-22 11:30:00 Test Item Value Reference Range Interpretation Comments MAGNESIUM (BEAKER) (test code = 1.5 mg/dL 1.6-2.6 L 627) Skin Installer ID - JOSE MHEPATIC FUNCTION [id number] 11:30:00 Test Item Value Reference Range Interpretation Comments TOTAL PROTEIN (BEAKER) (test code = 6.9 gm/dL 6.0-8.3 770) ALBUMIN (BEAKER) (test code = 1145) 3.3 g/dL 3.5-5.0 L BILIRUBIN TOTAL (BEAKER) (test code 0.6 mg/dL 0.2-1.2 = 377) BILIRUBIN DIRECT (BEAKER) (test 0.3 mg/dL 0.1-0.5 code = 706) ALKALINE PHOSPHATASE (BEAKER) (test 84 U/L 40-150 code = 346) AST (SGOT) (BEAKER) (test code = 25 U/L 5-34 353) ALT (SGPT) (BEAKER) (test code = 26 U/L 6-55 347) Skin Installer ID - SHRUTHI [place]ward ID - JOSE MBASIC METABOLIC [id number] 10:03:00 Test Item Value Reference Range Interpretation Comments SODIUM (BEAKER) 140 meq/L 136-145 (test code = 381) POTASSIUM (BEAKER) 4.3 meq/L 3.5-5.1 (test code = 379) CHLORIDE (BEAKER) 103 meq/L 98-107 (test code = 382) CO2 (BEAKER) (test 31 meq/L 22-29 H code = 355) BLOOD UREA NITROGEN 23 mg/dL 7-21 H (BEAKER) (test code = 354) CREATININE (BEAKER) 1.26 mg/dL 0.57-1.25 H (test code = 358) GLUCOSE RANDOM 202 mg/dL 70-105 H (BEAKER) (test code = 652) CALCIUM (BEAKER) 8.7 mg/dL 8.4-10.2 (test code = 697) EGFR (BEAKER) (test 59 mL/min/1.73 ESTIMA JENIFER GFR IS code = 1092) sq m NOT ACCURATE CREATININE CLEARANCE IN PREDICTING GLOMERULAR FILTRATION RATE . ESTIMATED GFR I S NOT APPLICABLE FOR DIALYSIS PATIEN TS. Skin Installer ID Shyanne SHRUTHI LLACTATE DEHYDROGENASE (LDH)2020-11-22 10:03:00 Test Item Value Reference Range Interpretation Comments LACTATE DEHYDROGENASE (BEAKER) (test 292 U/L 125-220 H code = 635) Skin Installer GLO VÁZQUEZCHRISSY LPROTHROMBIN TIME/[id number] 08:50:00 Test Item Value Reference Range Interpretation Comments PROTIME (BEAKER) (test code = 24.3 seconds 11.9-14.2 H 759) INR (BEAKER) (test code = 370) 2.25 <=5.90 Effective 04/16/2019: PT Reference Range ChangeNew: 11.9-14.2 Previous: 11.7- 14.7RECOMMENDED COUMADIN/WARFARIN INR THERAPY RANGESSTANDARD DOSE: 2.0-3.0 Includes: PROPHYLAXIS for venous thrombosis, systemic embolization; TREATMENT for venous thrombosis and/or pulmonary embolus.HIGH RISK: Target INR is2.5-3.5 for patients wiht mechanical heart valves.CBC W/PLT COUNT & AUTO [id number] 08:41:00 Test Item Value Reference Range Interpretation Comments WHITE BLOOD CELL COUNT (BEAKER) 6.6 K/ L 3.5-10.5 (test code = 775) RED BLOOD CELL COUNT (BEAKER) 4.85 M/ L 4.63-6.08 (test code = 761) HEMOGLOBIN (BEAKER) (test code = 13.0 GM/DL 13.7-17.5 L 410) HEMATOCRIT (BEAKER) (test code = 39.3 % 40.1-51.0 L 411) MEAN CORPUSCULAR VOLUME (BEAKER) 81.0 fL 79.0-92.2 (test code = 753) MEAN CORPUSCULAR HEMOGLOBIN 26.8 pg 25.7-32.2 (BEAKER) (test code = 751) MEAN CORPUSCULAR HEMOGLOBIN CONC 33.1 GM/DL 32.3-36.5 (BEAKER) (test code = 752) RED CELL DISTRIBUTION WIDTH 14.3 % 11.6-14.4 (BEAKER) (test code = 412) PLATELET COUNT (BEAKER) (test 129 K/CU MM 150-450 L code = 756) MEAN PLATELET VOLUME (BEAKER) 10.8 fL 9.4-12.4 (test code = 754) NUCLEATED RED BLOOD CELLS 0 /100 WBC 0-0 (BEAKER) (test code = 413) NEUTROPHILS RELATIVE PERCENT 69 % (BEAKER) (test code = 429) LYMPHOCYTES RELATIVE PERCENT 21 % (BEAKER) (test code = 430) MONOCYTES RELATIVE PERCENT 7 % (BEAKER) (test code = 431) EOSINOPHILS RELATIVE PERCENT 2 % (BEAKER) (test code = 432) BASOPHILS RELATIVE PERCENT 1 % (BEAKER) (test code = 437) NEUTROPHILS ABSOLUTE COUNT 4.49 K/ L 1.78-5.38 (BEAKER) (test code = 670) LYMPHOCYTES ABSOLUTE COUNT 1.39 K/ L 1.32-3.57 (BEAKER) (test code = 414) MONOCYTES ABSOLUTE COUNT (BEAKER) 0.46 K/ L 0.30-0.82 (test code = 415) EOSINOPHILS ABSOLUTE COUNT 0.12 K/ L 0.04-0.54 (BEAKER) (test code = 416) BASOPHILS ABSOLUTE COUNT (BEAKER) 0.08 K/ L 0.01-0.08 (test code = 417) IMMATURE GRANULOCYTES-RELATIVE 0 % 0-1 PERCENT (BEAKER) (test code = 2801) PROTHROMBIN [id number] 11:35:00 Test Item Value Reference Range Interpretation Comments PROTIME (BEAKER) (test code = 22.8 seconds 11.9-14.2 H 759) INR (BEAKER) (test code = 370) 2.07 <=5.90 Effective 04/16/2019: PT Reference Range ChangeNew: 11.9-14.2 Previous: 11.7- 14.7RECOMMENDED COUMADIN/WARFARIN INR THERAPY RANGESSTANDARD DOSE: 2.0-3.0 Includes: PROPHYLAXIS for venous thrombosis, systemic embolization; TREATMENT for venous thrombosis and/or pulmonary embolus.HIGH RISK: Target INR is2.5-3.5 for patients wiht mechanical heart valves.[id number] 11:29:00 Test Item Value Reference Range Interpretation Comments MAGNESIUM (BEAKER) (test code = 1.6 mg/dL 1.6-2.6 627) Skin Installer ID - MARLO [facility]ABOL[facility] [id number] 11:29:00 Test Item Value Reference Range Interpretation Comments SODIUM (BEAKER) 139 meq/L 136-145 (test code = 381) POTASSIUM (BEAKER) 4.1 meq/L 3.5-5.1 (test code = 379) CHLORIDE (BEAKER) 102 meq/L 98-107 (test code = 382) CO2 (BEAKER) (test 31 meq/L 22-29 H code = 355) BLOOD UREA NITROGEN 20 mg/dL 7-21 (BEAKER) (test code = 354) CREATININE (BEAKER) 1.21 mg/dL 0.57-1.25 (test code = 358) GLUCOSE RANDOM 200 mg/dL 70-105 H (BEAKER) (test code = 652) CALCIUM (BEAKER) 8.5 mg/dL 8.4-10.2 (test code = 697) EGFR (BEAKER) (test 62 mL/min/1.73 ESTIMA JENIFER GFR IS code = 1092) sq m NOT ACCURATE CREATININE CLEARANCE IN PREDICTING GLOMERULAR FILTRATION RATE . ESTIMATED GFR I S NOT APPLICABLE FOR DIALYSIS PATIEN TS. Skin Installer ID - MARLO [facility] FUNCTION [id number] 11:29:00 Test Item Value Reference Range Interpretation Comments TOTAL PROTEIN (BEAKER) (test code = 7.3 gm/dL 6.0-8.3 770) ALBUMIN (BEAKER) (test code = 1145) 3.4 g/dL 3.5-5.0 L BILIRUBIN TOTAL (BEAKER) (test code 0.8 mg/dL 0.2-1.2 = 377) BILIRUBIN DIRECT (BEAKER) (test 0.4 mg/dL 0.1-0.5 code = 706) ALKALINE PHOSPHATASE (BEAKER) (test 112 U/L 40-150 code = 346) AST (SGOT) (BEAKER) (test code = 17 U/L 5-34 353) ALT (SGPT) (BEAKER) (test code = 22 U/L 6-55 347) Skin Installer ID - MARLO CLACTATE DEHYDROGENASE (LDH)2020-08-16 11:29:00 Test Item Value Reference Range Interpretation Comments LACTATE DEHYDROGENASE (BEAKER) (test 263 U/L 125-220 H code = 635) Skin Installer ID - MARLO CCBC W/PLT COUNT & AUTO [id number] 11:08:00 Test Item Value Reference Range Interpretation Comments WHITE BLOOD CELL COUNT (BEAKER) 7.5 K/ L 3.5-10.5 (test code = 775) RED BLOOD CELL COUNT (BEAKER) 4.70 M/ L 4.63-6.08 (test code = 761) HEMOGLOBIN (BEAKER) (test code = 13.2 GM/DL 13.7-17.5 L 410) HEMATOCRIT (BEAKER) (test code = 39.4 % 40.1-51.0 L 411) MEAN CORPUSCULAR VOLUME (BEAKER) 83.8 fL 79.0-92.2 (test code = 753) MEAN CORPUSCULAR HEMOGLOBIN 28.1 pg 25.7-32.2 (BEAKER) (test code = 751) MEAN CORPUSCULAR HEMOGLOBIN CONC 33.5 GM/DL 32.3-36.5 (BEAKER) (test code = 752) RED CELL DISTRIBUTION WIDTH 14.7 % 11.6-14.4 H (BEAKER) (test code = 412) PLATELET COUNT (BEAKER) (test 161 K/CU MM 150-450 code = 756) MEAN PLATELET VOLUME (BEAKER) 10.1 fL 9.4-12.4 (test code = 754) NUCLEATED RED BLOOD CELLS 0 /100 WBC 0-0 (BEAKER) (test code = 413) NEUTROPHILS RELATIVE PERCENT 68 % (BEAKER) (test code = 429) LYMPHOCYTES RELATIVE PERCENT 22 % (BEAKER) (test code = 430) MONOCYTES RELATIVE PERCENT 6 % (BEAKER) (test code = 431) EOSINOPHILS RELATIVE PERCENT 2 % (BEAKER) (test code = 432) BASOPHILS RELATIVE PERCENT 1 % (BEAKER) (test code = 437) NEUTROPHILS ABSOLUTE COUNT 5.13 K/ L 1.78-5.38 (BEAKER) (test code = 670) LYMPHOCYTES ABSOLUTE COUNT 1.67 K/ L 1.32-3.57 (BEAKER) (test code = 414) MONOCYTES ABSOLUTE COUNT (BEAKER) 0.46 K/ L 0.30-0.82 (test code = 415) EOSINOPHILS ABSOLUTE COUNT 0.16 K/ L 0.04-0.54 (BEAKER) (test code = 416) BASOPHILS ABSOLUTE COUNT (BEAKER) 0.09 K/ L 0.01-0.08 H (test code = 417) IMMATURE GRANULOCYTES-RELATIVE 0 % 0-1 PERCENT (BEAKER) (test code = 2801) Lipid [id number] 09:09:00 Test Item Value Reference Range Interpretation Comments Triglycerides (test code = 2571-8) 132 mg/dL Cholesterol (test code = 2093-3) 186 mg/dL HDL (test code = 2085-9) 41 mg/dL LDL Calculated (test code = 120 mg/dL 59585-0) [facility] Test Item Value Reference Range Interpretation Comments FERRITIN (MANUAL) (test code = 70 ng/mL [id number]) [id number] 09:09:00 Test Item Value Reference Range Interpretation Comments Hemoglobin A1C (test code = 4548-4) 6.5 % 4-6 A Lab Interpretation (test code = Abnormal 18325-6) [facility] Test Item Value Reference Range Interpretation Comments TSH (MANUAL) (test code = 4558785) 1.64 uIU/mL [facility], % sat. (without ferritin)2020-05-25 09:09:00 Test Item Value Reference Range Interpretation Comments IRON (MANUAL) (test code = 4767311) 72 mcg/dL TIBC (MANUAL) (test code = 3872257) 333 mcg/dl IRON % SATURATION (MANUAL) (test code = 22 % 1049656) [id number] 13:22:00 Test Item Value Reference Range Interpretation Comments PROTIME (BEAKER) (test code = 22.2 seconds 11.9-14.2 H 759) INR (BEAKER) (test code = 370) 2.0 <=5.9 Effective 04/16/2019: PT Reference Range ChangeNew: 11.9-14.2 Previous: 11.7- 14.7RECOMMENDED COUMADIN/WARFARIN INR THERAPY RANGESSTANDARD DOSE: 2.0-3.0 Includes: PROPHYLAXIS for venous thrombosis, systemic embolization; TREATMENT for venous thrombosis and/or pulmonary embolus.HIGH RISK: Target INR is2.5-3.5 for patients wiht mechanical heart valves.LACTATE DEHYDROGENASE (LDH)2020-02-23 12:50:00 Test Item Value Reference Range Interpretation Comments LACTATE DEHYDROGENASE (BEAKER) (test 308 U/L 125-220 H code = 635) Skin Installer ID - [id number] 12:50:00 Test Item Value Reference Range Interpretation Comments MAGNESIUM (BEAKER) (test code = 1.7 mg/dL 1.6-2.6 627) Skin Installer ID - JOSE ANTONIOCOMPREHENSIVE METABOLIC [id number] 10:35:00 Test Item Value Reference Range Interpretation Comments TOTAL PROTEIN 7.0 gm/dL 6.0-8.3 (BEAKER) (test code = 770) ALBUMIN (BEAKER) 3.4 g/dL 3.5-5.0 L (test code = 1145) ALKALINE PHOSPHATASE 92 U/L 40-150 (BEAKER) (test code = 346) BILIRUBIN TOTAL 0.6 mg/dL 0.2-1.2 (BEAKER) (test code = 377) SODIUM (BEAKER) (test 137 meq/L 136-145 code = 381) POTASSIUM (BEAKER) 4.1 meq/L 3.5-5.1 (test code = 379) CHLORIDE (BEAKER) 102 meq/L 98-107 (test code = 382) CO2 (BEAKER) (test 30 meq/L 22-29 H code = 355) BLOOD UREA NITROGEN 28 mg/dL 7-21 H (BEAKER) (test code = 354) CREATININE (BEAKER) 1.17 mg/dL 0.57-1.25 (test code = 358) GLUCOSE RANDOM 226 mg/dL 70-105 H (BEAKER) (test code = 652) CALCIUM (BEAKER) 9.0 mg/dL 8.4-10.2 (test code = 697) AST (SGOT) (BEAKER) 17 U/L 5-34 (test code = 353) ALT (SGPT) (BEAKER) 22 U/L 6-55 (test code = 347) EGFR (BEAKER) (test 64 mL/min/1.73 ESTIMA JENIFER GFR IS code = 1092) sq m NOT ACCURATE CREATININE CLEARANCE IN PREDICTING GLOMERULAR FILTRATION RATE . ESTIMATED GFR I S NOT APPLICABLE FOR DIALYSIS PATIEN TS. Skin Installer ID - EMERSONCBC W/PLT COUNT & AUTO [id number] 10:20:00 Test Item Value Reference Range Interpretation Comments WHITE BLOOD CELL COUNT (BEAKER) 6.7 K/ L 3.5-10.5 (test code = 775) RED BLOOD CELL COUNT (BEAKER) 4.68 M/ L 4.63-6.08 (test code = 761) HEMOGLOBIN (BEAKER) (test code = 13.5 GM/DL 13.7-17.5 L 410) HEMATOCRIT (BEAKER) (test code = 39.1 % 40.1-51.0 L 411) MEAN CORPUSCULAR VOLUME (BEAKER) 83.5 fL 79.0-92.2 (test code = 753) MEAN CORPUSCULAR HEMOGLOBIN 28.8 pg 25.7-32.2 (BEAKER) (test code = 751) MEAN CORPUSCULAR HEMOGLOBIN CONC 34.5 GM/DL 32.3-36.5 (BEAKER) (test code = 752) RED CELL DISTRIBUTION WIDTH 13.9 % 11.6-14.4 (BEAKER) (test code = 412) PLATELET COUNT (BEAKER) (test 147 K/CU MM 150-450 L code = 756) MEAN PLATELET VOLUME (BEAKER) 10.6 fL 9.4-12.4 (test code = 754) NUCLEATED RED BLOOD CELLS 0 /100 WBC 0-0 (BEAKER) (test code = 413) NEUTROPHILS RELATIVE PERCENT 62 % (BEAKER) (test code = 429) LYMPHOCYTES RELATIVE PERCENT 27 % (BEAKER) (test code = 430) MONOCYTES RELATIVE PERCENT 7 % (BEAKER) (test code = 431) EOSINOPHILS RELATIVE PERCENT 2 % (BEAKER) (test code = 432) BASOPHILS RELATIVE PERCENT 1 % (BEAKER) (test code = 437) NEUTROPHILS ABSOLUTE COUNT 4.19 K/ L 1.78-5.38 (BEAKER) (test code = 670) LYMPHOCYTES ABSOLUTE COUNT 1.81 K/ L 1.32-3.57 (BEAKER) (test code = 414) MONOCYTES ABSOLUTE COUNT (BEAKER) 0.48 K/ L 0.30-0.82 (test code = 415) EOSINOPHILS ABSOLUTE COUNT 0.16 K/ L 0.04-0.54 (BEAKER) (test code = 416) BASOPHILS ABSOLUTE COUNT (BEAKER) 0.08 K/ L 0.01-0.08 (test code = 417) IMMATURE GRANULOCYTES-RELATIVE 0 % 0-1 PERCENT (BEAKER) (test code = 2801) LACTATE DEHYDROGENASE (LDH)2019-12-15 12:49:00 Test Item Value Reference Range Interpretation Comments LACTATE DEHYDROGENASE 379 U/L 125-220 H Specim en moderately (BEAKER) (test code = hemoly zed 635) Skin Installer GLO ESCUDERO [id number] 12:29:00 Test Item Value Reference Range Interpretation Comments MAGNESIUM (BEAKER) 1.8 mg/dL 1.6-2.6 Specimen moderately (test code = 627) hemolyzed Skin Installer GLO ESCUDERO FBASIC METABOLIC [id number] 12:29:00 Test Item Value Reference Range Interpretation Comments SODIUM (BEAKER) 136 meq/L 136-145 (test code = 381) POTASSIUM (BEAKER) 5.3 meq/L 3.5-5.1 H Specimen moderately (test code = 379) hemolyzed CHLORIDE (BEAKER) 105 meq/L 98-107 (test code = 382) CO2 (BEAKER) (test 27 meq/L 22-29 code = 355) BLOOD UREA NITROGEN 19 mg/dL 7-21 (BEAKER) (test code = 354) CREATININE (BEAKER) 1.03 mg/dL 0.57-1.25 Specimen moderately (test code = 358) hemolyzed GLUCOSE RANDOM 158 mg/dL 70-105 H (BEAKER) (test code = 652) CALCIUM (BEAKER) 8.9 mg/dL 8.4-10.2 (test code = 697) EGFR (BEAKER) (test 74 mL/min/1.73 ESTIMA JENIFER GFR IS code = 1092) sq m NOT ACCURATE CREATININE CLEARANCE IN PREDICTING GLOMERULAR FILTRATION RATE . ESTIMATED GFR I S NOT APPLICABLE FOR DIALYSIS PATIEN TS. Skin Installer ID Shyanne ESCUDERO FHEPATIC FUNCTION [id number] 12:29:00 Test Item Value Reference Range Interpretation Comments TOTAL PROTEIN (BEAKER) 7.4 gm/dL 6.0-8.3 Speci men moderately (test code = 770) hemolyzed ALBUMIN (BEAKER) (test 3.5 g/dL 3.5-5.0 Speci men moderately code = 1145) hemolyzed BILIRUBIN TOTAL 0.8 mg/dL 0.2-1.2 Specimen mod erately (BEAKER) (test code = hemoly zed 377) BILIRUBIN DIRECT 0.3 mg/dL 0.1-0.5 Specimen mo derately (BEAKER) (test code = hemoly zed 706) ALKALINE PHOSPHATASE 100 U/L 40-150 (BEAKER) (test code = 346) AST (SGOT) (BEAKER) 41 U/L 5-34 H Specimen moderately (test code = 353) hemolyzed ALT (SGPT) (BEAKER) 31 U/L 6-55 Specimen moderately (test code = 347) hemolyzed Skin Installer ID Shyanne ESCUDERO FPROTHROMBIN [id number] 12:02:00 Test Item Value Reference Range Interpretation Comments PROTIME (BEAKER) (test code = 17.8 seconds 11.9-14.2 H 759) INR (BEAKER) (test code = 370) 1.5 <=5.9 Effective 04/16/2019: PT Reference Range ChangeNew: 11.9-14.2 Previous: 11.7- 14.7RECOMMENDED COUMADIN/WARFARIN INR THERAPY RANGESSTANDARD DOSE: 2.0-3.0 Includes: PROPHYLAXIS for venous thrombosis, systemic embolization; TREATMENT for venous thrombosis and/or pulmonary embolus.HIGH RISK: Target INR is2.5-3.5 for patients wiht mechanical heart valves.CBC W/PLT COUNT & AUTO [id number] 11:55:00 Test Item Value Reference Range Interpretation Comments WHITE BLOOD CELL COUNT (BEAKER) 7.8 K/ L 3.5-10.5 (test code = 775) RED BLOOD CELL COUNT (BEAKER) 4.83 M/ L 4.63-6.08 (test code = 761) HEMOGLOBIN (BEAKER) (test code = 14.2 GM/DL 13.7-17.5 410) HEMATOCRIT (BEAKER) (test code = 40.4 % 40.1-51.0 411) MEAN CORPUSCULAR VOLUME (BEAKER) 83.6 fL 79.0-92.2 (test code = 753) MEAN CORPUSCULAR HEMOGLOBIN 29.4 pg 25.7-32.2 (BEAKER) (test code = 751) MEAN CORPUSCULAR HEMOGLOBIN CONC 35.1 GM/DL 32.3-36.5 (BEAKER) (test code = 752) RED CELL DISTRIBUTION WIDTH 13.6 % 11.6-14.4 (BEAKER) (test code = 412) PLATELET COUNT (BEAKER) (test 135 K/CU MM 150-450 L code = 756) MEAN PLATELET VOLUME (BEAKER) 10.8 fL 9.4-12.4 (test code = 754) NUCLEATED RED BLOOD CELLS 0 /100 WBC 0-0 (BEAKER) (test code = 413) NEUTROPHILS RELATIVE PERCENT 71 % (BEAKER) (test code = 429) LYMPHOCYTES RELATIVE PERCENT 21 % (BEAKER) (test code = 430) MONOCYTES RELATIVE PERCENT 6 % (BEAKER) (test code = 431) EOSINOPHILS RELATIVE PERCENT 2 % (BEAKER) (test code = 432) BASOPHILS RELATIVE PERCENT 1 % (BEAKER) (test code = 437) NEUTROPHILS ABSOLUTE COUNT 5.50 K/ L 1.78-5.38 H (BEAKER) (test code = 670) LYMPHOCYTES ABSOLUTE COUNT 1.61 K/ L 1.32-3.57 (BEAKER) (test code = 414) MONOCYTES ABSOLUTE COUNT (BEAKER) 0.43 K/ L 0.30-0.82 (test code = 415) EOSINOPHILS ABSOLUTE COUNT 0.14 K/ L 0.04-0.54 (BEAKER) (test code = 416) BASOPHILS ABSOLUTE COUNT (BEAKER) 0.07 K/ L 0.01-0.08 (test code = 417) IMMATURE GRANULOCYTES-RELATIVE 0 % 0-1 PERCENT (BEAKER) (test code = 2801) PROTHROMBIN [id number] 10:09:00 Test Item Value Reference Range Interpretation Comments PROTIME (BEAKER) (test code = 32.8 seconds 11.9-14.2 H 759) INR (BEAKER) (test code = 370) 3.4 <=5.9 Effective 04/16/2019: PT Reference Range ChangeNew: 11.9-14.2 Previous: 11.7- 14.7RECOMMENDED COUMADIN/WARFARIN INR THERAPY RANGESSTANDARD DOSE: 2.0-3.0 Includes: PROPHYLAXIS for venous thrombosis, systemic embolization; TREATMENT for venous thrombosis and/or pulmonary embolus.HIGH RISK: Target INR is2.5-3.5 for patients wiht mechanical heart valves.LACTATE DEHYDROGENASE (LDH)2019-07-25 10:08:00 Test Item Value Reference Range Interpretation Comments LACTATE DEHYDROGENASE 310 U/L 125-220 H Specim en slightly (BEAKER) (test code = hemoly zed 635) [id number] 10:07:00 Test Item Value Reference Range Interpretation Comments MAGNESIUM (BEAKER) 1.8 mg/dL 1.6-2.6 Specimen slightly (test code = 627) hemolyzed BASIC METABOLIC [id number] 10:07:00 Test Item Value Reference Range Interpretation Comments SODIUM (BEAKER) 140 meq/L 136-145 (test code = 381) POTASSIUM (BEAKER) 4.7 meq/L 3.5-5.1 Specimen slightly (test code = 379) hemolyzed CHLORIDE (BEAKER) 106 meq/L 98-107 (test code = 382) CO2 (BEAKER) (test 28 meq/L 22-29 code = 355) BLOOD UREA NITROGEN 40 mg/dL 7-21 H (BEAKER) (test code = 354) CREATININE (BEAKER) 1.28 mg/dL 0.57-1.25 H Specimen slightly (test code = 358) hemolyzed GLUCOSE RANDOM 171 mg/dL 70-105 H (BEAKER) (test code = 652) CALCIUM (BEAKER) 8.7 mg/dL 8.4-10.2 (test code = 697) EGFR (BEAKER) (test 58 mL/min/1.73 ESTIMA JENIFER GFR IS code = 1092) sq m NOT ACCURATE CREATININE CLEARANCE IN PREDICTING GLOMERULAR FILTRATION RATE . ESTIMATED GFR I S NOT APPLICABLE FOR DIALYSIS PATIEN TS. LIPID [id number] 10:07:00 Test Item Value Reference Range Interpretation Comments TRIGLYCERIDES (BEAKER) 173 mg/dL Speci men slightly (test code = 540) hemolyzed CHOLESTEROL (BEAKER) 152 mg/dL Specime n slightly (test code = 631) hemolyzed HDL CHOLESTEROL (BEAKER) 32 mg/dL (test code = 976) LDL CHOLESTEROL 85 mg/dL CALCULATED (BEAKER) (test code = 633) Triglyceride Reference Range: Low Risk <150 Borderline 150-199 High Risk 200-499 Very High Risk >=500Cholesterol Reference Range: Low Risk <200 Borderline 200-239 High Risk >240HDL Cholesterol Reference Range: Low Risk >=60 High Risk <40LDL Cholesterol Reference Range: Optimal <100 Near Optimal 100-129 Borderline 130-159 High 160-189 Very High >=190HEPATIC FUNCTION [id number] 10:07:00 Test Item Value Reference Range Interpretation Comments TOTAL PROTEIN (BEAKER) 7.4 gm/dL 6.0-8.3 Speci men slightly (test code = 770) hemolyzed ALBUMIN (BEAKER) (test 3.7 g/dL 3.5-5.0 Speci men slightly code = 1145) hemolyzed BILIRUBIN TOTAL 0.6 mg/dL 0.2-1.2 Specimen sli ghtly (BEAKER) (test code = hemoly zed 377) BILIRUBIN DIRECT 0.3 mg/dL 0.1-0.5 Specimen sl ightly (BEAKER) (test code = hemoly zed 706) ALKALINE PHOSPHATASE 107 U/L 40-150 (BEAKER) (test code = 346) AST (SGOT) (BEAKER) 28 U/L 5-34 Specimen slightly (test code = 353) hemolyzed ALT (SGPT) (BEAKER) 33 U/L 6-55 Specimen slightly (test code = 347) hemolyzed CBC W/PLT COUNT & AUTO [id number] 09:44:00 Test Item Value Reference Range Interpretation Comments WHITE BLOOD CELL COUNT (BEAKER) 6.6 K/ L 3.5-10.5 (test code = 775) RED BLOOD CELL COUNT (BEAKER) 4.73 M/ L 4.63-6.08 (test code = 761) HEMOGLOBIN (BEAKER) (test code = 14.4 GM/DL 13.7-17.5 410) HEMATOCRIT (BEAKER) (test code = 40.6 % 40.1-51.0 411) MEAN CORPUSCULAR VOLUME (BEAKER) 85.8 fL 79.0-92.2 (test code = 753) MEAN CORPUSCULAR HEMOGLOBIN 30.4 pg 25.7-32.2 (BEAKER) (test code = 751) MEAN CORPUSCULAR HEMOGLOBIN CONC 35.5 GM/DL 32.3-36.5 (BEAKER) (test code = 752) RED CELL DISTRIBUTION WIDTH 14.5 % 11.6-14.4 H (BEAKER) (test code = 412) PLATELET COUNT (BEAKER) (test 146 K/CU MM 150-450 L code = 756) MEAN PLATELET VOLUME (BEAKER) 10.7 fL 9.4-12.4 (test code = 754) NUCLEATED RED BLOOD CELLS 0 /100 WBC 0-0 (BEAKER) (test code = 413) NEUTROPHILS RELATIVE PERCENT 62 % (BEAKER) (test code = 429) LYMPHOCYTES RELATIVE PERCENT 27 % (BEAKER) (test code = 430) MONOCYTES RELATIVE PERCENT 8 % (BEAKER) (test code = 431) EOSINOPHILS RELATIVE PERCENT 2 % (BEAKER) (test code = 432) BASOPHILS RELATIVE PERCENT 1 % (BEAKER) (test code = 437) NEUTROPHILS ABSOLUTE COUNT 4.05 K/ L 1.78-5.38 (BEAKER) (test code = 670) LYMPHOCYTES ABSOLUTE COUNT 1.78 K/ L 1.32-3.57 (BEAKER) (test code = 414) MONOCYTES ABSOLUTE COUNT (BEAKER) 0.49 K/ L 0.30-0.82 (test code = 415) EOSINOPHILS ABSOLUTE COUNT 0.15 K/ L 0.04-0.54 (BEAKER) (test code = 416) BASOPHILS ABSOLUTE COUNT (BEAKER) 0.08 K/ L 0.01-0.08 (test code = 417) IMMATURE GRANULOCYTES-RELATIVE 0 % 0-1 PERCENT (BEAKER) (test code = 2801) PROTHROMBIN [id number] 10:26:00 Test Item Value Reference Range Interpretation Comments PROTIME (BEAKER) (test code = 23.9 seconds 11.9-14.2 H 759) INR (BEAKER) (test code = 370) 2.3 <=5.9 Effective 04/16/2019: PT Reference Range ChangeNew: 11.9-14.2 Previous: 11.7- 14.7RECOMMENDED COUMADIN/WARFARIN INR THERAPY RANGESSTANDARD DOSE: 2.0-3.0 Includes: PROPHYLAXIS for venous thrombosis, systemic embolization; TREATMENT for venous thrombosis and/or pulmonary embolus.HIGH RISK: Target INR is2.5-3.5 for patients wiht mechanical heart valves.[id number] 10:24:00 Test Item Value Reference Range Interpretation Comments MAGNESIUM (BEAKER) (test code = 1.5 mg/dL 1.6-2.6 L 627) BASIC METABOLIC [id number] 10:24:00 Test Item Value Reference Range Interpretation Comments SODIUM (BEAKER) 139 meq/L 136-145 (test code = 381) POTASSIUM (BEAKER) 3.9 meq/L 3.5-5.1 (test code = 379) CHLORIDE (BEAKER) 102 meq/L 98-107 (test code = 382) CO2 (BEAKER) (test 31 meq/L 22-29 H code = 355) BLOOD UREA NITROGEN 21 mg/dL 7-21 (BEAKER) (test code = 354) CREATININE (BEAKER) 1.07 mg/dL 0.57-1.25 (test code = 358) GLUCOSE RANDOM 225 mg/dL 70-105 H (BEAKER) (test code = 652) CALCIUM (BEAKER) 8.8 mg/dL 8.4-10.2 (test code = 697) EGFR (BEAKER) (test 71 mL/min/1.73 ESTIMA JENIFER GFR IS code = 1092) sq m NOT ACCURATE CREATININE CLEARANCE IN PREDICTING GLOMERULAR FILTRATION RATE . ESTIMATED GFR I S NOT APPLICABLE FOR DIALYSIS PATIEN TS. HEPATIC FUNCTION [id number] 10:24:00 Test Item Value Reference Range Interpretation Comments TOTAL PROTEIN (BEAKER) (test code = 6.7 gm/dL 6.0-8.3 770) ALBUMIN (BEAKER) (test code = 1145) 3.1 g/dL 3.5-5.0 L BILIRUBIN TOTAL (BEAKER) (test code 0.7 mg/dL 0.2-1.2 = 377) BILIRUBIN DIRECT (BEAKER) (test 0.4 mg/dL 0.1-0.5 code = 706) ALKALINE PHOSPHATASE (BEAKER) (test 147 U/L 40-150 code = 346) AST (SGOT) (BEAKER) (test code = 26 U/L 5-34 353) ALT (SGPT) (BEAKER) (test code = 35 U/L 6-55 347) LACTATE DEHYDROGENASE (LDH)2019-05-02 10:24:00 Test Item Value Reference Range Interpretation Comments LACTATE DEHYDROGENASE (BEAKER) (test 259 U/L 125-220 H code = 635) CBC W/PLT COUNT & AUTO [id number] 10:08:00 Test Item Value Reference Range Interpretation Comments WHITE BLOOD CELL COUNT (BEAKER) 5.9 K/ L 3.5-10.5 (test code = 775) RED BLOOD CELL COUNT (BEAKER) 4.49 M/ L 4.63-6.08 L (test code = 761) HEMOGLOBIN (BEAKER) (test code = 13.0 GM/DL 13.7-17.5 L 410) HEMATOCRIT (BEAKER) (test code = 38.3 % 40.1-51.0 L 411) MEAN CORPUSCULAR VOLUME (BEAKER) 85.3 fL 79.0-92.2 (test code = 753) MEAN CORPUSCULAR HEMOGLOBIN 29.0 pg 25.7-32.2 (BEAKER) (test code = 751) MEAN CORPUSCULAR HEMOGLOBIN CONC 33.9 GM/DL 32.3-36.5 (BEAKER) (test code = 752) RED CELL DISTRIBUTION WIDTH 13.2 % 11.6-14.4 (BEAKER) (test code = 412) PLATELET COUNT (BEAKER) (test 167 K/CU MM 150-450 code = 756) MEAN PLATELET VOLUME (BEAKER) 10.0 fL 9.4-12.4 (test code = 754) NUCLEATED RED BLOOD CELLS 0 /100 WBC 0-0 (BEAKER) (test code = 413) NEUTROPHILS RELATIVE PERCENT 71 % (BEAKER) (test code = 429) LYMPHOCYTES RELATIVE PERCENT 19 % (BEAKER) (test code = 430) MONOCYTES RELATIVE PERCENT 7 % (BEAKER) (test code = 431) EOSINOPHILS RELATIVE PERCENT 2 % (BEAKER) (test code = 432) BASOPHILS RELATIVE PERCENT 1 % (BEAKER) (test code = 437) NEUTROPHILS ABSOLUTE COUNT 4.14 K/ L 1.78-5.38 (BEAKER) (test code = 670) LYMPHOCYTES ABSOLUTE COUNT 1.11 K/ L 1.32-3.57 L (BEAKER) (test code = 414) MONOCYTES ABSOLUTE COUNT (BEAKER) 0.42 K/ L 0.30-0.82 (test code = 415) EOSINOPHILS ABSOLUTE COUNT 0.10 K/ L 0.04-0.54 (BEAKER) (test code = 416) BASOPHILS ABSOLUTE COUNT (BEAKER) 0.07 K/ L 0.01-0.08 (test code = 417) IMMATURE GRANULOCYTES-RELATIVE 0 % 0-1 PERCENT (BEAKER) (test code = 2801) TISSUE [id number] 19:33:00Surgical Pathology Report Case: [id number] Authorizing Provider: Juan Carlos Eyl MD Collected: 04/09/2019 1722 Ordering Location: [facility] Radiology Angio Received: 04/10/2019 0740 Pathologist: Arun Garibay MD Specimen: Biopsy, Liver, liver fibrosis LIVER, TRANSJUGULAR NEEDLE BIOPSY- CIRRHOSIS- SINUSOIDAL DILATATION, CONSISTENT WITH CONGESTIVE HEPATOPATHY Signing Pathologist Direct Phone Line: [phone] signed by Arun Garibay MD on 04/10/2019 at 7:33 [id number], [id number] C, s/p treatment with SVR in 2011, now with chronic ischemic cardiomyopathy with LVAD insertion. Transjugular needle biopsyReceived in formalin labeled with patient's name and MRN are multiple tissue cores [...] evaluated Immunohistochemistry technical testing was performed at [facility]– [place], [facility]ology [facility] where it was developed and [...] the Clinical Laboratory Improvement Amendments of 1988 (CLIA-88) as qualified to perform high complexity clinical laboratory testing.IAN, TRANSCATHETER [id number] 18:09:00[place] [id number] ()LABS: [facility] [place] [address] [phone] (PH) [phone] (FAX)Attain pressuresSpecify Organ:- >liverReason for Exam:->abnormal liver imaging, liver fibrosisFINAL REPORT Transjugular liver biopsy, 04/09/2019. History: CHF, evaluation for abnormal liver function. Modality: Fluoroscopy. Sedation: Versed 1 mg and fentanyl 50 mcg was given intravenously for conscious sedation. Vital signs were monitored throughout the procedure by a nurse, and remained stable. Physician intra-service time was 30 min. Capital Equipment Specialist: Vandana. Foundry Worker Apprentice: None. Approach: Right internal jugular vein Estimated blood loss: < 5 cc. Specimen: 4 19-gauge core specimens placed within formalin and sent to pathology. Fluoroscopy Time: 4.4 min. Dose (Ka,r): 227 mGy. Technique: Informed written consent was [...] needle into the right atrium. A 4 [place]ian micropuncture sheath was placed. A 0.035 inch J-wire was placed through the micropuncture sheath and the sheath was exchanged for a 9 [place]ian sheath. A 5 [place]ian angled tip catheter was used to select the right hepatic vein. Venogram was performed. Pressures were obtained through the catheter with measurements as follows: wedged hepatic - 20 mmHg, free hepatic - 16, and right atrium - 14. A long metal reinforced 7 [place]ian sheath was placed through the 9 [place]ibian sheath into the right hepatic vein. A [...] vein and intrahepatic IVC. Impression: Successful, uncomplicated tra nsjugular liver biopsy, using fluoroscopic guidance and conscious sedation. Signed: Lalito RossMDReport Verified Date/Time: 04/09/2019 18:09:32 Reading Location: [place] [address] Angio Body Reading Room COMPREHENSIVE METABOLIC PANEL 2019-04-09 12:23:00 Test Item Value Reference Range Interpretation Comments TOTAL PROTEIN 6.7 gm/dL 6.0-8.3 (BEAKER) (test code = 770) ALBUMIN (BEAKER) 3.3 g/dL 3.5-5.0 L (test code = 1145) ALKALINE PHOSPHATASE 111 U/L 40-150 (BEAKER) (test code = 346) BILIRUBIN TOTAL 0.8 mg/dL 0.2-1.2 (BEAKER) (test code = 377) SODIUM (BEAKER) (test 139 meq/L 136-145 code = 381) POTASSIUM (BEAKER) 4.1 meq/L 3.5-5.1 (test code = 379) CHLORIDE (BEAKER) 105 meq/L 98-107 (test code = 382) CO2 (BEAKER) (test 30 meq/L 22-29 H code = 355) BLOOD UREA NITROGEN 20 mg/dL 7-21 (BEAKER) (test code = 354) CREATININE (BEAKER) 1.01 mg/dL 0.57-1.25 (test code = 358) GLUCOSE RANDOM 148 mg/dL 70-105 H (BEAKER) (test code = 652) CALCIUM (BEAKER) 8.4 mg/dL 8.4-10.2 (test code = 697) AST (SGOT) (BEAKER) 16 U/L 5-34 (test code = 353) ALT (SGPT) (BEAKER) 27 U/L 6-55 (test code = 347) EGFR (BEAKER) (test 76 mL/min/1.73 ESTIMA JENIFER GFR IS code = 1092) sq m NOT ACCURATE CREATININE CLEARANCE IN PREDICTING GLOMERULAR FILTRATION RATE . ESTIMATED GFR I S NOT APPLICABLE FOR DIALYSIS PATIEN TS. [id number] 12:13:00 Test Item Value Reference Range Interpretation Comments PARTIAL THROMBOPLASTIN TIME 31.3 seconds 22.5-36.0 (BEAKER) (test code = 760) PROTHROMBIN [id number] 12:12:00 Test Item Value Reference Range Interpretation Comments PROTIME (BEAKER) (test code = 14.7 seconds 11.7-14.7 759) INR (BEAKER) (test code = 370) 1.2 <=5.9 RECOMMENDED COUMADIN/WARFARIN INR THERAPY RANGESSTANDARD DOSE: 2.0 - 3.0 Includes: PROPHYLAXIS forvenous thrombosis, systemic embolization; TREATMENT for venous thrombosis and/or pulmonary embolus.HIGH RISK: Target INR is 2.5-3.5 for patients with mechanical heart valves.CBC W/PLT COUNT & AUTO DIFFERENTIAL 2019-04-09 12:04:00 Test Item Value Reference Range Interpretation Comments WHITE BLOOD CELL COUNT (BEAKER) 6.6 K/ L 3.5-10.5 (test code = 775) RED BLOOD CELL COUNT (BEAKER) 4.04 M/ L 4.63-6.08 L (test code = 761) HEMOGLOBIN (BEAKER) (test code = 12.1 GM/DL 13.7-17.5 L 410) HEMATOCRIT (BEAKER) (test code = 36.2 % 40.1-51.0 L 411) MEAN CORPUSCULAR VOLUME (BEAKER) 89.6 fL 79.0-92.2 (test code = 753) MEAN CORPUSCULAR HEMOGLOBIN 30.0 pg 25.7-32.2 (BEAKER) (test code = 751) MEAN CORPUSCULAR HEMOGLOBIN CONC 33.4 GM/DL 32.3-36.5 (BEAKER) (test code = 752) RED CELL DISTRIBUTION WIDTH 13.2 % 11.6-14.4 (BEAKER) (test code = 412) PLATELET COUNT (BEAKER) (test 114 K/CU MM 150-450 L code = 756) MEAN PLATELET VOLUME (BEAKER) 10.4 fL 9.4-12.4 (test code = 754) NUCLEATED RED BLOOD CELLS 0 /100 WBC 0-0 (BEAKER) (test code = 413) NEUTROPHILS RELATIVE PERCENT 64 % (BEAKER) (test code = 429) LYMPHOCYTES RELATIVE PERCENT 24 % (BEAKER) (test code = 430) MONOCYTES RELATIVE PERCENT 8 % (BEAKER) (test code = 431) EOSINOPHILS RELATIVE PERCENT 2 % (BEAKER) (test code = 432) BASOPHILS RELATIVE PERCENT 1 % (BEAKER) (test code = 437) NEUTROPHILS ABSOLUTE COUNT 4.21 K/ L 1.78-5.38 (BEAKER) (test code = 670) LYMPHOCYTES ABSOLUTE COUNT 1.58 K/ L 1.32-3.57 (BEAKER) (test code = 414) MONOCYTES ABSOLUTE COUNT (BEAKER) 0.52 K/ L 0.30-0.82 (test code = 415) EOSINOPHILS ABSOLUTE COUNT 0.16 K/ L 0.04-0.54 (BEAKER) (test code = 416) BASOPHILS ABSOLUTE COUNT (BEAKER) 0.08 K/ L 0.01-0.08 (test code = 417) IMMATURE GRANULOCYTES-RELATIVE 1 % 0-1 PERCENT (BEAKER) (test code = 2801) TSH/FREE T4 IF [id number] 11:07:00 Test Item Value Reference Range Interpretation Comments THYROID STIMULATING HORMONE 4.38 uIU/mL 0.35-4.94 (BEAKER) (test code = 772) PROTHROMBIN [id number] 10:59:00 Test Item Value Reference Range Interpretation Comments PROTIME (BEAKER) (test code = 20.3 seconds 11.7-14.7 H 759) INR (BEAKER) (test code = 370) 1.7 <=5.9 RECOMMENDED COUMADIN/WARFARIN INR THERAPY RANGESSTANDARD DOSE: 2.0 - 3.0 Includes: PROPHYLAXIS forvenous thrombosis, systemic embolization; TREATMENT for venous thrombosis and/or pulmonary embolus.HIGH RISK: Target INR is 2.5-3.5 for patients with mechanical heart valves.[id number] 10:49:00 Test Item Value Reference Range Interpretation Comments MAGNESIUM (BEAKER) (test code = 1.6 mg/dL 1.6-2.6 627) BASIC METABOLIC [id number] 10:49:00 Test Item Value Reference Range Interpretation Comments SODIUM (BEAKER) 138 meq/L 136-145 (test code = 381) POTASSIUM (BEAKER) 4.8 meq/L 3.5-5.1 (test code = 379) CHLORIDE (BEAKER) 106 meq/L 98-107 (test code = 382) CO2 (BEAKER) (test 26 meq/L 22-29 code = 355) BLOOD UREA NITROGEN 26 mg/dL 7-21 H (BEAKER) (test code = 354) CREATININE (BEAKER) 0.99 mg/dL 0.57-1.25 (test code = 358) GLUCOSE RANDOM 95 mg/dL 70-105 (BEAKER) (test code = 652) CALCIUM (BEAKER) 9.8 mg/dL 8.4-10.2 (test code = 697) EGFR (BEAKER) (test 78 mL/min/1.73 ESTIMA JENIFER GFR IS code = 1092) sq m NOT ACCURATE CREATININE CLEARANCE IN PREDICTING GLOMERULAR FILTRATION RATE . ESTIMATED GFR I S NOT APPLICABLE FOR DIALYSIS PATIEN TS. HEPATIC FUNCTION [id number] 10:49:00 Test Item Value Reference Range Interpretation Comments TOTAL PROTEIN (BEAKER) (test code = 7.5 gm/dL 6.0-8.3 770) ALBUMIN (BEAKER) (test code = 1145) 3.7 g/dL 3.5-5.0 BILIRUBIN TOTAL (BEAKER) (test code 0.8 mg/dL 0.2-1.2 = 377) BILIRUBIN DIRECT (BEAKER) (test 0.3 mg/dL 0.1-0.5 code = 706) ALKALINE PHOSPHATASE (BEAKER) (test 102 U/L 40-150 code = 346) AST (SGOT) (BEAKER) (test code = 36 U/L 5-34 H 353) ALT (SGPT) (BEAKER) (test code = 42 U/L 6-55 347) LACTATE DEHYDROGENASE (LDH)2019-01-17 10:49:00 Test Item Value Reference Range Interpretation Comments LACTATE DEHYDROGENASE (BEAKER) (test 297 U/L 125-220 H code = 635) IRON, TIBC, % SAT. (WITHOUT FERRITIN)2019-01-17 10:47:00 Test Item Value Reference Range Interpretation Comments IRON (BEAKER) (test code = 547) 104.0 ug/dL 40.0-160.0 TOTAL IRON BINDING CAPACITY 288 ug/dL 250-450 (BEAKER) (test code = 769) IRON % SATURATION (2) (BEAKER) 36 % 20-55 (test code = 2590) CBC W/PLT COUNT & AUTO [id number] 10:32:00 Test Item Value Reference Range Interpretation Comments WHITE BLOOD CELL COUNT (BEAKER) 6.5 K/ L 3.5-10.5 (test code = 775) RED BLOOD CELL COUNT (BEAKER) 5.00 M/ L 4.63-6.08 (test code = 761) HEMOGLOBIN (BEAKER) (test code = 14.8 GM/DL 13.7-17.5 410) HEMATOCRIT (BEAKER) (test code = 43.6 % 40.1-51.0 411) MEAN CORPUSCULAR VOLUME (BEAKER) 87.2 fL 79.0-92.2 (test code = 753) MEAN CORPUSCULAR HEMOGLOBIN 29.6 pg 25.7-32.2 (BEAKER) (test code = 751) MEAN CORPUSCULAR HEMOGLOBIN CONC 33.9 GM/DL 32.3-36.5 (BEAKER) (test code = 752) RED CELL DISTRIBUTION WIDTH 13.4 % 11.6-14.4 (BEAKER) (test code = 412) PLATELET COUNT (BEAKER) (test 145 K/CU MM 150-450 L code = 756) MEAN PLATELET VOLUME (BEAKER) 10.1 fL 9.4-12.4 (test code = 754) NUCLEATED RED BLOOD CELLS 0 /100 WBC 0-0 (BEAKER) (test code = 413) NEUTROPHILS RELATIVE PERCENT 61 % (BEAKER) (test code = 429) LYMPHOCYTES RELATIVE PERCENT 28 % (BEAKER) (test code = 430) MONOCYTES RELATIVE PERCENT 8 % (BEAKER) (test code = 431) EOSINOPHILS RELATIVE PERCENT 2 % (BEAKER) (test code = 432) BASOPHILS RELATIVE PERCENT 1 % (BEAKER) (test code = 437) NEUTROPHILS ABSOLUTE COUNT 3.91 K/ L 1.78-5.38 (BEAKER) (test code = 670) LYMPHOCYTES ABSOLUTE COUNT 1.80 K/ L 1.32-3.57 (BEAKER) (test code = 414) MONOCYTES ABSOLUTE COUNT (BEAKER) 0.51 K/ L 0.30-0.82 (test code = 415) EOSINOPHILS ABSOLUTE COUNT 0.13 K/ L 0.04-0.54 (BEAKER) (test code = 416) BASOPHILS ABSOLUTE COUNT (BEAKER) 0.08 K/ L 0.01-0.08 (test code = 417) IMMATURE GRANULOCYTES-RELATIVE 1 % 0-1 PERCENT (BEAKER) (test code = 2801) [id number] 11:15:00 Test Item Value Reference Range Interpretation Comments FERRITIN (BEAKER) (test code = 361) 493 ng/mL 5-275 H IRON, TIBC, % SAT. (WITHOUT FERRITIN)2018-11-01 10:55:00 Test Item Value Reference Range Interpretation Comments IRON (BEAKER) (test code = 547) 129.0 ug/dL 40.0-160.0 TOTAL IRON BINDING CAPACITY 268 ug/dL 250-450 (BEAKER) (test code = 769) IRON % SATURATION (2) (BEAKER) 48 % 20-55 (test code = 2590) [id number] 10:52:00 Test Item Value Reference Range Interpretation Comments MAGNESIUM (BEAKER) (test code = 1.8 mg/dL 1.6-2.6 627) BASIC METABOLIC [id number] 10:52:00 Test Item Value Reference Range Interpretation Comments SODIUM (BEAKER) 137 meq/L 136-145 (test code = 381) POTASSIUM (BEAKER) 4.6 meq/L 3.5-5.1 (test code = 379) CHLORIDE (BEAKER) 104 meq/L 98-107 (test code = 382) CO2 (BEAKER) (test 27 meq/L 22-29 code = 355) BLOOD UREA NITROGEN 21 mg/dL 7-21 (BEAKER) (test code = 354) CREATININE (BEAKER) 1.12 mg/dL 0.57-1.25 (test code = 358) GLUCOSE RANDOM 105 mg/dL 70-105 (BEAKER) (test code = 652) CALCIUM (BEAKER) 8.8 mg/dL 8.4-10.2 (test code = 697) EGFR (BEAKER) (test 68 mL/min/1.73 ESTIMA JENIFER GFR IS code = 1092) sq m NOT ACCURATE CREATININE CLEARANCE IN PREDICTING GLOMERULAR FILTRATION RATE . ESTIMATED GFR I S NOT APPLICABLE FOR DIALYSIS PATIEN TS. HEPATIC FUNCTION [id number] 10:52:00 Test Item Value Reference Range Interpretation Comments TOTAL PROTEIN (BEAKER) (test code = 7.1 gm/dL 6.0-8.3 770) ALBUMIN (BEAKER) (test code = 1145) 3.6 g/dL 3.5-5.0 BILIRUBIN TOTAL (BEAKER) (test code 1.1 mg/dL 0.2-1.2 = 377) BILIRUBIN DIRECT (BEAKER) (test 0.5 mg/dL 0.1-0.5 code = 706) ALKALINE PHOSPHATASE (BEAKER) (test 98 U/L 40-150 code = 346) AST (SGOT) (BEAKER) (test code = 30 U/L 5-34 353) ALT (SGPT) (BEAKER) (test code = 41 U/L 6-55 347) LACTATE DEHYDROGENASE (LDH)2018-11-01 10:52:00 Test Item Value Reference Range Interpretation Comments LACTATE DEHYDROGENASE (BEAKER) (test 275 U/L 125-220 H code = 635) PROTHROMBIN [id number] 10:37:00 Test Item Value Reference Range Interpretation Comments PROTIME (BEAKER) (test code = 21.1 seconds 11.7-14.7 H 759) INR (BEAKER) (test code = 370) 1.8 <=5.9 RECOMMENDED COUMADIN/WARFARIN INR THERAPY RANGESSTANDARD DOSE: 2.0 - 3.0 Includes: PROPHYLAXIS forvenous thrombosis, systemic embolization; TREATMENT for venous thrombosis and/or pulmonary embolus.HIGH RISK: Target INR is 2.5-3.5 for patients with mechanical heart valves.CBC W/PLT COUNT & AUTO DIFFERENTIAL 2018-11-01 10:31:00 Test Item Value Reference Range Interpretation Comments WHITE BLOOD CELL COUNT (BEAKER) 6.3 K/ L 3.5-10.5 (test code = 775) RED BLOOD CELL COUNT (BEAKER) 4.65 M/ L 4.63-6.08 (test code = 761) HEMOGLOBIN (BEAKER) (test code = 13.9 GM/DL 13.7-17.5 410) HEMATOCRIT (BEAKER) (test code = 40.4 % 40.1-51.0 411) MEAN CORPUSCULAR VOLUME (BEAKER) 86.9 fL 79.0-92.2 (test code = 753) MEAN CORPUSCULAR HEMOGLOBIN 29.9 pg 25.7-32.2 (BEAKER) (test code = 751) MEAN CORPUSCULAR HEMOGLOBIN CONC 34.4 GM/DL 32.3-36.5 (BEAKER) (test code = 752) RED CELL DISTRIBUTION WIDTH 13.2 % 11.6-14.4 (BEAKER) (test code = 412) PLATELET COUNT (BEAKER) (test 113 K/CU MM 150-450 L code = 756) MEAN PLATELET VOLUME (BEAKER) 10.1 fL 9.4-12.4 (test code = 754) NUCLEATED RED BLOOD CELLS 0 /100 WBC 0-0 (BEAKER) (test code = 413) NEUTROPHILS RELATIVE PERCENT 65 % (BEAKER) (test code = 429) LYMPHOCYTES RELATIVE PERCENT 24 % (BEAKER) (test code = 430) MONOCYTES RELATIVE PERCENT 9 % (BEAKER) (test code = 431) EOSINOPHILS RELATIVE PERCENT 2 % (BEAKER) (test code = 432) BASOPHILS RELATIVE PERCENT 1 % (BEAKER) (test code = 437) NEUTROPHILS ABSOLUTE COUNT 4.07 K/ L 1.78-5.38 (BEAKER) (test code = 670) LYMPHOCYTES ABSOLUTE COUNT 1.48 K/ L 1.32-3.57 (BEAKER) (test code = 414) MONOCYTES ABSOLUTE COUNT (BEAKER) 0.54 K/ L 0.30-0.82 (test code = 415) EOSINOPHILS ABSOLUTE COUNT 0.12 K/ L 0.04-0.54 (BEAKER) (test code = 416) BASOPHILS ABSOLUTE COUNT ([facility]) 0.05 K/ L 0.01-0.08 (test code = 417) IMMATURE GRANULOCYTES-RELATIVE 0 % 0-1 PERCENT (CONRADO) (test code = 2801) POCT-GLUCOSE [id number] 12:39:00 Test Item Value Reference Range Interpretation Comments POC-GLUCOSE METER 268 mg/dL 70-110 H TESTED AT [place] [address] ([facility]) (test code = [place] 15[address]) [address] HEMOGLOBIN [id number] 09:05:00 Test Item Value Reference Range Interpretation Comments HEMOGLOBIN A1C ([facility]UARD[facility]ANNER) (test code = 6.0 % 4.3-6.1 368) RAD, CHEST, 1 VIEW, NON [id number] 08:45:00[place] [phone] (PH)LABS: [facility] [id number] [place] [address] [phone] (PH) [phone] (FAX)Reason for exam:->LVADFINAL REPORT HISTORY : LVAD. Comparison: 11/21/2017 Comment: Single portable view of the chest was obtained. The cardiac silhouette size is enlarged. LVAD and left-sided multileadICD are in place. No pneumothorax or pleural effusion is seen. No lytic or blastic abnormalities areappreciated. Some fixation hardware is seen in the lower cervical spine. The patient is status post sternotomy. Signed: Ric Bass Verified Date/Time: 09/12/2018 08:45:58 Reading Location: [facility] Diagnostic Imaging Reading Room - [place] [address] POCT- GLUCOSE [id number] 07:56:00 Test Item Value Reference Range Interpretation Comments POC-GLUCOSE METER 178 mg/dL 70-[address] [facility] [address] ([facility]) (test code = [place] [address] [facility] 1538) [address] PROTHROMBIN [id number] 03:25:00 Test Item Value Reference Range Interpretation Comments PROTIME (CONRADO) (test code = 18.2 seconds 11.7-14.7 H 759) INR (BEAKER) (test code = 370) 1.5 <=5.9 RECOMMENDED COUMADIN/WARFARIN INR THERAPY RANGESSTANDARD DOSE: 2.0 - 3.0 Includes: PROPHYLAXIS forvenous thrombosis, systemic embolization; TREATMENT for venous thrombosis and/or pulmonary embolus.HIGH RISK: Target INR is 2.5-3.5 for patients with mechanical heart valves.[id number] 03:13:00 Test Item Value Reference Range Interpretation Comments PHOSPHORUS (BEAKER) (test code = 2.4 mg/dL 2.3-4.7 604) [id number] 03:13:00 Test Item Value Reference Range Interpretation Comments MAGNESIUM (BEAKER) (test code = 2.0 mg/dL 1.6-2.6 627) BASIC METABOLIC [id number] 03:13:00 Test Item Value Reference Range Interpretation Comments SODIUM (BEAKER) 141 meq/L 136-145 (test code = 381) POTASSIUM (BEAKER) 4.2 meq/L 3.5-5.1 (test code = 379) CHLORIDE (BEAKER) 108 meq/L 98-107 H (test code = 382) CO2 (BEAKER) (test 28 meq/L 22-29 code = 355) BLOOD UREA NITROGEN 28 mg/dL 7-21 H (BEAKER) (test code = 354) CREATININE (BEAKER) 1.04 mg/dL 0.57-1.25 (test code = 358) GLUCOSE RANDOM 209 mg/dL 70-105 H (BEAKER) (test code = 652) CALCIUM (BEAKER) 8.9 mg/dL 8.4-10.2 (test code = 697) EGFR (BEAKER) (test 74 mL/min/1.73 ESTIMA JENIFER GFR IS code = 1092) sq m NOT ACCURATE CREATININE CLEARANCE IN PREDICTING GLOMERULAR FILTRATION RATE . ESTIMATED GFR I S NOT APPLICABLE FOR DIALYSIS PATIEN TS. HEPATIC FUNCTION [id number] 03:13:00 Test Item Value Reference Range Interpretation Comments TOTAL PROTEIN (BEAKER) (test code = 6.6 gm/dL 6.0-8.3 770) ALBUMIN (BEAKER) (test code = 1145) 3.3 g/dL 3.5-5.0 L BILIRUBIN TOTAL (BEAKER) (test code 0.6 mg/dL 0.2-1.2 = 377) BILIRUBIN DIRECT (BEAKER) (test 0.3 mg/dL 0.1-0.5 code = 706) ALKALINE PHOSPHATASE (BEAKER) (test 102 U/L 40-150 code = 346) AST (SGOT) (BEAKER) (test code = 31 U/L 5-34 353) ALT (SGPT) (BEAKER) (test code = 50 U/L 6-55 347) LACTATE DEHYDROGENASE (LDH)2018-09-12 03:13:00 Test Item Value Reference Range Interpretation Comments LACTATE DEHYDROGENASE (BEAKER) (test 257 U/L 125-220 H code = 635) LACTIC ACID, VENOUS, WHOLE [id number] 03:03:00 Test Item Value Reference Range Interpretation Comments LACTATE BLOOD VENOUS 0.9 mmol/L 0.5-2.2 Specime n slightly (2) (BEAKER) (test hemolyzed code = 2872) Effective 03/22/2016: Units/Reference Range ChangeNew: 0.5-2.2 mmol/L Previous: 5-20 mg/dLCBC W/PLT COUNT & AUTO [id number] 02:41:00 Test Item Value Reference Range Interpretation Comments WHITE BLOOD CELL COUNT (BEAKER) 8.0 K/ L 3.5-10.5 (test code = 775) RED BLOOD CELL COUNT (BEAKER) 4.31 M/ L 4.63-6.08 L (test code = 761) HEMOGLOBIN (BEAKER) (test code = 13.1 GM/DL 13.7-17.5 L 410) HEMATOCRIT (BEAKER) (test code = 38.6 % 40.1-51.0 L 411) MEAN CORPUSCULAR VOLUME (BEAKER) 89.6 fL 79.0-92.2 (test code = 753) MEAN CORPUSCULAR HEMOGLOBIN 30.4 pg 25.7-32.2 (BEAKER) (test code = 751) MEAN CORPUSCULAR HEMOGLOBIN CONC 33.9 GM/DL 32.3-36.5 (BEAKER) (test code = 752) RED CELL DISTRIBUTION WIDTH 13.3 % 11.6-14.4 (BEAKER) (test code = 412) PLATELET COUNT (BEAKER) (test 119 K/CU MM 150-450 L code = 756) MEAN PLATELET VOLUME (BEAKER) 10.1 fL 9.4-12.4 (test code = 754) NUCLEATED RED BLOOD CELLS 0 /100 WBC 0-0 (BEAKER) (test code = 413) NEUTROPHILS RELATIVE PERCENT 67 % (BEAKER) (test code = 429) LYMPHOCYTES RELATIVE PERCENT 22 % (BEAKER) (test code = 430) MONOCYTES RELATIVE PERCENT 8 % (BEAKER) (test code = 431) EOSINOPHILS RELATIVE PERCENT 2 % (BEAKER) (test code = 432) BASOPHILS RELATIVE PERCENT 1 % (BEAKER) (test code = 437) NEUTROPHILS ABSOLUTE COUNT 5.32 K/ L 1.78-5.38 (BEAKER) (test code = 670) LYMPHOCYTES ABSOLUTE COUNT 1.73 K/ L 1.32-3.57 (BEAKER) (test code = 414) MONOCYTES ABSOLUTE COUNT (BEAKER) 0.63 K/ L 0.30-0.82 (test code = 415) EOSINOPHILS ABSOLUTE COUNT 0.17 K/ L 0.04-0.54 (BEAKER) (test code = 416) BASOPHILS ABSOLUTE COUNT (BEAKER) 0.07 K/ L 0.01-0.08 (test code = 417) IMMATURE GRANULOCYTES-RELATIVE 0 % 0-1 PERCENT (BEAKER) (test code = 6509) POCT-GLUCOSE [id number] 21:39:00 Test Item Value Reference Range Interpretation Comments POC-GLUCOSE METER 177 mg/dL 70-[address] [facility] (BEAKER) (test code = [facility] [address] TSH/FREE T4 IF [id number] 19:50:00 Test Item Value Reference Range Interpretation Comments THYROID STIMULATING HORMONE 3.30 uIU/mL 0.35-4.94 (BEAKER) (test code = 772) VITAMIN B12 AND [id number] 19:50:00 Test Item Value Reference Range Interpretation Comments VITAMIN B12 (BEAKER) (test code = 528 pg/mL 213-221 104) FOLATE (BEAKER) (test code = 362) 14.8 ng/mL >=7.0 CT, BRAIN, WITHOUT [id number] 19:41:00[place] [phone] (PH)LABS: [facility] [id number] [place] [address] [phone] () [phone] (FAX)Reason for exam:->Dizziness for hours, evaluate for strokeWhat is the patient's sedation requirement?->No SedationFINAL REPORT CT head without contrast INDICATION: Dizziness TECHNIQUE: Axial noncontrast CT images through [...] The calvarium is intact. IMPRESSION: No acute i ntracranial hemorrhage or mass effect. Chronic appearing microvascular and involutional changes. Stable left mastoidectomy changes. If there is persistent concern for acute abnormality, MRI is advised.Signed: Blaire Marsh Verified Date/Time: 09/11/2018 19:41:46 Reading Location: [facility] Radiology Reading Room 07:41 [id number] 19:19:00 Test Item Value Reference Range Interpretation Comments MAGNESIUM (BEAKER) (test code = 2.1 mg/dL 1.6-2.6 627) BASIC METABOLIC [id number] 19:19:00 Test Item Value Reference Range Interpretation Comments SODIUM (BEAKER) 141 meq/L 136-145 (test code = 381) POTASSIUM (BEAKER) 4.7 meq/L 3.5-5.1 (test code = 379) CHLORIDE (BEAKER) 108 meq/L 98-107 H (test code = 382) CO2 (BEAKER) (test 28 meq/L 22-29 code = 355) BLOOD UREA NITROGEN 28 mg/dL 7-21 H (BEAKER) (test code = 354) CREATININE (BEAKER) 0.97 mg/dL 0.57-1.25 (test code = 358) GLUCOSE RANDOM 130 mg/dL 70-105 H (BEAKER) (test code = 652) CALCIUM (BEAKER) 9.1 mg/dL 8.4-10.2 (test code = 697) EGFR (BEAKER) (test 80 mL/min/1.73 ESTIMA JENIFER GFR IS code = 1092) sq m NOT ACCURATE CREATININE CLEARANCE IN PREDICTING GLOMERULAR FILTRATION RATE . ESTIMATED GFR I S NOT APPLICABLE FOR DIALYSIS PATIEN TS. HEPATIC FUNCTION [id number] 19:19:00 Test Item Value Reference Range Interpretation Comments TOTAL PROTEIN (BEAKER) (test code = 7.3 gm/dL 6.0-8.3 770) ALBUMIN (BEAKER) (test code = 1145) 3.6 g/dL 3.5-5.0 BILIRUBIN TOTAL (BEAKER) (test code 0.8 mg/dL 0.2-1.2 = 377) BILIRUBIN DIRECT (BEAKER) (test 0.4 mg/dL 0.1-0.5 code = 706) ALKALINE PHOSPHATASE (BEAKER) (test 114 U/L 40-150 code = 346) AST (SGOT) (BEAKER) (test code = 33 U/L 5-34 353) ALT (SGPT) (BEAKER) (test code = 53 U/L 6-55 347) PROTHROMBIN [id number] 19:09:00 Test Item Value Reference Range Interpretation Comments PROTIME (BEAKER) (test code = 17.9 seconds 11.7-14.7 H 759) INR (BEAKER) (test code = 370) 1.5 <=5.9 RECOMMENDED COUMADIN/WARFARIN INR THERAPY RANGESSTANDARD DOSE: 2.0 - 3.0 Includes: PROPHYLAXIS forvenous thrombosis, systemic embolization; TREATMENT for venous thrombosis and/or pulmonary embolus.HIGH RISK: Target INR is 2.5-3.5 for patients with mechanical heart valves.CBC W/PLT COUNT & AUTO DIFFERENTIAL 2018-09-11 19:00:00 Test Item Value Reference Range Interpretation Comments WHITE BLOOD CELL COUNT (BEAKER) 7.8 K/ L 3.5-10.5 (test code = 775) RED BLOOD CELL COUNT (BEAKER) 4.69 M/ L 4.63-6.08 (test code = 761) HEMOGLOBIN (BEAKER) (test code = 14.2 GM/DL 13.7-17.5 410) HEMATOCRIT (BEAKER) (test code = 41.9 % 40.1-51.0 411) MEAN CORPUSCULAR VOLUME (BEAKER) 89.3 fL 79.0-92.2 (test code = 753) MEAN CORPUSCULAR HEMOGLOBIN 30.3 pg 25.7-32.2 (BEAKER) (test code = 751) MEAN CORPUSCULAR HEMOGLOBIN CONC 33.9 GM/DL 32.3-36.5 (BEAKER) (test code = 752) RED CELL DISTRIBUTION WIDTH 13.5 % 11.6-14.4 (BEAKER) (test code = 412) PLATELET COUNT (BEAKER) (test 140 K/CU MM 150-450 L code = 756) MEAN PLATELET VOLUME (BEAKER) 10.3 fL 9.4-12.4 (test code = 754) NUCLEATED RED BLOOD CELLS 0 /100 WBC 0-0 (BEAKER) (test code = 413) NEUTROPHILS RELATIVE PERCENT 69 % (BEAKER) (test code = 429) LYMPHOCYTES RELATIVE PERCENT 22 % (BEAKER) (test code = 430) MONOCYTES RELATIVE PERCENT 7 % (BEAKER) (test code = 431) EOSINOPHILS RELATIVE PERCENT 1 % (BEAKER) (test code = 432) BASOPHILS RELATIVE PERCENT 1 % (BEAKER) (test code = 437) NEUTROPHILS ABSOLUTE COUNT 5.33 K/ L 1.78-5.38 (BEAKER) (test code = 670) LYMPHOCYTES ABSOLUTE COUNT 1.70 K/ L 1.32-3.57 (BEAKER) (test code = 414) MONOCYTES ABSOLUTE COUNT (BEAKER) 0.52 K/ L 0.30-0.82 (test code = 415) EOSINOPHILS ABSOLUTE COUNT 0.09 K/ L 0.04-0.54 (BEAKER) (test code = 416) BASOPHILS ABSOLUTE COUNT (BEAKER) 0.07 K/ L 0.01-0.08 (test code = 417) IMMATURE GRANULOCYTES-RELATIVE 1 % 0-1 PERCENT (BEAKER) (test code = 2801) POCT-GLUCOSE [id number] 17:34:00 Test Item Value Reference Range Interpretation Comments POC-GLUCOSE METER 141 mg/dL 70-[address] [facility] [address] (BEAKER) (test code = [place] [address]) [address] LIPID [id number] 10:35:00 Test Item Value Reference Range Interpretation Comments TRIGLYCERIDES (BEAKER) (test code = 221 mg/dL 540) CHOLESTEROL (BEAKER) (test code = 161 mg/dL 631) HDL CHOLESTEROL (BEAKER) (test code 34 mg/dL = 976) LDL CHOLESTEROL CALCULATED (BEAKER) 83 mg/dL (test code = 633) Triglyceride Reference Range: Low Risk <150 Borderline 150-199 High Risk 200-499 Very High Risk >=500Cholesterol Reference Range: Low Risk <200 Borderline 200-239 High Risk >240HDL Cholesterol Reference Range: Low Risk >=60 High Risk <40LDL Cholesterol Reference Range: Optimal <100 Near Optimal 100-129 Borderline 130-159 High 160-189 Very High >=[id number] 08:24:00 Test Item Value Reference Range Interpretation Comments MAGNESIUM (BEAKER) (test code = 2.2 mg/dL 1.6-2.6 627) BASIC METABOLIC [id number] 08:24:00 Test Item Value Reference Range Interpretation Comments SODIUM (BEAKER) 135 meq/L 136-145 L (test code = 381) POTASSIUM (BEAKER) 5.4 meq/L 3.5-5.1 H (test code = 379) CHLORIDE (BEAKER) 101 meq/L 98-107 (test code = 382) CO2 (BEAKER) (test 28 meq/L 22-29 code = 355) BLOOD UREA NITROGEN 36 mg/dL 7-21 H (BEAKER) (test code = 354) CREATININE (BEAKER) 1.50 mg/dL 0.57-1.25 H (test code = 358) GLUCOSE RANDOM 255 mg/dL 70-105 H (BEAKER) (test code = 652) CALCIUM (BEAKER) 9.4 mg/dL 8.4-10.2 (test code = 697) EGFR (BEAKER) (test 48 mL/min/1.73 ESTIMA JENIFER GFR IS code = 1092) sq m NOT ACCURATE CREATININE CLEARANCE IN PREDICTING GLOMERULAR FILTRATION RATE . ESTIMATED GFR I S NOT APPLICABLE FOR DIALYSIS PATIEN TS. HEPATIC FUNCTION [id number] 08:24:00 Test Item Value Reference Range Interpretation Comments TOTAL PROTEIN (BEAKER) (test code = 7.8 gm/dL 6.0-8.3 770) ALBUMIN (BEAKER) (test code = 1145) 3.8 g/dL 3.5-5.0 BILIRUBIN TOTAL (BEAKER) (test code 0.6 mg/dL 0.2-1.2 = 377) BILIRUBIN DIRECT (BEAKER) (test 0.3 mg/dL 0.1-0.5 code = 706) ALKALINE PHOSPHATASE (BEAKER) (test 129 U/L 40-150 code = 346) AST (SGOT) (BEAKER) (test code = 35 U/L 5-34 H 353) ALT (SGPT) (BEAKER) (test code = 47 U/L 6-55 347) LACTATE DEHYDROGENASE (LDH)2018-08-23 08:24:00 Test Item Value Reference Range Interpretation Comments LACTATE DEHYDROGENASE (BEAKER) (test 316 U/L 125-220 H code = 635) PROTHROMBIN [id number] 08:13:00 Test Item Value Reference Range Interpretation Comments PROTIME (BEAKER) (test code = 20.4 seconds 11.7-14.7 H 759) INR (BEAKER) (test code = 370) 1.8 <=5.9 RECOMMENDED COUMADIN/WARFARIN INR THERAPY RANGESSTANDARD DOSE: 2.0 - 3.0 Includes: PROPHYLAXIS forvenous thrombosis, systemic embolization; TREATMENT for venous thrombosis and/or pulmonary embolus.HIGH RISK: Target INR is 2.5-3.5 for patients with mechanical heart valves.CBC W/PLT COUNT & AUTO DIFFERENTIAL 2018-08-23 08:04:00 Test Item Value Reference Range Interpretation Comments WHITE BLOOD CELL COUNT (BEAKER) 7.7 K/ L 3.5-10.5 (test code = 775) RED BLOOD CELL COUNT (BEAKER) 4.61 M/ L 4.63-6.08 L (test code = 761) HEMOGLOBIN (BEAKER) (test code = 14.2 GM/DL 13.7-17.5 410) HEMATOCRIT (BEAKER) (test code = 41.7 % 40.1-51.0 411) MEAN CORPUSCULAR VOLUME (BEAKER) 90.5 fL 79.0-92.2 (test code = 753) MEAN CORPUSCULAR HEMOGLOBIN 30.8 pg 25.7-32.2 (BEAKER) (test code = 751) MEAN CORPUSCULAR HEMOGLOBIN CONC 34.1 GM/DL 32.3-36.5 (BEAKER) (test code = 752) RED CELL DISTRIBUTION WIDTH 13.1 % 11.6-14.4 (BEAKER) (test code = 412) PLATELET COUNT (BEAKER) (test 166 K/CU MM 150-450 code = 756) MEAN PLATELET VOLUME (BEAKER) 10.3 fL 9.4-12.4 (test code = 754) NUCLEATED RED BLOOD CELLS 0 /100 WBC 0-0 (BEAKER) (test code = 413) NEUTROPHILS RELATIVE PERCENT 63 % (BEAKER) (test code = 429) LYMPHOCYTES RELATIVE PERCENT 25 % (BEAKER) (test code = 430) MONOCYTES RELATIVE PERCENT 9 % (BEAKER) (test code = 431) EOSINOPHILS RELATIVE PERCENT 2 % (BEAKER) (test code = 432) BASOPHILS RELATIVE PERCENT 1 % (BEAKER) (test code = 437) NEUTROPHILS ABSOLUTE COUNT 4.84 K/ L 1.78-5.38 (BEAKER) (test code = 670) LYMPHOCYTES ABSOLUTE COUNT 1.95 K/ L 1.32-3.57 (BEAKER) (test code = 414) MONOCYTES ABSOLUTE COUNT (BEAKER) 0.65 K/ L 0.30-0.82 (test code = 415) EOSINOPHILS ABSOLUTE COUNT 0.14 K/ L 0.04-0.54 (BEAKER) (test code = 416) BASOPHILS ABSOLUTE COUNT (BEAKER) 0.07 K/ L 0.01-0.08 (test code = 417) IMMATURE GRANULOCYTES-RELATIVE 1 % 0-1 PERCENT (BEAKER) (test code = 2801) [id number] 12:54:00 Test Item Value Reference Range Interpretation Comments FERRITIN (BEAKER) (test code = 361) 475 ng/mL 5-275 H [id number] 12:33:00 Test Item Value Reference Range Interpretation Comments PREALBUMIN (BEAKER) (test code = 16 mg/dL 14-45 586) IRON, TIBC, % SAT. (WITHOUT FERRITIN)2018-06-21 12:33:00 Test Item Value Reference Range Interpretation Comments IRON (BEAKER) (test code = 547) 100 ug/dL 40-160 TOTAL IRON BINDING CAPACITY 289 ug/dL 250-450 (BEAKER) (test code = 769) IRON % SATURATION (2) (BEAKER) 35 % 20-55 (test code = 2590) [id number] 12:23:00 Test Item Value Reference Range Interpretation Comments MAGNESIUM (BEAKER) (test code = 1.7 mg/dL 1.6-2.6 627) BASIC METABOLIC [id number] 12:23:00 Test Item Value Reference Range Interpretation Comments SODIUM (BEAKER) 142 meq/L 136-145 (test code = 381) POTASSIUM (BEAKER) 3.7 meq/L 3.5-5.1 (test code = 379) CHLORIDE (BEAKER) 107 meq/L 98-107 (test code = 382) CO2 (BEAKER) (test 29 meq/L 22-29 code = 355) BLOOD UREA NITROGEN 27 mg/dL 7-21 H (BEAKER) (test code = 354) CREATININE (BEAKER) 1.07 mg/dL 0.57-1.25 (test code = 358) GLUCOSE RANDOM 141 mg/dL 70-105 H (BEAKER) (test code = 652) CALCIUM (BEAKER) 9.0 mg/dL 8.4-10.2 (test code = 697) EGFR (BEAKER) (test 71 mL/min/1.73 ESTIMA JENIFER GFR IS code = 1092) sq m NOT ACCURATE CREATININE CLEARANCE IN PREDICTING GLOMERULAR FILTRATION RATE . ESTIMATED GFR I S NOT APPLICABLE FOR DIALYSIS PATIEN TS. HEPATIC FUNCTION [id number] 12:23:00 Test Item Value Reference Range Interpretation Comments TOTAL PROTEIN (BEAKER) (test code = 7.5 gm/dL 6.0-8.3 770) ALBUMIN (BEAKER) (test code = 1145) 3.7 g/dL 3.5-5.0 BILIRUBIN TOTAL (BEAKER) (test code 0.8 mg/dL 0.2-1.2 = 377) BILIRUBIN DIRECT (BEAKER) (test 0.4 mg/dL 0.1-0.5 code = 706) ALKALINE PHOSPHATASE (BEAKER) (test 131 U/L 40-150 code = 346) AST (SGOT) (BEAKER) (test code = 23 U/L 5-34 353) ALT (SGPT) (BEAKER) (test code = 34 U/L 6-55 347) LACTATE DEHYDROGENASE (LDH)2018-06-21 12:23:00 Test Item Value Reference Range Interpretation Comments LACTATE DEHYDROGENASE (BEAKER) (test 308 U/L 125-220 H code = 635) PROTHROMBIN TIME/[id number] 11:59:00 Test Item Value Reference Range Interpretation Comments PROTIME (BEAKER) (test code = 23.1 seconds 11.7-14.7 H 759) INR (BEAKER) (test code = 370) 2.1 <=5.9 RECOMMENDED COUMADIN/WARFARIN INR THERAPY RANGESSTANDARD DOSE: 2.0 - 3.0 Includes: PROPHYLAXIS forvenous thrombosis, systemic embolization; TREATMENT for venous thrombosis and/or pulmonary embolus.HIGH RISK: Target INR is 2.5-3.5 for patients with mechanical heart valves.CBC W/PLT COUNT & AUTO DIFFERENTIAL 2018-06-21 11:48:00 Test Item Value Reference Range Interpretation Comments WHITE BLOOD CELL COUNT (BEAKER) 6.7 K/ L 3.5-10.5 (test code = 775) RED BLOOD CELL COUNT (BEAKER) 4.38 M/ L 4.63-6.08 L (test code = 761) HEMOGLOBIN (BEAKER) (test code = 13.5 GM/DL 13.7-17.5 L 410) HEMATOCRIT (BEAKER) (test code = 39.7 % 40.1-51.0 L 411) MEAN CORPUSCULAR VOLUME (BEAKER) 90.6 fL 79.0-92.2 (test code = 753) MEAN CORPUSCULAR HEMOGLOBIN 30.8 pg 25.7-32.2 (BEAKER) (test code = 751) MEAN CORPUSCULAR HEMOGLOBIN CONC 34.0 GM/DL 32.3-36.5 (BEAKER) (test code = 752) RED CELL DISTRIBUTION WIDTH 13.8 % 11.6-14.4 (BEAKER) (test code = 412) PLATELET COUNT (BEAKER) (test 138 K/CU MM 150-450 L code = 756) MEAN PLATELET VOLUME (BEAKER) 10.2 fL 9.4-12.4 (test code = 754) NUCLEATED RED BLOOD CELLS 0 /100 WBC 0-0 (BEAKER) (test code = 413) NEUTROPHILS RELATIVE PERCENT 64 % (BEAKER) (test code = 429) LYMPHOCYTES RELATIVE PERCENT 24 % (BEAKER) (test code = 430) MONOCYTES RELATIVE PERCENT 9 % (BEAKER) (test code = 431) EOSINOPHILS RELATIVE PERCENT 2 % (BEAKER) (test code = 432) BASOPHILS RELATIVE PERCENT 1 % (BEAKER) (test code = 437) NEUTROPHILS ABSOLUTE COUNT 4.32 K/ L 1.78-5.38 (BEAKER) (test code = 670) LYMPHOCYTES ABSOLUTE COUNT 1.61 K/ L 1.32-3.57 (BEAKER) (test code = 414) MONOCYTES ABSOLUTE COUNT (BEAKER) 0.57 K/ L 0.30-0.82 (test code = 415) EOSINOPHILS ABSOLUTE COUNT 0.14 K/ L 0.04-0.54 (BEAKER) (test code = 416) BASOPHILS ABSOLUTE COUNT (BEAKER) 0.06 K/ L 0.01-0.08 (test code = 417) IMMATURE GRANULOCYTES-RELATIVE 1 % 0-1 PERCENT (BEAKER) (test code = 2801) [id number] 11:01:00 Test Item Value Reference Range Interpretation Comments FERRITIN (BEAKER) (test code = 361) 514 ng/mL 5-275 H IRON, TIBC, % SAT. (WITHOUT FERRITIN)2018-04-19 10:47:00 Test Item Value Reference Range Interpretation Comments IRON (BEAKER) (test code = 547) 135 ug/dL 40-160 TOTAL IRON BINDING CAPACITY 284 ug/dL 250-450 (BEAKER) (test code = 769) IRON % SATURATION (2) (BEAKER) 48 % 20-55 (test code = 2590) [id number] 10:46:00 Test Item Value Reference Range Interpretation Comments MAGNESIUM (BEAKER) (test code = 2.0 mg/dL 1.6-2.6 627) BASIC METABOLIC [id number] 10:46:00 Test Item Value Reference Range Interpretation Comments SODIUM (BEAKER) 142 meq/L 136-145 (test code = 381) POTASSIUM (BEAKER) 4.4 meq/L 3.5-5.1 (test code = 379) CHLORIDE (BEAKER) 105 meq/L 98-107 (test code = 382) CO2 (BEAKER) (test 28 meq/L 22-29 code = 355) BLOOD UREA NITROGEN 33 mg/dL 7-21 H (BEAKER) (test code = 354) CREATININE (BEAKER) 1.34 mg/dL 0.57-1.25 H (test code = 358) GLUCOSE RANDOM 76 mg/dL 70-105 (BEAKER) (test code = 652) CALCIUM (BEAKER) 9.3 mg/dL 8.4-10.2 (test code = 697) EGFR (BEAKER) (test 55 mL/min/1.73 ESTIMA JENIFER GFR IS code = 1092) sq m NOT ACCURATE CREATININE CLEARANCE IN PREDICTING GLOMERULAR FILTRATION RATE . ESTIMATED GFR I S NOT APPLICABLE FOR DIALYSIS PATIEN TS. HEPATIC FUNCTION [id number] 10:46:00 Test Item Value Reference Range Interpretation Comments TOTAL PROTEIN (BEAKER) (test code = 7.3 gm/dL 6.0-8.3 770) ALBUMIN (BEAKER) (test code = 1145) 3.7 g/dL 3.5-5.0 BILIRUBIN TOTAL (BEAKER) (test code 0.9 mg/dL 0.2-1.2 = 377) BILIRUBIN DIRECT (BEAKER) (test 0.4 mg/dL 0.1-0.5 code = 706) ALKALINE PHOSPHATASE (BEAKER) (test 134 U/L 40-150 code = 346) AST (SGOT) (BEAKER) (test code = 26 U/L 5-34 353) ALT (SGPT) (BEAKER) (test code = 39 U/L 6-55 347) LACTATE DEHYDROGENASE (LDH)2018-04-19 10:46:00 Test Item Value Reference Range Interpretation Comments LACTATE DEHYDROGENASE (BEAKER) (test 290 U/L 125-220 H code = 635) PROTHROMBIN [id number] 10:24:00 Test Item Value Reference Range Interpretation Comments PROTIME (BEAKER) (test code = 22.1 seconds 11.7-14.7 H 759) INR (BEAKER) (test code = 370) 1.9 <=5.9 RECOMMENDED COUMADIN/WARFARIN INR THERAPY RANGESSTANDARD DOSE: 2.0 - 3.0 Includes: PROPHYLAXIS forvenous thrombosis, systemic embolization; TREATMENT for venous thrombosis and/or pulmonary embolus.HIGH RISK: Target INR is 2.5-3.5 for patients with mechanical heart valves.CBC W/PLT COUNT & AUTO DIFFERENTIAL 2018-04-19 10:18:00 Test Item Value Reference Range Interpretation Comments WHITE BLOOD CELL COUNT (BEAKER) 6.7 K/ L 3.5-10.5 (test code = 775) RED BLOOD CELL COUNT (BEAKER) 4.70 M/ L 4.63-6.08 (test code = 761) HEMOGLOBIN (BEAKER) (test code = 13.8 GM/DL 13.7-17.5 410) HEMATOCRIT (BEAKER) (test code = 40.6 % 40.1-51.0 411) MEAN CORPUSCULAR VOLUME (BEAKER) 86.4 fL 79.0-92.2 (test code = 753) MEAN CORPUSCULAR HEMOGLOBIN 29.4 pg 25.7-32.2 (BEAKER) (test code = 751) MEAN CORPUSCULAR HEMOGLOBIN CONC 34.0 GM/DL 32.3-36.5 (BEAKER) (test code = 752) RED CELL DISTRIBUTION WIDTH 13.6 % 11.6-14.4 (BEAKER) (test code = 412) PLATELET COUNT (BEAKER) (test 151 K/CU MM 150-450 code = 756) MEAN PLATELET VOLUME (BEAKER) 10.3 fL 9.4-12.4 (test code = 754) NUCLEATED RED BLOOD CELLS 0 /100 WBC 0-0 (BEAKER) (test code = 413) NEUTROPHILS RELATIVE PERCENT 63 % (BEAKER) (test code = 429) LYMPHOCYTES RELATIVE PERCENT 26 % (BEAKER) (test code = 430) MONOCYTES RELATIVE PERCENT 7 % (BEAKER) (test code = 431) EOSINOPHILS RELATIVE PERCENT 2 % (BEAKER) (test code = 432) BASOPHILS RELATIVE PERCENT 1 % (BEAKER) (test code = 437) NEUTROPHILS ABSOLUTE COUNT 4.22 K/ L 1.78-5.38 (BEAKER) (test code = 670) LYMPHOCYTES ABSOLUTE COUNT 1.75 K/ L 1.32-3.57 (BEAKER) (test code = 414) MONOCYTES ABSOLUTE COUNT (BEAKER) 0.50 K/ L 0.30-0.82 (test code = 415) EOSINOPHILS ABSOLUTE COUNT 0.11 K/ L 0.04-0.54 (BEAKER) (test code = 416) BASOPHILS ABSOLUTE COUNT (BEAKER) 0.07 K/ L 0.01-0.08 (test code = 417) IMMATURE GRANULOCYTES-RELATIVE 1 % 0-1 PERCENT (BEAKER) (test code = 2801) [id number] 10:56:00 Test Item Value Reference Range Interpretation Comments FERRITIN (BEAKER) (test code = 361) 236 ng/mL 5-275 [id number] 10:48:00 Test Item Value Reference Range Interpretation Comments MAGNESIUM (BEAKER) (test code = 1.8 mg/dL 1.6-2.6 627) BASIC METABOLIC [id number] 10:48:00 Test Item Value Reference Range Interpretation Comments SODIUM (BEAKER) 140 meq/L 136-145 (test code = 381) POTASSIUM (BEAKER) 3.8 meq/L 3.5-5.1 (test code = 379) CHLORIDE (BEAKER) 102 meq/L 98-107 (test code = 382) CO2 (BEAKER) (test 28 meq/L 22-29 code = 355) BLOOD UREA NITROGEN 26 mg/dL 7-21 H (BEAKER) (test code = 354) CREATININE (BEAKER) 1.12 mg/dL 0.57-1.25 (test code = 358) GLUCOSE RANDOM 137 mg/dL 70-105 H (BEAKER) (test code = 652) CALCIUM (BEAKER) 8.9 mg/dL 8.4-10.2 (test code = 697) EGFR (BEAKER) (test 68 mL/min/1.73 ESTIMA JENIFER GFR IS code = 1092) sq m NOT ACCURATE CREATININE CLEARANCE IN PREDICTING GLOMERULAR FILTRATION RATE . ESTIMATED GFR I S NOT APPLICABLE FOR DIALYSIS PATIEN TS. HEPATIC FUNCTION [id number] 10:48:00 Test Item Value Reference Range Interpretation Comments TOTAL PROTEIN (BEAKER) (test code = 7.5 gm/dL 6.0-8.3 770) ALBUMIN (BEAKER) (test code = 1145) 3.7 g/dL 3.5-5.0 BILIRUBIN TOTAL (BEAKER) (test code 0.6 mg/dL 0.2-1.2 = 377) BILIRUBIN DIRECT (BEAKER) (test 0.3 mg/dL 0.1-0.5 code = 706) ALKALINE PHOSPHATASE (BEAKER) (test 142 U/L 40-150 code = 346) AST (SGOT) (BEAKER) (test code = 25 U/L 5-34 353) ALT (SGPT) (BEAKER) (test code = 46 U/L 6-55 347) LACTATE DEHYDROGENASE (LDH)2018-03-01 10:48:00 Test Item Value Reference Range Interpretation Comments LACTATE DEHYDROGENASE (BEAKER) (test 296 U/L 125-220 H code = 635) [id number] 10:34:00 Test Item Value Reference Range Interpretation Comments TRANSFERRIN (BEAKER) (test code = 248 mg/dL 174-382 541) [id number] 10:34:00 Test Item Value Reference Range Interpretation Comments PREALBUMIN (BEAKER) (test code = 18 mg/dL 14-45 586) IRON, TIBC, % SAT. (WITHOUT FERRITIN)2018-03-01 10:34:00 Test Item Value Reference Range Interpretation Comments IRON (BEAKER) (test code = 547) 90 ug/dL 40-160 TOTAL IRON BINDING CAPACITY 310 ug/dL 250-450 (BEAKER) (test code = 769) IRON % SATURATION (2) (BEAKER) 29 % 20-55 (test code = 2590) PLASMA FREE [id number] 10:28:00 Test Item Value Reference Range Interpretation Comments HEMOGLOBIN PLASMA (BEAKER) (test 80.0 mg/dl 0.0-30.0 H code = 1054) PROTHROMBIN [id number] 10:22:00 Test Item Value Reference Range Interpretation Comments PROTIME (BEAKER) (test code = 24.3 seconds 11.7-14.7 H 759) INR (BEAKER) (test code = 370) 2.2 <=5.9 RECOMMENDED COUMADIN/WARFARIN INR THERAPY RANGESSTANDARD DOSE: 2.0 - 3.0 Includes: PROPHYLAXIS forvenous thrombosis, systemic embolization; TREATMENT for venous thrombosis and/or pulmonary embolus.HIGH RISK: Target INR is 2.5-3.5 for patients with mechanical heart valves.CBC W/PLT COUNT & AUTO DIFFERENTIAL 2018-03-01 10:20:00 Test Item Value Reference Range Interpretation Comments WHITE BLOOD CELL COUNT (BEAKER) 6.7 K/ L 3.5-10.5 (test code = 775) RED BLOOD CELL COUNT (BEAKER) 4.91 M/ L 4.63-6.08 (test code = 761) HEMOGLOBIN (BEAKER) (test code = 13.8 GM/DL 13.7-17.5 410) HEMATOCRIT (BEAKER) (test code = 41.3 % 40.1-51.0 411) MEAN CORPUSCULAR VOLUME (BEAKER) 84.1 fL 79.0-92.2 (test code = 753) MEAN CORPUSCULAR HEMOGLOBIN 28.1 pg 25.7-32.2 (BEAKER) (test code = 751) MEAN CORPUSCULAR HEMOGLOBIN CONC 33.4 GM/DL 32.3-36.5 (BEAKER) (test code = 752) RED CELL DISTRIBUTION WIDTH 15.3 % 11.6-14.4 H (BEAKER) (test code = 412) PLATELET COUNT (BEAKER) (test 166 K/CU MM 150-450 code = 756) MEAN PLATELET VOLUME (BEAKER) 10.1 fL 9.4-12.4 (test code = 754) NUCLEATED RED BLOOD CELLS 0 /100 WBC 0-0 (BEAKER) (test code = 413) NEUTROPHILS RELATIVE PERCENT 62 % (BEAKER) (test code = 429) LYMPHOCYTES RELATIVE PERCENT 28 % (BEAKER) (test code = 430) MONOCYTES RELATIVE PERCENT 7 % (BEAKER) (test code = 431) EOSINOPHILS RELATIVE PERCENT 2 % (BEAKER) (test code = 432) BASOPHILS RELATIVE PERCENT 1 % (BEAKER) (test code = 437) NEUTROPHILS ABSOLUTE COUNT 4.12 K/ L 1.78-5.38 (BEAKER) (test code = 670) LYMPHOCYTES ABSOLUTE COUNT 1.91 K/ L 1.32-3.57 (BEAKER) (test code = 414) MONOCYTES ABSOLUTE COUNT (BEAKER) 0.46 K/ L 0.30-0.82 (test code = 415) EOSINOPHILS ABSOLUTE COUNT 0.13 K/ L 0.04-0.54 (BEAKER) (test code = 416) BASOPHILS ABSOLUTE COUNT (BEAKER) 0.07 K/ L 0.01-0.08 (test code = 417) IMMATURE GRANULOCYTES-RELATIVE 0 % 0-1 PERCENT (BEAKER) (test code = 2801) [id number] 10:33:00 Test Item Value Reference Range Interpretation Comments MAGNESIUM (BEAKER) (test code = 1.7 mg/dL 1.6-2.6 627) BASIC METABOLIC [id number] 10:33:00 Test Item Value Reference Range Interpretation Comments SODIUM (BEAKER) 139 meq/L 136-145 (test code = 381) POTASSIUM (BEAKER) 4.4 meq/L 3.5-5.1 (test code = 379) CHLORIDE (BEAKER) 98 meq/L 98-107 (test code = 382) CO2 (BEAKER) (test 34 meq/L 22-29 H code = 355) BLOOD UREA NITROGEN 20 mg/dL 7-21 (BEAKER) (test code = 354) CREATININE (BEAKER) 1.22 mg/dL 0.57-1.25 (test code = 358) GLUCOSE RANDOM 267 mg/dL 70-105 H (BEAKER) (test code = 652) CALCIUM (BEAKER) 9.1 mg/dL 8.4-10.2 (test code = 697) EGFR (BEAKER) (test 62 mL/min/1.73 ESTIMA JENIFER GFR IS code = 1092) sq m NOT ACCURATE CREATININE CLEARANCE IN PREDICTING GLOMERULAR FILTRATION RATE . ESTIMATED GFR I S NOT APPLICABLE FOR DIALYSIS PATIEN TS. HEPATIC FUNCTION [id number] 10:33:00 Test Item Value Reference Range Interpretation Comments TOTAL PROTEIN (BEAKER) (test code = 7.6 gm/dL 6.0-8.3 770) ALBUMIN (BEAKER) (test code = 1145) 3.6 g/dL 3.5-5.0 BILIRUBIN TOTAL (BEAKER) (test code 0.8 mg/dL 0.2-1.2 = 377) BILIRUBIN DIRECT (BEAKER) (test 0.4 mg/dL 0.1-0.5 code = 706) ALKALINE PHOSPHATASE (BEAKER) (test 142 U/L 40-150 code = 346) AST (SGOT) (BEAKER) (test code = 29 U/L 5-34 353) ALT (SGPT) (BEAKER) (test code = 37 U/L 6-55 347) LACTATE DEHYDROGENASE (LDH)2018-01-11 10:33:00 Test Item Value Reference Range Interpretation Comments LACTATE DEHYDROGENASE (BEAKER) (test 308 U/L 125-220 H code = 635) [id number] 10:29:00 Test Item Value Reference Range Interpretation Comments PREALBUMIN (BEAKER) (test code = 16 mg/dL 14-45 586) PLASMA FREE [id number] 10:10:00 Test Item Value Reference Range Interpretation Comments HEMOGLOBIN PLASMA (BEAKER) (test 30.0 mg/dl 0.0-30.0 code = 1054) PROTHROMBIN [id number] 09:45:00 Test Item Value Reference Range Interpretation Comments PROTIME (BEAKER) (test code = 25.0 seconds 11.7-14.7 H 759) INR (BEAKER) (test code = 370) 2.3 <=5.9 RECOMMENDED COUMADIN/WARFARIN INR THERAPY RANGESSTANDARD DOSE: 2.0 - 3.0 Includes: PROPHYLAXIS forvenous thrombosis, systemic embolization; TREATMENT for venous thrombosis and/or pulmonary embolus.HIGH RISK: Target INR is 2.5-3.5 for patients with mechanical heart valves.CBC W/PLT COUNT & AUTO DIFFERENTIAL 2018-01-11 09:35:00 Test Item Value Reference Range Interpretation Comments WHITE BLOOD CELL COUNT (BEAKER) 5.9 K/ L 3.5-10.5 (test code = 775) RED BLOOD CELL COUNT (BEAKER) 4.80 M/ L 4.63-6.08 (test code = 761) HEMOGLOBIN (BEAKER) (test code = 13.0 GM/DL 13.7-17.5 L 410) HEMATOCRIT (BEAKER) (test code = 40.9 % 40.1-51.0 411) MEAN CORPUSCULAR VOLUME (BEAKER) 85.2 fL 79.0-92.2 (test code = 753) MEAN CORPUSCULAR HEMOGLOBIN 27.1 pg 25.7-32.2 (BEAKER) (test code = 751) MEAN CORPUSCULAR HEMOGLOBIN CONC 31.8 GM/DL 32.3-36.5 L (BEAKER) (test code = 752) RED CELL DISTRIBUTION WIDTH 18.1 % 11.6-14.4 H (BEAKER) (test code = 412) PLATELET COUNT (BEAKER) (test 144 K/CU MM 150-450 L code = 756) MEAN PLATELET VOLUME (BEAKER) 10.1 fL 9.4-12.4 (test code = 754) NUCLEATED RED BLOOD CELLS 0 /100 WBC 0-0 (BEAKER) (test code = 413) NEUTROPHILS RELATIVE PERCENT 67 % (BEAKER) (test code = 429) LYMPHOCYTES RELATIVE PERCENT 22 % (BEAKER) (test code = 430) MONOCYTES RELATIVE PERCENT 8 % (BEAKER) (test code = 431) EOSINOPHILS RELATIVE PERCENT 2 % (BEAKER) (test code = 432) BASOPHILS RELATIVE PERCENT 1 % (BEAKER) (test code = 437) NEUTROPHILS ABSOLUTE COUNT 3.97 K/ L 1.78-5.38 (BEAKER) (test code = 670) LYMPHOCYTES ABSOLUTE COUNT 1.32 K/ L 1.32-3.57 (BEAKER) (test code = 414) MONOCYTES ABSOLUTE COUNT (BEAKER) 0.45 K/ L 0.30-0.82 (test code = 415) EOSINOPHILS ABSOLUTE COUNT 0.11 K/ L 0.04-0.54 (BEAKER) (test code = 416) BASOPHILS ABSOLUTE COUNT (BEAKER) 0.05 K/ L 0.01-0.08 (test code = 417) IMMATURE GRANULOCYTES-RELATIVE 0 % 0-1 PERCENT (BEAKER) (test code = 2801) LACTATE DEHYDROGENASE (LDH)2017-12-01 15:16:00 Test Item Value Reference Range Interpretation Comments LACTATE DEHYDROGENASE (BEAKER) (test 269 U/L 125-220 H code = 635) POCT-GLUCOSE [id number] 12:13:00 Test Item Value Reference Range Interpretation Comments POC-GLUCOSE METER 270 mg/dL 70-[address] [facility] [address] (BEAKER) (test code = [place] 1538) [id number] POCT-GLUCOSE [id number] 08:13:00 Test Item Value Reference Range Interpretation Comments POC-GLUCOSE METER 188 mg/dL 70-[address] [facility] 67[address] (BEAKER) (test code = [place] 1538) [id number] BASIC METABOLIC [id number] 07:20:00 Test Item Value Reference Range Interpretation Comments SODIUM (BEAKER) 136 meq/L 136-145 (test code = 381) POTASSIUM (BEAKER) 4.3 meq/L 3.5-5.1 (test code = 379) CHLORIDE (BEAKER) 102 meq/L 98-107 (test code = 382) CO2 (BEAKER) (test 28 meq/L 22-29 code = 355) BLOOD UREA NITROGEN 21 mg/dL 7-21 ([facility]) (test code = 354) CREATININE (AKER) 0.99 mg/dL 0.57-1.25 (test code = 358) GLUCOSE RANDOM 172 mg/dL 70-105 H ([facility]) (test code = 652) CALCIUM (AKER) 8.7 mg/dL 8.4-10.2 (test code = 697) EGFR ([facility]) (test 78 mL/min/1.73 ESTIMA JENIFER GFR IS code = 1092) sq m NOT ACCURATE CREATININE CLEARANCE IN PREDICTING GLOMERULAR FILTRATION RATE . ESTIMATED GFR I S NOT APPLICABLE FOR DIALYSIS PATIEN TS. [id number] 06:57:00 Test Item Value Reference Range Interpretation Comments PARTIAL THROMBOPLASTIN TIME 75.9 seconds 22.5-36.0 H (STACIE) (test code = 760) PROTHROMBIN [id number] 06:56:00 Test Item Value Reference Range Interpretation Comments PROTIME ([facility]) (test code = 20.9 seconds 11.7-14.7 H 759) INR ([facility]) (test code = 370) 1.8 <=5.9 RECOMMENDED COUMADIN/WARFARIN INR THERAPY RANGESSTANDARD DOSE: 2.0 - 3.0 Includes: PROPHYLAXIS forvenous thrombosis, systemic embolization; TREATMENT for venous thrombosis and/or pulmonary embolus.HIGH RISK: Target INR is 2.5-3.5 for patients with mechanical heart valves.POCT-GLUCOSE [id number] 21:26:00 Test Item Value Reference Range Interpretation Comments POC-GLUCOSE METER 201 mg/dL 70-110 H TESTED AT [place] [address] ([facility]) (test code = [place] [facility] 1538) [id number] POCT-GLUCOSE [id number] 17:22:00 Test Item Value Reference Range Interpretation Comments POC-GLUCOSE METER 342 mg/dL 70-110 H Notified Rafa Ramires MD/TESTED ([facility]) (test code = AT [facility] [address]) [facility] [address] POCT-GLUCOSE [id number] 09:17:00 Test Item Value Reference Range Interpretation Comments POC-GLUCOSE METER 280 mg/dL 70-110 H TESTED AT [place] [address] (BEAKER) (test code = [place] 1538) [id number] BASIC METABOLIC [id number] 07:13:00 Test Item Value Reference Range Interpretation Comments SODIUM (BEAKER) 139 meq/L 136-145 (test code = 381) POTASSIUM (BEAKER) 4.1 meq/L 3.5-5.1 (test code = 379) CHLORIDE (BEAKER) 105 meq/L 98-107 (test code = 382) CO2 (BEAKER) (test 27 meq/L 22-29 code = 355) BLOOD UREA NITROGEN 22 mg/dL 7-21 H (BEAKER) (test code = 354) CREATININE (BEAKER) 1.01 mg/dL 0.57-1.25 (test code = 358) GLUCOSE RANDOM 301 mg/dL 70-105 H (BEAKER) (test code = 652) CALCIUM (BEAKER) 8.9 mg/dL 8.4-10.2 (test code = 697) EGFR (BEAKER) (test 77 mL/min/1.73 ESTIMA JENIFER GFR IS code = 1092) sq m NOT ACCURATE CREATININE CLEARANCE IN PREDICTING GLOMERULAR FILTRATION RATE . ESTIMATED GFR I S NOT APPLICABLE FOR DIALYSIS PATIEN TS. [id number] 06:59:00 Test Item Value Reference Range Interpretation Comments PARTIAL THROMBOPLASTIN TIME 70.0 seconds 22.5-36.0 H (BEAKER) (test code = 760) PROTHROMBIN [id number] 06:58:00 Test Item Value Reference Range Interpretation Comments PROTIME (BEAKER) (test code = 19.4 seconds 11.7-14.7 H 759) INR (BEAKER) (test code = 370) 1.6 <=5.9 RECOMMENDED COUMADIN/WARFARIN INR THERAPY RANGESSTANDARD DOSE: 2.0 - 3.0 Includes: PROPHYLAXIS forvenous thrombosis, systemic embolization; TREATMENT for venous thrombosis and/or pulmonary embolus.HIGH RISK: Target INR is 2.5-3.5 for patients with mechanical heart valves.CBC (HEMOGRAM ONLY)2017-11-30 06:58:00 Test Item Value Reference Range Interpretation Comments WHITE BLOOD CELL COUNT (BEAKER) 7.1 K/ L 3.5-10.5 (test code = 775) RED BLOOD CELL COUNT (BEAKER) 4.15 M/ L 4.63-6.08 L (test code = 761) HEMOGLOBIN (BEAKER) (test code = 10.1 GM/DL 13.7-17.5 L 410) HEMATOCRIT (BEAKER) (test code = 33.8 % 40.1-51.0 L 411) MEAN CORPUSCULAR VOLUME (BEAKER) 81.4 fL 79.0-92.2 (test code = 753) MEAN CORPUSCULAR HEMOGLOBIN 24.3 pg 25.7-32.2 L (BEAKER) (test code = 751) MEAN CORPUSCULAR HEMOGLOBIN CONC 29.9 GM/DL 32.3-36.5 L (BEAKER) (test code = 752) RED CELL DISTRIBUTION WIDTH 18.7 % 11.6-14.4 H (BEAKER) (test code = 412) PLATELET COUNT (AKER) (test 146 K/CU MM 150-450 L code = 756) MEAN PLATELET VOLUME (BEAKER) 10.3 fL 9.4-12.4 (test code = 754) NUCLEATED RED BLOOD CELLS 0 /100 WBC 0-0 (AKER) (test code = 413) POCT-GLUCOSE [id number] 22:52:00 Test Item Value Reference Range Interpretation Comments POC-GLUCOSE METER 267 mg/dL 70-110 H TESTED AT [place] [address] ([facility]) (test code = [place] [facility] 1538) [id number] POCT-GLUCOSE [id number] 17:28:00 Test Item Value Reference Range Interpretation Comments POC-GLUCOSE METER 236 mg/dL 70-110 H TESTED AT [place] [address] ([facility]) (test code = [place]ULA Craig [facility] 1538) [id number] POCT-GLUCOSE [id number] 12:11:00 Test Item Value Reference Range Interpretation Comments POC-GLUCOSE METER 365 mg/dL 70-110 H Notified R Ike BARCLAY/TESTED ([facility]) (test code = AT [address] 1538) [facility] [id number] 0 CBC (HEMOGRAM ONLY)2017-11-29 08:00:00 Test Item Value Reference Range Interpretation Comments WHITE BLOOD CELL COUNT (AKER) 7.3 K/ L 3.5-10.5 (test code = 775) RED BLOOD CELL COUNT (BEAKER) 4.18 M/ L 4.63-6.08 L (test code = 761) HEMOGLOBIN (BEAKER) (test code = 9.9 GM/DL 13.7-17.5 L 410) HEMATOCRIT (BEAKER) (test code = 33.8 % 40.1-51.0 L 411) MEAN CORPUSCULAR VOLUME (BEAKER) 80.9 fL 79.0-92.2 (test code = 753) MEAN CORPUSCULAR HEMOGLOBIN 23.7 pg 25.7-32.2 L (BEAKER) (test code = 751) MEAN CORPUSCULAR HEMOGLOBIN CONC 29.3 GM/DL 32.3-36.5 L (BEAKER) (test code = 752) RED CELL DISTRIBUTION WIDTH 18.3 % 11.6-14.4 H (BEAKER) (test code = 412) PLATELET COUNT (BEAKER) (test 163 K/CU MM 150-450 code = 756) MEAN PLATELET VOLUME (BEAKER) 10.3 fL 9.4-12.4 (test code = 754) NUCLEATED RED BLOOD CELLS 1 /100 WBC 0-0 H (BEAKER) (test code = 413) POCT-GLUCOSE [id number] 07:56:00 Test Item Value Reference Range Interpretation Comments POC-GLUCOSE METER 176 mg/dL 70-[address] [facility] 6720 ([facility]) (test code = [place] 1538) [id number] BASIC METABOLIC [id number] 05:49:00 Test Item Value Reference Range Interpretation Comments SODIUM (BEAKER) 140 meq/L 136-145 (test code = 381) POTASSIUM (BEAKER) 4.1 meq/L 3.5-5.1 (test code = 379) CHLORIDE (BEAKER) 103 meq/L 98-107 (test code = 382) CO2 (BEAKER) (test 29 meq/L 22-29 code = 355) BLOOD UREA NITROGEN 22 mg/dL 7-21 H (BEAKER) (test code = 354) CREATININE (BEAKER) 1.12 mg/dL 0.57-1.25 (test code = 358) GLUCOSE RANDOM 202 mg/dL 70-105 H (BEAKER) (test code = 652) CALCIUM (BEAKER) 8.5 mg/dL 8.4-10.2 (test code = 697) EGFR (BEAKER) (test 68 mL/min/1.73 ESTIMA JENIFER GFR IS code = 1092) sq m NOT ACCURATE CREATININE CLEARANCE IN PREDICTING GLOMERULAR FILTRATION RATE . ESTIMATED GFR I S NOT APPLICABLE FOR DIALYSIS PATIEN YOHANA. [id number] 05:34:00 Test Item Value Reference Range Interpretation Comments PARTIAL THROMBOPLASTIN TIME 90.9 seconds 22.5-36.0 H ([facility]) (test code = 760) PROTHROMBIN [id number] 05:32:00 Test Item Value Reference Range Interpretation Comments PROTIME ([facility]) (test code = 19.8 seconds 11.7-14.7 H 759) INR ([facility]) (test code = 370) 1.7 <=5.9 RECOMMENDED COUMADIN/WARFARIN INR THERAPY RANGESSTANDARD DOSE: 2.0 - 3.0 Includes: PROPHYLAXIS forvenous thrombosis, systemic embolization; TREATMENT for venous thrombosis and/or pulmonary embolus.HIGH RISK: Target INR is 2.5-3.5 for patients with mechanical heart valves.POCT-GLUCOSE [id number] 21:35:00 Test Item Value Reference Range Interpretation Comments POC-GLUCOSE METER 218 mg/dL 70-110 H TESTED AT [place] [address] ([facility]) (test code = [place]ULA Craig [facility] 1538) [id number] POCT-GLUCOSE [id number] 16:50:00 Test Item Value Reference Range Interpretation Comments POC-GLUCOSE METER 199 mg/dL 70-110 H TESTED AT [place] [address] ([facility]) (test code = CHULA Craig [facility] 1538) [id number] POCT-GLUCOSE [id number] 12:06:00 Test Item Value Reference Range Interpretation Comments POC-GLUCOSE METER 208 mg/dL 70-110 H TESTED AT [place] [address] ([facility]) (test code = CHULA Craig [facility] 1538) [id number] POCT-GLUCOSE [id number] 07:57:00 Test Item Value Reference Range Interpretation Comments POC-GLUCOSE METER 216 mg/dL 70-110 H TESTED AT [place] [address] ([facility]) (test code = CHULA Craig [facility] 1538) [id number] CBC (HEMOGRAM ONLY)2017-11-28 06:50:00 Test Item Value Reference Range Interpretation Comments WHITE BLOOD CELL COUNT ([facility]) 7.2 K/ L 3.5-10.5 (test code = 775) RED BLOOD CELL COUNT (BEAKER) 3.98 M/ L 4.63-6.08 L (test code = 761) HEMOGLOBIN (BEAKER) (test code = 9.6 GM/DL 13.7-17.5 L 410) HEMATOCRIT (BEAKER) (test code = 31.5 % 40.1-51.0 L 411) MEAN CORPUSCULAR VOLUME (BEAKER) 79.1 fL 79.0-92.2 (test code = 753) MEAN CORPUSCULAR HEMOGLOBIN 24.1 pg 25.7-32.2 L (BEAKER) (test code = 751) MEAN CORPUSCULAR HEMOGLOBIN CONC 30.5 GM/DL 32.3-36.5 L (BEAKER) (test code = 752) RED CELL DISTRIBUTION WIDTH 16.8 % 11.6-14.4 H (BEAKER) (test code = 412) PLATELET COUNT (BEAKER) (test 176 K/CU MM 150-450 code = 756) MEAN PLATELET VOLUME (BEAKER) 10.5 fL 9.4-12.4 (test code = 754) NUCLEATED RED BLOOD CELLS 1 /100 WBC 0-0 H (BEAKER) (test code = 413) BASIC METABOLIC [id number] 05:44:00 Test Item Value Reference Range Interpretation Comments SODIUM (BEAKER) 140 meq/L 136-145 (test code = 381) POTASSIUM (BEAKER) 3.5 meq/L 3.5-5.1 (test code = 379) CHLORIDE (BEAKER) 103 meq/L 98-107 (test code = 382) CO2 (BEAKER) (test 28 meq/L 22-29 code = 355) BLOOD UREA NITROGEN 20 mg/dL 7-21 (BEAKER) (test code = 354) CREATININE (BEAKER) 0.98 mg/dL 0.57-1.25 (test code = 358) GLUCOSE RANDOM 239 mg/dL 70-105 H (BEAKER) (test code = 652) CALCIUM (BEAKER) 8.2 mg/dL 8.4-10.2 L (test code = 697) EGFR (BEAKER) (test 79 mL/min/1.73 ESTIMA JENIFER GFR IS code = 1092) sq m NOT ACCURATE CREATININE CLEARANCE IN PREDICTING GLOMERULAR FILTRATION RATE . ESTIMATED GFR I S NOT APPLICABLE FOR DIALYSIS PATIEN TS. [id number] 05:42:00 Test Item Value Reference Range Interpretation Comments PARTIAL THROMBOPLASTIN TIME 88.4 seconds 22.5-36.0 H (BEAKER) (test code = 760) PROTHROMBIN [id number] 05:41:00 Test Item Value Reference Range Interpretation Comments PROTIME (BEAKER) (test code = 17.8 seconds 11.7-14.7 H 759) INR (BEAKER) (test code = 370) 1.5 <=5.9 RECOMMENDED COUMADIN/WARFARIN INR THERAPY RANGESSTANDARD DOSE: 2.0 - 3.0 Includes: PROPHYLAXIS forvenous thrombosis, systemic embolization; TREATMENT for venous thrombosis and/or pulmonary embolus.HIGH RISK: Target INR is 2.5-3.5 for patients with mechanical heart valves.[id number] 23:10:00 Test Item Value Reference Range Interpretation Comments PARTIAL THROMBOPLASTIN TIME 72.0 seconds 22.5-36.0 H (AKER) (test code = 760) POCT-GLUCOSE [id number] 21:24:00 Test Item Value Reference Range Interpretation Comments POC-GLUCOSE METER 244 mg/dL 70-[address] [facility] ([facility]) (test code = [place] 1538) [id number] POCT-GLUCOSE [id number] 17:33:00 Test Item Value Reference Range Interpretation Comments POC-GLUCOSE METER 119 mg/dL 70-[address] [facility] ([facility]) (test code = [place] 1538) [address] [id number] 16:23:00 Test Item Value Reference Range Interpretation Comments PARTIAL THROMBOPLASTIN TIME 54.0 seconds 22.5-36.0 H (AKER) (test code = 760) [id number] 13:58:00 Test Item Value Reference Range Interpretation Comments PARTIAL THROMBOPLASTIN TIME 122.2 seconds 22.5-36.0 H (AKER) (test code = 760) CBC (HEMOGRAM ONLY)2017-11-27 13:51:00 Test Item Value Reference Range Interpretation Comments WHITE BLOOD CELL COUNT (BEAKER) 7.1 K/ L 3.5-10.5 (test code = 775) RED BLOOD CELL COUNT (BEAKER) 4.00 M/ L 4.63-6.08 L (test code = 761) HEMOGLOBIN (BEAKER) (test code = 9.4 GM/DL 13.7-17.5 L 410) HEMATOCRIT (BEAKER) (test code = 31.2 % 40.1-51.0 L 411) MEAN CORPUSCULAR VOLUME (BEAKER) 78.0 fL 79.0-92.2 L (test code = 753) MEAN CORPUSCULAR HEMOGLOBIN 23.5 pg 25.7-32.2 L (BEAKER) (test code = 751) MEAN CORPUSCULAR HEMOGLOBIN CONC 30.1 GM/DL 32.3-36.5 L (BEAKER) (test code = 752) RED CELL DISTRIBUTION WIDTH 16.2 % 11.6-14.4 H (BEAKER) (test code = 412) PLATELET COUNT (BEAKER) (test 176 K/CU MM 150-450 code = 756) MEAN PLATELET VOLUME (BEAKER) 10.6 fL 9.4-12.4 (test code = 754) NUCLEATED RED BLOOD CELLS 1 /100 WBC 0-0 H (BEAKER) (test code = 413) POCT-GLUCOSE [id number] 12:29:00 Test Item Value Reference Range Interpretation Comments POC-GLUCOSE METER 224 mg/dL 70-110 H TESTED AT [place] [address] ([facility]) (test code = [place] 1538) [address] HEMOGLOBIN [id number] 10:32:00 Test Item Value Reference Range Interpretation Comments HEMOGLOBIN A1C (BEAKER) (test code = 7.0 % 4.3-6.1 H 368) POCT-GLUCOSE [id number] 08:37:00 Test Item Value Reference Range Interpretation Comments POC-GLUCOSE METER 262 mg/dL 70-110 H TESTED AT [place] [address] ([facility]) (test code = [place] 1538) [address] BASIC METABOLIC [id number] 06:37:00 Test Item Value Reference Range Interpretation Comments SODIUM (BEAKER) 139 meq/L 136-145 (test code = 381) POTASSIUM (BEAKER) 3.8 meq/L 3.5-5.1 (test code = 379) CHLORIDE (BEAKER) 103 meq/L 98-107 (test code = 382) CO2 (BEAKER) (test 27 meq/L 22-29 code = 355) BLOOD UREA NITROGEN 24 mg/dL 7-21 H (BEAKER) (test code = 354) CREATININE (BEAKER) 1.28 mg/dL 0.57-1.25 H (test code = 358) GLUCOSE RANDOM 280 mg/dL 70-105 H (BEAKER) (test code = 652) CALCIUM (BEAKER) 8.6 mg/dL 8.4-10.2 (test code = 697) EGFR (BEAKER) (test 58 mL/min/1.73 ESTIMA JENIFER GFR IS code = 1092) sq m NOT ACCURATE CREATININE CLEARANCE IN PREDICTING GLOMERULAR FILTRATION RATE . ESTIMATED GFR I S NOT APPLICABLE FOR DIALYSIS PATIEN TS. [id number] 06:07:00 Test Item Value Reference Range Interpretation Comments PARTIAL THROMBOPLASTIN TIME 110.2 seconds 22.5-36.0 H (BEAKER) (test code = 760) PROTHROMBIN [id number] 05:42:00 Test Item Value Reference Range Interpretation Comments PROTIME (BEAKER) (test code = 15.4 seconds 11.7-14.7 H 759) INR (BEAKER) (test code = 370) 1.2 <=5.9 RECOMMENDED COUMADIN/WARFARIN INR THERAPY RANGESSTANDARD DOSE: 2.0 - 3.0 Includes: PROPHYLAXIS forvenous thrombosis, systemic embolization; TREATMENT for venous thrombosis and/or pulmonary embolus.HIGH RISK: Target INR is 2.5-3.5 for patients with mechanical heart valves.[id number] 23:05:00 Test Item Value Reference Range Interpretation Comments PARTIAL THROMBOPLASTIN TIME 90.2 seconds 22.5-36.0 H (BEAKER) (test code = 760) POCT-GLUCOSE [id number] 21:36:00 Test Item Value Reference Range Interpretation Comments POC-GLUCOSE METER 165 mg/dL 70-[address] [facility] [address] ([facility]) (test code = [place] 1538) [address] [id number] 17:31:00 Test Item Value Reference Range Interpretation Comments PARTIAL THROMBOPLASTIN TIME 81.4 seconds 22.5-36.0 H ([employer]) (test code = 760) POCT-GLUCOSE [id number] 16:47:00 Test Item Value Reference Range Interpretation Comments POC-GLUCOSE METER 101 mg/dL 70-[address] [facility] (BEAKER) (test code = [place] 1538) [address] POCT-GLUCOSE [id number] 11:52:00 Test Item Value Reference Range Interpretation Comments POC-GLUCOSE METER 97 mg/dL 70-[address] [facility] [address] (BEAKER) (test code = [place] [address] 1538) [id number] 08:26:00 Test Item Value Reference Range Interpretation Comments LIPASE (BEAKER) (test code = 749) 31 U/L 8-78 BASIC METABOLIC [id number] 08:26:00 Test Item Value Reference Range Interpretation Comments SODIUM (BEAKER) 138 meq/L 136-145 (test code = 381) POTASSIUM (BEAKER) 3.5 meq/L 3.5-5.1 (test code = 379) CHLORIDE (BEAKER) 102 meq/L 98-107 (test code = 382) CO2 (BEAKER) (test 27 meq/L 22-29 code = 355) BLOOD UREA NITROGEN 18 mg/dL 7-21 (BEAKER) (test code = 354) CREATININE (BEAKER) 0.97 mg/dL 0.57-1.25 (test code = 358) GLUCOSE RANDOM 176 mg/dL 70-105 H (BEAKER) (test code = 652) CALCIUM (BEAKER) 8.8 mg/dL 8.4-10.2 (test code = 697) EGFR (BEAKER) (test 80 mL/min/1.73 ESTIMA JENIFER GFR IS code = 1092) sq m NOT ACCURATE CREATININE CLEARANCE IN PREDICTING GLOMERULAR FILTRATION RATE . ESTIMATED GFR I S NOT APPLICABLE FOR DIALYSIS PATIEN TS. HEPATIC FUNCTION [id number] 08:26:00 Test Item Value Reference Range Interpretation Comments TOTAL PROTEIN (BEAKER) (test code = 6.7 gm/dL 6.0-8.3 770) ALBUMIN (BEAKER) (test code = 1145) 3.2 g/dL 3.5-5.0 L BILIRUBIN TOTAL (BEAKER) (test code 0.6 mg/dL 0.2-1.2 = 377) BILIRUBIN DIRECT (BEAKER) (test 0.2 mg/dL 0.1-0.5 code = 706) ALKALINE PHOSPHATASE (BEAKER) (test 95 U/L 40-150 code = 346) AST (SGOT) (BEAKER) (test code = 22 U/L 5-34 353) ALT (SGPT) (BEAKER) (test code = 23 U/L 6-55 347) POCT-GLUCOSE [id number] 08:11:00 Test Item Value Reference Range Interpretation Comments POC-GLUCOSE METER 198 mg/dL 70-[address] [facility] [address] ([facility]) (test code = [place] 1538) [id number] 07:29:00 Test Item Value Reference Range Interpretation Comments PARTIAL THROMBOPLASTIN TIME 102.0 seconds 22.5-36.0 H (AKER) (test code = 760) PROTHROMBIN TIME/[id number] 07:23:00 Test Item Value Reference Range Interpretation Comments PROTIME ([facility]) (test code = 15.4 seconds 11.7-14.7 H 759) INR ([facility]) (test code = 370) 1.2 <=5.9 RECOMMENDED COUMADIN/WARFARIN INR THERAPY RANGESSTANDARD DOSE: 2.0 - 3.0 Includes: PROPHYLAXIS forvenous thrombosis, systemic embolization; TREATMENT for venous thrombosis and/or pulmonary embolus.HIGH RISK: Target INR is 2.5-3.5 for patients with mechanical heart valves.CBC (HEMOGRAM ONLY)2017-11-26 07:09:00 Test Item Value Reference Range Interpretation Comments WHITE BLOOD CELL COUNT (BEAKER) 7.3 K/ L 3.5-10.5 (test code = 775) RED BLOOD CELL COUNT (BEAKER) 4.18 M/ L 4.63-6.08 L (test code = 761) HEMOGLOBIN (BEAKER) (test code = 9.7 GM/DL 13.7-17.5 L 410) HEMATOCRIT (BEAKER) (test code = 32.0 % 40.1-51.0 L 411) MEAN CORPUSCULAR VOLUME (BEAKER) 76.6 fL 79.0-92.2 L (test code = 753) MEAN CORPUSCULAR HEMOGLOBIN 23.2 pg 25.7-32.2 L (BEAKER) (test code = 751) MEAN CORPUSCULAR HEMOGLOBIN CONC 30.3 GM/DL 32.3-36.5 L (BEAKER) (test code = 752) RED CELL DISTRIBUTION WIDTH 16.0 % 11.6-14.4 H (BEAKER) (test code = 412) PLATELET COUNT (BEAKER) (test 179 K/CU MM 150-450 code = 756) MEAN PLATELET VOLUME (BEAKER) 10.0 fL 9.4-12.4 (test code = 754) NUCLEATED RED BLOOD CELLS 0 /100 WBC 0-0 (BEAKER) (test code = 413) [id number] 23:49:00 Test Item Value Reference Range Interpretation Comments PARTIAL THROMBOPLASTIN TIME 60.2 seconds 22.5-36.0 H (AKER) (test code = 760) POCT-GLUCOSE [id number] 21:53:00 Test Item Value Reference Range Interpretation Comments POC-GLUCOSE METER 309 mg/dL 70-[address] [facility] [address] ([facility]) (test code = [place] [facility] 1538) [address] POCT-GLUCOSE [id number] 17:31:00 Test Item Value Reference Range Interpretation Comments POC-GLUCOSE METER 331 mg/dL 70-110 H TESTED AT [place] [address] ([facility]) (test code = [facility] 1538) [address] RAD, ABDOMEN/KUB, 1 VIEW [id number] 15:59:00LABS: [id number] [place] [address] [phone] (PH) (FAX)Reason for exam:->epigastric painFINAL REPORT ONE VIEW ABDOMEN HISTORY: Epigastric pain COMPARISON: 01/18/2017 FI NDINGS: 2 supine AP images of the abdomen were obtained. No dilated loops of large or small intestine are visualized. There is gas in nondilated stomach and large intestine. No abnormal calcifications are visualized. Left ventricular assist device is partially imaged. Imaged lung bases appear clear. No skeletal abnormalities are identified. IMPRESSION: Nonobstructive bowel gas pattern. Signed: Vicky Brewstereport Verified Date/Time: 11/25/2017 15:59:39 Reading Location: [address] Ortho ConsultReading Room [id number] 15:57:00 Test Item Value Reference Range Interpretation Comments PARTIAL THROMBOPLASTIN TIME 100.6 seconds 22.5-36.0 H (BEAKER) (test code = 760) HEMOGLOBIN AND [id number] 15:41:00 Test Item Value Reference Range Interpretation Comments HEMOGLOBIN (BEAKER) (test code = 9.6 GM/DL 13.7-17.5 L 410) HEMATOCRIT (BEAKER) (test code = 30.6 % 40.1-51.0 L 411) POCT-GLUCOSE [id number] 13:13:00 Test Item Value Reference Range Interpretation Comments POC-GLUCOSE METER 290 mg/dL 70-[address] [facility] [address] ([facility]) (test code = [place] [facility] 1538) [address] POCT-GLUCOSE [id number] 08:57:00 Test Item Value Reference Range Interpretation Comments POC-GLUCOSE METER 198 mg/dL 70-110 H TESTED AT [place] [address] ([facility]) (test code = [place] [facility] 1538) [address] [id number] 08:26:00 Test Item Value Reference Range Interpretation Comments PARTIAL THROMBOPLASTIN TIME 61.2 seconds 22.5-36.0 H (BEAKER) (test code = 760) BASIC METABOLIC [id number] 05:38:00 Test Item Value Reference Range Interpretation Comments SODIUM (BEAKER) 134 meq/L 136-145 L (test code = 381) POTASSIUM (BEAKER) 3.8 meq/L 3.5-5.1 (test code = 379) CHLORIDE (BEAKER) 102 meq/L 98-107 (test code = 382) CO2 (BEAKER) (test 26 meq/L 22-29 code = 355) BLOOD UREA NITROGEN 16 mg/dL 7-21 (BEAKER) (test code = 354) CREATININE (BEAKER) 1.01 mg/dL 0.57-1.25 (test code = 358) GLUCOSE RANDOM 231 mg/dL 70-105 H (BEAKER) (test code = 652) CALCIUM (BEAKER) 8.7 mg/dL 8.4-10.2 (test code = 697) EGFR (BEAKER) (test 77 mL/min/1.73 ESTIMA JENIFER GFR IS code = 1092) sq m NOT ACCURATE CREATININE CLEARANCE IN PREDICTING GLOMERULAR FILTRATION RATE . ESTIMATED GFR I S NOT APPLICABLE FOR DIALYSIS PATIEN [id number] 05:19:00 Test Item Value Reference Range Interpretation Comments PARTIAL THROMBOPLASTIN TIME 130.0 seconds 22.5-36.0 H (BEAKER) (test code = 760) PROTHROMBIN [id number] 05:10:00 Test Item Value Reference Range Interpretation Comments PROTIME (BEAKER) (test code = 15.6 seconds 11.7-14.7 H 759) INR (BEAKER) (test code = 370) 1.3 <=5.9 RECOMMENDED COUMADIN/WARFARIN INR THERAPY RANGESSTANDARD DOSE: 2.0 - 3.0 Includes: PROPHYLAXIS forvenous thrombosis, systemic embolization; TREATMENT for venous thrombosis and/or pulmonary embolus.HIGH RISK: Target INR is 2.5-3.5 for patients with mechanical heart valves.CBC (HEMOGRAM ONLY)2017-11-25 04:57:00 Test Item Value Reference Range Interpretation Comments WHITE BLOOD CELL COUNT (BEAKER) 7.1 K/ L 3.5-10.5 (test code = 775) RED BLOOD CELL COUNT (BEAKER) 3.89 M/ L 4.63-6.08 L (test code = 761) HEMOGLOBIN (BEAKER) (test code = 9.1 GM/DL 13.7-17.5 L 410) HEMATOCRIT (BEAKER) (test code = 30.7 % 40.1-51.0 L 411) MEAN CORPUSCULAR VOLUME (BEAKER) 78.9 fL 79.0-92.2 L (test code = 753) MEAN CORPUSCULAR HEMOGLOBIN 23.4 pg 25.7-32.2 L (BEAKER) (test code = 751) MEAN CORPUSCULAR HEMOGLOBIN CONC 29.6 GM/DL 32.3-36.5 L (BEAKER) (test code = 752) RED CELL DISTRIBUTION WIDTH 15.7 % 11.6-14.4 H (BEAKER) (test code = 412) PLATELET COUNT (BEAKER) (test 163 K/CU MM 150-450 code = 756) MEAN PLATELET VOLUME (BEAKER) 9.8 fL 9.4-12.4 (test code = 754) NUCLEATED RED BLOOD CELLS 0 /100 WBC 0-0 (BEAKER) (test code = 413) [id number] 22:42:00 Test Item Value Reference Range Interpretation Comments PARTIAL THROMBOPLASTIN TIME 63.8 seconds 22.5-36.0 H (BEAKER) (test code = 760) POCT-GLUCOSE [id number] 21:35:00 Test Item Value Reference Range Interpretation Comments POC-GLUCOSE METER 215 mg/dL 70-110 H TESTED AT [place] [address] ([facility]) (test code = [place] 1538) [address] POCT-GLUCOSE [id number] 17:39:00 Test Item Value Reference Range Interpretation Comments POC-GLUCOSE METER 278 mg/dL 70-110 H TESTED AT [place] [address] ([facility]) (test code = [place] 1538) [address] [id number] 14:16:00 Test Item Value Reference Range Interpretation Comments PARTIAL THROMBOPLASTIN TIME 57.4 seconds 22.5-36.0 H (BEAKER) (test code = 760) POCT-GLUCOSE [id number] 13:48:00 Test Item Value Reference Range Interpretation Comments POC-GLUCOSE METER 215 mg/dL 70-110 H TESTED AT [place] [address] ([facility]) (test code = [place] 1538) [address] POCT-GLUCOSE [id number] 08:27:00 Test Item Value Reference Range Interpretation Comments POC-GLUCOSE METER 322 mg/dL 70-110 H TESTED AT [place] [address] ([facility]) (test code = [place] 1538) [address] BASIC METABOLIC [id number] 07:05:00 Test Item Value Reference Range Interpretation Comments SODIUM (BEAKER) 134 meq/L 136-145 L (test code = 381) POTASSIUM (BEAKER) 4.6 meq/L 3.5-5.1 Specimen slightly (test code = 379) hemolyzed CHLORIDE (BEAKER) 104 meq/L 98-107 (test code = 382) CO2 (BEAKER) (test 23 meq/L 22-29 code = 355) BLOOD UREA NITROGEN 16 mg/dL 7-21 (BEAKER) (test code = 354) CREATININE (BEAKER) 1.01 mg/dL 0.57-1.25 Specimen slightly (test code = 358) hemolyzed GLUCOSE RANDOM 325 mg/dL 70-105 H (BEAKER) (test code = 652) CALCIUM (BEAKER) 8.5 mg/dL 8.4-10.2 (test code = 697) EGFR (BEAKER) (test 77 mL/min/1.73 ESTIMA JENIFER GFR IS code = 1092) sq m NOT ACCURATE CREATININE CLEARANCE IN PREDICTING GLOMERULAR FILTRATION RATE . ESTIMATED GFR I S NOT APPLICABLE FOR DIALYSIS PATIEN TS. CBC (HEMOGRAM ONLY)2017-11-24 06:48:00 Test Item Value Reference Range Interpretation Comments WHITE BLOOD CELL COUNT (BEAKER) 6.6 K/ L 3.5-10.5 (test code = 775) RED BLOOD CELL COUNT (BEAKER) 3.94 M/ L 4.63-6.08 L (test code = 761) HEMOGLOBIN (BEAKER) (test code = 9.3 GM/DL 13.7-17.5 L 410) HEMATOCRIT (BEAKER) (test code = 30.8 % 40.1-51.0 L 411) MEAN CORPUSCULAR VOLUME (BEAKER) 78.2 fL 79.0-92.2 L (test code = 753) MEAN CORPUSCULAR HEMOGLOBIN 23.6 pg 25.7-32.2 L (BEAKER) (test code = 751) MEAN CORPUSCULAR HEMOGLOBIN CONC 30.2 GM/DL 32.3-36.5 L (BEAKER) (test code = 752) RED CELL DISTRIBUTION WIDTH 15.1 % 11.6-14.4 H (BEAKER) (test code = 412) PLATELET COUNT (BEAKER) (test 148 K/CU MM 150-450 L code = 756) MEAN PLATELET VOLUME (BEAKER) 10.2 fL 9.4-12.4 (test code = 754) NUCLEATED RED BLOOD CELLS 0 /100 WBC 0-0 (BEAKER) (test code = 413) PROTHROMBIN [id number] 06:46:00 Test Item Value Reference Range Interpretation Comments PROTIME (BEAKER) (test code = 17.1 seconds 11.7-14.7 H 759) INR (BEAKER) (test code = 370) 1.4 <=5.9 RECOMMENDED COUMADIN/WARFARIN INR THERAPY RANGESSTANDARD DOSE: 2.0 - 3.0 Includes: PROPHYLAXIS forvenous thrombosis, systemic embolization; TREATMENT for venous thrombosis and/or pulmonary embolus.HIGH RISK: Target INR is 2.5-3.5 for patients with mechanical heart valves.[id number] 06:46:00 Test Item Value Reference Range Interpretation Comments PARTIAL THROMBOPLASTIN TIME 52.5 seconds 22.5-36.0 H ([facility]) (test code = 760) [id number] 22:51:00 Test Item Value Reference Range Interpretation Comments PARTIAL THROMBOPLASTIN TIME 45.0 seconds 22.5-36.0 H ([facility]) (test code = 760) POCT-GLUCOSE [id number] 20:33:00 Test Item Value Reference Range Interpretation Comments POC-GLUCOSE METER 290 mg/dL 70-110 H TESTED AT [place] [address] ([facility]) [facility] 1538[facility] [address] POCT-GLUCOSE [id number] 17:18:00 Test Item Value Reference Range Interpretation Comments POC-GLUCOSE METER 281 mg/dL 70-110 H TESTED AT [place] [address] ([facility]) (test code = [place] [facility] 1538) [address] POCT-GLUCOSE [id number] 17:00:00 Test Item Value Reference Range Interpretation Comments POC-GLUCOSE METER 169 mg/dL 70-110 H TESTED AT [place] [address] ([facility]) (test code = [place] [facility] 1538) [address] POCT-GLUCOSE [id number] 17:00:00 Test Item Value Reference Range Interpretation Comments POC-GLUCOSE METER 232 mg/dL 70-110 H TESTED AT [place] [address] ([facility]) (test code = [place] [facility] 1538) [address] [id number] 15:43:00 Test Item Value Reference Range Interpretation Comments PARTIAL THROMBOPLASTIN TIME 36.2 seconds 22.5-36.0 H ([facility]) (test code = 760) 6 hours after starting heparin infusion and as indicated per sliding scaleTISSUE [id number] 15:42:00Surgical Pathology Report Case: [id number] Authorizing Provider: Emely Wellington Collected: 11/22/2017 Mervin Saunders MD [facility]ing[facility] CV Recovery Room 2 Received: 11/23/2017 0806 Pathologist: Antonette Jean MD Specimen: Stomach, Antrum, polyp PART A GASTRIC ANTRUM POLYP, BIOPSY:GASTRIC MUCOSA WITH HYPERPLASTIC FEATURES AND FOCAL INTESTINAL METAPLASIA.NEGATIVEFOR DYSPLASIA OR INVASIVE CARCINOMA.WARTHIN STARRY STAIN FOR HELICOBACTER IS NEGATIVE. Signing Pathologist Direct Phone Line: [phone] signed by Antonette Jean MD on 11/23/2017 at 3:42 [id number], [id number] hemorrhage Stomach antrum polyp The specimen is received in a formalin-filled container labeled with the patient's information and labeled "stomach antrum polyp" and consists of a 0.1 cm fragment of esteban soft tissue submitted in A1. CG/ew The following special studies were performed on this case and the interpretation is incorporated in the diagnostic report above:BLOCK A1- WARTHIIke STARRYPOCT-GLUCOSE [id number] 07:19:00 Test Item Value Reference Range Interpretation Comments POC-GLUCOSE METER 271 mg/dL 70-[address] [facility] ([facility]) (test code = [place] [facility] 1538) [id number] BASIC METABOLIC [id number] 06:09:00 Test Item Value Reference Range Interpretation Comments SODIUM (BEAKER) 138 meq/L 136-145 (test code = 381) POTASSIUM (BEAKER) 3.9 meq/L 3.5-5.1 (test code = 379) CHLORIDE (BEAKER) 104 meq/L 98-107 (test code = 382) CO2 (BEAKER) (test 29 meq/L 22-29 code = 355) BLOOD UREA NITROGEN 16 mg/dL 7-21 (BEAKER) (test code = 354) CREATININE (BEAKER) 1.15 mg/dL 0.57-1.25 (test code = 358) GLUCOSE RANDOM 234 mg/dL 70-105 H (BEAKER) (test code = 652) CALCIUM (BEAKER) 8.5 mg/dL 8.4-10.2 (test code = 697) EGFR (BEAKER) (test 66 mL/min/1.73 ESTIMA JENIFER GFR IS code = 1092) sq m NOT ACCURATE CREATININE CLEARANCE IN PREDICTING GLOMERULAR FILTRATION RATE . ESTIMATED GFR I S NOT APPLICABLE FOR DIALYSIS PATIEN TS. PROTHROMBIN TIME/[id number] 05:45:00 Test Item Value Reference Range Interpretation Comments PROTIME (BEAKER) (test code = 20.0 seconds 11.7-14.7 H 759) INR (BEAKER) (test code = 370) 1.7 <=5.9 RECOMMENDED COUMADIN/WARFARIN INR THERAPY RANGESSTANDARD DOSE: 2.0 - 3.0 Includes: PROPHYLAXIS forvenous thrombosis, systemic embolization; TREATMENT for venous thrombosis and/or pulmonary embolus.HIGH RISK: Target INR is 2.5-3.5 for patients with mechanical heart valves.CBC W/PLT COUNT & AUTO DIFFERENTIAL 2017-11-23 05:36:00 Test Item Value Reference Range Interpretation Comments WHITE BLOOD CELL COUNT (BEAKER) 8.1 K/ L 3.5-10.5 (test code = 775) RED BLOOD CELL COUNT (BEAKER) 4.23 M/ L 4.63-6.08 L (test code = 761) HEMOGLOBIN (BEAKER) (test code = 10.0 GM/DL 13.7-17.5 L 410) HEMATOCRIT (BEAKER) (test code = 32.6 % 40.1-51.0 L 411) MEAN CORPUSCULAR VOLUME (BEAKER) 77.1 fL 79.0-92.2 L (test code = 753) MEAN CORPUSCULAR HEMOGLOBIN 23.6 pg 25.7-32.2 L (BEAKER) (test code = 751) MEAN CORPUSCULAR HEMOGLOBIN CONC 30.7 GM/DL 32.3-36.5 L (BEAKER) (test code = 752) RED CELL DISTRIBUTION WIDTH 15.0 % 11.6-14.4 H (BEAKER) (test code = 412) PLATELET COUNT (BEAKER) (test 185 K/CU MM 150-450 code = 756) MEAN PLATELET VOLUME (BEAKER) 9.9 fL 9.4-12.4 (test code = 754) NUCLEATED RED BLOOD CELLS 0 /100 WBC 0-0 (BEAKER) (test code = 413) NEUTROPHILS RELATIVE PERCENT 70 % (BEAKER) (test code = 429) LYMPHOCYTES RELATIVE PERCENT 19 % (BEAKER) (test code = 430) MONOCYTES RELATIVE PERCENT 7 % (BEAKER) (test code = 431) EOSINOPHILS RELATIVE PERCENT 3 % (BEAKER) (test code = 432) BASOPHILS RELATIVE PERCENT 1 % (BEAKER) (test code = 437) NEUTROPHILS ABSOLUTE COUNT 5.65 K/ L 1.78-5.38 H (BEAKER) (test code = 670) LYMPHOCYTES ABSOLUTE COUNT 1.53 K/ L 1.32-3.57 (BEAKER) (test code = 414) MONOCYTES ABSOLUTE COUNT (BEAKER) 0.56 K/ L 0.30-0.82 (test code = 415) EOSINOPHILS ABSOLUTE COUNT 0.23 K/ L 0.04-0.54 (BEAKER) (test code = 416) BASOPHILS ABSOLUTE COUNT (BEAKER) 0.07 K/ L 0.01-0.08 (test code = 417) IMMATURE GRANULOCYTES-RELATIVE 1 % 0-1 PERCENT (BEAKER) (test code = 2801) BASIC METABOLIC [id number] 05:20:00 Test Item Value Reference Range Interpretation Comments SODIUM (BEAKER) 138 meq/L 136-145 (test code = 381) POTASSIUM (BEAKER) 4.3 meq/L 3.5-5.1 (test code = 379) CHLORIDE (BEAKER) 105 meq/L 98-107 (test code = 382) CO2 (BEAKER) (test 26 meq/L 22-29 code = 355) BLOOD UREA NITROGEN 20 mg/dL 7-21 (BEAKER) (test code = 354) CREATININE (BEAKER) 1.05 mg/dL 0.57-1.25 (test code = 358) GLUCOSE RANDOM 198 mg/dL 70-105 H (BEAKER) (test code = 652) CALCIUM (BEAKER) 8.1 mg/dL 8.4-10.2 L (test code = 697) EGFR (BEAKER) (test 73 mL/min/1.73 ESTIMA JENIFER GFR IS code = 1092) sq m NOT ACCURATE CREATININE CLEARANCE IN PREDICTING GLOMERULAR FILTRATION RATE . ESTIMATED GFR I S NOT APPLICABLE FOR DIALYSIS PATIEN TS. HEMOGLOBIN AND [id number] 05:14:00 Test Item Value Reference Range Interpretation Comments HEMOGLOBIN (BEAKER) (test code = 9.6 GM/DL 13.7-17.5 L 410) HEMATOCRIT (BEAKER) (test code = 32.0 % 40.1-51.0 L 411) PROTHROMBIN [id number] 04:58:00 Test Item Value Reference Range Interpretation Comments PROTIME (BEAKER) (test code = 23.2 seconds 11.7-14.7 H 759) INR ([facility]) (test code = 370) 2.1 <=5.9 RECOMMENDED COUMADIN/WARFARIN INR THERAPY RANGESSTANDARD DOSE: 2.0 - 3.0 Includes: PROPHYLAXIS forvenous thrombosis, systemic embolization; TREATMENT for venous thrombosis and/or pulmonary embolus.HIGH RISK: Target INR is 2.5-3.5 for patients with mechanical heart valves.POCT-GLUCOSE [id number] 00:43:00 Test Item Value Reference Range Interpretation Comments POC-GLUCOSE METER 262 mg/dL 70-110 H TESTED AT [place] [address] ([facility]) (test code = CHULA [facility] 1538) [address] HEMOGLOBIN AND [id number] 23:41:00 Test Item Value Reference Range Interpretation Comments HEMOGLOBIN (BEAKER) (test code = 10.2 GM/DL 13.7-17.5 L 410) HEMATOCRIT (BEBANNER) (test code = 33.5 % 40.1-51.0 L 411) POCT-GLUCOSE [id number] 18:36:00 Test Item Value Reference Range Interpretation Comments POC-GLUCOSE METER 309 mg/dL 70-110 H TESTED AT [place] [address] ([facility]) (test code = [facility] 1538) [address] HEMOGLOBIN AND [id number] 18:35:00 Test Item Value Reference Range Interpretation Comments HEMOGLOBIN (BEAKER) (test code = 9.6 GM/DL 13.7-17.5 L 410) HEMATOCRIT (BEBANNER) (test code = 31.3 % 40.1-51.0 L 411) POCT-GLUCOSE [id number] 13:11:00 Test Item Value Reference Range Interpretation Comments POC-GLUCOSE METER 217 mg/dL 70-110 H TESTED AT [place] [address] ([facility]) (test code = [facility] 1538) [address] LACTATE DEHYDROGENASE (LDH)2017-11-21 12:53:00 Test Item Value Reference Range Interpretation Comments LACTATE DEHYDROGENASE (BEAKER) (test 318 U/L 125-220 H code = 635) HEMOGLOBIN AND [id number] 12:12:00 Test Item Value Reference Range Interpretation Comments HEMOGLOBIN (BEAKER) (test code = 9.9 GM/DL 13.7-17.5 L 410) HEMATOCRIT (BEAKER) (test code = 32.7 % 40.1-51.0 L 411) B-TYPE NATRIURETIC FACTOR (BNP)2017-11-21 03:36:00 Test Item Value Reference Range Interpretation Comments B-TYPE NATRIURETIC PEPTIDE (BEAKER) 339 pg/mL 0-100 H (test code = 700) CREATINE KINASE (CK), TOTAL AND [id number] 02:58:00 Test Item Value Reference Range Interpretation Comments CREATINE KINASE TOTAL (BEAKER) 59 U/L 29-200 (test code = 380) CREATINE KINASE-MB (BEAKER) (test 1.0 ng/mL 0.0-6.6 code = 750) CREATINE KINASE-MB INDEX (BEAKER) 1.7 % (test code = 395) CK-MB Reference Range:<6.7 Normal6.7-10.0 Borderline>10.0 AbnormalTROPONIN [id number] 02:58:00 Test Item Value Reference Range Interpretation Comments TROPONIN I (BEAKER) (test code = 397) < ng/mL 0.00-0.03 Troponin I (TnI) levels [...] and persistent tachyarrhythmia.RAD, CHEST, 1 VIEW, NON [id number] 02:11:00LABS: [facility] [address] [place] [address] [phone] () [phone] (FAX)Reason for exam:->EPISTAXISReason for exam:->RECTAL BLEEDINGReason for exam:->ABDOMINAL PAINShould this [...] Impression: No acute abnormality. Signed: Thang Rodriguez MDReport Verified Date/Time: 11/21/2017 02:11:19 Reading Location: [address] Reading Room [id number] 01:04:00 Test Item Value Reference Range Interpretation Comments LIPASE (BEAKER) (test code = 749) 20 U/L 8-78 [id number] 01:04:00 Test Item Value Reference Range Interpretation Comments AMYLASE (BEAKER) (test code = 349) 28 U/L 25-125 BASIC METABOLIC [id number] 01:04:00 Test Item Value Reference Range Interpretation Comments SODIUM (BEAKER) 139 meq/L 136-145 (test code = 381) POTASSIUM (BEAKER) 4.6 meq/L 3.5-5.1 (test code = 379) CHLORIDE (BEAKER) 105 meq/L 98-107 (test code = 382) CO2 (BEAKER) (test 26 meq/L 22-29 code = 355) BLOOD UREA NITROGEN 31 mg/dL 7-21 H (BEAKER) (test code = 354) CREATININE (BEAKER) 1.26 mg/dL 0.57-1.25 H (test code = 358) GLUCOSE RANDOM 225 mg/dL 70-105 H (BEAKER) (test code = 652) CALCIUM (BEAKER) 8.6 mg/dL 8.4-10.2 (test code = 697) EGFR (BEAKER) (test 59 mL/min/1.73 ESTIMA JENIFER GFR IS code = 1092) sq m NOT ACCURATE CREATININE CLEARANCE IN PREDICTING GLOMERULAR FILTRATION RATE . ESTIMATED GFR I S NOT APPLICABLE FOR DIALYSIS PATIEN TS. HEPATIC FUNCTION [id number] 01:04:00 Test Item Value Reference Range Interpretation Comments TOTAL PROTEIN (BEAKER) (test code = 7.5 gm/dL 6.0-8.3 770) ALBUMIN (BEAKER) (test code = 1145) 3.5 g/dL 3.5-5.0 BILIRUBIN TOTAL (BEAKER) (test code 0.6 mg/dL 0.2-1.2 = 377) BILIRUBIN DIRECT (BEAKER) (test 0.2 mg/dL 0.1-0.5 code = 706) ALKALINE PHOSPHATASE (BEAKER) (test 106 U/L 40-150 code = 346) AST (SGOT) (BEAKER) (test code = 22 U/L 5-34 353) ALT (SGPT) (BEAKER) (test code = 25 U/L 6-55 347) URINALYSIS W/ [id number] 00:56:00 Test Item Value Reference Range Interpretation Comments COLOR (BEAKER) (test code = Yellow 470) CLARITY (BEAKER) (test code = Clear 469) SPECIFIC GRAVITY UA (BEAKER) 1.015 1.001-1.035 (test code = 468) PH UA (BEAKER) (test code = 5.5 5.0-8.0 467) PROTEIN UA (BEAKER) (test code 20 mg/dL Negative A = 464) GLUCOSE UA (BEAKER) (test code Negative Negative = 365) KETONES UA (BEAKER) (test code Negative Negative = 371) BILIRUBIN UA (BEAKER) (test Negative Negative code = 462) BLOOD UA (BEAKER) (test code = Small Negative A 461) NITRITE UA (BEAKER) (test code Negative Negative = 465) LEUKOCYTE ESTERASE UA (BEAKER) Negative Negative (test code = 466) UROBILINOGEN UA (BEAKER) (test 0.2 mg/dL 0.2-1.0 code = 463) RBC UA (BEAKER) (test code = 4 /HPF 519) WBC UA (BEAKER) (test code = 1 /HPF 520) SQUAMOUS EPITHELIAL (BEAKER) < /HPF (test code = 516) HYALINE CASTS (BEAKER) (test 1 /LPF code = 514) SOURCE(BEAKER) (test code = Urine, Voided 8560) CBC W/PLT COUNT & AUTO [id number] 00:33:00 Test Item Value Reference Range Interpretation Comments WHITE BLOOD CELL COUNT (BEAKER) 7.7 K/ L 3.5-10.5 (test code = 775) RED BLOOD CELL COUNT (BEAKER) 3.87 M/ L 4.63-6.08 L (test code = 761) HEMOGLOBIN (BEAKER) (test code = 8.7 GM/DL 13.7-17.5 L 410) HEMATOCRIT (BEAKER) (test code = 29.7 % 40.1-51.0 L 411) MEAN CORPUSCULAR VOLUME (BEAKER) 76.7 fL 79.0-92.2 L (test code = 753) MEAN CORPUSCULAR HEMOGLOBIN 22.5 pg 25.7-32.2 L (BEAKER) (test code = 751) MEAN CORPUSCULAR HEMOGLOBIN CONC 29.3 GM/DL 32.3-36.5 L (BEAKER) (test code = 752) RED CELL DISTRIBUTION WIDTH 14.8 % 11.6-14.4 H (BEAKER) (test code = 412) PLATELET COUNT (BEAKER) (test 188 K/CU MM 150-450 code = 756) MEAN PLATELET VOLUME (BEAKER) 9.8 fL 9.4-12.4 (test code = 754) NUCLEATED RED BLOOD CELLS 0 /100 WBC 0-0 (BEAKER) (test code = 413) NEUTROPHILS RELATIVE PERCENT 67 % (BEAKER) (test code = 429) LYMPHOCYTES RELATIVE PERCENT 23 % (BEAKER) (test code = 430) MONOCYTES RELATIVE PERCENT 7 % (BEAKER) (test code = 431) EOSINOPHILS RELATIVE PERCENT 2 % (BEAKER) (test code = 432) BASOPHILS RELATIVE PERCENT 1 % (BEAKER) (test code = 437) NEUTROPHILS ABSOLUTE COUNT 5.13 K/ L 1.78-5.38 (BEAKER) (test code = 670) LYMPHOCYTES ABSOLUTE COUNT 1.73 K/ L 1.32-3.57 (BEAKER) (test code = 414) MONOCYTES ABSOLUTE COUNT (BEAKER) 0.53 K/ L 0.30-0.82 (test code = 415) EOSINOPHILS ABSOLUTE COUNT 0.18 K/ L 0.04-0.54 (BEAKER) (test code = 416) BASOPHILS ABSOLUTE COUNT (BEAKER) 0.07 K/ L 0.01-0.08 (test code = 417) IMMATURE GRANULOCYTES-RELATIVE 1 % 0-1 PERCENT (BEAKER) (test code = 2801) [id number] 00:17:00 Test Item Value Reference Range Interpretation Comments PROTIME (BEAKER) (test code = 25.4 seconds 11.7-14.7 H 759) INR (BEAKER) (test code = 370) 2.3 <=5.9 PARTIAL THROMBOPLASTIN TIME 36.2 seconds 22.5-36.0 H (BEAKER) (test code = 760) RECOMMENDED COUMADIN/WARFARIN INR THERAPY RANGESSTANDARD DOSE: 2.0 - 3.0 Includes: PROPHYLAXIS forvenous thrombosis, systemic embolization; TREATMENT for venous thrombosis and/or pulmonary embolus.HIGH RISK: Target INR is 2.5-3.5 for patients with mechanical heart valves.PLASMA FREE [id number] 07:27:00 Test Item Value Reference Range Interpretation Comments HEMOGLOBIN PLASMA (BEAKER) (test 30.0 mg/dl 0.0-30.0 code = 1054) HEMOGLOBIN [id number] 20:04:00 Test Item Value Reference Range Interpretation Comments HEMOGLOBIN A1C (BEAKER) (test code = 6.7 % 4.3-6.1 H 368) [id number] 14:33:00 Test Item Value Reference Range Interpretation Comments PREALBUMIN (BEAKER) (test code = 16 mg/dL 14-45 586) CT, CHEST, WITHOUT [id number] 14:33:00LABS: [facility] [address] [place] [address] [phone] () [phone] (FAX)FINAL REPORT HISTORY: Lung nodule, <1cm COMPARISON [...] within normal limits. A left-sided multilead ICD i s in place. In the posterior aspect of the trachea, there is a nodular density measuring up to 1.0 cm. This may represent some aspirated/mucus material. However, the findings can be correlated with direct visualization to exclude the possibility of a mass. There is no hilar, mediastinal or axillary lym phadenopathy. An LVAD is in place. The patient [...] aspirated/mucus material. Please see above. Signed: Ric Basseport Verified Date/Time: 10/05/2017 14:33:30 Reading Location: [facility] Diagnostic Imaging Reading Room - [place] [address] [id number] 14:27:00 Test Item Value Reference Range Interpretation Comments MAGNESIUM (BEAKER) (test code = 1.8 mg/dL 1.6-2.6 627) BASIC METABOLIC [id number] 14:27:00 Test Item Value Reference Range Interpretation Comments SODIUM (BEAKER) 137 meq/L 136-145 (test code = 381) POTASSIUM (BEAKER) 4.7 meq/L 3.5-5.1 (test code = 379) CHLORIDE (BEAKER) 103 meq/L 98-107 (test code = 382) CO2 (BEAKER) (test 26 meq/L 22-29 code = 355) BLOOD UREA NITROGEN 25 mg/dL 7-21 H (BEAKER) (test code = 354) CREATININE (BEAKER) 1.26 mg/dL 0.57-1.25 H (test code = 358) GLUCOSE RANDOM 157 mg/dL 70-105 H (BEAKER) (test code = 652) CALCIUM (BEAKER) 8.9 mg/dL 8.4-10.2 (test code = 697) EGFR (BEAKER) (test 59 mL/min/1.73 ESTIMA JENIFER GFR IS code = 1092) sq m NOT ACCURATE CREATININE CLEARANCE IN PREDICTING GLOMERULAR FILTRATION RATE . ESTIMATED GFR I S NOT APPLICABLE FOR DIALYSIS PATIEN TS. HEPATIC FUNCTION [id number] 14:27:00 Test Item Value Reference Range Interpretation Comments TOTAL PROTEIN (BEAKER) (test code = 7.9 gm/dL 6.0-8.3 770) ALBUMIN (BEAKER) (test code = 1145) 3.8 g/dL 3.5-5.0 BILIRUBIN TOTAL (BEAKER) (test code 0.6 mg/dL 0.2-1.2 = 377) BILIRUBIN DIRECT (BEAKER) (test 0.3 mg/dL 0.1-0.5 code = 706) ALKALINE PHOSPHATASE (BEAKER) (test 97 U/L 40-150 code = 346) AST (SGOT) (BEAKER) (test code = 24 U/L 5-34 353) ALT (SGPT) (BEAKER) (test code = 31 U/L 6-55 347) LACTATE DEHYDROGENASE (LDH)2017-10-05 14:27:00 Test Item Value Reference Range Interpretation Comments LACTATE DEHYDROGENASE (BEAKER) (test 282 U/L 125-220 H code = 635) PROTHROMBIN [id number] 13:48:00 Test Item Value Reference Range Interpretation Comments PROTIME (BEAKER) (test code = 22.5 seconds 11.7-14.7 H 759) INR (BEAKER) (test code = 370) 2.0 <=5.9 RECOMMENDED COUMADIN/WARFARIN INR THERAPY RANGESSTANDARD DOSE: 2.0 - 3.0 Includes: PROPHYLAXIS forvenous thrombosis, systemic embolization; TREATMENT for venous thrombosis and/or pulmonary embolus.HIGH RISK: Target INR is 2.5-3.5 for patients with mechanical heart valves.CBC W/PLT COUNT & AUTO DIFFERENTIAL 2017-10-05 13:36:00 Test Item Value Reference Range Interpretation Comments WHITE BLOOD CELL COUNT (BEAKER) 6.8 K/ L 3.5-10.5 (test code = 775) RED BLOOD CELL COUNT (BEAKER) 4.69 M/ L 4.63-6.08 (test code = 761) HEMOGLOBIN (BEAKER) (test code = 11.1 GM/DL 13.7-17.5 L 410) HEMATOCRIT (BEAKER) (test code = 36.3 % 40.1-51.0 L 411) MEAN CORPUSCULAR VOLUME (BEAKER) 77.4 fL 79.0-92.2 L (test code = 753) MEAN CORPUSCULAR HEMOGLOBIN 23.7 pg 25.7-32.2 L (BEAKER) (test code = 751) MEAN CORPUSCULAR HEMOGLOBIN CONC 30.6 GM/DL 32.3-36.5 L (BEAKER) (test code = 752) RED CELL DISTRIBUTION WIDTH 15.4 % 11.6-14.4 H (BEAKER) (test code = 412) PLATELET COUNT (BEAKER) (test 183 K/CU MM 150-450 code = 756) MEAN PLATELET VOLUME (BEAKER) 10.0 fL 9.4-12.4 (test code = 754) NUCLEATED RED BLOOD CELLS 0 /100 WBC 0-0 (BEAKER) (test code = 413) NEUTROPHILS RELATIVE PERCENT 65 % (BEAKER) (test code = 429) LYMPHOCYTES RELATIVE PERCENT 24 % (BEAKER) (test code = 430) MONOCYTES RELATIVE PERCENT 8 % (BEAKER) (test code = 431) EOSINOPHILS RELATIVE PERCENT 2 % (BEAKER) (test code = 432) BASOPHILS RELATIVE PERCENT 1 % (BEAKER) (test code = 437) NEUTROPHILS ABSOLUTE COUNT 4.37 K/ L 1.78-5.38 (BEAKER) (test code = 670) LYMPHOCYTES ABSOLUTE COUNT 1.62 K/ L 1.32-3.57 (BEAKER) (test code = 414) MONOCYTES ABSOLUTE COUNT (BEAKER) 0.55 K/ L 0.30-0.82 (test code = 415) EOSINOPHILS ABSOLUTE COUNT 0.15 K/ L 0.04-0.54 (BEAKER) (test code = 416) BASOPHILS ABSOLUTE COUNT (BEAKER) 0.07 K/ L 0.01-0.08 (test code = 417) IMMATURE GRANULOCYTES-RELATIVE 0 % 0-1 PERCENT (BEAKER) (test code = 2801) HEPATITIS C PCR, [id number] 09:32:00 Test Item Value Reference Range Interpretation Comments HCV RESULT COMPONENT HCV RNA not detected HCV RNA not detected (BEAKER) (test code = 2699) This test uses a Real-Time Polymerase Chain Reaction (RT-PCR) methodology and was performed using BHASKAR Ampliprep/BHASKAR TaqMan HCV test kit version 2.0 ([employer]).Reportable range for this assay is 15 - 100,000,000 IU per mL (1.18 - 8.00 Log IU/mL).AB SPECIFICITY CLASS [id number] 09:45:00 Test Item Value Reference Range Interpretation Comments DATE OF SERUM (BEAKER) 708334 (test code = 2289) SERUM # (BEAKER) (test 988244 code = 2290) AB SPECIFICITY CLASS I See Scanned Report (BEAKER) (test code = 2429) FLOW PRA CLASS I AND [id number] 14:14:00 Test Item Value Reference Range Interpretation Comments DATE OF SERUM (BEAKER) 600431 (test code = 2289) SERUM # (BEAKER) (test 360317 code = 2290) FLOW PRA CLASS I AND II See Scanned Report (test code = 2421) HERPES VIRUS ANTIBODY, [id number] 07:57:00 Test Item Value Reference Range Interpretation Comments HERPES VIRUS IGM (BEAKER) (test code Negative = 1808) TOXOPLASMA GONDII ANTIBODY, [id number] 07:57:00 Test Item Value Reference Range Interpretation Comments TOXOPLASMA IGM ANTIBODY (BEAKER) Negative (test code = 742) ANTI-NUCLEAR ANTIBODY (NOLA)2017-09-01 10:42:00 Test Item Value Reference Range Interpretation Comments ANTI-NUCLEAR ANTIBODY (NOLA) (BEAKER) Negative Negative (test code = 418) CYTOMEGALOVIRUS ANTIBODY, [id number] 15:35:00 Test Item Value Reference Range Interpretation Comments CYTOMEGALOVIRUS IGG ANTIBODY Positive (BEAKER) (test code = 790) CYTOMEGALOVIRUS ANTIBODY, [id number] 15:35:00 Test Item Value Reference Range Interpretation Comments CYTOMEGALOVIRUS IGM ANTIBODY Negative (BEAKER) (test code = 816) EBV-VCA ANTIBODY, [id number] 15:35:00 Test Item Value Reference Range Interpretation Comments AMAURI-MASON VCA IGG (BEAKER) (test Positive code = 983) EBV-VCA ANTIBODY, [id number] 15:35:00 Test Item Value Reference Range Interpretation Comments AMAURI-MASON VCA IGM (BEAKER) (test Negative code = 984) HERPES VIRUS ANTIBODY, [id number] 15:35:00 Test Item Value Reference Range Interpretation Comments HERPES VIRUS IGG Positive HSV 1 IGG = POSHSV 2 (BEAKER) (test code = IGG = NEG 1807) TOXOPLASMA GONDII ANTIBODY, [id number] 15:35:00 Test Item Value Reference Range Interpretation Comments TOXOPLASMA GONDII IGG (BEAKER) (test Negative code = 419) IMMUNOFIXATION ELECTROPHORESIS (ANGELIKA)2017-08-31 15:30:00 Test Item Value Reference Range Interpretation Comments IMMUNOGLOBULIN G (IGG) 1527 mg/dL 540-1822 (BEAKER) (test code = 427) IMMUNOGLOBULIN A (IGA) 402 mg/dL 63-484 (BEAKER) (test code = 639) IMMUNOGLOBULIN M (IGM) 98 mg/dL 22-293 (BEAKER) (test code = 638) SERUM ANGELIKA ID (BEAKER) No monoclonal (test code = 1814) proteins detected. Polyclonal distribution of immunoglobulins. [id number] Gloria Schmidt ([facility]) (test code = (electronic 1597) signature) PROTEIN ELECTROPHORESIS, [id number] 15:29:00 Test Item Value Reference Range Interpretation Comments ALBUMIN FRACTION 3.4 g/dL 3.5-5.5 L (BEAKER) (test code = 405) ALPHA 1 FRACTION 0.3 g/dL 0.2-0.4 (BEAKER) (test code = 389) ALPHA 2 FRACTION 0.7 g/dL 0.5-0.9 (BEAKER) (test code = 390) BETA FRACTION 1.4 g/dL 0.6-1.1 H (BEAKER) (test code = 392) GAMMA GLOBULIN 1.5 g/dL 0.7-1.7 FRACTION (BEAKER) (test code = 391) INTERPRETATION-119 All fractions present in (BEAKER) (test code = expected distribution 2617) with minor nonspecific changes. No monoclonal bands detected. [id number] Gloria Schmidt MD ([facility]) (test code = (electronic signature) 6754) PROTEIN TOTAL SERUM, 7.3 gm/dL 6.0-8.3 SPEP (BEAKER) (test code = 2095) VARICELLA ZOSTER ANTIBODY, [id number] 15:16:00 Test Item Value Reference Range Interpretation Comments VARICELLA ZOSTER IGG (AL) (BEAKER) 6.1 Al (test code = 4737) VARICELLA ZOSTER RESULT INTERPRETATIONS: <=0.8 Al Nonreactive: Presumed non-immune to VZV 0.9-1.0 Al Equivocal >=1.1 Al Reactive: Presumed immune to VZVRAD, BONE DENSITY [id number] 11:20:00 LABS: [facility] [id number] [place], [place] [phone] () [phone] (FAX)Reason for Exam:->Heart transplant evaluationFINAL REPORT Bone mineral density study 08/31/2017. CLINICAL INDICATION: Heart transplant evaluation. COMPARISON: 02/03/2016 FINDINGS: Evaluation of the left and right femoral necks and lumbar spine was performed utilizing a Nayatek bone densitometer. Data reflect young adult matched T-scores and age-matched Z scores. IMPRESSION: The left femoral neck bone mineral density is 1.211gm/cm2, the T- score is 1.1, and the Z-score is 1.4. The right femoral neck total bone mineral density is 1.085gm/cm2, the T-score is 0.1, and the Z-score is 0.4. The lumbar spine total bone mineral density is 1.446gm/cm2, the T-score is 1.9, and the Z- score is 1.4. Compared tothe prior exam, the bone mineral density of the lumbar spine demonstrates a 1% decrease. The bone density of the left femoral neck demonstrates a 1.4% increase. The bone mineral density of the right femoral neck demonstrates a 4.9% decrease. Signed: Vicky Velazquez [facility] Verified Date/Time: 08/31/2017 11:20:44 Reading Location: [address] Mammo Reading Room , BRAIN, WITHOUT [id number] 09:58:00LABS: [facility] [address] [place] [address] () [phone] (FAX)FINAL REPORT CT head without contrast INDICATION: [...] Stable left mastoidectomy changes. Signed: Blaire Marsh Verified Date/Time: 08/31/2017 09:58:49 Reading Location: [place] [id number] Neuro Reading Room HEMOGLOBIN [id number] 16:20:00 Test Item Value Reference Range Interpretation Comments HEMOGLOBIN A1C (BEAKER) (test code = 9.5 % 4.3-6.1 H 368) RAD, CHEST, 2 [id number] 15:22:00LABS: [facility] [address] [place] [address] [phone] () [phone] (FAX)Reason for Exam:->Heart transplant evaluationFINAL REPORT Chest two views compared to January 17 Discussion: Left chest pacemaker and left ventricular assist device are noted. Lungs clear. Heart size normal. No effusion or pneumothorax. Signed: Maximus Miranda Verified Date/Time: 08/30/2017 15:22:59 Reading Location: [facility] C[facility] Consult Reading Room U/S, RENAL, COMPLETE 2017-08-30 15:04:00LABS: [facility] [id number] [place] [address] [phone] () [phone] (FAX)Reason for Exam:->Heart transplant evaluationFINAL REPORT Renal ultrasound Comparison: January [...] was not performed. Incidentally noted the prostate m easures 4.6 x 3.1 x 3.4 cm. Impression:The kidneys are normal in size and shape without evidence of hydronephrosis. Signed: Mona Solitarioeport Verified Date/Time: 08/30/2017 15:04:53 Reading Location: [address] Ultrasound Reading Room HEPATITIS C [id number] 14:00:00 Test Item Value Reference Range Interpretation Comments HEPATITIS C ANTIBODY (BEAKER) (test Reactive Nonreactive A code = 367) HEPATITIS A ANTIBODY, [id number] 12:06:00 Test Item Value Reference Range Interpretation Comments HEPATITIS A IGG ANTIBODY (BEAKER) Reactive Nonreactive A (test code = 2797) URINALYSIS W/ [id number] 11:35:00 Test Item Value Reference Range Interpretation Comments COLOR (BEAKER) (test code = 470) Yellow CLARITY (BEAKER) (test code = 469) Clear SPECIFIC GRAVITY UA (BEAKER) (test 1.015 1.001-1.035 code = 468) PH UA (BEAKER) (test code = 467) 5.5 5.0-8.0 PROTEIN UA (BEAKER) (test code = 20 mg/dL Negative A 464) GLUCOSE UA (BEAKER) (test code = Negative Negative 365) KETONES UA (BEAKER) (test code = Negative Negative 371) BILIRUBIN UA (BEAKER) (test code = Negative Negative 462) BLOOD UA (BEAKER) (test code = 461) Trace Negative A NITRITE UA (BEAKER) (test code = Negative Negative 465) LEUKOCYTE ESTERASE UA (BEAKER) Negative Negative (test code = 466) UROBILINOGEN UA (BEAKER) (test code 0.2 mg/dL 0.2-1.0 = 463) RBC UA (BEAKER) (test code = 519) 3 /HPF WBC UA (BEAKER) (test code = 520) 0 /HPF SOURCE(BEAKER) (test code = 2795) HEPATITIS B CORE ANTIBODY, [id number] 11:24:00 Test Item Value Reference Range Interpretation Comments HEPATITIS B CORE IGM ANTIBODY Nonreactive Nonreactive (BEAKER) (test code = 645) HEPATITIS A ANTIBODY, [id number] 11:24:00 Test Item Value Reference Range Interpretation Comments HEPATITIS A IGM ANTIBODY (BEAKER) Nonreactive Nonreactive (test code = 498) HEPATITIS B CORE ANTIBODY, [id number] 11:24:00 Test Item Value Reference Range Interpretation Comments HEPATITIS B CORE TOTAL ANTIBODY Nonreactive Nonreactive (BEAKER) (test code = 497) [id number] 11:24:00 Test Item Value Reference Range Interpretation Comments RPR SCREEN (BEAKER) (test code = Nonreactive Nonreactive 420) [id number] 11:24:00 Test Item Value Reference Range Interpretation Comments PROSTATE SPECIFIC ANTIGEN (BEAKER) 0.5 ng/mL 0.0-4.0 (test code = 844) HEPATITIS B SURFACE [id number] 11:02:00 Test Item Value Reference Range Interpretation Comments HEPATITIS B SURFACE ANTIGEN (2) Nonreactive Nonreactive (BEAKER) (test code = 2585) HIV-1 ANTIGEN WITH HIV-1/2 [id number] 11:02:00 Test Item Value Reference Range Interpretation Comments HIV-1 ANTIGEN WITH HIV 1\\T\\2 Nonreactive Nonreactive ANTIBODY (2) (BEAKER) (test code = 2586) T4, [id number] 10:40:00 Test Item Value Reference Range Interpretation Comments FREE T4 (BEAKER) (test code = 655) 1.08 ng/dL 0.70-1.48 [id number] 10:40:00 Test Item Value Reference Range Interpretation Comments THYROID STIMULATING HORMONE 1.68 uIU/mL 0.35-4.94 (BEAKER) (test code = 772) VITAMIN D, [id number] 10:40:00 Test Item Value Reference Range Interpretation Comments VITAMIN D 25-OH (BEAKER) (test 10.7 ng/mL 6.6-49.9 code = 2764) Effective 08/29/2017: Reference Range ChangeNew: 6.6-49.9 ng/mL Previous: 13.0-47.8 ng/mLRecommended Vitamin D Target Range: 30.0-40.0 ng/mLPREALBUMIN 2017-08-30 10:39:00 Test Item Value Reference Range Interpretation Comments PREALBUMIN (BEAKER) (test code = 16 mg/dL 14-45 586) IRON, [id number] 10:39:00 Test Item Value Reference Range Interpretation Comments IRON (BEAKER) (test code = 547) 50 ug/dL 40-160 [id number] 10:39:00 Test Item Value Reference Range Interpretation Comments FERRITIN (BEAKER) (test code = 361) 16 ng/mL 5-275 [id number] 10:26:00 Test Item Value Reference Range Interpretation Comments TRANSFERRIN (BEAKER) (test code = 358 mg/dL 174-382 541) B-TYPE NATRIURETIC FACTOR (BNP)2017-08-30 10:25:00 Test Item Value Reference Range Interpretation Comments B-TYPE NATRIURETIC PEPTIDE (BEAKER) 287 pg/mL 0-100 H (test code = 700) URIC [id number] 10:21:00 Test Item Value Reference Range Interpretation Comments URIC ACID (BEAKER) (test code = 8.1 mg/dL 2.6-7.2 H 773) [id number] 10:21:00 Test Item Value Reference Range Interpretation Comments MAGNESIUM (BEAKER) (test code = 1.7 mg/dL 1.6-2.6 627) [id number] 10:21:00 Test Item Value Reference Range Interpretation Comments PHOSPHORUS (BEAKER) (test code = 2.9 mg/dL 2.3-4.7 604) BASIC METABOLIC [id number] 10:21:00 Test Item Value Reference Range Interpretation Comments SODIUM (BEAKER) 139 meq/L 136-145 (test code = 381) POTASSIUM (BEAKER) 4.3 meq/L 3.5-5.1 (test code = 379) CHLORIDE (BEAKER) 105 meq/L 98-107 (test code = 382) CO2 (BEAKER) (test 28 meq/L 22-29 code = 355) BLOOD UREA NITROGEN 27 mg/dL 7-21 H (BEAKER) (test code = 354) CREATININE (BEAKER) 1.11 mg/dL 0.57-1.25 (test code = 358) GLUCOSE RANDOM 130 mg/dL 70-105 H (BEAKER) (test code = 652) CALCIUM (BEAKER) 9.0 mg/dL 8.4-10.2 (test code = 697) EGFR (BEAKER) (test 69 mL/min/1.73 ESTIMA JENIFER GFR IS code = 1092) sq m NOT ACCURATE CREATININE CLEARANCE IN PREDICTING GLOMERULAR FILTRATION RATE . ESTIMATED GFR I S NOT APPLICABLE FOR DIALYSIS PATIEN TS. LIPID [id number] 10:21:00 Test Item Value Reference Range Interpretation Comments TRIGLYCERIDES (BEAKER) (test code = 128 mg/dL 540) CHOLESTEROL (BEAKER) (test code = 147 mg/dL 631) HDL CHOLESTEROL (BEAKER) (test code 35 mg/dL = 976) LDL CHOLESTEROL CALCULATED (BEAKER) 86 mg/dL (test code = 633) Triglyceride Reference Range: Low Risk <150 Borderline 150-199 High Risk 200-499 Very High Risk >=500Cholesterol Reference Range: Low Risk <200 Borderline 200-239 High Risk >240HDL Cholesterol Reference Range: Low Risk >=60 High Risk <40LDL Cholesterol Reference Range: Optimal <100 Near Optimal 100-129 Borderline 130-159 High 160-189 Very High >=190HEPATIC FUNCTION [id number] 10:21:00 Test Item Value Reference Range Interpretation Comments TOTAL PROTEIN (BEAKER) (test code = 7.8 gm/dL 6.0-8.3 770) ALBUMIN (BEAKER) (test code = 1145) 3.7 g/dL 3.5-5.0 BILIRUBIN TOTAL (BEAKER) (test code 0.6 mg/dL 0.2-1.2 = 377) BILIRUBIN DIRECT (BEAKER) (test 0.3 mg/dL 0.1-0.5 code = 706) ALKALINE PHOSPHATASE (BEAKER) (test 111 U/L 40-150 code = 346) AST (SGOT) (BEAKER) (test code = 24 U/L 5-34 353) ALT (SGPT) (BEAKER) (test code = 28 U/L 6-55 347) [id number] 10:21:00 Test Item Value Reference Range Interpretation Comments AMYLASE (BEAKER) (test code = 349) 30 U/L 25-125 GAMMA GLUTAMYL TRANSFERASE (GGT)2017-08-30 10:21:00 Test Item Value Reference Range Interpretation Comments GAMMA GLUTAMYL TRANSFERASE (BEAKER) 347 U/L 9-64 H (test code = 364) LACTATE DEHYDROGENASE (LDH)2017-08-30 10:21:00 Test Item Value Reference Range Interpretation Comments LACTATE DEHYDROGENASE (BEAKER) (test 308 U/L 125-220 H code = 635) [id number] 10:21:00 Test Item Value Reference Range Interpretation Comments LIPASE (BEAKER) (test code = 749) 14 U/L 8-78 PLASMA FREE [id number] 10:14:00 Test Item Value Reference Range Interpretation Comments HEMOGLOBIN PLASMA (BEAKER) (test code < mg/dl 0.0-30.0 = 1054) [id number] 10:12:00 Test Item Value Reference Range Interpretation Comments PROTIME (BEAKER) (test code = 26.0 seconds 11.7-14.7 H 759) INR (BEAKER) (test code = 370) 2.4 <=5.9 PARTIAL THROMBOPLASTIN TIME 38.9 seconds 22.5-36.0 H (BEAKER) (test code = 760) RECOMMENDED COUMADIN/WARFARIN INR THERAPY RANGESSTANDARD DOSE: 2.0 - 3.0 Includes: PROPHYLAXIS forvenous thrombosis, systemic embolization; TREATMENT for venous thrombosis and/or pulmonary embolus.HIGH RISK: Target INR is 2.5-3.5 for patients with mechanical heart valves.PROTHROMBIN [id number] 10:11:00 Test Item Value Reference Range Interpretation Comments PROTIME (BEAKER) (test code = 26.0 seconds 11.7-14.7 H 759) INR (BEAKER) (test code = 370) 2.4 <=5.9 RECOMMENDED COUMADIN/WARFARIN INR THERAPY RANGESSTANDARD DOSE: 2.0 - 3.0 Includes: PROPHYLAXIS forvenous thrombosis, systemic embolization; TREATMENT for venous thrombosis and/or pulmonary embolus.HIGH RISK: Target INR is 2.5-3.5 for patients with mechanical heart valves.RETICULOCYTE [id number] 10:01:00 Test Item Value Reference Range Interpretation Comments RETICULOCYTE COUNT PCT (BEAKER) (test 2.4 % 0.5-1.8 H code = 575) CBC W/PLT COUNT & AUTO [id number] 10:01:00 Test Item Value Reference Range Interpretation Comments WHITE BLOOD CELL COUNT (BEAKER) 7.4 K/ L 3.5-10.5 (test code = 775) RED BLOOD CELL COUNT (BEAKER) 4.79 M/ L 4.63-6.08 (test code = 761) HEMOGLOBIN (BEAKER) (test code = 11.5 GM/DL 13.7-17.5 L 410) HEMATOCRIT (BEAKER) (test code = 36.9 % 40.1-51.0 L 411) MEAN CORPUSCULAR VOLUME (BEAKER) 77.0 fL 79.0-92.2 L (test code = 753) MEAN CORPUSCULAR HEMOGLOBIN 24.0 pg 25.7-32.2 L (BEAKER) (test code = 751) MEAN CORPUSCULAR HEMOGLOBIN CONC 31.2 GM/DL 32.3-36.5 L (BEAKER) (test code = 752) RED CELL DISTRIBUTION WIDTH 16.7 % 11.6-14.4 H (BEAKER) (test code = 412) PLATELET COUNT (BEAKER) (test 175 K/CU MM 150-450 code = 756) MEAN PLATELET VOLUME (BEAKER) 10.4 fL 9.4-12.4 (test code = 754) NUCLEATED RED BLOOD CELLS 0 /100 WBC 0-0 (BEAKER) (test code = 413) NEUTROPHILS RELATIVE PERCENT 68 % (BEAKER) (test code = 429) LYMPHOCYTES RELATIVE PERCENT 21 % (BEAKER) (test code = 430) MONOCYTES RELATIVE PERCENT 7 % (BEAKER) (test code = 431) EOSINOPHILS RELATIVE PERCENT 3 % (BEAKER) (test code = 432) BASOPHILS RELATIVE PERCENT 1 % (BEAKER) (test code = 437) NEUTROPHILS ABSOLUTE COUNT 4.97 K/ L 1.78-5.38 (BEAKER) (test code = 670) LYMPHOCYTES ABSOLUTE COUNT 1.56 K/ L 1.32-3.57 (BEAKER) (test code = 414) MONOCYTES ABSOLUTE COUNT (BEAKER) 0.50 K/ L 0.30-0.82 (test code = 415) EOSINOPHILS ABSOLUTE COUNT 0.20 K/ L 0.04-0.54 (BEAKER) (test code = 416) BASOPHILS ABSOLUTE COUNT (BEAKER) 0.08 K/ L 0.01-0.08 (test code = 417) IMMATURE GRANULOCYTES-RELATIVE 1 % 0-1 PERCENT (BEAKER) (test code = 2801) PLASMA FREE [id number] 11:32:00 Test Item Value Reference Range Interpretation Comments HEMOGLOBIN PLASMA (BEAKER) (test 30.0 mg/dl 0.0-30.0 code = 1054) [id number] 11:15:00 Test Item Value Reference Range Interpretation Comments MAGNESIUM (BEAKER) (test code = 1.9 mg/dL 1.6-2.6 627) BASIC METABOLIC [id number] 11:15:00 Test Item Value Reference Range Interpretation Comments SODIUM (BEAKER) 136 meq/L 136-145 (test code = 381) POTASSIUM (BEAKER) 4.6 meq/L 3.5-5.1 (test code = 379) CHLORIDE (BEAKER) 102 meq/L 98-107 (test code = 382) CO2 (BEAKER) (test 28 meq/L 22-29 code = 355) BLOOD UREA NITROGEN 24 mg/dL 7-21 H (BEAKER) (test code = 354) CREATININE (BEAKER) 1.22 mg/dL 0.57-1.25 (test code = 358) GLUCOSE RANDOM 143 mg/dL 70-105 H (BEAKER) (test code = 652) CALCIUM (BEAKER) 9.3 mg/dL 8.4-10.2 (test code = 697) EGFR (BEAKER) (test 62 mL/min/1.73 ESTIMA JENIFER GFR IS code = 1092) sq m NOT ACCURATE CREATININE CLEARANCE IN PREDICTING GLOMERULAR FILTRATION RATE . ESTIMATED GFR I S NOT APPLICABLE FOR DIALYSIS PATIEN TS. HEPATIC FUNCTION [id number] 11:15:00 Test Item Value Reference Range Interpretation Comments TOTAL PROTEIN (BEAKER) (test code = 7.9 gm/dL 6.0-8.3 770) ALBUMIN (BEAKER) (test code = 1145) 3.7 g/dL 3.5-5.0 BILIRUBIN TOTAL (BEAKER) (test code 0.5 mg/dL 0.2-1.2 = 377) BILIRUBIN DIRECT (BEAKER) (test 0.2 mg/dL 0.1-0.5 code = 706) ALKALINE PHOSPHATASE (BEAKER) (test 107 U/L 40-150 code = 346) AST (SGOT) (BEAKER) (test code = 26 U/L 5-34 353) ALT (SGPT) (BEAKER) (test code = 29 U/L 6-55 347) LACTATE DEHYDROGENASE (LDH)2017-08-03 11:15:00 Test Item Value Reference Range Interpretation Comments LACTATE DEHYDROGENASE (BEAKER) (test 258 U/L 125-220 H code = 635) [id number] 11:09:00 Test Item Value Reference Range Interpretation Comments PREALBUMIN (BEAKER) (test code = 17 mg/dL 14-45 586) PROTHROMBIN [id number] 11:03:00 Test Item Value Reference Range Interpretation Comments PROTIME (BEAKER) (test code = 22.5 seconds 11.7-14.7 H 759) INR (BEAKER) (test code = 370) 2.0 <=5.9 RECOMMENDED COUMADIN/WARFARIN INR THERAPY RANGESSTANDARD DOSE: 2.0 - 3.0 Includes: PROPHYLAXIS forvenous thrombosis, systemic embolization; TREATMENT for venous thrombosis and/or pulmonary embolus.HIGH RISK: Target INR is 2.5-3.5 for patients with mechanical heart valves.CBC W/PLT COUNT & AUTO DIFFERENTIAL 2017-08-03 10:55:00 Test Item Value Reference Range Interpretation Comments WHITE BLOOD CELL COUNT (BEAKER) 8.0 K/ L 3.5-10.5 (test code = 775) RED BLOOD CELL COUNT (BEAKER) 4.67 M/ L 4.63-6.08 (test code = 761) HEMOGLOBIN (BEAKER) (test code = 10.9 GM/DL 13.7-17.5 L 410) HEMATOCRIT (BEAKER) (test code = 35.9 % 40.1-51.0 L 411) MEAN CORPUSCULAR VOLUME (BEAKER) 76.9 fL 79.0-92.2 L (test code = 753) MEAN CORPUSCULAR HEMOGLOBIN 23.3 pg 25.7-32.2 L (BEAKER) (test code = 751) MEAN CORPUSCULAR HEMOGLOBIN CONC 30.4 GM/DL 32.3-36.5 L (BEAKER) (test code = 752) RED CELL DISTRIBUTION WIDTH 15.0 % 11.6-14.4 H (BEAKER) (test code = 412) PLATELET COUNT (BEAKER) (test 198 K/CU MM 150-450 code = 756) MEAN PLATELET VOLUME (BEAKER) 10.2 fL 9.4-12.4 (test code = 754) NUCLEATED RED BLOOD CELLS 0 /100 WBC 0-0 (BEAKER) (test code = 413) NEUTROPHILS RELATIVE PERCENT 69 % (BEAKER) (test code = 429) LYMPHOCYTES RELATIVE PERCENT 20 % (BEAKER) (test code = 430) MONOCYTES RELATIVE PERCENT 8 % (BEAKER) (test code = 431) EOSINOPHILS RELATIVE PERCENT 2 % (BEAKER) (test code = 432) BASOPHILS RELATIVE PERCENT 1 % (BEAKER) (test code = 437) NEUTROPHILS ABSOLUTE COUNT 5.50 K/ L 1.78-5.38 H (BEAKER) (test code = 670) LYMPHOCYTES ABSOLUTE COUNT 1.60 K/ L 1.32-3.57 (BEAKER) (test code = 414) MONOCYTES ABSOLUTE COUNT (BEAKER) 0.61 K/ L 0.30-0.82 (test code = 415) EOSINOPHILS ABSOLUTE COUNT 0.18 K/ L 0.04-0.54 (BEAKER) (test code = 416) BASOPHILS ABSOLUTE COUNT (BEAKER) 0.07 K/ L 0.01-0.08 (test code = 417) IMMATURE GRANULOCYTES-RELATIVE 1 % 0-1 PERCENT (BEAKER) (test code = 2801) [id number] 12:32:00 Test Item Value Reference Range Interpretation Comments Coagulation (test 29.9 SEC 12.0-14.7 H code = PT-T) Coagulation (test 2.7 ATTENTION: code = INR) READ CAREFULLY-- The recommended the rapeutic ranges for oral anticoagulanttr eatments are: ------ Low Intensity: 1.5 - 2.0 Moderate In tensity: 2.0 - 3.0 High Intensity (1): 2.5 - 3.5 High In tensity (2): 3.0 - 4. 0 CRITICAL: > 4.0 CBC W/PLT COUNT & AUTO [id number] 11:34:00 Test Item Value Reference Range Interpretation Comments WHITE BLOOD CELL COUNT (BEAKER) 6.9 K/ L 4.0-10.0 (test code = 775) RED BLOOD CELL COUNT (BEAKER) 4.50 M/ L 4.20-5.80 (test code = 761) HEMOGLOBIN (BEAKER) (test code = 11.2 GM/DL 13.0-16.8 L 410) HEMATOCRIT (BEAKER) (test code = 35.4 % 40.0-50.0 L 411) MEAN CORPUSCULAR VOLUME (BEAKER) 78.8 fL 82.0-98.0 L (test code = 753) MEAN CORPUSCULAR HEMOGLOBIN 25.0 pg 27.0-33.0 L (BEAKER) (test code = 751) MEAN CORPUSCULAR HEMOGLOBIN CONC 31.7 GM/DL 32.0-36.0 L (BEAKER) (test code = 752) RED CELL DISTRIBUTION WIDTH 14.1 % 10.3-14.2 (BEAKER) (test code = 412) PLATELET COUNT (BEAKER) (test 175 K/CU MM 150-430 code = 756) MEAN PLATELET VOLUME (BEAKER) 8.0 fL 6.5-10.5 (test code = 754) NUCLEATED RED BLOOD CELLS 0 /100 WBC 0-0 (BEAKER) (test code = 413) NEUTROPHILS RELATIVE PERCENT 65 % (BEAKER) (test code = 429) LYMPHOCYTES RELATIVE PERCENT 25 % (BEAKER) (test code = 430) MONOCYTES RELATIVE PERCENT 8 % (BEAKER) (test code = 431) EOSINOPHILS RELATIVE PERCENT 2 % (BEAKER) (test code = 432) BASOPHILS RELATIVE PERCENT 1 % (BEAKER) (test code = 437) NEUTROPHILS ABSOLUTE COUNT 4.46 K/ L 1.80-8.00 (BEAKER) (test code = 670) LYMPHOCYTES ABSOLUTE COUNT 1.71 K/ L 1.48-4.50 (BEAKER) (test code = 414) MONOCYTES ABSOLUTE COUNT (BEAKER) 0.55 K/ L 0.00-1.30 (test code = 415) EOSINOPHILS ABSOLUTE COUNT 0.14 K/ L 0.00-0.50 (BEAKER) (test code = 416) BASOPHILS ABSOLUTE COUNT (BEAKER) 0.05 K/ L 0.00-0.20 (test code = 417) 0.00PLASMA FREE [id number] 11:25:00 Test Item Value Reference Range Interpretation Comments HEMOGLOBIN PLASMA (BEAKER) (test code < mg/dl 0.0-30.0 = 1054) [id number] 11:11:00 Test Item Value Reference Range Interpretation Comments PREALBUMIN (BEAKER) (test code = 17 mg/dL 14-45 586) [id number] 11:04:00 Test Item Value Reference Range Interpretation Comments MAGNESIUM (BEAKER) (test code = 1.7 mg/dL 1.6-2.6 627) BASIC METABOLIC [id number] 11:04:00 Test Item Value Reference Range Interpretation Comments SODIUM (BEAKER) 138 meq/L 136-145 (test code = 381) POTASSIUM (BEAKER) 4.3 meq/L 3.5-5.1 (test code = 379) CHLORIDE (BEAKER) 100 meq/L 98-107 (test code = 382) CO2 (BEAKER) (test 29 meq/L 22-29 code = 355) BLOOD UREA NITROGEN 26 mg/dL 7-21 H (BEAKER) (test code = 354) CREATININE (BEAKER) 1.24 mg/dL 0.57-1.25 (test code = 358) GLUCOSE RANDOM 211 mg/dL 70-105 H (BEAKER) (test code = 652) CALCIUM (BEAKER) 8.9 mg/dL 8.4-10.2 (test code = 697) EGFR (BEAKER) (test 61 mL/min/1.73 ESTIMA JENIFER GFR IS code = 1092) sq m NOT ACCURATE CREATININE CLEARANCE IN PREDICTING GLOMERULAR FILTRATION RATE . ESTIMATED GFR I S NOT APPLICABLE FOR DIALYSIS PATIEN TS. HEPATIC FUNCTION [id number] 11:04:00 Test Item Value Reference Range Interpretation Comments TOTAL PROTEIN (BEAKER) (test code = 7.4 gm/dL 6.0-8.3 770) ALBUMIN (BEAKER) (test code = 1145) 3.6 g/dL 3.5-5.0 BILIRUBIN TOTAL (BEAKER) (test code 0.6 mg/dL 0.2-1.2 = 377) BILIRUBIN DIRECT (BEAKER) (test 0.3 mg/dL 0.1-0.5 code = 706) ALKALINE PHOSPHATASE (BEAKER) (test 117 U/L 40-150 code = 346) AST (SGOT) (BEAKER) (test code = 25 U/L 5-34 353) ALT (SGPT) (BEAKER) (test code = 40 U/L 6-55 347) LACTATE DEHYDROGENASE (LDH)2017-06-04 11:04:00 Test Item Value Reference Range Interpretation Comments LACTATE DEHYDROGENASE (BEAKER) (test 253 U/L 125-220 H code = 635) PROTHROMBIN [id number] 10:54:00 Test Item Value Reference Range Interpretation Comments PROTIME (BEAKER) (test code = 20.9 seconds 11.7-14.7 H 759) INR (BEAKER) (test code = 370) 1.8 <=5.9 RECOMMENDED COUMADIN/WARFARIN INR THERAPY RANGESSTANDARD DOSE: 2.0 - 3.0 Includes: PROPHYLAXIS forvenous thrombosis, systemic embolization; TREATMENT for venous thrombosis and/or pulmonary embolus.HIGH RISK: Target INR is 2.5-3.5 for patients with mechanical heart valves.T4, [id number] 14:16:00 Test Item Value Reference Range Interpretation Comments FREE T4 (BEAKER) (test code = 655) 1.04 ng/dL 0.70-1.48 [id number] 14:16:00 Test Item Value Reference Range Interpretation Comments THYROID STIMULATING HORMONE 1.79 uIU/mL 0.35-4.94 (BEAKER) (test code = 772) [id number] 12:33:00 Test Item Value Reference Range Interpretation Comments PREALBUMIN (BEAKER) (test code = 18 mg/dL 14-45 586) [id number] 11:48:00 Test Item Value Reference Range Interpretation Comments MAGNESIUM (BEAKER) (test code = 1.9 mg/dL 1.6-2.6 627) BASIC METABOLIC [id number] 11:48:00 Test Item Value Reference Range Interpretation Comments SODIUM (BEAKER) 140 meq/L 136-145 (test code = 381) POTASSIUM (BEAKER) 4.5 meq/L 3.5-5.1 (test code = 379) CHLORIDE (BEAKER) 103 meq/L 98-107 (test code = 382) CO2 (BEAKER) (test 30 meq/L 22-29 H code = 355) BLOOD UREA NITROGEN 30 mg/dL 7-21 H (BEAKER) (test code = 354) CREATININE (BEAKER) 1.35 mg/dL 0.57-1.25 H (test code = 358) GLUCOSE RANDOM 164 mg/dL 70-105 H (BEAKER) (test code = 652) CALCIUM (BEAKER) 8.9 mg/dL 8.4-10.2 (test code = 697) EGFR (BEAKER) (test 55 mL/min/1.73 ESTIMA JENIFER GFR IS code = 1092) sq m NOT ACCURATE CREATININE CLEARANCE IN PREDICTING GLOMERULAR FILTRATION RATE . ESTIMATED GFR I S NOT APPLICABLE FOR DIALYSIS PATIEN TS. HEPATIC FUNCTION [id number] 11:48:00 Test Item Value Reference Range Interpretation Comments TOTAL PROTEIN (BEAKER) (test code = 7.4 gm/dL 6.0-8.3 770) ALBUMIN (BEAKER) (test code = 1145) 3.5 g/dL 3.5-5.0 BILIRUBIN TOTAL (BEAKER) (test code 0.5 mg/dL 0.2-1.2 = 377) BILIRUBIN DIRECT (BEAKER) (test 0.2 mg/dL 0.1-0.5 code = 706) ALKALINE PHOSPHATASE (BEAKER) (test 119 U/L 40-150 code = 346) AST (SGOT) (BEAKER) (test code = 27 U/L 5-34 353) ALT (SGPT) (BEAKER) (test code = 38 U/L 6-55 347) LACTATE DEHYDROGENASE (LDH)2017-04-20 11:48:00 Test Item Value Reference Range Interpretation Comments LACTATE DEHYDROGENASE (BEAKER) (test 263 U/L 125-220 H code = 635) PROTHROMBIN [id number] 11:34:00 Test Item Value Reference Range Interpretation Comments PROTIME (BEAKER) (test code = 26.7 seconds 11.7-14.7 H 759) INR (BEAKER) (test code = 370) 2.5 <=5.9 RECOMMENDED COUMADIN/WARFARIN INR THERAPY RANGESSTANDARD DOSE: 2.0 - 3.0 Includes: PROPHYLAXIS forvenous thrombosis, systemic embolization; TREATMENT for venous thrombosis and/or pulmonary embolus.HIGH RISK: Target INR is 2.5-3.5 for patients with mechanical heart valves.PLASMA FREE [id number] 11:34:00 Test Item Value Reference Range Interpretation Comments HEMOGLOBIN PLASMA (BEAKER) (test 30.0 mg/dl 0.0-30.0 code = 1054) CBC W/PLT COUNT & AUTO [id number] 11:32:00 Test Item Value Reference Range Interpretation Comments WHITE BLOOD CELL COUNT (BEAKER) 8.3 K/ L 4.0-10.0 (test code = 775) RED BLOOD CELL COUNT (BEAKER) 4.53 M/ L 4.20-5.80 (test code = 761) HEMOGLOBIN (BEAKER) (test code = 11.7 GM/DL 13.0-16.8 L 410) HEMATOCRIT (BEAKER) (test code = 36.3 % 40.0-50.0 L 411) MEAN CORPUSCULAR VOLUME (BEAKER) 80.0 fL 82.0-98.0 L (test code = 753) MEAN CORPUSCULAR HEMOGLOBIN 25.7 pg 27.0-33.0 L (BEAKER) (test code = 751) MEAN CORPUSCULAR HEMOGLOBIN CONC 32.2 GM/DL 32.0-36.0 (BEAKER) (test code = 752) RED CELL DISTRIBUTION WIDTH 15.6 % 10.3-14.2 H (BEAKER) (test code = 412) PLATELET COUNT (BEAKER) (test 180 K/CU MM 150-430 code = 756) MEAN PLATELET VOLUME (BEAKER) 7.8 fL 6.5-10.5 (test code = 754) NUCLEATED RED BLOOD CELLS 0 /100 WBC 0-0 (BEAKER) (test code = 413) NEUTROPHILS RELATIVE PERCENT 63 % (BEAKER) (test code = 429) LYMPHOCYTES RELATIVE PERCENT 27 % (BEAKER) (test code = 430) MONOCYTES RELATIVE PERCENT 8 % (BEAKER) (test code = 431) EOSINOPHILS RELATIVE PERCENT 2 % (BEAKER) (test code = 432) BASOPHILS RELATIVE PERCENT 1 % (BEAKER) (test code = 437) NEUTROPHILS ABSOLUTE COUNT 5.19 K/ L 1.80-8.00 (BEAKER) (test code = 670) LYMPHOCYTES ABSOLUTE COUNT 2.22 K/ L 1.48-4.50 (BEAKER) (test code = 414) MONOCYTES ABSOLUTE COUNT (BEAKER) 0.65 K/ L 0.00-1.30 (test code = 415) EOSINOPHILS ABSOLUTE COUNT 0.17 K/ L 0.00-0.50 (BEAKER) (test code = 416) BASOPHILS ABSOLUTE COUNT (BEAKER) 0.07 K/ L 0.00-0.20 (test code = 417) [id number] 10:44:00 Test Item Value Reference Range Interpretation Comments FERRITIN (BEAKER) (test code = 361) 26 ng/mL 5-275 Effective 10/06/2014: Reference Range ChangeNew: Male 5-275 Previous: Male 22-322 Female 5-275 Female 10-291PLASMA FREE HEMOGLOBIN 2017-03-16 10:28:00 Test Item Value Reference Range Interpretation Comments HEMOGLOBIN PLASMA (BEAKER) (test code < mg/dl 0.0-30.0 = 1054) [id number] 10:23:00 Test Item Value Reference Range Interpretation Comments PREALBUMIN (BEAKER) (test code = 18 mg/dL 14-45 586) IRON, TIBC, % SAT. (WITHOUT FERRITIN)2017-03-16 10:23:00 Test Item Value Reference Range Interpretation Comments IRON (BEAKER) (test code = 547) 52 ug/dL 40-160 TOTAL IRON BINDING CAPACITY 413 ug/dL 250-450 (BEAKER) (test code = 769) IRON % SATURATION (2) (BEAKER) 13 % 20-55 L (test code = 2590) [id number] 10:22:00 Test Item Value Reference Range Interpretation Comments MAGNESIUM (BEAKER) (test code = 1.8 mg/dL 1.6-2.6 627) BASIC METABOLIC [id number] 10:22:00 Test Item Value Reference Range Interpretation Comments SODIUM (BEAKER) 132 meq/L 136-145 L (test code = 381) POTASSIUM (BEAKER) 4.5 meq/L 3.5-5.1 (test code = 379) CHLORIDE (BEAKER) 97 meq/L 98-107 L (test code = 382) CO2 (BEAKER) (test 25 meq/L 22-29 code = 355) BLOOD UREA NITROGEN 28 mg/dL 7-21 H (BEAKER) (test code = 354) CREATININE (BEAKER) 1.40 mg/dL 0.57-1.25 H (test code = 358) GLUCOSE RANDOM 278 mg/dL 70-105 H (BEAKER) (test code = 652) CALCIUM (BEAKER) 9.1 mg/dL 8.4-10.2 (test code = 697) EGFR (BEAKER) (test 53 mL/min/1.73 ESTIMA JENIFER GFR IS code = 1092) sq m NOT ACCURATE CREATININE CLEARANCE IN PREDICTING GLOMERULAR FILTRATION RATE . ESTIMATED GFR I S NOT APPLICABLE FOR DIALYSIS PATIEN TS. LIPID [id number] 10:22:00 Test Item Value Reference Range Interpretation Comments TRIGLYCERIDES (BEAKER) (test code = 227 mg/dL 540) CHOLESTEROL (BEAKER) (test code = 174 mg/dL 631) HDL CHOLESTEROL (BEAKER) (test code 32 mg/dL = 976) LDL CHOLESTEROL CALCULATED (BEAKER) 97 mg/dL (test code = 633) Triglyceride Reference Range: Low Risk <150 Borderline 150-199 High Risk 200-499 Very High Risk >=500Cholesterol Reference Range: Low Risk <200 Borderline 200-239 High Risk >240HDL Cholesterol Reference Range: Low Risk >=60 High Risk <40LDL Cholesterol Reference Range: Optimal <100 Near Optimal 100-129 Borderline 130-159 High 160-189 Very High >=190HEPATIC FUNCTION [id number] 10:22:00 Test Item Value Reference Range Interpretation Comments TOTAL PROTEIN (BEAKER) (test code = 7.4 gm/dL 6.0-8.3 770) ALBUMIN (BEAKER) (test code = 1145) 3.5 g/dL 3.5-5.0 BILIRUBIN TOTAL (BEAKER) (test code 0.4 mg/dL 0.2-1.2 = 377) BILIRUBIN DIRECT (BEAKER) (test 0.2 mg/dL 0.1-0.5 code = 706) ALKALINE PHOSPHATASE (BEAKER) (test 126 U/L 40-150 code = 346) AST (SGOT) (BEAKER) (test code = 23 U/L 5-34 353) ALT (SGPT) (BEAKER) (test code = 33 U/L 6-55 347) LACTATE DEHYDROGENASE (LDH)2017-03-16 10:22:00 Test Item Value Reference Range Interpretation Comments LACTATE DEHYDROGENASE (BEAKER) (test 274 U/L 125-220 H code = 635) PROTHROMBIN [id number] 10:12:00 Test Item Value Reference Range Interpretation Comments PROTIME (BEAKER) (test code = 20.8 seconds 11.7-14.7 H 759) INR (BEAKER) (test code = 370) 1.8 <=5.9 RECOMMENDED COUMADIN/WARFARIN INR THERAPY RANGESSTANDARD DOSE: 2.0 - 3.0 Includes: PROPHYLAXIS forvenous thrombosis, systemic embolization; TREATMENT for venous thrombosis and/or pulmonary embolus.HIGH RISK: Target INR is 2.5-3.5 for patients with mechanical heart valves.CBC W/PLT COUNT & AUTO DIFFERENTIAL 2017-03-16 10:06:00 Test Item Value Reference Range Interpretation Comments WHITE BLOOD CELL COUNT (BEAKER) 8.1 K/ L 4.0-10.0 (test code = 775) RED BLOOD CELL COUNT (BEAKER) 4.55 M/ L 4.20-5.80 (test code = 761) HEMOGLOBIN (BEAKER) (test code = 12.3 GM/DL 13.0-16.8 L 410) HEMATOCRIT (BEAKER) (test code = 36.9 % 40.0-50.0 L 411) MEAN CORPUSCULAR VOLUME (BEAKER) 81.2 fL 82.0-98.0 L (test code = 753) MEAN CORPUSCULAR HEMOGLOBIN 26.9 pg 27.0-33.0 L (BEAKER) (test code = 751) MEAN CORPUSCULAR HEMOGLOBIN CONC 33.2 GM/DL 32.0-36.0 (BEAKER) (test code = 752) RED CELL DISTRIBUTION WIDTH 15.1 % 10.3-14.2 H (BEAKER) (test code = 412) PLATELET COUNT (BEAKER) (test 171 K/CU MM 150-430 code = 756) MEAN PLATELET VOLUME (BEAKER) 8.4 fL 6.5-10.5 (test code = 754) NUCLEATED RED BLOOD CELLS 0 /100 WBC 0-0 (BEAKER) (test code = 413) NEUTROPHILS RELATIVE PERCENT 61 % (BEAKER) (test code = 429) LYMPHOCYTES RELATIVE PERCENT 29 % (BEAKER) (test code = 430) MONOCYTES RELATIVE PERCENT 8 % (BEAKER) (test code = 431) EOSINOPHILS RELATIVE PERCENT 2 % (BEAKER) (test code = 432) BASOPHILS RELATIVE PERCENT 1 % (BEAKER) (test code = 437) NEUTROPHILS ABSOLUTE COUNT 4.98 K/ L 1.80-8.00 (BEAKER) (test code = 670) LYMPHOCYTES ABSOLUTE COUNT 2.32 K/ L 1.48-4.50 (BEAKER) (test code = 414) MONOCYTES ABSOLUTE COUNT (BEAKER) 0.62 K/ L 0.00-1.30 (test code = 415) EOSINOPHILS ABSOLUTE COUNT 0.15 K/ L 0.00-0.50 (BEAKER) (test code = 416) BASOPHILS ABSOLUTE COUNT (BEAKER) 0.05 K/ L 0.00-0.20 (test code = 417) [id number] 10:31:00 Test Item Value Reference Range Interpretation Comments PREALBUMIN (BEAKER) (test code = 17 mg/dL 14-45 586) IRON, TIBC, % SAT. (WITHOUT FERRITIN)2017-02-02 10:31:00 Test Item Value Reference Range Interpretation Comments IRON (BEAKER) (test code = 547) 271 ug/dL 40-160 H TOTAL IRON BINDING CAPACITY 351 ug/dL 250-450 (BEAKER) (test code = 769) IRON % SATURATION (2) (BEAKER) 77 % 20-55 H (test code = 2590) [id number] 10:24:00 Test Item Value Reference Range Interpretation Comments FERRITIN (BEAKER) (test code = 361) 45 ng/mL 5-275 Effective 10/06/2014: Reference Range ChangeNew: Male 5-275 Previous: Male 22-322 Female 5-275 Female [id number] 10:05:00 Test Item Value Reference Range Interpretation Comments MAGNESIUM (BEAKER) (test code = 1.7 mg/dL 1.6-2.6 627) BASIC METABOLIC [id number] 10:05:00 Test Item Value Reference Range Interpretation Comments SODIUM (BEAKER) 137 meq/L 136-145 (test code = 381) POTASSIUM (BEAKER) 3.6 meq/L 3.5-5.1 (test code = 379) CHLORIDE (BEAKER) 98 meq/L 98-107 (test code = 382) CO2 (BEAKER) (test 29 meq/L 22-29 code = 355) BLOOD UREA NITROGEN 16 mg/dL 7-21 (BEAKER) (test code = 354) CREATININE (BEAKER) 1.31 mg/dL 0.57-1.25 H (test code = 358) GLUCOSE RANDOM 284 mg/dL 70-105 H (BEAKER) (test code = 652) CALCIUM (BEAKER) 8.7 mg/dL 8.4-10.2 (test code = 697) EGFR (BEAKER) (test 57 mL/min/1.73 ESTIMA JENIFER GFR IS code = 1092) sq m NOT ACCURATE CREATININE CLEARANCE IN PREDICTING GLOMERULAR FILTRATION RATE . ESTIMATED GFR I S NOT APPLICABLE FOR DIALYSIS PATIEN TS. HEPATIC FUNCTION [id number] 10:05:00 Test Item Value Reference Range Interpretation Comments TOTAL PROTEIN (BEAKER) (test code = 7.4 gm/dL 6.0-8.3 770) ALBUMIN (BEAKER) (test code = 1145) 3.6 g/dL 3.5-5.0 BILIRUBIN TOTAL (BEAKER) (test code 0.6 mg/dL 0.2-1.2 = 377) BILIRUBIN DIRECT (BEAKER) (test 0.3 mg/dL 0.1-0.5 code = 706) ALKALINE PHOSPHATASE (BEAKER) (test 124 U/L 40-150 code = 346) AST (SGOT) (BEAKER) (test code = 24 U/L 5-34 353) ALT (SGPT) (BEAKER) (test code = 37 U/L 6-55 347) LACTATE DEHYDROGENASE (LDH)2017-02-02 10:05:00 Test Item Value Reference Range Interpretation Comments LACTATE DEHYDROGENASE (BEAKER) (test 258 U/L 125-220 H code = 635) PROTHROMBIN [id number] 10:01:00 Test Item Value Reference Range Interpretation Comments PROTIME (BEAKER) (test code = 19.9 seconds 11.7-14.7 H 759) INR (BEAKER) (test code = 370) 1.7 <=5.9 RECOMMENDED COUMADIN/WARFARIN INR THERAPY RANGESSTANDARD DOSE: 2.0 - 3.0 Includes: PROPHYLAXIS forvenous thrombosis, systemic embolization; TREATMENT for venous thrombosis and/or pulmonary embolus.HIGH RISK: Target INR is 2.5-3.5 for patients with mechanical heart valves.CBC W/PLT COUNT & AUTO DIFFERENTIAL 2017-02-02 09:49:00 Test Item Value Reference Range Interpretation Comments WHITE BLOOD CELL COUNT (BEAKER) 7.1 K/ L 4.0-10.0 (test code = 775) RED BLOOD CELL COUNT (BEAKER) 4.41 M/ L 4.20-5.80 (test code = 761) HEMOGLOBIN (BEAKER) (test code = 12.6 GM/DL 13.0-16.8 L 410) HEMATOCRIT (BEAKER) (test code = 39.9 % 40.0-50.0 L 411) MEAN CORPUSCULAR VOLUME (BEAKER) 90.4 fL 82.0-98.0 (test code = 753) MEAN CORPUSCULAR HEMOGLOBIN 28.6 pg 27.0-33.0 (BEAKER) (test code = 751) MEAN CORPUSCULAR HEMOGLOBIN CONC 31.6 GM/DL 32.0-36.0 L (BEAKER) (test code = 752) RED CELL DISTRIBUTION WIDTH 15.3 % 10.3-14.2 H (BEAKER) (test code = 412) PLATELET COUNT (BEAKER) (test 188 K/CU MM 150-430 code = 756) MEAN PLATELET VOLUME (BEAKER) 7.7 fL 6.5-10.5 (test code = 754) NUCLEATED RED BLOOD CELLS 0 /100 WBC 0-0 (BEAKER) (test code = 413) NEUTROPHILS RELATIVE PERCENT 68 % (BEAKER) (test code = 429) LYMPHOCYTES RELATIVE PERCENT 22 % (BEAKER) (test code = 430) MONOCYTES RELATIVE PERCENT 8 % (BEAKER) (test code = 431) EOSINOPHILS RELATIVE PERCENT 1 % (BEAKER) (test code = 432) BASOPHILS RELATIVE PERCENT 0 % (BEAKER) (test code = 437) NEUTROPHILS ABSOLUTE COUNT 4.82 K/ L 1.80-8.00 (BEAKER) (test code = 670) LYMPHOCYTES ABSOLUTE COUNT 1.54 K/ L 1.48-4.50 (BEAKER) (test code = 414) MONOCYTES ABSOLUTE COUNT (BEAKER) 0.60 K/ L 0.00-1.30 (test code = 415) EOSINOPHILS ABSOLUTE COUNT 0.11 K/ L 0.00-0.50 (BEAKER) (test code = 416) BASOPHILS ABSOLUTE COUNT (BEAKER) 0.02 K/ L 0.00-0.20 (test code = 417) 0.00POCT-GLUCOSE [id number] 09:10:00 Test Item Value Reference Range Interpretation Comments POC-GLUCOSE METER 221 mg/dL 70-[address] [facility] 6720 (BEAKER) (test code = J[facility]RET[place] Craig [facility] 1538) [id number] B-TYPE NATRIURETIC FACTOR (BNP)2017-01-19 02:46:00 Test Item Value Reference Range Interpretation Comments B-TYPE NATRIURETIC PEPTIDE (BEAKER) 254 pg/mL 0-100 H (test code = 700) [id number] 02:43:00 Test Item Value Reference Range Interpretation Comments LIPASE (BEAKER) (test code = 749) 19 U/L 8-78 [id number] 02:43:00 Test Item Value Reference Range Interpretation Comments AMYLASE (BEAKER) (test code = 349) 15 U/L 25-125 L BASIC METABOLIC [id number] 02:43:00 Test Item Value Reference Range Interpretation Comments SODIUM (BEAKER) 133 meq/L 136-145 L (test code = 381) POTASSIUM (BEAKER) 4.2 meq/L 3.5-5.1 (test code = 379) CHLORIDE (BEAKER) 94 meq/L 98-107 L (test code = 382) CO2 (BEAKER) (test 29 meq/L 22-29 code = 355) BLOOD UREA NITROGEN 18 mg/dL 7-21 (BEAKER) (test code = 354) CREATININE (BEAKER) 1.25 mg/dL 0.57-1.25 (test code = 358) GLUCOSE RANDOM 198 mg/dL 70-105 H (BEAKER) (test code = 652) CALCIUM (BEAKER) 8.9 mg/dL 8.4-10.2 (test code = 697) EGFR (BEAKER) (test 60 mL/min/1.73 ESTIMA JENIFER GFR IS code = 1092) sq m NOT ACCURATE CREATININE CLEARANCE IN PREDICTING GLOMERULAR FILTRATION RATE . ESTIMATED GFR I S NOT APPLICABLE FOR DIALYSIS PATIEN TS. HEPATIC FUNCTION [id number] 02:43:00 Test Item Value Reference Range Interpretation Comments TOTAL PROTEIN (BEAKER) (test code = 6.3 gm/dL 6.0-8.3 770) ALBUMIN (BEAKER) (test code = 1145) 3.0 g/dL 3.5-5.0 L BILIRUBIN TOTAL (BEAKER) (test code 0.6 mg/dL 0.2-1.2 = 377) BILIRUBIN DIRECT (BEAKER) (test 0.3 mg/dL 0.1-0.5 code = 706) ALKALINE PHOSPHATASE (BEAKER) (test 100 U/L 40-150 code = 346) AST (SGOT) (BEAKER) (test code = 31 U/L 5-34 353) ALT (SGPT) (BEAKER) (test code = 27 U/L 6-55 347) PROTHROMBIN [id number] 02:28:00 Test Item Value Reference Range Interpretation Comments PROTIME (BEAKER) (test code = 17.0 seconds 11.7-14.7 H 759) INR (BEAKER) (test code = 370) 1.4 <=5.9 RECOMMENDED COUMADIN/WARFARIN INR THERAPY RANGESSTANDARD DOSE: 2.0 - 3.0 Includes: PROPHYLAXIS forvenous thrombosis, systemic embolization; TREATMENT for venous thrombosis and/or pulmonary embolus.HIGH RISK: Target INR is 2.5-3.5 for patients with mechanical heart valves.[id number] 02:25:00 Test Item Value Reference Range Interpretation Comments PARTIAL THROMBOPLASTIN TIME 61.3 seconds 22.5-36.0 H ([facility]) (test code = 760) HEMOGLOBIN AND [id number] 02:22:00 Test Item Value Reference Range Interpretation Comments HEMOGLOBIN ([facility]) (test code = 9.3 GM/DL 13.0-16.8 L 410) HEMATOCRIT ([facility]) (test code = 27.2 % 40.0-50.0 L 411) POCT-GLUCOSE [id number] 20:47:00 Test Item Value Reference Range Interpretation Comments POC-GLUCOSE METER 171 mg/dL 70-110 H TESTED AT [place] [address] ([facility]) (test code = [place] 1538) [id number] 19:02:00 Test Item Value Reference Range Interpretation Comments PARTIAL THROMBOPLASTIN TIME 74.9 seconds 22.5-36.0 H ([facility]) (test code = 760) POCT-GLUCOSE [id number] 16:58:00 Test Item Value Reference Range Interpretation Comments POC-GLUCOSE METER 214 mg/dL 70-110 H TESTED AT [place] [address] ([facility]) (test code = [place] 1538) [address] POCT-GLUCOSE [id number] 12:21:00 Test Item Value Reference Range Interpretation Comments POC-GLUCOSE METER 193 mg/dL 70-110 H TESTED AT [place] [address] ([facility]) (test code = [place] 1538) [id number] 11:17:00 Test Item Value Reference Range Interpretation Comments PARTIAL THROMBOPLASTIN TIME 91.3 seconds 22.5-36.0 H ([facility]) (test code = 760) POCT-GLUCOSE [id number] 07:32:00 Test Item Value Reference Range Interpretation Comments POC-GLUCOSE METER 293 mg/dL 70-110 H TESTED AT [facility] 6720 (BEAKER) (test code = [place] 1538) [id number] HEMOGLOBIN AND [id number] 04:16:00 Test Item Value Reference Range Interpretation Comments HEMOGLOBIN (BEAKER) (test code = 9.4 GM/DL 13.0-16.8 L 410) HEMATOCRIT (BEAKER) (test code = 26.9 % 40.0-50.0 L 411) BASIC METABOLIC [id number] 03:51:00 Test Item Value Reference Range Interpretation Comments SODIUM (BEAKER) 133 meq/L 136-145 L (test code = 381) POTASSIUM (BEAKER) 4.0 meq/L 3.5-5.1 (test code = 379) CHLORIDE (BEAKER) 98 meq/L 98-107 (test code = 382) CO2 (BEAKER) (test 26 meq/L 22-29 code = 355) BLOOD UREA NITROGEN 23 mg/dL 7-21 H (BEAKER) (test code = 354) CREATININE (BEAKER) 1.29 mg/dL 0.57-1.25 H (test code = 358) GLUCOSE RANDOM 226 mg/dL 70-105 H (BEAKER) (test code = 652) CALCIUM (BEAKER) 7.8 mg/dL 8.4-10.2 L (test code = 697) EGFR (BEAKER) (test 58 mL/min/1.73 ESTIMA JENIFER GFR IS code = 1092) sq m NOT ACCURATE CREATININE CLEARANCE IN PREDICTING GLOMERULAR FILTRATION RATE . ESTIMATED GFR I S NOT APPLICABLE FOR DIALYSIS PATIRUMA TS. [id number] 03:44:00 Test Item Value Reference Range Interpretation Comments PARTIAL THROMBOPLASTIN TIME 91.0 seconds 22.5-36.0 H (BEAKER) (test code = 760) PROTHROMBIN [id number] 03:42:00 Test Item Value Reference Range Interpretation Comments PROTIME (BEAKER) (test code = 15.2 seconds 11.7-14.7 H 759) INR (BEAKER) (test code = 370) 1.2 <=5.9 RECOMMENDED COUMADIN/WARFARIN INR THERAPY RANGESSTANDARD DOSE: 2.0 - 3.0 Includes: PROPHYLAXIS forvenous thrombosis, systemic embolization; TREATMENT for venous thrombosis and/or pulmonary embolus.HIGH RISK: Target INR is 2.5-3.5 for patients with mechanical heart valves.POCT-GLUCOSE [id number] 22:02:00 Test Item Value Reference Range Interpretation Comments POC-GLUCOSE METER 270 mg/dL 70-110 H TESTED AT [place] [address] ([facility]) (test code = [place] 1538) [id number] 19:30:00 Test Item Value Reference Range Interpretation Comments PARTIAL THROMBOPLASTIN TIME 99.9 seconds 22.5-36.0 H ([facility]) (test code = 760) POCT-GLUCOSE [id number] 16:39:00 Test Item Value Reference Range Interpretation Comments POC-GLUCOSE METER 297 mg/dL 70-110 H TESTED AT [place] [address] ([facility]) (test code = CHULA Craig [facility] 1538) [address] [id number] 13:19:00 Test Item Value Reference Range Interpretation Comments PARTIAL THROMBOPLASTIN TIME 70.5 seconds 22.5-36.0 H ([facility]) (test code = 760) POCT-GLUCOSE [id number] 12:29:00 Test Item Value Reference Range Interpretation Comments POC-GLUCOSE METER 236 mg/dL 70-110 H TESTED AT [place] [address] ([facility]) (test code = [place] 1538) [id number] POCT-GLUCOSE [id number] 07:22:00 Test Item Value Reference Range Interpretation Comments POC-GLUCOSE METER 207 mg/dL 70-110 H TESTED AT [place] [address] ([facility]) (test code = BAN[facility] Rafa [facility] 1538) [id number] CBC W/PLT COUNT & AUTO [id number] 06:41:00 Test Item Value Reference Range Interpretation Comments WHITE BLOOD CELL COUNT (AKER) 7.7 K/ L 4.0-10.0 (test code = 775) RED BLOOD CELL COUNT (AKER) 3.00 M/ L 4.20-5.80 L (test code = 761) HEMOGLOBIN (BEAKER) (test code = 9.2 GM/DL 13.0-16.8 L 410) HEMATOCRIT ([facility]) (test code = 26.7 % 40.0-50.0 L 411) MEAN CORPUSCULAR VOLUME (AKER) 89.1 fL 82.0-98.0 (test code = 753) MEAN CORPUSCULAR HEMOGLOBIN 30.8 pg 27.0-33.0 (BEAKER) (test code = 751) MEAN CORPUSCULAR HEMOGLOBIN CONC 34.6 GM/DL 32.0-36.0 (BEAKER) (test code = 752) RED CELL DISTRIBUTION WIDTH 17.6 % 10.3-14.2 H (BEAKER) (test code = 412) PLATELET COUNT (BEAKER) (test 168 K/CU MM 150-430 code = 756) MEAN PLATELET VOLUME (BEAKER) 8.4 fL 6.5-10.5 (test code = 754) NUCLEATED RED BLOOD CELLS 0 /100 WBC 0-0 (BEAKER) (test code = 413) NEUTROPHILS RELATIVE PERCENT 79 % (BEAKER) (test code = 429) LYMPHOCYTES RELATIVE PERCENT 11 % (BEAKER) (test code = 430) MONOCYTES RELATIVE PERCENT 8 % (BEAKER) (test code = 431) EOSINOPHILS RELATIVE PERCENT 1 % (BEAKER) (test code = 432) BASOPHILS RELATIVE PERCENT 0 % (BEAKER) (test code = 437) NEUTROPHILS ABSOLUTE COUNT 6.09 K/ L 1.80-8.00 (BEAKER) (test code = 670) LYMPHOCYTES ABSOLUTE COUNT 0.86 K/ L 1.48-4.50 L (BEAKER) (test code = 414) MONOCYTES ABSOLUTE COUNT (BEAKER) 0.60 K/ L 0.00-1.30 (test code = 415) EOSINOPHILS ABSOLUTE COUNT 0.09 K/ L 0.00-0.50 (BEAKER) (test code = 416) BASOPHILS ABSOLUTE COUNT (BEAKER) 0.03 K/ L 0.00-0.20 (test code = 417) 0.00BASI METABOLIC [id number] 06:31:00 Test Item Value Reference Range Interpretation Comments SODIUM (BEAKER) 133 meq/L 136-145 L (test code = 381) POTASSIUM (BEAKER) 4.1 meq/L 3.5-5.1 (test code = 379) CHLORIDE (BEAKER) 100 meq/L 98-107 (test code = 382) CO2 (BEAKER) (test 24 meq/L 22-29 code = 355) BLOOD UREA NITROGEN 26 mg/dL 7-21 H (BEAKER) (test code = 354) CREATININE (BEAKER) 1.26 mg/dL 0.57-1.25 H (test code = 358) GLUCOSE RANDOM 221 mg/dL 70-105 H ([facility]) (test code = 652) CALCIUM ([facility]) 8.1 mg/dL 8.4-10.2 L (test code = 697) EGFR ([facility]) (test 60 mL/min/1.73 ESTIMA JENIFER GFR IS code = 1092) sq m NOT ACCURATE CREATININE CLEARANCE IN PREDICTING GLOMERULAR FILTRATION RATE . ESTIMATED GFR I S NOT APPLICABLE FOR DIALYSIS PATIEN TS. [id number] 06:20:00 Test Item Value Reference Range Interpretation Comments PARTIAL THROMBOPLASTIN TIME 33.9 seconds 22.5-36.0 ([facility]) (test code = 760) PROTHROMBIN [id number] 06:19:00 Test Item Value Reference Range Interpretation Comments PROTIME ([facility]) (test code = 14.6 seconds 11.7-14.7 759) INR ([facility]) (test code = 370) 1.2 <=5.9 RECOMMENDED COUMADIN/WARFARIN INR THERAPY RANGESSTANDARD DOSE: 2.0 - 3.0 Includes: PROPHYLAXIS forvenous thrombosis, systemic embolization; TREATMENT for venous thrombosis and/or pulmonary embolus.HIGH RISK: Target INR is 2.5-3.5 for patients with mechanical heart valves.POCT-GLUCOSE [id number] 22:35:00 Test Item Value Reference Range Interpretation Comments POC-GLUCOSE METER 239 mg/dL 70-110 H TESTED AT [place] [address] ([facility]) (test code = [facility] 1538) [id number] 20:55:00 Test Item Value Reference Range Interpretation Comments PARTIAL THROMBOPLASTIN TIME 28.7 seconds 22.5-36.0 ([facility]) (test code = 760) POCT-GLUCOSE [id number] 17:07:00 Test Item Value Reference Range Interpretation Comments POC-GLUCOSE METER 346 mg/dL 70-110 H TESTED AT [place] [address] ([facility]) (test code = [facility] 1538) [id number] POCT-GLUCOSE [id number] 17:00:00 Test Item Value Reference Range Interpretation Comments POC-GLUCOSE METER 306 mg/dL 70-110 H TESTED AT [place] [address] ([facility]) (test code = [facility] 1538) [address] POCT-GLUCOSE [id number] 12:11:00 Test Item Value Reference Range Interpretation Comments POC-GLUCOSE METER 268 mg/dL 70-[address] [facility] 6720 (BEAKER) (test code = CHULA Craig [facility] 1538) [address] POCT-GLUCOSE [id number] 08:17:00 Test Item Value Reference Range Interpretation Comments POC-GLUCOSE METER 276 mg/dL 70-[address] [facility] 6720 (BEAKER) (test code = CHULA Craig [facility] 1538) [address] CBC W/PLT COUNT & AUTO [id number] 06:10:00 Test Item Value Reference Range Interpretation Comments WHITE BLOOD CELL COUNT (BEAKER) 6.9 K/ L 4.0-10.0 (test code = 775) RED BLOOD CELL COUNT (BEAKER) 3.03 M/ L 4.20-5.80 L (test code = 761) HEMOGLOBIN (BEAKER) (test code = 9.3 GM/DL 13.0-16.8 L 410) HEMATOCRIT (BEAKER) (test code = 26.8 % 40.0-50.0 L 411) MEAN CORPUSCULAR VOLUME (BEAKER) 88.7 fL 82.0-98.0 (test code = 753) MEAN CORPUSCULAR HEMOGLOBIN 30.8 pg 27.0-33.0 (BEAKER) (test code = 751) MEAN CORPUSCULAR HEMOGLOBIN CONC 34.7 GM/DL 32.0-36.0 (BEAKER) (test code = 752) RED CELL DISTRIBUTION WIDTH 16.5 % 10.3-14.2 H (BEAKER) (test code = 412) PLATELET COUNT (BEAKER) (test 197 K/CU MM 150-430 code = 756) MEAN PLATELET VOLUME (BEAKER) 8.5 fL 6.5-10.5 (test code = 754) NUCLEATED RED BLOOD CELLS 0 /100 WBC 0-0 (BEAKER) (test code = 413) NEUTROPHILS RELATIVE PERCENT 66 % (BEAKER) (test code = 429) LYMPHOCYTES RELATIVE PERCENT 24 % (BEAKER) (test code = 430) MONOCYTES RELATIVE PERCENT 7 % (BEAKER) (test code = 431) EOSINOPHILS RELATIVE PERCENT 2 % (BEAKER) (test code = 432) BASOPHILS RELATIVE PERCENT 1 % (BEAKER) (test code = 437) NEUTROPHILS ABSOLUTE COUNT 4.52 K/ L 1.80-8.00 (BEAKER) (test code = 670) LYMPHOCYTES ABSOLUTE COUNT 1.64 K/ L 1.48-4.50 (BEAKER) (test code = 414) MONOCYTES ABSOLUTE COUNT (BEAKER) 0.50 K/ L 0.00-1.30 (test code = 415) EOSINOPHILS ABSOLUTE COUNT 0.15 K/ L 0.00-0.50 (BEAKER) (test code = 416) BASOPHILS ABSOLUTE COUNT (BEAKER) 0.05 K/ L 0.00-0.20 (test code = 417) [id number] 06:03:00 Test Item Value Reference Range Interpretation Comments MAGNESIUM (BEAKER) (test code = 1.7 mg/dL 1.6-2.6 627) BASIC METABOLIC [id number] 06:03:00 Test Item Value Reference Range Interpretation Comments SODIUM (BEAKER) 135 meq/L 136-145 L (test code = 381) POTASSIUM (BEAKER) 4.1 meq/L 3.5-5.1 (test code = 379) CHLORIDE (BEAKER) 104 meq/L 98-107 (test code = 382) CO2 (BEAKER) (test 22 meq/L 22-29 code = 355) BLOOD UREA NITROGEN 30 mg/dL 7-21 H (BEAKER) (test code = 354) CREATININE (BEAKER) 1.17 mg/dL 0.57-1.25 (test code = 358) GLUCOSE RANDOM 266 mg/dL 70-105 H (BEAKER) (test code = 652) CALCIUM (BEAKER) 8.4 mg/dL 8.4-10.2 (test code = 697) EGFR (BEAKER) (test 65 mL/min/1.73 ESTIMA JENIFER GFR IS code = 1092) sq m NOT ACCURATE CREATININE CLEARANCE IN PREDICTING GLOMERULAR FILTRATION RATE . ESTIMATED GFR I S NOT APPLICABLE FOR DIALYSIS PATIEN TS. LACTATE DEHYDROGENASE (LDH)2017-01-16 06:03:00 Test Item Value Reference Range Interpretation Comments LACTATE DEHYDROGENASE (BEAKER) (test 233 U/L 125-220 H code = 635) PROTHROMBIN [id number] 05:44:00 Test Item Value Reference Range Interpretation Comments PROTIME (BEAKER) (test code = 16.0 seconds 11.7-14.7 H 759) INR (BEAKER) (test code = 370) 1.3 <=5.9 RECOMMENDED COUMADIN/WARFARIN INR THERAPY RANGESSTANDARD DOSE: 2.0 - 3.0 Includes: PROPHYLAXIS forvenous thrombosis, systemic embolization; TREATMENT for venous thrombosis and/or pulmonary embolus.HIGH RISK: Target INR is 2.5-3.5 for patients with mechanical heart valves.POCT-GLUCOSE [id number] 21:29:00 Test Item Value Reference Range Interpretation Comments POC-GLUCOSE METER 192 mg/dL 70-110 H TESTED AT [place] [address] ([facility]) (test code = [place] 1538) [address] POCT-GLUCOSE [id number] 17:50:00 Test Item Value Reference Range Interpretation Comments POC-GLUCOSE METER 267 mg/dL 70-110 H TESTED AT [place] [address] ([facility]) (test code = [place] 1538) [id number] POCT-GLUCOSE [id number] 12:22:00 Test Item Value Reference Range Interpretation Comments POC-GLUCOSE METER 240 mg/dL 70-110 H TESTED AT [place] [address] ([facility]) (test code = [place] 1538) [id number] POCT-GLUCOSE [id number] 08:02:00 Test Item Value Reference Range Interpretation Comments POC-GLUCOSE METER 200 mg/dL 70-110 H TESTED AT [place] [address] ([facility]) (test code = CHULA Craig [facility] 1538) [address] [id number] 06:06:00 Test Item Value Reference Range Interpretation Comments MAGNESIUM (BEAKER) (test code = 2.1 mg/dL 1.6-2.6 627) BASIC METABOLIC [id number] 06:06:00 Test Item Value Reference Range Interpretation Comments SODIUM (BEAKER) 138 meq/L 136-145 (test code = 381) POTASSIUM (BEAKER) 5.1 meq/L 3.5-5.1 (test code = 379) CHLORIDE (BEAKER) 104 meq/L 98-107 (test code = 382) CO2 (BEAKER) (test 27 meq/L - code = 355) BLOOD UREA NITROGEN 37 mg/dL 7-21 H (BEAKER) (test code = 354) CREATININE (BEAKER) 1.14 mg/dL 0.57-1.25 (test code = 358) GLUCOSE RANDOM 168 mg/dL 70-105 H (BEAKER) (test code = 652) CALCIUM (BEAKER) 8.6 mg/dL 8.4-10.2 (test code = 697) EGFR (BEAKER) (test 67 mL/min/1.73 ESTIMA JENIFER GFR IS code = 1092) sq m NOT ACCURATE CREATININE CLEARANCE IN PREDICTING GLOMERULAR FILTRATION RATE . ESTIMATED GFR I S NOT APPLICABLE FOR DIALYSIS PATIEN TS. LACTATE DEHYDROGENASE (LDH)2017-01-15 06:06:00 Test Item Value Reference Range Interpretation Comments LACTATE DEHYDROGENASE (BEAKER) (test 205 U/L 125-220 code = 635) CBC W/PLT COUNT & AUTO [id number] 05:45:00 Test Item Value Reference Range Interpretation Comments WHITE BLOOD CELL COUNT (BEAKER) 8.3 K/ L 4.0-10.0 (test code = 775) RED BLOOD CELL COUNT (BEAKER) 3.15 M/ L 4.20-5.80 L (test code = 761) HEMOGLOBIN (BEAKER) (test code = 9.6 GM/DL 13.0-16.8 L 410) HEMATOCRIT (BEAKER) (test code = 27.5 % 40.0-50.0 L 411) MEAN CORPUSCULAR VOLUME (BEAKER) 87.2 fL 82.0-98.0 (test code = 753) MEAN CORPUSCULAR HEMOGLOBIN 30.6 pg 27.0-33.0 (BEAKER) (test code = 751) MEAN CORPUSCULAR HEMOGLOBIN CONC 35.1 GM/DL 32.0-36.0 (BEAKER) (test code = 752) RED CELL DISTRIBUTION WIDTH 17.0 % 10.3-14.2 H (BEAKER) (test code = 412) PLATELET COUNT (BEAKER) (test 180 K/CU MM 150-430 code = 756) MEAN PLATELET VOLUME (BEAKER) 8.3 fL 6.5-10.5 (test code = 754) NUCLEATED RED BLOOD CELLS 0 /100 WBC 0-0 (BEAKER) (test code = 413) NEUTROPHILS RELATIVE PERCENT 56 % (BEAKER) (test code = 429) LYMPHOCYTES RELATIVE PERCENT 34 % (BEAKER) (test code = 430) MONOCYTES RELATIVE PERCENT 7 % (BEAKER) (test code = 431) EOSINOPHILS RELATIVE PERCENT 2 % (BEAKER) (test code = 432) BASOPHILS RELATIVE PERCENT 1 % (BEAKER) (test code = 437) NEUTROPHILS ABSOLUTE COUNT 4.66 K/ L 1.80-8.00 (BEAKER) (test code = 670) LYMPHOCYTES ABSOLUTE COUNT 2.82 K/ L 1.48-4.50 (BEAKER) (test code = 414) MONOCYTES ABSOLUTE COUNT (BEAKER) 0.61 K/ L 0.00-1.30 (test code = 415) EOSINOPHILS ABSOLUTE COUNT 0.19 K/ L 0.00-0.50 (BEAKER) (test code = 416) BASOPHILS ABSOLUTE COUNT (BEAKER) 0.04 K/ L 0.00-0.20 (test code = 417) 0.00PROTHROMBIN [id number] 05:40:00 Test Item Value Reference Range Interpretation Comments PROTIME (BEAKER) (test code = 20.4 seconds 11.7-14.7 H 759) INR (BEAKER) (test code = 370) 1.8 <=5.9 RECOMMENDED COUMADIN/WARFARIN INR THERAPY RANGESSTANDARD DOSE: 2.0 - 3.0 Includes: PROPHYLAXIS forvenous thrombosis, systemic embolization; TREATMENT for venous thrombosis and/or pulmonary embolus.HIGH RISK: Target INR is 2.5-3.5 for patients with mechanical heart valves.POCT-GLUCOSE [id number] 21:35:00 Test Item Value Reference Range Interpretation Comments POC-GLUCOSE METER 203 mg/dL 70-[address] [facility] [address] ([facility]) (test code = JARRETKS Rafa [facility] 1538) [id number] CBC (HEMOGRAM ONLY)2017-01-14 17:58:00 Test Item Value Reference Range Interpretation Comments WHITE BLOOD CELL COUNT (BEAKER) 6.6 K/ L 4.0-10.0 (test code = 775) RED BLOOD CELL COUNT (BEAKER) 3.30 M/ L 4.20-5.80 L (test code = 761) HEMOGLOBIN (BEAKER) (test code = 10.2 GM/DL 13.0-16.8 L 410) HEMATOCRIT (AKER) (test code = 28.3 % 40.0-50.0 L 411) MEAN CORPUSCULAR VOLUME (BEAKER) 85.9 fL 82.0-98.0 (test code = 753) MEAN CORPUSCULAR HEMOGLOBIN 31.0 pg 27.0-33.0 (BEAKER) (test code = 751) MEAN CORPUSCULAR HEMOGLOBIN CONC 36.1 GM/DL 32.0-36.0 H (BEAKER) (test code = 752) RED CELL DISTRIBUTION WIDTH 16.9 % 10.3-14.2 H (BEAKER) (test code = 412) PLATELET COUNT (BEAKER) (test 176 K/CU MM 150-430 code = 756) MEAN PLATELET VOLUME (BEAKER) 8.6 fL 6.5-10.5 (test code = 754) NUCLEATED RED BLOOD CELLS 0 /100 WBC 0-0 (BEAKER) (test code = 413) 0.00POCT-GLUCOSE [id number] 17:34:00 Test Item Value Reference Range Interpretation Comments POC-GLUCOSE METER 310 mg/dL 70-[address] [facility] [address] (BEAKER) (test code = CHULA Craig [facility] 1538) [id number] CBC (HEMOGRAM ONLY)2017-01-14 14:39:00 Test Item Value Reference Range Interpretation Comments WHITE BLOOD CELL COUNT (BEAKER) 5.9 K/ L 4.0-10.0 (test code = 775) RED BLOOD CELL COUNT (BEAKER) 3.39 M/ L 4.20-5.80 L (test code = 761) HEMOGLOBIN (BEAKER) (test code = 10.7 GM/DL 13.0-16.8 L 410) HEMATOCRIT (BEAKER) (test code = 29.4 % 40.0-50.0 L 411) MEAN CORPUSCULAR VOLUME (BEAKER) 86.8 fL 82.0-98.0 (test code = 753) MEAN CORPUSCULAR HEMOGLOBIN 31.6 pg 27.0-33.0 (BEAKER) (test code = 751) MEAN CORPUSCULAR HEMOGLOBIN CONC 36.4 GM/DL 32.0-36.0 H (BEAKER) (test code = 752) RED CELL DISTRIBUTION WIDTH 15.3 % 10.3-14.2 H (BEAKER) (test code = 412) PLATELET COUNT (BEAKER) (test 190 K/CU MM 150-430 code = 756) MEAN PLATELET VOLUME (AKER) 8.3 fL 6.5-10.5 (test code = 754) NUCLEATED RED BLOOD CELLS 0 /100 WBC 0-0 (BEAKER) (test code = 413) POCT-GLUCOSE [id number] 13:02:00 Test Item Value Reference Range Interpretation Comments POC-GLUCOSE METER 239 mg/dL 70-110 H TESTED AT [place] [address] ([facility]) (test code = CHULA Craig [facility] 1538) [id number] POCT-GLUCOSE [id number] 09:30:00 Test Item Value Reference Range Interpretation Comments POC-GLUCOSE METER 303 mg/dL 70-110 H TESTED AT [place] [address] ([facility]) (test code = JARRETKS Rafa [facility] 1538) [id number] POCT-GLUCOSE [id number] 05:39:00 Test Item Value Reference Range Interpretation Comments POC-GLUCOSE METER 281 mg/dL 70-110 H TESTED AT [place] [address] ([facility]) (test code = JARRETKS Rafa [facility] 1538) [id number] 04:27:00 Test Item Value Reference Range Interpretation Comments FERRITIN ([facility]) (test code = 361) 40 ng/mL 5-275 Effective 10/06/2014: Reference Range ChangeNew: Male 5-275 Previous: Male 22-322 Female 5-275 Female 10-291LACTATE DEHYDROGENASE (LDH) 2017-01-14 04:17:00 Test Item Value Reference Range Interpretation Comments LACTATE DEHYDROGENASE 253 U/L 125-220 H Specim en slightly (BEAKER) (test code = hemoly zed 635) [id number] 04:14:00 Test Item Value Reference Range Interpretation Comments MAGNESIUM (BEAKER) 1.8 mg/dL 1.6-2.6 Specimen slightly (test code = 627) hemolyzed BASIC METABOLIC [id number] 04:14:00 Test Item Value Reference Range Interpretation Comments SODIUM (BEAKER) 133 meq/L 136-145 L (test code = 381) POTASSIUM (BEAKER) 4.5 meq/L 3.5-5.1 Specimen slightly (test code = 379) hemolyzed CHLORIDE (BEAKER) 102 meq/L 98-107 (test code = 382) CO2 (BEAKER) (test 23 meq/L 22-29 code = 355) BLOOD UREA NITROGEN 37 mg/dL 7-21 H (BEAKER) (test code = 354) CREATININE (BEAKER) 1.21 mg/dL 0.57-1.25 Specimen slightly (test code = 358) hemolyzed GLUCOSE RANDOM 342 mg/dL 70-105 H (BEAKER) (test code = 652) CALCIUM (BEAKER) 8.4 mg/dL 8.4-10.2 (test code = 697) EGFR (BEAKER) (test 62 mL/min/1.73 ESTIMA JENIFER GFR IS code = 1092) sq m NOT ACCURATE CREATININE CLEARANCE IN PREDICTING GLOMERULAR FILTRATION RATE . ESTIMATED GFR I S NOT APPLICABLE FOR DIALYSIS PATIEN TS. PROTHROMBIN [id number] 04:07:00 Test Item Value Reference Range Interpretation Comments PROTIME (BEAKER) (test code = 23.0 seconds 11.7-14.7 H 759) INR (BEAKER) (test code = 370) 2.0 <=5.9 RECOMMENDED COUMADIN/WARFARIN INR THERAPY RANGESSTANDARD DOSE: 2.0 - 3.0 Includes: PROPHYLAXIS forvenous thrombosis, systemic embolization; TREATMENT for venous thrombosis and/or pulmonary embolus.HIGH RISK: Target INR is 2.5-3.5 for patients with mechanical heart valves.IRON, TIBC, % SAT. (WITHOUT FERRITIN) 2017-01-14 04:06:00 Test Item Value Reference Range Interpretation Comments IRON (BEAKER) (test code = 547) 79 ug/dL 40-160 TOTAL IRON BINDING CAPACITY 303 ug/dL 250-450 (BEAKER) (test code = 769) IRON % SATURATION (2) (BEAKER) 26 % 20-55 (test code = 2590) CBC (HEMOGRAM ONLY)2017-01-14 03:51:00 Test Item Value Reference Range Interpretation Comments WHITE BLOOD CELL COUNT (BEAKER) 7.0 K/ L 4.0-10.0 (test code = 775) RED BLOOD CELL COUNT (BEAKER) 3.41 M/ L 4.20-5.80 L (test code = 761) HEMOGLOBIN (BEAKER) (test code = 10.2 GM/DL 13.0-16.8 L 410) HEMATOCRIT (BEAKER) (test code = 29.4 % 40.0-50.0 L 411) MEAN CORPUSCULAR VOLUME (BEAKER) 86.3 fL 82.0-98.0 (test code = 753) MEAN CORPUSCULAR HEMOGLOBIN 30.0 pg 27.0-33.0 (BEAKER) (test code = 751) MEAN CORPUSCULAR HEMOGLOBIN CONC 34.8 GM/DL 32.0-36.0 (BEAKER) (test code = 752) RED CELL DISTRIBUTION WIDTH 17.1 % 10.3-14.2 H (BEAKER) (test code = 412) PLATELET COUNT (BEAKER) (test 184 K/CU MM 150-430 code = 756) MEAN PLATELET VOLUME (BEAKER) 8.5 fL 6.5-10.5 (test code = 754) NUCLEATED RED BLOOD CELLS 0 /100 WBC 0-0 (BEAKER) (test code = 413) 0.00POCT-GLUCOSE [id number] 21:57:00 Test Item Value Reference Range Interpretation Comments POC-GLUCOSE METER 222 mg/dL 70-[address] [facility] 6720 (BEAKER) (test code = CHULA Craig [facility] 1538) [id number] CBC (HEMOGRAM ONLY)2017-01-13 18:08:00 Test Item Value Reference Range Interpretation Comments WHITE BLOOD CELL COUNT (BEAKER) 8.4 K/ L 4.0-10.0 (test code = 775) RED BLOOD CELL COUNT (BEAKER) 3.67 M/ L 4.20-5.80 L (test code = 761) HEMOGLOBIN (BEAKER) (test code = 11.1 GM/DL 13.0-16.8 L 410) HEMATOCRIT (BEAKER) (test code = 31.7 % 40.0-50.0 L 411) MEAN CORPUSCULAR VOLUME (BEAKER) 86.4 fL 82.0-98.0 (test code = 753) MEAN CORPUSCULAR HEMOGLOBIN 30.4 pg 27.0-33.0 (BEAKER) (test code = 751) MEAN CORPUSCULAR HEMOGLOBIN CONC 35.2 GM/DL 32.0-36.0 (BEAKER) (test code = 752) RED CELL DISTRIBUTION WIDTH 17.0 % 10.3-14.2 H (BEAKER) (test code = 412) PLATELET COUNT (BEAKER) (test 203 K/CU MM 150-430 code = 756) MEAN PLATELET VOLUME (BEAKER) 8.4 fL 6.5-10.5 (test code = 754) NUCLEATED RED BLOOD CELLS 0 /100 WBC 0-0 (BEAKER) (test code = 413) 0.00POCT-GLUCOSE [id number] 17:32:00 Test Item Value Reference Range Interpretation Comments POC-GLUCOSE METER 347 mg/dL 70-110 H Notified R N MD/TESTED (BEAKER) (test code = AT [facility] [address] [facility] 225[address]) [place] [address] B-TYPE NATRIURETIC FACTOR (BNP)2017-01-13 15:39:00 Test Item Value Reference Range Interpretation Comments B-TYPE NATRIURETIC PEPTIDE (BEAKER) 53 pg/mL 0-100 (test code = 700) LACTATE DEHYDROGENASE (LDH)2017-01-13 15:37:00 Test Item Value Reference Range Interpretation Comments LACTATE DEHYDROGENASE (BEAKER) (test 290 U/L 125-220 H code = 635) [id number] 13:55:00 Test Item Value Reference Range Interpretation Comments LIPASE (BEAKER) (test code = 749) 26 U/L 8-78 BASIC METABOLIC [id number] 13:55:00 Test Item Value Reference Range Interpretation Comments SODIUM (BEAKER) 134 meq/L 136-145 L (test code = 381) POTASSIUM (BEAKER) 4.5 meq/L 3.5-5.1 (test code = 379) CHLORIDE (BEAKER) 101 meq/L 98-107 (test code = 382) CO2 (BEAKER) (test 25 meq/L 22-29 code = 355) BLOOD UREA NITROGEN 37 mg/dL 7-21 H (BEAKER) (test code = 354) CREATININE (BEAKER) 1.28 mg/dL 0.57-1.25 H (test code = 358) GLUCOSE RANDOM 320 mg/dL 70-105 H (BEAKER) (test code = 652) CALCIUM (BEAKER) 9.0 mg/dL 8.4-10.2 (test code = 697) EGFR (BEAKER) (test 59 mL/min/1.73 ESTIMA JENIFER GFR IS code = 1092) sq m NOT ACCURATE CREATININE CLEARANCE IN PREDICTING GLOMERULAR FILTRATION RATE . ESTIMATED GFR I S NOT APPLICABLE FOR DIALYSIS PATIEN TS. HEPATIC FUNCTION [id number] 13:55:00 Test Item Value Reference Range Interpretation Comments TOTAL PROTEIN (BEAKER) (test code = 6.4 gm/dL 6.0-8.3 770) ALBUMIN (BEAKER) (test code = 1145) 3.4 g/dL 3.5-5.0 L BILIRUBIN TOTAL (BEAKER) (test code 0.5 mg/dL 0.2-1.2 = 377) BILIRUBIN DIRECT (BEAKER) (test 0.2 mg/dL 0.1-0.5 code = 706) ALKALINE PHOSPHATASE (BEAKER) (test 117 U/L 40-150 code = 346) AST (SGOT) (BEAKER) (test code = 31 U/L 5-34 353) ALT (SGPT) (BEAKER) (test code = 41 U/L 6-55 347) CBC W/PLT COUNT & AUTO [id number] 13:43:00 Test Item Value Reference Range Interpretation Comments WHITE BLOOD CELL COUNT (BEAKER) 9.4 K/ L 4.0-10.0 (test code = 775) RED BLOOD CELL COUNT (BEAKER) 4.01 M/ L 4.20-5.80 L (test code = 761) HEMOGLOBIN (BEAKER) (test code = 11.9 GM/DL 13.0-16.8 L 410) HEMATOCRIT (BEAKER) (test code = 34.4 % 40.0-50.0 L 411) MEAN CORPUSCULAR VOLUME (BEAKER) 85.8 fL 82.0-98.0 (test code = 753) MEAN CORPUSCULAR HEMOGLOBIN 29.6 pg 27.0-33.0 (BEAKER) (test code = 751) MEAN CORPUSCULAR HEMOGLOBIN CONC 34.5 GM/DL 32.0-36.0 (BEAKER) (test code = 752) RED CELL DISTRIBUTION WIDTH 16.9 % 10.3-14.2 H (BEAKER) (test code = 412) PLATELET COUNT (BEAKER) (test 215 K/CU MM 150-430 code = 756) MEAN PLATELET VOLUME (BEAKER) 8.2 fL 6.5-10.5 (test code = 754) NUCLEATED RED BLOOD CELLS 0 /100 WBC 0-0 (BEAKER) (test code = 413) NEUTROPHILS RELATIVE PERCENT 66 % (BEAKER) (test code = 429) LYMPHOCYTES RELATIVE PERCENT 23 % (BEAKER) (test code = 430) MONOCYTES RELATIVE PERCENT 8 % (BEAKER) (test code = 431) EOSINOPHILS RELATIVE PERCENT 2 % (BEAKER) (test code = 432) BASOPHILS RELATIVE PERCENT 1 % (BEAKER) (test code = 437) NEUTROPHILS ABSOLUTE COUNT 6.20 K/ L 1.80-8.00 (BEAKER) (test code = 670) LYMPHOCYTES ABSOLUTE COUNT 2.15 K/ L 1.48-4.50 (BEAKER) (test code = 414) MONOCYTES ABSOLUTE COUNT (BEAKER) 0.74 K/ L 0.00-1.30 (test code = 415) EOSINOPHILS ABSOLUTE COUNT 0.21 K/ L 0.00-0.50 (BEAKER) (test code = 416) BASOPHILS ABSOLUTE COUNT (BEAKER) 0.06 K/ L 0.00-0.20 (test code = 417) 0.00PT/[id number] 13:40:00 Test Item Value Reference Range Interpretation Comments PROTIME (BEAKER) (test code = 21.9 seconds 11.7-14.7 H 759) INR (BEAKER) (test code = 370) 1.9 <=5.9 PARTIAL THROMBOPLASTIN TIME 31.4 seconds 22.5-36.0 (BEAKER) (test code = 760) RECOMMENDED COUMADIN/WARFARIN INR THERAPY RANGESSTANDARD DOSE: 2.0 - 3.0 Includes: PROPHYLAXIS forvenous thrombosis, systemic embolization; TREATMENT for venous thrombosis and/or pulmonary embolus.HIGH RISK: Target INR is 2.5-3.5 for patients with mechanical heart valves.
[2021-04-06 17:02] LABS: Absolute Lymphocytes (CBC) 1.6 K/uL (0.7-4.9); Basophils % 1.2 % (0-1.3); Hematocrit 38.3 % (39.6-49.0); Lymphocytes % 26.1 % (15.3-44.8); MPV 9.6 fL (7.6-11.3); RBC Red Blood Cell Count 4.89 M/uL (4.33-5.43)
[2021-04-06 17:07] LABS: Protime INR 1.82
[2021-04-06 17:32] LABS: ALT/SGPT 30 U/L (12-78); AST/SGOT 20 U/L (15-37); Albumin 3.4 g/dL (3.4-5.0); Alkaline Phosphatase 95 U/L (45-117); BUN Blood Urea Nitrogen 48 mg/dL (7-18); Bicarbonate 29 mmol/L (21-32); Bilirubin Direct 0.1 mg/dL (0-0.2); Bilirubin Total 0.5 mg/dL (0.2-1.0); Glucose Level 248 mg/dL (74-106); Magnesium 2.2 mg/dL (1.8-2.4); NT PRO-BNP 1381 pg/mL (<125); Potassium 4.6 mmol/L (3.5-5.1); Protein, Total 7.9 g/dL (6.4-8.2); Sodium Level 138 mmol/L (136-145); Troponin (Emerg Dept Use Only) < 0.02 ng/mL (0.0-0.045)
--- NOTE | 2021-04-06 17:46 | RAD REPORT ---
EXAM DESCRIPTION: RAD - Chest Single View - 04/06/2021 5:30 pm CLINICAL HISTORY: Palpitations;SOB Chest pain. COMPARISON: <Comparisons> FINDINGS: Portable technique limits examination quality. The lungs are grossly clear. Heart size is normal with postsurgical changes present. LVAD device is n oted along with multi lead pacer/defibrillator device. Multi lead pacer/defibrillator device present. IMPRESSION: No acute intrathoracic process suspected.
--- NOTE | 2021-04-06 19:50 | ER ---
Nurse's Notes [facility] Name: Jose Lizama Age: 61 yrs Sex: Male : 1960 Arrival Date: 04/06/2021 Time: 16:08 Bed 6 Private MD: Diagnosis: Palpitations;Unspecified combined systolic (congestive) and diastolic (congestive) heart failure Presentation: 04/06 16:17 Chief complaint: Patient states: Palpitations, L back pain, SOB for 4 days. No fever or ll1 cough. Coronavirus screen: Client denies travel out of the [place] in the last 14 days. At this time, the client does not indicate any symptoms associated with coronavirus-19. Ebola Screen: Patient denies travel to an Ebola-affected area in the 21 days before illness onset. Initial Sepsis Screen: Does the patient meet any 2 criteria? No. Patient's initial sepsis screen is negative. Does the patient have a suspected source of infection? No. Patient's initial sepsis screen is negative. Risk Assessment: Do you want to hurt yourself or someone else? Patient reports no desire to harm self or others. Onset of symptoms was April 02, 2021. 16:17 Method Of Arrival: Ambulatory ll1 16:17 Acuity: ANIL 3 ll1 17:20 Acuity: ANIL 2 jd3 Historical: - Allergies: 16:24 No Known Drug Allergies; ll1 - PMHx: 16:24 CHF; Diabetes - NIDDM; Hypertension; ll1 - PSHx: 16:24 LVAD; pacemaker insertion; neck surgery; ll1 - Immunization history:: Flu vaccine is not up to date. - Social history:: Smoking status: Patient denies any tobacco usage or history of. Screenin:11 Abuse screen: Denies threats or abuse. Nutritional screening: No deficits noted. jd3 Tuberculosis screening: No symptoms or risk factors identified. Fall Risk Ambulatory Aid- None/Bed Rest/Nurse Assist (0 pts). Gait- Normal/Bed Rest/Wheelchair (0 pts) Mental Status- Oriented to own ability (0 pts). Total Bowers Fall Scale indicates No Risk (0-24 pts). Assessment: 17:10 General: Appears in no apparent distress. comfortable, Behavior is calm, cooperative, jd3 appropriate for age. Pain: Complains of pain in chest Pain does not radiate. Quality of pain is described as pressure, Pain began gradually. Neuro: Level of Consciousness is awake, alert, obeys commands, Oriented to person, place, time, situation. Cardiovascular: Reports chest pain, Capillary refill < 3 seconds Patient's skin is warm and dry. pt with LVAD. Rhythm is ventricular pacer. Respiratory: Airway is patent Respiratory effort is even, unlabored, Respiratory pattern is regular, symmetrical, Denies cough, shortness of breath. GI: No signs and/or symptoms were reported involving the gastrointestinal system. : No signs and/or symptoms were reported regarding the genitourinary system. EENT: No signs and/or symptoms were reported regarding the EENT system. Derm: Skin is intact, Skin is dry, Skin is normal, Skin temperature is warm. Musculoskeletal: No signs and/or symptoms reported regarding the musculoskeletal system. 18:30 Reassessment: No changes from previously documented assessment. Patient and/or family jd3 updated on plan of care and expected duration. Pain level reassessed. Patient is alert, oriented x 3, equal unlabored respirations, skin warm/dry/pink. 19:30 Reassessment: Patient appears in no apparent distress at this time. Patient is alert, rr5 oriented x 3, equal unlabored respirations, skin warm/dry/pink. reassess by ED provider with order for repeat troponin at 2000H. 19:57 Reassessment: Patient appears in no apparent distress at this time. Patient is alert, rr5 oriented x 3, equal unlabored respirations, skin warm/dry/pink. patient does not want to wait for the result of repeat troponin. ED provider aware, discharge instruction given and explained without complaints made. Vital Signs: 16:17 BP 118 / 56; Pulse 78; Resp 18; Temp 97.8; Pulse Ox 95% ; Weight 110.22 kg; Height 6 ll1 ft. 0 in. (182.88 cm); Pain 3/10; 17:53 BP 95 / 72; Pulse 60; Resp 15 S; Pulse Ox 97% on R/A; jd3 18:31 BP 127 / 85; Pulse 61; Resp 17 S; Pulse Ox 99% on R/A; jd3 19:30 BP 102 / 87; Pulse 60; Resp 16; Pulse Ox 99% ; rr5 16:17 Body Mass Index 32.96 (110.22 kg, 182.88 cm) ll1 ED Course: 16:08 Patient arrived in ED. as 16:22 Triage completed. ll1 16:24 Arm band placed on. ll1 16:37 Gerhard Borden PA is PHCP. cp 16:37 Gaurav Padron MD is Attending Physician. cp 16:56 Inserted saline lock: 20 gauge in left antecubital area, using aseptic technique. Blood mt collected. 17:09 Andrés Jenkins RN is Primary Nurse. jd3 17:11 Patient has correct armband on for positive identification. Placed in gown. Bed in low jd3 position. Call light in reach. Side rails up X2. Adult w/ patient. patient monitor on. Pulse ox on. NIBP on. 17:12 Patient maintains SpO2 saturation greater than 95% on room air. jd3 19:05 Report given to Eboni ESPINO and Eric ESPINO. jd3 19:20 Primary Nurse role handed off by Andrés Jenkins RN jd3 19:59 No provider procedures requiring assistance completed. IV discontinued, intact, rr5 bleeding controlled, No redness/swelling at site. Pressure dressing applied. Administered Medications: No medications were administered Outcome: 19:50 Discharge ordered by MD. cp 19:59 Discharged to home ambulatory. rr5 19:59 Condition: stable 19:59 Discharge instructions given to patient, Instructed on discharge instructions, follow up and referral plans. Demonstrated understanding of instructions, follow-up care. 20:00 Patient left the ED. rr5 Signatures: Amie Shin as Gerhard Borden PA PA Thao Mueller dc Andrés Jenkins RN RN jd3 Eric Duckworth RN RN rr5 Wendi Yeung RN RN ll1 Corrections: (The following items were deleted from the chart) 17:50 17:30 Acuity: ANIL 2 jd3 jd3 17:54 17:10 Cardiovascular: Capillary refill < 3 seconds Patient's skin is warm and dry. jd3 Rhythm is irregular jd3 18:31 17:10 Cardiovascular: Capillary refill < 3 seconds Patient's skin is warm and dry. jd3 Rhythm is ventricular pacer jd3
--- NOTE | 2021-04-06 19:50 | EDPHYS ---
Physician Documentation [facility] Name: Jose Lizama Age: 61 yrs Sex: Male : 1960 Arrival Date: 04/06/2021 Time: 16:08 Bed 6 Private MD: ED Physician Gaurav Padron HPI: 04/06 16:44 This 61 yrs old Male presents to ER via Ambulatory with complaints of Chest cp Pain. 16:44 The patient has shortness of breath with light activity. cp 16:44 Onset: The symptoms/episode began/occurred 4 day(s) ago. Duration: The symptoms are cp intermittent. The patient presents with a history of feels like heart pounding. 16:44 Modifying factors: The symptoms are alleviated by nothing. Associated signs and cp symptoms: Pertinent negatives: non-productive cough, productive cough, diaphoresis, fever, vomiting. Severity of symptoms: in the emergency department the symptoms are unchanged despite home interventions. 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. Historical: - Allergies: 16:24 No Known Drug Allergies; ll1 - PMHx: 16:24 CHF; Diabetes - NIDDM; Hypertension; ll1 - PSHx: 16:24 LVAD; pacemaker insertion; neck surgery; ll1 - Immunization history:: Flu vaccine is not up to date. - Social history:: Smoking status: Patient denies any tobacco usage or history of. ROS: 16:48 Constitutional: Negative for body aches, chills, fever, poor PO intake. cp 16:48 Eyes: Negative for injury, pain, redness, and discharge. cp Exam: 16:38 ECG was reviewed by the Attending Physician. cp 16:50 Constitutional: The patient appears in no acute distress, alert, awake, cp non-diaphoretic, non-toxic, well developed, well nourished, overweight 16:50 Head/Face: Normocephalic, atraumatic. cp 16:50 Eyes: Periorbital structures: appear normal, Conjunctiva: normal, no exudate, no cp injection, Sclera: no appreciated abnormality, Lids and lashes: appear normal, bilaterally. 16:50 ENT: External ear(s): are unremarkable, Nose: is normal, Mouth: Lips: moist, Oral mucosa: moist, Posterior pharynx: Airway: no evidence of obstruction, patent. 16:50 Chest/axilla: Inspection: normal, Palpation: is normal, no crepitus, no tenderness. 16:50 Cardiovascular: Rate: normal, Rhythm: regular, Edema: is not appreciated, JVD: is not appreciated. 16:50 Respiratory: the patient does not display signs of respiratory distress, Respirations: normal, no use of accessory muscles, no retractions, labored breathing, is not present, Breath sounds: are clear throughout, no decreased breath sounds, no stridor, no wheezing. 16:50 Abdomen/GI: Inspection: abdomen appears normal, Palpation: abdomen is soft and non-tender, in all quadrants, rebound tenderness, is not appreciated, voluntary guarding, is not appreciated, involuntary guarding, is not appreciated. 16:50 Back: pain, is absent, ROM is normal. Vital Signs: 16:17 BP 118 / 56; Pulse 78; Resp 18; Temp 97.8; Pulse Ox 95% ; Weight 110.22 kg; Height 6 ll1 ft. 0 in. (182.88 cm); Pain 3/10; 17:53 BP 95 / 72; Pulse 60; Resp 15 S; Pulse Ox 97% on R/A; jd3 18:31 BP 127 / 85; Pulse 61; Resp 17 S; Pulse Ox 99% on R/A; jd3 19:30 BP 102 / 87; Pulse 60; Resp 16; Pulse Ox 99% ; rr5 16:17 Body Mass Index 32.96 (110.22 kg, 182.88 cm) ll1 MDM: 16:44 Patient medically screened. cp 19:10 Physician consultation: was contacted at 19:00, regarding consult, patient's condition, cp spoke with DR Mariah Nieto who wants patient to increase Bumex to twice daily and f/u next 1-2 weeks in clinic. 19:50 Data reviewed: vital signs, nurses notes, lab test result(s), EKG, radiologic studies, cp plain films, and as a result, I will discharge patient. 04/06 16:45 Order name: Basic Metabolic Panel 04/06 16:45 Order name: CBC with Diff 04/06 16:45 Order name: LFT's 04/06 16:45 Order name: Magnesium cp 04/06 16:45 Order name: NT PRO-BNP cp 04/06 16:45 Order name: PT-INR cp 04/06 16:45 Order name: Troponin (emerg Dept Use Only) cp 04/06 16:46 Order name: Digoxin cp 04/06 16:46 Order name: Ptt, Activated cp 04/06 17:03 Order name: CBC with Automated Diff; Complete Time: 17:39 EDMS 04/06 17:40 Interpretation: Normal except: HGB 12.5; HCT 38.3; MCV 78.2; MCH 25.6; PLT 137; RDW cp 16.3. 04/06 17:12 Order name: Protime (+INR); Complete Time: 17:39 EDMS 04/06 17:18 Order name: PTT, Activated Partial Thromb; Complete Time: 17:39 EDMS 04/06 17:32 Order name: Basic Metabolic Panel; Complete Time: 17:39 EDMS 04/06 17:41 Interpretation: Normal except: GLUC 248; BUN 48; CRE 2.11; GFR 32. cp 04/06 17:32 Order name: Liver (Hepatic) Function; Complete Time: 17:39 EDMS 04/06 16:45 Order name: XRAY Chest (1 view) cp 04/06 16:45 Order name: EKG; Complete Time: 16:46 cp 04/06 16:45 Order name: Cardiac monitoring; Complete Time: 16:46 cp 04/06 16:45 Order name: EKG - Nurse/Tech; Complete Time: 16:46 cp 04/06 16:45 Order name: IV Saline Lock; Complete Time: 16:57 cp 04/06 16:45 Order name: Labs collected and sent; Complete Time: 16:57 cp 04/06 16:45 Order name: O2 Per Protocol; Complete Time: 16:46 cp 04/06 16:45 Order name: O2 Sat Monitoring; Complete Time: 16:47 cp 04/06 17:32 Order name: Troponin (Emerg Dept Use Only); Complete Time: 17:39 EDMS 04/06 17:32 Order name: NT PRO-BNP; Complete Time: 17:39 EDMS 04/06 17:32 Order name: Magnesium; Complete Time: 17:39 EDMS 04/06 17:32 Order name: Digoxin Level; Complete Time: 17:39 EDMS 04/06 17:47 Order name: RAD; Complete Time: 19:27 [facility] 04/06 19:36 Order name: Troponin I: repeat \T\2000 cp EC:38 Rate is 60 beats/min. Rhythm is regular. QRS interval is prolonged at 182 msec. QT cp interval is normal. Interpreted by me. Reviewed by me. Administered Medications: No medications were administered Disposition: 04/07 07:19 Co-signature as Attending Physician, Gaurav Padron MD. rn Disposition: 04/06/21 19:50 Discharged to Home. Impression: Palpitations, Unspecified combined systolic (congestive) and diastolic (congestive) heart failure. - Condition is Stable. - Discharge Instructions: Heart Failure, Palpitations. - Medication Reconciliation Form, Thank You Letter, Antibiotic Education, Prescription Opioid Use form. - Follow up: Private Physician; When: 10 - 14 days; Reason: Recheck today's complaints. - Problem is new. - Symptoms have improved. - Notes: increase prescribed Bumex to twice daily and follow-up with DR Nieto next 1-2 weeks Signatures: Dispatcher [employer] [facility] Gaurav Padron MD MD rn Gerhard Borden PA PA Eric Mancia RN RN rr5 Wendi Yeung RN RN ll1 Corrections: (The following items were deleted from the chart) 04/06 20:00 19:50 04/06/2021 19:50 Discharged to Home. Impression: Palpitations; Unspecified rr5 combined systolic (congestive) and diastolic (congestive) heart failure. Condition is Stable. Forms are Medication Reconciliation Form, Thank You Letter, Antibiotic Education, Prescription Opioid Use. Follow up: Private Physician; When: 10 - 14 days; Reason: Recheck today's complaints. Problem is new. Symptoms have improved. cp
[2021-04-06 21:01] VITALS: TEMP 97.8
[2021-04-06 21:04] VITALS: O2SAT 99
[2021-04-06 21:05] VITALS: BP 102/87
== END 2021-04-06 20:00 | disposition home or self-care (01) ==
LOC: ER 16:07
DX: I50.40 Unspecified combined systolic (congestive) and diastolic (congestive) heart failure (principal); I10 Essential (primary) hypertension; Z95.810 Presence of automatic (implantable) cardiac defibrillator
CPT/HCPCS: 36415; 71045; 80048; 80076; 80162; 83735; 83880; 84484; 85025; 85610; 85730; 93005; 99285

== ENCOUNTER 2021-06-13 11:03 | Emergency (ER) | payer OTHER ==
--- OUTSIDE RECORDS SUMMARY | 2021-06-13 11:20 | XMS REPORT | Continuity of Care Document ---
:1960 Author Organization [facility] t Address [address] [place] [address] Care Team Providers Name Role Phone Pcp Primary Care Physician Unavailable Bettie Wood MD Attending Clinician Bettie WOOD Attending Clinician Unavailable Dar Attending Clinician Unavailable Donaldo RN, Gurmeet Attending Clinician Unavailable Cesario Attending Clinician Unavailable Ayad RN, E Attending Clinician Unavailable Ana RN Attending Clinician Unavailable Juan Antonio RN, L Attending Clinician Unavailable Rita Fuentes Attending Clinician Unavailable Roddy ESPINO, Jim Attending Clinician Unavailable Lisa Attending Clinician Unavailable Gamal ESPINO Attending Clinician Unavailable Bettie ELY Attending Clinician [...] Date Expiration Date Sour ce Number TEXANPLUSTEXANPLUS HMO [id number] [id number] 2019-Pr 00:00:00 L bernie - Mirza Contracted [facility] Problems Condition Condition Condition Status Onset Resolution Last Treating Co mments Source Name Details Category Date Date Treatment Clinician Date 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 rosis of 1-15 [facility] - coronary coronary 00:00: Medica l artery artery 00 Center bypass bypass graft of graft of [place] heart with heart with unstable unstable angina angina pectoris pectoris Other Other Disease Active [facility] cirrhosis cirrhosis 06-09 [facility] - of liver of liver 00:00: Medica l 00 Center Screening Screening Disease Active [facility] for for 06-09 [facility] - malignant malignant 00:00: [facility] neoplasm neoplasm 00 Center Hepatitis Hepatitis Disease Active [facility] C virus C virus 02-24 [facility] - infection infection 00:00: [facility] cured cured 00 Center after after antiviral antiviral drug drug therapy therapy History of History of Disease Active [facility] alcohol alcohol 02-24 [facility] - abuse abuse 00:00: Medical 00 Center Immunity Immunity Disease Active [facility] status status 02-24 [facility] - testing testing 00:00: Medical 00 Martin Class 2 Class 2 Disease Active [facility] [...] St 0-24 [facility] - 00:00: Medical 00 [place] Cardiomyop Cardiomyop Disease Active [facility] athy athy 1-03 [facility] - 00:00: Medical 00 Martin GI bleed GI bleed Disease Active [facility] 1-02 [facility] - 00:[facility]: Medical 00 Center Acute Acute Disease Active [facility] blood loss blood loss 1-02 [facility] - anemia anemia 00:00: Medical 00 Center Upper GI Upper GI Disease Active [facility] bleed bleed 1- [facility] - 00:00: Medical 00 [place] Anemia Anemia Disease Active [facility] requiring requiring 1- [facility] - transfusio transfusio 00:00: Me dical ns ns 00 Center Syncope Syncope Disease Active 2015-[address] 2-19 [facility] - 00:00: Medical 00 [place] Musculoske Musculoske Disease Active 2015-11 C HI [...] DT due to DT due to 00:00: [facility] smoking smoking 00 Center IDDM IDDM Disease Active 2015-[address] [facility] (insulin (insulin 0-10 [facility] - dependent dependent 00:00: [facility] diabetes diabetes 00 Center mellitus) mellitus) Neuropathy Neuropathy Disease Active 2015-[address] 0-10 [facility] - 00:00: Medical 00 Center Gastrointe Gastrointe Disease Active [facility] stinal stinal - [facility] - hemorrhage hemorrhage 00:00: Me dical with with 00 Center melena melena Hypothyroi Hypothyroi Disease Active Overview : [facility] dism dism 04-18 UPDATED [facility] - 00:00: BY ICD10 Medical 00 SNOMED/IM Center O UPDATES Chronic Chronic Disease Active Overview: [facility] anticoagul anticoagul 04-18 Recent [facility] - ation ation 00:00: history Medical 00 of AVM, Center off ASACurren tly on Coumadin at 6 mg dailyRepe at INR weekly Anemia, Anemia, Disease Active [facility] blood loss blood loss - [facility] - 00:00: Medical 00 Center Chronic Chronic Disease Active [facility] post-opera post-opera 04-18 [facility] - tive pain tive pain 00:00: [facility] 00 Center Depression Depression Disease Active [facility] 04-18 [facility] - 00:00: Medical 00 Center Right Right Disease Active [facility] 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-28 [facility] - failure failure 00:00: Medical 00 Center Left Left Disease Active Overview: [facility] ventricula ventricula 03-27 Last echo [facility] - r assist r assist 00:00: on Medica l device, device, 00 Cente r Heartmate Heartmate 8: II, II, showing implanted implanted increased 03/27/16 03/27/16 LVIDd of 5.1 from 4.25, AV opensRepe at speed change echo on 8 - pendingCu rrent speed of 9000 rpmsLDH stable DL site clean and dryNo VAD alarms reported Chronic Chronic Disease Active Overview: [facility] renal renal -31 Cr ranges [facility] - disease, disease, 00:00: 1 - Medica l stage III stage III 00 1.4Diuret C enter ics Chronic Chronic Disease Active Overview: [facility] systolic systolic NYHA III, Derick es - 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 - Medical ischemic ischemic Bumex 1 Cente r cardiomyop cardiomyop mg daily- athy athy Carvedilo l 37.5 mg BID- Digoxin 0.125 mg QD - Ivabradin e 5 mg BID - Eplerenon e 25 mg daily- Losartan 100 mg qd for afterload reduction Intoleran t to EntrestoR /[facility] done 07/2017cl ass 2 CAD CAD Disease Active Overview: [facility] (coronary (coronary Last [facility] - artery artery 10/2014 Medical disease), disease), with 50% Ce nter s/p stent s/p stent stenosis to LAD to LAD to RCA, OM2, proximal LAD. Patent stent. ASA off due to GIBAtorva statin Hyperlipid Hyperlipid Disease Active C [facility] Essential Essential Disease Active Overview: [facility] hypertensi hypertensi - Coreg L ukes - on on 37.5 mg Medical BID- Center Losartan 100 mg qd- Add amlodipin e 5 mg daily Type 2 Type 2 Disease Active [facility] diabetes diabetes [facility] - mellitus mellitus Medica l with with Center network liaison network liaison y disorder y disorder AICD AICD Disease Active [facility] (automatic (automatic [facility] - cardiovert cardiovert Me dical er/defibri er/defibri Ce nter llator) llator) present, present, MDT MDT Allergies, Adverse Reactions, Alerts Allergy Allergy Status Severity Reaction(s) Onset Inactive Treating Comm ents Source Name Type Date Date Clinician Morphine Drug Active Nausea Only [facility] Allergy 11-20 [facility] - 00:00: Medical 00 Martin Family History Family Member Diagnosis Comments Start Date Stop Date Source Natural brother defects [facility] Social History Social Habit Start Date Stop Date Quantity Comments Source Sex Assigned [facility] Cigarettes smoked 2021-05-30 2021-05-[address] [facility] - current (pack per 00:00:00 00:00:00 Medical Center day) - Reported Tobacco use and 2021-05-30 2021-05-[address] [facility] - exposure 00:00:00 00:00:00 [facility] Alcohol intake 2021-05-30 2021-05-[address] [facility]ick [facility] - 00:00:00 00:00:00 non-drinker of Medical Ce nter alcohol (finding) Tobacco Comment 2017-02-02 2017-02-02 e cigg with thc [facility] - 00:00:00 00:00:00 12/28/[address] date. History of tobacco 2015-12-28 [address] smoker [facility] - use 00:00:00 [facility] Alcohol Comment 2015-12-10 2015-12-[address] [facility] - 00:00:00 00:00:00 [facility] Smoking Status Start Date Stop Date Source Former smoker 2021-05-30 00:00:00 2021-05-30 00:00:[address] [facility] - [facility] Medications Ordered Filled Start Stop Current Ordering Indication Dosage Frequency Signature Comments Components Source Medication Medication Date Date Medication? Clinician (SIG) Name Name levothyroxi Yes 50ug Take [address] [facility] ne 7-12 mcg by [facility] - (SYNTHROID, 08:41: mouth Medic al LEVOTHROID) 57 Every Center 50 MCG morning on tablet an empty stomach. insulin Yes Inject [facility] aspart 7-12 subcutaneo [facility] - (NOVOLOG) 08:41: usly 3 Medica l 100 unit/mL 57 (three) Cente r InPn times daily before meals And per sliding scale . zolpidem Yes 10mg Take [address] (AMBIEN) 10 7-12 by mouth [facility] s - mg tablet 08:41: every Medical 57 night as Center needed for Insomnia. pantoprazol Yes 40mg QD Take [address] [facility] e 7-12 by mouth [facility] - (PROTONIX) 08:41: daily. Medic al 40 MG 57 Center tablet sertraline Yes 100mg QD Take [address] (ZOLOFT) 50 7-12 mg by [facility] - MG tablet 08:41: mouth Medical 57 daily . Center ivabradine Yes 5mg Q.5D Take [address] (CORLANOR) 7-12 by mouth 2 Derick es - 5 mg Tab 08:41: (two) Medical tablet 57 times Center daily. docusate Yes 100mg Take [address] sodium 7-12 mg by [facility] - (COLACE) 08:41: mouth Medical 100 MG 57 every Center capsule other day . pregabalin Yes 150mg Q.[id number] Take [address] (LYRICA) 7-12 [id number] mg by Luke s - 150 MG 08:41: 3D mouth 3 Medical capsule 57 (three) Center times daily. digoxin Yes 125ug QD Take 125 [facility] (LANOXIN) 7-12 mcg by [facility] - 0.125 MG 08:41: mouth Medical tablet 57 daily. Center insulin Yes 30U Q.5D Inject 30 [facility] t degludec 7-12 Units [facility] - (TRESIBA 08:41: subcutaneo Med ical U-100 57 usly 2 Center INSULIN (two) SUBQ) times daily. eplerenone Yes 25mg QD Take [address] (INSPRA) 25 7-12 by mouth Luke s - MG tablet 08:41: daily. Medica l 57 Center folic acid Yes 1mg QD Take [address] (FOLVITE) 1 7-12 by mouth Luke s - MG tablet 08:41: daily. Medica l 57 Center tamsulosin Yes .4mg QD Take 0.[address] (FLOMAX) 7-12 mg by [facility] - 0.4 mg Cap 08:41: mouth Medica l 24 hr 57 daily. Center capsule warfarin Yes Take by [facility] (COUMADIN, 7-12 mouth as [facility]ukes - JANTOVEN) 1 08:41: directed 5 Medical MG tablet 57 mg every Center MWF, 4.5 mg every Sun, Tues, Thurs,Sat . amlodipine- Yes Essential 1{tbl} QD Take [address] valsartan 5-19 hypertensio tablet by [facility] - (EXFORGE) 00:00: n mouth Medical 5-320 mg 00 daily. Center per tablet amlodipine- 2020- No Essential 1{tbl} QD Take [...] 1 mg 11:00: Medica l 00 Center bumetanide 2021- No 1mg Take [address] (BUMEX) 1 2 02- tablet (1 [facility] - MG tablet 00:00: 23:59 mg total) Me dical 00 :00 by mouth Center as needed. amlodipine- 2020- No 1{tbl} QD Take [address] valsartan 2 03-25 tablet by Luke s - (EXFORGE) 00:00: 00:00 mouth Medica l 5-320 mg 00 :00 daily. Center per tablet hydrALAZINE 2020- No 50mg Q.[id number] Take [address] (APRESOLINE 2-11 20- [id number] tablet (50 [facility] - ) 50 MG [...] QD Take [address] (PLAVIX) 75 -15 -15 tablet (75 L ukes - mg tablet 00:00: 23:59 mg total) Me dical 00 :00 by mouth Center daily. bumetanide 2020- No 1mg QD Take [address] (BUMEX) 1 -15 02- tablet (1 Luke s - MG [...] Take 1.[address] (COREG) 25 6-28 -15 hypertensio tablets [facility]ukes - MG tablet 00:00: [...] pneumococca Yes .5mL [facility] l 13-valent 3- [facility] - conjugate 13:00: Medical (PREVNAR 00 Center 13) vaccine injection atorvastati Yes LVAD (left 40mg QD Take [address] n (LIPITOR) 3- ventricular tablet (40 [facility] - 40 MG 00:00: assist mg total) Medic al tablet 00 device) by mouth Center present daily. (HCC) warfarin 2020- No Neuropathy [address] [facility] (COUMADIN) 413 12-03 by mouth. Derick es - 1 MG tablet 00:00: 00:00 Medic al 00 :00 Center losartan 2020- No 100mg QD Take 1 [facility] (COZAAR) 08-03 tablet [facility] - 100 MG 00:00: 00:00 (100 mg Medical tablet 00 :00 total) by Center mouth daily. Atorvastati Atorvastati Yes [place] 1 tablet [facility] n Calcium n Calcium [facility] Immunizations Ordered Immunization Filled Immunization Date Status Commen ts Source Name Name Pneumococcal 2019-05-02 Completed [facility] Conjugate (Prevnar) 00:00:00 Medic al Martin 13-Valent Influenza Three-TIV 2017-08-[address] [facility] - PF 5+ YR 00:00:00 Medical Center Vital Signs Vital Name Observation Time Observation Value Comments Source Body temperature 2021-05-30 08:36:00 36.11 Sari [facility] Respiratory rate 2021-05-30 08:36:00 18 /min [facility] Body weight 2021-05-30 08:36:00 102.785 kg [facility] BMI 2021-05-30 08:36:00 31.16 kg/m2 [facility] Oxygen saturation in 2021-05-30 08:36:00 96 /min [facility] - Arterial blood by Medical Ce nter Pulse oximetry Heart rate 2021-02-28 11:25:00 73 /min [facility] Body height 2021-02-28 11:25:00 181.6 cm [facility] Systolic blood 2021-01-17 09:30:00 102 mm[Hg] [facility] Diastolic blood 2021-01-17 09:30:00 66 mm[Hg] [facility] S t [facility] Procedures Procedure Date / Time Performed Performing Clinician Sourshannen e PROTHROMBIN TIME/INR 2021-05-30 08:58:00 Mariah Wood [facility] LACTATE DEHYDROGENASE 2021-05-30 08:58:00 Mariah Wood [facility] ([facility]) [facility] BASIC METABOLIC PANEL (7) 2021-05-30 08:58:00 Mariah Wood [facility] CBC W/PLT COUNT & AUTO 2021-05-30 08:58:00 Mariah Wood [facility] HEPATIC FUNCTION PANEL 2021-05-30 08:58:00 Mariah Wood [facility] MAGNESIUM 2021-05-30 08:58:00 Mariah Wood [facility] PROTHROMBIN TIME/INR 2021-05-05 00:00:00 Provider, Historical [facility] PROTHROMBIN TIME/INR 2021-04-21 00:00:00 Provider, Historical [facility] PROTHROMBIN TIME/INR 2021-03-31 00:00:00 Provider, Historical [facility] PROTHROMBIN TIME/INR 2021-03-21 00:00:00 Provider, Historical [facility] BASIC METABOLIC PANEL (7) 2021-03-19 00:00:00 Provider, Historic al [facility] LACTATE DEHYDROGENASE 2021-03-19 00:00:00 Provider, Historical [facility] ([facility]) [facility] MAGNESIUM 2021-03-19 00:00:00 Provider, Historical [facility] CBC W/PLT COUNT & AUTO 2021-03-19 00:00:00 Provider, Historical [facility] PROTHROMBIN TIME/INR 2021-02-28 11:42:00 Mariah Wood [facility] LACTATE DEHYDROGENASE 2021-02-28 11:42:00 Mariah Wood [facility] ([facility]) [facility] BASIC METABOLIC PANEL (7) 2021-02-28 11:42:00 Mariah Wood [facility] CBC W/PLT COUNT & AUTO 2021-02-28 11:42:00 Mariah Wood [facility] HEPATIC FUNCTION PANEL 2021-02-28 11:42:00 Mariah Wood [facility] MAGNESIUM 2021-02-28 11:42:00 Mariah Wood [facility] ARRYTHMIA IMPLANT REPORT 2021-02-28 00:00:00 Provider, Default [facility] SCAN [facility] HEPATIC FUNCTION PANEL 2021-02-23 00:00:00 Provider, Historical [facility] LACTATE DEHYDROGENASE 2021-02-23 00:00:00 Provider, Historical [facility] ([facility]) [facility] MAGNESIUM 2021-02-23 00:00:00 Provider, [facility] CBC W/PLT COUNT & AUTO 2021-02-23 00:00:00 Provider, [facility] BASIC METABOLIC PANEL (7) 2021-02-23 00:00:00 [facility]R 2021-02-23 00:00:00 Provider, Historical [facility] PROTHROMBIN TIME/INR 2021-02-14 00:00:00 Provider, [facility] HEPATIC FUNCTION PANEL 2021-02-07 00:00:00 Provider, [facility] LACTATE DEHYDROGENASE 2021-02-07 00:00:00 Provider, Historical [facility] ([facility]) [facility] MAGNESIUM 2021-02-07 00:00:00 Provider, Historical [facility] CBC W/PLT COUNT & AUTO 2021-02-07 00:00:00 Provider, [facility] PROTHROMBIN TIME/INR 2021-02-07 00:00:00 Provider, Historical [facility] PROTHROMBIN TIME/INR 2021-02-01 00:00:00 Provider, [facility] PROTHROMBIN TIME/INR 2021-01-25 00:00:00 Provider, Historical [facility] HEPATIC FUNCTION PANEL 2021-01-25 00:00:00 Provider, Historical [facility] LACTATE DEHYDROGENASE 2021-01-25 00:00:00 Provider, Historical [facility] ([facility]) [facility] MAGNESIUM 2021-01-25 00:00:00 Provider, Historical [facility] CBC W/PLT COUNT & AUTO 2021-01-25 00:00:00 Provider, Historical [facility] PROTHROMBIN TIME/INR 2021-01-17 08:25:00 Mariah Wood [facility] LACTATE DEHYDROGENASE 2021-01-17 08:25:00 Mariah Wood [facility] ([facility]) [facility] BASIC METABOLIC PANEL (7) 2021-01-17 08:25:00 Mariah Wood [facility] CBC W/PLT COUNT & AUTO 2021-01-17 08:25:00 Mariah Wood [facility] HEPATIC FUNCTION PANEL 2021-01-17 08:25:00 Mariah Wood [facility] MAGNESIUM 2021-01-17 08:25:00 Mariah Wood [facility] PROTHROMBIN TIME/INR 2021-01-11 00:00:00 Provider, Historical [facility] CBC W/PLT COUNT & AUTO 2021-01-11 00:00:00 Provider, Historical [facility] BASIC METABOLIC PANEL (7) 2021-01-11 00:00:00 Provider, Historic [facility] PROTHROMBIN TIME/INR 2020-12-20 09:50:00 Mariah Wood [facility] LACTATE DEHYDROGENASE 2020-12-20 09:50:00 Mariah Wood [facility] ([facility]) [facility] BASIC METABOLIC PANEL (7) 2020-12-20 09:50:00 Mariah Wood [facility] CBC W/PLT COUNT & AUTO 2020-12-20 09:50:00 Mariah Wood [facility] HEPATIC FUNCTION PANEL 2020-12-20 09:50:00 Mariah Wood [facility] MAGNESIUM 2020-12-20 09:50:00 Mariah Wood [facility] CBC W/PLT COUNT & AUTO 2020-12-13 09:23:00 Provider, Historical [facility] COMPREHENSIVE METABOLIC 2020-12-13 09:23:00 Provider, Historical [facility] PROTHROMBIN TIME/INR 2020-12-13 00:00:00 Provider, Historical [facility] POCT-GLUCOSE METER 2020-12-03 11:33:00 Mariah Wood [facility] POCT-GLUCOSE METER 2020-12-03 08:44:00 Mariah Wood [facility] BASIC METABOLIC PANEL (7) 2020-12-03 01:22:00 Mariah Wood [facility] CBC (HEMOGRAM ONLY) 2020-12-03 01:22:00 Mariah Wood [facility] PROTHROMBIN TIME/INR 2020-12-03 00:16:00 Mariah Wood [facility] POCT-GLUCOSE METER 2020-12-02 21:36:00 Mariah Wood [facility] POCT-ACT 2020-12-02 17:53:00 Mariah Wood [facility] POCT-ACT 2020-12-02 16:57:00 Mariah Wood [facility] POCT-ACT 2020-12-02 16:45:00 Mariah Wood [facility] R & L CATH / CORONARY 2020-12-02 15:17:00 Mariah Wood [facility] - ANGIOS / PCI [facility] ECG 12-LEAD 2020-12-02 10:24:59 Alfred Britton [facility] BASIC METABOLIC PANEL (7) 2020-12-02 09:52:00 Alfred Britton [facility] CBC (HEMOGRAM ONLY) 2020-12-02 09:52:00 Alfred Britton [facility] VASCULAR DIAGRAM -SCAN 2020-12-02 00:00:00 Provider, Default [facility] CARDIAC CATH REPORT - 2020-12-02 00:00:00 Provider, [facility] 2D ECHO W/ DOPPLER 2020-11-22 12:00:00 Mariah Wood [facility] (CW/PW/COLOR) [facility] PROTHROMBIN TIME/INR 2020-11-22 08:14:00 Mariah Wood [facility] LACTATE DEHYDROGENASE 2020-11-22 08:14:00 Mariah Wood [facility] ([facility]) [facility] BASIC METABOLIC PANEL (7) 2020-11-22 08:14:00 Mariah Wood [facility] CBC W/PLT COUNT & AUTO 2020-11-22 08:14:00 Mariah Wood [facility] HEPATIC FUNCTION PANEL 2020-11-22 08:14:00 Mariah Wood [facility] MAGNESIUM 2020-11-22 08:14:00 Mariah Wood [facility] PROTHROMBIN TIME/INR 2020-11-15 00:00:00 Provider, Historical [facility] BASIC METABOLIC PANEL (7) 2020-11-15 00:00:00 Provider, Historic al [facility] CBC W/PLT COUNT & AUTO 2020-11-15 00:00:00 Provider, Historical [facility] LACTATE DEHYDROGENASE 2020-11-15 00:00:00 Provider, Historical [facility] ([facility]) [facility] MAGNESIUM 2020-11-15 00:00:00 Provider, Historical [facility] PROTHROMBIN TIME/INR 2020-10-28 00:00:00 Provider, Historical [facility] PROTHROMBIN TIME/INR 2020-10-07 00:00:00 Provider, Historical [facility] PROTHROMBIN TIME/INR 2020-09-20 00:00:00 Provider, Historical [facility] PROTHROMBIN TIME/INR 2020-09-08 00:00:00 Provider, Historical [facility] PROTHROMBIN TIME/INR 2020-08-16 10:53:00 Mariah Wood [facility] LACTATE DEHYDROGENASE 2020-08-16 10:53:[address] [facility] S [facility] ([facility]) [facility] BASIC METABOLIC PANEL (7) 2020-08-16 10:53:00 Mariah Wood [facility] CBC W/PLT COUNT & AUTO 2020-08-16 10:53:00 Mariah Wood [facility] HEPATIC FUNCTION PANEL 2020-08-16 10:53:00 Mariah Wood [facility] MAGNESIUM 2020-08-16 10:53:00 Mariah Wood [facility] PROTHROMBIN TIME/INR 2020-07-21 00:00:00 Provider, Historical [facility] PROTHROMBIN TIME/INR 2020-06-30 00:00:00 Provider, Historical [facility] Plan of Care Planned Activity Planned Date Details Comments Source Future Scheduled 2023-05-[address] [facility] (procedure) [code = Medical Center 20423077] Future Scheduled 2021-07-20 [facility] [code = INFLUENZA Medical Ce nter VACCINE (#1)] Future Scheduled 2021-05-[address] [facility] protein (procedure) [facility] [code = 954859392] Future Scheduled 2020-11-13 Hemoglobin A1c [facility] - Test 00:00:00 measurement [facility] (procedure) [code = 62969639] Future Scheduled 2019-06-[address] [...] YEAR if no IPPE)] Future Scheduled 2012-02-25 SHINGLES VACCINES ([address] [facility] - Test 00:00:00 of 2) [code = SHINGLES Medic ne Center VACCINES (1 of 2)] Future Scheduled 1981 DTAP/TDAP/TD VACCINES [facility] - Test 00:00:00 (1 - Tdap) [code = Medical C enter DTAP/TDAP/TD VACCINES (1 - Tdap)] Future Scheduled 1974 COVID-19 VACCINE (1) [facility] - Test 00:00:00 [code = COVID-[address] VACCINE (1)] Future Scheduled 1972-02-[address] EXAM [facility] - Test 00:00:00 [code = DIABETIC EYE Medical Center EXAM] Future Scheduled 1972-02-[address] [facility] - Test 00:00:00 examination Medical Center (regime/therapy) [code = 840343677] Future Scheduled [address] [facility] - Test 00:00:00 malignant neoplasm of Medica l Center colon (procedure) [code = 815093539] Encounters Start End Encounter Admission Attending Care Care Encounter Source Date/Time Date/Time Type Type Clinicians Facility Department ID 2021-05-31 2021-05-31 [id number] 2021-04-08 2021-04-08 [facility] [id number] [facility] 2021-03-10 2021-03-10 [facility] [id number] [facility] 00:00[facility]00 [facility] 2021-03-07 2021-03-07 [facility] [id number] [facility] 2021-03-07 2021-03-07 [facility] [id number] [facility] 2021-01-12 2021-01-12 [facility] [id number] [facility] 2020-12-01 2020-12-01 [facility] [id number] [facility] 2020-11-29 2020-11-29 Outpatient [facility] [id number] [facility] 2020-11-29 2020-11-29 Out[facility] [id number] [facility] 2020-09-29 2020-09-29 Out[facility] [id number] [facility] 2020-08-27 2020-08-27 Out[facility] [id number] [facility] 2020-08-24 2020-08-24 Outpatient [facility] [id number] [facility] 2020-08-18 2020-08-18 Outpatient [facility] [id number] [facility] 2020-07-07 2020-07-07 [facility] [id number] [facility] 10:01:00 10:01:00 t [employer] [facility] Medicine Outpati ent Clinics 2020-05-18 2020-05-18 [facility] [id number] 09:20:00 09:20:00 t [employer] s - Drive [facility] Out[facility] Clinics 2020-05-13 2020-05-13 [facility] [id number] 08:47:00 08:47:00 t [employer] s - Drive [facility] Medicine Outpati ent Clinics 2020-05-11 2020-05-11 [facility] [id number] 10:08:00 10:08:00 t [employer] - [employer] [facility] Medicine l Medicine Outpati ent Clinics 2020-04-14 2020-04-14 [facility] [id number] 15:40:00 15:40:00 t ORDISSIMO [facility] Medicine Medicine Outpati ent Clinics 2020-04-09 2020-04-09 [facility] [id number] 17:40:00 17:40:00 t [facility]DIS[facility] Medicine Outpati ent Clinics 2020-03-31 2020-03-31 [facility] [id number] 15:01:00 15:01:00 t ORDISSIMO [facility] Medicine l Medicine Outpati ent Clinics 2020-03-18 2020-03-18 [facility] [id number] 14:41:00 14:41:00 t ORDISSIMO [facility] Medicine Medicine Outpati ent Clinics 2020-03-15 2020-03-15 Outpatient [facility] [id number] [facility] 22:25:00 22:25:00 [facility] Outpat[facility] ent Clinics 2020-03-10 2020-03-10 [facility] [id number] 08:30:00 08:30:00 t ORDISSIMO [facility] Medicine Outpati ent Clinics 2020-03-10 2020-03-10 [facility] [id number] [facility] 08:25:00 08:25:00 t ORDISSIMO [facility] Medicine Outpati ent Clinics 2020-02-05 2020-02-05 [facility] [id number] 11:20:00 11:20:00 t ORDISSIMO [facility] Medicine Medicine Outpati ent Clinics Results Test Description Test Time Test Comments Results Result Comments Source Basic Metabolic Panel 2021-05-30 09:56:00 Test Item Value Reference Range Interpretation Comme nts Sodium (test code = 137 meq/L 924-517 1835-2) Potassium (test code = 4.4 meq/L 3.5-5.1 2823-3) Chloride (test code = 96 meq/L 98-107 L 2074-0) CO2 (test code = 2028-07) 30 meq/L 22-29 H BUN (test code = 3094-0) 28 mg/dL 7-21 H Creatinine (test code = 1.76 mg/dL 0.57-1.25 H 2160-0) Glucose (test code = 212 mg/dL 70-105 H 2345-7) Calcium (test code = 8.9 mg/dL 8.4-10.2 09791-3) EGFR (test code = 26465-2) 40 mL/min/1.73 sq m ESTIMATED GFR IS NOT ACCURATE CREATININE PRISCILA WILL IN PREDICTING GLOMERULAR FILT RATION RATE. ESTIMATED GFR IS NOT APPLICAB LE FOR DIALYSIS PATIEN CARLOS (test code = CARLOS) Curb Attendant ID - [facility] Lab Interpretation (test Abnormal code = 34883-5) [facility] [id number] 09:56:00 Test Item Value Reference Range Interpretation Comments Protein, Total (test 7.3 See_Comment [Autom ated code = 2885-2) message] The system which generated this result transmit jenifer reference range : 6.0 - 8.3 gm/dL . The reference range was not u sed to interpret th is result as normal/abnormal . Albumin (test code = 3.3 g/dL 3.5-5 L 85708-3) Total Bilirubin (test 0.8 mg/dL 0.2-1.2 code = 1974-2) Bilirubin, Direct 0.5 mg/dL 0.1-0.5 (test code = 1968-7) Alkaline Phosphatase 111 U/L 40-150 (test code = 6768-6) AST (test code = 18 U/L 5-34 1920-8) ALT (test code = 14 U/L 6-55 1742-6) CARLOS (test code = CARLOS) Curb Attendant ID - [facility] Lab Interpretation Abnormal (test code = 46833-2) [facility] (LDH)2021-05-30 09:56:00 Test Item Value Reference Range Interpretation Comments LDH (test code = 2532-0) 284 U/L 125-220 H CARLOS (test code = CARLOS) Curb Attendant ID - [facility] Lab Interpretation (test Abnormal code = 68241-3) [facility]2021-[facility]12 09:56:00 Test Item Value Reference Range Interpretation Comments Magnesium (test code = 1.6 mg/dL 1.6-2.6 50229-2) CARLOS (test code = CARLOS) Curb Attendant ID - RAEANN [place] Lab Interpretation (test Normal code = 61425-6) [facility] [id number] 09:56:00 Test Item Value Reference Range Interpretation Comments SODIUM (BEAKER) 137 meq/L 136-145 (test code = 381) POTASSIUM (BEAKER) 4.4 meq/L 3.5-5.1 (test code = 379) CHLORIDE (BEAKER) 96 meq/L 98-107 L (test code = 382) CO2 (BEAKER) (test 30 meq/L 22-29 H code = 355) BLOOD UREA NITROGEN 28 mg/dL 7-21 H (BEAKER) (test code = 354) CREATININE (BEAKER) 1.76 mg/dL 0.57-1.25 H (test code = 358) GLUCOSE RANDOM 212 mg/dL 70-105 H (BEAKER) (test code = 652) CALCIUM (BEAKER) 8.9 mg/dL 8.4-10.2 (test code = 697) EGFR (BEAKER) (test 40 mL/min/1.73 ESTIMA JENIFER GFR IS code = 1092) sq m NOT ACCURATE CREATININE CLEARANCE IN PREDICTING GLOMERULAR FILTRATION RATE . ESTIMATED GFR I S NOT APPLICABLE FOR DIALYSIS PATIEN TS. Curb Attendant ID - RAEANN [id number] 09:56:00 Test Item Value Reference Range Interpretation Comments MAGNESIUM (BEAKER) (test code = 1.6 mg/dL 1.6-2.6 627) Curb Attendant ID - RAEANN MHEPATIC FUNCTION [id number] 09:56:00 Test Item Value Reference Range Interpretation Comments TOTAL PROTEIN (BEAKER) (test code = 7.3 gm/dL 6.0-8.3 770) ALBUMIN (BEAKER) (test code = 1145) 3.3 g/dL 3.5-5.0 L BILIRUBIN TOTAL (BEAKER) (test code 0.8 mg/dL 0.2-1.2 = 377) BILIRUBIN DIRECT (BEAKER) (test 0.5 mg/dL 0.1-0.5 code = 706) ALKALINE PHOSPHATASE (BEAKER) (test 111 U/L 40-150 code = 346) AST (SGOT) (BEAKER) (test code = 18 U/L 5-34 353) ALT (SGPT) (BEAKER) (test code = 14 U/L 6-55 347) Curb Attendant ID - RAEANN MLACTATE DEHYDROGENASE (LDH)2021-05-30 09:56:00 Test Item Value Reference Range Interpretation Comments LACTATE DEHYDROGENASE (BEAKER) (test 284 U/L 125-220 H code = 635) Curb Attendant ID - RAEANN MProthrombin time/[id number] 09:46:00 Test Item Value Reference Interpretation Comments Range Protime (test code = 18.2 See_Comment H [Autom ated 5902-2) message] The system which generated this result transmitted reference range : 11.9 - 14.2 seconds. The reference range was not used to interpret this result as normal/abnormal . INR (test code = 1.53 See_Comment [Automated 6301-6) message] The system which generated this result transmitted reference range : <=5.90. The reference range was not used to interpret this result as normal/abnormal . CARLOS (test code = RECOMMENDED CARLOS) COUMADIN/WARFARIN INR THERAPY RANGESSTANDARD DOSE: 2.0 - 3.0 Includes: PROPHYLAXIS for venous thrombosis, systemic embolization; TREATMENT for venous thrombosis and/or pulmonary embolus.HIGH RISK: Target INR is 2.5-3.5 for patients with mechanical heart valves. Lab Interpretation Abnormal (test code = 27196-1) [facility] HospitalPROT[facility]OMBIN [facility]/[id number] 09:46:00 Test Item Value Reference Range Interpretation Comments PROTIME (BEAKER) 18.2 seconds 11.9-14.2 H (test code = 759) INR (BEAKER) (test 1.53 See_Comment [Automat ed message] code = 370) The system whic h generated this result transmitted ref erence range: <=5.90. The reference range was not used to int erpret this result as normal/abnormal . RECOMMENDED COUMADIN/WARFARIN INR THERAPY RANGESSTANDARD DOSE: 2.0 - 3.0 Includes: PROPHYLAXIS forvenous thrombosis, systemic embolization; TREATMENT for venous thrombosis and/or pulmonary embolus.HIGH RISK: Target INR is 2.5-3.5 for patients with mechanical heart valves.CBC with platelet count + automated diff 2021-05-30 09:38:00 Test Item Value Reference Range Interpretation Comments WBC (test code = 6690-2) 11.2 See_Comment H [A utomated message] The system [facility] generated this result transmitted ref erence range: 3.5 - 10 .5 K/L. The refe rence range was not u sed to interpret this result as normal/abnor mal. RBC (test code = 789-8) 4.35 See_Comment L [Au tomated message] The system [facility] generated this result transmitted ref erence range: 4.63 - 6 .08 M/L. The refe rence range was not u sed to interpret this result as normal/abnor mal. MCHC (test code = 786-4) 32.6 See_Comment L [A utomated message] The system [facility] generated this result transmitted ref erence range: 32.3 - 3 6.5 GM/DL. The refe rence range was not u sed to interpret this result as normal/abnor mal. Hematocrit (test code = 34.4 % 40.1-51 L 4544-3) MCV (test code = 787-2) 79.1 fL 79-92.2 MCH (test code = 785-6) 25.7 pg 25.7-32.2 RDW (test code = 788-0) 14.3 % 11.6-14.4 Platelets (test code = 233 See_Comment [Aut omated message] 777-3) The system [facility] generated this result transmitted ref erence range: 150 - 45 0 K/CU MM. The referen ce range was not u sed to interpret this result as normal/abnor mal. MPV (test code = 11.0 fL 9.4-12.4 89042-2) nRBC (test code = 413) 0 See_Comment [Aut omated message] The system [facility] generated this result transmitted ref erence range: 0 - 0 /1 00 WBC. The refere nce range was not u sed to interpret this result as normal/abnor mal. % Neutros (test code = 80 % 429) % Lymphs (test code = 11 % 430) % Monos (test code = 6 % 431) % Eos (test code = 432) 1 % % Baso (test code = 437) 1 % # Neutros (test code = 9.00 See_Comment H [Aut omated message] 670) The system [facility] generated this result transmitted ref erence range: 1.78 - 5 .38 K/L. The refe rence range was not u sed to interpret this result as normal/abnor mal. # Lymphs (test code = 1.26 See_Comment L [Auto mated message] 414) The system [facility] generated this result transmitted ref erence range: 1.32 - 3 .57 K/L. The refe rence range was not u sed to interpret this result as normal/abnor mal. # Monos (test code = 0.71 See_Comment [Autom ated message] 415) The system [facility] generated this result transmitted ref erence range: 0.30 - 0 .82 K/L. The refe rence range was not u sed to interpret this result as normal/abnor mal. # Eos (test code = 416) 0.09 See_Comment [Au tomated message] The system [facility] generated this result transmitted ref erence range: 0.04 - 0 .54 K/L. The refe rence range was not u sed to interpret this result as normal/abnor mal. # Baso (test code = 417) 0.09 See_Comment H [A utomated message] The system [facility] generated this result transmitted ref erence range: 0.01 - 0 .08 K/L. The refe rence range was not u sed to interpret this result as normal/abnor mal. Immature 1 % 0-1 Granulocytes-Relative (test code = 2801) Lab Interpretation (test Abnormal code = 54803-4) [facility] W/PLT COUNT & AUTO [id number] 09:38:00 Test Item Value Reference Range Interpretation Comments WHITE BLOOD CELL COUNT (BEAKER) 11.2 K/ L 3.5-10.5 H (test code = 775) RED BLOOD CELL COUNT (BEAKER) 4.35 M/ L 4.63-6.08 L (test code = 761) HEMOGLOBIN (BEAKER) (test code = 11.2 GM/DL 13.7-17.5 L 410) HEMATOCRIT (BEAKER) (test code = 34.4 % 40.1-51.0 L 411) MEAN CORPUSCULAR VOLUME (BEAKER) 79.1 fL 79.0-92.2 (test code = 753) MEAN CORPUSCULAR HEMOGLOBIN 25.7 pg 25.7-32.2 (BEAKER) (test code = 751) MEAN CORPUSCULAR HEMOGLOBIN CONC 32.6 GM/DL 32.3-36.5 (BEAKER) (test code = 752) RED CELL DISTRIBUTION WIDTH 14.3 % 11.6-14.4 (BEAKER) (test code = 412) PLATELET COUNT (BEAKER) (test 233 K/CU MM 150-450 code = 756) MEAN PLATELET VOLUME (BEAKER) 11.0 fL 9.4-12.4 (test code = 754) NUCLEATED RED BLOOD CELLS 0 /100 WBC 0-0 (BEAKER) (test code = 413) NEUTROPHILS RELATIVE PERCENT 80 % (BEAKER) (test code = 429) LYMPHOCYTES RELATIVE PERCENT 11 % (BEAKER) (test code = 430) MONOCYTES RELATIVE PERCENT 6 % (BEAKER) (test code = 431) EOSINOPHILS RELATIVE PERCENT 1 % (BEAKER) (test code = 432) BASOPHILS RELATIVE PERCENT 1 % (BEAKER) (test code = 437) NEUTROPHILS ABSOLUTE COUNT 9.00 K/ L 1.78-5.38 H (BEAKER) (test code = 670) LYMPHOCYTES ABSOLUTE COUNT 1.26 K/ L 1.32-3.57 L (BEAKER) (test code = 414) MONOCYTES ABSOLUTE COUNT (BEAKER) 0.71 K/ L 0.30-0.82 (test code = 415) EOSINOPHILS ABSOLUTE COUNT 0.09 K/ L 0.04-0.54 (BEAKER) (test code = 416) BASOPHILS ABSOLUTE COUNT (BEAKER) 0.09 K/ L 0.01-0.08 H (test code = 417) IMMATURE GRANULOCYTES-RELATIVE 1 % 0-1 PERCENT (BEAKER) (test code = 2801) ARRYTHMIA IMPLANT REPORT - [id number] 10:01:10Ordered by an unspecified provider.[facility] [id number] 00:00:00 Test Item Value Reference Range Interpretation Comments INR (MANUAL) (test code = 1279903) 1.7 [facility] + automated [id number] 14:34:00 Test Item Value Reference Range Interpretation Comments WBC (MANUAL) (test 5.30 10^3/mL code = 6176526) RBC (MANUAL) (test 4.44 See_Comment [Automat ed message] code = 7707784) The system [employer] generated this result transmitted ref erence range: 10^6/L . The reference range was not used to int erpret this result as normal/abnormal . HEMOGLOBIN (MANUAL) 11.4 GM/DL (test code = 0261859) HEMATOCRIT (MANUAL) 34.9 % (test code = 5896453) MCV (MANUAL) (test 78.7 fL code = 3786446) MCH (MANUAL) (test 25.7 pg code = 5900325) MCHC (MANUAL) (test 32.6 GM/DL code = 4105706) RDW (MANUAL) (test 16.2 % code = 5175357) PLATELETS (MANUAL) 109 K/CU MM (test code = 5769691) MPV (MANUAL) (test 9.8 fL code = 7203461) NRBC (MANUAL) (test code = 4642960) NEUTROS PCT (MANUAL) 64.4 % (test code = 3282407) LYMPHS PCT (MANUAL) 22.7 % (test code = 2700058) MONOS PCT (MANUAL) 8.2 % (test code = 7801637) EOS PCT (MANUAL) 1.9 % (test code = 7393698) BASOS PCT (MANUAL) 2.8 % (test code = 3271946) NEUTROS ABS (MANUAL) 3.4 K/L (test code = 8918741) LYMPHS ABS (MANUAL) 1.2 K/L (test code = 2717375) MONOS ABS (MANUAL) 0.4 K/L (test code = 6188396) EOS ABS (MANUAL) 0.1 K/L (test code = 3960676) BASOS ABS (MANUAL) 0.2 K/L (test code = 0181258) [facility] [id number] 12:45:00 Test Item Value Reference Range Interpretation [...] S NOT APPLICABLE FOR DIALYSIS PATIEN TS. Curb Attendant ID - MARLO [id number] 12:45:00 Test Item Value Reference Range Interpretation Comments MAGNESIUM (BEAKER) (test code = 2.2 mg/dL 1.6-2.6 627) Curb Attendant ID - MARLO CHEPATIC FUNCTION [id number] 12:45:00 Test Item Value Reference Range Interpretation [...] (test code = 17 U/L 6-55 347) Curb Attendant ID - MARLO CLACTATE DEHYDROGENASE (LDH)2021-02-28 12:45:00 Test Item Value Reference Range Interpretation Comments LACTATE DEHYDROGENASE (BEAKER) (test 235 U/L 125-220 H code = 635) Curb Attendant ID - MARLO CPROTHROMBIN TIME/[id number] 12:28:00 Test Item Value Reference Range Interpretation Comments PROTIME (BEAKER) 23.1 seconds 11.9-14.2 H (test code = 759) INR (BEAKER) (test 2.13 See_Comment [Automat ed message] code = 370) The system [facility] generated this result transmitted ref erence range: [...] mechanical heart valves.CBC W/PLT COUNT & AUTO [id number] 12:27:00 Test Item Value Reference Range Interpretation [...] (BEAKER) (test code = 2801) VASCULAR DIAGRAM -[id number] 11:35:13Ordered by an unspecified provider.[facility]OLIC [id number] 08:53:00 Test Item Value Reference Range Interpretation [...] S NOT APPLICABLE FOR DIALYSIS PATIEN TS. Curb Attendant ID - JOSE [id number] 08:53:00 Test Item Value Reference Range Interpretation Comments MAGNESIUM (BEAKER) (test code = 2.1 mg/dL 1.6-2.6 627) Curb Attendant ID - JOSE MHEPATIC FUNCTION [id number] 08:53:00 Test Item Value Reference Range Interpretation [...] (test code = 15 U/L 6-55 347) Curb Attendant ID - JOSE MLACTATE DEHYDROGENASE (LDH)2021-01-17 08:53:00 Test Item Value Reference Range Interpretation Comments LACTATE DEHYDROGENASE (BEAKER) (test 246 U/L 125-220 H code = 635) Curb Attendant ID - JOSE MPROTHROMBIN TIME/[id number] 08:46:00 Test Item Value Reference Range Interpretation Comments PROTIME (BEAKER) 24.8 seconds 11.9-14.2 H (test code = 759) INR (BEAKER) (test 2.31 See_Comment [Automat ed message] code = 370) The system [facility] generated this result transmitted ref erence range: [...] mechanical heart valves.CBC W/PLT COUNT & AUTO [id number] 08:40:00 Test Item Value Reference Range Interpretation [...] (BEAKER) (test code = 2801) BASIC METABOLIC [id number] 11:06:00 Test Item Value Reference Range Interpretation [...] S NOT APPLICABLE FOR DIALYSIS PATIEN TS. Curb Attendant ID - MARLO [id number] 11:06:00 Test Item Value Reference Range Interpretation Comments MAGNESIUM (BEAKER) (test code = 1.9 mg/dL 1.6-2.6 627) Curb Attendant ID - MARLO CHEPATIC FUNCTION [id number] 11:06:00 Test Item Value Reference Range Interpretation [...] (test code = 15 U/L 6-55 347) Curb Attendant ID - MARLO CLACTATE DEHYDROGENASE (LDH)2020-12-20 11:06:00 Test Item Value Reference Range Interpretation Comments LACTATE DEHYDROGENASE (BEAKER) (test 267 U/L 125-220 H code = 635) Curb Attendant ID - MARLO CPROTHROMBIN TIME/[id number] 11:00:00 Test Item Value Reference Range Interpretation [...] mechanical heart valves.CBC W/PLT COUNT & AUTO [id number] 10:47:00 Test Item Value Reference Range Interpretation [...] code = 2801) CARDIAC CATH REPORT - [id number] 13:45:58Ordered by an unspecified provider. [facility] [id number] 10:26:00 Test Item Value Reference Range Interpretation Comments PROTEIN, TOTAL (MANUAL) (test code 7.4 gm/dL = 4061186) ALBUMIN (MANUAL) (test code = 2.9 g/dL ) ALK PHOS (MANUAL) (test code = 101 U/L ) BILIRUBIN TOTAL (MANUAL) (test 0.7 mg/dL code = 8902914) SODIUM (MANUAL) (test code = 139 meq/L 2297110) POTASSIUM (MANUAL) (test code = 3.5 meq/L 0296353) CHLORIDE (MANUAL) (test code = 101 meq/L ) CO2 (MANUAL) (test code = 5204499) 33 meq/L BUN (test code = 3094-0) 33 mg/dL 4-21 A CREATININE (MANUAL) (test code = 1.35 mg/dL ) GLUCOSE (MANUAL) (test code = 139 mg/dL ) CALCIUM (MANUAL) (test code = 8.6 mg/dL ) AST (MANUAL) (test code = 4813856) 23 U/L ALT (MANUAL) (test code = 5315641) 32 U/L Lab Interpretation (test code = Abnormal 84719-1) [facility] [id number] 11:51:00 Test Item Value Reference Range Interpretation Comments POC-Glucose Meter (test 265 mg/dL 70-110 H : TE STED AT [facility] code = 1538) [address] [facility], [address]: Curb Attendant/Techni teresa ID = [id number] for LOU SARAVIA Lab Interpretation (test Abnormal code = 79729-3) [facility]-GLUCOSE [id number] 11:51:00 Test Item Value Reference Range Interpretation Comments POC-GLUCOSE METER 265 mg/dL 70-110 H [facility] (test code = [facility], 1538) [address]: Curb Attendant/Techni teresa ID = [id number] for TO LOU MEJIA POCT-GLUCOSE [id number] 08:59:00 Test Item Value Reference Range Interpretation Comments POC-GLUCOSE METER 249 mg/dL 70-110 H : [facility] ([facility]ER[facility] (test code = [facility], 1538) [address]: Curb Attendant/Techni teresa ID = [id number] for TO LOU MEJIA BASIC METABOLIC [id number] 01:47:00 Test Item Value Reference Range Interpretation [...] S NOT APPLICABLE FOR DIALYSIS PATIEN TS. Curb Attendant ID - ADMINCBC (Hemogram only)2020-12-03 01:32:00 Test Item Value Reference Range Interpretation Comments WBC (test code = 6690-2) 11.3 See_Comment H [A utomated message] The system [facility] generated this result transmitted ref erence range: 3.5 - 10 .5 K/L. The refe rence range was not u sed to interpret this result as normal/abnor mal. RBC (test code = 789-8) 5.34 See_Comment [Au tomated message] The system [facility] generated this result transmitted ref erence range: 4.63 - 6 .08 M/L. The refe rence range was not u sed to interpret this result as normal/abnor mal. MCHC (test code = 786-4) 31.9 See_Comment L [A utomated message] The system [facility] generated this result transmitted ref erence range: [...] L [Aut omated message] 777-3) The system [facility] generated this result transmitted ref erence range: 150 - 45 0 K/CU MM. The referen ce range was not u sed to interpret this result as normal/abnor mal. MPV (test code = 11.6 fL 9.4-12.4 73459-1) nRBC (test code = 413) 0 See_Comment [Aut omated message] The system [facility] generated this result transmitted ref erence range: 0 - 0 /1 00 WBC. The refere nce range was not u sed to interpret this result as normal/abnor mal. Lab Interpretation (test Abnormal code = 16996-5) [facility] (HEMOGRAM ONLY)2020-12-03 01:32:00 Test Item Value Reference [...] 0-0 (BEAKER) (test code = 413) PROTHROMBIN [id number] 00:48:00 Test Item Value Reference Range Interpretation [...] is2.5-3.5 for patients wiht mechanical heart valves.POCT-GLUCOSE [id number] 21:48:00 Test Item Value Reference Range Interpretation Comments POC-GLUCOSE METER 266 mg/dL 70-110 H : TESTED [place] [address] (BEAKER) (test code = [facility], 1538) [address]: Curb Attendant/Techni teresa ID = [id number] for DIANE SEGURA POC ACTIVATED CLOTTING [id number] 18:14:00 Test Item Value Reference Range Interpretation Comments Activated Clotting Time 301 sec : 74 -137 seconds, (test code = 441) Baseline: TESTED AT [address], [address]: Curb Attendant/Techni teresa ID = [id number] for EMIL BOBBY [id number] 18:14:00 Test Item Value Reference Range Interpretation Comments ACTIVATED CLOTTING TIME 301 sec : 74 -137 seconds, (BEAKER) (test code = Baseli ne: TESTED AT 441) [address], [address]: Curb Attendant/Techni teresa ID = [id number] for EMIL BOBBY [id number] 17:16:00 Test Item Value Reference Range Interpretation Comments ACTIVATED CLOTTING TIME 456 sec : 74 -137 seconds, (BEAKER) (test code = Baseli ne: TESTED AT 441) [address], [address]: Curb Attendant/Techni teresa ID = [id number] for GARRISON VIDALES [id number] 17:02:00 Test Item Value Reference Range Interpretation Comments ACTIVATED CLOTTING TIME 417 sec : 74 -137 seconds, (BEAKER) (test code = Baseli ne: TESTED AT 441) [address], [address]: Curb Attendant/Techni teresa ID = [id number] for GARRISON VIDALES ECG 12 [id number] 13:54:26Interface, External Ris In - 12/02/2020 1:54 PM CSTVentricular Rate 62 BPMAtrial Rate 58 BPMQRS Duration 182 msQ-T Interval 516 msQTC Calculation([place]) 523 msR [place] -86 degreesT [place] 65 degreesav pac ingConfirmed by MD Lund Roberto ([id number]) on 12/02/2020 1:54:24 [facility] HospitalBASIC METABOLIC [id number] 10:33:00 Test Item Value Reference Range Interpretation [...] S NOT APPLICABLE FOR DIALYSIS PATIEN TS. 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 Mitral Valve Mild MV leaflet thickening. Ljsh-ch-vuhisbez mitral regurgitation. Tricuspid Valve Mild tricuspid regurgitation. Estimated peak systolic PA pressure is 20-25 mmHg (normal range) . Pulmonic Valve Normal PV structure and function by limited views and Doppler. Aorta Aortic root size (SInus of Valsalva diameter) is normal . Pericardium No evidence of pericardial effusion. IVC/SVC/PA/PV/Pleural The estimated RA pressure by IVC dynamics 0-5mmHg . [facility] Circ Support A HeartMate IIleft ventricular [...] TR Velocity: 2.34 m/s TR Gradient: [facility] 2020-[facility]-22 11:30:00 Test Item Value Reference Range Interpretation Comments MAGNESIUM (BEAKER) (test code = 1.5 mg/dL 1.6-2.6 L 627) Curb Attendant ID - JOSE MHEPATIC FUNCTION [id number] 11:30:00 Test Item Value Reference Range Interpretation [...] (test code = 26 U/L 6-55 347) Curb Attendant ID - SHRUTHI Hayward ID - JOSE MBASIC METABOLIC [id number] 10:03:00 Test Item Value Reference Range Interpretation [...] S NOT APPLICABLE FOR DIALYSIS PATIEN TS. Curb Attendant ID - SHRUTHI LLACTATE DEHYDROGENASE (LDH)2020-11-22 10:03:00 Test Item Value Reference Range Interpretation Comments LACTATE DEHYDROGENASE (BEAKER) (test 292 U/L 125-220 H code = 635) Curb Attendant ID Shyanne SHRUTHI LPROTHROMBIN TIME/[id number] 08:50:00 Test Item Value Reference Range Interpretation [...] mechanical heart valves.CBC W/PLT COUNT & AUTO [id number] 08:41:00 Test Item Value Reference Range Interpretation [...] PERCENT (BEAKER) (test code = 2801) PROTHROMBIN TIME/[id number] 11:35:00 Test Item Value Reference Range Interpretation [...] INR is2.5-3.5 for patients wiht mechanical heart valves.[id number] 11:29:00 Test Item Value Reference Range Interpretation Comments MAGNESIUM (BEAKER) (test code = 1.6 mg/dL 1.6-2.6 627) Curb Attendant ID - [facility]LO [facility] [id number] 11:29:00 Test Item Value Reference Range Interpretation [...] S NOT APPLICABLE FOR DIALYSIS PATIEN TS. Curb Attendant ID - MARLO [facility] FUNCTION [id number] 11:29:00 Test Item Value Reference Range Interpretation [...] (test code = 22 U/L 6-55 347) Curb Attendant ID - MARLO CLACTATE DEHYDROGENASE (LDH)2020-08-16 11:29:00 Test Item Value Reference Range Interpretation Comments LACTATE DEHYDROGENASE (BEAKER) (test 263 U/L 125-220 H code = 635) Curb Attendant ID - MARLO CCBC W/PLT COUNT & AUTO [id number] 11:08:00 Test Item Value Reference Range Interpretation [...] PERCENT (BEAKER) (test code = 2801) PROTHROMBIN TIME/[id number] 13:22:00 Test Item Value Reference Range Interpretation [...] 308 U/L 125-220 H code = 635) Curb Attendant ID - [id number] 12:50:00 Test Item Value Reference Range Interpretation Comments MAGNESIUM (BEAKER) (test code = 1.7 mg/dL 1.6-2.6 627) Curb Attendant ID - EMERSONCOMPREHENSIVE METABOLIC [id number] 10:35:00 Test Item Value Reference Range Interpretation [...] S NOT APPLICABLE FOR DIALYSIS PATIEN TS. Curb Attendant ID - EMERSONCBC W/PLT COUNT & AUTO [id number] 10:20:00 Test Item Value Reference Range Interpretation [...] (BEAKER) (test code = hemoly zed 635) Curb Attendant ID KENA [id number] 12:29:00 Test Item Value Reference Range Interpretation Comments MAGNESIUM (BEAKER) 1.8 mg/dL 1.6-2.6 Specimen moderately (test code = 627) hemolyzed Curb Attendant [facility] FBASIC METABOLIC [id number] 12:29:00 Test Item Value Reference Range Interpretation [...] S NOT APPLICABLE FOR DIALYSIS PATIEN TS. Curb Attendant GLO ESCUDERO FHEPATIC FUNCTION [id number] 12:29:00 Test Item Value Reference Range Interpretation [...] Specimen moderately (test code = 347) hemolyzed Curb Attendant GLO ESCUDERO FPROTHROMBIN TIME/[id number] 12:02:00 Test Item Value Reference Range Interpretation [...] mechanical heart valves.CBC W/PLT COUNT & AUTO [id number] 11:55:00 Test Item Value Reference Range Interpretation [...] PERCENT (BEAKER) (test code = 2801) PROTHROMBIN TIME/[id number] 10:09:00 Test Item Value Reference Range Interpretation [...] (BEAKER) (test code = hemoly zed 635) [id number] 10:07:00 Test Item Value Reference Range Interpretation Comments MAGNESIUM (BEAKER) 1.8 mg/dL 1.6-2.6 Specimen slightly (test code = 627) hemolyzed BASIC METABOLIC [id number] 10:07:00 Test Item Value Reference Range Interpretation [...] NOT APPLICABLE FOR DIALYSIS PATIEN TS. LIPID [id number] 10:07:00 Test Item Value Reference Range Interpretation [...] 130-159 High 160-189 Very High >=190HEPATIC FUNCTION [id number] 10:07:00 Test Item Value Reference Range Interpretation [...] 347) hemolyzed CBC W/PLT COUNT & AUTO [id number] 09:44:00 Test Item Value Reference Range Interpretation [...] PERCENT (BEAKER) (test code = 2801) PROTHROMBIN TIME/[id number] 10:26:00 Test Item Value Reference Range Interpretation [...] INR is2.5-3.5 for patients wiht mechanical heart valves.[id number] 10:24:00 Test Item Value Reference Range Interpretation Comments MAGNESIUM (BEAKER) (test code = 1.5 mg/dL 1.6-2.6 L 627) BASIC METABOLIC [id number] 10:24:00 Test Item Value Reference Range Interpretation [...] APPLICABLE FOR DIALYSIS PATIEN TS. HEPATIC FUNCTION [id number] 10:24:00 Test Item Value Reference Range Interpretation [...] = 635) CBC W/PLT COUNT & AUTO [id number] 10:08:00 Test Item Value Reference Range Interpretation [...] PERCENT (BEAKER) (test code = 2801) TISSUE [id number] 19:33:00Surgical Pathology Report Case: [id number] Authorizing Provider: Juan Carlos Ely MD Collected: 04/09/2019 1722 Ordering Location: [facility] Radiology Angio Received: 04/10/2019 0740 Pathologist: Arun Garibay MD Specimen: Biopsy, Liver, liver fibrosis LIVER, TRANSJUGULAR NEEDLE BIOPSY- CIRRHOSIS- SINUSOIDAL DILATATION, CONSISTENT WITH CONGESTIVE HEPATOPATHY Signing Pathologist Direct Phone Line: [phone] signed by Arun Garibay MD on 04/10/2019 at 7:33 [id number], [id number] [id number] C, s/p treatment with SVR in 2011, [...] evaluated Immunohistochemistry technical testing was performed at [facility], Pathology Laboratory where it was developed [...] perform high complexity clinical laboratory testing.IAN, TRANSCATHETER [id number] 18:09:00[place] [phone] (PH)LABS: [facility] AYVOGNLMDB[address] [place] [address] [phone] (PH) [phone] (FAX)Attain pressuresSpecify Organ:- >liverReason for Exam:->abnormal liver imaging, liver fibrosisFINAL REPORT Transjugular liver biopsy, 04/09/2019. History: CHF, evaluation for abnormal liver function. Modality: Fluoroscopy. Sedation: Versed 1 mg and fentanyl 50 mcg was given intravenously for conscious sedation. Vital signs were monitored throughout the procedure by a nurse, and remained stable. Physician intra-service time was 30 min. Customer Success Specialist: Vandana. Pharmaceutical Assistant: None. Approach: Right internal jugular vein Estimated [...] needle into the right atrium. A 4 [place] micropuncture sheath was placed. A 0.035 inch J-wire was placed through the micropuncture sheath and the sheath was exchanged for a 9 [place] sheath. A 5 [place] angled tip catheter was used to select the right hepatic vein. Venogram was performed. Pressures were obtained through the catheter with measurements as follows: wedged hepatic - 20 mmHg, free hepatic - 16, and right atrium - 14. A long metal reinforced 7 Citizen [place] sheath was placed through the 9 [place] sheath into the right hepatic vein. A [...] RossMDReport Verified Date/Time: 04/09/2019 18:09:32 Reading Location: [place] [address] Angio Body Reading Room COMPREHENSIVE METABOLIC PANEL [...] S NOT APPLICABLE FOR DIALYSIS PATIEN TS. [id number] 12:13:00 Test Item Value Reference Range Interpretation Comments PARTIAL THROMBOPLASTIN TIME 31.3 seconds 22.5-36.0 (BEAKER) (test code = 760) PROTHROMBIN TIME/[id number] 12:12:00 Test Item Value Reference Range Interpretation [...] (test code = 2801) TSH/FREE T4 IF [id number] 11:07:00 Test Item Value Reference Range Interpretation Comments THYROID STIMULATING HORMONE 4.38 uIU/mL 0.35-4.94 (BEAKER) (test code = 772) PROTHROMBIN [id number] 10:59:00 Test Item Value Reference Range Interpretation Comments PROTIME (BEAKER) (test code = 20.3 seconds 11.7-14.7 H 759) INR (BEAKER) (test code = 370) 1.7 <=5.9 RECOMMENDED COUMADIN/WARFARIN INR THERAPY RANGESSTANDARD DOSE: 2.0 - 3.0 Includes: PROPHYLAXIS forvenous thrombosis, systemic embolization; TREATMENT for venous thrombosis and/or pulmonary embolus.HIGH RISK: Target INR is 2.5-3.5 for patients with mechanical heart valves.[id number] 10:49:00 Test Item Value Reference Range Interpretation Comments MAGNESIUM (BEAKER) (test code = 1.6 mg/dL 1.6-2.6 627) BASIC METABOLIC [id number] 10:49:00 Test Item Value Reference Range Interpretation [...] APPLICABLE FOR DIALYSIS PATIEN TS. HEPATIC FUNCTION [id number] 10:49:00 Test Item Value Reference Range Interpretation [...] = 2590) CBC W/PLT COUNT & AUTO [id number] 10:32:00 Test Item Value Reference Range Interpretation [...] 0-1 PERCENT (BEAKER) (test code = 2801) [id number] 11:15:00 Test Item Value Reference Range Interpretation [...] 48 % 20-55 (test code = 2590) [id number] 10:52:00 Test Item Value Reference Range Interpretation Comments MAGNESIUM (BEAKER) (test code = 1.8 mg/dL 1.6-2.6 627) BASIC METABOLIC [id number] 10:52:00 Test Item Value Reference Range Interpretation [...] APPLICABLE FOR DIALYSIS PATIEN TS. HEPATIC FUNCTION [id number] 10:52:00 Test Item Value Reference Range Interpretation [...] U/L 125-220 H code = 635) PROTHROMBIN TIME/[id number] 10:37:00 Test Item Value Reference Range Interpretation [...] PERCENT (BEAKER) (test code = 2801) POCT-GLUCOSE [id number] 12:39:00 Test Item Value Reference Range Interpretation Comments POC-GLUCOSE METER 268 mg/dL 70-110 H TESTED AT [facility] 6720 (BEAKER) (test code = CHULA Craig [facility] 1538) [address] HEMOGLOBIN [id number] 09:05:00 Test Item Value Reference Range Interpretation Comments HEMOGLOBIN A1C (BEAKER) (test code = 6.0 % 4.3-6.1 368) RAD, CHEST, 1 VIEW, NON [id number] 08:45:00[place] [phone] ()LABS: [facility] XUUN[address]CCXT[address] [place] [address] [phone] (PH) [phone] (FAX)Reason for exam:->LVADFINAL REPORT HISTORY : LVAD. Comparison: 11/21/2017 Comment: Single portable view of the chest was obtained. The cardiac silhouette size is enlarged. LVAD and left-sided multileadICD are in place. No pneumothorax or pleural effusion is seen. No lytic or blastic abnormalities areappreciated. Some fixation hardware is seen in the lower cervical spine. The patient is status post sternotomy. Signed: Ric Bass MDReport Verified Date/Time: 09/12/2018 08:45:58 Reading Location: [facility] Diagnostic Imaging Reading Room - [place] [address] POCT- GLUCOSE [id number] 07:56:00 Test Item Value Reference Range Interpretation Comments POC-GLUCOSE METER 178 mg/dL 70-110 H TESTED AT [facility] 6720 (BEAKER) (test code = [place] 1538) [address] PROTHROMBIN [id number] 03:25:00 Test Item Value Reference Range Interpretation Comments PROTIME (BEAKER) (test code = 18.2 seconds 11.7-14.7 H 759) INR (BEAKER) (test code = 370) 1.5 <=5.9 RECOMMENDED COUMADIN/WARFARIN INR THERAPY RANGESSTANDARD DOSE: 2.0 - 3.0 Includes: PROPHYLAXIS forvenous thrombosis, systemic embolization; TREATMENT for venous thrombosis and/or pulmonary embolus.HIGH RISK: Target INR is 2.5-3.5 for patients with mechanical heart valves.[id number] 03:13:00 Test Item Value Reference Range Interpretation Comments PHOSPHORUS (BEAKER) (test code = 2.4 mg/dL 2.3-4.7 604) [id number] 03:13:00 Test Item Value Reference Range Interpretation Comments MAGNESIUM (BEAKER) (test code = 2.0 mg/dL 1.6-2.6 627) BASIC METABOLIC [id number] 03:13:00 Test Item Value Reference Range Interpretation [...] APPLICABLE FOR DIALYSIS PATIEN TS. HEPATIC FUNCTION [id number] 03:13:00 Test Item Value Reference Range Interpretation [...] code = 635) LACTIC ACID, VENOUS, WHOLE [id number] 03:03:00 Test Item Value Reference Range Interpretation Comments LACTATE BLOOD VENOUS 0.9 mmol/L 0.5-2.2 Specime n slightly (2) (BEAKER) (test hemolyzed code = 2872) Effective 03/22/2016: Units/Reference Range ChangeNew: 0.5-2.2 mmol/L Previous: 5-20 mg/dLCBC W/PLT COUNT & AUTO [id number] 02:41:00 Test Item Value Reference Range Interpretation [...] PERCENT (BEAKER) (test code = 2801) POCT-GLUCOSE [id number] 21:39:00 Test Item Value Reference Range Interpretation Comments POC-GLUCOSE METER 177 mg/dL 70-110 H TESTED AT [facility] 6720 (BEAKER) (test code = [place] 1538) [address] TSH/FREE T4 IF [id number] 19:50:00 Test Item Value Reference Range Interpretation Comments THYROID STIMULATING HORMONE 3.30 uIU/mL 0.35-4.94 (BEAKER) (test code = 772) VITAMIN B12 AND [id number] 19:50:00 Test Item Value Reference Range Interpretation Comments VITAMIN B12 (BEAKER) (test code = 528 pg/mL 213-288 144) FOLATE (BEAKER) (test code = 362) 14.8 ng/mL >=7.0 CT, BRAIN, WITHOUT [id number] 19:41:00[place] [id number] ()LABS: [facility] AND WKITGIBKDU[address] [place] [address] [phone] () [phone] (FAX)Reason for exam:->Dizziness for hours, evaluate for [...] acute abnormality, MRI is advised.Signed: Blaire Marsh MDReport Verified Date/Time: 09/11/2018 19:41:46 Reading Location: [facility] Radiology Reading Room 07:41 [id number] 19:19:00 Test Item Value Reference Range Interpretation Comments MAGNESIUM (BEAKER) (test code = 2.1 mg/dL 1.6-2.6 627) BASIC METABOLIC [id number] 19:19:00 Test Item Value Reference Range Interpretation [...] APPLICABLE FOR DIALYSIS PATIEN TS. HEPATIC FUNCTION [id number] 19:19:00 Test Item Value Reference Range Interpretation [...] code = 53 U/L 6-55 347) PROTHROMBIN [id number] 19:09:00 Test Item Value Reference Range Interpretation [...] PERCENT (BEAKER) (test code = 2801) POCT-GLUCOSE [id number] 17:34:00 Test Item Value Reference Range Interpretation Comments POC-GLUCOSE METER 141 mg/dL 70-110 H TESTED AT [facility] 6720 (BEAKER) (test code = CHULA Craig [facility] 1538) [address] LIPID [id number] 10:35:00 Test Item Value Reference Range Interpretation [...] 100-129 Borderline 130-159 High 160-189 Very High >=[id number] 08:24:00 Test Item Value Reference Range Interpretation Comments MAGNESIUM (BEAKER) (test code = 2.2 mg/dL 1.6-2.6 627) BASIC METABOLIC [id number] 08:24:00 Test Item Value Reference Range Interpretation [...] APPLICABLE FOR DIALYSIS PATIEN TS. HEPATIC FUNCTION [id number] 08:24:00 Test Item Value Reference Range Interpretation [...] U/L 125-220 H code = 635) PROTHROMBIN TIME/[id number] 08:13:00 Test Item Value Reference Range Interpretation [...] 0-1 PERCENT (BEAKER) (test code = 2801) [id number] 12:54:00 Test Item Value Reference Range Interpretation Comments FERRITIN (BEAKER) (test code = 361) 475 ng/mL 5-275 H [id number] 12:33:00 Test Item Value Reference Range Interpretation [...] 35 % 20-55 (test code = 2590) [id number] 12:23:00 Test Item Value Reference Range Interpretation Comments MAGNESIUM (BEAKER) (test code = 1.7 mg/dL 1.6-2.6 627) BASIC METABOLIC [id number] 12:23:00 Test Item Value Reference Range Interpretation [...] APPLICABLE FOR DIALYSIS PATIEN TS. HEPATIC FUNCTION [id number] 12:23:00 Test Item Value Reference Range Interpretation [...] U/L 125-220 H code = 635) PROTHROMBIN [id number] 11:59:00 Test Item Value Reference Range Interpretation [...] 0-1 PERCENT (BEAKER) (test code = 2801) [id number] 11:01:00 Test Item Value Reference Range Interpretation [...] 48 % 20-55 (test code = 2590) [id number] 10:46:00 Test Item Value Reference Range Interpretation Comments MAGNESIUM (BEAKER) (test code = 2.0 mg/dL 1.6-2.6 627) BASIC METABOLIC [id number] 10:46:00 Test Item Value Reference Range Interpretation [...] APPLICABLE FOR DIALYSIS PATIEN TS. HEPATIC FUNCTION [id number] 10:46:00 Test Item Value Reference Range Interpretation [...] U/L 125-220 H code = 635) PROTHROMBIN TIME/[id number] 10:24:00 Test Item Value Reference Range Interpretation [...] 0-1 PERCENT (BEAKER) (test code = 2801) [id number] 10:56:00 Test Item Value Reference Range Interpretation Comments FERRITIN (BEAKER) (test code = 361) 236 ng/mL 5-275 [id number] 10:48:00 Test Item Value Reference Range Interpretation Comments MAGNESIUM (BEAKER) (test code = 1.8 mg/dL 1.6-2.6 627) BASIC METABOLIC [id number] 10:48:00 Test Item Value Reference Range Interpretation [...] APPLICABLE FOR DIALYSIS PATIEN TS. HEPATIC FUNCTION [id number] 10:48:00 Test Item Value Reference Range Interpretation [...] 296 U/L 125-220 H code = 635) [id number] 10:34:00 Test Item Value Reference Range Interpretation Comments TRANSFERRIN (BEAKER) (test code = 248 mg/dL 174-382 541) [id number] 10:34:00 Test Item Value Reference Range Interpretation [...] 20-55 (test code = 2590) PLASMA FREE [id number] 10:28:00 Test Item Value Reference Range Interpretation Comments HEMOGLOBIN PLASMA (BEAKER) (test 80.0 mg/dl 0.0-30.0 H code = 1054) PROTHROMBIN [id number] 10:22:00 Test Item Value Reference Range Interpretation [...] 0-1 PERCENT (BEAKER) (test code = 2801) [id number] 10:33:00 Test Item Value Reference Range Interpretation Comments MAGNESIUM (BEAKER) (test code = 1.7 mg/dL 1.6-2.6 627) BASIC METABOLIC [id number] 10:33:00 Test Item Value Reference Range Interpretation [...] APPLICABLE FOR DIALYSIS PATIEN TS. HEPATIC FUNCTION [id number] 10:33:00 Test Item Value Reference Range Interpretation [...] 308 U/L 125-220 H code = 635) [id number] 10:29:00 Test Item Value Reference Range Interpretation Comments PREALBUMIN (BEAKER) (test code = 16 mg/dL 14-45 586) PLASMA FREE [id number] 10:10:00 Test Item Value Reference Range Interpretation Comments HEMOGLOBIN PLASMA (BEAKER) (test 30.0 mg/dl 0.0-30.0 code = 1054) PROTHROMBIN [id number] 09:45:00 Test Item Value Reference Range Interpretation [...] U/L 125-220 H code = 635) POCT-GLUCOSE [id number] 12:13:00 Test Item Value Reference Range Interpretation Comments POC-GLUCOSE METER 270 mg/dL 70-110 H TESTED AT [facility] 6720 (BEAKER) (test code = CHULA [address] [place] 1538) [address] POCT-GLUCOSE [id number] 08:13:00 Test Item Value Reference Range Interpretation Comments POC-GLUCOSE METER 188 mg/dL 70-110 H TESTED AT [facility] 6720 (BEAKER) (test code = CHULA Craig [facility] 1538) [address] BASIC METABOLIC [id number] 07:20:00 Test Item Value Reference Range Interpretation [...] 358) GLUCOSE RANDOM 172 mg/dL 70-105 H (BEAKER) (test code = 652) CALCIUM (BEAKER) 8.7 mg/dL 8.4-10.2 (test code = 697) EGFR (BEAKER) (test 78 mL/min/1.73 ESTIMA JENIFER GFR IS code = 1092) sq m NOT ACCURATE CREATININE CLEARANCE IN PREDICTING GLOMERULAR FILTRATION RATE . ESTIMATED GFR I S NOT APPLICABLE FOR DIALYSIS PATIRUMA MULLER. [id number] 06:57:00 Test Item Value Reference Range Interpretation Comments PARTIAL THROMBOPLASTIN TIME 75.9 seconds 22.5-36.0 H (BEAKER) (test code = 760) PROTHROMBIN [id number] 06:56:00 Test Item Value Reference Range Interpretation Comments PROTIME (BEAKER) (test code = 20.9 seconds 11.7-14.7 H 759) INR (BEAKER) (test code = 370) 1.8 <=5.9 RECOMMENDED COUMADIN/WARFARIN INR THERAPY RANGESSTANDARD DOSE: 2.0 - 3.0 Includes: PROPHYLAXIS forvenous thrombosis, systemic embolization; TREATMENT for venous thrombosis and/or pulmonary embolus.HIGH RISK: Target INR is 2.5-3.5 for patients with mechanical heart valves.POCT-GLUCOSE [id number] 21:26:00 Test Item Value Reference Range Interpretation Comments POC-GLUCOSE METER 201 mg/dL 70-110 H TESTED AT [facility] 6720 ([facility]) (test code = CHULA Craig [facility] 1538) [address] POCT-GLUCOSE [id number] 17:22:00 Test Item Value Reference Range Interpretation Comments POC-GLUCOSE METER 342 mg/dL 70-110 H Notified R Ike BARCLAY/TESTED ([facility]) (test code = AT [facility] 6720 [facility] 1538) [facility] [address] POCT-GLUCOSE [id number] 09:17:00 Test Item Value Reference Range Interpretation Comments POC-GLUCOSE METER 280 mg/dL 70-110 H TESTED AT [place] [address] ([facility]) (test code = CHULA Craig [facility] 1538) [address] BASIC METABOLIC [id number] 07:13:00 Test Item Value Reference Range Interpretation [...] S NOT APPLICABLE FOR DIALYSIS PATIEN TS. [id number] 06:59:00 Test Item Value Reference Range Interpretation Comments PARTIAL THROMBOPLASTIN TIME 70.0 seconds 22.5-36.0 H (BEAKER) (test code = 760) PROTHROMBIN [id number] 06:58:00 Test Item Value Reference Range Interpretation [...] 0-0 (BEAKER) (test code = 413) POCT-GLUCOSE [id number] 22:52:00 Test Item Value Reference Range Interpretation Comments POC-GLUCOSE METER 267 mg/dL 70-110 H TESTED AT [facility] 6720 (BEAKER) (test code = [place] 1538) [address] POCT-GLUCOSE [id number] 17:28:00 Test Item Value Reference Range Interpretation Comments POC-GLUCOSE METER 236 mg/dL 70-110 H TESTED AT [place] [id number] (BEAKER) (test code = CHULA [place] 1538) [address] POCT-GLUCOSE [id number] 12:11:00 Test Item Value Reference Range Interpretation Comments POC-GLUCOSE METER 365 mg/dL 70-110 H Notified Rafa Ramires MD/TESTED (BEAKER) (test code = AT [facility] [address] [place] 1538) [place] [address] CBC (HEMOGRAM ONLY)2017-11-29 08:00:00 Test [...] H (BEAKER) (test code = 413) POCT-GLUCOSE [id number] 07:56:00 Test Item Value Reference Range Interpretation Comments POC-GLUCOSE METER 176 mg/dL 70-110 H TESTED AT [place] [address] (BEAKER) (test code = [place]UL[place] 1538) [address] BASIC METABOLIC [id number] 05:49:00 Test Item Value Reference Range Interpretation [...] S NOT APPLICABLE FOR DIALYSIS PATIRUMA TS. [id number] 05:34:00 Test Item Value Reference Range Interpretation Comments PARTIAL THROMBOPLASTIN TIME 90.9 seconds 22.5-36.0 H (BEAKER) (test code = 760) PROTHROMBIN [id number] 05:32:00 Test Item Value Reference Range Interpretation Comments PROTIME (BEAKER) (test code = 19.8 seconds 11.7-14.7 H 759) INR (BEAKER) (test code = 370) 1.7 <=5.9 RECOMMENDED COUMADIN/WARFARIN INR THERAPY RANGESSTANDARD DOSE: 2.0 - 3.0 Includes: PROPHYLAXIS forvenous thrombosis, systemic embolization; TREATMENT for venous thrombosis and/or pulmonary embolus.HIGH RISK: Target INR is 2.5-3.5 for patients with mechanical heart valves.POCT-GLUCOSE [id number] 21:35:00 Test Item Value Reference Range Interpretation Comments POC-GLUCOSE METER 218 mg/dL 70-110 H TESTED AT [facility] 6720 ([facility]) (test code = [facility] 1538) [address] POCT-GLUCOSE [id number] 16:50:00 Test Item Value Reference Range Interpretation Comments POC-GLUCOSE METER 199 mg/dL 70-110 H TESTED AT [facility] 6720 ([facility]) (test code = [facility] 1538) 13449 POCT-GLUCOSE [id number] 12:06:00 Test Item Value Reference Range Interpretation Comments POC-GLUCOSE METER 208 mg/dL 70-110 H TESTED AT [facility] 6720 (BEAKER) (test code = CHULA Craig [facility] 1538) 86[address] POCT-GLUCOSE [id number] 07:57:00 Test Item Value Reference Range Interpretation Comments POC-GLUCOSE METER 216 mg/dL 70-110 H TESTED AT [place] [address] (BEAKER) (test code = CHULA Craig [facility] 1538) [address] CBC (HEMOGRAM ONLY)2017-11-28 06:50:00 Test Item Value Reference Range Interpretation Comments WHITE BLOOD CELL COUNT (BEAKER) 7.2 K/ L 3.5-10.5 (test code = [...] (BEAKER) (test code = 413) BASIC METABOLIC [id number] 05:44:00 Test Item Value Reference Range Interpretation [...] S NOT APPLICABLE FOR DIALYSIS PATIEN TS. [id number] 05:42:00 Test Item Value Reference Range Interpretation Comments PARTIAL THROMBOPLASTIN TIME 88.4 seconds 22.5-36.0 H (BEAKER) (test code = 760) PROTHROMBIN TIME/[id number] 05:41:00 Test Item Value Reference Range Interpretation Comments PROTIME (BEAKER) (test code = 17.8 seconds 11.7-14.7 H 759) INR (BEAKER) (test code = 370) 1.5 <=5.9 RECOMMENDED COUMADIN/WARFARIN INR THERAPY RANGESSTANDARD DOSE: 2.0 - 3.0 Includes: PROPHYLAXIS forvenous thrombosis, systemic embolization; TREATMENT for venous thrombosis and/or pulmonary embolus.HIGH RISK: Target INR is 2.5-3.5 for patients with mechanical heart valves.[id number] 23:10:00 Test Item Value Reference Range Interpretation Comments PARTIAL THROMBOPLASTIN TIME 72.0 seconds 22.5-36.0 H (BEAKER) (test code = 760) POCT-GLUCOSE [id number] 21:24:00 Test Item Value Reference Range Interpretation Comments POC-GLUCOSE METER 244 mg/dL 70-110 H TESTED AT [facility] 6720 ([facility]) (test code = [place] 1538) [address] POCT-GLUCOSE [id number] 17:33:00 Test Item Value Reference Range Interpretation Comments POC-GLUCOSE METER 119 mg/dL 70-110 H TESTED AT [place] [address] ([facility]) (test code = [place] 1538) [address] [id number] 16:23:00 Test Item Value Reference Range Interpretation Comments PARTIAL THROMBOPLASTIN TIME 54.0 seconds 22.5-36.0 H (BEAKER) (test code = 760) [id number] 13:58:00 Test Item Value Reference Range Interpretation Comments PARTIAL THROMBOPLASTIN TIME 122.2 seconds 22.5-36.0 H (BEAKER) (test code = 760) CBC (HEMOGRAM ONLY)2017-11-27 [...] H (BEAKER) (test code = 413) POCT-GLUCOSE [id number] 12:29:00 Test Item Value Reference Range Interpretation Comments POC-GLUCOSE METER 224 mg/dL 70-110 H TESTED AT [place] [address] ([facility]) (test code = [place] 1538) [address] HEMOGLOBIN [id number] 10:32:00 Test Item Value Reference Range Interpretation Comments HEMOGLOBIN A1C (BEAKER) (test code = 7.0 % 4.3-6.1 H 368) POCT-GLUCOSE [id number] 08:37:00 Test Item Value Reference Range Interpretation Comments POC-GLUCOSE METER 262 mg/dL 70-110 H TESTED AT [facility] 6720 (BEAKER) (test code = [place] 1538) [address] BASIC METABOLIC [id number] 06:37:00 Test Item Value Reference Range Interpretation [...] GFR I S NOT APPLICABLE FOR DIALYSIS MUKUL MULLER. [id number] 06:07:00 Test Item Value Reference Range Interpretation Comments PARTIAL THROMBOPLASTIN TIME 110.2 seconds 22.5-36.0 H (BEAKER) (test code = 760) PROTHROMBIN [id number] 05:42:00 Test Item Value Reference Range Interpretation Comments PROTIME (BEAKER) (test code = 15.4 seconds 11.7-14.7 H 759) INR (BEAKER) (test code = 370) 1.2 <=5.9 RECOMMENDED COUMADIN/WARFARIN INR THERAPY RANGESSTANDARD DOSE: 2.0 - 3.0 Includes: PROPHYLAXIS forvenous thrombosis, systemic embolization; TREATMENT for venous thrombosis and/or pulmonary embolus.HIGH RISK: Target INR is 2.5-3.5 for patients with mechanical heart valves.[id number] 23:05:00 Test Item Value Reference Range Interpretation Comments PARTIAL THROMBOPLASTIN TIME 90.2 seconds 22.5-36.0 H (BEAKER) (test code = 760) POCT-GLUCOSE [id number] 21:36:00 Test Item Value Reference Range Interpretation Comments POC-GLUCOSE METER 165 mg/dL 70-110 H TESTED AT [place] [address] ([facility]) (test code = [facility] 1538) [address] [id number] 17:31:00 Test Item Value Reference Range Interpretation Comments PARTIAL THROMBOPLASTIN TIME 81.4 seconds 22.5-36.0 H (AKER) (test code = 760) POCT-GLUCOSE [id number] 16:47:00 Test Item Value Reference Range Interpretation Comments POC-GLUCOSE METER 101 mg/dL 70-110 TESTED AT [place] [address] ([facility]) (test code = [facility] 1538) [address] POCT-GLUCOSE [id number] 11:52:00 Test Item Value Reference Range Interpretation Comments POC-GLUCOSE METER 97 mg/dL 70-110 TESTED AT [place] [address] ([facility]) (test code = [facility] [address] 1538) [id number] 08:26:00 Test Item Value Reference Range Interpretation Comments LIPASE (BEAKER) (test code = 749) 31 U/L 8-78 BASIC METABOLIC [id number] 08:26:00 Test Item Value Reference Range Interpretation [...] APPLICABLE FOR DIALYSIS PATIEN TS. HEPATIC FUNCTION [id number] 08:26:00 Test Item Value Reference Range Interpretation [...] = 22 U/L 5-34 353) ALT (SGPT) (AKER) (test code = 23 U/L 6-55 347) POCT-GLUCOSE [id number] 08:11:00 Test Item Value Reference Range Interpretation Comments POC-GLUCOSE METER 198 mg/dL 70-110 H TESTED AT [facility] 6720 ([facility]) (test code = [place] 1538) [address] [id number] 07:29:00 Test Item Value Reference Range Interpretation Comments PARTIAL THROMBOPLASTIN TIME 102.0 seconds 22.5-36.0 H ([facility]) (test code = 760) PROTHROMBIN [id number] 07:23:00 Test Item Value Reference Range Interpretation Comments PROTIME (AKER) (test code = 15.4 seconds 11.7-14.7 H 759) INR ([facility]) (test code = 370) 1.2 [...] WBC 0-0 (BEAKER) (test code = 413) [id number] 23:49:00 Test Item Value Reference Range Interpretation Comments PARTIAL THROMBOPLASTIN TIME 60.2 seconds 22.5-36.0 H (AKER) (test code = 760) POCT-GLUCOSE [id number] 21:53:00 Test Item Value Reference Range Interpretation Comments POC-GLUCOSE METER 309 mg/dL 70-110 H TESTED AT [facility] 67 ([facility]) (test code = CHULA Craig [facility] 1538) 97368 POCT-GLUCOSE [id number] 17:31:00 Test Item Value Reference Range Interpretation Comments POC-GLUCOSE METER 331 mg/dL 70-110 H TESTED AT [place] [id number] ([facility]) (test code = CHULA Craig [facility] 1538) 86[address] RAD, ABDOMEN/KUB, 1 VIEW [id number] 15:59:00LABS: [facility] [id number] [place] [address] [phone] (PH) (FAX)Reason for exam:->epigastric painFINAL REPORT ONE [...] Nonobstructive bowel gas pattern. Signed: Vicky Brewster MDReport Verified Date/Time: 11/25/2017 15:59:39 Reading Location: [address] Ortho ConsultReading Room [id number] 15:57:00 Test Item Value Reference Range Interpretation Comments PARTIAL THROMBOPLASTIN TIME 100.6 seconds 22.5-36.0 H (BEAKER) (test code = 760) HEMOGLOBIN AND [id number] 15:41:00 Test Item Value Reference Range Interpretation Comments HEMOGLOBIN (BEAKER) (test code = 9.6 GM/DL 13.7-17.5 L 410) HEMATOCRIT (BEAKER) (test code = 30.6 % 40.1-51.0 L 411) POCT-GLUCOSE [id number] 13:13:00 Test Item Value Reference Range Interpretation Comments POC-GLUCOSE METER 290 mg/dL 70-110 H TESTED AT [facility] 6720 [facility] (test code = CHULA Craig [facility] 1538) 32158 POCT-GLUCOSE [id number] 08:57:00 Test Item Value Reference Range Interpretation Comments POC-GLUCOSE METER 198 mg/dL 70-110 H TESTED AT [facility] 6720 [facility] (test code = CHULA Craig [facility] 1538) [address] [id number] 08:26:00 Test Item Value Reference Range Interpretation Comments PARTIAL THROMBOPLASTIN TIME 61.2 seconds 22.5-36.0 H (BEAKER) (test code = 760) BASIC METABOLIC [id number] 05:38:00 Test Item Value Reference Range Interpretation [...] I S NOT APPLICABLE FOR DIALYSIS PATIRUMA KEMP [id number] 05:19:00 Test Item Value Reference Range Interpretation Comments PARTIAL THROMBOPLASTIN TIME 130.0 seconds 22.5-36.0 H (BEAKER) (test code = 760) PROTHROMBIN TIME/[id number] 05:10:00 Test Item Value Reference Range Interpretation [...] MEAN CORPUSCULAR HEMOGLOBIN 23.4 pg 25.7-32.2 L (AKER) (test code = 751) MEAN CORPUSCULAR HEMOGLOBIN CONC 29.6 GM/DL 32.3-36.5 L (AKER) (test code = 752) RED CELL DISTRIBUTION WIDTH 15.7 % 11.6-14.4 H (BEAKER) (test code = 412) PLATELET COUNT (BEAKER) (test 163 K/CU MM 150-450 code = 756) MEAN PLATELET VOLUME (AKER) 9.8 fL 9.4-12.4 (test code = 754) NUCLEATED RED BLOOD CELLS 0 /100 WBC 0-0 ([facility]) (test code = 413) [id number] 22:42:00 Test Item Value Reference Range Interpretation Comments PARTIAL THROMBOPLASTIN TIME 63.8 seconds 22.5-36.0 H ([facility]) (test code = 760) POCT-GLUCOSE [id number] 21:35:00 Test Item Value Reference Range Interpretation Comments POC-GLUCOSE METER 215 mg/dL 70-110 H TESTED AT [place] [address] ([facility]) (test code = CHULA Craig [facility] 1538) 605[address] POCT-GLUCOSE [id number] 17:39:00 Test Item Value Reference Range Interpretation Comments POC-GLUCOSE METER 278 mg/dL 70-110 H TESTED AT [place] [address] ([facility]) (test code = CHULA Craig [facility] 1538) [address] [id number] 14:16:00 Test Item Value Reference Range Interpretation Comments PARTIAL THROMBOPLASTIN TIME 57.4 seconds 22.5-36.0 H ([facility]) (test code = 760) POCT-GLUCOSE [id number] 13:48:00 Test Item Value Reference Range Interpretation Comments POC-GLUCOSE METER 215 mg/dL 70-110 H TESTED AT [place] [address] ([facility]) (test code = CHULA Craig [facility] 1538) [address]166 POCT-GLUCOSE [id number] 08:27:00 Test Item Value Reference Range Interpretation Comments POC-GLUCOSE METER 322 mg/dL 70-110 H TESTED AT [facility] 6720 (BEAKER) (test code = [place] 1538) [address] BASIC METABOLIC [id number] 07:05:00 Test Item Value Reference Range Interpretation [...] CELL DISTRIBUTION WIDTH 15.1 % 11.6-14.4 H ([facility]) (test code = 412) PLATELET COUNT ([facility]) (test 148 K/CU MM 150-450 L code = 756) MEAN PLATELET VOLUME ([facility]) 10.2 fL 9.4-12.4 (test code = 754) NUCLEATED RED BLOOD CELLS 0 /100 WBC 0-0 ([facility]) (test code = 413) PROTHROMBIN TIME/[id number] 06:46:00 Test Item Value Reference Range Interpretation Comments PROTIME ([facility]) (test code = 17.1 seconds 11.7-14.7 H 759) INR ([facility]) (test code = 370) 1.4 <=5.9 RECOMMENDED COUMADIN/WARFARIN INR THERAPY RANGESSTANDARD DOSE: 2.0 - 3.0 Includes: PROPHYLAXIS forvenous thrombosis, systemic embolization; TREATMENT for venous thrombosis and/or pulmonary embolus.HIGH RISK: Target INR is 2.5-3.5 for patients with mechanical heart valves.[id number] 06:46:00 Test Item Value Reference Range Interpretation Comments PARTIAL THROMBOPLASTIN TIME 52.5 seconds 22.5-36.0 H ([facility]) (test code = 760) [id number] 22:51:00 Test Item Value Reference Range Interpretation Comments PARTIAL THROMBOPLASTIN TIME 45.0 seconds 22.5-36.0 H ([facility]) (test code = 760) POCT-GLUCOSE [id number] 20:33:00 Test Item Value Reference Range Interpretation Comments POC-GLUCOSE METER 290 mg/dL 70-110 H TESTED AT [place] [address] ([facility]) (test code = [place] 1538) [address] POCT-GLUCOSE [id number] 17:18:00 Test Item Value Reference Range Interpretation Comments POC-GLUCOSE METER 281 mg/dL 70-110 H TESTED AT [place] [address] ([facility]) (test code = [place] 1538) [address] POCT-GLUCOSE [id number] 17:00:00 Test Item Value Reference Range Interpretation Comments POC-GLUCOSE METER 169 mg/dL 70-110 H TESTED AT [place] [address] ([facility]) (test code = [place] 1538) [address] POCT-GLUCOSE [id number] 17:00:00 Test Item Value Reference Range Interpretation Comments POC-GLUCOSE METER 232 mg/dL 70-110 H TESTED AT [facility] 6720 ([facility]) (test code = [place] 1538) [address] [id number] 15:43:00 Test Item Value Reference Range Interpretation Comments PARTIAL THROMBOPLASTIN TIME 36.2 seconds 22.5-36.0 H ([facility]) (test code = 760) 6 hours after starting heparin infusion and as indicated per sliding scaleTISSUE [id number] 15:42:00Surgical Pathology Report Case: [id number] Authorizing Provider: Emely Wellington Collected: 11/22/2017 1710 MD Nicky [facility] CV Recovery Room 2 Received: 11/23/2017 0806 Pathologist: Antonette Jean MD Specimen: Stomach, Antrum, polyp PART A GASTRIC ANTRUM POLYP, BIOPSY:GASTRIC MUCOSA WITH HYPERPLASTIC FEATURES AND FOCAL INTESTINAL METAPLASIA.NEGATIVEFOR DYSPLASIA OR INVASIVE CARCINOMA.WARTHIN STARRY STAIN FOR HELICOBACTER IS NEGATIVE. Signing Pathologist Direct Phone Line: [phone] signed by Antonette Jean MD on 11/23/2017 at 3:42 [id number], [id number] hemorrhage Stomach antrum polyp The specimen is received in a formalin-filled container labeled with the patient's information and labeled "stomach antrum polyp" and consists of a 0.1 cm fragment of esteban soft tissue submitted in A1. CG/ew The following special studies were performed on this case and the interpretation is incorporated in the diagnostic report above:BLOCK A1- JACQUIE DUMONTCT-GLUCOSE [id number] 07:19:00 Test Item Value Reference Range Interpretation Comments POC-GLUCOSE METER 271 mg/dL 70-110 H TESTED AT [facility] 6720 ([facility]) (test code = [place] 1538) [address] BASIC METABOLIC [id number] 06:09:00 Test Item Value Reference Range Interpretation [...] NOT APPLICABLE FOR DIALYSIS PATIEN TS. PROTHROMBIN TIME/[id number] 05:45:00 Test Item Value Reference Range Interpretation [...] (BEAKER) (test code = 2801) BASIC METABOLIC [id number] 05:20:00 Test Item Value Reference Range Interpretation [...] APPLICABLE FOR DIALYSIS PATIEN TS. HEMOGLOBIN AND [id number] 05:14:00 Test Item Value Reference Range Interpretation Comments HEMOGLOBIN (BEAKER) (test code = 9.6 GM/DL 13.7-17.5 L 410) HEMATOCRIT (BEAKER) (test code = 32.0 % 40.1-51.0 L 411) PROTHROMBIN TIME/[id number] 04:58:00 Test Item Value Reference Range Interpretation Comments PROTIME (BEAKER) (test code = 23.2 seconds 11.7-14.7 H 759) INR (BEAKER) (test code = 370) 2.1 <=5.9 RECOMMENDED COUMADIN/WARFARIN INR THERAPY RANGESSTANDARD DOSE: 2.0 - 3.0 Includes: PROPHYLAXIS forvenous thrombosis, systemic embolization; TREATMENT for venous thrombosis and/or pulmonary embolus.HIGH RISK: Target INR is 2.5-3.5 for patients with mechanical heart valves.POCT-GLUCOSE [id number] 00:43:00 Test Item Value Reference Range Interpretation Comments POC-GLUCOSE METER 262 mg/dL 70-110 H TESTED AT [place] [address] ([facility]) (test code = [facility] 1538) [address]15 HEMOGLOBIN AND [id number] 23:41:00 Test Item Value Reference Range Interpretation Comments HEMOGLOBIN (BEAKER) (test code = 10.2 GM/DL 13.7-17.5 L 410) HEMATOCRIT (BEAKER) (test code = 33.5 % 40.1-51.0 L 411) POCT-GLUCOSE [id number] 18:36:00 Test Item Value Reference Range Interpretation Comments POC-GLUCOSE METER 309 mg/dL 70-110 H TESTED AT [place] [address] ([facility]) (test code = [facility] 1538) 47198 HEMOGLOBIN AND [id number] 18:35:00 Test Item Value Reference Range Interpretation Comments HEMOGLOBIN (BEAKER) (test code = 9.6 GM/DL 13.7-17.5 L 410) HEMATOCRIT (BEAKER) (test code = 31.3 % 40.1-51.0 L 411) POCT-GLUCOSE [id number] 13:11:00 Test Item Value Reference Range Interpretation Comments POC-GLUCOSE METER 217 mg/dL 70-110 H TESTED AT [facility] 6720 (BEAKER) (test code = [place] 1538) [address] LACTATE DEHYDROGENASE (LDH)2017-11-21 12:53:00 Test Item Value Reference Range Interpretation Comments LACTATE DEHYDROGENASE (BEAKER) (test 318 U/L 125-220 H code = 635) HEMOGLOBIN AND [id number] 12:12:00 Test Item Value Reference Range Interpretation Comments HEMOGLOBIN (BEAKER) (test code = 9.9 GM/DL 13.7-17.5 L 410) HEMATOCRIT (BEAKER) (test code = 32.7 % 40.1-51.0 L 411) B-TYPE NATRIURETIC FACTOR (BNP)2017-11-21 03:36:00 Test Item Value Reference Range Interpretation Comments B-TYPE NATRIURETIC PEPTIDE (BEAKER) 339 pg/mL 0-100 H (test code = 700) CREATINE KINASE (CK), TOTAL AND [id number] 02:58:00 Test Item Value Reference Range Interpretation Comments CREATINE KINASE TOTAL (BEAKER) 59 U/L 29-200 (test code = 380) CREATINE KINASE-MB (BEAKER) (test 1.0 ng/mL 0.0-6.6 code = 750) CREATINE KINASE-MB INDEX (AKER) 1.7 % (test code = 395) CK-MB Reference Range:<6.7 Normal6.7-10.0 Borderline>10.0 AbnormalTROPONIN [id number] 02:58:00 Test Item Value Reference Range Interpretation [...] and persistent tachyarrhythmia.RAD, CHEST, 1 VIEW, NON [id number] 02:11:00LABS: [facility] [id number] [place] [address] [phone] () [phone] (FAX)Reason for exam:->EPISTAXISReason for exam:->RECTAL BLEEDINGReason for [...] Impression: No acute abnormality. Signed: Thang Rodriguez MDRgr[facility]in [facility] Verified Date/Time: 11/21/2017 02:11:19 Reading Location: [address] Reading Room [id number] 01:04:00 Test Item Value Reference Range Interpretation Comments LIPASE (BEAKER) (test code = 749) 20 U/L 8-78 [id number] 01:04:00 Test Item Value Reference Range Interpretation Comments AMYLASE (BEAKER) (test code = 349) 28 U/L 25-125 BASIC METABOLIC [id number] 01:04:00 Test Item Value Reference Range Interpretation [...] APPLICABLE FOR DIALYSIS PATIEN TS. HEPATIC FUNCTION [id number] 01:04:00 Test Item Value Reference Range Interpretation [...] = 25 U/L 6-55 347) URINALYSIS W/ [id number] 00:56:00 Test Item Value Reference Range Interpretation [...] 514) SOURCE(BEAKER) (test code = Urine, Voided 9201) CBC W/PLT COUNT & AUTO [id number] 00:33:00 Test Item Value Reference Range Interpretation [...] 0-1 PERCENT (BEAKER) (test code = 2801) [id number] 00:17:00 Test Item Value Reference Range Interpretation [...] for patients with mechanical heart valves.PLASMA FREE [id number] 07:27:00 Test Item Value Reference Range Interpretation Comments HEMOGLOBIN PLASMA (BEAKER) (test 30.0 mg/dl 0.0-30.0 code = 1054) HEMOGLOBIN [id number] 20:04:00 Test Item Value Reference Range Interpretation Comments HEMOGLOBIN A1C (BEAKER) (test code = 6.7 % 4.3-6.1 H 368) [id number] 14:33:00 Test Item Value Reference Range Interpretation Comments PREALBUMIN (BEAKER) (test code = 16 mg/dL 87-38 089) CT, CHEST, WITHOUT [id number] 14:33:00LABS: [facility] [id number] [place] [address] [phone] () (FAX)FINAL REPORT HISTORY: Lung nodule, <1cm [...] material. Please see above. Signed: Ric Bass MDReport Verified Date/Time: 10/05/2017 14:33:30 Reading Location: [facility] Diagnostic Imaging Reading Room - [place] [address] 112 [id number] 14:27:00 Test Item Value Reference Range Interpretation Comments MAGNESIUM (BEAKER) (test code = 1.8 mg/dL 1.6-2.6 627) BASIC METABOLIC [id number] 14:27:00 Test Item Value Reference Range Interpretation [...] APPLICABLE FOR DIALYSIS PATIEN TS. HEPATIC FUNCTION [id number] 14:27:00 Test Item Value Reference Range Interpretation [...] U/L 125-220 H code = 635) PROTHROMBIN TIME/[id number] 13:48:00 Test Item Value Reference Range Interpretation [...] (test code = 2801) HEPATITIS C PCR, [id number] 09:32:00 Test Item Value Reference Range Interpretation Comments HCV RESULT COMPONENT HCV RNA not detected HCV RNA not detected (BEAKER) (test code = 2699) This test uses a Real-Time Polymerase Chain Reaction (RT-PCR) methodology and was performed using [employer] Ampliprep/BH[employer]AR TaqMan HCV test kit version 2.0 ([employer]).Reportable range for this assay is 15 - 100,000,000 IU per mL (1.18 - 8.00 Log IU/mL).AB SPECIFICITY CLASS [id number] 09:45:00 Test Item Value Reference Range Interpretation Comments DATE OF SERUM (BEAKER) 277092 (test code = 2289) SERUM # (BEAKER) (test 097014 code = 2290) AB SPECIFICITY CLASS I See Scanned Report (BEAKER) (test code = 2429) FLOW PRA CLASS I AND [id number] 14:14:00 Test Item Value Reference Range Interpretation Comments DATE OF SERUM (BEAKER) 451202 (test code = 2289) SERUM # (BEAKER) (test 269153 code = 2290) FLOW PRA CLASS I AND II See Scanned Report (test code = 2421) HERPES VIRUS ANTIBODY, [id number] 07:57:00 Test Item Value Reference Range Interpretation Comments HERPES VIRUS IGM (BEAKER) (test code Negative = 1808) TOXOPLASMA GONDII ANTIBODY, [id number] 07:57:00 Test Item Value Reference Range Interpretation Comments TOXOPLASMA IGM ANTIBODY (BEAKER) Negative (test code = 742) ANTI-NUCLEAR ANTIBODY (NOLA)2017-09-01 10:42:00 Test Item Value Reference Range Interpretation Comments ANTI-NUCLEAR ANTIBODY (NOLA) (BEAKER) Negative Negative (test code = 418) CYTOMEGALOVIRUS ANTIBODY, [id number] 15:35:00 Test Item Value Reference Range Interpretation Comments CYTOMEGALOVIRUS IGG ANTIBODY Positive (BEAKER) (test code = 790) CYTOMEGALOVIRUS ANTIBODY, [id number] 15:35:00 Test Item Value Reference Range Interpretation Comments CYTOMEGALOVIRUS IGM ANTIBODY Negative (BEAKER) (test code = 816) EBV-VCA ANTIBODY, [id number] 15:35:00 Test Item Value Reference Range Interpretation Comments AMAURI-MASON VCA IGG (BEAKER) (test Positive code = 983) EBV-VCA ANTIBODY, [id number] 15:35:00 Test Item Value Reference Range Interpretation Comments AMAURI-MASON VCA IGM (BEAKER) (test Negative code = 984) HERPES VIRUS ANTIBODY, [id number] 15:35:00 Test Item Value Reference Range Interpretation Comments HERPES VIRUS IGG Positive HSV 1 IGG = POSHSV 2 (BEAKER) (test code = IGG = NEG 1807) TOXOPLASMA GONDII ANTIBODY, [id number] 15:35:00 Test Item Value Reference Range Interpretation [...] 1814) proteins detected. Polyclonal distribution of immunoglobulins. [id number] Gloria Schmidt (BEAKER) (test code = (electronic 1371) signature) PROTEIN ELECTROPHORESIS, [id number] 15:29:00 Test Item Value Reference Range Interpretation [...] in (BEAKER) (test code = expected distribution 2616) with minor nonspecific changes. No monoclonal bands detected. [id number] Gloria Schmidt MD (BEAKER) (test code = (electronic signature) 6148) PROTEIN TOTAL SERUM, 7.3 gm/dL 6.0-8.3 SPEP (BEAKER) (test code = 2660) VARICELLA ZOSTER ANTIBODY, [id number] 15:16:00 Test Item Value Reference Range Interpretation Comments VARICELLA ZOSTER IGG (AL) (BEAKER) 6.1 Al (test code = 3197) VARICELLA ZOSTER RESULT INTERPRETATIONS: <=0.8 Al Nonreactive: Presumed non-immune to VZV 0.9-1.0 Al Equivocal >=1.1 Al Reactive: Presumed immune to VZVRAD, BONE DENSITY [id number] 11:20:00 LABS: [facility] AND [address] [phone] () [phone] (FAX)Reason for Exam:->Heart transplant evaluationFINAL REPORT Bone mineral density study 08/31/2017. CLINICAL INDICATION: Heart transplant evaluation. COMPARISON: 02/03/2016 FINDINGS: Evaluation of the left and right femoral necks and lumbar spine was performed utilizing a [email or web address] Advance bone densitometer. Data reflect young adult [...] MDReport Verified Date/Time: 08/31/2017 11:20:44 Reading Location: [address] Mammo Reading Room , BRAIN, WITHOUT [id number] 09:58:00LABS: [facility] [address], [place] [phone] () [phone] (FAX)FINAL REPORT CT head without contrast INDICATION: [...] Stable left mastoidectomy changes. Signed: Blaire Marsh MDReport Verified Date/Time: 08/31/2017 09:58:49 Reading Location: [facility] B1 C013V Neuro Reading Room HEMOGLOBIN [id number] 16:20:00 Test Item Value Reference Range Interpretation Comments HEMOGLOBIN A1C (BEAKER) (test code = 9.5 % 4.3-6.1 H 368) RAD, CHEST, 2 [id number] 15:22:00LABS: [facility] [id number] [place], [place] [phone] () [phone] (FAX)Reason for Exam:->Heart transplant evaluationFINAL REPORT Chest two views compared to January 17 Discussion: Left chest pacemaker and left ventricular assist device are noted. Lungs clear. Heart size normal. No effusion or pneumothorax. Signed: Maximus Miranda Verified Date/Time: 08/30/2017 15:22:59 Reading Location: [address] Consult Reading Room U/S, RENAL, COMPLETE 2017-08-30 15:04:00LABS: [facility] [id number] [place] [address] [phone] () [phone] (FAX)Reason for Exam:->Heart transplant evaluationFINAL REPORT Renal [...] and shape without evidence of hydronephrosis. Signed: Kassi Mona MDReport Verified Date/Time: 08/30/2017 15:04:53 Reading Location: [facility] B1 P006J Ultrasound Reading Room HEPATITIS C [id number] 14:00:00 Test Item Value Reference Range Interpretation Comments HEPATITIS C ANTIBODY (BEAKER) (test Reactive Nonreactive A code = 367) HEPATITIS A ANTIBODY, [id number] 12:06:00 Test Item Value Reference Range Interpretation Comments HEPATITIS A IGG ANTIBODY (BEAKER) Reactive Nonreactive A (test code = 2797) URINALYSIS W/ [id number] 11:35:00 Test Item Value Reference Range Interpretation [...] code = 2795) HEPATITIS B CORE ANTIBODY, [id number] 11:24:00 Test Item Value Reference Range Interpretation Comments HEPATITIS B CORE IGM ANTIBODY Nonreactive Nonreactive (BEAKER) (test code = 645) HEPATITIS A ANTIBODY, [id number] 11:24:00 Test Item Value Reference Range Interpretation Comments HEPATITIS A IGM ANTIBODY (BEAKER) Nonreactive Nonreactive (test code = 498) HEPATITIS B CORE ANTIBODY, [id number] 11:24:00 Test Item Value Reference Range Interpretation Comments HEPATITIS B CORE TOTAL ANTIBODY Nonreactive Nonreactive (BEAKER) (test code = 497) [id number] 11:24:00 Test Item Value Reference Range Interpretation Comments RPR SCREEN (BEAKER) (test code = Nonreactive Nonreactive 420) [id number] 11:24:00 Test Item Value Reference Range Interpretation Comments PROSTATE SPECIFIC ANTIGEN (BEAKER) 0.5 ng/mL 0.0-4.0 (test code = 844) HEPATITIS B SURFACE [id number] 11:02:00 Test Item Value Reference Range Interpretation Comments HEPATITIS B SURFACE ANTIGEN (2) Nonreactive Nonreactive (BEAKER) (test code = 2585) HIV-1 ANTIGEN WITH HIV-1/2 [id number] 11:02:00 Test Item Value Reference Range Interpretation Comments HIV-1 ANTIGEN WITH HIV 1\\T\\2 Nonreactive Nonreactive ANTIBODY (2) (BEAKER) (test code = 2586) T4, [id number] 10:40:00 Test Item Value Reference Range Interpretation Comments FREE T4 (BEAKER) (test code = 655) 1.08 ng/dL 0.70-1.48 [id number] 10:40:00 Test Item Value Reference Range Interpretation Comments THYROID STIMULATING HORMONE 1.68 uIU/mL 0.35-4.94 (BEAKER) (test code = 772) VITAMIN D, [id number] 10:40:00 Test Item Value Reference Range Interpretation Comments VITAMIN D 25-OH (BEAKER) (test 10.7 ng/mL 6.6-49.9 code = 2764) Effective 08/29/2017: Reference Range ChangeNew: 6.6-49.9 ng/mL Previous: 13.0-47.8 ng/mLRecommended Vitamin D Target Range: 30.0-40.0 ng/mLPREALBUMIN 2017-08-30 10:39:00 Test Item Value Reference Range Interpretation Comments PREALBUMIN (BEAKER) (test code = 16 mg/dL 14-45 586) IRON, [id number] 10:39:00 Test Item Value Reference Range Interpretation Comments IRON (BEAKER) (test code = 547) 50 ug/dL 40-160 [id number] 10:39:00 Test Item Value Reference Range Interpretation Comments FERRITIN (BEAKER) (test code = 361) 16 ng/mL 5-275 [id number] 10:26:00 Test Item Value Reference Range Interpretation Comments TRANSFERRIN (BEAKER) (test code = 358 mg/dL 174-382 541) B-TYPE NATRIURETIC FACTOR (BNP)2017-08-30 10:25:00 Test Item Value Reference Range Interpretation Comments B-TYPE NATRIURETIC PEPTIDE (BEAKER) 287 pg/mL 0-100 H (test code = 700) GAMMA GLUTAMYL TRANSFERASE (GGT)2017-08-30 10:21:00 Test Item Value Reference Range Interpretation Comments GAMMA GLUTAMYL TRANSFERASE (BEAKER) 347 U/L 9-64 H (test code = 364) LACTATE DEHYDROGENASE (LDH)2017-08-30 10:21:00 Test Item Value Reference Range Interpretation Comments LACTATE DEHYDROGENASE (BEAKER) (test 308 U/L 125-220 H code = 635) [id number] 10:21:00 Test Item Value Reference Range Interpretation Comments LIPASE (BEAKER) (test code = 749) 14 U/L 8-78 URIC [id number] 10:21:00 Test Item Value Reference Range Interpretation Comments URIC ACID (BEAKER) (test code = 8.1 mg/dL 2.6-7.2 H 773) [id number] 10:21:00 Test Item Value Reference Range Interpretation Comments MAGNESIUM (BEAKER) (test code = 1.7 mg/dL 1.6-2.6 627) [id number] 10:21:00 Test Item Value Reference Range Interpretation Comments PHOSPHORUS (BEAKER) (test code = 2.9 mg/dL 2.3-4.7 604) BASIC METABOLIC [id number] 10:21:00 Test Item Value Reference Range Interpretation [...] NOT APPLICABLE FOR DIALYSIS PATIEN TS. LIPID [id number] 10:21:00 Test Item Value Reference Range Interpretation [...] 130-159 High 160-189 Very High >=190HEPATIC FUNCTION [id number] 10:21:00 Test Item Value Reference Range Interpretation [...] (test code = 28 U/L 6-55 347) [id number] 10:21:00 Test Item Value Reference Range Interpretation Comments AMYLASE (BEAKER) (test code = 349) 30 U/L 25-125 PLASMA FREE [id number] 10:14:00 Test Item Value Reference Range Interpretation Comments HEMOGLOBIN PLASMA (BEAKER) (test code < mg/dl 0.0-30.0 = 1054) PT/[id number] 10:12:00 Test Item Value Reference Range Interpretation [...] 2.5-3.5 for patients with mechanical heart valves.PROTHROMBIN TIME/[id number] 10:11:00 Test Item Value Reference Range Interpretation Comments PROTIME (BEAKER) (test code = 26.0 seconds 11.7-14.7 H 759) INR (BEAKER) (test code = 370) 2.4 <=5.9 RECOMMENDED COUMADIN/WARFARIN INR THERAPY RANGESSTANDARD DOSE: 2.0 - 3.0 Includes: PROPHYLAXIS forvenous thrombosis, systemic embolization; TREATMENT for venous thrombosis and/or pulmonary embolus.HIGH RISK: Target INR is 2.5-3.5 for patients with mechanical heart valves.RETICULOCYTE [id number] 10:01:00 Test Item Value Reference Range Interpretation Comments RETICULOCYTE COUNT PCT (BEAKER) (test 2.4 % 0.5-1.8 H code = 575) CBC W/PLT COUNT & AUTO [id number] 10:01:00 Test Item Value Reference Range Interpretation [...] (BEAKER) (test code = 2801) PLASMA FREE [id number] 11:32:00 Test Item Value Reference Range Interpretation Comments HEMOGLOBIN PLASMA (BEAKER) (test 30.0 mg/dl 0.0-30.0 code = 1054) [id number] 11:15:00 Test Item Value Reference Range Interpretation Comments MAGNESIUM (BEAKER) (test code = 1.9 mg/dL 1.6-2.6 627) BASIC METABOLIC [id number] 11:15:00 Test Item Value Reference Range Interpretation [...] APPLICABLE FOR DIALYSIS PATIEN TS. HEPATIC FUNCTION [id number] 11:15:00 Test Item Value Reference Range Interpretation [...] 258 U/L 125-220 H code = 635) [id number] 11:09:00 Test Item Value Reference Range Interpretation Comments PREALBUMIN (BEAKER) (test code = 17 mg/dL 14-45 586) PROTHROMBIN [id number] 11:03:00 Test Item Value Reference Range Interpretation [...] 0-1 PERCENT (BEAKER) (test code = 2801) [id number] 12:32:00 Test Item Value Reference Range Interpretation [...] > 4.0 CBC W/PLT COUNT & AUTO [id number] 11:34:00 Test Item Value Reference Range Interpretation [...] 0.00-0.20 (test code = 417) 0.00PLASMA FREE [id number] 11:25:00 Test Item Value Reference Range Interpretation Comments HEMOGLOBIN PLASMA (BEAKER) (test code < mg/dl 0.0-30.0 = 1054) [id number] 11:11:00 Test Item Value Reference Range Interpretation Comments PREALBUMIN (BEAKER) (test code = 17 mg/dL 14-45 586) [id number] 11:04:00 Test Item Value Reference Range Interpretation Comments MAGNESIUM (BEAKER) (test code = 1.7 mg/dL 1.6-2.6 627) BASIC METABOLIC [id number] 11:04:00 Test Item Value Reference Range Interpretation [...] APPLICABLE FOR DIALYSIS PATIEN TS. HEPATIC FUNCTION [id number] 11:04:00 Test Item Value Reference Range Interpretation [...] U/L 125-220 H code = 635) PROTHROMBIN [id number] 10:54:00 Test Item Value Reference Range Interpretation Comments PROTIME (BEAKER) (test code = 20.9 seconds 11.7-14.7 H 759) INR (BEAKER) (test code = 370) 1.8 <=5.9 RECOMMENDED COUMADIN/WARFARIN INR THERAPY RANGESSTANDARD DOSE: 2.0 - 3.0 Includes: PROPHYLAXIS forvenous thrombosis, systemic embolization; TREATMENT for venous thrombosis and/or pulmonary embolus.HIGH RISK: Target INR is 2.5-3.5 for patients with mechanical heart valves.T4, [id number] 14:16:00 Test Item Value Reference Range Interpretation Comments FREE T4 (BEAKER) (test code = 655) 1.04 ng/dL 0.70-1.48 [id number] 14:16:00 Test Item Value Reference Range Interpretation Comments THYROID STIMULATING HORMONE 1.79 uIU/mL 0.35-4.94 (BEAKER) (test code = 772) [id number] 12:33:00 Test Item Value Reference Range Interpretation Comments PREALBUMIN (BEAKER) (test code = 18 mg/dL 14-45 586) [id number] 11:48:00 Test Item Value Reference Range Interpretation Comments MAGNESIUM (BEAKER) (test code = 1.9 mg/dL 1.6-2.6 627) BASIC METABOLIC [id number] 11:48:00 Test Item Value Reference Range Interpretation [...] APPLICABLE FOR DIALYSIS PATIEN TS. HEPATIC FUNCTION [id number] 11:48:00 Test Item Value Reference Range Interpretation [...] U/L 125-220 H code = 635) PROTHROMBIN TIME/[id number] 11:34:00 Test Item Value Reference Range Interpretation Comments PROTIME (BEAKER) (test code = 26.7 seconds 11.7-14.7 H 759) INR (BEAKER) (test code = 370) 2.5 <=5.9 RECOMMENDED COUMADIN/WARFARIN INR THERAPY RANGESSTANDARD DOSE: 2.0 - 3.0 Includes: PROPHYLAXIS forvenous thrombosis, systemic embolization; TREATMENT for venous thrombosis and/or pulmonary embolus.HIGH RISK: Target INR is 2.5-3.5 for patients with mechanical heart valves.PLASMA FREE [id number] 11:34:00 Test Item Value Reference Range Interpretation Comments HEMOGLOBIN PLASMA (BEAKER) (test 30.0 mg/dl 0.0-30.0 code = 1054) CBC W/PLT COUNT & AUTO [id number] 11:32:00 Test Item Value Reference Range Interpretation [...] K/ L 0.00-0.20 (test code = 417) [id number] 10:44:00 Test Item Value Reference Range Interpretation Comments FERRITIN (BEAKER) (test code = 361) 26 ng/mL 5-275 Effective 10/06/2014: Reference Range ChangeNew: Male 5-275 Previous: Male 22-322 Female 5-275 Female 10-291PLASMA FREE HEMOGLOBIN 2017-03-16 10:28:00 Test Item Value Reference Range Interpretation Comments HEMOGLOBIN PLASMA (BEAKER) (test code < mg/dl 0.0-30.0 = 1054) [id number] 10:23:00 Test Item Value Reference Range Interpretation [...] % 20-55 L (test code = 2590) [id number] 10:22:00 Test Item Value Reference Range Interpretation Comments MAGNESIUM (BEAKER) (test code = 1.8 mg/dL 1.6-2.6 627) BASIC METABOLIC [id number] 10:22:00 Test Item Value Reference Range Interpretation [...] NOT APPLICABLE FOR DIALYSIS PATIEN TS. LIPID [id number] 10:22:00 Test Item Value Reference Range Interpretation [...] 130-159 High 160-189 Very High >=190HEPATIC FUNCTION [id number] 10:22:00 Test Item Value Reference Range Interpretation [...] U/L 125-220 H code = 635) PROTHROMBIN TIME/[id number] 10:12:00 Test Item Value Reference Range Interpretation [...] K/ L 0.00-0.20 (test code = 417) [id number] 10:31:00 Test Item Value Reference Range Interpretation [...] % 20-55 H (test code = 2590) [id number] 10:24:00 Test Item Value Reference Range Interpretation Comments FERRITIN (BEAKER) (test code = 361) 45 ng/mL 5-275 Effective 10/06/2014: Reference Range ChangeNew: Male 5-275 Previous: Male 22-322 Female 5-275 Female [id number] 10:05:00 Test Item Value Reference Range Interpretation Comments MAGNESIUM (BEAKER) (test code = 1.7 mg/dL 1.6-2.6 627) BASIC METABOLIC [id number] 10:05:00 Test Item Value Reference Range Interpretation [...] APPLICABLE FOR DIALYSIS PATIEN TS. HEPATIC FUNCTION [id number] 10:05:00 Test Item Value Reference Range Interpretation [...] U/L 125-220 H code = 635) PROTHROMBIN TIME/[id number] 10:01:00 Test Item Value Reference Range Interpretation [...] L 0.00-0.20 (test code = 417) 0.00POCT-GLUCOSE [id number] 09:10:00 Test Item Value Reference Range Interpretation Comments POC-GLUCOSE METER 221 mg/dL 70-110 H TESTED AT [facility] 6720 (BEAKER) (test code = [place] 1539) [address] B-TYPE NATRIURETIC FACTOR (BNP)2017-01-19 02:46:00 Test Item Value Reference Range Interpretation Comments B-TYPE NATRIURETIC PEPTIDE (BEAKER) 254 pg/mL 0-100 H (test code = 700) [id number] 02:43:00 Test Item Value Reference Range Interpretation Comments LIPASE (BEAKER) (test code = 749) 19 U/L 8-78 [id number] 02:43:00 Test Item Value Reference Range Interpretation Comments AMYLASE (BEAKER) (test code = 349) 15 U/L 25-125 L BASIC METABOLIC [id number] 02:43:00 Test Item Value Reference Range Interpretation [...] APPLICABLE FOR DIALYSIS PATIEN TS. HEPATIC FUNCTION [id number] 02:43:00 Test Item Value Reference Range Interpretation [...] code = 27 U/L 6-55 347) PROTHROMBIN TIME/[id number] 02:28:00 Test Item Value Reference Range Interpretation Comments PROTIME (BEAKER) (test code = 17.0 seconds 11.7-14.7 H 759) INR (BEAKER) (test code = 370) 1.4 <=5.9 RECOMMENDED COUMADIN/WARFARIN INR THERAPY RANGESSTANDARD DOSE: 2.0 - 3.0 Includes: PROPHYLAXIS forvenous thrombosis, systemic embolization; TREATMENT for venous thrombosis and/or pulmonary embolus.HIGH RISK: Target INR is 2.5-3.5 for patients with mechanical heart valves.[id number] 02:25:00 Test Item Value Reference Range Interpretation Comments PARTIAL THROMBOPLASTIN TIME 61.3 seconds 22.5-36.0 H (BEAKER) (test code = 760) HEMOGLOBIN AND [id number] 02:22:00 Test Item Value Reference Range Interpretation Comments HEMOGLOBIN (BEAKER) (test code = 9.3 GM/DL 13.0-16.8 L 410) HEMATOCRIT (BEAKER) (test code = 27.2 % 40.0-50.0 L 411) POCT-GLUCOSE [id number] 20:47:00 Test Item Value Reference Range Interpretation Comments POC-GLUCOSE METER 171 mg/dL 70-110 H TESTED AT [facility] 67[address] ([facility]) (test code = [place] 1538) [address] [id number] 19:02:00 Test Item Value Reference Range Interpretation Comments PARTIAL THROMBOPLASTIN TIME 74.9 seconds 22.5-36.0 H (BEAKER) (test code = 760) POCT-GLUCOSE [id number] 16:58:00 Test Item Value Reference Range Interpretation Comments POC-GLUCOSE METER 214 mg/dL 70-110 H TESTED AT [place] [address] [facility] (test code = [place] 1538) [address] POCT-GLUCOSE [id number] 12:21:00 Test Item Value Reference Range Interpretation Comments POC-GLUCOSE METER 193 mg/dL 70-110 H TESTED AT [place] [address] ([facility]) (test code = [place] 1538) [address] [id number] 11:17:00 Test Item Value Reference Range Interpretation Comments PARTIAL THROMBOPLASTIN TIME 91.3 seconds 22.5-36.0 H (BEAKER) (test code = 760) POCT-GLUCOSE [id number] 07:32:00 Test Item Value Reference Range Interpretation Comments POC-GLUCOSE METER 293 mg/dL 70-110 H TESTED AT [place] [address] ([facility]) (test code = [place] [facility] 1538) [address] HEMOGLOBIN AND [id number] 04:16:00 Test Item Value Reference Range Interpretation Comments HEMOGLOBIN (BEAKER) (test code = 9.4 GM/DL 13.0-16.8 L 410) HEMATOCRIT (BEAKER) (test code = 26.9 % 40.0-50.0 L 411) BASIC METABOLIC [id number] 03:51:00 Test Item Value Reference Range Interpretation [...] S NOT APPLICABLE FOR DIALYSIS PATIEN TS. [id number] 03:44:00 Test Item Value Reference Range Interpretation Comments PARTIAL THROMBOPLASTIN TIME 91.0 seconds 22.5-36.0 H ([facility]) (test code = 760) PROTHROMBIN [id number] 03:42:00 Test Item Value Reference Range Interpretation Comments PROTIME ([facility]) (test code = 15.2 seconds 11.7-14.7 H 759) INR ([facility]) (test code = 370) 1.2 <=5.9 RECOMMENDED COUMADIN/WARFARIN INR THERAPY RANGESSTANDARD DOSE: 2.0 - 3.0 Includes: PROPHYLAXIS forvenous thrombosis, systemic embolization; TREATMENT for venous thrombosis and/or pulmonary embolus.HIGH RISK: Target INR is 2.5-3.5 for patients with mechanical heart valves.POCT-GLUCOSE [id number] 22:02:00 Test Item Value Reference Range Interpretation Comments POC-GLUCOSE METER 270 mg/dL 70-110 H TESTED AT [place] [address] ([facility]) (test code = [place] [facility] 1538) [address] [id number] 19:30:00 Test Item Value Reference Range Interpretation Comments PARTIAL THROMBOPLASTIN TIME 99.9 seconds 22.5-36.0 H ([facility]) (test code = 760) POCT-GLUCOSE [id number] 16:39:00 Test Item Value Reference Range Interpretation Comments POC-GLUCOSE METER 297 mg/dL 70-110 H TESTED AT [place] [address] ([facility]) (test code = [place] 1538) [address] [id number] 13:19:00 Test Item Value Reference Range Interpretation Comments PARTIAL THROMBOPLASTIN TIME 70.5 seconds 22.5-36.0 H ([facility]) (test code = 760) POCT-GLUCOSE [id number] 12:29:00 Test Item Value Reference Range Interpretation Comments POC-GLUCOSE METER 236 mg/dL 70-110 H TESTED AT [place] [address] ([facility]) ([facility] [place] [facility]) [address] POCT-GLUCOSE [id number] 07:22:00 Test Item Value Reference Range Interpretation Comments POC-GLUCOSE METER 207 mg/dL 70-110 H TESTED AT [place] [address] (BEAKER) (test code = [place] 1538) [address] CBC W/PLT COUNT & AUTO [id number] 06:41:00 Test Item Value Reference Range Interpretation Comments WHITE BLOOD CELL COUNT (BEAKER) 7.7 K/ L 4.0-10.0 (test code = 775) RED BLOOD CELL COUNT (BEAKER) 3.00 M/ L 4.20-5.80 L (test code = 761) HEMOGLOBIN (BEAKER) (test code = 9.2 GM/DL 13.0-16.8 L 410) HEMATOCRIT (BEAKER) (test code = 26.7 % 40.0-50.0 L 411) MEAN CORPUSCULAR VOLUME (BEAKER) 89.1 fL 82.0-98.0 (test code = 753) [...] K/ L 0.00-0.20 (test code = 417) 0.00BASIC METABOLIC [id number] 06:31:00 Test Item Value Reference Range Interpretation [...] 358) GLUCOSE RANDOM 221 mg/dL 70-105 H (BEAKER) (test code = 652) CALCIUM (BEAKER) 8.1 mg/dL 8.4-10.2 L (test code = 697) EGFR (BEAKER) (test 60 mL/min/1.73 ESTIMA JENIFER GFR IS code = 1092) sq m NOT ACCURATE CREATININE CLEARANCE IN PREDICTING GLOMERULAR FILTRATION RATE . ESTIMATED GFR I S NOT APPLICABLE FOR DIALYSIS PATIEN TS. [id number] 06:20:00 Test Item Value Reference Range Interpretation Comments PARTIAL THROMBOPLASTIN TIME 33.9 seconds 22.5-36.0 (BEAKER) (test code = 760) PROTHROMBIN [id number] 06:19:00 Test Item Value Reference Range Interpretation Comments PROTIME (BEAKER) (test code = 14.6 seconds 11.7-14.7 759) INR (BEAKER) (test code = 370) 1.2 <=5.9 RECOMMENDED COUMADIN/WARFARIN INR THERAPY RANGESSTANDARD DOSE: 2.0 - 3.0 Includes: PROPHYLAXIS forvenous thrombosis, systemic embolization; TREATMENT for venous thrombosis and/or pulmonary embolus.HIGH RISK: Target INR is 2.5-3.5 for patients with mechanical heart valves.POCT-GLUCOSE [id number] 22:35:00 Test Item Value Reference Range Interpretation Comments POC-GLUCOSE METER 239 mg/dL 70-110 H TESTED AT [facility] 6720 (BEAKER) (test code = [place] [facility] 1538) [address] [id number] 20:55:00 Test Item Value Reference Range Interpretation Comments PARTIAL THROMBOPLASTIN TIME 28.7 seconds 22.5-36.0 ([facility]) (test code = 760) POCT-GLUCOSE [id number] 17:07:00 Test Item Value Reference Range Interpretation Comments POC-GLUCOSE METER 346 mg/dL 70-110 H TESTED AT [place] [address] ([facility]) (test code = [place] [facility] 1538) [address] POCT-GLUCOSE [id number] 17:00:00 Test Item Value Reference Range Interpretation Comments POC-GLUCOSE METER 306 mg/dL 70-110 H TESTED AT [place] [address] ([facility]) (test code = [place] [facility] 1538) [address] POCT-GLUCOSE [id number] 12:11:00 Test Item Value Reference Range Interpretation Comments POC-GLUCOSE METER 268 mg/dL 70-110 H TESTED AT [place] [address] ([facility]) (test code = [place] [facility] 1538) [address] POCT-GLUCOSE [id number] 08:17:00 Test Item Value Reference Range Interpretation Comments POC-GLUCOSE METER 276 mg/dL 70-110 H TESTED AT [place] [address] ([facility]) (test code = [place] [facility] 1538) [address] CBC W/PLT COUNT & AUTO [id number] 06:10:00 Test Item Value Reference Range Interpretation Comments WHITE BLOOD CELL COUNT ([facility]) 6.9 K/ L 4.0-10.0 (test code = 775) RED BLOOD CELL COUNT ([facility]) 3.03 M/ L 4.20-5.80 L (test code = 761) HEMOGLOBIN ([facility]) (test code = 9.3 GM/DL 13.0-16.8 L 410) HEMATOCRIT ([facility]) (test code = 26.8 % 40.0-50.0 L 411) MEAN CORPUSCULAR VOLUME ([facility]) 88.7 fL 82.0-98.0 (test code = 753) MEAN CORPUSCULAR HEMOGLOBIN 30.8 pg 27.0-33.0 ([facility]) (test code = 751) MEAN CORPUSCULAR HEMOGLOBIN [...] K/ L 0.00-0.20 (test code = 417) [id number] 06:03:00 Test Item Value Reference Range Interpretation Comments MAGNESIUM (BEAKER) (test code = 1.7 mg/dL 1.6-2.6 627) BASIC METABOLIC [id number] 06:03:00 Test Item Value Reference Range Interpretation [...] 358) GLUCOSE RANDOM 266 mg/dL 70-105 H ([facility]) (test code = 652) CALCIUM ([facility]) 8.4 mg/dL 8.4-10.2 (test code = 697) EGFR ([facility]) (test 65 mL/min/1.73 ESTIMA JENIFER GFR IS code = 1092) sq m NOT ACCURATE CREATININE CLEARANCE IN PREDICTING GLOMERULAR FILTRATION RATE . ESTIMATED GFR I S NOT APPLICABLE FOR DIALYSIS PATIEN TS. LACTATE DEHYDROGENASE ([facility])2017-01-16 06:03:00 Test Item Value Reference Range Interpretation Comments LACTATE DEHYDROGENASE ([facility]) (test 233 U/L 125-220 H code = 635) PROTHROMBIN TIME/[id number] 05:44:00 Test Item Value Reference Range Interpretation Comments PROTIME ([facility]) (test code = 16.0 seconds 11.7-14.7 H 759) INR ([facility]) (test code = 370) 1.3 <=5.9 RECOMMENDED COUMADIN/WARFARIN INR THERAPY RANGESSTANDARD DOSE: 2.0 - 3.0 Includes: PROPHYLAXIS forvenous thrombosis, systemic embolization; TREATMENT for venous thrombosis and/or pulmonary embolus.HIGH RISK: Target INR is 2.5-3.5 for patients with mechanical heart valves.POCT-GLUCOSE [id number] 21:29:00 Test Item Value Reference Range Interpretation Comments POC-GLUCOSE METER 192 mg/dL 70-110 H TESTED AT [place] [address] ([facility]) (test code = CHULA Craig [facility] 1538) [id number] POCT-GLUCOSE [id number] 17:50:00 Test Item Value Reference Range Interpretation Comments POC-GLUCOSE METER 267 mg/dL 70-110 H TESTED AT [place] [address] ([facility]) (test code = CHULA Craig [facility] 1538) [id number] POCT-GLUCOSE [id number] 12:22:00 Test Item Value Reference Range Interpretation Comments POC-GLUCOSE METER 240 mg/dL 70-110 H TESTED AT [place] [address] ([facility]) (test code = CHULA Craig [facility] 1538) [id number] POCT-GLUCOSE [id number] 08:02:00 Test Item Value Reference Range Interpretation Comments POC-GLUCOSE METER 200 mg/dL 70-110 H TESTED AT [facility] 6720 (BEAKER) (test code = [place] 1538) [id number] 06:06:00 Test Item Value Reference Range Interpretation Comments MAGNESIUM (BEAKER) (test code = 2.1 mg/dL 1.6-2.6 627) BASIC METABOLIC [id number] 06:06:00 Test Item Value Reference Range Interpretation [...] = 635) CBC W/PLT COUNT & AUTO [id number] 05:45:00 Test Item Value Reference Range Interpretation [...] L 0.00-0.20 (test code = 417) 0.00PROTHROMBIN [id number] 05:40:00 Test Item Value Reference Range Interpretation Comments PROTIME (BEAKER) (test code = 20.4 seconds 11.7-14.7 H 759) INR (BEAKER) (test code = 370) 1.8 <=5.9 RECOMMENDED COUMADIN/WARFARIN INR THERAPY RANGESSTANDARD DOSE: 2.0 - 3.0 Includes: PROPHYLAXIS forvenous thrombosis, systemic embolization; TREATMENT for venous thrombosis and/or pulmonary embolus.HIGH RISK: Target INR is 2.5-3.5 for patients with mechanical heart valves.POCT-GLUCOSE [id number] 21:35:00 Test Item Value Reference Range Interpretation Comments POC-GLUCOSE METER 203 mg/dL 70-110 H TESTED AT [facility] 6720 ([facility]) (test code = CHULA Craig [facility] 1538) [id number] CBC (HEMOGRAM ONLY)2017-01-14 17:58:00 Test Item Value Reference Range Interpretation Comments WHITE BLOOD CELL COUNT (BEAKER) 6.6 K/ L 4.0-10.0 (test code = 775) RED BLOOD CELL COUNT (BEAKER) 3.30 M/ L 4.20-5.80 L (test code = 761) HEMOGLOBIN (BEAKER) (test code = 10.2 GM/DL 13.0-16.8 L 410) HEMATOCRIT (BEAKER) (test code = 28.3 % 40.0-50.0 L [...] 0-0 (BEAKER) (test code = 413) 0.00POCT-GLUCOSE [id number] 17:34:00 Test Item Value Reference Range Interpretation Comments POC-GLUCOSE METER 310 mg/dL 70-110 H TESTED AT [facility] 67[address] ([facility]) (test code = CHULA Craig [facility] 1538) [id number] CBC (HEMOGRAM ONLY)2017-01-14 14:39:00 Test Item Value [...] RED BLOOD CELLS 0 /100 WBC 0-0 ([facility]) (test code = 413) POCT-GLUCOSE [id number] 13:02:00 Test Item Value Reference Range Interpretation Comments POC-GLUCOSE METER 239 mg/dL 70-110 H TESTED AT [place] [address] ([facility]) (test code = CHULA Craig [facility] 1538) [id number] POCT-GLUCOSE [id number] 09:30:00 Test Item Value Reference Range Interpretation Comments POC-GLUCOSE METER 303 mg/dL 70-110 H TESTED AT [place] [address] ([facility]) (test code = CHULA Craig [facility] 1538) [id number] POCT-GLUCOSE [id number] 05:39:00 Test Item Value Reference Range Interpretation Comments POC-GLUCOSE METER 281 mg/dL 70-110 H TESTED AT [place] [address] ([facility]) (test code = CHULA Craig [facility] 1538) [address] [id number] 04:27:00 Test Item Value Reference Range Interpretation Comments FERRITIN ([facility]) (test code = 361) 40 ng/mL 5-275 Effective 10/06/2014: Reference Range ChangeNew: Male 5-275 Previous: Male 22-322 Female 5-275 Female 10-291LACTATE DEHYDROGENASE (LDH) 2017-01-14 04:17:00 Test Item Value Reference Range Interpretation Comments LACTATE DEHYDROGENASE 253 U/L 125-220 H Specim en slightly (BEAKER) (test code = hemoly zed 635) [id number] 04:14:00 Test Item Value Reference Range Interpretation Comments MAGNESIUM (BEAKER) 1.8 mg/dL 1.6-2.6 Specimen slightly (test code = 627) hemolyzed BASIC METABOLIC [id number] 04:14:00 Test Item Value Reference Range Interpretation [...] NOT APPLICABLE FOR DIALYSIS PATIEN TS. PROTHROMBIN [id number] 04:07:00 Test Item Value Reference Range Interpretation [...] 0-0 (BEAKER) (test code = 413) 0.00POCT-GLUCOSE [id number] 21:57:00 Test Item Value Reference Range Interpretation Comments POC-GLUCOSE METER 222 mg/dL 70-110 H TESTED AT [facility] 6720 (BEAKER) (test code = [place] 1538) [id number] CBC (HEMOGRAM ONLY)2017-01-13 18:08:00 Test Item Value [...] 0-0 (BEAKER) (test code = 413) 0.00POCT-GLUCOSE [id number] 17:32:00 Test Item Value Reference Range Interpretation Comments POC-GLUCOSE METER 347 mg/dL 70-110 H Notified R Ike BARCLAY/TESTED (BEAKER) (test code = AT [facility] 67[address] [facility] 7210) [place] [address] B-TYPE NATRIURETIC FACTOR (BNP)2017-01-13 15:39:00 Test Item Value Reference Range Interpretation Comments B-TYPE NATRIURETIC PEPTIDE (BEAKER) 53 pg/mL 0-100 (test code = 700) LACTATE DEHYDROGENASE (LDH)2017-01-13 15:37:00 Test Item Value Reference Range Interpretation Comments LACTATE DEHYDROGENASE (BEAKER) (test 290 U/L 125-220 H code = 635) [id number] 13:55:00 Test Item Value Reference Range Interpretation Comments LIPASE (BEAKER) (test code = 749) 26 U/L 8-78 BASIC METABOLIC [id number] 13:55:00 Test Item Value Reference Range Interpretation [...] APPLICABLE FOR DIALYSIS PATIEN TS. HEPATIC FUNCTION [id number] 13:55:00 Test Item Value Reference Range Interpretation [...] 6-55 347) CBC W/PLT COUNT & AUTO [id number] 13:43:00 Test Item Value Reference Range Interpretation [...] K/ L 0.00-0.20 (test code = 417) [id number] 13:40:00 Test Item Value Reference Range Interpretation [...]
[2021-06-13 11:42] LABS: Absolute Lymphocytes (CBC) 1.2 K/uL (0.7-4.9); Basophils % 1.1 % (0-1.3); Hematocrit 35.4 % (39.6-49.0); Lymphocytes % 9.4 % (15.3-44.8); MPV 8.3 fL (7.6-11.3); RBC Red Blood Cell Count 4.66 M/uL (4.33-5.43)
[2021-06-13] MEDS ORDERED: NA CHLORIDE 0.9% 500 ML ONE (11:48)
[2021-06-13] MEDS ORDERED: ONDANSETRON 4 MG/2 ML VIAL ONE (11:56)
[2021-06-13 12:02] LABS: Protime INR 2.63
--- NOTE | 2021-06-13 12:02 | RAD REPORT ---
EXAM DESCRIPTION: CT - Head Brain Wo Cont - 06/13/2021 11:47 am CLINICAL HISTORY: SYNCOPE Headache, drowsiness COMPARISON: Head angio dated 09/11/2018; HEAD BRAIN W O CONTRAST dated 08/28/2015 TECHNIQUE: All CT scans are performed using dose optimization technique as appropriate and may inclu de automated exposure control or mA/KV adjustment according to patient size. FINDINGS: No intracranial hemorrhage, hydrocephalus or extra-axial fluid collection.Mild periventric ular chronic microvascular ischemic changes.No areas of brain edema or evidence of midline shift. The paranasal sinuses and mastoids are clear. The calvarium is intact. Mild vertebral atherosclerosis . IMPRESSION: No acute intracranial abnormality.
[2021-06-13 12:13] LABS: ALT/SGPT 14 U/L (12-78); AST/SGOT 15 U/L (15-37); Alkaline Phosphatase 98 U/L (45-117); BUN Blood Urea Nitrogen 41 mg/dL (7-18); Bicarbonate 28 mmol/L (21-32); Bilirubin Direct 0.3 mg/dL (0-0.2); Bilirubin Total 0.8 mg/dL (0.2-1.0); Glucose Level 212 mg/dL (74-106); Lipase 133 U/L (73-393); Magnesium 2.1 mg/dL (1.8-2.4); Potassium 4.4 mmol/L (3.5-5.1); Protein, Total 7.8 g/dL (6.4-8.2); Sodium Level 134 mmol/L (136-145); Troponin (Emerg Dept Use Only) < 0.02 ng/mL (0.0-0.045)
--- NOTE | 2021-06-13 12:15 | RAD REPORT ---
EXAM DESCRIPTION: CT - Abdomen Pelvis Wo Contrast - 06/13/2021 11:47 am CLINICAL HISTORY: Abdominal pain. Abd pain;Nausea / vomiting COMPARISON: Abdomen Pelvis W Contrast dated 11/06/2016 TECHNIQUE: CT imaging of the abdomen and pelvis was performed without contrast. Solid organ, bowel a nd vascular assessment is limited due to lack of IV and oral contrast. All CT scans are performed using dose optimization technique as appropriate and may include automated exposure control or mA/KV adjustment according to patient size. FINDINGS: The lower lung torres are clear. The liver has a nodular contour compatible with cirrhosis. The spleen, pancreas, adrenal glands and k idneys are within normal limits for a limited non-contrast examination.Numerous gallstones are presen t gallbladder. No bowel obstruction, free air, free fluid or abscess. The appendix appears surgically absent. Moder ate aortoiliac atherosclerosis. Moderate lumbosacral degenerative changes.Small fat containing right inguinal hernia. IMPRESSION: Mild diffuse pattern of liver cirrhosis. Full liver parenchymal assessment is limited du e to noncontrast nature of the study. Cholelithiasis. A limited non-contrast examination was performed as detailed.
--- NOTE | 2021-06-13 12:39 | RAD REPORT ---
EXAM DESCRIPTION: RAD - Chest Single View - 06/13/2021 12:18 pm CLINICAL HISTORY: syncope, LVAD Chest pain. COMPARISON: Chest Single View dated 04/06/2021; Chest Single View dated 09/11/2018; Chest Single View dated 11/06/2016; CHEST SINGLE VIEW dated 01/26/2016 FINDINGS: Portable technique limits examination quality. The lungs are grossly clear. LVAD is present with multilead pacer/defibrillator device noted. No disp laced fractures.Heart size is upper limit normal. IMPRESSION: No acute intrathoracic process suspected.
--- NOTE | 2021-06-14 08:01 | EKG ---
Test Date: 2021-06-13 Test Time: 11:31:36 Fur Trapper: ALONSO MEASUREMENT RESULTS: Intervals: Rate: 67 IA: QRSD: 166 QT: 512 QTc: 541 [place]: P: IA: QRS: 247 T: 85 INTERPRETIVE STATEMENTS: Suspect arm lead reversal, interpretation assumes no reversal Wide QRS rhythm with frequent premature ventricular complexes Nonspecific intraventricular block Right ventricular hypertrophy Cannot rule out Septal infarct, age undetermined Possible Lateral infarct, age undetermined Abnormal ECG Compared to ECG 04/06/2021 16:33:16 Uncertain supraventricular rhythm now present Ventricular premature complex(es) now present Right ventricular hypertrophy now present Myocardial infarct finding now present Ventricular-paced complex(es) or rhythm no longer present Electronically Signed On 06-14-21 07:57:48 CDT by Paras Erickson
--- NOTE | 2021-06-14 17:20 | ER ---
Nurse's Notes [facility] Name: Jose Lizama Age: 61 yrs Sex: Male : 1960 Arrival Date: 06/13/2021 Time: 11:09 Bed 15 Private MD: Diagnosis: Syncope;Unspecified combined systolic (congestive) and diastolic (congestive) heart failure Presentation: 06/13 11:12 Chief complaint: Patient's son or daughter states: "People in front of hospital stated vg1 pt fell in front lobby of [facility], not too sure if he hit his head" Pt stated doesn't remember falling but woke up on noticed was on the floor. Pt seems to be pale and in pain. 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 Stated pts FSBS was done in front lobby and was about 180. Coronavirus screen: Client denies travel out of the [place] in the last 14 days. Ebola Screen: Patient negative for fever greater than or equal to 101.5 degrees Fahrenheit, and additional compatible Ebola Virus Disease symptoms. Initial Sepsis Screen: Does the patient meet any 2 criteria? No. Patient's initial sepsis screen is negative. Does the patient have a suspected source of infection?. Risk Assessment: Do you want to hurt yourself or someone else? Patient reports no desire to harm self or others. Onset of symptoms was June 13, 2021. 11:12 Method Of Arrival: Wheelchair vg1 11:12 Acuity: ANIL 2 vg1 Historical: - Allergies: 14:41 No Known Drug Allergies; ph - Home Meds: 11:15 aspirin 81 mg Oral chew 1 tab once daily [Active]; atorvastatin 20 mg Oral tab vg1 [Active]; carvedilol 37.5 mg Oral tab 1 tab 2 times per day [Active]; digoxin 125 mcg Oral tab 1 tab once daily [Active]; docusate sodium 100 mg Oral cap [Active]; eplerenone 25 mg Oral tab 1 tab once daily [Active]; ferrous sulfate 325 mg (65 mg iron) Oral TbEC 325 mg three times a day [Active]; folic acid 1 mg Oral tab 1 tab once daily [Active]; ivabradine 5mg Oral 2 times per day [Active]; Lantus 100 unit/mL Sub-Q soln 30 unit [Active]; levothyroxine 50 mcg tab 1 tab once daily [Active]; losartan 50 mg Oral tab 1 tab once daily [Active]; - PMHx: 11:16 CHF; Diabetes - NIDDM; Hypertension; vg1 - Immunization history:: Adult Immunizations. - Family history:: not pertinent. - Social history:: Smoking status: Patient denies any tobacco usage or history of. - Hospitalizations: : No recent hospitalization is reported. Screenin:39 Abuse screen: Denies threats or abuse. Denies injuries from another. Nutritional ph screening: No deficits noted. Tuberculosis screening: No symptoms or risk factors identified. Fall Risk None identified. Assessment: 12:04 General: Appears in no apparent distress. uncomfortable, well groomed, Behavior is ph calm, cooperative, appropriate for age, Denies fever, feeling ill. Pain: Complains of pain in chest. Neuro: Level of Consciousness is awake, alert, obeys commands, Oriented to person, place, time, situation, Reports dizziness, a syncopal episode weakness. Cardiovascular: Reports fatigue, lightheadedness, syncope, Capillary refill < 3 seconds in bilateral fingers Patient's skin is warm and dry. LVAD in place. Respiratory: Airway is patent Respiratory effort is even, unlabored. GI: Reports nausea, Patient currently denies abdominal pain, diarrhea, vomiting. Derm: Skin is pink, warm \\T\\ dry. Musculoskeletal: Circulation, motion, and sensation intact. Range of motion: intact in all extremities. Injury Description: Abrasion sustained to left elbow. 13:30 Reassessment: Patient appears in no apparent distress at this time. Patient and/or ph family updated on plan of care and expected duration. Pain level reassessed. Patient is alert, oriented x 3, equal unlabored respirations, skin warm/dry/pink. 14:57 Reassessment: Patient appears in no apparent distress at this time. Patient and/or ph family updated on plan of care and expected duration. Pain level reassessed. Patient is alert, oriented x 3, equal unlabored respirations, skin warm/dry/pink. Report called to KENZIE Garza at [facility]. 15:32 Reassessment: Patient appears in no apparent distress at this time. Patient and/or ph family updated on plan of care and expected duration. Pain level reassessed. Patient is alert, oriented x 3, equal unlabored respirations, skin warm/dry/pink. [facility] at bedside, report given to EMT-P. Vital Signs: 11:12 BP 61 / 50; Pulse 61; Resp 22; Temp 97.1; Pulse Ox 98% ; Pain 6/10; vg1 12:03 BP 104 / 80; Pulse 48; Resp 24; Pulse Ox 97% on R/A; ph 13:00 BP 83 / 59; Pulse 60; Resp 18; Pulse Ox 99% on R/A; ph 14:00 BP 97 / 52; Pulse 58; Resp 18; Pulse Ox 99% on R/A; ph 15:03 BP 103 / 43; Pulse 60; Resp 18; Pulse Ox 97% on R/A; ph ED Course: 11:09 Patient arrived in ED. vg1 11:11 Gaurav Padron MD is Attending Physician. rn 11:14 Chhaya Rueda RN is Primary Nurse. ph 11:15 Triage completed. vg1 11:25 Inserted saline lock: 22 gauge in right antecubital area, using aseptic technique. ph Blood collected. 11:39 Initial lab(s) drawn, by me, sent to lab. First set of blood cultures drawn by me. ph 11:39 Arm band placed on. ph 11:39 Patient has correct armband on for positive identification. Bed in low position. Call ph light in reach. Side rails up X2. Pulse ox on. NIBP on. Door closed. Noise minimized. Warm blanket given. 11:47 CT Head Brain wo Cont In Process Unspecified. EDMS 11:47 CT Abd/Pelvis - Without Contrast In Process Unspecified. EDMS 12:18 XRAY Chest (1 view) In Process Unspecified. EDMS 12:38 Initiated transfer to [facility]. em1 15:01 No provider procedures requiring assistance completed. Patient transferred, IV remains ph in place. Administered Medications: 11:31 Drug: NS 0.9% 500 ml Route: IV; Rate: bolus; Site: left antecubital; ph 12:00 Follow up: Response: No adverse reaction; IV Status: Completed infusion; IV Intake: ph 500ml 11:38 Drug: Zofran (Ondansetron) 4 mg Route: IVP; Site: left antecubital; ph 15:01 Follow up: Response: No adverse reaction ph Intake: 12:00 IV: 500ml; Total: 500ml. ph Outcome: 12:55 ER care complete, transfer ordered by MD. gomez 15:31 Transferred by ground EMS [facility]. to [facility], [facility], Transfer ph form completed. X-rays sent w/ patient. 15:31 Condition: stable 15:31 Instructed on the need for transfer. 15:34 Patient left the ED. ph Signatures: Dispatcher [employer] EDMS Gaurav Padron MD MD rn Kip, Devin em1 Chhaya Rueda RN RN Yoalnda Lopez RN RN vg1 Corrections: (The following items were deleted from the chart) 11:16 11:12 Chief complaint: Patient's son or daughter states: "People in front of hospital vg1 stated pt fell in front lobby of hospital, not too sure if he hit his head" Pt stated doesn't remember falling but woke up on noticed was on the floor. Pt seems to be pale and in pain. 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 vg1
--- NOTE | 2021-06-14 17:20 | EDPHYS ---
Physician Documentation [facility] Name: Jose Lizama Age: 61 yrs Sex: Male : 1960 Arrival Date: 06/13/2021 Time: 11:09 Bed 15 Private MD: ED Physician Gaurav Padron HPI: 06/13 11:27 This 61 yrs old Male presents to ER via Wheelchair with complaints of Syncope.rn 11:27 The patient has experienced syncope. Onset: The symptoms/episode began/occurred just rn prior to arrival. Duration: This was a single episode. Associated injury: The patient did not suffer any apparent associated injury. Current symptoms: Currently, the patient is not experiencing any symptoms. The patient has experienced similar episodes in the past. The patient has not recently seen a physician. Patient reports was here for standard blood tests and blood draw, has been feeling a little weak lately, had witnessed syncopal episode here in hospital. Reports recent nausea vomiting and nonspecific abdominal pain. Has LVAD and on Coumadin. Sees Dr. Nieto at [facility] per son. Denies chest pain or trouble breathing. No recent fever or shortness of breath.. Historical: - Allergies: 14:41 No Known Drug Allergies; ph - Home Meds: 11:15 aspirin 81 mg Oral chew 1 tab once daily [Active]; atorvastatin 20 mg Oral tab vg1 [Active]; carvedilol 37.5 mg Oral tab 1 tab 2 times per day [Active]; digoxin 125 mcg Oral tab 1 tab once daily [Active]; docusate sodium 100 mg Oral cap [Active]; eplerenone 25 mg Oral tab 1 tab once daily [Active]; ferrous sulfate 325 mg (65 mg iron) Oral TbEC 325 mg three times a day [Active]; folic acid 1 mg Oral tab 1 tab once daily [Active]; ivabradine 5mg Oral 2 times per day [Active]; Lantus 100 unit/mL Sub-Q soln 30 unit [Active]; levothyroxine 50 mcg tab 1 tab once daily [Active]; losartan 50 mg Oral tab 1 tab once daily [Active]; - PMHx: 11:16 CHF; Diabetes - NIDDM; Hypertension; vg1 - Immunization history:: Adult Immunizations. - Family history:: not pertinent. - Social history:: Smoking status: Patient denies any tobacco usage or history of. - Hospitalizations: : No recent hospitalization is reported. ROS: 11:27 Constitutional: Negative for fever, chills, and weight loss, Eyes: Negative for injury, rn pain, redness, and discharge, Neck: Negative for injury, pain, and swelling, Cardiovascular: Negative for chest pain, palpitations Respiratory: Negative for shortness of breath, cough, wheezing, and pleuritic chest pain, Abdomen/GI: Negative for abdominal pain, nausea, vomiting, diarrhea, and constipation, Back: Negative for injury and pain, : Negative for injury, bleeding, discharge, and swelling, MS/Extremity: Negative for injury and deformity, Skin: Negative for injury, rash, and discoloration, Neuro: Negative for headache, numbness, tingling, and seizure. Exam: 11:27 Constitutional: This is a well developed, well nourished patient who is awake, appears rn generally weak but responding to all questions and commands Head/Face: Normocephalic, atraumatic. Eyes: Periorbital areas with no swelling, redness, or edema. ENT: Dry mucous membranes Cardiovascular: No palpable pulse due to LVAD, no cyanosis Respiratory: Mild tachypnea, diminished breath sounds at bases Abdomen/GI: Soft, mild tenderness periumbilical and epigastric region Skin: No cyanosis or evidence of cellulitis MS/ Extremity: No palpable pulse due to LVAD Neuro: Awake, GCS 15, oriented to person, place, time, and situation. Cranial nerves II-XII grossly intact. Motor strength 4/5 in all extremities. Sensory grossly intact. Vital Signs: 11:12 BP 61 / 50; Pulse 61; Resp 22; Temp 97.1; Pulse Ox 98% ; Pain 6/10; vg1 12:03 BP 104 / 80; Pulse 48; Resp 24; Pulse Ox 97% on R/A; ph 13:00 BP 83 / 59; Pulse 60; Resp 18; Pulse Ox 99% on R/A; ph 14:00 BP 97 / 52; Pulse 58; Resp 18; Pulse Ox 99% on R/A; ph 15:03 BP 103 / 43; Pulse 60; Resp 18; Pulse Ox 97% on R/A; ph MDM: 11:11 Patient medically screened. rn 12:53 Differential Diagnosis: cardiac arrhythmia, emotional response, idiopathic syncope, rn vasovagal episode. Data reviewed: vital signs, nurses notes, lab test result(s), EKG, radiologic studies, CT scan, plain films, and as a result, I will admit patient. Counseling: I had a detailed discussion with the patient and/or guardian regarding: the historical points, exam findings, and any diagnostic results supporting the discharge/admit diagnosis, lab results, radiology results, the need for further work-up and treatment in the hospital, the need to transfer to another facility, for higher level of care, [facility] does not immediately have the required specialist. Response to treatment: the patient's symptoms have mildly improved after treatment, and as a result, I will admit patient. ED course: Patient feels a little better since arrival, no acute findings on CAT scan, EKG without gross arrhythmia, attempting to transfer to [facility] for observation given his loftsman/woman is there and patient with LVAD. Awaiting callback from [facility]. 06/13 11:17 Order name: Basic Metabolic Panel 06/13 11:17 Order name: CBC with Diff 06/13 11:17 Order name: Hepatic Function 06/13 11:17 Order name: Lipase; Complete Time: 12:33 06/13 11:17 Order name: Magnesium; Complete Time: 12:33 06/13 11:17 Order name: Protime (+inr); Complete Time: 12:33 06/13 11:17 Order name: Ptt, Activated; Complete Time: 12:33 06/13 11:17 Order name: Troponin (emerg Dept Use Only); Complete Time: 12:33 06/13 11:17 Order name: Procalcitonin; Complete Time: 12:59 06/13 11:17 Order name: Blood Culture Adult (2) 06/13 11:17 Order name: Basic Metabolic Panel; Complete Time: 12:33 EDMD 06/13 11:17 Order name: CBC with Automated Diff; Complete Time: 12:00 [facility] 06/13 11:17 Order name: Liver (Hepatic) Function; Complete Time: 12:33 [facility] 06/13 11:17 Order name: CT Head Brain wo Cont; Complete Time: 12:33 06/13 11:17 Order name: EKG; Complete Time: 11:17 06/13 11:17 Order name: Cardiac monitoring; Complete Time: 11:23 rn 06/13 11:17 Order name: EKG - Nurse/Tech; Complete Time: 11:38 rn 06/13 11:17 Order name: IV Saline Lock; Complete Time: 11:38 rn 06/13 11:17 Order name: Labs collected and sent; Complete Time: 11:38 rn 06/13 11:17 Order name: NPO; Complete Time: 11: rn 06/13 11:17 Order name: O2 Per Protocol; Complete Time: 11: rn 06/13 11:17 Order name: O2 Sat Monitoring; Complete Time: 11: rn 06/13 11:18 Order name: XRAY Chest (1 view); Complete Time: 12:40 rn 06/13 11:19 Order name: CT Abd/Pelvis - Without Contrast; Complete Time: 12:33 rn 06/13 11:22 Order name: glucometer results - FOR PT WITH NO ID mt 06/13 13:23 Order name: SARS-COV-2 RT PCR; Complete Time: 14:20 EDMS Administered Medications: 11:31 Drug: NS 0.9% 500 ml Route: IV; Rate: bolus; Site: left antecubital; ph 12:00 Follow up: Response: No adverse reaction; IV Status: Completed infusion; IV Intake: ph 500ml 11:38 Drug: Zofran (Ondansetron) 4 mg Route: IVP; Site: left antecubital; ph 15:01 Follow up: Response: No adverse reaction ph Disposition Summary: 06/13/21 12:55 Transfer Ordered Transfer Location: [facility] rn Reason: Higher level of care rn Condition: Stable rn Problem: new rn Symptoms: have improved rn Accepting Physician: (06/13/21 15:34) ph Diagnosis - Syncope rn - Unspecified combined systolic (congestive) and diastolic (congestive) heart failure rn Forms: - Medication Reconciliation Form rn - SBAR form rn Signatures: Dispatcher [employer] EDMS Gaurav Padron MD MD rn Hall, Patricia RN RN ph Keshav, Yolanda, RN RN vg1 Corrections: (The following items were deleted from the chart) 12:19 11:18 CORONAVIRUS+MR.LAB.BRZ ordered. EDMS EDMS 15:34 12:55 Dr. rn ph
[2021-06-15 08:27] VITALS: TEMP 97.1
[2021-06-15 08:34] VITALS: BP 103/43; O2SAT 97
== END 2021-06-13 15:34 | disposition short-term general hospital (02) ==
LOC: ER 11:03
DX: I50.40 Unspecified combined systolic (congestive) and diastolic (congestive) heart failure (principal); I10 Essential (primary) hypertension; E11.9 Type 2 diabetes mellitus without complications; Z20.822 Contact with and (suspected) exposure to COVID-19; Z79.82 Long term (current) use of aspirin; Z79.4 Long term (current) use of insulin
CPT/HCPCS: 93005; 87040 ×2; 85025; 80048; 36415; 83735; 87205 ×4; 85610; 82947; 80076; 85730; 84484; 83690; 84145; 70450; 74176; 71045; U0003; J7040; J2405